=== PATIENT | male | born 1945 | race Caucasian/White ===

== ENCOUNTER 2017-03-05 20:19 | Inpatient (IN) | payer MEDICARE ==
[~2017-03-05] VITALS: Ht 172.7 cm; Wt 115.8 kg
[2017-03-06] MEDS ORDERED: METO25TA4 PO (02:40)
[2017-03-06] MEDS ORDERED: TERB250T PO (02:40)
[2017-03-06] MEDS ORDERED: PRAV40TA2 PO (02:40)
[2017-03-06] MEDS ORDERED: KETO15VI18 IV (02:40)
[2017-03-06] MEDS ORDERED: POTA20TA4 PO (02:40)
[2017-03-06] MEDS ORDERED: LISI-334 PO (02:40)
[2017-03-06] MEDS ORDERED: FURO-68 PO (02:40)
[2017-03-06] MEDS ORDERED: INSU100I13 SQ (02:40)
[2017-03-06] MEDS ORDERED: INSU100I17 SQ (02:40)
[2017-03-06] MEDS ORDERED: GABA-585 PO (02:40)
[2017-03-06] MEDS ORDERED: ACET325T9 PO (02:40)
[2017-03-06] MEDS ORDERED: VENL75CA PO (02:40)
[2017-03-06] MEDS ORDERED: GABA-586 PO (02:40)
[2017-03-06 15:28] VITALS: BP 182/80
[2017-03-06] MEDS ORDERED: MAG HYDROX/AL HYDROX/SIMETH 30 ML ORAL.SUSP PO PRN (16:15)
[2017-03-06] MEDS ORDERED: METHYL SALICYLATE/MENTHOL TOPICAL OINTMENT 29GM TUBE. TP PRN (16:15)
[2017-03-06 16:18] VITALS: BP 182/80
[2017-03-06] MEDS ORDERED: ACETAMINOPHEN 325 MG TABLET PO PRN (16:30)
[2017-03-06] MEDS ORDERED: DEXTROSE ORAL GEL 15 GM TUBE. PO PRN (16:30)
[2017-03-06] MEDS ORDERED: DEXTROSE 50% 25 GM / 50ML DISP.SYRIN. IV PRN (16:30)
--- NOTE | 2017-03-06 16:54 | EKG ---
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
[2017-03-06 17:17] LABS: ALBUMIN 3.1 g/dL (3.4-5.0); ALBUMIN/GLOBULIN RATIO 0.7 (1.0-1.7); CALCIUM 8.6 mg/dL (8.5-10.1); GFR 73.5; MAGNESIUM 1.9 mg/dL (1.8-2.4); POTASSIUM 3.9 mmol/L (3.5-5.1); TOTAL BILIRUBIN 0.4 mg/dL (0.2-1.0); TOTAL PROTEIN 7.3 g/dL (6.4-8.2)
[2017-03-06 17:34] LABS: BASO % 0 % (0-3); EOS # 0.1 x10^3/uL (0.0-0.7); EOS % 1 % (0-3); HEMATOCRIT 44.4 % (39.0-53.0); HEMOGLOBIN 14.9 g/dL (13.0-17.5); LYMPH # 0.8 x10^3/uL (1.0-4.8); LYMPH % 9 % (24-48); MEAN CORPUSCULAR HEMOGLOBIN 30 pg (25-35); MEAN CORPUSCULAR HGB CONC 34 g/dL (31-37); MEAN CORPUSCULAR VOLUME 90 fL (79-100); MONO # 0.5 x10^3/uL (0.0-1.1); MONO % 6 % (0-9); NEUT # 7.4 x10^3uL (1.8-7.7); NEUT % 83 % (31-73); PLATELET COUNT 146 x10^3/uL (140-400); RED BLOOD COUNT 4.95 x10^6/uL (4.30-5.70); RED CELL DISTRIBUTION WIDTH 14.9 % (11.5-14.5); WHITE BLOOD COUNT 8.9 x10^3/uL (4.0-11.0)
[2017-03-06] MEDS: INSULIN ASPART 300 UNITS/3 ML INSULN.PEN SQ SCH ×3 (18:09→21:00)
[2017-03-06] MEDS: GABAPENTIN 300 MG CAPSULE. PO SCH (19:36)
[2017-03-06] MEDS: PRAVASTATIN 20 MG TABLET. PO SCH (19:37)
[2017-03-06] MEDS: METOPROLOL TART IMMED RELEASE 25 MG TABLET PO SCH (19:37)
[2017-03-06] MEDS: TERBINAFINE 1% TOPICAL CREAM 30GM TUBE. TP SCH (19:44)
[2017-03-06] MEDS ORDERED: INSULIN DETEMIR 300 UNITS/3 ML INSULN.PEN. SQ SCH ×3 (21:00)
[2017-03-06] MEDS: NYSTATIN/TRIAMCIN TOPICAL CREAM 15GM TUBE. TP SCH (22:32)
[2017-03-07 03:16] LABS: T3 TOTAL 96 ng/dL (71-180); THYROXINE 6.7 ug/dL (4.5-12.0)
[2017-03-07 05:08] LABS: HEMOGLOBIN A1C 10.6 % (4.8-5.6)
[2017-03-07 05:52] VITALS: BP 166/79
[2017-03-07] MEDS: NYSTATIN/TRIAMCIN TOPICAL CREAM 15GM TUBE. TP SCH ×2 (06:00→19:34)
[2017-03-07] MEDS: TERBINAFINE 1% TOPICAL CREAM 30GM TUBE. TP SCH ×2 (06:00→19:34)
[2017-03-07] MEDS: INSULIN ASPART 300 UNITS/3 ML INSULN.PEN SQ SCH ×7 (07:30→17:24)
[2017-03-07] MEDS: GABAPENTIN 100 MG CAPSULE. PO SCH ×2 (08:05→11:34)
[2017-03-07] MEDS: FLUCONAZOLE 100 MG TABLET. PO SCH (08:06)
[2017-03-07] MEDS: VENLAFAXINE XR 37.5 MG CAP.ER.24H. PO SCH (08:06)
[2017-03-07] MEDS: POTASSIUM CHLORIDE 20 MEQ TABLET.ER. PO SCH (08:07)
[2017-03-07] MEDS: FUROSEMIDE 40 MG TABLET PO SCH (08:07)
[2017-03-07] MEDS: METOPROLOL TART IMMED RELEASE 25 MG TABLET PO SCH ×2 (08:07→19:32)
[2017-03-07] MEDS: INSULIN DETEMIR 300 UNITS/3 ML INSULN.PEN. SQ SCH ×2 (08:58→19:34)
[2017-03-07] MEDS ORDERED: LISINOPRIL 20 MG TABLET PO SCH (09:00)
[2017-03-07] MEDS ORDERED: INSULIN DETEMIR 300 UNITS/3 ML INSULN.PEN. SQ SCH ×2 (09:00)
[2017-03-07 11:56] LABS: THYROID STIM HORMONE (TSH) 1.831 uIU/mL (0.358-3.740)
[2017-03-07 15:41] VITALS: BP 167/76
[2017-03-07] MEDS: PRAVASTATIN 20 MG TABLET. PO SCH (19:32)
[2017-03-07] MEDS: GABAPENTIN 300 MG CAPSULE. PO SCH (19:32)
[2017-03-07] MEDS: CHOLECALCIFEROL (VITAMIN D3) 50,000 UNIT CAPSULE PO SCH (19:33)
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
[2017-03-08 05:54] VITALS: BP 174/80
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
[2017-03-08] MEDS: INSULIN ASPART 300 UNITS/3 ML INSULN.PEN SQ SCH ×5 (07:30→18:12)
[2017-03-08] MEDS: GABAPENTIN 100 MG CAPSULE. PO SCH ×2 (07:54→11:32)
[2017-03-08] MEDS: FLUCONAZOLE 100 MG TABLET. PO SCH (09:08)
[2017-03-08] MEDS: POTASSIUM CHLORIDE 20 MEQ TABLET.ER. PO SCH (09:09)
[2017-03-08] MEDS: FUROSEMIDE 40 MG TABLET PO SCH (09:09)
[2017-03-08] MEDS: VENLAFAXINE XR 37.5 MG CAP.ER.24H. PO SCH (09:09)
[2017-03-08] MEDS: NYSTATIN/TRIAMCIN TOPICAL CREAM 15GM TUBE. TP SCH ×2 (09:10→19:27)
[2017-03-08] MEDS: METOPROLOL TART IMMED RELEASE 25 MG TABLET PO SCH ×2 (09:10→19:29)
[2017-03-08] MEDS: LISINOPRIL 20 MG TABLET PO SCH (09:13)
[2017-03-08] MEDS: INSULIN DETEMIR 300 UNITS/3 ML INSULN.PEN. SQ SCH ×2 (09:28→19:30)
[2017-03-08] MEDS: TERBINAFINE 1% TOPICAL CREAM 30GM TUBE. TP SCH ×2 (09:29→19:27)
[2017-03-08] MEDS: NYSTATIN TOPICAL POWDER 15GM BOTTLE. TP PRN ×2 (13:03→19:28)
[2017-03-08 16:36] VITALS: BP 151/69
[2017-03-08] MEDS: GABAPENTIN 300 MG CAPSULE. PO SCH (19:28)
[2017-03-08] MEDS: PRAVASTATIN 20 MG TABLET. PO SCH (19:28)
--- NOTE | 2017-03-09 01:55 | PN ---
DATE: 03/08/2017 SUBJECTIVE: The patient was seen today, met with the staff, chart reviewed. The patient's behavior improved, withdrawn, isolative. Staff reports no major problems. The patient denies of any physical complaints. OBSERVATION: VITAL SIGNS: Temperature 97.3, blood pressure 174/80, pulse 71, respirations 14, O2 sat 94%. Slept about 7-1/2 hours last night. CURRENT MEDICATIONS: The patient's current medications include Effexor 75 mg daily, gabapentin 100 mg b.i.d. and 300 mg at night. The patient currently not admitting to having any major problems, feeling depressed. The patient's main problem being impulsive, poor decision making, lack of insight and also history of alcoholism, not able to stay clean. ASSESSMENT: 1. Alcohol dependence, chronic. 2. Cognitive disorder, unspecified. 3. Rule out alcohol amnestic disorder. PLAN: Continue with the treatment. WILI FREEMAN MD DR: KEISHA/james JOB#: [id number] / [id number]
[2017-03-09 06:11] VITALS: BP 161/82
[2017-03-09] MEDS: INSULIN ASPART 300 UNITS/3 ML INSULN.PEN SQ SCH ×6 (07:30→18:11)
[2017-03-09] MEDS: METOPROLOL TART IMMED RELEASE 25 MG TABLET PO SCH ×2 (07:57→19:54)
[2017-03-09] MEDS: LISINOPRIL 20 MG TABLET PO SCH (07:57)
[2017-03-09] MEDS: FUROSEMIDE 40 MG TABLET PO SCH (07:58)
[2017-03-09] MEDS: FLUCONAZOLE 100 MG TABLET. PO SCH (07:58)
[2017-03-09] MEDS: POTASSIUM CHLORIDE 20 MEQ TABLET.ER. PO SCH (07:58)
[2017-03-09] MEDS: GABAPENTIN 100 MG CAPSULE. PO SCH ×2 (07:58→12:39)
[2017-03-09] MEDS: VENLAFAXINE XR 37.5 MG CAP.ER.24H. PO SCH (07:58)
[2017-03-09] MEDS: TERBINAFINE 1% TOPICAL CREAM 30GM TUBE. TP SCH ×2 (07:59→19:51)
[2017-03-09] MEDS: NYSTATIN/TRIAMCIN TOPICAL CREAM 15GM TUBE. TP SCH ×2 (08:00→19:51)
[2017-03-09] MEDS: INSULIN DETEMIR 300 UNITS/3 ML INSULN.PEN. SQ SCH ×2 (08:04→19:56)
[2017-03-09 15:58] VITALS: BP 163/86
[2017-03-09] MEDS: GABAPENTIN 300 MG CAPSULE. PO SCH (19:52)
[2017-03-09] MEDS: QUEtiapine 25 MG TABLET. PO SCH (19:54)
[2017-03-09] MEDS: PRAVASTATIN 20 MG TABLET. PO SCH (19:55)
--- NOTE | 2017-03-09 20:35 | PDOC ---
Exam Adriano Demential Exam: Adriano Note: Please also refer to the separate dictated note~for this date of service dictated separately.~Patient seen individually. Discussed the patient with Nursing staff reviewed the chart.~Reviewed interim history and current functioning. Reviewed vital signs,~Labs/ Radiology~and current medications noted below. Continue current treatment with the changes noted in the dictated addendum note Assessment: Vital Signs: Vital Signs Date Time Temp Pulse Resp B/P (MAP) Pulse Ox O2 Delivery O2 Flow Rate FiO2 03/09/17 19:54 65 163/86 03/09/17 15:58 97.6 16 96 03/09/17 06:11 Room Air I&O Intake and Output 03/10/17 07:00 Intake Total 1040 ml Balance 1040 ml Intake Oral 1040 ml Labs: Laboratory Tests Test 03/09/17 06:59 03/09/17 11:32 03/09/17 17:29 03/09/17 19:20 Glucose (Fingerstick) 93 mg/dL (70-99) 198 mg/dL (70-99) H 240 mg/dL (70-99) H 236 mg/dL (70-99) H Current Medications: Meds: Current Medications Multi-Ingredient Ointment (Analgesic [place]) 1 raquel PRN QID PRN TP MUSCLE PAIN; Start 03/06/17 at 16:15 Al Hydroxide/Mg Hydroxide (Mylanta Plus Xs) 15 ml PRN AFTMEALHC PRN PO DYSPEPSIA; Start 03/06/17 at 16:15 Magnesium Hydroxide (Milk Of Magnesia) 2,400 mg PRN QHS PRN PO CONSTIPATION; Start 03/06/17 at 16:15 Acetaminophen (Tylenol) 650 mg PRN Q6HRS PRN PO PAIN / TEMP Last administered on 03/08/17 08:02; Start 03/06/17 at 16:30 Furosemide (Lasix) 40 mg DAILY PO Last administered on 03/09/17 07:58; Start 03/07/17 at 09:00 Gabapentin (Neurontin) 100 mg BIDACBL PO Last administered on 03/09/17 12:39 ; Start 03/07/17 at 07:30 Gabapentin (Neurontin) 300 mg QHS PO Last administered on 03/09/17 19:52; Start 03/06/17 at 21:00 Lisinopril (Prinivil) 20 mg DAILY PO Last administered on 03/07/17 08:07; Start 03/07/17 at 09:00; Stop 03/07/17 at 18:30; Status DC Metoprolol Tartrate (Lopressor) 25 mg BID PO Last administered on 03/09/17 19 :54; Start 03/06/17 at 21:00 Potassium Chloride (Klor-Con) 20 meq DAILY PO Last administered on 03/09/17 07:58; Start 03/07/17 at 09:00 Terbinafine HCl (LamISIL) 1 raquel BID TP Last administered on 03/09/17 19:51; Start 03/06/17 at 21:00 Insulin Detemir (Levemir) 30 units BID SQ ; Start 03/06/17 at 21:00; Stop at 21:00; Status DC Pravastatin Sodium (Pravachol) 40 mg QHS PO Last administered on 03/09/17 19: 55; Start 03/06/17 at 21:00 Venlafaxine HCl (Effexor Xr) 75 mg DAILY PO Last administered on 03/09/17 07: 58; Start 03/07/17 at 09:00 Insulin Aspart (NovoLOG) TID SQ Last administered on 03/06/17 18:09; Start 03/06/17 at 18:00; Stop 03/06/17 at 22:31; Status DC Dextrose 12.5 gm PRN Q15MIN PRN IV SEE COMMENTS; Start 03/06/17 at 16:30 Glucose (Insta-Glucose) 15 gm PRN Q15MIN PRN PO LOW BLOOD SUGAR; Start at 16:30 Insulin Detemir (Levemir) 36 units HS SQ ; Start 03/06/17 at 21:00; Stop 03/06 at 21:00; Status DC Insulin Detemir (Levemir) 30 units DAILY SQ ; Start 03/07/17 at 09:00; Stop at 09:00; Status DC Insulin Detemir (Levemir) 40 units HS SQ Last administered on 03/06/17 19:44 ; Start 03/06/17 at 21:00; Stop 03/06/17 at 22:31; Status DC Insulin Detemir (Levemir) 40 units DAILY SQ ; Start 03/07/17 at 09:00; Stop at 09:00; Status DC Fluconazole (Diflucan) 100 mg DAILY PO Last administered on 03/09/17 07:58; Start 03/07/17 at 09:00; Stop 03/14/17 at 09:01 Nystatin/ Triamcinolone Acetonide (Mycolog Ii) 1 raquel BID TP Last administered on 03/09/17 19:51; Start 03/06/17 at 21:00 Nystatin (Nystop) 1 raquel PRN BID PRN TP REDNESS Last administered on 03/08/17 19:28; Start 03/06/17 at 17:30 Insulin Aspart (NovoLOG) 5 units TIDAC SQ Last administered on 03/07/17 11:30 ; Start 03/06/17 at 18:00; Stop 03/07/17 at 17:21; Status DC Insulin Aspart (NovoLOG) TIDAC SQ Last administered on 03/09/17 18:11; Start 03/07/17 at 07:30 Insulin Detemir (Levemir) 40 units BID SQ Last administered on 03/09/17 19:56 ; Start 03/07/17 at 09:00 Insulin Aspart (NovoLOG) 10 units TIDAC SQ Last administered on 03/09/17 18: 11; Start 03/08/17 at 07:30 Lisinopril (Prinivil) 40 mg DAILY PO Last administered on 03/09/17 07:57; Start 03/08/17 at 09:00 Vitamin D (Vitamin D3) 50,000 unit Sa@2000 PO Last administered on 03/07/17 19:33; Start 03/07/17 at 20:00 Quetiapine Fumarate (SEROquel) 25 mg QHS PO Last administered on 03/09/17 19: 54; Start 03/09/17 at 21:00 Active Scripts Active Reported Effexor Xr (Venlafaxine Hcl) 75 Mg Cap.er.24h 75 Mg PO DAILY Lamisil (Terbinafine Hcl) 250 Mg Tablet 1 Raquel PO BID Pravastatin Sodium 40 Mg Tablet 40 Mg PO QHS Klor-Con M20 (Potassium Chloride) 20 Meq Tab.er.prt 20 Meq PO DAILY Metoprolol Tartrate 25 Mg Tablet 25 Mg PO BID Lisinopril 20 Mg Tablet 20 Mg PO DAILY Lantus Solostar (Insulin Glargine,Hum.rec.anlog) 100 Unit/1 Ml Insuln.pen 30 Unit SQ BID Gabapentin 300 Mg Capsule 300 Mg PO QHS Gabapentin 100 Mg Capsule 100 Mg PO BIDACBL Lasix (Furosemide) 40 Mg Tablet 40 Mg PO DAILY Tylenol (Acetaminophen) 325 Mg Tablet 650 Mg PO PRN Q4-6HRS PRN LIZ DIANE MD Mar 09, 2017 20:35
[2017-03-10 05:46] VITALS: BP 177/82
[2017-03-10] MEDS: INSULIN ASPART 300 UNITS/3 ML INSULN.PEN SQ SCH ×6 (07:30→17:55)
[2017-03-10] MEDS: NYSTATIN/TRIAMCIN TOPICAL CREAM 15GM TUBE. TP SCH ×2 (08:39→20:04)
[2017-03-10] MEDS: POTASSIUM CHLORIDE 20 MEQ TABLET.ER. PO SCH (08:39)
[2017-03-10] MEDS: TERBINAFINE 1% TOPICAL CREAM 30GM TUBE. TP SCH ×2 (08:39→20:04)
[2017-03-10] MEDS: GABAPENTIN 100 MG CAPSULE. PO SCH ×2 (08:40→12:16)
[2017-03-10] MEDS: LISINOPRIL 20 MG TABLET PO SCH (08:41)
[2017-03-10] MEDS: FLUCONAZOLE 100 MG TABLET. PO SCH (08:41)
[2017-03-10] MEDS: FUROSEMIDE 40 MG TABLET PO SCH (08:41)
[2017-03-10] MEDS: METOPROLOL TART IMMED RELEASE 25 MG TABLET PO SCH ×2 (08:41→20:02)
[2017-03-10] MEDS: VENLAFAXINE XR 37.5 MG CAP.ER.24H. PO SCH (08:41)
[2017-03-10] MEDS: INSULIN DETEMIR 300 UNITS/3 ML INSULN.PEN. SQ SCH ×2 (08:46→20:06)
[2017-03-10 16:07] VITALS: BP 128/71
[2017-03-10] MEDS: GABAPENTIN 300 MG CAPSULE. PO SCH (20:02)
[2017-03-10] MEDS: PRAVASTATIN 20 MG TABLET. PO SCH (20:02)
[2017-03-10] MEDS: QUEtiapine 25 MG TABLET. PO SCH (20:02)
--- NOTE | 2017-03-10 22:01 | PDOC ---
Exam Adriano Demential Exam: Adriano Note: Please also refer to the separate dictated note~for this date of service dictated separately.~Patient seen individually. Discussed the patient with Nursing staff reviewed the chart.~Reviewed interim history and current functioning. Reviewed vital signs,~Labs/ Radiology~and current medications noted below. Continue current treatment with the changes noted in the dictated addendum note Assessment: Vital Signs: Vital Signs Date Time Temp Pulse Resp B/P (MAP) Pulse Ox O2 Delivery O2 Flow Rate FiO2 03/10/17 20:02 76 128/71 03/10/17 16:07 97.8 20 94 03/09/17 06:11 Room Air I&O Intake and Output 03/11/17 07:00 Intake Total 1200 ml Balance 1200 ml Intake Oral 1200 ml Labs: Laboratory Tests Test 03/10/17 07:55 03/10/17 11:17 03/10/17 16:17 03/10/17 18:59 Glucose (Fingerstick) 143 mg/dL (70-99) H 251 mg/dL (70-99) H 276 mg/dL (70-99) H 247 mg/dL (70-99) H Current Medications: Meds: Current Medications Multi-Ingredient Ointment (Analgesic [place]) 1 raquel PRN QID PRN TP MUSCLE PAIN; Start 03/06/17 at 16:15 Al Hydroxide/Mg Hydroxide (Mylanta Plus Xs) 15 ml PRN AFTMEALHC PRN PO DYSPEPSIA; Start 03/06/17 at 16:15 Magnesium Hydroxide (Milk Of Magnesia) 2,400 mg PRN QHS PRN PO CONSTIPATION; Start 03/06/17 at 16:15 Acetaminophen (Tylenol) 650 mg PRN Q6HRS PRN PO PAIN / TEMP Last administered on 03/08/17 08:02; Start 03/06/17 at 16:30 Furosemide (Lasix) 40 mg DAILY PO Last administered on 03/10/17 08:41; Start 03/07/17 at 09:00 Gabapentin (Neurontin) 100 mg BIDACBL PO Last administered on 03/10/17 12:16 ; Start 03/07/17 at 07:30 Gabapentin (Neurontin) 300 mg QHS PO Last administered on 03/10/17 20:02; Start 03/06/17 at 21:00 Lisinopril (Prinivil) 20 mg DAILY PO Last administered on 03/07/17 08:07; Start 03/07/17 at 09:00; Stop 03/07/17 at 18:30; Status DC Metoprolol Tartrate (Lopressor) 25 mg BID PO Last administered on 03/10/17 20 :02; Start 03/06/17 at 21:00 Potassium Chloride (Klor-Con) 20 meq DAILY PO Last administered on 03/10/17 08:39; Start 03/07/17 at 09:00 Terbinafine HCl (LamISIL) 1 raquel BID TP Last administered on 03/10/17 20:04; Start 03/06/17 at 21:00 Insulin Detemir (Levemir) 30 units BID SQ ; Start 03/06/17 at 21:00; Stop at 21:00; Status DC Pravastatin Sodium (Pravachol) 40 mg QHS PO Last administered on 03/10/17 20: 02; Start 03/06/17 at 21:00 Venlafaxine HCl (Effexor Xr) 75 mg DAILY PO Last administered on 03/10/17 08: 41; Start 03/07/17 at 09:00 Insulin Aspart (NovoLOG) TID SQ Last administered on 03/06/17 18:09; Start 03/06/17 at 18:00; Stop 03/06/17 at 22:31; Status DC Dextrose 12.5 gm PRN Q15MIN PRN IV SEE COMMENTS; Start 03/06/17 at 16:30 Glucose (Insta-Glucose) 15 gm PRN Q15MIN PRN PO LOW BLOOD SUGAR; Start at 16:30 Insulin Detemir (Levemir) 36 units HS SQ ; Start 03/06/17 at 21:00; Stop 03/06 at 21:00; Status DC Insulin Detemir (Levemir) 30 units DAILY SQ ; Start 03/07/17 at 09:00; Stop at 09:00; Status DC Insulin Detemir (Levemir) 40 units HS SQ Last administered on 03/06/17 19:44 ; Start 03/06/17 at 21:00; Stop 03/06/17 at 22:31; Status DC Insulin Detemir (Levemir) 40 units DAILY SQ ; Start 03/07/17 at 09:00; Stop at 09:00; Status DC Fluconazole (Diflucan) 100 mg DAILY PO Last administered on 03/10/17 08:41; Start 03/07/17 at 09:00; Stop 03/14/17 at 09:01 Nystatin/ Triamcinolone Acetonide (Mycolog Ii) 1 raquel BID TP Last administered on 03/10/17 20:04; Start 03/06/17 at 21:00 Nystatin (Nystop) 1 raquel PRN BID PRN TP REDNESS Last administered on 03/08/17 19:28; Start 03/06/17 at 17:30 Insulin Aspart (NovoLOG) 5 units TIDAC SQ Last administered on 03/07/17 11:30 ; Start 03/06/17 at 18:00; Stop 03/07/17 at 17:21; Status DC Insulin Aspart (NovoLOG) TIDAC SQ Last administered on 03/10/17 17:54; Start 03/07/17 at 07:30 Insulin Detemir (Levemir) 40 units BID SQ Last administered on 03/10/17 20:06 ; Start 03/07/17 at 09:00 Insulin Aspart (NovoLOG) 10 units TIDAC SQ Last administered on 03/10/17 17: 55; Start 03/08/17 at 07:30 Lisinopril (Prinivil) 40 mg DAILY PO Last administered on 03/10/17 08:41; Start 03/08/17 at 09:00 Vitamin D (Vitamin D3) 50,000 unit Sa@2000 PO Last administered on 03/07/17 19:33; Start 03/07/17 at 20:00 Quetiapine Fumarate (SEROquel) 25 mg QHS PO Last administered on 03/10/17 20: 02; Start 03/09/17 at 21:00 Active Scripts Active Reported Effexor Xr (Venlafaxine Hcl) 75 Mg Cap.er.24h 75 Mg PO DAILY Lamisil (Terbinafine Hcl) 250 Mg Tablet 1 Raquel PO BID Pravastatin Sodium 40 Mg Tablet 40 Mg PO QHS Klor-Con M20 (Potassium Chloride) 20 Meq Tab.er.prt 20 Meq PO DAILY Metoprolol Tartrate 25 Mg Tablet 25 Mg PO BID Lisinopril 20 Mg Tablet 20 Mg PO DAILY Lantus Solostar (Insulin Glargine,Hum.rec.anlog) 100 Unit/1 Ml Insuln.pen 30 Unit SQ BID Gabapentin 300 Mg Capsule 300 Mg PO QHS Gabapentin 100 Mg Capsule 100 Mg PO BIDACBL Lasix (Furosemide) 40 Mg Tablet 40 Mg PO DAILY Tylenol (Acetaminophen) 325 Mg Tablet 650 Mg PO PRN Q4-6HRS PRN LIZ DIANE MD Mar 10, 2017 22:01
--- NOTE | 2017-03-11 00:41 | PN ---
DATE: 03/09/2017 PSYCHIATRIC PROGRESS NOTE DATE OF SERVICE: 03/09/2017 This late entry date of service 03/09/2017 covers elements not covered in my initial note. SUBJECTIVE: The patient was seen individually in evening of 03/09/2017. Discussed with nursing staff, reviewed the chart, also discussed with Dr. Seaman who has covered for me during my vacation over the past 1 week. The patient slept 1-1/2 hours previous evening. Reviewed current past records. The patient is oriented to himself, place and time. As I met with him, he was away, the year was 2016. He was at [place], but was unable to answer when I asked him what city he lived. He has been withdrawn, isolative, short-term memory is impaired, compliant with his medications. He was lying in bed as I met with him, did interactive with me. REVIEW OF SYSTEMS: No CV, , pulmonary, eye, ENT system symptoms on review. Reliability is fair. MENTAL STATUS EXAM: Oriented to himself, situation. Speech moderate latency, often responses monosyllabic. Abstraction fair, computation impaired, language function intact, attention span short, mood and affect withdrawn. LABORATORY DATA: Reviewed. 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 PLAN: Continue Effexor XR 75 mg a day. The patient appears somewhat paranoid, anxious. Start Seroquel 25 mg p.o. at bedtime. Reviewed drug interactions ,risk/benefit ratio, favors no further change. MAN Newton DIANE MD DR: MATILDA/james JOB#: [id number] / [id number]
[2017-03-11 05:34] VITALS: BP 121/94
[2017-03-11] MEDS: INSULIN ASPART 300 UNITS/3 ML INSULN.PEN SQ SCH ×6 (07:30→17:18)
[2017-03-11] MEDS: INSULIN DETEMIR 300 UNITS/3 ML INSULN.PEN. SQ SCH ×2 (08:12→19:42)
[2017-03-11] MEDS: GABAPENTIN 100 MG CAPSULE. PO SCH ×2 (08:13→12:35)
[2017-03-11] MEDS: FLUCONAZOLE 100 MG TABLET. PO SCH (08:13)
[2017-03-11] MEDS: POTASSIUM CHLORIDE 20 MEQ TABLET.ER. PO SCH (08:13)
[2017-03-11] MEDS: LISINOPRIL 20 MG TABLET PO SCH (08:14)
[2017-03-11] MEDS: VENLAFAXINE XR 37.5 MG CAP.ER.24H. PO SCH (08:14)
[2017-03-11] MEDS: METOPROLOL TART IMMED RELEASE 25 MG TABLET PO SCH ×2 (08:15→19:40)
[2017-03-11] MEDS: FUROSEMIDE 40 MG TABLET PO SCH (08:15)
[2017-03-11] MEDS: NYSTATIN/TRIAMCIN TOPICAL CREAM 15GM TUBE. TP SCH ×2 (09:56→19:42)
[2017-03-11] MEDS: TERBINAFINE 1% TOPICAL CREAM 30GM TUBE. TP SCH ×2 (09:56→19:42)
[2017-03-11 16:28] VITALS: BP 158/100
[2017-03-11] MEDS: GABAPENTIN 300 MG CAPSULE. PO SCH (19:40)
[2017-03-11] MEDS: PRAVASTATIN 20 MG TABLET. PO SCH (19:40)
[2017-03-11] MEDS: QUEtiapine 25 MG TABLET. PO SCH (19:40)
--- NOTE | 2017-03-11 20:43 | PDOC ---
Exam Adriano Demential Exam: Adriano Note: Please also refer to the separate dictated note~for this date of service dictated separately.~Patient seen individually. Discussed the patient with Nursing staff reviewed the chart.~Reviewed interim history and current functioning. Reviewed vital signs,~Labs/ Radiology~and current medications noted below. Continue current treatment with the changes noted in the dictated addendum note Assessment: Vital Signs: Vital Signs Date Time Temp Pulse Resp B/P (MAP) Pulse Ox O2 Delivery O2 Flow Rate FiO2 03/11/17 19:40 72 158/100 03/11/17 16:28 97.6 16 97 Room Air I&O Intake and Output 03/12/17 07:00 Intake Total 1200 ml Balance 1200 ml Intake Oral 1200 ml Labs: Laboratory Tests Test 03/11/17 07:10 03/11/17 11:32 03/11/17 16:47 03/11/17 19:05 Glucose (Fingerstick) 90 mg/dL (70-99) 171 mg/dL (70-99) H 354 mg/dL (70-99) H 256 mg/dL (70-99) H Current Medications: Meds: Current Medications Multi-Ingredient Ointment (Analgesic [place]) 1 raquel PRN QID PRN TP MUSCLE PAIN; Start 03/06/17 at 16:15 Al Hydroxide/Mg Hydroxide (Mylanta Plus Xs) 15 ml PRN AFTMEALHC PRN PO DYSPEPSIA; Start 03/06/17 at 16:15 Magnesium Hydroxide (Milk Of Magnesia) 2,400 mg PRN QHS PRN PO CONSTIPATION; Start 03/06/17 at 16:15 Acetaminophen (Tylenol) 650 mg PRN Q6HRS PRN PO PAIN / TEMP Last administered on 03/08/17 08:02; Start 03/06/17 at 16:30 Furosemide (Lasix) 40 mg DAILY PO Last administered on 03/11/17 08:15; Start 03/07/17 at 09:00 Gabapentin (Neurontin) 100 mg BIDACBL PO Last administered on 03/11/17 12:35; Start 03/07/17 at 07:30 Gabapentin (Neurontin) 300 mg QHS PO Last administered on 03/11/17 19:40; Start 03/06/17 at 21:00 Lisinopril (Prinivil) 20 mg DAILY PO Last administered on 03/07/17 08:07; Start 03/07/17 at 09:00; Stop 03/07/17 at 18:30; Status DC Metoprolol Tartrate (Lopressor) 25 mg BID PO Last administered on 03/11/17 19: 40; Start 03/06/17 at 21:00 Potassium Chloride (Klor-Con) 20 meq DAILY PO Last administered on 03/11/17 08 :13; Start 03/07/17 at 09:00 Terbinafine HCl (LamISIL) 1 raquel BID TP Last administered on 03/11/17 19:42; Start 03/06/17 at 21:00 Insulin Detemir (Levemir) 30 units BID SQ ; Start 03/06/17 at 21:00; Stop at 21:00; Status DC Pravastatin Sodium (Pravachol) 40 mg QHS PO Last administered on 03/11/17 19: 40; Start 03/06/17 at 21:00 Venlafaxine HCl (Effexor Xr) 75 mg DAILY PO Last administered on 03/11/17 08: 14; Start 03/07/17 at 09:00 Insulin Aspart (NovoLOG) TID SQ Last administered on 03/06/17 18:09; Start 03/06/17 at 18:00; Stop 03/06/17 at 22:31; Status DC Dextrose 12.5 gm PRN Q15MIN PRN IV SEE COMMENTS; Start 03/06/17 at 16:30 Glucose (Insta-Glucose) 15 gm PRN Q15MIN PRN PO LOW BLOOD SUGAR; Start at 16:30 Insulin Detemir (Levemir) 36 units HS SQ ; Start 03/06/17 at 21:00; Stop 03/06 at 21:00; Status DC Insulin Detemir (Levemir) 30 units DAILY SQ ; Start 03/07/17 at 09:00; Stop at 09:00; Status DC Insulin Detemir (Levemir) 40 units HS SQ Last administered on 03/06/17 19:44 ; Start 03/06/17 at 21:00; Stop 03/06/17 at 22:31; Status DC Insulin Detemir (Levemir) 40 units DAILY SQ ; Start 03/07/17 at 09:00; Stop at 09:00; Status DC Fluconazole (Diflucan) 100 mg DAILY PO Last administered on 03/11/17 08:13; Start 03/07/17 at 09:00; Stop 03/14/17 at 09:01 Nystatin/ Triamcinolone Acetonide (Mycolog Ii) 1 raquel BID TP Last administered on 03/11/17 19:42; Start 03/06/17 at 21:00 Nystatin (Nystop) 1 raquel PRN BID PRN TP REDNESS Last administered on 03/08/17 19:28; Start 03/06/17 at 17:30 Insulin Aspart (NovoLOG) 5 units TIDAC SQ Last administered on 03/07/17 11:30 ; Start 03/06/17 at 18:00; Stop 03/07/17 at 17:21; Status DC Insulin Aspart (NovoLOG) TIDAC SQ Last administered on 03/11/17 17:16; Start 03/07/17 at 07:30 Insulin Detemir (Levemir) 40 units BID SQ Last administered on 03/11/17 19:42 ; Start 03/07/17 at 09:00 Insulin Aspart (NovoLOG) 10 units TIDAC SQ Last administered on 03/11/17 17:18 ; Start 03/08/17 at 07:30 Lisinopril (Prinivil) 40 mg DAILY PO Last administered on 03/11/17 08:14; Start 03/08/17 at 09:00 Vitamin D (Vitamin D3) 50,000 unit Sa@2000 PO Last administered on 03/07/17 19:33; Start 03/07/17 at 20:00 Quetiapine Fumarate (SEROquel) 25 mg QHS PO Last administered on 03/11/17 19: 40; Start 03/09/17 at 21:00 Active Scripts Active Reported Effexor Xr (Venlafaxine Hcl) 75 Mg Cap.er.24h 75 Mg PO DAILY Lamisil (Terbinafine Hcl) 250 Mg Tablet 1 Raquel PO BID Pravastatin Sodium 40 Mg Tablet 40 Mg PO QHS Klor-Con M20 (Potassium Chloride) 20 Meq Tab.er.prt 20 Meq PO DAILY Metoprolol Tartrate 25 Mg Tablet 25 Mg PO BID Lisinopril 20 Mg Tablet 20 Mg PO DAILY Lantus Solostar (Insulin Glargine,Hum.rec.anlog) 100 Unit/1 Ml Insuln.pen 30 Unit SQ BID Gabapentin 300 Mg Capsule 300 Mg PO QHS Gabapentin 100 Mg Capsule 100 Mg PO BIDACBL Lasix (Furosemide) 40 Mg Tablet 40 Mg PO DAILY Tylenol (Acetaminophen) 325 Mg Tablet 650 Mg PO PRN Q4-6HRS PRN LIZ DIANE MD Mar 11, 2017 20:43
--- NOTE | 2017-03-11 22:32 | PN ---
DATE: 03/10/2017 PSYCHIATRIC PROGRESS NOTE This is a late entry for 03/10/2017, covers elements not covered in my initial note of 03/10/2017. SUBJECTIVE: The patient has appeared depressed, anxious, somewhat withdrawn, but has come out a little bit more than the previous days. He was complaining of having inadequate amount of meal portions and I have discussed with nursing staff, we will give him double portions. REVIEW OF SYSTEMS: No CV, , pulmonary, eye, ENT system symptoms on review. MENTAL STATUS EXAM: Oriented to himself and situation. Speech has some latency, coherent. Abstraction fair, computation impaired, language function intact. Short term memory has deficits. No active suicidal or homicidal ideation. Attention span short. Language function intact. IMPRESSION: Unchanged from initial note. PLAN: Continue Effexor XR 75 mg a day starting on 03/11/2017, we will increase it to 112.5 mg a day. Maintain Seroquel 25 mg p.o. at bedtime, which was added to augment the Effexor to help with his mood lability, anxiety, and paranoia. Review drug interactions. Risk/benefit ratio favors no further change. LIZ DIANE MD DR: MATILDA/james JOB#: [id number] / [id number]
[2017-03-12 06:08] VITALS: BP 155/66
[2017-03-12 06:29] LABS: BASO % 0 % (0-3); EOS # 0.2 x10^3/uL (0.0-0.7); EOS % 3 % (0-3); HEMATOCRIT 42.1 % (39.0-53.0); LYMPH # 1.3 x10^3/uL (1.0-4.8); LYMPH % 22 % (24-48); MEAN CORPUSCULAR HEMOGLOBIN 30 pg (25-35); MEAN CORPUSCULAR HGB CONC 33 g/dL (31-37); MEAN CORPUSCULAR VOLUME 89 fL (79-100); MONO # 0.4 x10^3/uL (0.0-1.1); MONO % 7 % (0-9); NEUT % 67 % (31-73); PLATELET COUNT 141 x10^3/uL (140-400); RED BLOOD COUNT 4.71 x10^6/uL (4.30-5.70); RED CELL DISTRIBUTION WIDTH 15.1 % (11.5-14.5); WHITE BLOOD COUNT 5.9 x10^3/uL (4.0-11.0)
[2017-03-12 06:37] LABS: ALBUMIN 2.6 g/dL (3.4-5.0); ALBUMIN/GLOBULIN RATIO 0.7 (1.0-1.7); CALCIUM 8.1 mg/dL (8.5-10.1); CREATININE 0.9 mg/dL (0.7-1.3); GFR 82.9; POTASSIUM 3.8 mmol/L (3.5-5.1); TOTAL BILIRUBIN 0.3 mg/dL (0.2-1.0); TOTAL PROTEIN 6.2 g/dL (6.4-8.2)
[2017-03-12] MEDS: INSULIN ASPART 300 UNITS/3 ML INSULN.PEN SQ SCH ×6 (07:30→16:30)
[2017-03-12] MEDS: GABAPENTIN 100 MG CAPSULE. PO SCH ×2 (07:40→10:51)
[2017-03-12] MEDS: LISINOPRIL 20 MG TABLET PO SCH (07:40)
[2017-03-12] MEDS: VENLAFAXINE XR 37.5 MG CAP.ER.24H. PO SCH (07:41)
[2017-03-12] MEDS: FUROSEMIDE 40 MG TABLET PO SCH (07:41)
[2017-03-12] MEDS: FLUCONAZOLE 100 MG TABLET. PO SCH (07:42)
[2017-03-12] MEDS: METOPROLOL TART IMMED RELEASE 25 MG TABLET PO SCH ×2 (07:42→19:19)
[2017-03-12] MEDS: POTASSIUM CHLORIDE 20 MEQ TABLET.ER. PO SCH (07:42)
[2017-03-12] MEDS: INSULIN DETEMIR 300 UNITS/3 ML INSULN.PEN. SQ SCH ×2 (07:48→19:35)
[2017-03-12] MEDS: NYSTATIN/TRIAMCIN TOPICAL CREAM 15GM TUBE. TP SCH ×2 (07:51→19:34)
[2017-03-12] MEDS: TERBINAFINE 1% TOPICAL CREAM 30GM TUBE. TP SCH ×2 (07:51→19:34)
[2017-03-12 16:15] VITALS: BP 167/75
[2017-03-12] MEDS: GABAPENTIN 300 MG CAPSULE. PO SCH (19:19)
[2017-03-12] MEDS: PRAVASTATIN 20 MG TABLET. PO SCH (19:19)
[2017-03-12] MEDS: QUEtiapine 50 MG TABLET. PO SCH (19:33)
--- NOTE | 2017-03-12 20:34 | PDOC ---
Exam Adriano Demential Exam: Adriano Note: Please also refer to the separate dictated note~for this date of service dictated separately.~Patient seen individually. Discussed the patient with Nursing staff reviewed the chart.~Reviewed interim history and current functioning. Reviewed vital signs,~Labs/ Radiology~and current medications noted below. Continue current treatment with the changes noted in the dictated addendum note Assessment: Vital Signs: Vital Signs Date Time Temp Pulse Resp B/P (MAP) Pulse Ox O2 Delivery O2 Flow Rate FiO2 03/12/17 19:19 69 167/75 03/12/17 16:15 98.4 16 96 Room Air I&O Intake and Output 03/13/17 07:00 Intake Total 960 ml Balance 960 ml Intake Oral 960 ml Labs: Laboratory Tests Test 03/12/17 06:18 03/12/17 07:04 03/12/17 11:19 03/12/17 16:22 White Blood Count 5.9 x10^3/uL (4.0-11.0) Red Blood Count 4.71 x10^6/uL (4.30-5.70) Hemoglobin 14.0 g/dL (13.0-17.5) Hematocrit 42.1 % (39.0-53.0) Mean Corpuscular Volume 89 fL (79-100) Mean Corpuscular Hemoglobin 30 pg (25-35) Mean Corpuscular Hemoglobin Concent 33 g/dL (31-37) Red Cell Distribution Width 15.1 % (11.5-14.5) H Platelet Count 141 x10^3/uL (140-400) Neutrophils (%) (Auto) 67 % (31-73) Lymphocytes (%) (Auto) 22 % (24-48) L Monocytes (%) (Auto) 7 % (0-9) Eosinophils (%) (Auto) 3 % (0-3) Basophils (%) (Auto) 0 % (0-3) Neutrophils # (Auto) 4.0 x10^3uL (1.8-7.7) Lymphocytes # (Auto) 1.3 x10^3/uL (1.0-4.8) Monocytes # (Auto) 0.4 x10^3/uL (0.0-1.1) Eosinophils # (Auto) 0.2 x10^3/uL (0.0-0.7) Basophils # (Auto) 0.0 x10^3/uL (0.0-0.2) Sodium Level 141 mmol/L (136-145) Potassium Level 3.8 mmol/L (3.5-5.1) Chloride Level 106 mmol/L (98-107) Carbon Dioxide Level 31 mmol/L (21-32) Anion Gap 4 (6-14) L Blood Urea Nitrogen 16 mg/dL (8-26) Creatinine 0.9 mg/dL (0.7-1.3) Estimated GFR (Cockcroft-Gault) 82.9 BUN/Creatinine Ratio 18 (6-20) Glucose Level 86 mg/dL (70-99) Calcium Level 8.1 mg/dL (8.5-10.1) L Total Bilirubin 0.3 mg/dL (0.2-1.0) Aspartate Amino Transferase (AST) 16 U/L (15-37) Alanine Aminotransferase (ALT) 25 U/L (16-63) Alkaline Phosphatase 84 U/L (46-116) Total Protein 6.2 g/dL (6.4-8.2) L Albumin 2.6 g/dL (3.4-5.0) L Albumin/Globulin Ratio 0.7 (1.0-1.7) L Glucose (Fingerstick) 70 mg/dL (70-99) 312 mg/dL (70-99) H 289 mg/dL (70-99) H Test 03/12/17 19:15 Glucose (Fingerstick) 243 mg/dL (70-99) H Current Medications: Meds: Current Medications Multi-Ingredient Ointment (Analgesic [place]) 1 raquel PRN QID PRN TP MUSCLE PAIN; Start 03/06/17 at 16:15 Al Hydroxide/Mg Hydroxide (Mylanta Plus Xs) 15 ml PRN AFTMEALHC PRN PO DYSPEPSIA; Start 03/06/17 at 16:15 Magnesium Hydroxide (Milk Of Magnesia) 2,400 mg PRN QHS PRN PO CONSTIPATION; Start 03/06/17 at 16:15 Acetaminophen (Tylenol) 650 mg PRN Q6HRS PRN PO PAIN / TEMP Last administered on 03/08/17t 08:02; Start 03/06/17 at 16:30 Furosemide (Lasix) 40 mg DAILY PO Last administered on 03/12/17 07:41; Start 03/07/17 at 09:00 Gabapentin (Neurontin) 100 mg BIDACBL PO Last administered on 03/12/17 10:51; Start 03/07/17 at 07:30 Gabapentin (Neurontin) 300 mg QHS PO Last administered on 03/12/17 19:19; Start 03/06/17 at 21:00 Lisinopril (Prinivil) 20 mg DAILY PO Last administered on 03/07/17 08:07; Start 03/07/17 at 09:00; Stop 03/07/17 at 18:30; Status DC Metoprolol Tartrate (Lopressor) 25 mg BID PO Last administered on 03/12/17 19: 19; Start 03/06/17 at 21:00 Potassium Chloride (Klor-Con) 20 meq DAILY PO Last administered on 03/12/17 07 :42; Start 03/07/17 at 09:00 Terbinafine HCl (LamISIL) 1 raquel BID TP Last administered on 03/12/17 19:34; Start 03/06/17 at 21:00 Insulin Detemir (Levemir) 30 units BID SQ ; Start 03/06/17 at 21:00; Stop at 21:00; Status DC Pravastatin Sodium (Pravachol) 40 mg QHS PO Last administered on 03/12/17 19: 19; Start 03/06/17 at 21:00 Venlafaxine HCl (Effexor Xr) 75 mg DAILY PO Last administered on 03/12/17 07: 41; Start 03/07/17 at 09:00; Stop 03/12/17 at 12:34; Status DC Insulin Aspart (NovoLOG) TID SQ Last administered on 03/06/17 18:09; Start 03/06/17 at 18:00; Stop 03/06/17 at 22:31; Status DC Dextrose 12.5 gm PRN Q15MIN PRN IV SEE COMMENTS; Start 03/06/17 at 16:30 Glucose (Insta-Glucose) 15 gm PRN Q15MIN PRN PO LOW BLOOD SUGAR; Start at 16:30 Insulin Detemir (Levemir) 36 units HS SQ ; Start 03/06/17 at 21:00; Stop 03/06 at 21:00; Status DC Insulin Detemir (Levemir) 30 units DAILY SQ ; Start 03/07/17 at 09:00; Stop at 09:00; Status DC Insulin Detemir (Levemir) 40 units HS SQ Last administered on 03/06/17 19:44 ; Start 03/06/17 at 21:00; Stop 03/06/17 at 22:31; Status DC Insulin Detemir (Levemir) 40 units DAILY SQ ; Start 03/07/17 at 09:00; Stop at 09:00; Status DC Fluconazole (Diflucan) 100 mg DAILY PO Last administered on 03/12/17 07:42; Start 03/07/17 at 09:00; Stop 03/14/17 at 09:01 Nystatin/ Triamcinolone Acetonide (Mycolog Ii) 1 raquel BID TP Last administered on 03/12/17 19:34; Start 03/06/17 at 21:00 Nystatin (Nystop) 1 raquel PRN BID PRN TP REDNESS Last administered on 03/08/17 19:28; Start 03/06/17 at 17:30 Insulin Aspart (NovoLOG) 5 units TIDAC SQ Last administered on 03/07/17 11:30 ; Start 03/06/17 at 18:00; Stop 03/07/17 at 17:21; Status DC Insulin Aspart (NovoLOG) TIDAC SQ Last administered on 03/12/17 16:30; Start 03/07/17 at 07:30 Insulin Detemir (Levemir) 40 units BID SQ Last administered on 03/12/17 19:35 ; Start 03/07/17 at 09:00 Insulin Aspart (NovoLOG) 10 units TIDAC SQ Last administered on 03/12/17 16:30 ; Start 03/08/17 at 07:30 Lisinopril (Prinivil) 40 mg DAILY PO Last administered on 03/12/17 07:40; Start 03/08/17 at 09:00 Vitamin D (Vitamin D3) 50,000 unit Sa@2000 PO Last administered on 03/07/17 19:33; Start 03/07/17 at 20:00 Quetiapine Fumarate (SEROquel) 25 mg QHS PO Last administered on 03/11/17 19: 40; Start 03/09/17 at 21:00; Stop 03/12/17 at 19:07; Status DC Venlafaxine HCl (Effexor Xr) 112.5 mg DAILY PO ; Start 03/13/17 at 09:00 Quetiapine Fumarate (SEROquel) 50 mg QHS PO Last administered on 03/12/17 19: 33; Start 03/12/17 at 21:00 Active Scripts Active Reported Effexor Xr (Venlafaxine Hcl) 75 Mg Cap.er.24h 75 Mg PO DAILY Lamisil (Terbinafine Hcl) 250 Mg Tablet 1 Raquel PO BID Pravastatin Sodium 40 Mg Tablet 40 Mg PO QHS Klor-Con M20 (Potassium Chloride) 20 Meq Tab.er.prt 20 Meq PO DAILY Metoprolol Tartrate 25 Mg Tablet 25 Mg PO BID Lisinopril 20 Mg Tablet 20 Mg PO DAILY Lantus Solostar (Insulin Glargine,Hum.rec.anlog) 100 Unit/1 Ml Insuln.pen 30 Unit SQ BID Gabapentin 300 Mg Capsule 300 Mg PO QHS Gabapentin 100 Mg Capsule 100 Mg PO BIDACBL Lasix (Furosemide) 40 Mg Tablet 40 Mg PO DAILY Tylenol (Acetaminophen) 325 Mg Tablet 650 Mg PO PRN Q4-6HRS PRN LIZ DIAEN MD Mar 12, 2017 20:34
[2017-03-13 06:06] VITALS: BP 145/68
[2017-03-13] MEDS: INSULIN ASPART 300 UNITS/3 ML INSULN.PEN SQ SCH ×6 (07:30→17:10)
--- NOTE | 2017-03-13 07:51 | PN ---
DATE: 03/11/2017 PSYCHIATRIC PROGRESS NOTE This is a late entry for date of service 03/11/2017, covers the elements not covered in my initial note of 03/11/2017. SUBJECTIVE: The patient was staffed at a treatment team meeting with the entire team morning of 03/11/2017, seen individually evening of 03/11/2017. At the treatment team meeting, the patient's son Mario attended. The patient has been somewhat withdrawn, more social in the evening. Ildefonso discussed how the patient has been preoccupied with going to [place] to a particular lady who was involved in prostitution and has preoccupation with this has been extensive and longstanding. There is no clear history of bipolar disorder. Family history is positive for head injury in a brother, but no specific psychiatric problems other than from the trauma. REVIEW OF SYSTEMS: No CV, , pulmonary, eye, ENT system symptoms on review. Reliability is fair. MENTAL STATUS EXAM: Oriented to himself and situation. Speech is coherent. He talked at length about his visits to [place], was smiling, laughing, stating "I always want to pussy." We discussed socially appropriate conversations and he is agreeable to not making comments to nursing staff. Abstraction fair, computation impaired, language function intact, attention span short. Mood and affect remain somewhat labile at times. LABORATORY DATA: Reviewed. IMPRESSION: Unchanged from initial note. PLAN: We will check with Dr. Wetzel. If there is no clinical contraindication, we will go ahead and add Provera 5 mg a day to help reduce some of his sexual urges, Effexor XR increased to 112.5 mg a day. He takes Seroquel 25 mg p.o. at bedtime, but need to increase this as a mood stabilizer. Review drug interactions, risk/benefit ratio favors no further change. LIZ DIANE MD DR: MATILDA/james JOB#: [id number] / [id number]
[2017-03-13] MEDS: FUROSEMIDE 40 MG TABLET PO SCH (08:17)
[2017-03-13] MEDS: GABAPENTIN 100 MG CAPSULE. PO SCH ×2 (08:17→12:31)
[2017-03-13] MEDS: FLUCONAZOLE 100 MG TABLET. PO SCH (08:18)
[2017-03-13] MEDS: METOPROLOL TART IMMED RELEASE 25 MG TABLET PO SCH ×2 (08:18→19:40)
[2017-03-13] MEDS: LISINOPRIL 20 MG TABLET PO SCH (08:19)
[2017-03-13] MEDS: POTASSIUM CHLORIDE 20 MEQ TABLET.ER. PO SCH (08:19)
[2017-03-13] MEDS: INSULIN DETEMIR 300 UNITS/3 ML INSULN.PEN. SQ SCH ×2 (08:25→19:40)
[2017-03-13] MEDS: VENLAFAXINE XR 37.5 MG CAP.ER.24H. PO SCH (08:31)
[2017-03-13] MEDS: NYSTATIN/TRIAMCIN TOPICAL CREAM 15GM TUBE. TP SCH ×2 (08:31→19:38)
[2017-03-13] MEDS: TERBINAFINE 1% TOPICAL CREAM 30GM TUBE. TP SCH ×2 (08:31→19:38)
[2017-03-13] MEDS: MAGNESIUM HYDROXIDE 2,400 MG/30 ML ORAL.SUSP. PO PRN (08:55)
[2017-03-13 16:02] VITALS: BP 145/81
[2017-03-13] MEDS: GABAPENTIN 300 MG CAPSULE. PO SCH (19:40)
[2017-03-13] MEDS: QUEtiapine 50 MG TABLET. PO SCH (19:40)
[2017-03-13] MEDS: PRAVASTATIN 20 MG TABLET. PO SCH (19:40)
--- NOTE | 2017-03-13 20:48 | PDOC ---
Exam Adriano Demential Exam: Adriano Note: Please also refer to the separate dictated note~for this date of service dictated separately.~Patient seen individually. Discussed the patient with Nursing staff reviewed the chart.~Reviewed interim history and current functioning. Reviewed vital signs,~Labs/ Radiology~and current medications noted below. Continue current treatment with the changes noted in the dictated addendum note Assessment: Vital Signs: Vital Signs Date Time Temp Pulse Resp B/P (MAP) Pulse Ox O2 Delivery O2 Flow Rate FiO2 03/13/17 19:40 60 145/81 03/13/17 16:02 98.0 16 96 03/12/17 16:15 Room Air I&O Intake and Output 03/14/17 07:00 Intake Total 1560 ml Balance 1560 ml Intake Oral 1560 ml Labs: Laboratory Tests Test 03/13/17 07:50 03/13/17 11:09 03/13/17 16:51 03/13/17 18:59 Glucose (Fingerstick) 70 mg/dL (70-99) 112 mg/dL (70-99) H 158 mg/dL (70-99) H 208 mg/dL (70-99) H Current Medications: Meds: Current Medications Multi-Ingredient Ointment (Analgesic [place]) 1 raquel PRN QID PRN TP MUSCLE PAIN; Start 03/06/17 at 16:15 Al Hydroxide/Mg Hydroxide (Mylanta Plus Xs) 15 ml PRN AFTMEALHC PRN PO DYSPEPSIA; Start 03/06/17 at 16:15 Magnesium Hydroxide (Milk Of Magnesia) 2,400 mg PRN QHS PRN PO CONSTIPATION Last administered on 03/13/17 08:55; Start 03/06/17 at 16:15 Acetaminophen (Tylenol) 650 mg PRN Q6HRS PRN PO PAIN / TEMP Last administered on 03/08/17 08:02; Start 03/06/17 at 16:30 Furosemide (Lasix) 40 mg DAILY PO Last administered on 03/13/17 08:17; Start 03/07/17 at 09:00 Gabapentin (Neurontin) 100 mg BIDACBL PO Last administered on 03/13/17 12:31; Start 03/07/17 at 07:30 Gabapentin (Neurontin) 300 mg QHS PO Last administered on 03/13/17 19:40; Start 03/06/17 at 21:00 Lisinopril (Prinivil) 20 mg DAILY PO Last administered on 03/07/17 08:07; Start 03/07/17 at 09:00; Stop 03/07/17 at 18:30; Status DC Metoprolol Tartrate (Lopressor) 25 mg BID PO Last administered on 03/13/17 19: 40; Start 03/06/17 at 21:00 Potassium Chloride (Klor-Con) 20 meq DAILY PO Last administered on 03/13/17 08 :19; Start 03/07/17 at 09:00 Terbinafine HCl (LamISIL) 1 raquel BID TP Last administered on 03/13/17 19:38; Start 03/06/17 at 21:00 Insulin Detemir (Levemir) 30 units BID SQ ; Start 03/06/17 at 21:00; Stop at 21:00; Status DC Pravastatin Sodium (Pravachol) 40 mg QHS PO Last administered on 03/13/17 19: 40; Start 03/06/17 at 21:00 Venlafaxine HCl (Effexor Xr) 75 mg DAILY PO Last administered on 03/12/17 07: 41; Start 03/07/17 at 09:00; Stop 03/12/17 at 12:34; Status DC Insulin Aspart (NovoLOG) TID SQ Last administered on 03/06/17 18:09; Start 03/06/17 at 18:00; Stop 03/06/17 at 22:31; Status DC Dextrose 12.5 gm PRN Q15MIN PRN IV SEE COMMENTS; Start 03/06/17 at 16:30 Glucose (Insta-Glucose) 15 gm PRN Q15MIN PRN PO LOW BLOOD SUGAR; Start at 16:30 Insulin Detemir (Levemir) 36 units HS SQ ; Start 03/06/17 at 21:00; Stop 03/06 at 21:00; Status DC Insulin Detemir (Levemir) 30 units DAILY SQ ; Start 03/07/17 at 09:00; Stop at 09:00; Status DC Insulin Detemir (Levemir) 40 units HS SQ Last administered on 03/06/17 19:44 ; Start 03/06/17 at 21:00; Stop 03/06/17 at 22:31; Status DC Insulin Detemir (Levemir) 40 units DAILY SQ ; Start 03/07/17 at 09:00; Stop at 09:00; Status DC Fluconazole (Diflucan) 100 mg DAILY PO Last administered on 03/13/17 08:18; Start 03/07/17 at 09:00; Stop 03/14/17 at 09:01 Nystatin/ Triamcinolone Acetonide (Mycolog Ii) 1 raquel BID TP Last administered on 03/13/17 19:38; Start 03/06/17 at 21:00 Nystatin (Nystop) 1 raquel PRN BID PRN TP REDNESS Last administered on 03/08/17 19:28; Start 03/06/17 at 17:30 Insulin Aspart (NovoLOG) 5 units TIDAC SQ Last administered on 03/07/17 11:30 ; Start 03/06/17 at 18:00; Stop 03/07/17 at 17:21; Status DC Insulin Aspart (NovoLOG) TIDAC SQ Last administered on 03/13/17 17:06; Start 03/07/17 at 07:30 Insulin Detemir (Levemir) 40 units BID SQ Last administered on 03/13/17 19:40 ; Start 03/07/17 at 09:00 Insulin Aspart (NovoLOG) 10 units TIDAC SQ Last administered on 03/13/17 17:10 ; Start 03/08/17 at 07:30 Lisinopril (Prinivil) 40 mg DAILY PO Last administered on 03/13/17 08:19; Start 03/08/17 at 09:00 Vitamin D (Vitamin D3) 50,000 unit Sa@2000 PO Last administered on 03/07/17 19:33; Start 03/07/17 at 20:00 Quetiapine Fumarate (SEROquel) 25 mg QHS PO Last administered on 03/11/17 19: 40; Start 03/09/17 at 21:00; Stop 03/12/17 at 19:07; Status DC Venlafaxine HCl (Effexor Xr) 112.5 mg DAILY PO Last administered on 03/13/17 08:31; Start 03/13/17 at 09:00 Quetiapine Fumarate (SEROquel) 50 mg QHS PO Last administered on 03/13/17t 19: 40; Start 03/12/17 at 21:00 Medroxyprogesterone Acetate (Provera) 5 mg DAILY PO ; Start 03/14/17 at 09:00 Active Scripts Active Reported Effexor Xr (Venlafaxine Hcl) 75 Mg Cap.er.24h 75 Mg PO DAILY Lamisil (Terbinafine Hcl) 250 Mg Tablet 1 Raquel PO BID Pravastatin Sodium 40 Mg Tablet 40 Mg PO QHS Klor-Con M20 (Potassium Chloride) 20 Meq Tab.er.prt 20 Meq PO DAILY Metoprolol Tartrate 25 Mg Tablet 25 Mg PO BID Lisinopril 20 Mg Tablet 20 Mg PO DAILY Lantus Solostar (Insulin Glargine,Hum.rec.anlog) 100 Unit/1 Ml Insuln.pen 30 Unit SQ BID Gabapentin 300 Mg Capsule 300 Mg PO QHS Gabapentin 100 Mg Capsule 100 Mg PO BIDACBL Lasix (Furosemide) 40 Mg Tablet 40 Mg PO DAILY Tylenol (Acetaminophen) 325 Mg Tablet 650 Mg PO PRN Q4-6HRS PRN LIZ DIANE MD Mar 13, 2017 20:48
--- NOTE | 2017-03-14 05:15 | PN ---
DATE: 03/12/2017 Covers the elements not covered in my initial note of 03/12/2017. SUBJECTIVE: Met with the patient the evening of 03/12/2017. The patient slept 7-1/4 hours previous evening. Per nursing report, he has been sexually inappropriate at times with female nursing staff, especially during shower time. He was winking at staff, making lewd gestures and I processed this with him at some length individually. Insight is limited. No CV, , pulmonary, eye, ENT system symptoms on review. MENTAL STATUS EXAM: Oriented to himself and situation. Speech coherent, abstraction fair, computation impaired, language function intact, attention span short. Mood and affect remain somewhat labile. No active suicidal or homicidal ideation. LABORATORY DATA: Reviewed. IMPRESSION: Unchanged from initial note. PLAN: Increase Seroquel to 50 mg p.o. at bedtime if Dr. Wetzel approves. We will also start Provera 5 mg a day for helping with the sexual disinhibition, maintain Effexor XR 112.5 mg a day. Reviewed drug interactions. Risk/benefit ratio favors no further change. MAN Newton DIANE MD DR: MATILDA/james JOB#: [id number] / [id number]
[2017-03-14 05:54] VITALS: BP 148/66
[2017-03-14] MEDS: INSULIN ASPART 300 UNITS/3 ML INSULN.PEN SQ SCH ×6 (07:30→16:30)
[2017-03-14] MEDS: INSULIN DETEMIR 300 UNITS/3 ML INSULN.PEN. SQ SCH ×2 (07:49→19:31)
[2017-03-14] MEDS: VENLAFAXINE XR 37.5 MG CAP.ER.24H. PO SCH (07:53)
[2017-03-14] MEDS: METOPROLOL TART IMMED RELEASE 25 MG TABLET PO SCH ×2 (07:53→19:30)
[2017-03-14] MEDS: GABAPENTIN 100 MG CAPSULE. PO SCH ×2 (07:53→14:20)
[2017-03-14] MEDS: POTASSIUM CHLORIDE 20 MEQ TABLET.ER. PO SCH (07:53)
[2017-03-14] MEDS: FLUCONAZOLE 100 MG TABLET. PO SCH (07:53)
[2017-03-14] MEDS: LISINOPRIL 20 MG TABLET PO SCH (07:53)
[2017-03-14] MEDS: FUROSEMIDE 40 MG TABLET PO SCH (07:53)
[2017-03-14] MEDS: medroxyPROGESTERone 5 MG TABLET PO SCH (07:55)
[2017-03-14] MEDS: TERBINAFINE 1% TOPICAL CREAM 30GM TUBE. TP SCH ×2 (07:56→19:30)
[2017-03-14] MEDS: NYSTATIN/TRIAMCIN TOPICAL CREAM 15GM TUBE. TP SCH ×2 (07:56→19:30)
[2017-03-14 16:07] VITALS: BP 140/76
[2017-03-14] MEDS: CHOLECALCIFEROL (VITAMIN D3) 50,000 UNIT CAPSULE PO SCH (19:30)
[2017-03-14] MEDS: QUEtiapine 50 MG TABLET. PO SCH (19:30)
[2017-03-14] MEDS: PRAVASTATIN 20 MG TABLET. PO SCH (19:30)
[2017-03-14] MEDS: GABAPENTIN 300 MG CAPSULE. PO SCH (19:30)
--- NOTE | 2017-03-14 21:32 | PN ---
DATE: 03/13/2017 PSYCHIATRIC PROGRESS NOTE This is a late entry for 03/13/2017, covers the elements not covered in my initial note of 03/13/2017. SUBJECTIVE: I met with the patient evening 03/13/2017. The patient is compliant with his medications, slept 7-1/2 hours. No sexual behaviors noted, but he was quite demanding with nursing staff the morning of 03/13/2017. He has not had a shower today, so it is difficult to assess the sexually inappropriate behaviors ____ last time he was having showers. He has been started on Provera as approved by Dr. Wetzel from a medical standpoint. REVIEW OF SYSTEMS: No CV, , pulmonary, eye, ENT system symptoms on review. MENTAL STATUS EXAM: Oriented to himself, situation, place. Speech coherent, abstraction fair, computation is somewhat impaired. Language function intact. Attention span short. Mood and affect, lability persists, but it is improved. LABORATORY DATA: Reviewed. IMPRESSION: Unchanged from initial note. PLAN: Continue current psychotropics mentioned in my initial. Reviewed drug interactions, risk/benefit ratio favors no further change. MAN Newton DIANE MD DR: MATILDA/james JOB#: [id number] / [id number]
--- NOTE | 2017-03-14 23:40 | PDOC ---
Exam Adriano Demential Exam: Adriano Note: Please also refer to the separate dictated note~for this date of service dictated separately.~Patient seen individually. Discussed the patient with Nursing staff reviewed the chart.~Reviewed interim history and current functioning. Reviewed vital signs,~Labs/ Radiology~and current medications noted below. Continue current treatment with the changes noted in the dictated addendum note Assessment: Vital Signs: Vital Signs Date Time Temp Pulse Resp B/P (MAP) Pulse Ox O2 Delivery O2 Flow Rate FiO2 03/14/17 19:30 66 140/76 03/14/17 16:07 98.0 18 92 03/12/17 16:15 Room Air I&O Intake and Output 03/15/17 07:00 Intake Total 1440 ml Balance 1440 ml Intake Oral 1440 ml Labs: Laboratory Tests Test 03/14/17 07:59 03/14/17 13:02 03/14/17 17:30 03/14/17 19:07 Glucose (Fingerstick) 81 mg/dL (70-99) 212 mg/dL (70-99) H 188 mg/dL (70-99) H 215 mg/dL (70-99) H Current Medications: Meds: Current Medications Multi-Ingredient Ointment (Analgesic [place]) 1 raquel PRN QID PRN TP MUSCLE PAIN; Start 03/06/17 at 16:15 Al Hydroxide/Mg Hydroxide (Mylanta Plus Xs) 15 ml PRN AFTMEALHC PRN PO DYSPEPSIA; Start 03/06/17 at 16:15 Magnesium Hydroxide (Milk Of Magnesia) 2,400 mg PRN QHS PRN PO CONSTIPATION Last administered on 03/13/17 08:55; Start 03/06/17 at 16:15 Acetaminophen (Tylenol) 650 mg PRN Q6HRS PRN PO PAIN / TEMP Last administered on 03/08/17 08:02; Start 03/06/17 at 16:30 Furosemide (Lasix) 40 mg DAILY PO Last administered on 03/14/17 07:53; Start 03/07/17 at 09:00 Gabapentin (Neurontin) 100 mg BIDACBL PO Last administered on 03/14/17 14:20; Start 03/07/17 at 07:30 Gabapentin (Neurontin) 300 mg QHS PO Last administered on 03/14/17 19:30; Start 03/06/17 at 21:00 Lisinopril (Prinivil) 20 mg DAILY PO Last administered on 03/07/17 08:07; Start 03/07/17 at 09:00; Stop 03/07/17 at 18:30; Status DC Metoprolol Tartrate (Lopressor) 25 mg BID PO Last administered on 03/14/17 19: 30; Start 03/06/17 at 21:00 Potassium Chloride (Klor-Con) 20 meq DAILY PO Last administered on 03/14/17 07 :53; Start 03/07/17 at 09:00 Terbinafine HCl (LamISIL) 1 raquel BID TP Last administered on 03/14/17 19:30; Start 03/06/17 at 21:00 Insulin Detemir (Levemir) 30 units BID SQ ; Start 03/06/17 at 21:00; Stop at 21:00; Status DC Pravastatin Sodium (Pravachol) 40 mg QHS PO Last administered on 03/14/17 19: 30; Start 03/06/17 at 21:00 Venlafaxine HCl (Effexor Xr) 75 mg DAILY PO Last administered on 03/12/17 07: 41; Start 03/07/17 at 09:00; Stop 03/12/17 at 12:34; Status DC Insulin Aspart (NovoLOG) TID SQ Last administered on 03/06/17 18:09; Start 03/06/17 at 18:00; Stop 03/06/17 at 22:31; Status DC Dextrose 12.5 gm PRN Q15MIN PRN IV SEE COMMENTS; Start 03/06/17 at 16:30 Glucose (Insta-Glucose) 15 gm PRN Q15MIN PRN PO LOW BLOOD SUGAR; Start at 16:30 Insulin Detemir (Levemir) 36 units HS SQ ; Start 03/06/17 at 21:00; Stop 03/06 at 21:00; Status DC Insulin Detemir (Levemir) 30 units DAILY SQ ; Start 03/07/17 at 09:00; Stop at 09:00; Status DC Insulin Detemir (Levemir) 40 units HS SQ Last administered on 03/06/17 19:44 ; Start 03/06/17 at 21:00; Stop 03/06/17 at 22:31; Status DC Insulin Detemir (Levemir) 40 units DAILY SQ ; Start 03/07/17 at 09:00; Stop at 09:00; Status DC Fluconazole (Diflucan) 100 mg DAILY PO Last administered on 03/14/17 07:53; Start 03/07/17 at 09:00; Stop 03/14/17 at 09:01; Status DC Nystatin/ Triamcinolone Acetonide (Mycolog Ii) 1 raquel BID TP Last administered on 03/14/17 19:30; Start 03/06/17 at 21:00 Nystatin (Nystop) 1 raquel PRN BID PRN TP REDNESS Last administered on 03/08/17 19:28; Start 03/06/17 at 17:30 Insulin Aspart (NovoLOG) 5 units TIDAC SQ Last administered on 03/07/17 11:30 ; Start 03/06/17 at 18:00; Stop 03/07/17 at 17:21; Status DC Insulin Aspart (NovoLOG) TIDAC SQ Last administered on 03/14/17 16:30; Start 03/07/17 at 07:30 Insulin Detemir (Levemir) 40 units BID SQ Last administered on 03/14/17 19:31 ; Start 03/07/17 at 09:00 Insulin Aspart (NovoLOG) 10 units TIDAC SQ Last administered on 03/14/17 16:30 ; Start 03/08/17 at 07:30 Lisinopril (Prinivil) 40 mg DAILY PO Last administered on 03/14/17 07:53; Start 03/08/17 at 09:00 Vitamin D (Vitamin D3) 50,000 unit Sa@2000 PO Last administered on 03/14/17 19 :30; Start 03/07/17 at 20:00 Quetiapine Fumarate (SEROquel) 25 mg QHS PO Last administered on 03/11/17 19: 40; Start 03/09/17 at 21:00; Stop 03/12/17 at 19:07; Status DC Venlafaxine HCl (Effexor Xr) 112.5 mg DAILY PO Last administered on 03/14/17 07:53; Start 03/13/17 at 09:00 Quetiapine Fumarate (SEROquel) 50 mg QHS PO Last administered on 03/14/17 19: 30; Start 03/12/17 at 21:00 Medroxyprogesterone Acetate (Provera) 5 mg DAILY PO Last administered on 07:55; Start 03/14/17 at 09:00 Active Scripts Active Reported Effexor Xr (Venlafaxine Hcl) 75 Mg Cap.er.24h 75 Mg PO DAILY Lamisil (Terbinafine Hcl) 250 Mg Tablet 1 Raquel PO BID Pravastatin Sodium 40 Mg Tablet 40 Mg PO QHS Klor-Con M20 (Potassium Chloride) 20 Meq Tab.er.prt 20 Meq PO DAILY Metoprolol Tartrate 25 Mg Tablet 25 Mg PO BID Lisinopril 20 Mg Tablet 20 Mg PO DAILY Lantus Solostar (Insulin Glargine,Hum.rec.anlog) 100 Unit/1 Ml Insuln.pen 30 Unit SQ BID Gabapentin 300 Mg Capsule 300 Mg PO QHS Gabapentin 100 Mg Capsule 100 Mg PO BIDACBL Lasix (Furosemide) 40 Mg Tablet 40 Mg PO DAILY Tylenol (Acetaminophen) 325 Mg Tablet 650 Mg PO PRN Q4-6HRS PRN LIZ DIANE MD Mar 14, 2017 23:40
[2017-03-15 06:07] VITALS: BP 173/73
[2017-03-15] MEDS: GABAPENTIN 100 MG CAPSULE. PO SCH ×2 (06:25→12:40)
[2017-03-15] MEDS: FUROSEMIDE 40 MG TABLET PO SCH (06:25)
[2017-03-15] MEDS: POTASSIUM CHLORIDE 20 MEQ TABLET.ER. PO SCH (06:25)
[2017-03-15] MEDS: medroxyPROGESTERone 5 MG TABLET PO SCH (06:25)
[2017-03-15] MEDS: VENLAFAXINE XR 37.5 MG CAP.ER.24H. PO SCH (06:25)
[2017-03-15] MEDS: LISINOPRIL 20 MG TABLET PO SCH (06:26)
[2017-03-15] MEDS: NYSTATIN/TRIAMCIN TOPICAL CREAM 15GM TUBE. TP SCH ×2 (06:27→19:30)
[2017-03-15] MEDS: TERBINAFINE 1% TOPICAL CREAM 30GM TUBE. TP SCH ×2 (06:27→19:30)
[2017-03-15] MEDS: METOPROLOL TART IMMED RELEASE 25 MG TABLET PO SCH ×2 (06:27→19:31)
[2017-03-15] MEDS: INSULIN ASPART 300 UNITS/3 ML INSULN.PEN SQ SCH ×6 (07:30→17:24)
[2017-03-15] MEDS: INSULIN DETEMIR 300 UNITS/3 ML INSULN.PEN. SQ SCH ×2 (09:04→19:31)
[2017-03-15 16:29] VITALS: BP 147/79
[2017-03-15] MEDS: PRENATAL MULTIVITAMIN TABLET. PO SCH (17:00)
--- NOTE | 2017-03-15 17:56 | PDOC ---
Exam Adriano Demential Exam: Adriano Note: Please also refer to the separate dictated note~for this date of service dictated separately.~Patient seen individually. Discussed the patient with Nursing staff reviewed the chart.~Reviewed interim history and current functioning. Reviewed vital signs,~Labs/ Radiology~and current medications noted below. Continue current treatment with the changes noted in the dictated addendum note Assessment: Vital Signs: Vital Signs Date Time Temp Pulse Resp B/P (MAP) Pulse Ox O2 Delivery O2 Flow Rate FiO2 03/15/17 16:29 98.2 73 20 147/79 (101) 95 03/12/17 16:15 Room Air I&O Intake and Output 03/16/17 07:00 Intake Total 1080 ml Balance 1080 ml Intake Oral 1080 ml Labs: Laboratory Tests Test 03/14/17 19:07 03/15/17 07:21 03/15/17 11:55 03/15/17 17:21 Glucose (Fingerstick) 215 mg/dL (70-99) H 97 mg/dL (70-99) 218 mg/dL (70-99) H 218 mg/dL (70-99) H Current Medications: Meds: Current Medications Multi-Ingredient Ointment (Analgesic [place]) 1 raquel PRN QID PRN TP MUSCLE PAIN; Start 03/06/17 at 16:15 Al Hydroxide/Mg Hydroxide (Mylanta Plus Xs) 15 ml PRN AFTMEALHC PRN PO DYSPEPSIA; Start 03/06/17 at 16:15 Magnesium Hydroxide (Milk Of Magnesia) 2,400 mg PRN QHS PRN PO CONSTIPATION Last administered on 03/13/17 08:55; Start 03/06/17 at 16:15 Acetaminophen (Tylenol) 650 mg PRN Q6HRS PRN PO PAIN / TEMP Last administered on 03/08/17 08:02; Start 03/06/17 at 16:30 Furosemide (Lasix) 40 mg DAILY PO Last administered on 03/15/17 06:25; Start 03/07/17 at 09:00 Gabapentin (Neurontin) 100 mg BIDACBL PO Last administered on 03/15/17 12:40; Start 03/07/17 at 07:30 Gabapentin (Neurontin) 300 mg QHS PO Last administered on 03/14/17 19:30; Start 03/06/17 at 21:00 Lisinopril (Prinivil) 20 mg DAILY PO Last administered on 03/07/17 08:07; Start 03/07/17 at 09:00; Stop 03/07/17 at 18:30; Status DC Metoprolol Tartrate (Lopressor) 25 mg BID PO Last administered on 03/15/17 06: 27; Start 03/06/17 at 21:00 Potassium Chloride (Klor-Con) 20 meq DAILY PO Last administered on 03/15/17 06 :25; Start 03/07/17 at 09:00 Terbinafine HCl (LamISIL) 1 raquel BID TP Last administered on 03/15/17 06:27; Start 03/06/17 at 21:00 Insulin Detemir (Levemir) 30 units BID SQ ; Start 03/06/17 at 21:00; Stop at 21:00; Status DC Pravastatin Sodium (Pravachol) 40 mg QHS PO Last administered on 03/14/17 19: 30; Start 03/06/17 at 21:00 Venlafaxine HCl (Effexor Xr) 75 mg DAILY PO Last administered on 03/12/17 07: 41; Start 03/07/17 at 09:00; Stop 03/12/17 at 12:34; Status DC Insulin Aspart (NovoLOG) TID SQ Last administered on 03/06/17 18:09; Start 03/06/17 at 18:00; Stop 03/06/17 at 22:31; Status DC Dextrose 12.5 gm PRN Q15MIN PRN IV SEE COMMENTS; Start 03/06/17 at 16:30 Glucose (Insta-Glucose) 15 gm PRN Q15MIN PRN PO LOW BLOOD SUGAR; Start at 16:30 Insulin Detemir (Levemir) 36 units HS SQ ; Start 03/06/17 at 21:00; Stop 03/06 at 21:00; Status DC Insulin Detemir (Levemir) 30 units DAILY SQ ; Start 03/07/17 at 09:00; Stop at 09:00; Status DC Insulin Detemir (Levemir) 40 units HS SQ Last administered on 03/06/17 19:44 ; Start 03/06/17 at 21:00; Stop 03/06/17 at 22:31; Status DC Insulin Detemir (Levemir) 40 units DAILY SQ ; Start 03/07/17 at 09:00; Stop at 09:00; Status DC Fluconazole (Diflucan) 100 mg DAILY PO Last administered on 03/14/17 07:53; Start 03/07/17 at 09:00; Stop 03/14/17 at 09:01; Status DC Nystatin/ Triamcinolone Acetonide (Mycolog Ii) 1 raquel BID TP Last administered on 03/15/17 06:27; Start 03/06/17 at 21:00 Nystatin (Nystop) 1 raquel PRN BID PRN TP REDNESS Last administered on 03/08/17 19:28; Start 03/06/17 at 17:30 Insulin Aspart (NovoLOG) 5 units TIDAC SQ Last administered on 03/07/17 11:30 ; Start 03/06/17 at 18:00; Stop 03/07/17 at 17:21; Status DC Insulin Aspart (NovoLOG) TIDAC SQ Last administered on 03/15/17 17:24; Start 03/07/17 at 07:30 Insulin Detemir (Levemir) 40 units BID SQ Last administered on 03/15/17 09:04 ; Start 03/07/17 at 09:00 Insulin Aspart (NovoLOG) 10 units TIDAC SQ Last administered on 03/15/17 12:05 ; Start 03/08/17 at 07:30; Stop 03/15/17 at 15:19; Status DC Lisinopril (Prinivil) 40 mg DAILY PO Last administered on 03/15/17 06:26; Start 03/08/17 at 09:00 Vitamin D (Vitamin D3) 50,000 unit Sa@2000 PO Last administered on 03/14/17 19 :30; Start 03/07/17 at 20:00 Quetiapine Fumarate (SEROquel) 25 mg QHS PO Last administered on 03/11/17 19: 40; Start 03/09/17 at 21:00; Stop 03/12/17 at 19:07; Status DC Venlafaxine HCl (Effexor Xr) 112.5 mg DAILY PO Last administered on 03/15/17 06:25; Start 03/13/17 at 09:00 Quetiapine Fumarate (SEROquel) 50 mg QHS PO Last administered on 03/14/17 19: 30; Start 03/12/17 at 21:00 Medroxyprogesterone Acetate (Provera) 5 mg DAILY PO Last administered on 06:25; Start 03/14/17 at 09:00 Prenat Multivit/ [place]/Iron/Folic Ac (Multivitamin ) 1 tab DAILYBFRSUP PO Last administered on 03/15/17 17:00; Start 03/15/17 at 17:00 Insulin Aspart (NovoLOG) 15 units TIDAC SQ Last administered on 03/15/17 17:23 ; Start 03/15/17 at 16:30 Active Scripts Active Reported Effexor Xr (Venlafaxine Hcl) 75 Mg Cap.er.24h 75 Mg PO DAILY Lamisil (Terbinafine Hcl) 250 Mg Tablet 1 Raquel PO BID Pravastatin Sodium 40 Mg Tablet 40 Mg PO QHS Klor-Con M20 (Potassium Chloride) 20 Meq Tab.er.prt 20 Meq PO DAILY Metoprolol Tartrate 25 Mg Tablet 25 Mg PO BID Lisinopril 20 Mg Tablet 20 Mg PO DAILY Lantus Solostar (Insulin Glargine,Hum.rec.anlog) 100 Unit/1 Ml Insuln.pen 30 Unit SQ BID Gabapentin 300 Mg Capsule 300 Mg PO QHS Gabapentin 100 Mg Capsule 100 Mg PO BIDACBL Lasix (Furosemide) 40 Mg Tablet 40 Mg PO DAILY Tylenol (Acetaminophen) 325 Mg Tablet 650 Mg PO PRN Q4-6HRS PRN Diagnosis: Problems: (1) Bipolar affective disorder, mixed (2) Anxiety disorder (3) Dementia, vascular, with delusions (4) Impulse control disorder LIZ DIANE MD Mar 15, 2017 17:56
[2017-03-15] MEDS: GABAPENTIN 300 MG CAPSULE. PO SCH (19:31)
[2017-03-15] MEDS: PRAVASTATIN 20 MG TABLET. PO SCH (19:31)
[2017-03-15] MEDS: QUEtiapine 50 MG TABLET. PO SCH (19:31)
--- NOTE | 2017-03-15 19:55 | PDOC ---
Exam Adriano Demential Exam: Adriano Note: Please also refer to the separate dictated note~for this date of service dictated separately.~Patient seen individually. Discussed the patient with Nursing staff reviewed the chart.~Reviewed interim history and current functioning. Reviewed vital signs,~Labs/ Radiology~and current medications noted below. Continue current treatment with the changes noted in the dictated addendum note Assessment: Vital Signs: Vital Signs Date Time Temp Pulse Resp B/P (MAP) Pulse Ox O2 Delivery O2 Flow Rate FiO2 03/15/17 19:31 73 147/79 03/15/17 16:29 98.2 20 95 03/12/17 16:15 Room Air I&O Intake and Output 03/16/17 07:00 Intake Total 1680 ml Balance 1680 ml Intake Oral 1680 ml Labs: Laboratory Tests Test 03/15/17 07:21 03/15/17 11:55 03/15/17 17:21 03/15/17 18:59 Glucose (Fingerstick) 97 mg/dL (70-99) 218 mg/dL (70-99) H 218 mg/dL (70-99) H 299 mg/dL (70-99) H Current Medications: Meds: Current Medications Multi-Ingredient Ointment (Analgesic [place]) 1 raquel PRN QID PRN TP MUSCLE PAIN; Start 03/06/17 at 16:15 Al Hydroxide/Mg Hydroxide (Mylanta Plus Xs) 15 ml PRN AFTMEALHC PRN PO DYSPEPSIA; Start 03/06/17 at 16:15 Magnesium Hydroxide (Milk Of Magnesia) 2,400 mg PRN QHS PRN PO CONSTIPATION Last administered on 03/13/17 08:55; Start 03/06/17 at 16:15 Acetaminophen (Tylenol) 650 mg PRN Q6HRS PRN PO PAIN / TEMP Last administered on 03/08/17 08:02; Start 03/06/17 at 16:30 Furosemide (Lasix) 40 mg DAILY PO Last administered on 03/15/17 06:25; Start 03/07/17 at 09:00 Gabapentin (Neurontin) 100 mg BIDACBL PO Last administered on 03/15/17 12:40; Start 03/07/17 at 07:30 Gabapentin (Neurontin) 300 mg QHS PO Last administered on 03/15/17 19:31; Start 03/06/17 at 21:00 Lisinopril (Prinivil) 20 mg DAILY PO Last administered on 03/07/17 08:07; Start 03/07/17 at 09:00; Stop 03/07/17 at 18:30; Status DC Metoprolol Tartrate (Lopressor) 25 mg BID PO Last administered on 03/15/17 19: 31; Start 03/06/17 at 21:00 Potassium Chloride (Klor-Con) 20 meq DAILY PO Last administered on 03/15/17 06 :25; Start 03/07/17 at 09:00 Terbinafine HCl (LamISIL) 1 raquel BID TP Last administered on 03/15/17 19:30; Start 03/06/17 at 21:00 Insulin Detemir (Levemir) 30 units BID SQ ; Start 03/06/17 at 21:00; Stop at 21:00; Status DC Pravastatin Sodium (Pravachol) 40 mg QHS PO Last administered on 03/15/17 19: 31; Start 03/06/17 at 21:00 Venlafaxine HCl (Effexor Xr) 75 mg DAILY PO Last administered on 03/12/17 07: 41; Start 03/07/17 at 09:00; Stop 03/12/17 at 12:34; Status DC Insulin Aspart (NovoLOG) TID SQ Last administered on 03/06/17 18:09; Start 03/06/17 at 18:00; Stop 03/06/17 at 22:31; Status DC Dextrose 12.5 gm PRN Q15MIN PRN IV SEE COMMENTS; Start 03/06/17 at 16:30 Glucose (Insta-Glucose) 15 gm PRN Q15MIN PRN PO LOW BLOOD SUGAR; Start at 16:30 Insulin Detemir (Levemir) 36 units HS SQ ; Start 03/06/17 at 21:00; Stop 03/06 at 21:00; Status DC Insulin Detemir (Levemir) 30 units DAILY SQ ; Start 03/07/17 at 09:00; Stop at 09:00; Status DC Insulin Detemir (Levemir) 40 units HS SQ Last administered on 03/06/17 19:44 ; Start 03/06/17 at 21:00; Stop 03/06/17 at 22:31; Status DC Insulin Detemir (Levemir) 40 units DAILY SQ ; Start 03/07/17 at 09:00; Stop at 09:00; Status DC Fluconazole (Diflucan) 100 mg DAILY PO Last administered on 03/14/17 07:53; Start 03/07/17 at 09:00; Stop 03/14/17 at 09:01; Status DC Nystatin/ Triamcinolone Acetonide (Mycolog Ii) 1 raquel BID TP Last administered on 03/15/17 19:30; Start 03/06/17 at 21:00 Nystatin (Nystop) 1 raquel PRN BID PRN TP REDNESS Last administered on 03/08/17 19:28; Start 03/06/17 at 17:30 Insulin Aspart (NovoLOG) 5 units TIDAC SQ Last administered on 03/07/17 11:30 ; Start 03/06/17 at 18:00; Stop 03/07/17 at 17:21; Status DC Insulin Aspart (NovoLOG) TIDAC SQ Last administered on 03/15/17 17:24; Start 03/07/17 at 07:30 Insulin Detemir (Levemir) 40 units BID SQ Last administered on 03/15/17 19:31 ; Start 03/07/17 at 09:00 Insulin Aspart (NovoLOG) 10 units TIDAC SQ Last administered on 03/15/17 12:05 ; Start 03/08/17 at 07:30; Stop 03/15/17 at 15:19; Status DC Lisinopril (Prinivil) 40 mg DAILY PO Last administered on 03/15/17 06:26; Start 03/08/17 at 09:00 Vitamin D (Vitamin D3) 50,000 unit Sa@2000 PO Last administered on 03/14/17 19 :30; Start 03/07/17 at 20:00 Quetiapine Fumarate (SEROquel) 25 mg QHS PO Last administered on 03/11/17 19: 40; Start 03/09/17 at 21:00; Stop 03/12/17 at 19:07; Status DC Venlafaxine HCl (Effexor Xr) 112.5 mg DAILY PO Last administered on 03/15/17 06:25; Start 03/13/17 at 09:00 Quetiapine Fumarate (SEROquel) 50 mg QHS PO Last administered on 03/15/17 19: 31; Start 03/12/17 at 21:00 Medroxyprogesterone Acetate (Provera) 5 mg DAILY PO Last administered on 06:25; Start 03/14/17 at 09:00 Prenat Multivit/ [place]/Iron/Folic Ac (Multivitamin ) 1 tab DAILYBFRSUP PO Last administered on 03/15/17 17:00; Start 03/15/17 at 17:00 Insulin Aspart (NovoLOG) 15 units TIDAC SQ Last administered on 03/15/17 17:23 ; Start 03/15/17 at 16:30 Active Scripts Active Reported Effexor Xr (Venlafaxine Hcl) 75 Mg Cap.er.24h 75 Mg PO DAILY Lamisil (Terbinafine Hcl) 250 Mg Tablet 1 Raquel PO BID Pravastatin Sodium 40 Mg Tablet 40 Mg PO QHS Klor-Con M20 (Potassium Chloride) 20 Meq Tab.er.prt 20 Meq PO DAILY Metoprolol Tartrate 25 Mg Tablet 25 Mg PO BID Lisinopril 20 Mg Tablet 20 Mg PO DAILY Lantus Solostar (Insulin Glargine,Hum.rec.anlog) 100 Unit/1 Ml Insuln.pen 30 Unit SQ BID Gabapentin 300 Mg Capsule 300 Mg PO QHS Gabapentin 100 Mg Capsule 100 Mg PO BIDACBL Lasix (Furosemide) 40 Mg Tablet 40 Mg PO DAILY Tylenol (Acetaminophen) 325 Mg Tablet 650 Mg PO PRN Q4-6HRS PRN Diagnosis: Problems: (1) Anxiety disorder (2) Impulse control disorder (3) Bipolar affective disorder, mixed (4) Dementia, vascular, with delusions LIZ DIANE MD Mar 15, 2017 19:55
[2017-03-16 06:17] VITALS: BP 130/84
[2017-03-16] MEDS: INSULIN ASPART 300 UNITS/3 ML INSULN.PEN SQ SCH ×6 (09:18→18:10)
[2017-03-16] MEDS: medroxyPROGESTERone 5 MG TABLET PO SCH (09:22)
[2017-03-16] MEDS: INSULIN DETEMIR 300 UNITS/3 ML INSULN.PEN. SQ SCH ×2 (09:22→19:50)
[2017-03-16] MEDS: METOPROLOL TART IMMED RELEASE 25 MG TABLET PO SCH ×2 (09:23→19:18)
[2017-03-16] MEDS: LISINOPRIL 20 MG TABLET PO SCH (09:23)
[2017-03-16] MEDS: POTASSIUM CHLORIDE 20 MEQ TABLET.ER. PO SCH (09:23)
[2017-03-16] MEDS: VENLAFAXINE XR 37.5 MG CAP.ER.24H. PO SCH (09:23)
--- NOTE | 2017-03-16 09:23 | PN ---
DATE: 03/14/2017 This is a late entry, covers the elements not covered in my initial note of 03/14/2017. I met with the patient the evening of 03/14/2016. SUBJECTIVE: The patient has not been sexually inappropriate, not making lewd comments and I processed this with him. He slept 6-3/4 hours the previous evening. No CV, , pulmonary, eye, ENT system symptoms on review. MENTAL STATUS EXAM: Oriented to himself and situation. Speech coherent, abstraction fair, computation impaired, language function intact. Mood and affect showing improvement and improved lability. LABORATORY DATA: Reviewed. IMPRESSION: Unchanged from initial note. PLAN: Continue current psychotropics including Provera 5 mg a day. Review drug interactions, risk/benefit ratio favors no further change. MAN Newton DIANE MD DR: MATILDA/james JOB#: [id number] / [id number]
[2017-03-16] MEDS: GABAPENTIN 100 MG CAPSULE. PO SCH ×2 (09:24→12:42)
[2017-03-16] MEDS: FUROSEMIDE 40 MG TABLET PO SCH (09:24)
[2017-03-16] MEDS: NYSTATIN/TRIAMCIN TOPICAL CREAM 15GM TUBE. TP SCH ×2 (09:25→19:19)
[2017-03-16] MEDS: TERBINAFINE 1% TOPICAL CREAM 30GM TUBE. TP SCH ×2 (09:25→19:19)
[2017-03-16 15:59] VITALS: BP 142/68
[2017-03-16] MEDS: PRENATAL MULTIVITAMIN TABLET. PO SCH (18:07)
[2017-03-16] MEDS: PRAVASTATIN 20 MG TABLET. PO SCH (19:18)
[2017-03-16] MEDS: GABAPENTIN 300 MG CAPSULE. PO SCH (19:18)
[2017-03-16] MEDS: QUEtiapine 50 MG TABLET. PO SCH (19:19)
--- NOTE | 2017-03-16 19:42 | PDOC ---
Exam Adriano Demential Exam: Adriano Note: Please also refer to the separate dictated note~for this date of service dictated separately.~Patient seen individually. Discussed the patient with Nursing staff reviewed the chart.~Reviewed interim history and current functioning. Reviewed vital signs,~Labs/ Radiology~and current medications noted below. Continue current treatment with the changes noted in the dictated addendum note Assessment: Vital Signs: Vital Signs Date Time Temp Pulse Resp B/P (MAP) Pulse Ox O2 Delivery O2 Flow Rate FiO2 03/16/17 19:18 63 142/68 03/16/17 15:59 97.9 18 95 03/12/17 16:15 Room Air I&O Intake and Output 03/17/17 07:00 Intake Total 1080 ml Balance 1080 ml Intake Oral 1080 ml Labs: Laboratory Tests Test 03/16/17 07:10 03/16/17 11:16 03/16/17 16:20 03/16/17 19:19 Glucose (Fingerstick) 60 mg/dL (70-99) L 157 mg/dL (70-99) H 169 mg/dL (70-99) H 191 mg/dL (70-99) H Current Medications: Meds: Current Medications Multi-Ingredient Ointment (Analgesic [place]) 1 raquel PRN QID PRN TP MUSCLE PAIN; Start 03/06/17 at 16:15 Al Hydroxide/Mg Hydroxide (Mylanta Plus Xs) 15 ml PRN AFTMEALHC PRN PO DYSPEPSIA; Start 03/06/17 at 16:15 Magnesium Hydroxide (Milk Of Magnesia) 2,400 mg PRN QHS PRN PO CONSTIPATION Last administered on 03/13/17 08:55; Start 03/06/17 at 16:15 Acetaminophen (Tylenol) 650 mg PRN Q6HRS PRN PO PAIN / TEMP Last administered on 03/08/17 08:02; Start 03/06/17 at 16:30 Furosemide (Lasix) 40 mg DAILY PO Last administered on 03/16/17 09:24; Start 03/07/17 at 09:00 Gabapentin (Neurontin) 100 mg BIDACBL PO Last administered on 03/16/17 12:42; Start 03/07/17 at 07:30 Gabapentin (Neurontin) 300 mg QHS PO Last administered on 03/16/17 19:18; Start 03/06/17 at 21:00 Lisinopril (Prinivil) 20 mg DAILY PO Last administered on 03/07/17 08:07; Start 03/07/17 at 09:00; Stop 03/07/17 at 18:30; Status DC Metoprolol Tartrate (Lopressor) 25 mg BID PO Last administered on 03/16/17 19: 18; Start 03/06/17 at 21:00 Potassium Chloride (Klor-Con) 20 meq DAILY PO Last administered on 03/16/17 09 :23; Start 03/07/17 at 09:00 Terbinafine HCl (LamISIL) 1 raquel BID TP Last administered on 03/16/17 19:19; Start 03/06/17 at 21:00 Insulin Detemir (Levemir) 30 units BID SQ ; Start 03/06/17 at 21:00; Stop at 21:00; Status DC Pravastatin Sodium (Pravachol) 40 mg QHS PO Last administered on 03/16/17 19: 18; Start 03/06/17 at 21:00 Venlafaxine HCl (Effexor Xr) 75 mg DAILY PO Last administered on 03/12/17 07: 41; Start 03/07/17 at 09:00; Stop 03/12/17 at 12:34; Status DC Insulin Aspart (NovoLOG) TID SQ Last administered on 03/06/17 18:09; Start 03/06/17 at 18:00; Stop 03/06/17 at 22:31; Status DC Dextrose 12.5 gm PRN Q15MIN PRN IV SEE COMMENTS; Start 03/06/17 at 16:30 Glucose (Insta-Glucose) 15 gm PRN Q15MIN PRN PO LOW BLOOD SUGAR; Start at 16:30 Insulin Detemir (Levemir) 36 units HS SQ ; Start 03/06/17 at 21:00; Stop 03/06 at 21:00; Status DC Insulin Detemir (Levemir) 30 units DAILY SQ ; Start 03/07/17 at 09:00; Stop at 09:00; Status DC Insulin Detemir (Levemir) 40 units HS SQ Last administered on 03/06/17 19:44 ; Start 03/06/17 at 21:00; Stop 03/06/17 at 22:31; Status DC Insulin Detemir (Levemir) 40 units DAILY SQ ; Start 03/07/17 at 09:00; Stop at 09:00; Status DC Fluconazole (Diflucan) 100 mg DAILY PO Last administered on 03/14/17 07:53; Start 03/07/17 at 09:00; Stop 03/14/17 at 09:01; Status DC Nystatin/ Triamcinolone Acetonide (Mycolog Ii) 1 raquel BID TP Last administered on 03/16/17 19:19; Start 03/06/17 at 21:00 Nystatin (Nystop) 1 raquel PRN BID PRN TP REDNESS Last administered on 03/08/17 19:28; Start 03/06/17 at 17:30 Insulin Aspart (NovoLOG) 5 units TIDAC SQ Last administered on 03/07/17 11:30 ; Start 03/06/17 at 18:00; Stop 03/07/17 at 17:21; Status DC Insulin Aspart (NovoLOG) TIDAC SQ Last administered on 03/16/17 18:09; Start 03/07/17 at 07:30 Insulin Detemir (Levemir) 40 units BID SQ Last administered on 03/16/17 09:22 ; Start 03/07/17 at 09:00 Insulin Aspart (NovoLOG) 10 units TIDAC SQ Last administered on 03/15/17 12:05 ; Start 03/08/17 at 07:30; Stop 03/15/17 at 15:19; Status DC Lisinopril (Prinivil) 40 mg DAILY PO Last administered on 03/16/17 09:23; Start 03/08/17 at 09:00 Vitamin D (Vitamin D3) 50,000 unit Sa@2000 PO Last administered on 03/14/17 19 :30; Start 03/07/17 at 20:00 Quetiapine Fumarate (SEROquel) 25 mg QHS PO Last administered on 03/11/17 19: 40; Start 03/09/17 at 21:00; Stop 03/12/17 at 19:07; Status DC Venlafaxine HCl (Effexor Xr) 112.5 mg DAILY PO Last administered on 03/16/17 09:23; Start 03/13/17 at 09:00 Quetiapine Fumarate (SEROquel) 50 mg QHS PO Last administered on 03/16/17 19: 19; Start 03/12/17 at 21:00 Medroxyprogesterone Acetate (Provera) 5 mg DAILY PO Last administered on 09:22; Start 03/14/17 at 09:00 Prenat Multivit/ [place]/Iron/Folic Ac (Multivitamin ) 1 tab DAILYBFRSUP PO Last administered on 03/16/17 18:07; Start 03/15/17 at 17:00 Insulin Aspart (NovoLOG) 15 units TIDAC SQ Last administered on 03/16/17 18:10 ; Start 03/15/17 at 16:30 Active Scripts Active Reported Effexor Xr (Venlafaxine Hcl) 75 Mg Cap.er.24h 75 Mg PO DAILY Lamisil (Terbinafine Hcl) 250 Mg Tablet 1 Raquel PO BID Pravastatin Sodium 40 Mg Tablet 40 Mg PO QHS Klor-Con M20 (Potassium Chloride) 20 Meq Tab.er.prt 20 Meq PO DAILY Metoprolol Tartrate 25 Mg Tablet 25 Mg PO BID Lisinopril 20 Mg Tablet 20 Mg PO DAILY Lantus Solostar (Insulin Glargine,Hum.rec.anlog) 100 Unit/1 Ml Insuln.pen 30 Unit SQ BID Gabapentin 300 Mg Capsule 300 Mg PO QHS Gabapentin 100 Mg Capsule 100 Mg PO BIDACBL Lasix (Furosemide) 40 Mg Tablet 40 Mg PO DAILY Tylenol (Acetaminophen) 325 Mg Tablet 650 Mg PO PRN Q4-6HRS PRN Diagnosis: Problems: (1) Anxiety disorder (2) Impulse control disorder (3) Bipolar affective disorder, mixed (4) Dementia, vascular, with delusions LIZ DIANE MD Mar 16, 2017 19:42
--- NOTE | 2017-03-17 00:49 | PN ---
DATE: 03/15/2017 This late entry 03/15/2017 covers elements not covered in my initial note of 03/15/2017. I met with the patient in the evening of 03/15/2017. Blood sugars have been stable. No sexually inappropriate behaviors noted and he states he is restraining himself. He is otherwise pleasant, somewhat forgetful. No CV, , pulmonary, eye, ENT system symptoms on review. Reliability varies. MENTAL STATUS EXAM: Oriented to himself and situation. Speech is coherent, abstraction fair, computation impaired, language function intact. Mood and affect, improved lability. LABORATORY DATA: Reviewed. IMPRESSION: Unchanged from initial note. PLAN: Continue current psychotropics Provera, Seroquel, Effexor XR. Reviewed drug interactions. Risk/benefit ratio favors no further change. MAN Newton DIANE MD DR: MATILDA/james JOB#: [id number] / [id number]
[2017-03-17 06:35] VITALS: BP 179/93
[2017-03-17] MEDS: TERBINAFINE 1% TOPICAL CREAM 30GM TUBE. TP SCH ×2 (08:41→21:22)
[2017-03-17] MEDS: NYSTATIN/TRIAMCIN TOPICAL CREAM 15GM TUBE. TP SCH ×2 (08:41→21:22)
[2017-03-17] MEDS: POTASSIUM CHLORIDE 20 MEQ TABLET.ER. PO SCH (08:41)
[2017-03-17] MEDS: medroxyPROGESTERone 5 MG TABLET PO SCH (08:42)
[2017-03-17] MEDS: GABAPENTIN 100 MG CAPSULE. PO SCH ×2 (08:42→12:00)
[2017-03-17] MEDS: VENLAFAXINE XR 37.5 MG CAP.ER.24H. PO SCH (08:42)
[2017-03-17] MEDS: LISINOPRIL 20 MG TABLET PO SCH (08:42)
[2017-03-17] MEDS: METOPROLOL TART IMMED RELEASE 25 MG TABLET PO SCH ×2 (08:42→20:11)
[2017-03-17] MEDS: FUROSEMIDE 40 MG TABLET PO SCH (08:42)
[2017-03-17] MEDS: INSULIN ASPART 300 UNITS/3 ML INSULN.PEN SQ SCH ×6 (08:44→17:36)
[2017-03-17] MEDS: INSULIN DETEMIR 300 UNITS/3 ML INSULN.PEN. SQ SCH ×2 (08:46→20:14)
[2017-03-17 16:29] VITALS: BP 141/68
[2017-03-17] MEDS: PRENATAL MULTIVITAMIN TABLET. PO SCH (17:31)
[2017-03-17] MEDS: PRAVASTATIN 20 MG TABLET. PO SCH (20:11)
[2017-03-17] MEDS: QUEtiapine 50 MG TABLET. PO SCH (20:11)
[2017-03-17] MEDS: GABAPENTIN 300 MG CAPSULE. PO SCH (20:11)
[2017-03-17] MEDS: MAGNESIUM HYDROXIDE 2,400 MG/30 ML ORAL.SUSP. PO PRN (20:23)
--- NOTE | 2017-03-17 21:40 | PDOC ---
Exam Adriano Demential Exam: Adriano Note: Please also refer to the separate dictated note~for this date of service dictated separately.~Patient seen individually. Discussed the patient with Nursing staff reviewed the chart.~Reviewed interim history and current functioning. Reviewed vital signs,~Labs/ Radiology~and current medications noted below. Continue current treatment with the changes noted in the dictated addendum note Assessment: Vital Signs: Vital Signs Date Time Temp Pulse Resp B/P (MAP) Pulse Ox O2 Delivery O2 Flow Rate FiO2 03/17/17 20:11 60 141/68 03/17/17 16:29 98.2 16 97 03/12/17 16:15 Room Air I&O Intake and Output 03/18/17 07:00 Intake Total 1200 ml Balance 1200 ml Intake Oral 1200 ml Labs: Laboratory Tests Test 03/17/17 07:13 03/17/17 11:38 03/17/17 16:45 03/17/17 19:03 Glucose (Fingerstick) 108 mg/dL (70-99) H 218 mg/dL (70-99) H 163 mg/dL (70-99) H 204 mg/dL (70-99) H Current Medications: Meds: Current Medications Multi-Ingredient Ointment (Analgesic [place]) 1 raquel PRN QID PRN TP MUSCLE PAIN; Start 03/06/17 at 16:15 Al Hydroxide/Mg Hydroxide (Mylanta Plus Xs) 15 ml PRN AFTMEALHC PRN PO DYSPEPSIA; Start 03/06/17 at 16:15 Magnesium Hydroxide (Milk Of Magnesia) 2,400 mg PRN QHS PRN PO CONSTIPATION Last administered on 03/17/17 20:23; Start 03/06/17 at 16:15 Acetaminophen (Tylenol) 650 mg PRN Q6HRS PRN PO PAIN / TEMP Last administered on 03/08/17 08:02; Start 03/06/17 at 16:30 Furosemide (Lasix) 40 mg DAILY PO Last administered on 03/17/17 08:42; Start 03/07/17 at 09:00 Gabapentin (Neurontin) 100 mg BIDACBL PO Last administered on 03/17/17 12:00; Start 03/07/17 at 07:30 Gabapentin (Neurontin) 300 mg QHS PO Last administered on 03/17/17 20:11; Start 03/06/17 at 21:00 Lisinopril (Prinivil) 20 mg DAILY PO Last administered on 03/07/17 08:07; Start 03/07/17 at 09:00; Stop 03/07/17 at 18:30; Status DC Metoprolol Tartrate (Lopressor) 25 mg BID PO Last administered on 03/17/17 20: 11; Start 03/06/17 at 21:00 Potassium Chloride (Klor-Con) 20 meq DAILY PO Last administered on 03/17/17 08 :41; Start 03/07/17 at 09:00 Terbinafine HCl (LamISIL) 1 raquel BID TP Last administered on 03/17/17 21:22; Start 03/06/17 at 21:00 Insulin Detemir (Levemir) 30 units BID SQ ; Start 03/06/17 at 21:00; Stop at 21:00; Status DC Pravastatin Sodium (Pravachol) 40 mg QHS PO Last administered on 03/17/17 20: 11; Start 03/06/17 at 21:00 Venlafaxine HCl (Effexor Xr) 75 mg DAILY PO Last administered on 03/12/17 07: 41; Start 03/07/17 at 09:00; Stop 03/12/17 at 12:34; Status DC Insulin Aspart (NovoLOG) TID SQ Last administered on 03/06/17 18:09; Start 03/06/17 at 18:00; Stop 03/06/17 at 22:31; Status DC Dextrose 12.5 gm PRN Q15MIN PRN IV SEE COMMENTS; Start 03/06/17 at 16:30 Glucose (Insta-Glucose) 15 gm PRN Q15MIN PRN PO LOW BLOOD SUGAR; Start at 16:30 Insulin Detemir (Levemir) 36 units HS SQ ; Start 03/06/17 at 21:00; Stop 03/06 at 21:00; Status DC Insulin Detemir (Levemir) 30 units DAILY SQ ; Start 03/07/17 at 09:00; Stop at 09:00; Status DC Insulin Detemir (Levemir) 40 units HS SQ Last administered on 03/06/17 19:44 ; Start 03/06/17 at 21:00; Stop 03/06/17 at 22:31; Status DC Insulin Detemir (Levemir) 40 units DAILY SQ ; Start 03/07/17 at 09:00; Stop at 09:00; Status DC Fluconazole (Diflucan) 100 mg DAILY PO Last administered on 03/14/17 07:53; Start 03/07/17 at 09:00; Stop 03/14/17 at 09:01; Status DC Nystatin/ Triamcinolone Acetonide (Mycolog Ii) 1 raquel BID TP Last administered on 03/17/17 21:22; Start 03/06/17 at 21:00 Nystatin (Nystop) 1 raquel PRN BID PRN TP REDNESS Last administered on 03/08/17 19:28; Start 03/06/17 at 17:30 Insulin Aspart (NovoLOG) 5 units TIDAC SQ Last administered on 03/07/17 11:30 ; Start 03/06/17 at 18:00; Stop 03/07/17 at 17:21; Status DC Insulin Aspart (NovoLOG) TIDAC SQ Last administered on 03/17/17 17:36; Start 03/07/17 at 07:30 Insulin Detemir (Levemir) 40 units BID SQ Last administered on 03/17/17 20:14 ; Start 03/07/17 at 09:00 Insulin Aspart (NovoLOG) 10 units TIDAC SQ Last administered on 03/15/17 12:05 ; Start 03/08/17 at 07:30; Stop 03/15/17 at 15:19; Status DC Lisinopril (Prinivil) 40 mg DAILY PO Last administered on 03/17/17 08:42; Start 03/08/17 at 09:00 Vitamin D (Vitamin D3) 50,000 unit Sa@2000 PO Last administered on 03/14/17 19 :30; Start 03/07/17 at 20:00 Quetiapine Fumarate (SEROquel) 25 mg QHS PO Last administered on 03/11/17 19: 40; Start 03/09/17 at 21:00; Stop 03/12/17 at 19:07; Status DC Venlafaxine HCl (Effexor Xr) 112.5 mg DAILY PO Last administered on 03/17/17 08:42; Start 03/13/17 at 09:00 Quetiapine Fumarate (SEROquel) 50 mg QHS PO Last administered on 03/17/17 20: 11; Start 03/12/17 at 21:00 Medroxyprogesterone Acetate (Provera) 5 mg DAILY PO Last administered on 08:42; Start 03/14/17 at 09:00 Prenat Multivit/ [place]/Iron/Folic Ac (Multivitamin ) 1 tab DAILYBFRSUP PO Last administered on 03/17/17 17:31; Start 03/15/17 at 17:00 Insulin Aspart (NovoLOG) 15 units TIDAC SQ Last administered on 03/17/17 16:30 ; Start 03/15/17 at 16:30 Active Scripts Active Reported Effexor Xr (Venlafaxine Hcl) 75 Mg Cap.er.24h 75 Mg PO DAILY Lamisil (Terbinafine Hcl) 250 Mg Tablet 1 Raquel PO BID Pravastatin Sodium 40 Mg Tablet 40 Mg PO QHS Klor-Con M20 (Potassium Chloride) 20 Meq Tab.er.prt 20 Meq PO DAILY Metoprolol Tartrate 25 Mg Tablet 25 Mg PO BID Lisinopril 20 Mg Tablet 20 Mg PO DAILY Lantus Solostar (Insulin Glargine,Hum.rec.anlog) 100 Unit/1 Ml Insuln.pen 30 Unit SQ BID Gabapentin 300 Mg Capsule 300 Mg PO QHS Gabapentin 100 Mg Capsule 100 Mg PO BIDACBL Lasix (Furosemide) 40 Mg Tablet 40 Mg PO DAILY Tylenol (Acetaminophen) 325 Mg Tablet 650 Mg PO PRN Q4-6HRS PRN Diagnosis: Problems: (1) Anxiety disorder (2) Impulse control disorder (3) Bipolar affective disorder, mixed (4) Dementia, vascular, with delusions LIZ DIANE MD Mar 17, 2017 21:40
[2017-03-18 06:08] VITALS: BP 130/69
[2017-03-18] MEDS: INSULIN ASPART 300 UNITS/3 ML INSULN.PEN SQ SCH ×6 (07:30→17:24)
--- NOTE | 2017-03-18 07:55 | PN ---
DATE: 03/16/2017 This late entry 03/16/2017 covers elements not covered in my initial note of 03/16/2017. SUBJECTIVE: I met with the patient in the evening of 03/16/2017. Overall, the patient has been somewhat withdrawn to his room, complains of feeling cold, but he has not had any sexually inappropriate comments or behaviors and I processed this with him individually. REVIEW OF SYSTEMS: No CV, , pulmonary, eye, ENT system symptoms on review. MENTAL STATUS EXAM: Oriented to himself and situation. Speech is coherent, has some latency. Abstraction fair, computation impaired, language function intact. Short-term memory is impaired. No suicidal or homicidal ideation. LABORATORY DATA: Reviewed. IMPRESSION: Unchanged from initial note. PLAN: Continue current psychotropics, reviewed drug interactions, risk and benefit ratio favors no further change. MAN Newton DIANE MD DR: MATILDA/james JOB#: [id number] / [id number]
[2017-03-18] MEDS: NYSTATIN/TRIAMCIN TOPICAL CREAM 15GM TUBE. TP SCH ×2 (08:43→20:09)
[2017-03-18] MEDS: VENLAFAXINE XR 37.5 MG CAP.ER.24H. PO SCH (08:43)
[2017-03-18] MEDS: LISINOPRIL 20 MG TABLET PO SCH (08:43)
[2017-03-18] MEDS: TERBINAFINE 1% TOPICAL CREAM 30GM TUBE. TP SCH ×2 (08:43→20:08)
[2017-03-18] MEDS: POTASSIUM CHLORIDE 20 MEQ TABLET.ER. PO SCH (08:44)
[2017-03-18] MEDS: medroxyPROGESTERone 5 MG TABLET PO SCH (08:44)
[2017-03-18] MEDS: METOPROLOL TART IMMED RELEASE 25 MG TABLET PO SCH ×2 (08:44→20:06)
[2017-03-18] MEDS: GABAPENTIN 100 MG CAPSULE. PO SCH ×2 (08:44→12:38)
[2017-03-18] MEDS: FUROSEMIDE 40 MG TABLET PO SCH (08:44)
[2017-03-18] MEDS: INSULIN DETEMIR 300 UNITS/3 ML INSULN.PEN. SQ SCH ×2 (08:46→20:08)
[2017-03-18] MEDS: PRENATAL MULTIVITAMIN TABLET. PO SCH (12:38)
[2017-03-18 16:29] VITALS: BP 160/84
[2017-03-18] MEDS: GABAPENTIN 300 MG CAPSULE. PO SCH (20:06)
[2017-03-18] MEDS: PRAVASTATIN 20 MG TABLET. PO SCH (20:06)
[2017-03-18] MEDS: QUEtiapine 50 MG TABLET. PO SCH (20:07)
--- NOTE | 2017-03-18 21:40 | PDOC ---
Exam Adriano Demential Exam: Adriano Note: Please also refer to the separate dictated note~for this date of service dictated separately.~Patient seen individually. Discussed the patient with Nursing staff reviewed the chart.~Reviewed interim history and current functioning. Reviewed vital signs,~Labs/ Radiology~and current medications noted below. Continue current treatment with the changes noted in the dictated addendum note Assessment: Vital Signs: Vital Signs Date Time Temp Pulse Resp B/P (MAP) Pulse Ox O2 Delivery O2 Flow Rate FiO2 03/18/17 20:06 67 160/84 03/18/17 16:29 97.7 18 96 Room Air I&O Intake and Output 03/19/17 07:00 Intake Total 1520 ml Balance 1520 ml Intake Oral 1520 ml # Bowel Movements 1 Labs: Laboratory Tests Test 03/18/17 07:10 03/18/17 11:37 03/18/17 16:55 03/18/17 19:04 Glucose (Fingerstick) 90 mg/dL (70-99) 137 mg/dL (70-99) H 230 mg/dL (70-99) H 281 mg/dL (70-99) H Current Medications: Meds: Current Medications Multi-Ingredient Ointment (Analgesic [place]) 1 raquel PRN QID PRN TP MUSCLE PAIN; Start 03/06/17 at 16:15 Al Hydroxide/Mg Hydroxide (Mylanta Plus Xs) 15 ml PRN AFTMEALHC PRN PO DYSPEPSIA; Start 03/06/17 at 16:15 Magnesium Hydroxide (Milk Of Magnesia) 2,400 mg PRN QHS PRN PO CONSTIPATION Last administered on 03/17/17 20:23; Start 03/06/17 at 16:15 Acetaminophen (Tylenol) 650 mg PRN Q6HRS PRN PO PAIN / TEMP Last administered on 03/08/17 08:02; Start 03/06/17 at 16:30 Furosemide (Lasix) 40 mg DAILY PO Last administered on 03/18/17 08:44; Start 03/07/17 at 09:00 Gabapentin (Neurontin) 100 mg BIDACBL PO Last administered on 03/18/17 12:38; Start 03/07/17 at 07:30 Gabapentin (Neurontin) 300 mg QHS PO Last administered on 03/18/17 20:06; Start 03/06/17 at 21:00 Lisinopril (Prinivil) 20 mg DAILY PO Last administered on 03/07/17 08:07; Start 03/07/17 at 09:00; Stop 03/07/17 at 18:30; Status DC Metoprolol Tartrate (Lopressor) 25 mg BID PO Last administered on 03/18/17 20: 06; Start 03/06/17 at 21:00 Potassium Chloride (Klor-Con) 20 meq DAILY PO Last administered on 03/18/17 08 :44; Start 03/07/17 at 09:00 Terbinafine HCl (LamISIL) 1 raquel BID TP Last administered on 03/18/17 20:08; Start 03/06/17 at 21:00 Insulin Detemir (Levemir) 30 units BID SQ ; Start 03/06/17 at 21:00; Stop at 21:00; Status DC Pravastatin Sodium (Pravachol) 40 mg QHS PO Last administered on 03/18/17 20: 06; Start 03/06/17 at 21:00 Venlafaxine HCl (Effexor Xr) 75 mg DAILY PO Last administered on 03/12/17 07: 41; Start 03/07/17 at 09:00; Stop 03/12/17 at 12:34; Status DC Insulin Aspart (NovoLOG) TID SQ Last administered on 03/06/17 18:09; Start 03/06/17 at 18:00; Stop 03/06/17 at 22:31; Status DC Dextrose 12.5 gm PRN Q15MIN PRN IV SEE COMMENTS; Start 03/06/17 at 16:30 Glucose (Insta-Glucose) 15 gm PRN Q15MIN PRN PO LOW BLOOD SUGAR; Start at 16:30 Insulin Detemir (Levemir) 36 units HS SQ ; Start 03/06/17 at 21:00; Stop 03/06 at 21:00; Status DC Insulin Detemir (Levemir) 30 units DAILY SQ ; Start 03/07/17 at 09:00; Stop at 09:00; Status DC Insulin Detemir (Levemir) 40 units HS SQ Last administered on 03/06/17 19:44 ; Start 03/06/17 at 21:00; Stop 03/06/17 at 22:31; Status DC Insulin Detemir (Levemir) 40 units DAILY SQ ; Start 03/07/17 at 09:00; Stop at 09:00; Status DC Fluconazole (Diflucan) 100 mg DAILY PO Last administered on 03/14/17 07:53; Start 03/07/17 at 09:00; Stop 03/14/17 at 09:01; Status DC Nystatin/ Triamcinolone Acetonide (Mycolog Ii) 1 raquel BID TP Last administered on 03/18/17 20:09; Start 03/06/17 at 21:00 Nystatin (Nystop) 1 raquel PRN BID PRN TP REDNESS Last administered on 03/08/17 19:28; Start 03/06/17 at 17:30 Insulin Aspart (NovoLOG) 5 units TIDAC SQ Last administered on 03/07/17 11:30 ; Start 03/06/17 at 18:00; Stop 03/07/17 at 17:21; Status DC Insulin Aspart (NovoLOG) TIDAC SQ Last administered on 03/18/17 17:24; Start 03/07/17 at 07:30 Insulin Detemir (Levemir) 40 units BID SQ Last administered on 03/18/17 20:08 ; Start 03/07/17 at 09:00 Insulin Aspart (NovoLOG) 10 units TIDAC SQ Last administered on 03/15/17 12:05 ; Start 03/08/17 at 07:30; Stop 03/15/17 at 15:19; Status DC Lisinopril (Prinivil) 40 mg DAILY PO Last administered on 03/18/17 08:43; Start 03/08/17 at 09:00 Vitamin D (Vitamin D3) 50,000 unit Sa@2000 PO Last administered on 03/14/17 19 :30; Start 03/07/17 at 20:00 Quetiapine Fumarate (SEROquel) 25 mg QHS PO Last administered on 03/11/17 19: 40; Start 03/09/17 at 21:00; Stop 03/12/17 at 19:07; Status DC Venlafaxine HCl (Effexor Xr) 112.5 mg DAILY PO Last administered on 03/18/17 08:43; Start 03/13/17 at 09:00 Quetiapine Fumarate (SEROquel) 50 mg QHS PO Last administered on 03/18/17 20: 07; Start 03/12/17 at 21:00 Medroxyprogesterone Acetate (Provera) 5 mg DAILY PO Last administered on 08:44; Start 03/14/17 at 09:00 Prenat Multivit/ [employer]/Iron/Folic Ac (Multivitamin ) 1 tab DAILYBFRSUP PO Last administered on 03/18/17 12:38; Start 03/15/17 at 17:00 Insulin Aspart (NovoLOG) 15 units TIDAC SQ Last administered on 03/18/17 17:24 ; Start 03/15/17 at 16:30 Active Scripts Active Reported Effexor Xr (Venlafaxine Hcl) 75 Mg Cap.er.24h 75 Mg PO DAILY Lamisil (Terbinafine Hcl) 250 Mg Tablet 1 Raquel PO BID Pravastatin Sodium 40 Mg Tablet 40 Mg PO QHS Klor-Con M20 (Potassium Chloride) 20 Meq Tab.er.prt 20 Meq PO DAILY Metoprolol Tartrate 25 Mg Tablet 25 Mg PO BID Lisinopril 20 Mg Tablet 20 Mg PO DAILY Lantus Solostar (Insulin Glargine,Hum.rec.anlog) 100 Unit/1 Ml Insuln.pen 30 Unit SQ BID Gabapentin 300 Mg Capsule 300 Mg PO QHS Gabapentin 100 Mg Capsule 100 Mg PO BIDACBL Lasix (Furosemide) 40 Mg Tablet 40 Mg PO DAILY Tylenol (Acetaminophen) 325 Mg Tablet 650 Mg PO PRN Q4-6HRS PRN Diagnosis: Problems: (1) Anxiety disorder (2) Impulse control disorder (3) Bipolar affective disorder, mixed (4) Dementia, vascular, with delusions LIZ DIANE MD Mar 18, 2017 21:40
--- NOTE | 2017-03-18 23:26 | PN ---
DATE: 03/17/2017 PSYCHIATRIC PROGRESS NOTE This is a late entry for 03/17/2017, covers elements not covered in my initial note of 03/17/2017. SUBJECTIVE: I met with the patient the evening of 03/17/2017. The patient is less withdrawn and coming out for groups and activities. No sexually inappropriate aggressive behaviors noted and I addressed this with him again individually. REVIEW OF SYSTEMS: No CV, , pulmonary, eye, ENT system symptoms on review. Ambulates independently. MENTAL STATUS EXAM: Oriented to himself and situation. Speech has some latency, coherent. Abstraction fair, computation impaired, language function intact, attention span short. Mood and affect, lability is improved. LABORATORY DATA: Reviewed. IMPRESSION: Unchanged from initial note. PLAN: Continue current psychotropics. Reviewed drug interactions. Risk/benefit ratio favors no further change. May need to increase Provera if sexually inappropriate behaviors resurface. MAN Newton DIANE MD DR: MATILDA/james JOB#: [id number] / [id number]
[2017-03-19 06:37] VITALS: BP 146/88
[2017-03-19 06:59] LABS: BASO % 1 % (0-3); EOS # 0.2 x10^3/uL (0.0-0.7); EOS % 3 % (0-3); HEMATOCRIT 42.6 % (39.0-53.0); HEMOGLOBIN 14.3 g/dL (13.0-17.5); LYMPH # 1.4 x10^3/uL (1.0-4.8); LYMPH % 23 % (24-48); MEAN CORPUSCULAR HEMOGLOBIN 30 pg (25-35); MEAN CORPUSCULAR HGB CONC 34 g/dL (31-37); MEAN CORPUSCULAR VOLUME 89 fL (79-100); MONO # 0.4 x10^3/uL (0.0-1.1); MONO % 7 % (0-9); NEUT # 4.1 x10^3uL (1.8-7.7); NEUT % 67 % (31-73); PLATELET COUNT 131 x10^3/uL (140-400); RED BLOOD COUNT 4.81 x10^6/uL (4.30-5.70); RED CELL DISTRIBUTION WIDTH 14.9 % (11.5-14.5); WHITE BLOOD COUNT 6.1 x10^3/uL (4.0-11.0)
[2017-03-19 07:15] LABS: ALBUMIN 2.9 g/dL (3.4-5.0); ALBUMIN/GLOBULIN RATIO 0.8 (1.0-1.7); CALCIUM 8.3 mg/dL (8.5-10.1); CREATININE 0.8 mg/dL (0.7-1.3); POTASSIUM 3.9 mmol/L (3.5-5.1); TOTAL BILIRUBIN 0.3 mg/dL (0.2-1.0); TOTAL PROTEIN 6.6 g/dL (6.4-8.2)
[2017-03-19] MEDS: INSULIN ASPART 300 UNITS/3 ML INSULN.PEN SQ SCH ×6 (07:30→17:49)
[2017-03-19] MEDS: medroxyPROGESTERone 5 MG TABLET PO SCH (08:11)
[2017-03-19] MEDS: FUROSEMIDE 40 MG TABLET PO SCH (08:12)
[2017-03-19] MEDS: LISINOPRIL 20 MG TABLET PO SCH (08:12)
[2017-03-19] MEDS: POTASSIUM CHLORIDE 20 MEQ TABLET.ER. PO SCH (08:12)
[2017-03-19] MEDS: GABAPENTIN 100 MG CAPSULE. PO SCH ×2 (08:12→12:35)
[2017-03-19] MEDS: VENLAFAXINE XR 37.5 MG CAP.ER.24H. PO SCH (08:13)
[2017-03-19] MEDS: METOPROLOL TART IMMED RELEASE 25 MG TABLET PO SCH ×2 (08:13→20:25)
[2017-03-19] MEDS: NYSTATIN/TRIAMCIN TOPICAL CREAM 15GM TUBE. TP SCH ×2 (08:14→20:26)
[2017-03-19] MEDS: TERBINAFINE 1% TOPICAL CREAM 30GM TUBE. TP SCH ×2 (08:14→20:26)
[2017-03-19] MEDS: INSULIN DETEMIR 300 UNITS/3 ML INSULN.PEN. SQ SCH ×2 (08:17→20:27)
[2017-03-19 15:13] VITALS: BP 174/78
[2017-03-19] MEDS: PRENATAL MULTIVITAMIN TABLET. PO SCH (17:47)
[2017-03-19] MEDS: PRAVASTATIN 20 MG TABLET. PO SCH (20:25)
[2017-03-19] MEDS: QUEtiapine 50 MG TABLET. PO SCH (20:25)
[2017-03-19] MEDS: GABAPENTIN 300 MG CAPSULE. PO SCH (20:26)
[2017-03-20 06:05] VITALS: BP 138/82
[2017-03-20] MEDS: INSULIN ASPART 300 UNITS/3 ML INSULN.PEN SQ SCH ×6 (07:30→17:49)
[2017-03-20] MEDS: TERBINAFINE 1% TOPICAL CREAM 30GM TUBE. TP SCH ×2 (08:55→19:42)
[2017-03-20] MEDS: NYSTATIN/TRIAMCIN TOPICAL CREAM 15GM TUBE. TP SCH ×2 (08:55→19:42)
[2017-03-20] MEDS: GABAPENTIN 100 MG CAPSULE. PO SCH ×2 (08:56→13:22)
[2017-03-20] MEDS: VENLAFAXINE XR 37.5 MG CAP.ER.24H. PO SCH (08:56)
[2017-03-20] MEDS: POTASSIUM CHLORIDE 20 MEQ TABLET.ER. PO SCH (08:56)
[2017-03-20] MEDS: LISINOPRIL 20 MG TABLET PO SCH (08:56)
[2017-03-20] MEDS: FUROSEMIDE 40 MG TABLET PO SCH (08:56)
[2017-03-20] MEDS: METOPROLOL TART IMMED RELEASE 25 MG TABLET PO SCH ×2 (08:57→19:36)
[2017-03-20] MEDS: INSULIN DETEMIR 300 UNITS/3 ML INSULN.PEN. SQ SCH ×2 (09:03→19:48)
[2017-03-20] MEDS: medroxyPROGESTERone 5 MG TABLET PO SCH (09:04)
[2017-03-20 16:31] VITALS: BP 144/73
[2017-03-20] MEDS: PRENATAL MULTIVITAMIN TABLET. PO SCH (17:48)
[2017-03-20] MEDS: GABAPENTIN 300 MG CAPSULE. PO SCH (19:36)
[2017-03-20] MEDS: PRAVASTATIN 20 MG TABLET. PO SCH (19:37)
[2017-03-20] MEDS: QUEtiapine 50 MG TABLET. PO SCH (19:37)
--- NOTE | 2017-03-20 20:05 | PDOC ---
Exam Note: Adriano Note: Please also refer to the separate dictated note~for this date of service dictated separately.~Patient seen individually. Discussed the patient with Nursing staff reviewed the chart.~Reviewed interim history and current functioning. Reviewed vital signs,~Labs/ Radiology~and current medications noted below. Continue current treatment with the changes noted in the dictated addendum note Assessment: Vital Signs: Vital Signs Date Time Temp Pulse Resp B/P (MAP) Pulse Ox O2 Delivery O2 Flow Rate FiO2 03/20/17 19:36 67 144/73 03/20/17 16:31 98.4 20 97 03/19/17 15:13 Room Air I&O Intake and Output 03/21/17 07:00 Intake Total 1320 ml Balance 1320 ml Intake Oral 1320 ml Labs: Laboratory Tests Test 03/20/17 07:05 03/20/17 11:25 03/20/17 17:07 03/20/17 19:09 Glucose (Fingerstick) 83 mg/dL (70-99) 140 mg/dL (70-99) H 171 mg/dL (70-99) H 317 mg/dL (70-99) H Current Medications: Meds: Current Medications Multi-Ingredient Ointment (Analgesic [place]) 1 raquel PRN QID PRN TP MUSCLE PAIN; Start 03/06/17 at 16:15 Al Hydroxide/Mg Hydroxide (Mylanta Plus Xs) 15 ml PRN AFTMEALHC PRN PO DYSPEPSIA; Start 03/06/17 at 16:15 Magnesium Hydroxide (Milk Of Magnesia) 2,400 mg PRN QHS PRN PO CONSTIPATION Last administered on 03/17/17 20:23; Start 03/06/17 at 16:15 Acetaminophen (Tylenol) 650 mg PRN Q6HRS PRN PO PAIN / TEMP Last administered on 03/08/17 08:02; Start 03/06/17 at 16:30 Furosemide (Lasix) 40 mg DAILY PO Last administered on 03/20/17 08:56; Start 03/07/17 at 09:00 Gabapentin (Neurontin) 100 mg BIDACBL PO Last administered on 03/20/17 13:22 ; Start 03/07/17 at 07:30 Gabapentin (Neurontin) 300 mg QHS PO Last administered on 03/20/17 19:36; Start 03/06/17 at 21:00 Lisinopril (Prinivil) 20 mg DAILY PO Last administered on 03/07/17 08:07; Start 03/07/17 at 09:00; Stop 03/07/17 at 18:30; Status DC Metoprolol Tartrate (Lopressor) 25 mg BID PO Last administered on 03/20/17 19 :36; Start 03/06/17 at 21:00 Potassium Chloride (Klor-Con) 20 meq DAILY PO Last administered on 03/20/17 08:56; Start 03/07/17 at 09:00 Terbinafine HCl (LamISIL) 1 raquel BID TP Last administered on 03/20/17 19:42; Start 03/06/17 at 21:00 Insulin Detemir (Levemir) 30 units BID SQ ; Start 03/06/17 at 21:00; Stop at 21:00; Status DC Pravastatin Sodium (Pravachol) 40 mg QHS PO Last administered on 03/20/17 19: 37; Start 03/06/17 at 21:00 Venlafaxine HCl (Effexor Xr) 75 mg DAILY PO Last administered on 03/12/17 07: 41; Start 03/07/17 at 09:00; Stop 03/12/17 at 12:34; Status DC Insulin Aspart (NovoLOG) TID SQ Last administered on 03/06/17 18:09; Start 03/06/17 at 18:00; Stop 03/06/17 at 22:31; Status DC Dextrose 12.5 gm PRN Q15MIN PRN IV SEE COMMENTS; Start 03/06/17 at 16:30 Glucose (Insta-Glucose) 15 gm PRN Q15MIN PRN PO LOW BLOOD SUGAR; Start at 16:30 Insulin Detemir (Levemir) 36 units HS SQ ; Start 03/06/17 at 21:00; Stop 03/06 at 21:00; Status DC Insulin Detemir (Levemir) 30 units DAILY SQ ; Start 03/07/17 at 09:00; Stop at 09:00; Status DC Insulin Detemir (Levemir) 40 units HS SQ Last administered on 03/06/17 19:44 ; Start 03/06/17 at 21:00; Stop 03/06/17 at 22:31; Status DC Insulin Detemir (Levemir) 40 units DAILY SQ ; Start 03/07/17 at 09:00; Stop at 09:00; Status DC Fluconazole (Diflucan) 100 mg DAILY PO Last administered on 03/14/17 07:53; Start 03/07/17 at 09:00; Stop 03/14/17 at 09:01; Status DC Nystatin/ Triamcinolone Acetonide (Mycolog Ii) 1 raquel BID TP Last administered on 03/20/17 19:42; Start 03/06/17 at 21:00 Nystatin (Nystop) 1 raquel PRN BID PRN TP REDNESS Last administered on 03/08/17 19:28; Start 03/06/17 at 17:30 Insulin Aspart (NovoLOG) 5 units TIDAC SQ Last administered on 03/07/17 11:30 ; Start 03/06/17 at 18:00; Stop 03/07/17 at 17:21; Status DC Insulin Aspart (NovoLOG) TIDAC SQ Last administered on 03/20/17 17:49; Start 03/07/17 at 07:30 Insulin Detemir (Levemir) 40 units BID SQ Last administered on 03/20/17 19:48 ; Start 03/07/17 at 09:00 Insulin Aspart (NovoLOG) 10 units TIDAC SQ Last administered on 03/15/17 12:05 ; Start 03/08/17 at 07:30; Stop 03/15/17 at 15:19; Status DC Lisinopril (Prinivil) 40 mg DAILY PO Last administered on 03/20/17 08:56; Start 03/08/17 at 09:00 Vitamin D (Vitamin D3) 50,000 unit Sa@2000 PO Last administered on 03/14/17 19 :30; Start 03/07/17 at 20:00 Quetiapine Fumarate (SEROquel) 25 mg QHS PO Last administered on 03/11/17 19: 40; Start 03/09/17 at 21:00; Stop 03/12/17 at 19:07; Status DC Venlafaxine HCl (Effexor Xr) 112.5 mg DAILY PO Last administered on 03/20/17 08:56; Start 03/13/17 at 09:00 Quetiapine Fumarate (SEROquel) 50 mg QHS PO Last administered on 03/20/17 19: 37; Start 03/12/17 at 21:00 Medroxyprogesterone Acetate (Provera) 5 mg DAILY PO Last administered on 08:11; Start 03/14/17 at 09:00; Stop 03/19/17 at 11:30; Status DC Prenat Multivit/ [place]/Iron/Folic Ac (Multivitamin ) 1 tab DAILYBFRSUP PO Last administered on 03/20/17 17:48; Start 03/15/17 at 17:00 Insulin Aspart (NovoLOG) 15 units TIDAC SQ Last administered on 03/20/17 17: 48; Start 03/15/17 at 16:30 Medroxyprogesterone Acetate (Provera) 7.5 mg DAILY PO Last administered on 09:04; Start 03/20/17 at 09:00 Active Scripts Active Reported Effexor Xr (Venlafaxine Hcl) 75 Mg Cap.er.24h 75 Mg PO DAILY Lamisil (Terbinafine Hcl) 250 Mg Tablet 1 Raquel PO BID Pravastatin Sodium 40 Mg Tablet 40 Mg PO QHS Klor-Con M20 (Potassium Chloride) 20 Meq Tab.er.prt 20 Meq PO DAILY Metoprolol Tartrate 25 Mg Tablet 25 Mg PO BID Lisinopril 20 Mg Tablet 20 Mg PO DAILY Lantus Solostar (Insulin Glargine,Hum.rec.anlog) 100 Unit/1 Ml Insuln.pen 30 Unit SQ BID Gabapentin 300 Mg Capsule 300 Mg PO QHS Gabapentin 100 Mg Capsule 100 Mg PO BIDACBL Lasix (Furosemide) 40 Mg Tablet 40 Mg PO DAILY Tylenol (Acetaminophen) 325 Mg Tablet 650 Mg PO PRN Q4-6HRS PRN I have reviewed the current psychotropics carefully including drug interactions. Risk benefit ratio favors no change other than as noted in my dictated progress note. Diagnosis: Problems: (1) Anxiety disorder (2) Impulse control disorder (3) Bipolar affective disorder, mixed (4) Dementia, vascular, with delusions LIZ DIANE MD Mar 20, 2017 20:05
--- NOTE | 2017-03-21 03:08 | PN ---
DATE: 03/20/2017 This is a late entry, 03/18/2017. Covers the elements not covered in my initial note of 03/18/2017. Met with the patient the evening of 03/18/2017. The patient has been appropriate even while taking showers assisted by female nursing staff, no sexual comments noted. REVIEW OF SYSTEMS: No CV, , pulmonary, eye, ENT system symptoms on review. MENTAL STATUS EXAM: Oriented reasonably to himself, short term memory has some deficits. Speech coherent, abstraction fair, computation impaired, language function intact, attention span short. Mood and affect is improved. IMPRESSION: Unchanged from initial note. PLAN: Continue current psychotropics, may need to increase Provera depending if he see any words inappropriate or hypersexual behaviors. Continue the rest unchanged. Review drug interactions. Risk/benefit ratio favors no further change. MAN Newton DIANE MD DR: MATILDA/james JOB#: [id number] / [id number]
--- NOTE | 2017-03-21 03:26 | PN ---
DATE: 03/20/2017 This is a late entry 03/19/2017. Covers the elements not covered in my initial note of 03/19/2017 SUBJECTIVE: The patient was staffed with treatment team meeting with the entire team morning of 03/19/2017 seen individually evening of 03/19/2017. He has overall been calm, compliant, but per nursing report the evening of 03/19/2017, he has made some inappropriate sexual comments. No CV, , pulmonary, eye, ENT system symptoms on review. MENTAL STATUS EXAM: Reasonably oriented. Does have some short-term memory deficits. Abstraction fair, computation impaired, language function intact. Mood and affect somewhat anxious, labile at times, but improved. LABORATORY DATA: Reviewed. IMPRESSION: Unchanged from initial note. PLAN: Increase Provera to 7.5 mg a day, continue rest and change. Review drug interactions. Risk/benefits ratio favors no further change. MAN Newton DIANE MD DR: MATILDA/james JOB#: [id number] / [id number]
[2017-03-21 06:01] VITALS: BP 166/90
[2017-03-21] MEDS: INSULIN ASPART 300 UNITS/3 ML INSULN.PEN SQ SCH ×6 (07:30→17:19)
[2017-03-21] MEDS: POTASSIUM CHLORIDE 20 MEQ TABLET.ER. PO SCH (08:11)
[2017-03-21] MEDS: FUROSEMIDE 40 MG TABLET PO SCH (08:11)
[2017-03-21] MEDS: GABAPENTIN 100 MG CAPSULE. PO SCH ×2 (08:12→13:44)
[2017-03-21] MEDS: METOPROLOL TART IMMED RELEASE 25 MG TABLET PO SCH ×2 (08:12→19:44)
[2017-03-21] MEDS: LISINOPRIL 20 MG TABLET PO SCH (08:12)
[2017-03-21] MEDS: medroxyPROGESTERone 5 MG TABLET PO SCH (08:12)
[2017-03-21] MEDS: PRENATAL MULTIVITAMIN TABLET. PO SCH (08:13)
[2017-03-21] MEDS: VENLAFAXINE XR 37.5 MG CAP.ER.24H. PO SCH (08:13)
[2017-03-21] MEDS: TERBINAFINE 1% TOPICAL CREAM 30GM TUBE. TP SCH ×2 (08:32→19:44)
[2017-03-21] MEDS: NYSTATIN/TRIAMCIN TOPICAL CREAM 15GM TUBE. TP SCH ×2 (08:32→19:44)
[2017-03-21] MEDS: INSULIN DETEMIR 300 UNITS/3 ML INSULN.PEN. SQ SCH ×2 (09:20→20:11)
[2017-03-21 15:58] VITALS: BP 177/83
[2017-03-21] MEDS: PRAVASTATIN 20 MG TABLET. PO SCH (19:43)
[2017-03-21] MEDS: CHOLECALCIFEROL (VITAMIN D3) 50,000 UNIT CAPSULE PO SCH (19:43)
[2017-03-21] MEDS: GABAPENTIN 300 MG CAPSULE. PO SCH (19:43)
[2017-03-21] MEDS: QUEtiapine 50 MG TABLET. PO SCH (19:43)
--- NOTE | 2017-03-21 19:50 | PDOC ---
Exam Note: Adriano Note: Please also refer to the separate dictated note~for this date of service dictated separately.~Patient seen individually. Discussed the patient with Nursing staff reviewed the chart.~Reviewed interim history and current functioning. Reviewed vital signs,~Labs/ Radiology~and current medications noted below. Continue current treatment with the changes noted in the dictated addendum note Assessment: Vital Signs: Vital Signs Date Time Temp Pulse Resp B/P (MAP) Pulse Ox O2 Delivery O2 Flow Rate FiO2 03/21/17 19:44 74 177/83 03/21/17 15:58 97.6 15 98 Room Air I&O Intake and Output 03/22/17 07:00 Intake Total 1380 ml Balance 1380 ml Intake Oral 1380 ml Labs: Laboratory Tests Test 03/21/17 07:03 03/21/17 11:13 03/21/17 16:38 03/21/17 19:03 Glucose (Fingerstick) 129 mg/dL (70-99) H 254 mg/dL (70-99) H 251 mg/dL (70-99) H 353 mg/dL (70-99) H Current Medications: Meds: Current Medications Multi-Ingredient Ointment (Analgesic [place]) 1 raquel PRN QID PRN TP MUSCLE PAIN; Start 03/06/17 at 16:15 Al Hydroxide/Mg Hydroxide (Mylanta Plus Xs) 15 ml PRN AFTMEALHC PRN PO DYSPEPSIA; Start 03/06/17 at 16:15 Magnesium Hydroxide (Milk Of Magnesia) 2,400 mg PRN QHS PRN PO CONSTIPATION Last administered on 03/17/17 20:23; Start 03/06/17 at 16:15 Acetaminophen (Tylenol) 650 mg PRN Q6HRS PRN PO PAIN / TEMP Last administered on 03/08/17 08:02; Start 03/06/17 at 16:30 Furosemide (Lasix) 40 mg DAILY PO Last administered on 03/21/17 08:11; Start 03/07/17 at 09:00 Gabapentin (Neurontin) 100 mg BIDACBL PO Last administered on 03/21/17 13:44 ; Start 03/07/17 at 07:30 Gabapentin (Neurontin) 300 mg QHS PO Last administered on 03/21/17 19:43; Start 03/06/17 at 21:00 Lisinopril (Prinivil) 20 mg DAILY PO Last administered on 03/07/17 08:07; Start 03/07/17 at 09:00; Stop 03/07/17 at 18:30; Status DC Metoprolol Tartrate (Lopressor) 25 mg BID PO Last administered on 03/21/17 19 :44; Start 03/06/17 at 21:00 Potassium Chloride (Klor-Con) 20 meq DAILY PO Last administered on 03/21/17 08:11; Start 03/07/17 at 09:00 Terbinafine HCl (LamISIL) 1 raquel BID TP Last administered on 03/21/17 19:44; Start 03/06/17 at 21:00 Insulin Detemir (Levemir) 30 units BID SQ ; Start 03/06/17 at 21:00; Stop at 21:00; Status DC Pravastatin Sodium (Pravachol) 40 mg QHS PO Last administered on 03/21/17 19: 43; Start 03/06/17 at 21:00 Venlafaxine HCl (Effexor Xr) 75 mg DAILY PO Last administered on 03/12/17 07: 41; Start 03/07/17 at 09:00; Stop 03/12/17 at 12:34; Status DC Insulin Aspart (NovoLOG) TID SQ Last administered on 03/06/17 18:09; Start 03/06/17 at 18:00; Stop 03/06/17 at 22:31; Status DC Dextrose 12.5 gm PRN Q15MIN PRN IV SEE COMMENTS; Start 03/06/17 at 16:30 Glucose (Insta-Glucose) 15 gm PRN Q15MIN PRN PO LOW BLOOD SUGAR; Start at 16:30 Insulin Detemir (Levemir) 36 units HS SQ ; Start 03/06/17 at 21:00; Stop 03/06 at 21:00; Status DC Insulin Detemir (Levemir) 30 units DAILY SQ ; Start 03/07/17 at 09:00; Stop at 09:00; Status DC Insulin Detemir (Levemir) 40 units HS SQ Last administered on 03/06/17 19:44 ; Start 03/06/17 at 21:00; Stop 03/06/17 at 22:31; Status DC Insulin Detemir (Levemir) 40 units DAILY SQ ; Start 03/07/17 at 09:00; Stop at 09:00; Status DC Fluconazole (Diflucan) 100 mg DAILY PO Last administered on 03/14/17 07:53; Start 03/07/17 at 09:00; Stop 03/14/17 at 09:01; Status DC Nystatin/ Triamcinolone Acetonide (Mycolog Ii) 1 raquel BID TP Last administered on 03/21/17 19:44; Start 03/06/17 at 21:00 Nystatin (Nystop) 1 raquel PRN BID PRN TP REDNESS Last administered on 03/08/17 19:28; Start 03/06/17 at 17:30 Insulin Aspart (NovoLOG) 5 units TIDAC SQ Last administered on 03/07/17 11:30 ; Start 03/06/17 at 18:00; Stop 03/07/17 at 17:21; Status DC Insulin Aspart (NovoLOG) TIDAC SQ Last administered on 03/21/17 17:19; Start 03/07/17 at 07:30 Insulin Detemir (Levemir) 40 units BID SQ Last administered on 03/21/17 09:20 ; Start 03/07/17 at 09:00 Insulin Aspart (NovoLOG) 10 units TIDAC SQ Last administered on 03/15/17 12:05 ; Start 03/08/17 at 07:30; Stop 03/15/17 at 15:19; Status DC Lisinopril (Prinivil) 40 mg DAILY PO Last administered on 03/21/17 08:12; Start 03/08/17 at 09:00 Vitamin D (Vitamin D3) 50,000 unit Sa@2000 PO Last administered on 03/21/17 19:43; Start 03/07/17 at 20:00 Quetiapine Fumarate (SEROquel) 25 mg QHS PO Last administered on 03/11/17 19: 40; Start 03/09/17 at 21:00; Stop 03/12/17 at 19:07; Status DC Venlafaxine HCl (Effexor Xr) 112.5 mg DAILY PO Last administered on 03/21/17 08:13; Start 03/13/17 at 09:00 Quetiapine Fumarate (SEROquel) 50 mg QHS PO Last administered on 03/21/17 19: 43; Start 03/12/17 at 21:00 Medroxyprogesterone Acetate (Provera) 5 mg DAILY PO Last administered on 08:11; Start 03/14/17 at 09:00; Stop 03/19/17 at 11:30; Status DC Prenat Multivit/ [place]/Iron/Folic Ac (Multivitamin ) 1 tab DAILYBFRSUP PO Last administered on 03/21/17 08:13; Start 03/15/17 at 17:00 Insulin Aspart (NovoLOG) 15 units TIDAC SQ Last administered on 03/21/17 17: 19; Start 03/15/17 at 16:30 Medroxyprogesterone Acetate (Provera) 7.5 mg DAILY PO Last administered on 08:12; Start 03/20/17 at 09:00 Active Scripts Active Reported Effexor Xr (Venlafaxine Hcl) 75 Mg Cap.er.24h 75 Mg PO DAILY Lamisil (Terbinafine Hcl) 250 Mg Tablet 1 Raquel PO BID Pravastatin Sodium 40 Mg Tablet 40 Mg PO QHS Klor-Con M20 (Potassium Chloride) 20 Meq Tab.er.prt 20 Meq PO DAILY Metoprolol Tartrate 25 Mg Tablet 25 Mg PO BID Lisinopril 20 Mg Tablet 20 Mg PO DAILY Lantus Solostar (Insulin Glargine,Hum.rec.anlog) 100 Unit/1 Ml Insuln.pen 30 Unit SQ BID Gabapentin 300 Mg Capsule 300 Mg PO QHS Gabapentin 100 Mg Capsule 100 Mg PO BIDACBL Lasix (Furosemide) 40 Mg Tablet 40 Mg PO DAILY Tylenol (Acetaminophen) 325 Mg Tablet 650 Mg PO PRN Q4-6HRS PRN I have reviewed the current psychotropics carefully including drug interactions. Risk benefit ratio favors no change other than as noted in my dictated progress note. Diagnosis: Problems: (1) Anxiety disorder (2) Impulse control disorder (3) Bipolar affective disorder, mixed (4) Dementia, vascular, with delusions LIZ DIANE MD Mar 21, 2017 19:50
--- NOTE | 2017-03-22 05:45 | PN ---
DATE: 03/21/2017 This late entry 03/20/2017 covers elements not covered in my initial note of 03/20/2017. I met with the patient the evening of 03/20/2016. The patient is distressed that he is not getting adequate meals. In fact, he is getting double portions. He is wanting Boost. He is a diabetic and we will have dietitian discuss all this with him. Previous evening, he was somewhat sexually inappropriate, but none of that evident on 03/20/2017. REVIEW OF SYSTEMS: No CV, , pulmonary, eye, ENT system symptoms on review. Reliability poor. MENTAL STATUS EXAM: Reasonably oriented. Speech coherent, abstraction fair, computation impaired, language function intact. Attention span short, short-term memory is impaired. No active suicidal or homicidal ideation. IMPRESSION: Unchanged from my initial note. PLAN: Continue psychotropics mentioned in my initial note. MAN Newton DIANE MD DR: MATILAD/james JOB#: [id number] / [id number]
[2017-03-22 06:07] VITALS: BP 183/90
[2017-03-22] MEDS: INSULIN DETEMIR 300 UNITS/3 ML INSULN.PEN. SQ SCH ×2 (08:07→21:08)
[2017-03-22] MEDS: METOPROLOL TART IMMED RELEASE 25 MG TABLET PO SCH ×2 (08:07→20:44)
[2017-03-22] MEDS: GABAPENTIN 100 MG CAPSULE. PO SCH ×2 (08:07→11:57)
[2017-03-22] MEDS: FUROSEMIDE 40 MG TABLET PO SCH (08:07)
[2017-03-22] MEDS: VENLAFAXINE XR 37.5 MG CAP.ER.24H. PO SCH (08:08)
[2017-03-22] MEDS: INSULIN ASPART 300 UNITS/3 ML INSULN.PEN SQ SCH ×6 (08:09→17:31)
[2017-03-22] MEDS: medroxyPROGESTERone 5 MG TABLET PO SCH (08:11)
[2017-03-22] MEDS: LISINOPRIL 20 MG TABLET PO SCH (08:11)
[2017-03-22] MEDS: POTASSIUM CHLORIDE 20 MEQ TABLET.ER. PO SCH (08:12)
[2017-03-22] MEDS: NYSTATIN/TRIAMCIN TOPICAL CREAM 15GM TUBE. TP SCH ×2 (09:00→21:00)
[2017-03-22] MEDS: TERBINAFINE 1% TOPICAL CREAM 30GM TUBE. TP SCH ×2 (09:00→21:00)
[2017-03-22 15:58] VITALS: BP 165/79
[2017-03-22] MEDS: PRENATAL MULTIVITAMIN TABLET. PO SCH (17:27)
--- NOTE | 2017-03-22 19:49 | PDOC ---
Exam Note: Adriano Note: Please also refer to the separate dictated note~for this date of service dictated separately.~Patient seen individually. Discussed the patient with Nursing staff reviewed the chart.~Reviewed interim history and current functioning. Reviewed vital signs,~Labs/ Radiology~and current medications noted below. Continue current treatment with the changes noted in the dictated addendum note Assessment: Vital Signs: Vital Signs Date Time Temp Pulse Resp B/P (MAP) Pulse Ox O2 Delivery O2 Flow Rate FiO2 03/22/17 15:58 97.8 62 18 165/79 (107) 95 Room Air I&O Intake and Output 03/23/17 07:00 Intake Total 1260 ml Balance 1260 ml Intake Oral 1260 ml Labs: Laboratory Tests Test 03/22/17 07:05 03/22/17 11:31 03/22/17 16:18 03/22/17 19:05 Glucose (Fingerstick) 165 mg/dL (70-99) H 215 mg/dL (70-99) H 173 mg/dL (70-99) H 268 mg/dL (70-99) H Current Medications: Meds: Current Medications Multi-Ingredient Ointment (Analgesic [place]) 1 raquel PRN QID PRN TP MUSCLE PAIN; Start 03/06/17 at 16:15 Al Hydroxide/Mg Hydroxide (Mylanta Plus Xs) 15 ml PRN AFTMEALHC PRN PO DYSPEPSIA; Start 03/06/17 at 16:15 Magnesium Hydroxide (Milk Of Magnesia) 2,400 mg PRN QHS PRN PO CONSTIPATION Last administered on 03/17/17 20:23; Start 03/06/17 at 16:15 Acetaminophen (Tylenol) 650 mg PRN Q6HRS PRN PO PAIN / TEMP Last administered on 03/08/17 08:02; Start 03/06/17 at 16:30 Furosemide (Lasix) 40 mg DAILY PO Last administered on 03/22/17 08:07; Start 03/07/17 at 09:00 Gabapentin (Neurontin) 100 mg BIDACBL PO Last administered on 03/22/17 11:57 ; Start 03/07/17 at 07:30 Gabapentin (Neurontin) 300 mg QHS PO Last administered on 03/21/17 19:43; Start 03/06/17 at 21:00 Lisinopril (Prinivil) 20 mg DAILY PO Last administered on 03/07/17 08:07; Start 03/07/17 at 09:00; Stop 03/07/17 at 18:30; Status DC Metoprolol Tartrate (Lopressor) 25 mg BID PO Last administered on 03/22/17 08 :07; Start 03/06/17 at 21:00 Potassium Chloride (Klor-Con) 20 meq DAILY PO Last administered on 03/22/17 08:12; Start 03/07/17 at 09:00 Terbinafine HCl (LamISIL) 1 raquel BID TP Last administered on 03/22/17 09:00; Start 03/06/17 at 21:00 Insulin Detemir (Levemir) 30 units BID SQ ; Start 03/06/17 at 21:00; Stop at 21:00; Status DC Pravastatin Sodium (Pravachol) 40 mg QHS PO Last administered on 03/21/17 19: 43; Start 03/06/17 at 21:00 Venlafaxine HCl (Effexor Xr) 75 mg DAILY PO Last administered on 03/12/17 07: 41; Start 03/07/17 at 09:00; Stop 03/12/17 at 12:34; Status DC Insulin Aspart (NovoLOG) TID SQ Last administered on 03/06/17 18:09; Start 03/06/17 at 18:00; Stop 03/06/17 at 22:31; Status DC Dextrose 12.5 gm PRN Q15MIN PRN IV SEE COMMENTS; Start 03/06/17 at 16:30 Glucose (Insta-Glucose) 15 gm PRN Q15MIN PRN PO LOW BLOOD SUGAR; Start at 16:30 Insulin Detemir (Levemir) 36 units HS SQ ; Start 03/06/17 at 21:00; Stop 03/06 at 21:00; Status DC Insulin Detemir (Levemir) 30 units DAILY SQ ; Start 03/07/17 at 09:00; Stop at 09:00; Status DC Insulin Detemir (Levemir) 40 units HS SQ Last administered on 03/06/17 19:44 ; Start 03/06/17 at 21:00; Stop 03/06/17 at 22:31; Status DC Insulin Detemir (Levemir) 40 units DAILY SQ ; Start 03/07/17 at 09:00; Stop at 09:00; Status DC Fluconazole (Diflucan) 100 mg DAILY PO Last administered on 03/14/17 07:53; Start 03/07/17 at 09:00; Stop 03/14/17 at 09:01; Status DC Nystatin/ Triamcinolone Acetonide (Mycolog Ii) 1 raquel BID TP Last administered on 03/22/17 09:00; Start 03/06/17 at 21:00 Nystatin (Nystop) 1 raquel PRN BID PRN TP REDNESS Last administered on 03/08/17 19:28; Start 03/06/17 at 17:30 Insulin Aspart (NovoLOG) 5 units TIDAC SQ Last administered on 03/07/17 11:30 ; Start 03/06/17 at 18:00; Stop 03/07/17 at 17:21; Status DC Insulin Aspart (NovoLOG) TIDAC SQ Last administered on 03/22/17 17:30; Start 03/07/17 at 07:30 Insulin Detemir (Levemir) 40 units BID SQ Last administered on 03/22/17 08:07 ; Start 03/07/17 at 09:00 Insulin Aspart (NovoLOG) 10 units TIDAC SQ Last administered on 03/15/17 12:05 ; Start 03/08/17 at 07:30; Stop 03/15/17 at 15:19; Status DC Lisinopril (Prinivil) 40 mg DAILY PO Last administered on 03/22/17 08:11; Start 03/08/17 at 09:00 Vitamin D (Vitamin D3) 50,000 unit Sa@2000 PO Last administered on 03/21/17 19:43; Start 03/07/17 at 20:00 Quetiapine Fumarate (SEROquel) 25 mg QHS PO Last administered on 03/11/17 19: 40; Start 03/09/17 at 21:00; Stop 03/12/17 at 19:07; Status DC Venlafaxine HCl (Effexor Xr) 112.5 mg DAILY PO Last administered on 03/22/17 08:08; Start 03/13/17 at 09:00 Quetiapine Fumarate (SEROquel) 50 mg QHS PO Last administered on 03/21/17 19: 43; Start 03/12/17 at 21:00; Stop 03/22/17 at 17:49; Status DC Medroxyprogesterone Acetate (Provera) 5 mg DAILY PO Last administered on 08:11; Start 03/14/17 at 09:00; Stop 03/19/17 at 11:30; Status DC Prenat Multivit/ [place]/Iron/Folic Ac (Multivitamin ) 1 tab DAILYBFRSUP PO Last administered on 03/22/17 17:27; Start 03/15/17 at 17:00 Insulin Aspart (NovoLOG) 15 units TIDAC SQ Last administered on 03/22/17 17: 31; Start 03/15/17 at 16:30 Medroxyprogesterone Acetate (Provera) 7.5 mg DAILY PO Last administered on 08:11; Start 03/20/17 at 09:00 Quetiapine Fumarate (SEROquel) 75 mg QHS PO ; Start 03/22/17 at 21:00 Active Scripts Active Reported Effexor Xr (Venlafaxine Hcl) 75 Mg Cap.er.24h 75 Mg PO DAILY Lamisil (Terbinafine Hcl) 250 Mg Tablet 1 Raquel PO BID Pravastatin Sodium 40 Mg Tablet 40 Mg PO QHS Klor-Con M20 (Potassium Chloride) 20 Meq Tab.er.prt 20 Meq PO DAILY Metoprolol Tartrate 25 Mg Tablet 25 Mg PO BID Lisinopril 20 Mg Tablet 20 Mg PO DAILY Lantus Solostar (Insulin Glargine,Hum.rec.anlog) 100 Unit/1 Ml Insuln.pen 30 Unit SQ BID Gabapentin 300 Mg Capsule 300 Mg PO QHS Gabapentin 100 Mg Capsule 100 Mg PO BIDACBL Lasix (Furosemide) 40 Mg Tablet 40 Mg PO DAILY Tylenol (Acetaminophen) 325 Mg Tablet 650 Mg PO PRN Q4-6HRS PRN I have reviewed the current psychotropics carefully including drug interactions. Risk benefit ratio favors no change other than as noted in my dictated progress note. Diagnosis: Problems: (1) Anxiety disorder (2) Impulse control disorder (3) Bipolar affective disorder, mixed (4) Dementia, vascular, with delusions LIZ DIANE MD Mar 22, 2017 19:49
[2017-03-22] MEDS: PRAVASTATIN 20 MG TABLET. PO SCH (20:43)
[2017-03-22] MEDS: GABAPENTIN 300 MG CAPSULE. PO SCH (20:43)
[2017-03-22] MEDS ORDERED: QUEtiapine 25 MG TABLET. PO SCH (21:00)
[2017-03-22] MEDS ORDERED: CHOL500050 PO (22:37)
[2017-03-22] MEDS ORDERED: INSU100I17 SQ ×2 (22:39→22:40)
[2017-03-22] MEDS ORDERED: LISI40TA PO (22:44)
[2017-03-22] MEDS ORDERED: MAG30ORA2 PO (22:45)
[2017-03-22] MEDS ORDERED: MAGN400O7 PO (22:46)
[2017-03-22] MEDS ORDERED: METH29OI TP (22:46)
[2017-03-22] MEDS ORDERED: NYST15CR2 TP (22:47)
[2017-03-22] MEDS ORDERED: NYST60PO TP (22:47)
[2017-03-22] MEDS ORDERED: PNV1TABL25 PO (22:48)
[2017-03-22] MEDS ORDERED: QUET50TA5 PO (22:49)
[2017-03-22] MEDS ORDERED: VENL37.5 PO (22:50)
[2017-03-22] MEDS ORDERED: MEDR5TAB PO (22:52)
--- NOTE | 2017-03-23 02:10 | PN ---
DATE: 03/21/2017 This late entry for 03/21/2017 covers elements not covered in my initial note of 03/21/2017. SUBJECTIVE: I met with the patient in the evening of 03/21/2017. Overall, the patient has had some sexually inappropriate statements that he has made to the nursing staff, but does redirect. REVIEW OF SYSTEMS: No CV, , pulmonary, eye, ENT system symptoms on review. MENTAL STATUS EXAM: Oriented to himself and situation. Speech coherent, abstraction fair, computation impaired, language function intact. Attention span short, short term memory has some impairment. No suicidal or homicidal ideation. IMPRESSION: Unchanged from initial note. PLAN: No change from initial note. MAN Newton DIANE MD DR: MATILDA/james JOB#: [id number] / [id number]
[2017-03-23 05:56] VITALS: BP 154/83
[2017-03-23] MEDS: INSULIN ASPART 300 UNITS/3 ML INSULN.PEN SQ SCH ×2 (07:30→08:15)
[2017-03-23] MEDS: medroxyPROGESTERone 5 MG TABLET PO SCH (07:38)
[2017-03-23] MEDS: GABAPENTIN 100 MG CAPSULE. PO SCH (07:38)
[2017-03-23] MEDS: LISINOPRIL 20 MG TABLET PO SCH (07:39)
[2017-03-23] MEDS: VENLAFAXINE XR 37.5 MG CAP.ER.24H. PO SCH (07:39)
[2017-03-23] MEDS: POTASSIUM CHLORIDE 20 MEQ TABLET.ER. PO SCH (07:39)
[2017-03-23 07:40] VITALS: BP 154/83
[2017-03-23] MEDS: NYSTATIN/TRIAMCIN TOPICAL CREAM 15GM TUBE. TP SCH (07:40)
[2017-03-23] MEDS: FUROSEMIDE 40 MG TABLET PO SCH (07:40)
[2017-03-23] MEDS: METOPROLOL TART IMMED RELEASE 25 MG TABLET PO SCH (07:40)
[2017-03-23] MEDS: TERBINAFINE 1% TOPICAL CREAM 30GM TUBE. TP SCH (07:40)
[2017-03-23] MEDS: INSULIN DETEMIR 300 UNITS/3 ML INSULN.PEN. SQ SCH (08:14)
--- NOTE | 2017-03-24 05:20 | PN ---
DATE: 03/22/2017 PSYCHIATRIC PROGRESS NOTE This late entry 03/22/2017, covers elements not covered in my initial note 03/22/2017. SUBJECTIVE: I met with the patient the evening of 03/22/2017. He has been somewhat sexually inappropriate with female nursing staff and tried to get "Jessica into the shower" per nursing report. He is also talking to another demented patient about sexual matters somewhat more impulsive. He minimized this as I processed this with him individually. REVIEW OF SYSTEMS: No CV, , pulmonary, eye, ENT system symptoms on review. MENTAL STATUS EXAM: Oriented to himself and situation. Speech is coherent. He is fixated on wanting double portions of meals, which he is already getting and then wanting supplements beyond this. Abstraction fair, computation impaired, language function intact. Attention span improved. Mood and affect remains somewhat labile, but showing improvement. LABORATORY DATA: Reviewed. IMPRESSION: Unchanged from my initial note. PLAN: Increase Seroquel from 50 mg at bedtime to 75 mg at bedtime. Rest unchanged. Provera was recently increased to 7.5 mg a day. MAN Newton DIANE MD DR: MATILDA/james JOB#: [id number] / [id number]
--- NOTE | 2017-03-24 22:09 | DS ---
DATE OF DISCHARGE: 03/23/2017 DISCHARGE SUMMARY/PSYCHIATRIC PROGRESS NOTE REASON FOR ADMISSION: Please refer to the admission history for details. Briefly, the patient is a 71-year-old male referred to us from [facility] where he presented with increased delusions, depression, noncompliance with medications, confusion, paranoid behaviors. He had been sexually inappropriate, left [facility] where he was residing in [place] on 02/05/2017 hitchhiked to [place]. Police took him to a intermediate there. He hitchhiked back to [place] and was sleeping in the parking lot of the [facility] [employer] when he was picked up. Behaviors were deemed dangerous, out of control, unmanageable, having absconded from the facility. He was referred for inpatient psychiatric stabilization. 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 PSYCHIATRIC HISTORY: As noted above. SIGNIFICANT FINDINGS AND CLINICAL COURSE: Following admission, the patient was seen daily individually by myself from a psychiatric standpoint medical followup per Dr. Wetzel/Dr. Chapman. He was noted to have significant inappropriate sexual behaviors, trying to get female staff into the shower with him amongst other things. Adjustments were made in his psychotropics. He seemed to respond to a combination of Effexor XR 112.5 mg a day, Seroquel 75 mg at bedtime, Provera 7.5 mg p.o. daily latter helping with his sexually abrasive behaviors. CONDITION AT DISCHARGE: Improved. REVIEW OF SYSTEMS: Prior to discharge, no CV, , pulmonary, eye, ENT system symptoms on review. MENTAL STATUS EXAM: Oriented to himself and situation. Speech coherent, less pressured. Abstraction fair, computation impaired, language function intact, attention span short. Mood and affect is showing some improvement. LABORATORY DATA: Reviewed. FINAL DIAGNOSES: Bipolar 1 disorder, mixed with psychotic features, in partial remission, history of major depressive disorder with psychotic features in partial remission, impulse control disorder, unspecified. Rest diagnoses unchanged from admission. DISCHARGE MEDICATIONS: Please refer to the MRAD. DISCHARGE INSTRUCTIONS: Outpatient psychiatric and medical followup at the assisted. Time for discharge day management greater than 30 minutes. MAN Newton DIANE MD DR: MATILDA/james JOB#: [id number] / [id number]
== END 2017-03-23 09:41 | DRG 884 ==
LOC: GEROPSY 03-06 14:46
PROVIDERS: ADMIT Psychiatry & Neurology Psychiatry; ATTEND Psychiatry & Neurology Psychiatry
DX: F01.51 Vascular dementia, unspecified severity, with behavioral disturbance (principal); E11.42 Type 2 diabetes mellitus with diabetic polyneuropathy; E11.36 Type 2 diabetes mellitus with diabetic cataract; F10.27 Alcohol dependence with alcohol-induced persisting dementia; F02.81 Dementia in other diseases classified elsewhere, unspecified severity, with behavioral disturbance; F31.64 Bipolar disorder, current episode mixed, severe, with psychotic features; G30.0 Alzheimer's disease with early onset; E78.5 Hyperlipidemia, unspecified; F41.9 Anxiety disorder, unspecified; F63.9 Impulse disorder, unspecified; I10 Essential (primary) hypertension; Z79.4 Long term (current) use of insulin; Z79.899 Other long term (current) drug therapy; Z81.8 Family history of other mental and behavioral disorders; Z87.891 Personal history of nicotine dependence; Z91.14 Patient's other noncompliance with medication regimen; Z87.828 Personal history of other (healed) physical injury and trauma; Z88.2 Allergy status to sulfonamides
CPT/HCPCS: 36415; 80053; 80061; 82306; 82607; 82947; 83036; 83540; 83550; 83735; 84436; 84443; 84480; 85025; 86592; 86593; 93005; J1815

== ENCOUNTER 2017-07-28 14:11 | Inpatient (IN) | payer MEDICARE ==
[~2017-07-28] VITALS: Ht 172.7 cm; Wt 118.0 kg
[~2017-07-28 14:11] MED LIST: ACET325T9 PO; CHOL500050 PO; FURO-68 PO; GABA-585 PO; GABA-586 PO; INSU100I13 SQ; INSU100I17 SQ; KETO15VI18 IV; LISI-334 PO; LISI40TA PO; MAG30ORA2 PO; MAGN400O7 PO; MEDR5TAB PO; METH29OI TP; METO25TA4 PO; NYST15CR2 TP; NYST60PO TP; PNV1TABL25 PO; POTA20TA4 PO; PRAV40TA2 PO; QUET50TA5 PO; TERB250T PO; VENL37.5 PO; VENL75CA PO
[2017-07-28 17:59] VITALS: BP 173/89
[2017-07-28] MEDS ORDERED: FOLI1TAB16 PO (18:13)
[2017-07-28] MEDS ORDERED: OLAN5TAB9 PO (18:13)
[2017-07-28] MEDS ORDERED: THIA100T8 PO (18:13)
[2017-07-28] MEDS ORDERED: ENOX40DI SQ (18:13)
[2017-07-28] MEDS: METOPROLOL TART IMMED RELEASE 50 MG TABLET PO SCH (20:43)
[2017-07-28] MEDS: LISINOPRIL 20 MG TABLET PO SCH (20:43)
[2017-07-28] MEDS: GABAPENTIN 100 MG CAPSULE. PO SCH (20:44)
[2017-07-28] MEDS: INSULIN DETEMIR 300 UNITS/3 ML INSULN.PEN. SQ SCH (20:45)
--- NOTE | 2017-07-28 20:46 | PDOC ---
Exam Note: Adriano Note: Please also refer to the separate dictated note~for this date of service dictated separately.~Patient seen individually. Discussed the patient with Nursing staff reviewed the chart.~Reviewed interim history and current functioning. Reviewed vital signs,~Labs/ Radiology~and current medications noted below. Continue current treatment with the changes noted in the dictated addendum note Assessment: Vital Signs: Vital Signs Date Time Temp Pulse Resp B/P (MAP) Pulse Ox O2 Delivery O2 Flow Rate FiO2 07/28/17 20:43 58 173/89 07/28/17 17:59 98.5 20 98 Room Air Labs: Laboratory Tests Test 07/28/17 19:05 Glucose (Fingerstick) 260 mg/dL (70-99) H Current Medications: Meds: Current Medications Olanzapine (ZyPREXA) 5 mg QHS PO Last administered on 07/28/17at 20:43; Start at 21:00 Gabapentin (Neurontin) 100 mg TID PO Last administered on 07/28/17 20:44; Start 07/28/17 at 21:00 Metoprolol Tartrate (Lopressor) 100 mg BID PO Last administered on 07/28/17at 20 :43; Start 07/28/17 at 21:00 Insulin Detemir (Levemir) 30 units BID SQ Last administered on 07/28/17 20:45 ; Start 07/28/17 at 21:00 Lisinopril (Prinivil) 20 mg BID PO Last administered on 07/28/17at 20:43; Start 07/28/17 at 21:00 Active Scripts Active Reported Thiamine Hcl 100 Mg Tablet 100 Mg PO DAILY Olanzapine 5 Mg Tablet 1 Tab PO QHS Folic Acid 1 Mg Tablet 1 Tab PO DAILY Lovenox (Enoxaparin Sodium) 40 Mg/0.4 Ml Disp.syrin 0.4 Ml SQ DAILY Lisinopril 40 Mg Tablet 20 Mg PO BID Novolog Flexpen (Insulin Aspart) 100 Unit/1 Ml Insuln.pen 0-7 Unit SQ TIDAC Novolog Flexpen (Insulin Aspart) 100 Unit/1 Ml Insuln.pen 15 Unit SQ TIDAC Metoprolol Tartrate 25 Mg Tablet 100 Mg PO BID Lantus Solostar (Insulin Glargine,Hum.rec.anlog) 100 Unit/1 Ml Insuln.pen 30 Unit SQ BID Gabapentin 100 Mg Capsule 100 Mg PO TID I have reviewed the current psychotropics carefully including drug interactions. Risk benefit ratio favors no change other than as noted in my dictated progress note. Diagnosis: Problems: (1) Anxiety disorder (2) Impulse control disorder (3) Bipolar affective disorder, mixed (4) Dementia, vascular, with delusions (5) Dementia with behavioral disturbance LIZ DIANE MD Jul 28, 2017 20:46
[2017-07-28] MEDS ORDERED: OLANZapine 5 MG TABLET PO SCH (21:00)
[2017-07-29 07:30] VITALS: BP 139/66
[2017-07-29 07:37] LABS: BASO % 1 % (0-3); EOS # 0.2 x10^3/uL (0.0-0.7); EOS % 3 % (0-3); HEMATOCRIT 39.5 % (39.0-53.0); HEMOGLOBIN 13.5 g/dL (13.0-17.5); LYMPH # 1.8 x10^3/uL (1.0-4.8); LYMPH % 26 % (24-48); MEAN CORPUSCULAR HEMOGLOBIN 31 pg (25-35); MEAN CORPUSCULAR HGB CONC 34 g/dL (31-37); MEAN CORPUSCULAR VOLUME 91 fL (79-100); MONO # 0.5 x10^3/uL (0.0-1.1); MONO % 7 % (0-9); NEUT # 4.2 x10^3uL (1.8-7.7); NEUT % 64 % (31-73); PLATELET COUNT 151 x10^3/uL (140-400); RED BLOOD COUNT 4.34 x10^6/uL (4.30-5.70); RED CELL DISTRIBUTION WIDTH 14.7 % (11.5-14.5); WHITE BLOOD COUNT 6.7 x10^3/uL (4.0-11.0)
[2017-07-29 07:48] LABS: ALBUMIN 3.3 g/dL (3.4-5.0); ALBUMIN/GLOBULIN RATIO 0.9 (1.0-1.7); CALCIUM 8.8 mg/dL (8.5-10.1); GFR 73.5; MAGNESIUM 1.9 mg/dL (1.8-2.4); POTASSIUM 3.7 mmol/L (3.5-5.1); TOTAL BILIRUBIN 0.4 mg/dL (0.2-1.0)
[2017-07-29] MEDS ORDERED: DEXTROSE 50% 25 GM / 50ML DISP.SYRIN. IV PRN (09:15)
[2017-07-29] MEDS: GABAPENTIN 100 MG CAPSULE. PO SCH ×3 (09:34→20:10)
[2017-07-29] MEDS: METOPROLOL TART IMMED RELEASE 50 MG TABLET PO SCH ×2 (09:34→20:10)
[2017-07-29] MEDS: LISINOPRIL 20 MG TABLET PO SCH ×2 (09:35→20:10)
[2017-07-29] MEDS: INSULIN DETEMIR 300 UNITS/3 ML INSULN.PEN. SQ SCH ×2 (09:39→20:17)
[2017-07-29] MEDS: NICOTINE POLACRILEX GUM 2 MG GUM. BC PRN (10:59)
[2017-07-29 11:34] LABS: THYROID STIM HORMONE (TSH) 3.246 uIU/mL (0.358-3.740)
[2017-07-29] MEDS: INSULIN ASPART 300 UNITS/3 ML INSULN.PEN SQ SCH ×3 (12:40→17:02)
--- NOTE | 2017-07-29 13:12 | HP ---
ADMIT DATE: 07/28/2017 This is a late entry for 07/28/2017 and covers elements not covered in my initial note of 07/28/2017. IDENTIFYING DATA: The patient is a 71-year-old male who is referred back to us from the Emergency Room at [facility] where he presented from the motel he had been living since he is homeless. He is having changes in mental status, found to have hyperglycemia, blood sugar in the 700s, noncompliant with his medications, with confusion, agitation, aggression. At [facility], he was swinging at nursing staff, ripping out IV lines, sexually inappropriate, not cooperative with cares. The patient has been with us in the past with a diagnosis of bipolar disorder and major neurocognitive disorder, was [facility] to the [facility] and then left there on his own accord and was homeless, noncompliant with all treatments resulting in going back to the [facility] and then referred to us because of dangerous, out of control behaviors. CHIEF COMPLAINT: "There is nothing right, everything is wrong. I need to get out of here." HISTORY OF PRESENT ILLNESS: The patient has a history of bipolar disorder with periods of elation, racing thoughts, alternating with being depressed, psychotic, paranoid. He has also been more confused, significant short term memory deficits, poor judgment, resulting in him leaving the nursing facility he was living at and being homeless. Even though he has not had active recent suicidal ideation, most of his behaviors were to a point where he was an imminent danger to himself given all of the above circumstances and noncompliance with treatment. He does also have a history of alcohol abuse, though the toxicology screen was negative at [facility]. PAST PSYCHIATRIC HISTORY: The patient has been hospitalized here in the past. PAST MEDICAL HISTORY: Diabetes mellitus, CHF, hypertension, hyperlipidemia, hyponatremia, past history of alcohol abuse, vitamin deficiency, hernia repair surgery, morbid obesity. Accu-Chek is a.c. and at bedtime. Diet: Regular, ADA. CODE STATUS: DNR. ALLERGIES: SULFA. Takes his medications whole, ambulates up ad mike with walker. UA was negative. CURRENT PSYCHOTROPICS: EMRAD was reviewed. FAMILY HISTORY: Noncontributory. SOCIAL HISTORY: He has been homeless. Alcohol abuse history is noted above, details unclear at this stage. MENTAL STATUS EXAM: The patient was seen individually evening of 07/28/2017 soon after he arrived on the unit. He is quite irritable, labile, dismissive of the reasons for his hospitalization. He said he remembered me. Speech coherent, rapid at times. Abstraction fair, computation impaired, language function intact. Short term memory is impaired. No active suicidal or homicidal ideation. Attention span is short. Intellect average. Insight poor. Judgment marginal. IMPRESSION: Bipolar 1 disorder, mixed with psychotic features; major neurocognitive disorder, Alzheimer, vascular with delusion, depression; anxiety disorder, unspecified; impulse control disorder, unspecified. Rest is above. TREATMENT PLAN: Admit to Geropsychiatry Unit at [facility]. I will see the patient daily individually from a psychiatric standpoint, medical followup per Dr. Wetzel/Dr. Chapman. Continue the patient on his current psychotropics, observe baseline, then adjust as clinically indicated. LIZ DIANE MD DR: MATILDA/james JOB#: [id number] / [id number]
[2017-07-29 15:56] VITALS: BP 108/57
--- NOTE | 2017-07-29 16:01 | PDOC1 ---
History of Present Illness Reason for Visit: Depression History of Present Illness Pt sent to [facility] from [facility] where pt presented w/ high blood sugars and depression. He is homeless and had been living in a hotel. He has been hospitalized here in the past for similar issues. He was previously at a halfway but was discharged from there. He has a past history of alcohol abuse, and states that he wishes he could just "go home and drink." He has not apparently had alcohol in quite a while. Today he is quite docile. He has a hx of DM. He walks with a walker. He has no complaints. Per nursing he has been "fine" since admission. Per chart, pt was very agitated in the ER in [place], swinging at staff, yelling, etc. Pt has a hx of bipolar d/o as well. Chief Complaint: Depression Allergies: Coded Allergies: Sulfa (Sulfonamide Antibiotics) (Verified Allergy, Intermediate, 03/07/17) Past Medical History Cardiac: CAD, CHF, HTN, hyperipidemia Psych: Other (Hx alcohol abuse) Endocrine: Diabetes Past Surgical History: Hernia Repair Family History: No pertinent hx Past Social History Smoke: No Alcohol: other (Past) Drugs: None Lives: Homeless Review of Systems Review Of Systems Fourteen system , review of systems has been reviewed. See HPI for pertinent positives and negative responses, other sabillon all other systems are negative, non pertinent or non contributory Allergies: Coded Allergies: Sulfa (Sulfonamide Antibiotics) (Verified Allergy, Intermediate, 03/07/17) Medications Current Medications Olanzapine (ZyPREXA) 5 mg QHS PO Last administered on 07/28/17at 20:43; Start at 21:00 Gabapentin (Neurontin) 100 mg TID PO Last administered on 07/29/17at 13:48; Start 07/28/17 at 21:00 Metoprolol Tartrate (Lopressor) 100 mg BID PO Last administered on 07/29/17at 09 :34; Start 07/28/17 at 21:00 Insulin Detemir (Levemir) 30 units BID SQ Last administered on 07/29/17at 09:39 ; Start 07/28/17 at 21:00 Lisinopril (Prinivil) 20 mg BID PO Last administered on 07/29/17at 09:35; Start 07/28/17 at 21:00 Insulin Aspart (NovoLOG) 0-7 UNITS TIDAC SQ Last administered on 07/29/17at 12: 40; Start 07/29/17 at 11:30 Dextrose 12.5 gm PRN Q15MIN PRN IV SEE COMMENTS; Start 07/29/17 at 09:15 Nicotine Polacrilex (Nicorette Gum) 2 mg PRN Q2HR PRN BC SMOKING CESSATION Last administered on 07/29/17at 10:59; Start 07/29/17 at 10:45 Active Scripts Active Reported Thiamine Hcl 100 Mg Tablet 100 Mg PO DAILY Olanzapine 5 Mg Tablet 1 Tab PO QHS Folic Acid 1 Mg Tablet 1 Tab PO DAILY Lovenox (Enoxaparin Sodium) 40 Mg/0.4 Ml Disp.syrin 0.4 Ml SQ DAILY Lisinopril 40 Mg Tablet 20 Mg PO BID Novolog Flexpen (Insulin Aspart) 100 Unit/1 Ml Insuln.pen 0-7 Unit SQ TIDAC Novolog Flexpen (Insulin Aspart) 100 Unit/1 Ml Insuln.pen 15 Unit SQ TIDAC Metoprolol Tartrate 25 Mg Tablet 100 Mg PO BID Lantus Solostar (Insulin Glargine,Hum.rec.anlog) 100 Unit/1 Ml Insuln.pen 30 Unit SQ BID Gabapentin 100 Mg Capsule 100 Mg PO TID Exam Vital Signs Vital Signs Date Time Temp Pulse Resp B/P (MAP) Pulse Ox O2 Delivery O2 Flow Rate FiO2 07/29/17 09:35 60 139/66 07/29/17 07:30 98.2 20 97 07/28/17 17:59 Room Air General Appearance: Alert, Cooperative, No acute distress, Other (Oriented x 2 (not time)) HEENT: Atraumatic, PERRLA, EOMI, Mucous membr. moist/pink, Other (Sclerae clear , anicteric; neck supple, no JVD, no LAD) Respiratory: Clear to auscultation, Normal air movement Heart: Regular rate, Normal S1, Normal S2, No murmurs Abdominal: Soft, No tenderness, No hepatospenomegaly, No masses Extremities: No edema, Normal pulses, No tenderness/swelling Skin: No rashes, No breakdown Neuro: Normal speech, Strength at 5/5 X4 ext, Normal tone, Sensation intact, Cranial nerves 3-12 NL, Other (Gait steady w/ wheeled walker) Psych/Mental Status: Mood NL Assessment/Plan Assessment/Plan 1. Depression w/ agitative behaviors: Per Dr. Danielson. 2. Past hx of alcoholism: No recent use. No signs of withdrawal on exam, though we will monitor for this. 3. DM: BG's a bit high. Continue home meds. If still in 200's in a couple days will need to adjust meds. 4. HTN: Ok now, continue to monitor. 5. DVT proph: Pt is fully ambulatory, no indication for heparin. COURSE Allergies Coded Allergies Type Severity Reaction Last Updated Verified Sulfa (Sulfonamide Antibiotics) Allergy Intermediate 03/07/17 Yes Laboratory Tests Test 07/28/17 19:05 07/29/17 07:19 07/29/17 07:30 07/29/17 12:36 Glucose (Fingerstick) 260 mg/dL (70-99) 179 mg/dL (70-99) 231 mg/dL (70-99) White Blood Count 6.7 x10^3/uL (4.0-11.0) Red Blood Count 4.34 x10^6/uL (4.30-5.70) Hemoglobin 13.5 g/dL (13.0-17.5) Hematocrit 39.5 % (39.0-53.0) Mean Corpuscular Volume 91 fL (79-100) Mean Corpuscular Hemoglobin 31 pg (25-35) Mean Corpuscular Hemoglobin Concent 34 g/dL (31-37) Red Cell Distribution Width 14.7 % (11.5-14.5) Platelet Count 151 x10^3/uL (140-400) Neutrophils (%) (Auto) 64 % (31-73) Lymphocytes (%) (Auto) 26 % (24-48) Monocytes (%) (Auto) 7 % (0-9) Eosinophils (%) (Auto) 3 % (0-3) Basophils (%) (Auto) 1 % (0-3) Neutrophils # (Auto) 4.2 x10^3uL (1.8-7.7) Lymphocytes # (Auto) 1.8 x10^3/uL (1.0-4.8) Monocytes # (Auto) 0.5 x10^3/uL (0.0-1.1) Eosinophils # (Auto) 0.2 x10^3/uL (0.0-0.7) Basophils # (Auto) 0.0 x10^3/uL (0.0-0.2) Sodium Level 141 mmol/L (136-145) Potassium Level 3.7 mmol/L (3.5-5.1) Chloride Level 107 mmol/L (98-107) Carbon Dioxide Level 23 mmol/L (21-32) Anion Gap 11 (6-14) Blood Urea Nitrogen 16 mg/dL (8-26) Creatinine 1.0 mg/dL (0.7-1.3) Estimated GFR (Cockcroft-Gault) 73.5 BUN/Creatinine Ratio 16 (6-20) Glucose Level 201 mg/dL (70-99) Calcium Level 8.8 mg/dL (8.5-10.1) Magnesium Level 1.9 mg/dL (1.8-2.4) Iron Level 120 ug/dL (65-175) Total Iron Binding Capacity 343 ug/dL (250-450) Iron Saturation 35 % (15-34) Total Bilirubin 0.4 mg/dL (0.2-1.0) Aspartate Amino Transf (AST/SGOT) 16 U/L (15-37) Alanine Aminotransferase (ALT/SGPT) 53 U/L (16-63) Alkaline Phosphatase 68 U/L (46-116) Total Protein 7.0 g/dL (6.4-8.2) Albumin 3.3 g/dL (3.4-5.0) Albumin/Globulin Ratio 0.9 (1.0-1.7) Triglycerides Level 107 mg/dL (0-150) Cholesterol Level 161 mg/dL (0-200) LDL Cholesterol, Calculated 107 mg/dL (0-100) VLDL Cholesterol, Calculated 21 mg/dL (0-40) Non-HDL Cholesterol Calculated 128 mg/dL (0-129) HDL Cholesterol 33 mg/dL (40-60) Cholesterol/HDL Ratio 4.0 Vitamin B12 Level 323 pg/mL (247-911) 25-Hydroxy Vitamin D Total 32.5 ng/mL (30-100) Thyroid Stimulating Hormone (TSH) 3.246 uIU/mL (0.358-3.740) Current Medications Medications (Trade) Dose Ordered Sig/Alexi Route PRN Reason Start Time Stop Time Status Last Admin Dose Admin Olanzapine (ZyPREXA) 5 mg QHS PO 07/28/17 21:00 07/28/17 20:43 Gabapentin (Neurontin) 100 mg TID PO 07/28/17 21:00 07/29/17 13:48 Metoprolol Tartrate (Lopressor) 100 mg BID PO 07/28/17 21:00 07/29/17 09:34 Insulin Detemir (Levemir) 30 units BID SQ 07/28/17 21:00 07/29/17 09:39 Lisinopril (Prinivil) 20 mg BID PO 07/28/17 21:00 07/29/17 09:35 Insulin Aspart (NovoLOG) 0-7 UNITS TIDAC SQ 07/29/17 11:30 07/29/17 12:40 Dextrose 12.5 gm PRN Q15MIN PRN IV SEE COMMENTS 07/29/17 09:15 Nicotine Polacrilex (Nicorette Gum) 2 mg PRN Q2HR PRN BC SMOKING CESSATION 07/29/17 10:45 07/29/17 10:59 I & O 07/29/17 00:00 Intake Total 360 ml Balance 360 ml Vital Signs Date Time Temp Pulse Resp B/P (MAP) Pulse Ox O2 Delivery O2 Flow Rate FiO2 07/29/17 09:35 60 139/66 07/29/17 07:30 98.2 20 97 07/28/17 17:59 Room Air DONNA GARZA MD Jul 29, 2017 16:01
[2017-07-29 19:12] LABS: T3 TOTAL 126 ng/dL (71-180); THYROXINE 7.1 ug/dL (4.5-12.0)
[2017-07-29 20:08] VITALS: BP 127/75
[2017-07-29] MEDS: QUEtiapine 50 MG TABLET. PO SCH (20:10)
[2017-07-30 03:07] LABS: HEMOGLOBIN A1C 9.5 % (4.8-5.6)
[2017-07-30 05:52] VITALS: BP 138/73
[2017-07-30] MEDS: INSULIN ASPART 300 UNITS/3 ML INSULN.PEN SQ SCH ×6 (07:30→17:18)
[2017-07-30] MEDS: GABAPENTIN 100 MG CAPSULE. PO SCH ×3 (07:57→22:02)
[2017-07-30] MEDS: METOPROLOL TART IMMED RELEASE 50 MG TABLET PO SCH ×2 (07:57→22:07)
[2017-07-30] MEDS: LISINOPRIL 20 MG TABLET PO SCH ×2 (07:58→22:09)
[2017-07-30] MEDS: THIAMINE 100 MG TABLET. PO SCH (07:59)
[2017-07-30] MEDS: FOLIC ACID 1 MG TABLET PO SCH (08:00)
[2017-07-30] MEDS: INSULIN DETEMIR 300 UNITS/3 ML INSULN.PEN. SQ SCH ×2 (08:03→22:05)
[2017-07-30] MEDS: DIVALPROEX 125 MG CAP.SPRINK PO SCH ×2 (12:42→22:04)
[2017-07-30 16:03] VITALS: BP 114/64
--- NOTE | 2017-07-30 20:57 | PDOC ---
Exam Note: Adriano Note: Please also refer to the separate dictated note~for this date of service dictated separately.~Patient seen individually. Discussed the patient with Nursing staff reviewed the chart.~Reviewed interim history and current functioning. Reviewed vital signs,~Labs/ Radiology~and current medications noted below. Continue current treatment with the changes noted in the dictated addendum note Assessment: Vital Signs: Vital Signs Date Time Temp Pulse Resp B/P (MAP) Pulse Ox O2 Delivery O2 Flow Rate FiO2 07/30/17 16:03 98.8 73 18 114/64 (81) 100 07/29/17 20:08 Room Air I&O Intake and Output 07/30/17 07:00 Intake Total 1320 ml Balance 1320 ml Intake Oral 1320 ml # Voids 1 Labs: Laboratory Tests Test 07/30/17 07:36 07/30/17 11:24 07/30/17 17:00 07/30/17 19:02 Glucose (Fingerstick) 71 mg/dL (70-99) 243 mg/dL (70-99) H 234 mg/dL (70-99) H 298 mg/dL (70-99) H Current Medications: Meds: Current Medications Olanzapine (ZyPREXA) 5 mg QHS PO Last administered on 07/28/17at 20:43; Start at 21:00; Stop 07/29/17 at 18:42; Status DC Gabapentin (Neurontin) 100 mg TID PO Last administered on 07/30/17at 12:42; Start 07/28/17 at 21:00 Metoprolol Tartrate (Lopressor) 100 mg BID PO Last administered on 07/30/17at 07 :57; Start 07/28/17 at 21:00 Insulin Detemir (Levemir) 30 units BID SQ Last administered on 07/30/17at 08:03 ; Start 07/28/17 at 21:00 Lisinopril (Prinivil) 20 mg BID PO Last administered on 07/30/17at 07:58; Start 07/28/17 at 21:00 Insulin Aspart (NovoLOG) 0-7 UNITS TIDAC SQ Last administered on 07/30/17at 17: 18; Start 07/29/17 at 11:30 Dextrose 12.5 gm PRN Q15MIN PRN IV SEE COMMENTS; Start 07/29/17 at 09:15 Nicotine Polacrilex (Nicorette Gum) 2 mg PRN Q2HR PRN BC SMOKING CESSATION Last administered on 07/29/17at 10:59; Start 07/29/17 at 10:45 Folic Acid (Folic Acid) 1 mg DAILY PO Last administered on 07/30/17at 08:00; Start 07/30/17 at 09:00 Insulin Aspart (NovoLOG) 15 units TIDAC SQ Last administered on 07/30/17at 17:16 ; Start 07/29/17 at 16:30 Thiamine HCl (Vitamin B-1) 100 mg DAILY PO Last administered on 07/30/17at 07:59 ; Start 07/30/17 at 09:00 Quetiapine Fumarate (SEROquel) 50 mg HS PO Last administered on 07/29/17at 20:10 ; Start 07/29/17 at 21:00 Medroxyprogesterone Acetate (Provera) 2.5 mg DAILY PO Last administered on 07/30at 07:59; Start 07/30/17 at 09:00; Stop 08/02/17 at 08:59 Olanzapine (ZyPREXA ZYDIS) 2.5 mg PRN Q2HR PRN PO PSYCHOSIS; Start 07/29/17 at 18:45 Divalproex Sodium (Depakote Sprinkles) 125 mg TID PO Last administered on at 12:42; Start 07/30/17 at 14:00 Medroxyprogesterone Acetate (Provera) 5 mg DAILY PO ; Start 08/02/17 at 09:00 Active Scripts Active Reported Thiamine Hcl 100 Mg Tablet 100 Mg PO DAILY Olanzapine 5 Mg Tablet 1 Tab PO QHS Folic Acid 1 Mg Tablet 1 Tab PO DAILY Lovenox (Enoxaparin Sodium) 40 Mg/0.4 Ml Disp.syrin 0.4 Ml SQ DAILY Lisinopril 40 Mg Tablet 20 Mg PO BID Novolog Flexpen (Insulin Aspart) 100 Unit/1 Ml Insuln.pen 0-7 Unit SQ TIDAC Novolog Flexpen (Insulin Aspart) 100 Unit/1 Ml Insuln.pen 15 Unit SQ TIDAC Metoprolol Tartrate 25 Mg Tablet 100 Mg PO BID Lantus Solostar (Insulin Glargine,Hum.rec.anlog) 100 Unit/1 Ml Insuln.pen 30 Unit SQ BID Gabapentin 100 Mg Capsule 100 Mg PO TID I have reviewed the current psychotropics carefully including drug interactions. Risk benefit ratio favors no change other than as noted in my dictated progress note. Diagnosis: Problems: (1) Anxiety disorder (2) Impulse control disorder (3) Bipolar affective disorder, mixed (4) Dementia, vascular, with delusions (5) Dementia with behavioral disturbance LIZ DIANE MD Jul 30, 2017 20:57
[2017-07-30] MEDS: QUEtiapine 50 MG TABLET. PO SCH (22:02)
[2017-07-31] MEDS: NICOTINE POLACRILEX GUM 2 MG GUM. BC PRN (01:42)
[2017-07-31 05:51] VITALS: BP 116/47
[2017-07-31] MEDS: INSULIN ASPART 300 UNITS/3 ML INSULN.PEN SQ SCH ×6 (07:30→17:35)
[2017-07-31] MEDS: DIVALPROEX 125 MG CAP.SPRINK PO SCH ×3 (07:44→20:43)
[2017-07-31] MEDS: THIAMINE 100 MG TABLET. PO SCH (07:44)
[2017-07-31] MEDS: FOLIC ACID 1 MG TABLET PO SCH (07:44)
[2017-07-31] MEDS: GABAPENTIN 100 MG CAPSULE. PO SCH ×3 (07:45→20:42)
[2017-07-31] MEDS: METOPROLOL TART IMMED RELEASE 50 MG TABLET PO SCH ×2 (08:17→20:44)
[2017-07-31] MEDS: INSULIN DETEMIR 300 UNITS/3 ML INSULN.PEN. SQ SCH ×2 (08:20→20:46)
[2017-07-31] MEDS: LISINOPRIL 20 MG TABLET PO SCH ×2 (08:20→20:43)
[2017-07-31 08:22] VITALS: BP 140/69
--- NOTE | 2017-07-31 10:04 | PN ---
DATE: 07/29/2017 This late entry 07/29/2017 covers elements not covered in my initial note 07/29/2017. The patient was seen individually evening of 07/29/2017. SUBJECTIVE: Per nursing report, the patient was quite agitated, labile in his mood the previous evening, sexually inappropriate. In the past, he had been on Provera 7.5 mg a day, Effexor ER 112.5 mg a day, Seroquel 75 mg p.o. at bedtime, all of which were stopped by the patient since he left the nursing facility and had been homeless for a period of time. REVIEW OF SYSTEMS: Ambulation impaired with walker. No CV, , pulmonary, eye system symptoms on review. MENTAL STATUS EXAM: Oriented to himself and situation. Speech is coherent, rapid at times. Abstraction fair, computation impaired, language function intact, attention span short. Mood and affect remain somewhat labile, depressed and paranoid. IMPRESSION: Major depressive disorder with psychotic features, major neurocognitive disorder, early vascular with delusions, major neurocognitive disorder, possibly secondary to alcohol abuse with delusion, depression. Rest unchanged. PLAN: We will change the Zyprexa 5 mg at bedtime to Seroquel 50 mg at bedtime. Start Provera 2.5 mg a day with a plan to increase gradually. Start Zyprexa 2.5 mg q. 2 hours p.r.n. psychosis, agitation, max 10 mg in 24 hours. Consider Depakote as a mood stabilizer. LIZ DIANE MD DR: MATILDA/james JOB#: [id number] / [id number]
--- NOTE | 2017-07-31 13:01 | PN ---
DATE: 07/30/2017 PSYCHIATRIC PROGRESS NOTE This is a late entry 07/30/2017, covers elements not covered in my initial note 07/30/2017. SUBJECTIVE: I met with the patient the evening of 07/30/2017 and the patient was staffed at treatment team meeting with the entire team morning of 07/30/2017. The patient slept 5-3/4 hours previous evening, remains somewhat sexually inappropriate, verbally to nursing staff repeatedly. REVIEW OF SYSTEMS: Ambulation impaired with walker. No CV, , pulmonary, eye system symptoms on review. As I met with him in the evening, he was fixated on wanting extra meals and I have discussed with nursing staffs, slept 5-3/4 hours previous evening. Ambulation impaired. No CV, , pulmonary, eye system symptoms on review. MENTAL STATUS EXAM: Oriented to himself and situation. Speech coherent, less pressured. Abstraction fair, computation impaired, language function intact, attention span short. Mood and affect remain somewhat labile. LABORATORY DATA: Reviewed. IMPRESSION: Possible bipolar 1 disorder, mixed with psychotic features; major neurocognitive disorder early secondary to alcohol, vascular with delusion, behavioral disturbance. Rest unchanged. PLAN: We will increase Provera to 5 mg a day after he has been on 2.5 mg for 2 days. Maintain Seroquel. Start Depakote 125 mg 3 times a day as a mood stabilizer. Check CBC, CMP, valproic acid level in 3 days. MAN Newton DIANE MD DR: MATILDA/james JOB#: [id number] / [id number]
[2017-07-31 16:11] VITALS: BP 116/50
[2017-07-31] MEDS: QUEtiapine 50 MG TABLET. PO SCH (20:42)
[2017-07-31] MEDS: traZODone 50 MG TABLET. PO SCH (20:45)
--- NOTE | 2017-07-31 20:59 | PDOC ---
Exam Note: Adriano Note: Please also refer to the separate dictated note~for this date of service dictated separately.~Patient seen individually. Discussed the patient with Nursing staff reviewed the chart.~Reviewed interim history and current functioning. Reviewed vital signs,~Labs/ Radiology~and current medications noted below. Continue current treatment with the changes noted in the dictated addendum note Assessment: Vital Signs: Vital Signs Date Time Temp Pulse Resp B/P (MAP) Pulse Ox O2 Delivery O2 Flow Rate FiO2 07/31/17 20:44 57 116/50 07/31/17 16:11 98.1 18 98 07/29/17 20:08 Room Air I&O Intake and Output 07/31/17 07:00 Intake Total 1200 ml Balance 1200 ml Intake Oral 1200 ml # Voids 1 Labs: Laboratory Tests Test 07/31/17 04:45 07/31/17 07:52 07/31/17 11:33 07/31/17 16:34 Glucose (Fingerstick) 173 mg/dL (70-99) H 137 mg/dL (70-99) H 119 mg/dL (70-99) H 95 mg/dL (70-99) Test 07/31/17 19:01 Glucose (Fingerstick) 112 mg/dL (70-99) H Current Medications: Meds: Current Medications Olanzapine (ZyPREXA) 5 mg QHS PO Last administered on 07/28/17 20:43; Start at 21:00; Stop 07/29/17 at 18:42; Status DC Gabapentin (Neurontin) 100 mg TID PO Last administered on 07/31/17 20:42; Start 07/28/17 at 21:00 Metoprolol Tartrate (Lopressor) 100 mg BID PO Last administered on 07/31/17 20 :44; Start 07/28/17 at 21:00 Insulin Detemir (Levemir) 30 units BID SQ Last administered on 07/31/17 20:46 ; Start 07/28/17 at 21:00 Lisinopril (Prinivil) 20 mg BID PO Last administered on 07/31/17 20:43; Start 07/28/17 at 21:00 Insulin Aspart (NovoLOG) 0-7 UNITS TIDAC SQ Last administered on 07/30/17at 17: 18; Start 07/29/17 at 11:30 Dextrose 12.5 gm PRN Q15MIN PRN IV SEE COMMENTS; Start 07/29/17 at 09:15 Nicotine Polacrilex (Nicorette Gum) 2 mg PRN Q2HR PRN BC SMOKING CESSATION Last administered on 07/31/17at 01:42; Start 07/29/17 at 10:45 Folic Acid (Folic Acid) 1 mg DAILY PO Last administered on 07/31/17at 07:44; Start 07/30/17 at 09:00 Insulin Aspart (NovoLOG) 15 units TIDAC SQ Last administered on 07/31/17at 17:35 ; Start 07/29/17 at 16:30 Thiamine HCl (Vitamin B-1) 100 mg DAILY PO Last administered on 07/31/17at 07:44 ; Start 07/30/17 at 09:00 Quetiapine Fumarate (SEROquel) 50 mg HS PO Last administered on 07/31/17at 20:42 ; Start 07/29/17 at 21:00 Medroxyprogesterone Acetate (Provera) 2.5 mg DAILY PO Last administered on 07/31at 07:44; Start 07/30/17 at 09:00; Stop 08/02/17 at 08:59 Olanzapine (ZyPREXA ZYDIS) 2.5 mg PRN Q2HR PRN PO PSYCHOSIS Last administered on 07/31/17at 02:55; Start 07/29/17 at 18:45 Divalproex Sodium (Depakote Sprinkles) 125 mg TID PO Last administered on at 20:43; Start 07/30/17 at 14:00 Medroxyprogesterone Acetate (Provera) 5 mg DAILY PO ; Start 08/02/17 at 09:00 Trazodone HCl (Desyrel) 50 mg QHS PO Last administered on 07/31/17at 20:45; Start 07/31/17 at 21:00 Trazodone HCl (Desyrel) 50 mg PRN QHS PRN PO INSOMNIA; Start 07/31/17 at 18:15 Active Scripts Active Reported Thiamine Hcl 100 Mg Tablet 100 Mg PO DAILY Olanzapine 5 Mg Tablet 1 Tab PO QHS Folic Acid 1 Mg Tablet 1 Tab PO DAILY Lovenox (Enoxaparin Sodium) 40 Mg/0.4 Ml Disp.syrin 0.4 Ml SQ DAILY Lisinopril 40 Mg Tablet 20 Mg PO BID Novolog Flexpen (Insulin Aspart) 100 Unit/1 Ml Insuln.pen 0-7 Unit SQ TIDAC Novolog Flexpen (Insulin Aspart) 100 Unit/1 Ml Insuln.pen 15 Unit SQ TIDAC Metoprolol Tartrate 25 Mg Tablet 100 Mg PO BID Lantus Solostar (Insulin Glargine,Hum.rec.anlog) 100 Unit/1 Ml Insuln.pen 30 Unit SQ BID Gabapentin 100 Mg Capsule 100 Mg PO TID I have reviewed the current psychotropics carefully including drug interactions. Risk benefit ratio favors no change other than as noted in my dictated progress note. Diagnosis: Problems: (1) Anxiety disorder (2) Impulse control disorder (3) Bipolar affective disorder, mixed (4) Dementia, vascular, with delusions (5) Dementia with behavioral disturbance LIZ DIANE MD Jul 31, 2017 20:59
[2017-08-01 05:48] VITALS: BP 123/52
[2017-08-01] MEDS: DIVALPROEX 125 MG CAP.SPRINK PO SCH ×3 (07:25→19:48)
[2017-08-01] MEDS: GABAPENTIN 100 MG CAPSULE. PO SCH ×3 (07:25→19:47)
[2017-08-01] MEDS: THIAMINE 100 MG TABLET. PO SCH (07:25)
[2017-08-01] MEDS: FOLIC ACID 1 MG TABLET PO SCH (07:25)
[2017-08-01] MEDS: LISINOPRIL 20 MG TABLET PO SCH ×2 (07:26→19:48)
[2017-08-01] MEDS: METOPROLOL TART IMMED RELEASE 50 MG TABLET PO SCH ×2 (07:28→19:48)
[2017-08-01] MEDS: INSULIN ASPART 300 UNITS/3 ML INSULN.PEN SQ SCH ×6 (07:30→17:57)
[2017-08-01] MEDS: INSULIN DETEMIR 300 UNITS/3 ML INSULN.PEN. SQ SCH ×2 (07:52→19:50)
[2017-08-01 07:56] VITALS: BP 124/65
[2017-08-01 16:02] VITALS: BP 153/59
--- NOTE | 2017-08-01 17:51 | PN ---
DATE: 07/31/2017 This is a late entry, 07/31/2017, covers the elements not covered in my initial note, 07/31/2017. SUBJECTIVE: I met with the patient in the evening of 07/31/2017. The patient has been somewhat irritable, withdrawn at times and unable to tell me the date, knew the year and who the president was. Complains of being more hungry than the amount of food is given; nursing staff will address this. REVIEW OF SYSTEMS: Ambulation impaired. No CV, , pulmonary, eye, ENT system symptoms on review. MENTAL STATUS EXAM: Reasonably oriented. Speech coherent, has some latency. Abstraction fair, computation impaired, language function intact. Mood and affect remain somewhat withdrawn, labile at times. LABORATORY DATA: Reviewed. IMPRESSION: Unchanged from initial note. He is sleeping poorly. PLAN: Start trazodone 50 mg at bedtime, may repeat x 1 as needed. Continue Rest unchanged from initial note. MAN Newton DIANE MD DR: MATILDA/james JOB#: [id number] / [id number]
[2017-08-01] MEDS: traZODone 50 MG TABLET. PO SCH (19:47)
[2017-08-01] MEDS: QUEtiapine 50 MG TABLET. PO SCH (19:48)
--- NOTE | 2017-08-01 22:01 | PDOC ---
Exam Note: Adriano Note: Please also refer to the separate dictated note~for this date of service dictated separately.~Patient seen individually. Discussed the patient with Nursing staff reviewed the chart.~Reviewed interim history and current functioning. Reviewed vital signs,~Labs/ Radiology~and current medications noted below. Continue current treatment with the changes noted in the dictated addendum note Assessment: Vital Signs: Vital Signs Date Time Temp Pulse Resp B/P (MAP) Pulse Ox O2 Delivery O2 Flow Rate FiO2 08/01/17 19:48 59 153/59 08/01/17 16:02 98.8 16 100 07/29/17 20:08 Room Air I&O Intake and Output 08/01/17 07:00 Intake Total 1200 ml Balance 1200 ml Intake Oral 1200 ml # Voids 1 Labs: Laboratory Tests Test 08/01/17 07:38 08/01/17 12:13 08/01/17 16:48 08/01/17 18:55 Glucose (Fingerstick) 101 mg/dL (70-99) H 166 mg/dL (70-99) H 157 mg/dL (70-99) H 222 mg/dL (70-99) H Current Medications: Meds: Current Medications Olanzapine (ZyPREXA) 5 mg QHS PO Last administered on 07/28/17 20:43; Start at 21:00; Stop 07/29/17 at 18:42; Status DC Gabapentin (Neurontin) 100 mg TID PO Last administered on 08/01/17 19:47; Start 07/28/17 at 21:00 Metoprolol Tartrate (Lopressor) 100 mg BID PO Last administered on 08/01/17 19 :48; Start 07/28/17 at 21:00 Insulin Detemir (Levemir) 30 units BID SQ Last administered on 08/01/17 19:50 ; Start 07/28/17 at 21:00 Lisinopril (Prinivil) 20 mg BID PO Last administered on 08/01/17 19:48; Start 07/28/17 at 21:00 Insulin Aspart (NovoLOG) 0-7 UNITS TIDAC SQ Last administered on 08/01/17at 17: 57; Start 07/29/17 at 11:30 Dextrose 12.5 gm PRN Q15MIN PRN IV SEE COMMENTS; Start 07/29/17 at 09:15 Nicotine Polacrilex (Nicorette Gum) 2 mg PRN Q2HR PRN BC SMOKING CESSATION Last administered on 07/31/17at 01:42; Start 07/29/17 at 10:45 Folic Acid (Folic Acid) 1 mg DAILY PO Last administered on 08/01/17 07:25; Start 07/30/17 at 09:00 Insulin Aspart (NovoLOG) 15 units TIDAC SQ Last administered on 08/01/17 17:55 ; Start 07/29/17 at 16:30 Thiamine HCl (Vitamin B-1) 100 mg DAILY PO Last administered on 08/01/17 07:25 ; Start 07/30/17 at 09:00 Quetiapine Fumarate (SEROquel) 50 mg HS PO Last administered on 08/01/17 19:48 ; Start 07/29/17 at 21:00 Medroxyprogesterone Acetate (Provera) 2.5 mg DAILY PO Last administered on 08/01 07:25; Start 07/30/17 at 09:00; Stop 08/02/17 at 08:59 Olanzapine (ZyPREXA ZYDIS) 2.5 mg PRN Q2HR PRN PO PSYCHOSIS Last administered on 08/01/17 13:15; Start 07/29/17 at 18:45 Divalproex Sodium (Depakote Sprinkles) 125 mg TID PO Last administered on 19:48; Start 07/30/17 at 14:00 Medroxyprogesterone Acetate (Provera) 5 mg DAILY PO ; Start 08/02/17 at 09:00 Trazodone HCl (Desyrel) 50 mg QHS PO Last administered on 08/01/17 19:47; Start 07/31/17 at 21:00 Trazodone HCl (Desyrel) 50 mg PRN QHS PRN PO INSOMNIA; Start 07/31/17 at 18:15 Active Scripts Active Reported Thiamine Hcl 100 Mg Tablet 100 Mg PO DAILY Olanzapine 5 Mg Tablet 1 Tab PO QHS Folic Acid 1 Mg Tablet 1 Tab PO DAILY Lovenox (Enoxaparin Sodium) 40 Mg/0.4 Ml Disp.syrin 0.4 Ml SQ DAILY Lisinopril 40 Mg Tablet 20 Mg PO BID Novolog Flexpen (Insulin Aspart) 100 Unit/1 Ml Insuln.pen 0-7 Unit SQ TIDAC Novolog Flexpen (Insulin Aspart) 100 Unit/1 Ml Insuln.pen 15 Unit SQ TIDAC Metoprolol Tartrate 25 Mg Tablet 100 Mg PO BID Lantus Solostar (Insulin Glargine,Hum.rec.anlog) 100 Unit/1 Ml Insuln.pen 30 Unit SQ BID Gabapentin 100 Mg Capsule 100 Mg PO TID I have reviewed the current psychotropics carefully including drug interactions. Risk benefit ratio favors no change other than as noted in my dictated progress note. Diagnosis: Problems: (1) Anxiety disorder (2) Impulse control disorder (3) Bipolar affective disorder, mixed (4) Dementia, vascular, with delusions (5) Dementia with behavioral disturbance LIZ DIANE MD Aug 01, 2017 22:01
[2017-08-02 05:50] VITALS: BP 138/56
[2017-08-02] MEDS: NICOTINE POLACRILEX GUM 2 MG GUM. BC PRN ×2 (07:00→09:24)
[2017-08-02] MEDS: INSULIN ASPART 300 UNITS/3 ML INSULN.PEN SQ SCH ×6 (07:30→17:16)
[2017-08-02] MEDS: GABAPENTIN 100 MG CAPSULE. PO SCH ×3 (07:50→19:37)
[2017-08-02] MEDS: METOPROLOL TART IMMED RELEASE 50 MG TABLET PO SCH ×2 (07:50→19:37)
[2017-08-02] MEDS: DIVALPROEX 125 MG CAP.SPRINK PO SCH ×3 (07:51→19:36)
[2017-08-02] MEDS: FOLIC ACID 1 MG TABLET PO SCH (07:51)
[2017-08-02] MEDS: THIAMINE 100 MG TABLET. PO SCH (07:51)
[2017-08-02] MEDS: LISINOPRIL 20 MG TABLET PO SCH ×2 (07:51→19:37)
[2017-08-02] MEDS: INSULIN DETEMIR 300 UNITS/3 ML INSULN.PEN. SQ SCH ×2 (07:54→19:40)
[2017-08-02] MEDS ORDERED: medroxyPROGESTERone 5 MG TABLET PO SCH (09:00)
[2017-08-02 16:08] VITALS: BP 155/65
[2017-08-02] MEDS: QUEtiapine 50 MG TABLET. PO SCH (19:37)
[2017-08-02] MEDS: traZODone 50 MG TABLET. PO SCH (19:37)
--- NOTE | 2017-08-02 21:00 | PDOC ---
Exam Note: Adriano Note: Please also refer to the separate dictated note~for this date of service dictated separately.~Patient seen individually. Discussed the patient with Nursing staff reviewed the chart.~Reviewed interim history and current functioning. Reviewed vital signs,~Labs/ Radiology~and current medications noted below. Continue current treatment with the changes noted in the dictated addendum note Assessment: Vital Signs: Vital Signs Date Time Temp Pulse Resp B/P (MAP) Pulse Ox O2 Delivery O2 Flow Rate FiO2 08/02/17 19:37 60 155/65 08/02/17 16:08 97.5 16 98 07/29/17 20:08 Room Air I&O Intake and Output 08/02/17 07:00 Intake Total 1300 ml Balance 1300 ml Intake Oral 1300 ml # Voids 1 Labs: Laboratory Tests Test 08/02/17 07:11 08/02/17 11:39 08/02/17 16:57 08/02/17 19:11 Glucose (Fingerstick) 81 mg/dL (70-99) 210 mg/dL (70-99) H 143 mg/dL (70-99) H 275 mg/dL (70-99) H Current Medications: Meds: Current Medications Olanzapine (ZyPREXA) 5 mg QHS PO Last administered on 07/28/17 20:43; Start at 21:00; Stop 07/29/17 at 18:42; Status DC Gabapentin (Neurontin) 100 mg TID PO Last administered on 08/02/17 19:37; Start 07/28/17 at 21:00 Metoprolol Tartrate (Lopressor) 100 mg BID PO Last administered on 08/02/17 19 :37; Start 07/28/17 at 21:00 Insulin Detemir (Levemir) 30 units BID SQ Last administered on 08/02/17 19:40 ; Start 07/28/17 at 21:00 Lisinopril (Prinivil) 20 mg BID PO Last administered on 08/02/17 19:37; Start 07/28/17 at 21:00 Insulin Aspart (NovoLOG) 0-7 UNITS TIDAC SQ Last administered on 08/02/17at 11: 55; Start 07/29/17 at 11:30 Dextrose 12.5 gm PRN Q15MIN PRN IV SEE COMMENTS; Start 07/29/17 at 09:15 Nicotine Polacrilex (Nicorette Gum) 2 mg PRN Q2HR PRN BC SMOKING CESSATION Last administered on 08/02/17 09:24; Start 07/29/17 at 10:45 Folic Acid (Folic Acid) 1 mg DAILY PO Last administered on 08/02/17 07:51; Start 07/30/17 at 09:00 Insulin Aspart (NovoLOG) 15 units TIDAC SQ Last administered on 08/02/17 17:16 ; Start 07/29/17 at 16:30 Thiamine HCl (Vitamin B-1) 100 mg DAILY PO Last administered on 08/02/17 07:51 ; Start 07/30/17 at 09:00 Quetiapine Fumarate (SEROquel) 50 mg HS PO Last administered on 08/02/17 19:37 ; Start 07/29/17 at 21:00 Medroxyprogesterone Acetate (Provera) 2.5 mg DAILY PO Last administered on 08/01 07:25; Start 07/30/17 at 09:00; Stop 08/02/17 at 08:59; Status DC Olanzapine (ZyPREXA ZYDIS) 2.5 mg PRN Q2HR PRN PO PSYCHOSIS Last administered on 08/01/17 13:15; Start 07/29/17 at 18:45 Divalproex Sodium (Depakote Sprinkles) 125 mg TID PO Last administered on 19:36; Start 07/30/17 at 14:00 Medroxyprogesterone Acetate (Provera) 5 mg DAILY PO Last administered on at 07:54; Start 08/02/17 at 09:00 Trazodone HCl (Desyrel) 50 mg QHS PO Last administered on 08/02/17 19:37; Start 07/31/17 at 21:00 Trazodone HCl (Desyrel) 50 mg PRN QHS PRN PO INSOMNIA; Start 07/31/17 at 18:15 Magnesium Hydroxide (Milk Of Magnesia) 2,400 mg PRN DAILY PRN PO CONSTIPATION; Start 08/02/17 at 19:45 Active Scripts Active Reported Thiamine Hcl 100 Mg Tablet 100 Mg PO DAILY Olanzapine 5 Mg Tablet 1 Tab PO QHS Folic Acid 1 Mg Tablet 1 Tab PO DAILY Lovenox (Enoxaparin Sodium) 40 Mg/0.4 Ml Disp.syrin 0.4 Ml SQ DAILY Lisinopril 40 Mg Tablet 20 Mg PO BID Novolog Flexpen (Insulin Aspart) 100 Unit/1 Ml Insuln.pen 0-7 Unit SQ TIDAC Novolog Flexpen (Insulin Aspart) 100 Unit/1 Ml Insuln.pen 15 Unit SQ TIDAC Metoprolol Tartrate 25 Mg Tablet 100 Mg PO BID Lantus Solostar (Insulin Glargine,Hum.rec.anlog) 100 Unit/1 Ml Insuln.pen 30 Unit SQ BID Gabapentin 100 Mg Capsule 100 Mg PO TID I have reviewed the current psychotropics carefully including drug interactions. Risk benefit ratio favors no change other than as noted in my dictated progress note. Diagnosis: Problems: (1) Anxiety disorder (2) Impulse control disorder (3) Bipolar affective disorder, mixed (4) Dementia, vascular, with delusions (5) Dementia with behavioral disturbance LIZ DIANE MD Aug 02, 2017 21:00
[2017-08-03] MEDS: traZODone 50 MG TABLET. PO PRN (01:51)
[2017-08-03 06:02] VITALS: BP 162/84
[2017-08-03] MEDS: INSULIN ASPART 300 UNITS/3 ML INSULN.PEN SQ SCH ×6 (07:30→17:45)
[2017-08-03 07:44] LABS: BASO % 0 % (0-3); EOS # 0.2 x10^3/uL (0.0-0.7); EOS % 3 % (0-3); HEMATOCRIT 36.9 % (39.0-53.0); HEMOGLOBIN 12.6 g/dL (13.0-17.5); LYMPH # 1.7 x10^3/uL (1.0-4.8); LYMPH % 26 % (24-48); MEAN CORPUSCULAR HEMOGLOBIN 31 pg (25-35); MEAN CORPUSCULAR HGB CONC 34 g/dL (31-37); MEAN CORPUSCULAR VOLUME 91 fL (79-100); MONO # 0.5 x10^3/uL (0.0-1.1); MONO % 8 % (0-9); NEUT % 63 % (31-73); PLATELET COUNT 129 x10^3/uL (140-400); RED BLOOD COUNT 4.07 x10^6/uL (4.30-5.70); RED CELL DISTRIBUTION WIDTH 14.7 % (11.5-14.5); WHITE BLOOD COUNT 6.4 x10^3/uL (4.0-11.0)
[2017-08-03 08:06] LABS: ALBUMIN/GLOBULIN RATIO 0.9 (1.0-1.7); ALK PHOS 68 U/L (46-116); ALT (SGPT) 28 U/L (16-63); ANION GAP 8 (6-14); AST (SGOT) 10 U/L (15-37); BLOOD UREA NITROGEN 12 mg/dL (8-26); BUN/CREATININE RATIO 15 (6-20); CALCIUM 8.5 mg/dL (8.5-10.1); CARBON DIOXIDE 26 mmol/L (21-32); CHLORIDE 107 mmol/L (98-107); CREATININE 0.8 mg/dL (0.7-1.3); GLUCOSE 179 mg/dL (70-99); SODIUM 141 mmol/L (136-145); TOTAL BILIRUBIN 0.3 mg/dL (0.2-1.0); TOTAL PROTEIN 6.4 g/dL (6.4-8.2)
[2017-08-03 08:15] LABS: VAL ACID 16 mcg/mL (50-100)
[2017-08-03] MEDS: THIAMINE 100 MG TABLET. PO SCH (09:11)
[2017-08-03] MEDS: METOPROLOL TART IMMED RELEASE 50 MG TABLET PO SCH ×2 (09:11→19:44)
[2017-08-03] MEDS: GABAPENTIN 100 MG CAPSULE. PO SCH ×3 (09:11→19:44)
[2017-08-03] MEDS: LISINOPRIL 20 MG TABLET PO SCH ×2 (09:11→19:44)
[2017-08-03] MEDS: DIVALPROEX 125 MG CAP.SPRINK PO SCH ×3 (09:11→19:43)
[2017-08-03] MEDS: FOLIC ACID 1 MG TABLET PO SCH (09:11)
[2017-08-03] MEDS: INSULIN DETEMIR 300 UNITS/3 ML INSULN.PEN. SQ SCH ×2 (09:13→19:45)
[2017-08-03] MEDS: medroxyPROGESTERone 5 MG TABLET PO SCH (09:14)
[2017-08-03] MEDS: MAGNESIUM HYDROXIDE 2,400 MG/30 ML ORAL.SUSP. PO PRN (11:49)
[2017-08-03 16:07] VITALS: BP 123/61
[2017-08-03] MEDS: traZODone 50 MG TABLET. PO SCH (19:43)
[2017-08-03] MEDS: MELATONIN 3 MG TABLET PO SCH (19:43)
[2017-08-03] MEDS: QUEtiapine 50 MG TABLET. PO SCH (19:44)
--- NOTE | 2017-08-03 20:57 | PDOC ---
Exam Note: Adriano Note: Please also refer to the separate dictated note~for this date of service dictated separately.~Patient seen individually. Discussed the patient with Nursing staff reviewed the chart.~Reviewed interim history and current functioning. Reviewed vital signs,~Labs/ Radiology~and current medications noted below. Continue current treatment with the changes noted in the dictated addendum note Assessment: Vital Signs: Vital Signs Date Time Temp Pulse Resp B/P (MAP) Pulse Ox O2 Delivery O2 Flow Rate FiO2 08/03/17 19:44 55 123/61 08/03/17 16:07 98.6 16 98 07/29/17 20:08 Room Air I&O Intake and Output 08/03/17 07:00 Intake Total 2080 ml Balance 2080 ml Intake Oral 2080 ml # Bowel Movements 2 Labs: Laboratory Tests Test 08/03/17 07:23 08/03/17 07:28 08/03/17 11:54 08/03/17 16:51 White Blood Count 6.4 x10^3/uL (4.0-11.0) Red Blood Count 4.07 x10^6/uL (4.30-5.70) L Hemoglobin 12.6 g/dL (13.0-17.5) L Hematocrit 36.9 % (39.0-53.0) L Mean Corpuscular Volume 91 fL (79-100) Mean Corpuscular Hemoglobin 31 pg (25-35) Mean Corpuscular Hemoglobin Concent 34 g/dL (31-37) Red Cell Distribution Width 14.7 % (11.5-14.5) H Platelet Count 129 x10^3/uL (140-400) L Neutrophils (%) (Auto) 63 % (31-73) Lymphocytes (%) (Auto) 26 % (24-48) Monocytes (%) (Auto) 8 % (0-9) Eosinophils (%) (Auto) 3 % (0-3) Basophils (%) (Auto) 0 % (0-3) Neutrophils # (Auto) 4.0 x10^3uL (1.8-7.7) Lymphocytes # (Auto) 1.7 x10^3/uL (1.0-4.8) Monocytes # (Auto) 0.5 x10^3/uL (0.0-1.1) Eosinophils # (Auto) 0.2 x10^3/uL (0.0-0.7) Basophils # (Auto) 0.0 x10^3/uL (0.0-0.2) Sodium Level 141 mmol/L (136-145) Potassium Level 4.0 mmol/L (3.5-5.1) Chloride Level 107 mmol/L (98-107) Carbon Dioxide Level 26 mmol/L (21-32) Anion Gap 8 (6-14) Blood Urea Nitrogen 12 mg/dL (8-26) Creatinine 0.8 mg/dL (0.7-1.3) Estimated GFR (Cockcroft-Gault) 95.0 BUN/Creatinine Ratio 15 (6-20) Glucose Level 179 mg/dL (70-99) H Calcium Level 8.5 mg/dL (8.5-10.1) Magnesium Level 2.0 mg/dL (1.8-2.4) Total Bilirubin 0.3 mg/dL (0.2-1.0) Aspartate Amino Transferase (AST) 10 U/L (15-37) L Alanine Aminotransferase (ALT) 28 U/L (16-63) Alkaline Phosphatase 68 U/L (46-116) Total Protein 6.4 g/dL (6.4-8.2) Albumin 3.0 g/dL (3.4-5.0) L Albumin/Globulin Ratio 0.9 (1.0-1.7) L Valproic Acid Level 16 mcg/mL (50-100) L Valproic Acid Last Dose Date 08/02/17 Valproic Acid Last Dose Time 2100 Glucose (Fingerstick) 156 mg/dL (70-99) H 131 mg/dL (70-99) H 128 mg/dL (70-99) H Test 08/03/17 19:14 Glucose (Fingerstick) 132 mg/dL (70-99) H Current Medications: Meds: Current Medications Olanzapine (ZyPREXA) 5 mg QHS PO Last administered on 07/28/17at 20:43; Start at 21:00; Stop 07/29/17 at 18:42; Status DC Gabapentin (Neurontin) 100 mg TID PO Last administered on 08/03/17at 19:44; Start 07/28/17 at 21:00 Metoprolol Tartrate (Lopressor) 100 mg BID PO Last administered on 08/03/17 19 :44; Start 07/28/17 at 21:00 Insulin Detemir (Levemir) 30 units BID SQ Last administered on 08/03/17 19:45 ; Start 07/28/17 at 21:00 Lisinopril (Prinivil) 20 mg BID PO Last administered on 08/03/17 19:44; Start 07/28/17 at 21:00 Insulin Aspart (NovoLOG) 0-7 UNITS TIDAC SQ Last administered on 08/03/17at 07: 30; Start 07/29/17 at 11:30 Dextrose 12.5 gm PRN Q15MIN PRN IV SEE COMMENTS; Start 07/29/17 at 09:15 Nicotine Polacrilex (Nicorette Gum) 2 mg PRN Q2HR PRN BC SMOKING CESSATION Last administered on 08/02/17 09:24; Start 07/29/17 at 10:45 Folic Acid (Folic Acid) 1 mg DAILY PO Last administered on 08/03/17 09:11; Start 07/30/17 at 09:00 Insulin Aspart (NovoLOG) 15 units TIDAC SQ Last administered on 08/03/17 17:45 ; Start 07/29/17 at 16:30 Thiamine HCl (Vitamin B-1) 100 mg DAILY PO Last administered on 08/03/17 09:11 ; Start 07/30/17 at 09:00 Quetiapine Fumarate (SEROquel) 50 mg HS PO Last administered on 08/03/17 19:44 ; Start 07/29/17 at 21:00 Medroxyprogesterone Acetate (Provera) 2.5 mg DAILY PO Last administered on 08/01 07:25; Start 07/30/17 at 09:00; Stop 08/02/17 at 08:59; Status DC Olanzapine (ZyPREXA ZYDIS) 2.5 mg PRN Q2HR PRN PO PSYCHOSIS Last administered on 08/01/17 13:15; Start 07/29/17 at 18:45 Divalproex Sodium (Depakote Sprinkles) 125 mg TID PO Last administered on 13:11; Start 07/30/17 at 14:00; Stop 08/03/17 at 18:52; Status DC Medroxyprogesterone Acetate (Provera) 5 mg DAILY PO Last administered on 07:54; Start 08/02/17 at 09:00; Stop 08/02/17 at 21:43; Status DC Trazodone HCl (Desyrel) 50 mg QHS PO Last administered on 08/03/17 19:43; Start 07/31/17 at 21:00 Trazodone HCl (Desyrel) 50 mg PRN QHS PRN PO INSOMNIA Last administered on 08/03 01:51; Start 07/31/17 at 18:15 Magnesium Hydroxide (Milk Of Magnesia) 2,400 mg PRN DAILY PRN PO CONSTIPATION Last administered on 08/03/17 11:49; Start 08/02/17 at 19:45 Medroxyprogesterone Acetate (Provera) 7.5 mg DAILY PO Last administered on 08/03 09:14; Start 08/03/17 at 09:00 Divalproex Sodium (Depakote Sprinkles) 250 mg TID PO Last administered on 19:43; Start 08/03/17 at 21:00 Melatonin 3 mg QHS PO Last administered on 08/03/17 19:43; Start 08/03/17 at 21:00 Active Scripts Active Reported Thiamine Hcl 100 Mg Tablet 100 Mg PO DAILY Olanzapine 5 Mg Tablet 1 Tab PO QHS Folic Acid 1 Mg Tablet 1 Tab PO DAILY Lovenox (Enoxaparin Sodium) 40 Mg/0.4 Ml Disp.syrin 0.4 Ml SQ DAILY Lisinopril 40 Mg Tablet 20 Mg PO BID Novolog Flexpen (Insulin Aspart) 100 Unit/1 Ml Insuln.pen 0-7 Unit SQ TIDAC Novolog Flexpen (Insulin Aspart) 100 Unit/1 Ml Insuln.pen 15 Unit SQ TIDAC Metoprolol Tartrate 25 Mg Tablet 100 Mg PO BID Lantus Solostar (Insulin Glargine,Hum.rec.anlog) 100 Unit/1 Ml Insuln.pen 30 Unit SQ BID Gabapentin 100 Mg Capsule 100 Mg PO TID I have reviewed the current psychotropics carefully including drug interactions. Risk benefit ratio favors no change other than as noted in my dictated progress note. Diagnosis: Problems: (1) Anxiety disorder (2) Impulse control disorder (3) Bipolar affective disorder, mixed (4) Dementia, vascular, with delusions (5) Dementia with behavioral disturbance LIZ DIANE MD Aug 03, 2017 20:57
--- NOTE | 2017-08-03 22:45 | PN ---
DATE: 08/01/2017 This is a late entry for 08/01/2017 covers elements not covered in my initial note of 08/01/2017. SUBJECTIVE: I met with the patient in the evening of 08/01/2017. The patient had a difficult day, has been belligerent, swearing at staff over lunch time because there was not enough meat on his tray. He has been given larger portions to help compensate. Zyprexa was started p.r.n. Slept poorly the night before. REVIEW OF SYSTEMS: No CV, , pulmonary, eye, ENT system symptoms on review. Gait unsteady. MENTAL STATUS EXAM: Oriented to himself and situation. Speech coherent, has some latency. Abstraction fair, computation impaired, language function intact, attention span short. Mood and affect somewhat labile. LABORATORY DATA: Reviewed. IMPRESSION: Schizoaffective disorder, bipolar type, major neurocognitive disorder, early Alzheimer, vascular with delusion, depression. He still has some sexually inappropriate comments and behaviors. PLAN: Increase Provera to 5 mg daily, may gradually increase to 7.5 mg. Continue Seroquel along with trazodone. Adjust Depakote to reach a therapeutic level. LIZ DIANE MD DR: MATILDA/james JOB#: [id number] / [id number]
--- NOTE | 2017-08-03 23:25 | PN ---
DATE: 08/02/2017 PSYCHIATRIC PROGRESS NOTE This is a late entry for 08/02/2017, covers elements not covered in my initial note of 08/02/2017. SUBJECTIVE: I met with the patient in the evening of 08/02/2017. The patient has been lying in bed with his head down, refusing to get up to take his medications. He has been sexually inappropriate with nursing staff at times making lewd gestures and comments, especially when he has been given a shower. REVIEW OF SYSTEMS: Ambulation impaired with walker. No CV, , pulmonary, eye system symptoms on review. MENTAL STATUS EXAM: Oriented to himself and situation. Speech is coherent, has some latency. Abstraction fair, computation impaired, language function intact, attention span short. Mood and affect somewhat withdrawn. LABORATORY DATA: Reviewed. 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 Rest unchanged. PLAN: Increase Provera to 7.5 mg daily. Continue rest of the psychotropics mentioned in my initial note. Check valproic acid level on 08/03/2017. Adjust Depakote thereafter to reach a therapeutic level. MAN Newton DIANE MD DR: MATILDA/james JOB#: [id number] / [id number]
[2017-08-04] MEDS: traZODone 50 MG TABLET. PO PRN (01:05)
[2017-08-04] MEDS: NICOTINE POLACRILEX GUM 2 MG GUM. BC PRN (02:08)
[2017-08-04 06:03] VITALS: BP 137/64
[2017-08-04] MEDS: INSULIN ASPART 300 UNITS/3 ML INSULN.PEN SQ SCH ×6 (07:30→17:17)
[2017-08-04] MEDS: FOLIC ACID 1 MG TABLET PO SCH (07:47)
[2017-08-04] MEDS: DIVALPROEX 125 MG CAP.SPRINK PO SCH ×3 (07:47→20:30)
[2017-08-04] MEDS: THIAMINE 100 MG TABLET. PO SCH (07:47)
[2017-08-04] MEDS: GABAPENTIN 100 MG CAPSULE. PO SCH ×3 (07:48→20:30)
[2017-08-04] MEDS: INSULIN DETEMIR 300 UNITS/3 ML INSULN.PEN. SQ SCH ×2 (07:50→20:32)
[2017-08-04 07:55] VITALS: BP 131/60
[2017-08-04] MEDS: LISINOPRIL 20 MG TABLET PO SCH ×2 (07:56→20:30)
[2017-08-04] MEDS: METOPROLOL TART IMMED RELEASE 50 MG TABLET PO SCH ×2 (07:56→20:31)
[2017-08-04] MEDS: medroxyPROGESTERone 5 MG TABLET PO SCH (08:01)
--- NOTE | 2017-08-04 15:26 | RAD ---
Bilateral lower extremity venous ultrasound, 08/04/2017: History: Bilateral leg swelling Duplex evaluation of the deep veins in the lower extremities was performed including grayscale, color-flow and spectral Doppler analysis. The femoral and popliteal veins demonstrate normal compressibility and normal responses to distal augmentation maneuvers. Color imaging of those vessels shows no evidence of intraluminal clot. The visualized deep veins in both calves are patent. IMPRESSION: There is no sonographic evidence of deep vein thrombosis in either lower extremity.
[2017-08-04 16:08] VITALS: BP 161/81
--- NOTE | 2017-08-04 20:04 | PN ---
DATE: 08/03/2017 PSYCHIATRIC PROGRESS NOTE This late entry 08/03/2017 covers elements, not covered in my initial note of 08/03/2017. I met with the patient in the evening of 08/03/2017. Per nursing report, the patient slept 2-1/2 hours previous evening, talking to his roommate much into the night, at times sexually inappropriate with nursing staff. REVIEW OF SYSTEMS: Ambulation impaired with walker. No CV, , pulmonary, eye, ENT system symptoms on review. MENTAL STATUS EXAM: Oriented to himself and situation. Speech coherent, abstraction fair, computation impaired, language function intact, attention span short. Mood and affect remain somewhat labile, little grandiose at times. During the individual visit, I addressed his sexually inappropriate comments at length and he showed some insight stating he would stop it. LABORATORY DATA: Reviewed. Valproic acid level is 16. IMPRESSION: Bipolar 1 disorder, mixed with psychotic features; major neurocognitive disorder, early Alzheimer, vascular with delusions. PLAN: Increase Depakote Sprinkles from 125 three times a day to 250 three times a day. Check CBC, CMP, valproic acid level in 3 days. Rest unchanged per initial note, start melatonin 3 mg at bedtime. Plan to reach therapeutic level and Depakote and then decide thereafter what to do next from the psychotropics. MAN Newton DIANE MD DR: MATILDA/james JOB#: [id number] / [id number]
[2017-08-04] MEDS: MELATONIN 3 MG TABLET PO SCH (20:30)
[2017-08-04] MEDS: traZODone 50 MG TABLET. PO SCH (20:30)
[2017-08-04] MEDS: QUEtiapine 50 MG TABLET. PO SCH (20:30)
--- NOTE | 2017-08-04 20:49 | PDOC ---
Exam Note: Adriano Note: Please also refer to the separate dictated note~for this date of service dictated separately.~Patient seen individually. Discussed the patient with Nursing staff reviewed the chart.~Reviewed interim history and current functioning. Reviewed vital signs,~Labs/ Radiology~and current medications noted below. Continue current treatment with the changes noted in the dictated addendum note Assessment: Vital Signs: Vital Signs Date Time Temp Pulse Resp B/P (MAP) Pulse Ox O2 Delivery O2 Flow Rate FiO2 08/04/17 20:31 82 161/81 08/04/17 16:08 98.3 20 98 08/04/17 07:55 Room Air I&O Intake and Output 08/04/17 07:00 Intake Total 1440 ml Balance 1440 ml Intake Oral 1440 ml # Bowel Movements 1 Labs: Laboratory Tests Test 08/04/17 07:28 08/04/17 11:24 08/04/17 16:38 08/04/17 19:39 Glucose (Fingerstick) 108 mg/dL (70-99) H 180 mg/dL (70-99) H 202 mg/dL (70-99) H 195 mg/dL (70-99) H Current Medications: Meds: Current Medications Olanzapine (ZyPREXA) 5 mg QHS PO Last administered on 07/28/17at 20:43; Start at 21:00; Stop 07/29/17 at 18:42; Status DC Gabapentin (Neurontin) 100 mg TID PO Last administered on 08/04/17at 20:30; Start 07/28/17 at 21:00 Metoprolol Tartrate (Lopressor) 100 mg BID PO Last administered on 08/04/17at 20 :31; Start 07/28/17 at 21:00 Insulin Detemir (Levemir) 30 units BID SQ Last administered on 08/04/17at 20:32 ; Start 07/28/17 at 21:00 Lisinopril (Prinivil) 20 mg BID PO Last administered on 08/04/17at 20:30; Start 07/28/17 at 21:00 Insulin Aspart (NovoLOG) 0-7 UNITS TIDAC SQ Last administered on 08/04/17at 17: 16; Start 07/29/17 at 11:30 Dextrose 12.5 gm PRN Q15MIN PRN IV SEE COMMENTS; Start 07/29/17 at 09:15 Nicotine Polacrilex (Nicorette Gum) 2 mg PRN Q2HR PRN BC SMOKING CESSATION Last administered on 08/04/17at 02:08; Start 07/29/17 at 10:45 Folic Acid (Folic Acid) 1 mg DAILY PO Last administered on 08/04/17 07:47; Start 07/30/17 at 09:00 Insulin Aspart (NovoLOG) 15 units TIDAC SQ Last administered on 08/04/17at 17:17 ; Start 07/29/17 at 16:30 Thiamine HCl (Vitamin B-1) 100 mg DAILY PO Last administered on 08/04/17 07:47 ; Start 07/30/17 at 09:00 Quetiapine Fumarate (SEROquel) 50 mg HS PO Last administered on 08/04/17at 20:30 ; Start 07/29/17 at 21:00 Medroxyprogesterone Acetate (Provera) 2.5 mg DAILY PO Last administered on 08/01at 07:25; Start 07/30/17 at 09:00; Stop 08/02/17 at 08:59; Status DC Olanzapine (ZyPREXA ZYDIS) 2.5 mg PRN Q2HR PRN PO PSYCHOSIS Last administered on 08/04/17 01:05; Start 07/29/17 at 18:45 Divalproex Sodium (Depakote Sprinkles) 125 mg TID PO Last administered on at 13:11; Start 07/30/17 at 14:00; Stop 08/03/17 at 18:52; Status DC Medroxyprogesterone Acetate (Provera) 5 mg DAILY PO Last administered on at 07:54; Start 08/02/17 at 09:00; Stop 08/02/17 at 21:43; Status DC Trazodone HCl (Desyrel) 50 mg QHS PO Last administered on 08/04/17at 20:30; Start 07/31/17 at 21:00 Trazodone HCl (Desyrel) 50 mg PRN QHS PRN PO INSOMNIA Last administered on 08/04at 01:05; Start 07/31/17 at 18:15 Magnesium Hydroxide (Milk Of Magnesia) 2,400 mg PRN DAILY PRN PO CONSTIPATION Last administered on 08/03/17at 11:49; Start 08/02/17 at 19:45 Medroxyprogesterone Acetate (Provera) 7.5 mg DAILY PO Last administered on 08/04at 08:01; Start 08/03/17 at 09:00; Stop 08/07/17 at 08:59 Divalproex Sodium (Depakote Sprinkles) 250 mg TID PO Last administered on 20:30; Start 08/03/17 at 21:00 Melatonin 3 mg QHS PO Last administered on 08/04/17at 20:30; Start 08/03/17 at 21:00 Nystatin (Nystop) 1 danielle BID TP ; Start 08/04/17 at 21:00 Medroxyprogesterone Acetate (Provera) 10 mg DAILY PO ; Start 08/07/17 at 09:00 Active Scripts Active Reported Thiamine Hcl 100 Mg Tablet 100 Mg PO DAILY Olanzapine 5 Mg Tablet 1 Tab PO QHS Folic Acid 1 Mg Tablet 1 Tab PO DAILY Lovenox (Enoxaparin Sodium) 40 Mg/0.4 Ml Disp.syrin 0.4 Ml SQ DAILY Lisinopril 40 Mg Tablet 20 Mg PO BID Novolog Flexpen (Insulin Aspart) 100 Unit/1 Ml Insuln.pen 0-7 Unit SQ TIDAC Novolog Flexpen (Insulin Aspart) 100 Unit/1 Ml Insuln.pen 15 Unit SQ TIDAC Metoprolol Tartrate 25 Mg Tablet 100 Mg PO BID Lantus Solostar (Insulin Glargine,Hum.rec.anlog) 100 Unit/1 Ml Insuln.pen 30 Unit SQ BID Gabapentin 100 Mg Capsule 100 Mg PO TID I have reviewed the current psychotropics carefully including drug interactions. Risk benefit ratio favors no change other than as noted in my dictated progress note. Diagnosis: Problems: (1) Anxiety disorder (2) Impulse control disorder (3) Bipolar affective disorder, mixed (4) Dementia, vascular, with delusions (5) Dementia with behavioral disturbance LIZ DIANE MD Aug 04, 2017 20:49
[2017-08-04] MEDS: NYSTATIN TOPICAL POWDER 15GM BOTTLE. TP SCH (21:00)
--- NOTE | 2017-08-04 21:43 | PN ---
DATE: 08/04/2017 SUBJECTIVE: The patient is a 71-year-old male patient, who was admitted on 07/28/2017 as he was referred from [facility] Emergency Room where he presented from [facility] he had been living in since he is homeless. He is having change in mental status, found to have hyperglycemia, blood sugar in the 700s, noncompliant with his medication with confusion, agitation, aggression. At [facility], he was swinging at nursing staff, ripping out IV lines, sexually inappropriate, not cooperative with cares. The patient was here before with diagnoses of bipolar disorder and major neurocognitive disorder. He apparently was in a [place] [facility]. From there, he left on his own accord and was homeless, noncompliant with all treatments resulting in going back to [facility]. Apparently, the patient has been doing well. The nursing staff; however, noted that he has bilateral lower extremity edema. Unfortunately, I have not seen him initially when he arrived here. The patient was sleeping, refusing to answer my questions; however, he does not seem to be in any respiratory distress, in fact he was lying flat in bed, in no apparent distress. PHYSICAL EXAMINATION: GENERAL: When I examined him, he looked well and was clearly in no apparent respiratory distress, pale, no jaundice, cyanosis, or thyromegaly. No jugular venous distention. No limb edema. VITAL SIGNS: His heart rate was 59, blood pressure was 131/60, temperature 97.5, respiratory rate 20, and oxygen saturation was 97% on room air. HEAD, EYES, EARS, NOSE AND THROAT: Showed normocephalic, atraumatic. NECK: Supple. HEART: Showed normal first and second heart sounds. No gallop, rub or murmur. CHEST: Was clear to auscultation. No crepitation or rhonchi. ABDOMEN: Was distended, soft, nontender. NEUROLOGIC: He was sleepy, but arousable. All cranial nerves are intact. He moves extremities without difficulty, ambulates with a walker. EXTREMITIES: Examination of both lower extremities shows marked bilateral lower extremity edema; however, there is no evidence of any erythema or tenderness. LABORATORY DATA: His lab work as of yesterday showed a serum sodium of 141, potassium 4, chloride 107, bicarbonate 26, anion gap of 8, BUN 12, creatinine was 0.8, estimated GFR was 95 mL per minute. His glucose was 179, calcium was 8.5, magnesium was 2. Total bilirubin, AST, ALT, alkaline phosphatase were normal. Total protein was 6.4, albumin was 3. His vitamin B12 was 323 and 25-hydroxy vitamin D3 was 32.5. His serum iron 120, TIBC was 343, and percent saturation was 35. His hemoglobin A1c was 9.5%. His white cell count was 6400, hemoglobin 12.6, hematocrit 36, MCV 91, and platelet count of 129,000. IMPRESSION: In summary, this is a 71-year-old male patient whom I have asked to see because of marked swelling of his extremities. He carries a diagnosis of congestive heart failure, although clinically he is lying flat comfortably, in no apparent distress. His serum albumin is only 3, which obviously might be because of nephrotic syndrome that can explain the hypoalbuminemia. PLAN: My plan is to arrange for bilateral venous Doppler ultrasound, also do a 24-hour urine collection and decide the further management accordingly. LIGIA HORTA MD DR: ROLANDO/james JOB#: [id number] / [id number]
[2017-08-05 06:01] VITALS: BP 156/73
[2017-08-05] MEDS: INSULIN ASPART 300 UNITS/3 ML INSULN.PEN SQ SCH ×7 (07:30→17:44)
[2017-08-05] MEDS: LISINOPRIL 20 MG TABLET PO SCH ×3 (08:53→19:46)
[2017-08-05] MEDS: medroxyPROGESTERone 5 MG TABLET PO SCH ×2 (08:53→09:45)
[2017-08-05] MEDS: DIVALPROEX 125 MG CAP.SPRINK PO SCH ×4 (08:54→19:45)
[2017-08-05] MEDS: THIAMINE 100 MG TABLET. PO SCH ×2 (08:56→09:45)
[2017-08-05] MEDS: NYSTATIN TOPICAL POWDER 15GM BOTTLE. TP SCH ×3 (08:56→19:55)
[2017-08-05] MEDS: GABAPENTIN 100 MG CAPSULE. PO SCH ×4 (08:56→19:46)
[2017-08-05] MEDS: FOLIC ACID 1 MG TABLET PO SCH ×2 (08:56→09:45)
[2017-08-05] MEDS: METOPROLOL TART IMMED RELEASE 50 MG TABLET PO SCH ×3 (08:56→19:46)
[2017-08-05] MEDS: INSULIN DETEMIR 300 UNITS/3 ML INSULN.PEN. SQ SCH ×2 (09:00→19:53)
[2017-08-05 16:26] VITALS: BP 165/71
[2017-08-05] MEDS: NICOTINE POLACRILEX GUM 2 MG GUM. BC PRN (18:23)
[2017-08-05] MEDS: traZODone 50 MG TABLET. PO SCH (19:45)
[2017-08-05] MEDS: QUEtiapine 50 MG TABLET. PO SCH (19:46)
[2017-08-05] MEDS: MELATONIN 3 MG TABLET PO SCH (19:47)
--- NOTE | 2017-08-05 20:57 | PDOC ---
Exam Note: Adriano Note: Please also refer to the separate dictated note~for this date of service dictated separately.~Patient seen individually. Discussed the patient with Nursing staff reviewed the chart.~Reviewed interim history and current functioning. Reviewed vital signs,~Labs/ Radiology~and current medications noted below. Continue current treatment with the changes noted in the dictated addendum note Assessment: Vital Signs: Vital Signs Date Time Temp Pulse Resp B/P (MAP) Pulse Ox O2 Delivery O2 Flow Rate FiO2 08/05/17 19:46 74 165/71 08/05/17 16:26 98.8 18 98 08/04/17 07:55 Room Air I&O Intake and Output 08/05/17 07:00 Intake Total 1320 ml Output Total 500 ml Balance 820 ml Intake Oral 1320 ml Output Urine Total 500 ml # Voids 1 Labs: Laboratory Tests Test 08/05/17 07:23 08/05/17 11:11 08/05/17 16:55 08/05/17 19:09 Glucose (Fingerstick) 78 mg/dL (70-99) 179 mg/dL (70-99) H 216 mg/dL (70-99) H 186 mg/dL (70-99) H Current Medications: Meds: Current Medications Olanzapine (ZyPREXA) 5 mg QHS PO Last administered on 07/28/17 20:43; Start at 21:00; Stop 07/29/17 at 18:42; Status DC Gabapentin (Neurontin) 100 mg TID PO Last administered on 08/05/17at 19:46; Start 07/28/17 at 21:00 Metoprolol Tartrate (Lopressor) 100 mg BID PO Last administered on 08/05/17at 19 :46; Start 07/28/17 at 21:00 Insulin Detemir (Levemir) 30 units BID SQ Last administered on 08/05/17 19:53 ; Start 07/28/17 at 21:00 Lisinopril (Prinivil) 20 mg BID PO Last administered on 08/05/17 19:46; Start 07/28/17 at 21:00 Insulin Aspart (NovoLOG) 0-7 UNITS TIDAC SQ Last administered on 08/05/17at 17: 44; Start 07/29/17 at 11:30 Dextrose 12.5 gm PRN Q15MIN PRN IV SEE COMMENTS; Start 07/29/17 at 09:15 Nicotine Polacrilex (Nicorette Gum) 2 mg PRN Q2HR PRN BC SMOKING CESSATION Last administered on 08/05/17 18:23; Start 07/29/17 at 10:45 Folic Acid (Folic Acid) 1 mg DAILY PO Last administered on 08/04/17 07:47; Start 07/30/17 at 09:00 Insulin Aspart (NovoLOG) 15 units TIDAC SQ Last administered on 08/05/17at 17:44 ; Start 07/29/17 at 16:30 Thiamine HCl (Vitamin B-1) 100 mg DAILY PO Last administered on 08/04/17 07:47 ; Start 07/30/17 at 09:00 Quetiapine Fumarate (SEROquel) 50 mg HS PO Last administered on 08/05/17 19:46 ; Start 07/29/17 at 21:00 Medroxyprogesterone Acetate (Provera) 2.5 mg DAILY PO Last administered on 08/01 07:25; Start 07/30/17 at 09:00; Stop 08/02/17 at 08:59; Status DC Olanzapine (ZyPREXA ZYDIS) 2.5 mg PRN Q2HR PRN PO PSYCHOSIS Last administered on 08/05/17at 11:32; Start 07/29/17 at 18:45 Divalproex Sodium (Depakote Sprinkles) 125 mg TID PO Last administered on at 13:11; Start 07/30/17 at 14:00; Stop 08/03/17 at 18:52; Status DC Medroxyprogesterone Acetate (Provera) 5 mg DAILY PO Last administered on 07:54; Start 08/02/17 at 09:00; Stop 08/02/17 at 21:43; Status DC Trazodone HCl (Desyrel) 50 mg QHS PO Last administered on 08/05/17at 19:45; Start 07/31/17 at 21:00 Trazodone HCl (Desyrel) 50 mg PRN QHS PRN PO INSOMNIA Last administered on 08/04 01:05; Start 07/31/17 at 18:15 Magnesium Hydroxide (Milk Of Magnesia) 2,400 mg PRN DAILY PRN PO CONSTIPATION Last administered on 08/03/17at 11:49; Start 08/02/17 at 19:45 Medroxyprogesterone Acetate (Provera) 7.5 mg DAILY PO Last administered on 08/04at 08:01; Start 08/03/17 at 09:00; Stop 08/07/17 at 08:59 Divalproex Sodium (Depakote Sprinkles) 250 mg TID PO Last administered on at 19:45; Start 08/03/17 at 21:00 Melatonin 3 mg QHS PO Last administered on 08/05/17at 19:47; Start 08/03/17 at 21:00 Nystatin (Nystop) 1 danielle BID TP Last administered on 08/05/17at 19:55; Start at 21:00 Medroxyprogesterone Acetate (Provera) 10 mg DAILY PO ; Start 08/07/17 at 09:00 Buspirone HCl (Buspar) 5 mg 0900,1300,1700 PO ; Start 08/06/17 at 09:00 Active Scripts Active Reported Thiamine Hcl 100 Mg Tablet 100 Mg PO DAILY Olanzapine 5 Mg Tablet 1 Tab PO QHS Folic Acid 1 Mg Tablet 1 Tab PO DAILY Lovenox (Enoxaparin Sodium) 40 Mg/0.4 Ml Disp.syrin 0.4 Ml SQ DAILY Lisinopril 40 Mg Tablet 20 Mg PO BID Novolog Flexpen (Insulin Aspart) 100 Unit/1 Ml Insuln.pen 0-7 Unit SQ TIDAC Novolog Flexpen (Insulin Aspart) 100 Unit/1 Ml Insuln.pen 15 Unit SQ TIDAC Metoprolol Tartrate 25 Mg Tablet 100 Mg PO BID Lantus Solostar (Insulin Glargine,Hum.rec.anlog) 100 Unit/1 Ml Insuln.pen 30 Unit SQ BID Gabapentin 100 Mg Capsule 100 Mg PO TID I have reviewed the current psychotropics carefully including drug interactions. Risk benefit ratio favors no change other than as noted in my dictated progress note. Diagnosis: Problems: (1) Anxiety disorder (2) Impulse control disorder (3) Bipolar affective disorder, mixed (4) Dementia, vascular, with delusions (5) Dementia with behavioral disturbance LIZ DIANE MD Aug 05, 2017 20:57
--- NOTE | 2017-08-05 21:42 | PN ---
DATE: 08/04/2017 This late entry 08/04/2017 covers elements not covered in my initial note 08/04/2017. Met with the patient evening of 08/04/2017. SUBJECTIVE: The patient slept 3-1/2 hours previous evening. He was somewhat agitated in the morning during shower time. He is oriented to the year and date of , but sexually inappropriate with a home theatre technician who would come to do the Doppler of his lower extremity. The Doppler was negative, however. REVIEW OF SYSTEMS: Ambulation impaired with walker. No CV, , pulmonary, eye, ENT system symptoms on review. MENTAL STATUS EXAM: Oriented to himself and situation. Speech is coherent, has some latency. Abstraction fair, computation impaired, language function intact. Attention span short. No suicidal or homicidal ideation. During the individual visit, we discussed at length his sexually inappropriate behavior, way to improving impulse control and moderate and eliminate this. LABORATORY DATA: Reviewed. IMPRESSION: Bipolar 1 disorder, mixed. Major neurocognitive disorder, early, secondary to vascular and alcohol with delusions. Rest unchanged. PLAN: Continue psychotropics mentioned in my initial note. Increase Provera to 10 mg a day after he has been on 7.5 mg for 3 days. MAN Newton DIANE MD DR: MATILDA/james JOB#: [id number] / [id number]
[2017-08-06 05:41] VITALS: BP 144/60
[2017-08-06] MEDS: INSULIN ASPART 300 UNITS/3 ML INSULN.PEN SQ SCH ×6 (07:30→17:12)
[2017-08-06 08:04] LABS: BASO % 1 % (0-3); EOS # 0.2 x10^3/uL (0.0-0.7); EOS % 3 % (0-3); HEMATOCRIT 36.5 % (39.0-53.0); HEMOGLOBIN 12.6 g/dL (13.0-17.5); LYMPH # 1.6 x10^3/uL (1.0-4.8); LYMPH % 28 % (24-48); MEAN CORPUSCULAR HEMOGLOBIN 31 pg (25-35); MEAN CORPUSCULAR HGB CONC 35 g/dL (31-37); MEAN CORPUSCULAR VOLUME 91 fL (79-100); MONO # 0.3 x10^3/uL (0.0-1.1); MONO % 6 % (0-9); NEUT # 3.6 x10^3uL (1.8-7.7); NEUT % 63 % (31-73); PLATELET COUNT 132 x10^3/uL (140-400); RED BLOOD COUNT 4.03 x10^6/uL (4.30-5.70); RED CELL DISTRIBUTION WIDTH 14.5 % (11.5-14.5); WHITE BLOOD COUNT 5.7 x10^3/uL (4.0-11.0)
[2017-08-06 08:24] LABS: ALBUMIN/GLOBULIN RATIO 0.9 (1.0-1.7); ALK PHOS 59 U/L (46-116); ALT (SGPT) 21 U/L (16-63); ANION GAP 9 (6-14); AST (SGOT) 11 U/L (15-37); BLOOD UREA NITROGEN 17 mg/dL (8-26); BUN/CREATININE RATIO 19 (6-20); CALCIUM 8.8 mg/dL (8.5-10.1); CARBON DIOXIDE 25 mmol/L (21-32); CHLORIDE 109 mmol/L (98-107); CREATININE 0.9 mg/dL (0.7-1.3); GFR 82.7; GLUCOSE 92 mg/dL (70-99); POTASSIUM 3.8 mmol/L (3.5-5.1); SODIUM 143 mmol/L (136-145); TOTAL BILIRUBIN 0.4 mg/dL (0.2-1.0); TOTAL PROTEIN 6.5 g/dL (6.4-8.2); VAL ACID 24 mcg/mL (50-100)
[2017-08-06] MEDS: DIVALPROEX 125 MG CAP.SPRINK PO SCH ×3 (08:48→20:30)
[2017-08-06] MEDS: medroxyPROGESTERone 5 MG TABLET PO SCH (08:48)
[2017-08-06] MEDS: LISINOPRIL 20 MG TABLET PO SCH ×2 (08:48→20:29)
[2017-08-06] MEDS: GABAPENTIN 100 MG CAPSULE. PO SCH ×3 (08:48→20:30)
[2017-08-06] MEDS: FOLIC ACID 1 MG TABLET PO SCH (08:49)
[2017-08-06] MEDS: METOPROLOL TART IMMED RELEASE 50 MG TABLET PO SCH ×2 (08:49→20:30)
[2017-08-06] MEDS: THIAMINE 100 MG TABLET. PO SCH (08:49)
[2017-08-06] MEDS: NICOTINE POLACRILEX GUM 2 MG GUM. BC PRN ×2 (08:50→13:33)
[2017-08-06] MEDS: busPIRone 5 MG TABLET. PO SCH ×3 (08:50→17:11)
[2017-08-06] MEDS: INSULIN DETEMIR 300 UNITS/3 ML INSULN.PEN. SQ SCH ×2 (08:51→20:42)
[2017-08-06] MEDS: NYSTATIN TOPICAL POWDER 15GM BOTTLE. TP SCH ×2 (08:52→20:30)
[2017-08-06 16:01] VITALS: BP 154/71
[2017-08-06] MEDS: MAGNESIUM HYDROXIDE 2,400 MG/30 ML ORAL.SUSP. PO PRN (18:26)
[2017-08-06 20:07] LABS: UR PROTEIN 22.5 mg/dL (Not Estab.)
[2017-08-06] MEDS: MELATONIN 3 MG TABLET PO SCH (20:29)
[2017-08-06] MEDS: QUEtiapine 50 MG TABLET. PO SCH (20:30)
[2017-08-06] MEDS: traZODone 50 MG TABLET. PO SCH (20:30)
--- NOTE | 2017-08-06 20:50 | PDOC ---
Exam Note: Adriano Note: Please also refer to the separate dictated note~for this date of service dictated separately.~Patient seen individually. Discussed the patient with Nursing staff reviewed the chart.~Reviewed interim history and current functioning. Reviewed vital signs,~Labs/ Radiology~and current medications noted below. Continue current treatment with the changes noted in the dictated addendum note Assessment: Vital Signs: Vital Signs Date Time Temp Pulse Resp B/P (MAP) Pulse Ox O2 Delivery O2 Flow Rate FiO2 08/06/17 20:30 55 154/71 08/06/17 16:01 98.2 18 100 08/04/17 07:55 Room Air I&O Intake and Output 08/06/17 07:00 Intake Total 720 ml Balance 720 ml Intake Oral 720 ml Labs: Laboratory Tests Test 08/06/17 07:37 08/06/17 07:46 08/06/17 10:30 08/06/17 11:23 White Blood Count 5.7 x10^3/uL (4.0-11.0) Red Blood Count 4.03 x10^6/uL (4.30-5.70) L Hemoglobin 12.6 g/dL (13.0-17.5) L Hematocrit 36.5 % (39.0-53.0) L Mean Corpuscular Volume 91 fL (79-100) Mean Corpuscular Hemoglobin 31 pg (25-35) Mean Corpuscular Hemoglobin Concent 35 g/dL (31-37) Red Cell Distribution Width 14.5 % (11.5-14.5) Platelet Count 132 x10^3/uL (140-400) L Neutrophils (%) (Auto) 63 % (31-73) Lymphocytes (%) (Auto) 28 % (24-48) Monocytes (%) (Auto) 6 % (0-9) Eosinophils (%) (Auto) 3 % (0-3) Basophils (%) (Auto) 1 % (0-3) Neutrophils # (Auto) 3.6 x10^3uL (1.8-7.7) Lymphocytes # (Auto) 1.6 x10^3/uL (1.0-4.8) Monocytes # (Auto) 0.3 x10^3/uL (0.0-1.1) Eosinophils # (Auto) 0.2 x10^3/uL (0.0-0.7) Basophils # (Auto) 0.0 x10^3/uL (0.0-0.2) Sodium Level 143 mmol/L (136-145) Potassium Level 3.8 mmol/L (3.5-5.1) Chloride Level 109 mmol/L (98-107) H Carbon Dioxide Level 25 mmol/L (21-32) Anion Gap 9 (6-14) Blood Urea Nitrogen 17 mg/dL (8-26) Creatinine 0.9 mg/dL (0.7-1.3) Estimated GFR (Cockcroft-Gault) 82.7 BUN/Creatinine Ratio 19 (6-20) Glucose Level 92 mg/dL (70-99) Calcium Level 8.8 mg/dL (8.5-10.1) Total Bilirubin 0.4 mg/dL (0.2-1.0) Aspartate Amino Transferase (AST) 11 U/L (15-37) L Alanine Aminotransferase (ALT) 21 U/L (16-63) Alkaline Phosphatase 59 U/L (46-116) Total Protein 6.5 g/dL (6.4-8.2) Albumin 3.0 g/dL (3.4-5.0) L Albumin/Globulin Ratio 0.9 (1.0-1.7) L Valproic Acid Level 24 mcg/mL (50-100) L Valproic Acid Last Dose Date 08/05/17 Valproic Acid Last Dose Time 0500 Glucose (Fingerstick) 88 mg/dL (70-99) 150 mg/dL (70-99) H Urine Protein 22.5 mg/dL (Not Estab.) Urine Protein 24 Hr Calculated 293 mg/24 hr (30-150) H Test 08/06/17 16:56 08/06/17 19:01 Glucose (Fingerstick) 123 mg/dL (70-99) H 154 mg/dL (70-99) H Current Medications: Meds: Current Medications Olanzapine (ZyPREXA) 5 mg QHS PO Last administered on 07/28/17at 20:43; Start at 21:00; Stop 07/29/17 at 18:42; Status DC Gabapentin (Neurontin) 100 mg TID PO Last administered on 08/06/17at 20:30; Start 07/28/17 at 21:00 Metoprolol Tartrate (Lopressor) 100 mg BID PO Last administered on 08/06/17 20 :30; Start 07/28/17 at 21:00 Insulin Detemir (Levemir) 30 units BID SQ Last administered on 08/06/17 20:42 ; Start 07/28/17 at 21:00 Lisinopril (Prinivil) 20 mg BID PO Last administered on 08/06/17 20:29; Start 07/28/17 at 21:00 Insulin Aspart (NovoLOG) 0-7 UNITS TIDAC SQ Last administered on 08/05/17 17: 44; Start 07/29/17 at 11:30 Dextrose 12.5 gm PRN Q15MIN PRN IV SEE COMMENTS; Start 07/29/17 at 09:15 Nicotine Polacrilex (Nicorette Gum) 2 mg PRN Q2HR PRN BC SMOKING CESSATION Last administered on 08/06/17 13:33; Start 07/29/17 at 10:45 Folic Acid (Folic Acid) 1 mg DAILY PO Last administered on 08/06/17 08:49; Start 07/30/17 at 09:00 Insulin Aspart (NovoLOG) 15 units TIDAC SQ Last administered on 08/06/17 17:12 ; Start 07/29/17 at 16:30 Thiamine HCl (Vitamin B-1) 100 mg DAILY PO Last administered on 08/06/17 08:49 ; Start 07/30/17 at 09:00 Quetiapine Fumarate (SEROquel) 50 mg HS PO Last administered on 08/06/17 20:30 ; Start 07/29/17 at 21:00 Medroxyprogesterone Acetate (Provera) 2.5 mg DAILY PO Last administered on 08/01 07:25; Start 07/30/17 at 09:00; Stop 08/02/17 at 08:59; Status DC Olanzapine (ZyPREXA ZYDIS) 2.5 mg PRN Q2HR PRN PO PSYCHOSIS Last administered on 08/05/17 11:32; Start 07/29/17 at 18:45 Divalproex Sodium (Depakote Sprinkles) 125 mg TID PO Last administered on 13:11; Start 07/30/17 at 14:00; Stop 08/03/17 at 18:52; Status DC Medroxyprogesterone Acetate (Provera) 5 mg DAILY PO Last administered on at 07:54; Start 08/02/17 at 09:00; Stop 08/02/17 at 21:43; Status DC Trazodone HCl (Desyrel) 50 mg QHS PO Last administered on 08/06/17at 20:30; Start 07/31/17 at 21:00 Trazodone HCl (Desyrel) 50 mg PRN QHS PRN PO INSOMNIA Last administered on 08/04at 01:05; Start 07/31/17 at 18:15 Magnesium Hydroxide (Milk Of Magnesia) 2,400 mg PRN DAILY PRN PO CONSTIPATION Last administered on 08/06/17 18:26; Start 08/02/17 at 19:45 Medroxyprogesterone Acetate (Provera) 7.5 mg DAILY PO Last administered on 08/06at 08:48; Start 08/03/17 at 09:00; Stop 08/07/17 at 08:59 Divalproex Sodium (Depakote Sprinkles) 250 mg TID PO Last administered on 08:48; Start 08/03/17 at 21:00; Stop 08/06/17 at 10:54; Status DC Melatonin 3 mg QHS PO Last administered on 08/06/17at 20:29; Start 08/03/17 at 21:00 Nystatin (Nystop) 1 danielle BID TP Last administered on 08/06/17 20:30; Start at 21:00 Medroxyprogesterone Acetate (Provera) 10 mg DAILY PO ; Start 08/07/17 at 09:00 Buspirone HCl (Buspar) 5 mg 0900,1300,1700 PO Last administered on 08/06/17at 17 :11; Start 08/06/17 at 09:00 Divalproex Sodium (Depakote Sprinkles) 375 mg TID PO Last administered on at 20:30; Start 08/06/17 at 14:00 Docusate Calcium (Surfak) 240 mg DAILY PO ; Start 08/07/17 at 09:00 Active Scripts Active Reported Thiamine Hcl 100 Mg Tablet 100 Mg PO DAILY Olanzapine 5 Mg Tablet 1 Tab PO QHS Folic Acid 1 Mg Tablet 1 Tab PO DAILY Lovenox (Enoxaparin Sodium) 40 Mg/0.4 Ml Disp.syrin 0.4 Ml SQ DAILY Lisinopril 40 Mg Tablet 20 Mg PO BID Novolog Flexpen (Insulin Aspart) 100 Unit/1 Ml Insuln.pen 0-7 Unit SQ TIDAC Novolog Flexpen (Insulin Aspart) 100 Unit/1 Ml Insuln.pen 15 Unit SQ TIDAC Metoprolol Tartrate 25 Mg Tablet 100 Mg PO BID Lantus Solostar (Insulin Glargine,Hum.rec.anlog) 100 Unit/1 Ml Insuln.pen 30 Unit SQ BID Gabapentin 100 Mg Capsule 100 Mg PO TID I have reviewed the current psychotropics carefully including drug interactions. Risk benefit ratio favors no change other than as noted in my dictated progress note. Diagnosis: Problems: (1) Anxiety disorder (2) Impulse control disorder (3) Bipolar affective disorder, mixed (4) Dementia, vascular, with delusions (5) Dementia with behavioral disturbance LIZ DIANE MD Aug 06, 2017 20:50
[2017-08-07 06:06] VITALS: BP 153/80
[2017-08-07] MEDS: INSULIN ASPART 300 UNITS/3 ML INSULN.PEN SQ SCH ×6 (07:30→17:03)
[2017-08-07] MEDS: NICOTINE POLACRILEX GUM 2 MG GUM. BC PRN ×2 (08:49→13:47)
[2017-08-07] MEDS: METOPROLOL TART IMMED RELEASE 50 MG TABLET PO SCH ×2 (08:50→20:05)
[2017-08-07] MEDS: busPIRone 5 MG TABLET. PO SCH ×3 (08:50→17:00)
[2017-08-07] MEDS: DOCUSATE CALCIUM 240 MG CAPSULE PO SCH (08:50)
[2017-08-07] MEDS: FOLIC ACID 1 MG TABLET PO SCH (08:50)
[2017-08-07] MEDS: THIAMINE 100 MG TABLET. PO SCH (08:50)
[2017-08-07] MEDS: medroxyPROGESTERone 5 MG TABLET PO SCH (08:50)
[2017-08-07] MEDS: LISINOPRIL 20 MG TABLET PO SCH ×2 (08:51→20:02)
[2017-08-07] MEDS: DIVALPROEX 125 MG CAP.SPRINK PO SCH ×3 (08:51→20:02)
[2017-08-07] MEDS: GABAPENTIN 100 MG CAPSULE. PO SCH ×3 (08:51→20:01)
[2017-08-07] MEDS: NYSTATIN TOPICAL POWDER 15GM BOTTLE. TP SCH ×2 (08:52→20:55)
[2017-08-07] MEDS: INSULIN DETEMIR 300 UNITS/3 ML INSULN.PEN. SQ SCH ×2 (08:52→20:58)
[2017-08-07 16:15] VITALS: BP 147/73
[2017-08-07] MEDS: MELATONIN 3 MG TABLET PO SCH (20:02)
[2017-08-07] MEDS: QUEtiapine 50 MG TABLET. PO SCH (20:02)
[2017-08-07] MEDS: traZODone 50 MG TABLET. PO SCH (20:02)
--- NOTE | 2017-08-07 20:58 | PDOC ---
Exam Note: Adriano Note: Please also refer to the separate dictated note~for this date of service dictated separately.~Patient seen individually. Discussed the patient with Nursing staff reviewed the chart.~Reviewed interim history and current functioning. Reviewed vital signs,~Labs/ Radiology~and current medications noted below. Continue current treatment with the changes noted in the dictated addendum note Assessment: Vital Signs: Vital Signs Date Time Temp Pulse Resp B/P (MAP) Pulse Ox O2 Delivery O2 Flow Rate FiO2 08/07/17 20:05 70 147/73 08/07/17 16:15 98.4 17 100 08/04/17 07:55 Room Air I&O Intake and Output 08/07/17 07:00 Intake Total 2400 ml Balance 2400 ml Intake Oral 2400 ml # Voids 2 Labs: Laboratory Tests Test 08/07/17 07:26 08/07/17 11:43 08/07/17 16:47 08/07/17 19:02 Glucose (Fingerstick) 86 mg/dL (70-99) 187 mg/dL (70-99) H 182 mg/dL (70-99) H 205 mg/dL (70-99) H Current Medications: Meds: Current Medications Olanzapine (ZyPREXA) 5 mg QHS PO Last administered on 07/28/17at 20:43; Start at 21:00; Stop 07/29/17 at 18:42; Status DC Gabapentin (Neurontin) 100 mg TID PO Last administered on 08/07/17at 20:01; Start 07/28/17 at 21:00 Metoprolol Tartrate (Lopressor) 100 mg BID PO Last administered on 08/07/17at 20 :05; Start 07/28/17 at 21:00 Insulin Detemir (Levemir) 30 units BID SQ Last administered on 08/07/17at 08:52 ; Start 07/28/17 at 21:00 Lisinopril (Prinivil) 20 mg BID PO Last administered on 08/07/17at 20:02; Start 07/28/17 at 21:00 Insulin Aspart (NovoLOG) 0-7 UNITS TIDAC SQ Last administered on 08/07/17at 17: 02; Start 07/29/17 at 11:30 Dextrose 12.5 gm PRN Q15MIN PRN IV SEE COMMENTS; Start 07/29/17 at 09:15 Nicotine Polacrilex (Nicorette Gum) 2 mg PRN Q2HR PRN BC SMOKING CESSATION Last administered on 08/07/17 13:47; Start 07/29/17 at 10:45 Folic Acid (Folic Acid) 1 mg DAILY PO Last administered on 08/07/17 08:50; Start 07/30/17 at 09:00 Insulin Aspart (NovoLOG) 15 units TIDAC SQ Last administered on 08/07/17at 17:03 ; Start 07/29/17 at 16:30 Thiamine HCl (Vitamin B-1) 100 mg DAILY PO Last administered on 08/07/17 08:50 ; Start 07/30/17 at 09:00 Quetiapine Fumarate (SEROquel) 50 mg HS PO Last administered on 08/07/17 20:02 ; Start 07/29/17 at 21:00 Medroxyprogesterone Acetate (Provera) 2.5 mg DAILY PO Last administered on 08/01 07:25; Start 07/30/17 at 09:00; Stop 08/02/17 at 08:59; Status DC Olanzapine (ZyPREXA ZYDIS) 2.5 mg PRN Q2HR PRN PO PSYCHOSIS Last administered on 08/05/17 11:32; Start 07/29/17 at 18:45 Divalproex Sodium (Depakote Sprinkles) 125 mg TID PO Last administered on 13:11; Start 07/30/17 at 14:00; Stop 08/03/17 at 18:52; Status DC Medroxyprogesterone Acetate (Provera) 5 mg DAILY PO Last administered on 07:54; Start 08/02/17 at 09:00; Stop 08/02/17 at 21:43; Status DC Trazodone HCl (Desyrel) 50 mg QHS PO Last administered on 08/07/17 20:02; Start 07/31/17 at 21:00 Trazodone HCl (Desyrel) 50 mg PRN QHS PRN PO INSOMNIA Last administered on 08/04at 01:05; Start 07/31/17 at 18:15 Magnesium Hydroxide (Milk Of Magnesia) 2,400 mg PRN DAILY PRN PO CONSTIPATION Last administered on 08/06/17 18:26; Start 08/02/17 at 19:45 Medroxyprogesterone Acetate (Provera) 7.5 mg DAILY PO Last administered on 08/06 08:48; Start 08/03/17 at 09:00; Stop 08/07/17 at 08:59; Status DC Divalproex Sodium (Depakote Sprinkles) 250 mg TID PO Last administered on 08:48; Start 08/03/17 at 21:00; Stop 08/06/17 at 10:54; Status DC Melatonin 3 mg QHS PO Last administered on 08/07/17 20:02; Start 08/03/17 at 21:00 Nystatin (Nystop) 1 danielle BID TP Last administered on 08/07/17 08:52; Start at 21:00 Medroxyprogesterone Acetate (Provera) 10 mg DAILY PO Last administered on at 08:50; Start 08/07/17 at 09:00 Buspirone HCl (Buspar) 5 mg 0900,1300,1700 PO Last administered on 08/07/17 17 :00; Start 08/06/17 at 09:00 Divalproex Sodium (Depakote Sprinkles) 375 mg TID PO Last administered on 20:02; Start 08/06/17 at 14:00 Docusate Calcium (Surfak) 240 mg DAILY PO Last administered on 08/07/17 08:50 ; Start 08/07/17 at 09:00 Magnesium Citrate (Citroma) 296 ml PRN DAILY PRN PO CONSTIPATION; Start at 15:30 Active Scripts Active Reported Thiamine Hcl 100 Mg Tablet 100 Mg PO DAILY Olanzapine 5 Mg Tablet 1 Tab PO QHS Folic Acid 1 Mg Tablet 1 Tab PO DAILY Lovenox (Enoxaparin Sodium) 40 Mg/0.4 Ml Disp.syrin 0.4 Ml SQ DAILY Lisinopril 40 Mg Tablet 20 Mg PO BID Novolog Flexpen (Insulin Aspart) 100 Unit/1 Ml Insuln.pen 0-7 Unit SQ TIDAC Novolog Flexpen (Insulin Aspart) 100 Unit/1 Ml Insuln.pen 15 Unit SQ TIDAC Metoprolol Tartrate 25 Mg Tablet 100 Mg PO BID Lantus Solostar (Insulin Glargine,Hum.rec.anlog) 100 Unit/1 Ml Insuln.pen 30 Unit SQ BID Gabapentin 100 Mg Capsule 100 Mg PO TID I have reviewed the current psychotropics carefully including drug interactions. Risk benefit ratio favors no change other than as noted in my dictated progress note. Diagnosis: Problems: (1) Anxiety disorder (2) Impulse control disorder (3) Bipolar affective disorder, mixed (4) Dementia, vascular, with delusions (5) Dementia with behavioral disturbance LIZ DIANE MD Aug 07, 2017 20:58
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
[2017-08-08] MEDS: traZODone 50 MG TABLET. PO SCH (00:55)
--- NOTE | 2017-08-08 00:58 | PN ---
DATE: 08/06/2017 This is a late entry for 08/06/2017 covers elements not covered in my initial note of 08/06/2017. SUBJECTIVE: I met with the patient in the evening of 08/06/2017, staffed at a treatment team meeting with the entire team morning of 08/06/2017. Appetite 100%, sleeping about 4 hours average, slept for 3/4 hours previous evening, The day before, he was quite aggressive, combative, sexually inappropriate, disruptive and distracting. Doing a little better during the day on 08/06/2017. Does complain of constipation, impaired ambulation with walker. REVIEW OF SYSTEMS: No CV, , pulmonary, eye system symptoms on review. MENTAL STATUS EXAM: Oriented to himself and situation. Speech is coherent, has some latency. Abstraction fair, computation impaired, language function intact, attention span short. Mood and affect remain somewhat labile, but less so than before. LABORATORY DATA: Reviewed. IMPRESSION: Bipolar 1 disorder, mixed with psychotic features; cognitive disorder, unspecified; impulse control disorder. Rest unchanged from initial note. PLAN: Continue psychotropics mentioned in my initial note. Valproic acid level is subtherapeutic at 24 on Depakote 250 mg t.i.d. We will increase it to 375 mg 3 times a day. Check CBC, CMP, valproic acid level in 3 days. MAN Newton DIANE MD DR: MATILDA/james JOB#: [id number] / [id number]
[2017-08-08 05:56] VITALS: BP 134/60
[2017-08-08] MEDS: INSULIN ASPART 300 UNITS/3 ML INSULN.PEN SQ SCH ×6 (07:30→18:02)
[2017-08-08] MEDS: medroxyPROGESTERone 5 MG TABLET PO SCH (08:48)
[2017-08-08] MEDS: DOCUSATE CALCIUM 240 MG CAPSULE PO SCH (08:49)
[2017-08-08] MEDS: LISINOPRIL 20 MG TABLET PO SCH ×2 (08:49→21:00)
[2017-08-08] MEDS: THIAMINE 100 MG TABLET. PO SCH (08:49)
[2017-08-08] MEDS: METOPROLOL TART IMMED RELEASE 50 MG TABLET PO SCH ×2 (08:49→20:28)
[2017-08-08] MEDS: FOLIC ACID 1 MG TABLET PO SCH (08:50)
[2017-08-08] MEDS: GABAPENTIN 100 MG CAPSULE. PO SCH ×3 (08:50→20:26)
[2017-08-08] MEDS: busPIRone 5 MG TABLET. PO SCH ×3 (08:50→17:50)
[2017-08-08] MEDS: DIVALPROEX 125 MG CAP.SPRINK PO SCH ×3 (08:50→20:25)
[2017-08-08] MEDS: INSULIN DETEMIR 300 UNITS/3 ML INSULN.PEN. SQ SCH ×2 (08:51→20:30)
[2017-08-08] MEDS: NYSTATIN TOPICAL POWDER 15GM BOTTLE. TP SCH ×2 (08:53→20:31)
[2017-08-08 15:47] VITALS: BP 137/54
[2017-08-08] MEDS: QUEtiapine 50 MG TABLET. PO SCH (20:25)
[2017-08-08] MEDS: MELATONIN 3 MG TABLET PO SCH (20:26)
[2017-08-08 20:34] LABS: BACTERIA,URINE 0 /HPF (0-FEW); BILIRUBIN,URINE NEG (NEG); CLARITY,URINE CLEAR; COLOR,URINE YELLOW; GLUCOSE,URINE 250 mg/dL (NEG); NITRITE,URINE NEG (NEG); RBC,URINE OCC /HPF (0-2); SQUAMOUS EPITHELIAL CELL,UR OCC /LPF; UROBILINOGEN,URINE 0.2 mg/dL (0.2 mg/dL); WBC,URINE OCC /HPF (0-4)
--- NOTE | 2017-08-08 22:50 | PDOC ---
Exam Note: Adriano Note: Please also refer to the separate dictated note~for this date of service dictated separately.~Patient seen individually. Discussed the patient with Nursing staff reviewed the chart.~Reviewed interim history and current functioning. Reviewed vital signs,~Labs/ Radiology~and current medications noted below. Continue current treatment with the changes noted in the dictated addendum note Assessment: Vital Signs: Vital Signs Date Time Temp Pulse Resp B/P (MAP) Pulse Ox O2 Delivery O2 Flow Rate FiO2 08/08/17 20:28 55 137/54 08/08/17 15:47 97.8 20 98 08/04/17 07:55 Room Air I&O Intake and Output 08/08/17 07:00 Intake Total 1560 ml Balance 1560 ml Intake Oral 1560 ml # Voids 2 # Bowel Movements 1 Labs: Laboratory Tests Test 08/08/17 07:10 08/08/17 11:51 08/08/17 16:33 08/08/17 19:02 Glucose (Fingerstick) 135 mg/dL (70-99) H 224 mg/dL (70-99) H 150 mg/dL (70-99) H 173 mg/dL (70-99) H Test 08/08/17 19:53 Urine Collection Type Unknown Urine Color Yellow Urine Clarity Clear Urine pH 6.0 Urine Specific [place] 1.020 Urine Protein 100 mg/dl (NEG-TRACE) Urine Glucose (UA) 250 mg/dL (NEG) Urine Ketones (Stick) 15 mg/dL (NEG) Urine Blood Neg (NEG) Urine Nitrite Neg (NEG) Urine Bilirubin Neg (NEG) Urine Urobilinogen Dipstick 0.2 mg/dL (0.2 mg/dL) Urine Leukocyte Esterase Neg (NEG) Urine RBC Occ /HPF (0-2) Urine WBC Occ /HPF (0-4) Urine Squamous Epithelial Cells Occ /LPF Urine Bacteria 0 /HPF (0-FEW) Urine Mucus Slight /LPF Current Medications: Meds: Current Medications Olanzapine (ZyPREXA) 5 mg QHS PO Last administered on 07/28/17at 20:43; Start at 21:00; Stop 07/29/17 at 18:42; Status DC Gabapentin (Neurontin) 100 mg TID PO Last administered on 08/08/17at 20:26; Start 07/28/17 at 21:00 Metoprolol Tartrate (Lopressor) 100 mg BID PO Last administered on 08/08/17 20 :28; Start 07/28/17 at 21:00 Insulin Detemir (Levemir) 30 units BID SQ Last administered on 08/08/17 20:30 ; Start 07/28/17 at 21:00 Lisinopril (Prinivil) 20 mg BID PO Last administered on 08/08/17 08:49; Start 07/28/17 at 21:00 Insulin Aspart (NovoLOG) 0-7 UNITS TIDAC SQ Last administered on 08/08/17 12: 23; Start 07/29/17 at 11:30 Dextrose 12.5 gm PRN Q15MIN PRN IV SEE COMMENTS; Start 07/29/17 at 09:15 Nicotine Polacrilex (Nicorette Gum) 2 mg PRN Q2HR PRN BC SMOKING CESSATION Last administered on 08/07/17 13:47; Start 07/29/17 at 10:45 Folic Acid (Folic Acid) 1 mg DAILY PO Last administered on 08/08/17 08:50; Start 07/30/17 at 09:00 Insulin Aspart (NovoLOG) 15 units TIDAC SQ Last administered on 08/08/17 18:02 ; Start 07/29/17 at 16:30 Thiamine HCl (Vitamin B-1) 100 mg DAILY PO Last administered on 08/08/17 08:49 ; Start 07/30/17 at 09:00 Quetiapine Fumarate (SEROquel) 50 mg HS PO Last administered on 08/08/17 20:25 ; Start 07/29/17 at 21:00 Medroxyprogesterone Acetate (Provera) 2.5 mg DAILY PO Last administered on 08/01 07:25; Start 07/30/17 at 09:00; Stop 08/02/17 at 08:59; Status DC Olanzapine (ZyPREXA ZYDIS) 2.5 mg PRN Q2HR PRN PO PSYCHOSIS Last administered on 08/05/17 11:32; Start 07/29/17 at 18:45 Divalproex Sodium (Depakote Sprinkles) 125 mg TID PO Last administered on 13:11; Start 07/30/17 at 14:00; Stop 08/03/17 at 18:52; Status DC Medroxyprogesterone Acetate (Provera) 5 mg DAILY PO Last administered on 07:54; Start 08/02/17 at 09:00; Stop 08/02/17 at 21:43; Status DC Trazodone HCl (Desyrel) 50 mg QHS PO Last administered on 08/08/17at 00:55; Start 07/31/17 at 21:00 Trazodone HCl (Desyrel) 50 mg PRN QHS PRN PO INSOMNIA Last administered on 08/04 01:05; Start 07/31/17 at 18:15 Magnesium Hydroxide (Milk Of Magnesia) 2,400 mg PRN DAILY PRN PO CONSTIPATION Last administered on 08/06/17 18:26; Start 08/02/17 at 19:45 Medroxyprogesterone Acetate (Provera) 7.5 mg DAILY PO Last administered on 08/06 08:48; Start 08/03/17 at 09:00; Stop 08/07/17 at 08:59; Status DC Divalproex Sodium (Depakote Sprinkles) 250 mg TID PO Last administered on 08:48; Start 08/03/17 at 21:00; Stop 08/06/17 at 10:54; Status DC Melatonin 3 mg QHS PO Last administered on 08/08/17 20:26; Start 08/03/17 at 21:00 Nystatin (Nystop) 1 danielle BID TP Last administered on 08/08/17 20:31; Start at 21:00 Medroxyprogesterone Acetate (Provera) 10 mg DAILY PO Last administered on 08:48; Start 08/07/17 at 09:00 Buspirone HCl (Buspar) 5 mg 0900,1300,1700 PO Last administered on 08/08/17 17 :50; Start 08/06/17 at 09:00 Divalproex Sodium (Depakote Sprinkles) 375 mg TID PO Last administered on 20:25; Start 08/06/17 at 14:00 Docusate Calcium (Surfak) 240 mg DAILY PO Last administered on 3/31/18at 08:49 ; Start 08/07/17 at 09:00 Magnesium Citrate (Citroma) 296 ml PRN DAILY PRN PO CONSTIPATION; Start at 15:30 Active Scripts Active Reported Thiamine Hcl 100 Mg Tablet 100 Mg PO DAILY Olanzapine 5 Mg Tablet 1 Tab PO QHS Folic Acid 1 Mg Tablet 1 Tab PO DAILY Lovenox (Enoxaparin Sodium) 40 Mg/0.4 Ml Disp.syrin 0.4 Ml SQ DAILY Lisinopril 40 Mg Tablet 20 Mg PO BID Novolog Flexpen (Insulin Aspart) 100 Unit/1 Ml Insuln.pen 0-7 Unit SQ TIDAC Novolog Flexpen (Insulin Aspart) 100 Unit/1 Ml Insuln.pen 15 Unit SQ TIDAC Metoprolol Tartrate 25 Mg Tablet 100 Mg PO BID Lantus Solostar (Insulin Glargine,Hum.rec.anlog) 100 Unit/1 Ml Insuln.pen 30 Unit SQ BID Gabapentin 100 Mg Capsule 100 Mg PO TID I have reviewed the current psychotropics carefully including drug interactions. Risk benefit ratio favors no change other than as noted in my dictated progress note. Diagnosis: Problems: (1) Anxiety disorder (2) Impulse control disorder (3) Bipolar affective disorder, mixed (4) Dementia, vascular, with delusions (5) Dementia with behavioral disturbance LIZ DIANE MD Aug 08, 2017 22:50
[2017-08-09] MEDS: traZODone 50 MG TABLET. PO PRN ×2 (02:15→22:09)
[2017-08-09 05:59] VITALS: BP 168/63
[2017-08-09] MEDS: INSULIN ASPART 300 UNITS/3 ML INSULN.PEN SQ SCH ×6 (07:30→17:42)
[2017-08-09 07:56] LABS: BASO % 1 % (0-3); EOS # 0.2 x10^3/uL (0.0-0.7); EOS % 3 % (0-3); HEMATOCRIT 38.6 % (39.0-53.0); HEMOGLOBIN 13.2 g/dL (13.0-17.5); LYMPH # 1.5 x10^3/uL (1.0-4.8); LYMPH % 26 % (24-48); MEAN CORPUSCULAR HEMOGLOBIN 31 pg (25-35); MEAN CORPUSCULAR HGB CONC 34 g/dL (31-37); MEAN CORPUSCULAR VOLUME 91 fL (79-100); MONO # 0.4 x10^3/uL (0.0-1.1); MONO % 7 % (0-9); NEUT # 3.6 x10^3uL (1.8-7.7); NEUT % 63 % (31-73); PLATELET COUNT 134 x10^3/uL (140-400); RED BLOOD COUNT 4.25 x10^6/uL (4.30-5.70); RED CELL DISTRIBUTION WIDTH 14.1 % (11.5-14.5); WHITE BLOOD COUNT 5.7 x10^3/uL (4.0-11.0)
[2017-08-09] MEDS: LISINOPRIL 20 MG TABLET PO SCH ×2 (08:08→20:44)
[2017-08-09] MEDS: FOLIC ACID 1 MG TABLET PO SCH (08:08)
[2017-08-09] MEDS: busPIRone 5 MG TABLET. PO SCH ×3 (08:08→17:42)
[2017-08-09] MEDS: medroxyPROGESTERone 5 MG TABLET PO SCH (08:08)
[2017-08-09] MEDS: THIAMINE 100 MG TABLET. PO SCH (08:08)
[2017-08-09] MEDS: DIVALPROEX 125 MG CAP.SPRINK PO SCH ×3 (08:08→20:46)
[2017-08-09] MEDS: METOPROLOL TART IMMED RELEASE 50 MG TABLET PO SCH ×2 (08:09→20:44)
[2017-08-09] MEDS: DOCUSATE CALCIUM 240 MG CAPSULE PO SCH (08:09)
[2017-08-09] MEDS: GABAPENTIN 100 MG CAPSULE. PO SCH ×3 (08:09→20:43)
[2017-08-09] MEDS: INSULIN DETEMIR 300 UNITS/3 ML INSULN.PEN. SQ SCH ×2 (08:14→22:13)
[2017-08-09] MEDS: NYSTATIN TOPICAL POWDER 15GM BOTTLE. TP SCH ×2 (08:15→20:59)
[2017-08-09 08:17] LABS: ALBUMIN/GLOBULIN RATIO 0.8 (1.0-1.7); ALK PHOS 60 U/L (46-116); ALT (SGPT) 21 U/L (16-63); ANION GAP 7 (6-14); AST (SGOT) 10 U/L (15-37); BLOOD UREA NITROGEN 16 mg/dL (8-26); BUN/CREATININE RATIO 18 (6-20); CALCIUM 8.3 mg/dL (8.5-10.1); CARBON DIOXIDE 28 mmol/L (21-32); CHLORIDE 109 mmol/L (98-107); CREATININE 0.9 mg/dL (0.7-1.3); GFR 82.7; GLUCOSE 126 mg/dL (70-99); POTASSIUM 4.1 mmol/L (3.5-5.1); SODIUM 144 mmol/L (136-145); TOTAL BILIRUBIN 0.3 mg/dL (0.2-1.0); TOTAL PROTEIN 6.6 g/dL (6.4-8.2)
[2017-08-09 08:20] LABS: VAL ACID 47 mcg/mL (50-100)
[2017-08-09] MEDS: MAGNESIUM CITRATE 296 ML SOLUTION. PO PRN (09:15)
[2017-08-09 15:27] VITALS: BP 145/71
--- NOTE | 2017-08-09 16:30 | PN ---
DATE: 08/07/2017 PSYCHIATRIC PROGRESS NOTE This is a late entry 08/07/2017, covers elements not covered in my initial note 08/07/2017. SUBJECTIVE: I met with the patient the evening of 08/07/2017. The patient slept 4 hours previous evening, irritable, somewhat withdrawn, sleeps off and on during the day, spends much time in his room at times. REVIEW OF SYSTEMS: Ambulation impaired with walker. No CV, , pulmonary, eye system symptoms on review. MENTAL STATUS EXAM: Oriented to himself and situation. Speech is coherent, abstraction fair, computation impaired, language function intact, attention span short. Mood and affect less labile. LABORATORY DATA: Reviewed. IMPRESSION: Unchanged from initial note. PLAN: Continue psychotropics mentioned in my initial note. MAN Newton DIANE MD DR: MATILDA/james JOB#: [id number] / [id number]
[2017-08-09] MEDS: traZODone 50 MG TABLET. PO SCH (20:43)
[2017-08-09] MEDS: QUEtiapine 50 MG TABLET. PO SCH (20:44)
[2017-08-09] MEDS: MELATONIN 3 MG TABLET PO SCH (20:44)
--- NOTE | 2017-08-09 22:00 | PDOC ---
Exam Note: Adriano Note: Please also refer to the separate dictated note~for this date of service dictated separately.~Patient seen individually. Discussed the patient with Nursing staff reviewed the chart.~Reviewed interim history and current functioning. Reviewed vital signs,~Labs/ Radiology~and current medications noted below. Continue current treatment with the changes noted in the dictated addendum note Assessment: Vital Signs: Vital Signs Date Time Temp Pulse Resp B/P (MAP) Pulse Ox O2 Delivery O2 Flow Rate FiO2 08/09/17 20:44 58 145/71 08/09/17 15:27 97.6 20 97 08/04/17 07:55 Room Air I&O Intake and Output 08/09/17 07:00 Intake Total 1320 ml Balance 1320 ml Intake Oral 1320 ml # Voids 2 Labs: Laboratory Tests Test 08/09/17 07:21 08/09/17 07:30 08/09/17 12:01 08/09/17 16:43 Glucose (Fingerstick) 107 mg/dL (70-99) H 199 mg/dL (70-99) H 217 mg/dL (70-99) H White Blood Count 5.7 x10^3/uL (4.0-11.0) Red Blood Count 4.25 x10^6/uL (4.30-5.70) L Hemoglobin 13.2 g/dL (13.0-17.5) Hematocrit 38.6 % (39.0-53.0) L Mean Corpuscular Volume 91 fL (79-100) Mean Corpuscular Hemoglobin 31 pg (25-35) Mean Corpuscular Hemoglobin Concent 34 g/dL (31-37) Red Cell Distribution Width 14.1 % (11.5-14.5) Platelet Count 134 x10^3/uL (140-400) L Neutrophils (%) (Auto) 63 % (31-73) Lymphocytes (%) (Auto) 26 % (24-48) Monocytes (%) (Auto) 7 % (0-9) Eosinophils (%) (Auto) 3 % (0-3) Basophils (%) (Auto) 1 % (0-3) Neutrophils # (Auto) 3.6 x10^3uL (1.8-7.7) Lymphocytes # (Auto) 1.5 x10^3/uL (1.0-4.8) Monocytes # (Auto) 0.4 x10^3/uL (0.0-1.1) Eosinophils # (Auto) 0.2 x10^3/uL (0.0-0.7) Basophils # (Auto) 0.0 x10^3/uL (0.0-0.2) Sodium Level 144 mmol/L (136-145) Potassium Level 4.1 mmol/L (3.5-5.1) Chloride Level 109 mmol/L (98-107) H Carbon Dioxide Level 28 mmol/L (21-32) Anion Gap 7 (6-14) Blood Urea Nitrogen 16 mg/dL (8-26) Creatinine 0.9 mg/dL (0.7-1.3) Estimated GFR (Cockcroft-Gault) 82.7 BUN/Creatinine Ratio 18 (6-20) Glucose Level 126 mg/dL (70-99) H Calcium Level 8.3 mg/dL (8.5-10.1) L Total Bilirubin 0.3 mg/dL (0.2-1.0) Aspartate Amino Transferase (AST) 10 U/L (15-37) L Alanine Aminotransferase (ALT) 21 U/L (16-63) Alkaline Phosphatase 60 U/L (46-116) Total Protein 6.6 g/dL (6.4-8.2) Albumin 3.0 g/dL (3.4-5.0) L Albumin/Globulin Ratio 0.8 (1.0-1.7) L Valproic Acid Level 47 mcg/mL (50-100) L Valproic Acid Last Dose Date 08/08/17 Valproic Acid Last Dose Time 2100 Test 08/09/17 19:12 Glucose (Fingerstick) 278 mg/dL (70-99) H Current Medications: Meds: Current Medications Olanzapine (ZyPREXA) 5 mg QHS PO Last administered on 07/28/17at 20:43; Start at 21:00; Stop 07/29/17 at 18:42; Status DC Gabapentin (Neurontin) 100 mg TID PO Last administered on 08/09/17at 20:43; Start 07/28/17 at 21:00 Metoprolol Tartrate (Lopressor) 100 mg BID PO Last administered on 08/09/17at 20: 44; Start 07/28/17 at 21:00 Insulin Detemir (Levemir) 30 units BID SQ Last administered on 08/09/17 08:14; Start 07/28/17 at 21:00 Lisinopril (Prinivil) 20 mg BID PO Last administered on 08/09/17at 20:44; Start 07/28/17 at 21:00 Insulin Aspart (NovoLOG) 0-7 UNITS TIDAC SQ Last administered on 08/09/17at 17:42 ; Start 07/29/17 at 11:30 Dextrose 12.5 gm PRN Q15MIN PRN IV SEE COMMENTS; Start 07/29/17 at 09:15 Nicotine Polacrilex (Nicorette Gum) 2 mg PRN Q2HR PRN BC SMOKING CESSATION Last administered on 08/07/17at 13:47; Start 07/29/17 at 10:45 Folic Acid (Folic Acid) 1 mg DAILY PO Last administered on 08/09/17 08:08; Start 07/30/17 at 09:00 Insulin Aspart (NovoLOG) 15 units TIDAC SQ Last administered on 08/09/17at 17:41 ; Start 07/29/17 at 16:30 Thiamine HCl (Vitamin B-1) 100 mg DAILY PO Last administered on 08/09/17 08:08 ; Start 07/30/17 at 09:00 Quetiapine Fumarate (SEROquel) 50 mg HS PO Last administered on 08/09/17 20:44 ; Start 07/29/17 at 21:00 Medroxyprogesterone Acetate (Provera) 2.5 mg DAILY PO Last administered on 08/01 07:25; Start 07/30/17 at 09:00; Stop 08/02/17 at 08:59; Status DC Olanzapine (ZyPREXA ZYDIS) 2.5 mg PRN Q2HR PRN PO PSYCHOSIS Last administered on 08/05/17 11:32; Start 07/29/17 at 18:45 Divalproex Sodium (Depakote Sprinkles) 125 mg TID PO Last administered on 13:11; Start 07/30/17 at 14:00; Stop 08/03/17 at 18:52; Status DC Medroxyprogesterone Acetate (Provera) 5 mg DAILY PO Last administered on 07:54; Start 08/02/17 at 09:00; Stop 08/02/17 at 21:43; Status DC Trazodone HCl (Desyrel) 50 mg QHS PO Last administered on 08/09/17 20:43; Start 07/31/17 at 21:00 Trazodone HCl (Desyrel) 50 mg PRN QHS PRN PO INSOMNIA Last administered on 02:15; Start 07/31/17 at 18:15 Magnesium Hydroxide (Milk Of Magnesia) 2,400 mg PRN DAILY PRN PO CONSTIPATION Last administered on 08/06/17 18:26; Start 08/02/17 at 19:45 Medroxyprogesterone Acetate (Provera) 7.5 mg DAILY PO Last administered on 08/06 08:48; Start 08/03/17 at 09:00; Stop 08/07/17 at 08:59; Status DC Divalproex Sodium (Depakote Sprinkles) 250 mg TID PO Last administered on 08:48; Start 08/03/17 at 21:00; Stop 08/06/17 at 10:54; Status DC Melatonin 3 mg QHS PO Last administered on 08/09/17 20:44; Start 08/03/17 at 21 :00 Nystatin (Nystop) 1 danielle BID TP Last administered on 08/09/17 20:59; Start 08/04 at 21:00 Medroxyprogesterone Acetate (Provera) 10 mg DAILY PO Last administered on 08:08; Start 08/07/17 at 09:00 Buspirone HCl (Buspar) 5 mg 0900,1300,1700 PO Last administered on 08/09/17 17: 42; Start 08/06/17 at 09:00 Divalproex Sodium (Depakote Sprinkles) 375 mg TID PO Last administered on 20:46; Start 08/06/17 at 14:00 Docusate Calcium (Surfak) 240 mg DAILY PO Last administered on 08/09/17 08:09; Start 08/07/17 at 09:00 Magnesium Citrate (Citroma) 296 ml PRN DAILY PRN PO CONSTIPATION Last administered on 4/1/18at 09:15; Start 08/07/17 at 15:30 Active Scripts Active Reported Thiamine Hcl 100 Mg Tablet 100 Mg PO DAILY Olanzapine 5 Mg Tablet 1 Tab PO QHS Folic Acid 1 Mg Tablet 1 Tab PO DAILY Lovenox (Enoxaparin Sodium) 40 Mg/0.4 Ml Disp.syrin 0.4 Ml SQ DAILY Lisinopril 40 Mg Tablet 20 Mg PO BID Novolog Flexpen (Insulin Aspart) 100 Unit/1 Ml Insuln.pen 0-7 Unit SQ TIDAC Novolog Flexpen (Insulin Aspart) 100 Unit/1 Ml Insuln.pen 15 Unit SQ TIDAC Metoprolol Tartrate 25 Mg Tablet 100 Mg PO BID Lantus Solostar (Insulin Glargine,Hum.rec.anlog) 100 Unit/1 Ml Insuln.pen 30 Unit SQ BID Gabapentin 100 Mg Capsule 100 Mg PO TID I have reviewed the current psychotropics carefully including drug interactions. Risk benefit ratio favors no change other than as noted in my dictated progress note. Diagnosis: Problems: (1) Anxiety disorder (2) Impulse control disorder (3) Bipolar affective disorder, mixed (4) Dementia, vascular, with delusions (5) Dementia with behavioral disturbance LIZ DIANE MD Aug 09, 2017 22:00
[2017-08-10 06:19] VITALS: BP 135/68
[2017-08-10] MEDS: DOCUSATE CALCIUM 240 MG CAPSULE PO SCH (07:48)
[2017-08-10] MEDS: medroxyPROGESTERone 5 MG TABLET PO SCH (07:48)
[2017-08-10] MEDS: DIVALPROEX 125 MG CAP.SPRINK PO SCH ×3 (07:49→19:38)
[2017-08-10] MEDS: LISINOPRIL 20 MG TABLET PO SCH ×2 (07:49→19:39)
[2017-08-10] MEDS: GABAPENTIN 100 MG CAPSULE. PO SCH ×3 (07:50→19:38)
[2017-08-10] MEDS: METOPROLOL TART IMMED RELEASE 50 MG TABLET PO SCH ×2 (07:50→19:39)
[2017-08-10] MEDS: FOLIC ACID 1 MG TABLET PO SCH (07:50)
[2017-08-10] MEDS: busPIRone 5 MG TABLET. PO SCH ×3 (07:50→17:06)
[2017-08-10] MEDS: INSULIN ASPART 300 UNITS/3 ML INSULN.PEN SQ SCH ×6 (07:51→16:53)
[2017-08-10] MEDS: THIAMINE 100 MG TABLET. PO SCH (07:54)
[2017-08-10] MEDS: NYSTATIN TOPICAL POWDER 15GM BOTTLE. TP SCH ×2 (07:54→19:43)
[2017-08-10] MEDS: INSULIN DETEMIR 300 UNITS/3 ML INSULN.PEN. SQ SCH ×2 (07:55→19:43)
[2017-08-10 15:54] VITALS: BP 155/70
--- NOTE | 2017-08-10 17:31 | PN ---
DATE: 08/08/2017 This late entry 08/08/2017 covers elements not covered in my initial note 08/08/2017. Met with the patient evening of 08/08/2017. The patient slept 6-1/2 hours previous evening, has done little better during the day, was upset last night with having change in his room, got repeat trazodone, slept until 10:00 in the morning. REVIEW OF SYSTEMS: No CV, , pulmonary, eye, ENT system symptoms on review. Gait unsteady with walker. MENTAL STATUS EXAM: Reasonably oriented. Speech coherent, abstraction fair, computation impaired, language function intact, attention span short. Mood and affect showing improvement. During the individual visit, we processed some of his reactivity to stimuli around him and his agitation in ways to improve the control and he is quite insightful. LABORATORY DATA: Reviewed. IMPRESSION: Bipolar 1 disorder, mixed; major neurocognitive disorder, early Alzheimer, vascular. PLAN: Continue current psychotropics. Provera was increased to 10 mg a day. Repeat valproic acid level on the higher dosage of Depakote, plan to reach therapeutic level. MAN Newton DIANE MD DR: MATILDA/james JOB#: [id number] / [id number]
[2017-08-10] MEDS: QUEtiapine 50 MG TABLET. PO SCH (19:38)
[2017-08-10] MEDS: MELATONIN 3 MG TABLET PO SCH (19:39)
[2017-08-10] MEDS: traZODone 100 MG TABLET. PO SCH (19:44)
--- NOTE | 2017-08-10 20:59 | PDOC ---
Exam Note: Adriano Note: Please also refer to the separate dictated note~for this date of service dictated separately.~Patient seen individually. Discussed the patient with Nursing staff reviewed the chart.~Reviewed interim history and current functioning. Reviewed vital signs,~Labs/ Radiology~and current medications noted below. Continue current treatment with the changes noted in the dictated addendum note Assessment: Vital Signs: Vital Signs Date Time Temp Pulse Resp B/P (MAP) Pulse Ox O2 Delivery O2 Flow Rate FiO2 08/10/17 19:39 52 155/70 08/10/17 15:54 98.3 18 100 Room Air I&O Intake and Output 08/10/17 07:00 Intake Total 1440 ml Balance 1440 ml Intake Oral 1440 ml # Voids 2 # Bowel Movements 1 Labs: Laboratory Tests Test 08/10/17 07:19 08/10/17 11:13 08/10/17 16:28 08/10/17 19:07 Glucose (Fingerstick) 155 mg/dL (70-99) H 196 mg/dL (70-99) H 144 mg/dL (70-99) H 166 mg/dL (70-99) H Current Medications: Meds: Current Medications Olanzapine (ZyPREXA) 5 mg QHS PO Last administered on 07/28/17 20:43; Start at 21:00; Stop 07/29/17 at 18:42; Status DC Gabapentin (Neurontin) 100 mg TID PO Last administered on 08/10/17 19:38; Start 07/28/17 at 21:00 Metoprolol Tartrate (Lopressor) 100 mg BID PO Last administered on 08/10/17 19: 39; Start 07/28/17 at 21:00 Insulin Detemir (Levemir) 30 units BID SQ Last administered on 08/10/17 19:43; Start 07/28/17 at 21:00 Lisinopril (Prinivil) 20 mg BID PO Last administered on 08/10/17 19:39; Start 07/28/17 at 21:00 Insulin Aspart (NovoLOG) 0-7 UNITS TIDAC SQ Last administered on 08/10/17at 11:38 ; Start 07/29/17 at 11:30 Dextrose 12.5 gm PRN Q15MIN PRN IV SEE COMMENTS; Start 07/29/17 at 09:15 Nicotine Polacrilex (Nicorette Gum) 2 mg PRN Q2HR PRN BC SMOKING CESSATION Last administered on 08/07/17 13:47; Start 07/29/17 at 10:45 Folic Acid (Folic Acid) 1 mg DAILY PO Last administered on 08/10/17 07:50; Start 07/30/17 at 09:00 Insulin Aspart (NovoLOG) 15 units TIDAC SQ Last administered on 08/10/17 16:53 ; Start 07/29/17 at 16:30 Thiamine HCl (Vitamin B-1) 100 mg DAILY PO Last administered on 08/10/17 07:54 ; Start 07/30/17 at 09:00 Quetiapine Fumarate (SEROquel) 50 mg HS PO Last administered on 08/10/17 19:38 ; Start 07/29/17 at 21:00 Medroxyprogesterone Acetate (Provera) 2.5 mg DAILY PO Last administered on 08/01at 07:25; Start 07/30/17 at 09:00; Stop 08/02/17 at 08:59; Status DC Olanzapine (ZyPREXA ZYDIS) 2.5 mg PRN Q2HR PRN PO PSYCHOSIS Last administered on 08/05/17at 11:32; Start 07/29/17 at 18:45 Divalproex Sodium (Depakote Sprinkles) 125 mg TID PO Last administered on 13:11; Start 07/30/17 at 14:00; Stop 08/03/17 at 18:52; Status DC Medroxyprogesterone Acetate (Provera) 5 mg DAILY PO Last administered on at 07:54; Start 08/02/17 at 09:00; Stop 08/02/17 at 21:43; Status DC Trazodone HCl (Desyrel) 50 mg QHS PO Last administered on 08/09/17at 20:43; Start 07/31/17 at 21:00; Stop 08/10/17 at 18:36; Status DC Trazodone HCl (Desyrel) 50 mg PRN QHS PRN PO INSOMNIA Last administered on 22:09; Start 07/31/17 at 18:15; Stop 08/10/17 at 18:37; Status DC Magnesium Hydroxide (Milk Of Magnesia) 2,400 mg PRN DAILY PRN PO CONSTIPATION Last administered on 08/06/17 18:26; Start 08/02/17 at 19:45 Medroxyprogesterone Acetate (Provera) 7.5 mg DAILY PO Last administered on 08/06 08:48; Start 08/03/17 at 09:00; Stop 08/07/17 at 08:59; Status DC Divalproex Sodium (Depakote Sprinkles) 250 mg TID PO Last administered on 08:48; Start 08/03/17 at 21:00; Stop 08/06/17 at 10:54; Status DC Melatonin 3 mg QHS PO Last administered on 08/10/17 19:39; Start 08/03/17 at 21 :00 Nystatin (Nystop) 1 danielle BID TP Last administered on 08/10/17 19:43; Start 08/04 at 21:00 Medroxyprogesterone Acetate (Provera) 10 mg DAILY PO Last administered on 07:48; Start 08/07/17 at 09:00 Buspirone HCl (Buspar) 5 mg 0900,1300,1700 PO Last administered on 08/10/17 17: 06; Start 08/06/17 at 09:00 Divalproex Sodium (Depakote Sprinkles) 375 mg TID PO Last administered on 19:38; Start 08/06/17 at 14:00 Docusate Calcium (Surfak) 240 mg DAILY PO Last administered on 08/10/17 07:48; Start 08/07/17 at 09:00 Magnesium Citrate (Citroma) 296 ml PRN DAILY PRN PO CONSTIPATION Last administered on 08/09/17 09:15; Start 08/07/17 at 15:30 Trazodone HCl (Desyrel) 100 mg PRN QHS PRN PO INSOMNIA; Start 08/10/17 at 18:45 Trazodone HCl (Desyrel) 100 mg QHS PO Last administered on 08/10/17 19:44; Start 08/10/17 at 21:00 Active Scripts Active Reported Thiamine Hcl 100 Mg Tablet 100 Mg PO DAILY Olanzapine 5 Mg Tablet 1 Tab PO QHS Folic Acid 1 Mg Tablet 1 Tab PO DAILY Lovenox (Enoxaparin Sodium) 40 Mg/0.4 Ml Disp.syrin 0.4 Ml SQ DAILY Lisinopril 40 Mg Tablet 20 Mg PO BID Novolog Flexpen (Insulin Aspart) 100 Unit/1 Ml Insuln.pen 0-7 Unit SQ TIDAC Novolog Flexpen (Insulin Aspart) 100 Unit/1 Ml Insuln.pen 15 Unit SQ TIDAC Metoprolol Tartrate 25 Mg Tablet 100 Mg PO BID Lantus Solostar (Insulin Glargine,Hum.rec.anlog) 100 Unit/1 Ml Insuln.pen 30 Unit SQ BID Gabapentin 100 Mg Capsule 100 Mg PO TID I have reviewed the current psychotropics carefully including drug interactions. Risk benefit ratio favors no change other than as noted in my dictated progress note. Diagnosis: Problems: (1) Anxiety disorder (2) Impulse control disorder (3) Bipolar affective disorder, mixed (4) Dementia, vascular, with delusions (5) Dementia with behavioral disturbance LIZ DIANE MD Aug 10, 2017 20:59
--- NOTE | 2017-08-11 02:27 | PN ---
DATE: 08/09/2017 This late entry 08/09/2016 covers elements not covered in the initial note 08/09/2017. Met with the patient in the evening of 08/09/2017. Overall, the patient remains somewhat withdrawn, a little labile at times. Psychological testing was completed by Dr. Mathis with the recommendation that the patient would benefit from having a power of personal injury attorney help make decisions for him given his some impairment, incapacity to make decisions for himself. We will defer to social service staff. We will help coordinate the DPOA after discussing with the son. REVIEW OF SYSTEMS: Ambulation impaired with walker. No CV, , pulmonary, eye system symptoms on review. MENTAL STATUS EXAM: Oriented to himself and situation. Speech coherent, abstraction fair, computation impaired, language function intact, attention span short. Mood and affect somewhat anxious, labile. LABORATORY DATA: Reviewed. IMPRESSION: Bipolar 1 disorder, mixed; major neurocognitive disorder, early Alzheimer, vascular with history of delusions. Rest unchanged. PLAN: Continue psychotropics mentioned in my initial note. Depakote was adjusted since last level was 24. We will repeat labs level, adjust to reach a therapeutic level. MAN Newton DIANE MD DR: MATILDA/james JOB#: [id number] / [id number]
[2017-08-11 06:03] VITALS: BP 164/70
[2017-08-11] MEDS: INSULIN ASPART 300 UNITS/3 ML INSULN.PEN SQ SCH ×6 (07:30→16:51)
[2017-08-11] MEDS: THIAMINE 100 MG TABLET. PO SCH (07:59)
[2017-08-11] MEDS: DOCUSATE CALCIUM 240 MG CAPSULE PO SCH (07:59)
[2017-08-11] MEDS: busPIRone 5 MG TABLET. PO SCH ×3 (07:59→16:50)
[2017-08-11] MEDS: medroxyPROGESTERone 5 MG TABLET PO SCH (07:59)
[2017-08-11] MEDS: DIVALPROEX 125 MG CAP.SPRINK PO SCH ×3 (07:59→19:34)
[2017-08-11] MEDS: FOLIC ACID 1 MG TABLET PO SCH (08:00)
[2017-08-11] MEDS: GABAPENTIN 100 MG CAPSULE. PO SCH ×3 (08:00→19:34)
[2017-08-11] MEDS: LISINOPRIL 20 MG TABLET PO SCH ×2 (08:00→19:33)
[2017-08-11] MEDS: METOPROLOL TART IMMED RELEASE 50 MG TABLET PO SCH ×2 (08:00→19:34)
[2017-08-11] MEDS: NYSTATIN TOPICAL POWDER 15GM BOTTLE. TP SCH ×2 (08:01→19:35)
[2017-08-11] MEDS: INSULIN DETEMIR 300 UNITS/3 ML INSULN.PEN. SQ SCH ×2 (08:04→19:36)
[2017-08-11 15:38] VITALS: BP 152/66
[2017-08-11] MEDS ORDERED: hydrOXYzine PAMOATE 25 MG CAPSULE PO PRN (18:45)
[2017-08-11] MEDS: traZODone 100 MG TABLET. PO SCH (19:34)
[2017-08-11] MEDS: QUEtiapine 50 MG TABLET. PO SCH (19:34)
[2017-08-11] MEDS: MELATONIN 3 MG TABLET PO SCH (19:34)
--- NOTE | 2017-08-11 20:57 | PDOC ---
Exam Note: Adriano Note: Please also refer to the separate dictated note~for this date of service dictated separately.~Patient seen individually. Discussed the patient with Nursing staff reviewed the chart.~Reviewed interim history and current functioning. Reviewed vital signs,~Labs/ Radiology~and current medications noted below. Continue current treatment with the changes noted in the dictated addendum note Assessment: Vital Signs: Vital Signs Date Time Temp Pulse Resp B/P (MAP) Pulse Ox O2 Delivery O2 Flow Rate FiO2 08/11/17 19:34 55 152/66 08/11/17 15:38 98.3 18 97 08/10/17 15:54 Room Air I&O Intake and Output 08/11/17 07:00 Intake Total 1920 ml Balance 1920 ml Intake Oral 1920 ml # Voids 2 Labs: Laboratory Tests Test 08/11/17 07:40 08/11/17 11:54 08/11/17 16:41 08/11/17 19:24 Glucose (Fingerstick) 107 mg/dL (70-99) H 121 mg/dL (70-99) H 143 mg/dL (70-99) H 173 mg/dL (70-99) H Current Medications: Meds: Current Medications Olanzapine (ZyPREXA) 5 mg QHS PO Last administered on 07/28/17 20:43; Start at 21:00; Stop 07/29/17 at 18:42; Status DC Gabapentin (Neurontin) 100 mg TID PO Last administered on 08/11/17 19:34; Start 07/28/17 at 21:00 Metoprolol Tartrate (Lopressor) 100 mg BID PO Last administered on 08/11/17 19: 34; Start 07/28/17 at 21:00 Insulin Detemir (Levemir) 30 units BID SQ Last administered on 08/11/17 19:36; Start 07/28/17 at 21:00 Lisinopril (Prinivil) 20 mg BID PO Last administered on 08/11/17 19:33; Start 07/28/17 at 21:00 Insulin Aspart (NovoLOG) 0-7 UNITS TIDAC SQ Last administered on 08/10/17at 11:38 ; Start 07/29/17 at 11:30 Dextrose 12.5 gm PRN Q15MIN PRN IV SEE COMMENTS; Start 07/29/17 at 09:15 Nicotine Polacrilex (Nicorette Gum) 2 mg PRN Q2HR PRN BC SMOKING CESSATION Last administered on 08/07/17at 13:47; Start 07/29/17 at 10:45 Folic Acid (Folic Acid) 1 mg DAILY PO Last administered on 08/11/17 08:00; Start 07/30/17 at 09:00 Insulin Aspart (NovoLOG) 15 units TIDAC SQ Last administered on 08/11/17at 16:51 ; Start 07/29/17 at 16:30 Thiamine HCl (Vitamin B-1) 100 mg DAILY PO Last administered on 08/11/17 07:59 ; Start 07/30/17 at 09:00 Quetiapine Fumarate (SEROquel) 50 mg HS PO Last administered on 08/11/17 19:34 ; Start 07/29/17 at 21:00 Medroxyprogesterone Acetate (Provera) 2.5 mg DAILY PO Last administered on 08/01 07:25; Start 07/30/17 at 09:00; Stop 08/02/17 at 08:59; Status DC Olanzapine (ZyPREXA ZYDIS) 2.5 mg PRN Q2HR PRN PO PSYCHOSIS Last administered on 08/05/17at 11:32; Start 07/29/17 at 18:45 Divalproex Sodium (Depakote Sprinkles) 125 mg TID PO Last administered on 13:11; Start 07/30/17 at 14:00; Stop 08/03/17 at 18:52; Status DC Medroxyprogesterone Acetate (Provera) 5 mg DAILY PO Last administered on at 07:54; Start 08/02/17 at 09:00; Stop 08/02/17 at 21:43; Status DC Trazodone HCl (Desyrel) 50 mg QHS PO Last administered on 08/09/17at 20:43; Start 07/31/17 at 21:00; Stop 08/10/17 at 18:36; Status DC Trazodone HCl (Desyrel) 50 mg PRN QHS PRN PO INSOMNIA Last administered on 22:09; Start 07/31/17 at 18:15; Stop 08/10/17 at 18:37; Status DC Magnesium Hydroxide (Milk Of Magnesia) 2,400 mg PRN DAILY PRN PO CONSTIPATION Last administered on 08/06/17 18:26; Start 08/02/17 at 19:45 Medroxyprogesterone Acetate (Provera) 7.5 mg DAILY PO Last administered on 08/06 08:48; Start 08/03/17 at 09:00; Stop 08/07/17 at 08:59; Status DC Divalproex Sodium (Depakote Sprinkles) 250 mg TID PO Last administered on 08:48; Start 08/03/17 at 21:00; Stop 08/06/17 at 10:54; Status DC Melatonin 3 mg QHS PO Last administered on 08/11/17 19:34; Start 08/03/17 at 21 :00 Nystatin (Nystop) 1 danielle BID TP Last administered on 08/11/17 19:35; Start 08/04 at 21:00 Medroxyprogesterone Acetate (Provera) 10 mg DAILY PO Last administered on 07:59; Start 08/07/17 at 09:00 Buspirone HCl (Buspar) 5 mg 0900,1300,1700 PO Last administered on 08/11/17 16: 50; Start 08/06/17 at 09:00 Divalproex Sodium (Depakote Sprinkles) 375 mg TID PO Last administered on 19:34; Start 08/06/17 at 14:00 Docusate Calcium (Surfak) 240 mg DAILY PO Last administered on 08/11/17 07:59; Start 08/07/17 at 09:00 Magnesium Citrate (Citroma) 296 ml PRN DAILY PRN PO CONSTIPATION Last administered on 08/09/17 09:15; Start 08/07/17 at 15:30 Trazodone HCl (Desyrel) 100 mg PRN QHS PRN PO INSOMNIA; Start 08/10/17 at 18:45 Trazodone HCl (Desyrel) 100 mg QHS PO Last administered on 08/11/17 19:34; Start 08/10/17 at 21:00 Hydroxyzine Pamoate (Vistaril) 50 mg PRN Q2HR PRN PO ANXIETY; Start 08/11/17 at 18:45 Active Scripts Active Reported Thiamine Hcl 100 Mg Tablet 100 Mg PO DAILY Olanzapine 5 Mg Tablet 1 Tab PO QHS Folic Acid 1 Mg Tablet 1 Tab PO DAILY Lovenox (Enoxaparin Sodium) 40 Mg/0.4 Ml Disp.syrin 0.4 Ml SQ DAILY Lisinopril 40 Mg Tablet 20 Mg PO BID Novolog Flexpen (Insulin Aspart) 100 Unit/1 Ml Insuln.pen 0-7 Unit SQ TIDAC Novolog Flexpen (Insulin Aspart) 100 Unit/1 Ml Insuln.pen 15 Unit SQ TIDAC Metoprolol Tartrate 25 Mg Tablet 100 Mg PO BID Lantus Solostar (Insulin Glargine,Hum.rec.anlog) 100 Unit/1 Ml Insuln.pen 30 Unit SQ BID Gabapentin 100 Mg Capsule 100 Mg PO TID I have reviewed the current psychotropics carefully including drug interactions. Risk benefit ratio favors no change other than as noted in my dictated progress note. Diagnosis: Problems: (1) Anxiety disorder (2) Impulse control disorder (3) Bipolar affective disorder, mixed (4) Dementia, vascular, with delusions (5) Dementia with behavioral disturbance LIZ DIANE MD Aug 11, 2017 20:57
--- NOTE | 2017-08-11 22:07 | PN ---
DATE: 08/10/2017 This late entry 08/10/2017 covers elements not covered in my initial note 08/10/2017. Met with the patient in the evening of 08/10/2017. The patient slept 5 hours previous evening, agitated at night, wants to go to an assisted living. Dr. Mathis has done psychological testing indicating he needs guardian or someone to make decisions for him. He has been somewhat drowsy. REVIEW OF SYSTEMS: Ambulation impaired with walker. No CV, , pulmonary, eye, ENT system symptoms on review. MENTAL STATUS EXAM: Oriented to himself and situation. Speech is coherent, has some latency. Abstraction fair, computation impaired, language function intact, attention span short. Mood and affect, somewhat anxious, but not aggressive. No sexually inappropriate behaviors. LABORATORY DATA: Reviewed. IMPRESSION: Bipolar 1 disorder, mixed cognitive disorder, unspecified versus major neurocognitive disorder, Alzheimer, vascular with delusion. PLAN: Increase trazodone to 100 mg at bedtime, september repeat x 1. Rest unchanged. MAN Newton DIANE MD DR: MATILDA/james JOB#: [id number] / [id number]
--- NOTE | 2017-08-12 00:30 | PN ---
DATE: SUBJECTIVE: The patient is a 72-year-old male patient, whom I have seen today as nursing staff are concerned that he has marked bilateral lower limb edema. However, when questioning him, he denied any complaint, in particular denied any chest pain, denied any shortness of breath, orthopnea, or paroxysmal nocturnal dyspnea. Denied any cough, phlegm or hemoptysis. PAST MEDICAL HISTORY: Significant for coronary artery disease, congestive heart failure, hypertension, hyperlipidemia. He is also known to have type 2 diabetes and has apparently history of alcohol abuse. PHYSICAL EXAMINATION: GENERAL: When I examined him this afternoon, he looked well and was slightly pale, but no jaundice, cyanosis, or thyromegaly. No jugular venous distension. He has marked 3+ bilateral lower limb edema. VITAL SIGNS: His heart rate was 55, blood pressure was 152/66, temperature was 98.3, respiratory rate was 18 and oxygen saturation was 97% on room air. HEAD, EYES, EARS, NOSE AND THROAT: Showed normocephalic, atraumatic. NECK: Supple. HEART: Showed normal first and second heart sounds. No gallop, rub or murmur. CHEST: Clear to auscultation. No crepitation or rhonchi. ABDOMEN: Distended, soft, and nontender. No guarding or rigidity. No organomegaly. Hernial orifice intact. Bowel sounds normal. NEUROLOGIC: He is awake, alert, responding appropriately. Cranial nerves are intact. He moves extremities without difficulty, ambulates with a walker. His intake over the last 24 hours was 1900, no output was recorded. LABORATORY DATA: His lab work this morning showed a serum sodium of 144, potassium 4.1, chloride 109, bicarbonate 28, anion gap of 7, BUN 16, creatinine 0.9, estimated GFR was 83 mL per minute. His glucose was 126, calcium was 8.3. Total bilirubin, AST, ALT, and alkaline phosphatase were normal. Total protein was 6, albumin 3. His hemoglobin A1c was 9.5. His serum iron was 120, total iron binding capacity was 343 and percent saturation was 35. His thyroid function tests including T3, T4, and TSH are all within normal range. His vitamin D is 32.5. Vitamin B12 was 323 pg/mL. We did actually arrange for him to have a bilateral venous Doppler ultrasound, which showed there is no sonographic evidence of deep vein thrombosis in either lower extremity. In summary, this is a 72-year-old male patient, who has marked bilateral lower extremities most likely lymphedema. He does not seem to have any evidence of clinically congestive heart failure. He is asymptomatic. He has no orthopnea or paroxysmal dyspnea. Denied any shortness of breath and he is able to walk for long distance without any dyspnea. His oxygen saturation was 99% oxygen on room air. His serum albumin is on the lower side and obviously nephrotic syndrome is a possibility as he is diabetic and his diabetes is poorly controlled. His hemoglobin A1c was 9.5%. I will do 24-hour urine collection for proteinuria to see whether that might explain his swollen legs. LIGIA HORTA MD DR: ROLANDO/james JOB#: [id number] / [id number]
[2017-08-12 06:03] VITALS: BP 165/55
[2017-08-12] MEDS: INSULIN ASPART 300 UNITS/3 ML INSULN.PEN SQ SCH ×6 (07:30→17:10)
[2017-08-12] MEDS: METOPROLOL TART IMMED RELEASE 50 MG TABLET PO SCH ×2 (07:51→19:21)
[2017-08-12] MEDS: DIVALPROEX 125 MG CAP.SPRINK PO SCH ×3 (07:51→19:20)
[2017-08-12] MEDS: DOCUSATE CALCIUM 240 MG CAPSULE PO SCH (07:51)
[2017-08-12] MEDS: LISINOPRIL 20 MG TABLET PO SCH ×2 (07:52→19:21)
[2017-08-12] MEDS: THIAMINE 100 MG TABLET. PO SCH (07:52)
[2017-08-12] MEDS: medroxyPROGESTERone 5 MG TABLET PO SCH (07:52)
[2017-08-12] MEDS: busPIRone 5 MG TABLET. PO SCH ×3 (07:52→17:10)
[2017-08-12] MEDS: GABAPENTIN 100 MG CAPSULE. PO SCH ×3 (07:52→19:22)
[2017-08-12] MEDS: FOLIC ACID 1 MG TABLET PO SCH (07:52)
[2017-08-12] MEDS: NYSTATIN TOPICAL POWDER 15GM BOTTLE. TP SCH ×2 (07:54→19:23)
[2017-08-12] MEDS: INSULIN DETEMIR 300 UNITS/3 ML INSULN.PEN. SQ SCH ×2 (08:00→19:26)
[2017-08-12 16:07] VITALS: BP 166/82
[2017-08-12] MEDS: traZODone 100 MG TABLET. PO SCH (19:21)
[2017-08-12] MEDS: MELATONIN 3 MG TABLET PO SCH (19:22)
[2017-08-12] MEDS: QUEtiapine 50 MG TABLET. PO SCH (19:22)
--- NOTE | 2017-08-12 20:56 | PDOC ---
Exam Note: Adriano Note: Please also refer to the separate dictated note~for this date of service dictated separately.~Patient seen individually. Discussed the patient with Nursing staff reviewed the chart.~Reviewed interim history and current functioning. Reviewed vital signs,~Labs/ Radiology~and current medications noted below. Continue current treatment with the changes noted in the dictated addendum note Assessment: Vital Signs: Vital Signs Date Time Temp Pulse Resp B/P (MAP) Pulse Ox O2 Delivery O2 Flow Rate FiO2 08/12/17 19:21 50 166/82 08/12/17 16:07 98.5 16 97 Room Air I&O Intake and Output 08/12/17 07:00 Intake Total 1460 ml Balance 1460 ml Intake Oral 1460 ml # Voids 1 Labs: Laboratory Tests Test 08/12/17 07:08 08/12/17 11:49 08/12/17 16:36 08/12/17 18:57 Glucose (Fingerstick) 104 mg/dL (70-99) H 173 mg/dL (70-99) H 209 mg/dL (70-99) H 243 mg/dL (70-99) H Current Medications: Meds: Current Medications Olanzapine (ZyPREXA) 5 mg QHS PO Last administered on 07/28/17 20:43; Start at 21:00; Stop 07/29/17 at 18:42; Status DC Gabapentin (Neurontin) 100 mg TID PO Last administered on 08/12/17 19:22; Start 07/28/17 at 21:00 Metoprolol Tartrate (Lopressor) 100 mg BID PO Last administered on 08/12/17 19: 21; Start 07/28/17 at 21:00 Insulin Detemir (Levemir) 30 units BID SQ Last administered on 08/12/17 19:26; Start 07/28/17 at 21:00 Lisinopril (Prinivil) 20 mg BID PO Last administered on 08/12/17 19:21; Start 07/28/17 at 21:00 Insulin Aspart (NovoLOG) 0-7 UNITS TIDAC SQ Last administered on 08/12/17at 17:10 ; Start 07/29/17 at 11:30 Dextrose 12.5 gm PRN Q15MIN PRN IV SEE COMMENTS; Start 07/29/17 at 09:15 Nicotine Polacrilex (Nicorette Gum) 2 mg PRN Q2HR PRN BC SMOKING CESSATION Last administered on 08/07/17 13:47; Start 07/29/17 at 10:45 Folic Acid (Folic Acid) 1 mg DAILY PO Last administered on 08/12/17 07:52; Start 07/30/17 at 09:00 Insulin Aspart (NovoLOG) 15 units TIDAC SQ Last administered on 08/12/17 17:10 ; Start 07/29/17 at 16:30 Thiamine HCl (Vitamin B-1) 100 mg DAILY PO Last administered on 08/12/17 07:52 ; Start 07/30/17 at 09:00 Quetiapine Fumarate (SEROquel) 50 mg HS PO Last administered on 08/12/17 19:22 ; Start 07/29/17 at 21:00 Medroxyprogesterone Acetate (Provera) 2.5 mg DAILY PO Last administered on 08/01 07:25; Start 07/30/17 at 09:00; Stop 08/02/17 at 08:59; Status DC Olanzapine (ZyPREXA ZYDIS) 2.5 mg PRN Q2HR PRN PO PSYCHOSIS Last administered on 08/05/17at 11:32; Start 07/29/17 at 18:45 Divalproex Sodium (Depakote Sprinkles) 125 mg TID PO Last administered on 13:11; Start 07/30/17 at 14:00; Stop 08/03/17 at 18:52; Status DC Medroxyprogesterone Acetate (Provera) 5 mg DAILY PO Last administered on 07:54; Start 08/02/17 at 09:00; Stop 08/02/17 at 21:43; Status DC Trazodone HCl (Desyrel) 50 mg QHS PO Last administered on 08/09/17 20:43; Start 07/31/17 at 21:00; Stop 08/10/17 at 18:36; Status DC Trazodone HCl (Desyrel) 50 mg PRN QHS PRN PO INSOMNIA Last administered on 22:09; Start 07/31/17 at 18:15; Stop 08/10/17 at 18:37; Status DC Magnesium Hydroxide (Milk Of Magnesia) 2,400 mg PRN DAILY PRN PO CONSTIPATION Last administered on 08/06/17 18:26; Start 08/02/17 at 19:45 Medroxyprogesterone Acetate (Provera) 7.5 mg DAILY PO Last administered on 08/06 08:48; Start 08/03/17 at 09:00; Stop 08/07/17 at 08:59; Status DC Divalproex Sodium (Depakote Sprinkles) 250 mg TID PO Last administered on 08:48; Start 08/03/17 at 21:00; Stop 08/06/17 at 10:54; Status DC Melatonin 3 mg QHS PO Last administered on 08/12/17 19:22; Start 08/03/17 at 21 :00 Nystatin (Nystop) 1 danielle BID TP Last administered on 08/12/17 19:23; Start 08/04 at 21:00 Medroxyprogesterone Acetate (Provera) 10 mg DAILY PO Last administered on 07:52; Start 08/07/17 at 09:00 Buspirone HCl (Buspar) 5 mg 0900,1300,1700 PO Last administered on 08/12/17 17: 10; Start 08/06/17 at 09:00 Divalproex Sodium (Depakote Sprinkles) 375 mg TID PO Last administered on 19:20; Start 08/06/17 at 14:00 Docusate Calcium (Surfak) 240 mg DAILY PO Last administered on 08/12/17 07:51; Start 08/07/17 at 09:00 Magnesium Citrate (Citroma) 296 ml PRN DAILY PRN PO CONSTIPATION Last administered on 08/09/17 09:15; Start 08/07/17 at 15:30 Trazodone HCl (Desyrel) 100 mg PRN QHS PRN PO INSOMNIA; Start 08/10/17 at 18:45 Trazodone HCl (Desyrel) 100 mg QHS PO Last administered on 08/12/17 19:21; Start 08/10/17 at 21:00 Hydroxyzine Pamoate (Vistaril) 50 mg PRN Q2HR PRN PO ANXIETY; Start 08/11/17 at 18:45 Active Scripts Active Reported Thiamine Hcl 100 Mg Tablet 100 Mg PO DAILY Olanzapine 5 Mg Tablet 1 Tab PO QHS Folic Acid 1 Mg Tablet 1 Tab PO DAILY Lovenox (Enoxaparin Sodium) 40 Mg/0.4 Ml Disp.syrin 0.4 Ml SQ DAILY Lisinopril 40 Mg Tablet 20 Mg PO BID Novolog Flexpen (Insulin Aspart) 100 Unit/1 Ml Insuln.pen 0-7 Unit SQ TIDAC Novolog Flexpen (Insulin Aspart) 100 Unit/1 Ml Insuln.pen 15 Unit SQ TIDAC Metoprolol Tartrate 25 Mg Tablet 100 Mg PO BID Lantus Solostar (Insulin Glargine,Hum.rec.anlog) 100 Unit/1 Ml Insuln.pen 30 Unit SQ BID Gabapentin 100 Mg Capsule 100 Mg PO TID I have reviewed the current psychotropics carefully including drug interactions. Risk benefit ratio favors no change other than as noted in my dictated progress note. Diagnosis: Problems: (1) Anxiety disorder (2) Impulse control disorder (3) Bipolar affective disorder, mixed (4) Dementia, vascular, with delusions (5) Dementia with behavioral disturbance LIZ DIANE MD Aug 12, 2017 20:56
--- NOTE | 2017-08-12 21:15 | PN ---
DATE: 08/11/2017 PSYCHIATRIC PROGRESS NOTE This late entry 08/11/2017 covers elements not covered in my initial note of 08/11/2017. SUBJECTIVE: Met with the patient in the evening of 08/11/2017. The patient slept 6-3/4 hours previous evening. He remains somewhat anxious, labile, demanding at times, stating he just walked away, wants to leave, feels he can just live in a homeless fpc or find a hotel to live with, addressed this with him individually. Compliant with medications. REVIEW OF SYSTEMS: Ambulation is impaired with walker. No CV, , pulmonary, eye, ENT system symptoms on review. MENTAL STATUS EXAM: Oriented to himself with time, situation. Speech is coherent, has some latency. Abstraction is fair, computation impaired, language function intact, attention span short. Mood and affect is somewhat labile at times. LABORATORY DATA: Reviewed. IMPRESSION: Bipolar 1 disorder, mixed with psychotic features; major neurocognitive disorder, early Alzheimer, vascular with delusion; depression. Rest is unchanged from initial note. PLAN: Continue psychotropics mentioned in my initial note including Provera 10 mg a day. MAN Newton DIANE MD DR: MATILDA/james JOB#: [id number] / [id number]
[2017-08-13 05:44] VITALS: BP 178/75
[2017-08-13] MEDS: INSULIN ASPART 300 UNITS/3 ML INSULN.PEN SQ SCH ×6 (07:30→17:31)
[2017-08-13] MEDS: DOCUSATE CALCIUM 240 MG CAPSULE PO SCH (08:58)
[2017-08-13] MEDS: GABAPENTIN 100 MG CAPSULE. PO SCH ×3 (08:58→20:43)
[2017-08-13] MEDS: medroxyPROGESTERone 5 MG TABLET PO SCH (08:58)
[2017-08-13] MEDS: FOLIC ACID 1 MG TABLET PO SCH (08:59)
[2017-08-13] MEDS: THIAMINE 100 MG TABLET. PO SCH (08:59)
[2017-08-13] MEDS: busPIRone 5 MG TABLET. PO SCH ×3 (08:59→17:27)
[2017-08-13] MEDS: LISINOPRIL 20 MG TABLET PO SCH ×2 (08:59→20:49)
[2017-08-13] MEDS: DIVALPROEX 125 MG CAP.SPRINK PO SCH ×3 (08:59→20:43)
[2017-08-13] MEDS: METOPROLOL TART IMMED RELEASE 50 MG TABLET PO SCH ×2 (08:59→20:49)
[2017-08-13] MEDS: INSULIN DETEMIR 300 UNITS/3 ML INSULN.PEN. SQ SCH ×2 (09:01→20:51)
[2017-08-13] MEDS: NYSTATIN TOPICAL POWDER 15GM BOTTLE. TP SCH ×2 (09:02→21:00)
[2017-08-13 16:25] VITALS: BP 95/55
[2017-08-13] MEDS: QUEtiapine 50 MG TABLET. PO SCH (20:43)
[2017-08-13] MEDS: traZODone 100 MG TABLET. PO SCH (20:43)
[2017-08-13] MEDS: MELATONIN 3 MG TABLET PO SCH (20:43)
--- NOTE | 2017-08-13 20:55 | PDOC ---
Exam Note: Adriano Note: Please also refer to the separate dictated note~for this date of service dictated separately.~Patient seen individually. Discussed the patient with Nursing staff reviewed the chart.~Reviewed interim history and current functioning. Reviewed vital signs,~Labs/ Radiology~and current medications noted below. Continue current treatment with the changes noted in the dictated addendum note Assessment: Vital Signs: Vital Signs Date Time Temp Pulse Resp B/P (MAP) Pulse Ox O2 Delivery O2 Flow Rate FiO2 08/13/17 20:49 61 176/69 08/13/17 16:25 97.7 14 92 08/12/17 16:07 Room Air I&O Intake and Output 08/13/17 07:00 Intake Total 1320 ml Balance 1320 ml Intake Oral 1320 ml # Voids 1 Labs: Laboratory Tests Test 08/13/17 07:09 08/13/17 11:12 08/13/17 16:44 08/13/17 18:59 Glucose (Fingerstick) 148 mg/dL (70-99) H 196 mg/dL (70-99) H 231 mg/dL (70-99) H 259 mg/dL (70-99) H Current Medications: Meds: Current Medications Olanzapine (ZyPREXA) 5 mg QHS PO Last administered on 07/28/17 20:43; Start at 21:00; Stop 07/29/17 at 18:42; Status DC Gabapentin (Neurontin) 100 mg TID PO Last administered on 08/13/17 20:43; Start 07/28/17 at 21:00 Metoprolol Tartrate (Lopressor) 100 mg BID PO Last administered on 08/13/17 20: 49; Start 07/28/17 at 21:00 Insulin Detemir (Levemir) 30 units BID SQ Last administered on 08/13/17 20:51; Start 07/28/17 at 21:00 Lisinopril (Prinivil) 20 mg BID PO Last administered on 08/13/17 20:49; Start 07/28/17 at 21:00 Insulin Aspart (NovoLOG) 0-7 UNITS TIDAC SQ Last administered on 08/13/17at 17:29 ; Start 07/29/17 at 11:30 Dextrose 12.5 gm PRN Q15MIN PRN IV SEE COMMENTS; Start 07/29/17 at 09:15 Nicotine Polacrilex (Nicorette Gum) 2 mg PRN Q2HR PRN BC SMOKING CESSATION Last administered on 08/07/17at 13:47; Start 07/29/17 at 10:45 Folic Acid (Folic Acid) 1 mg DAILY PO Last administered on 08/13/17 08:59; Start 07/30/17 at 09:00 Insulin Aspart (NovoLOG) 15 units TIDAC SQ Last administered on 08/13/17 17:31 ; Start 07/29/17 at 16:30 Thiamine HCl (Vitamin B-1) 100 mg DAILY PO Last administered on 08/13/17 08:59 ; Start 07/30/17 at 09:00 Quetiapine Fumarate (SEROquel) 50 mg HS PO Last administered on 08/13/17 20:43 ; Start 07/29/17 at 21:00 Medroxyprogesterone Acetate (Provera) 2.5 mg DAILY PO Last administered on 08/01 07:25; Start 07/30/17 at 09:00; Stop 08/02/17 at 08:59; Status DC Olanzapine (ZyPREXA ZYDIS) 2.5 mg PRN Q2HR PRN PO PSYCHOSIS Last administered on 08/05/17at 11:32; Start 07/29/17 at 18:45 Divalproex Sodium (Depakote Sprinkles) 125 mg TID PO Last administered on 13:11; Start 07/30/17 at 14:00; Stop 08/03/17 at 18:52; Status DC Medroxyprogesterone Acetate (Provera) 5 mg DAILY PO Last administered on at 07:54; Start 08/02/17 at 09:00; Stop 08/02/17 at 21:43; Status DC Trazodone HCl (Desyrel) 50 mg QHS PO Last administered on 08/09/17 20:43; Start 07/31/17 at 21:00; Stop 08/10/17 at 18:36; Status DC Trazodone HCl (Desyrel) 50 mg PRN QHS PRN PO INSOMNIA Last administered on 22:09; Start 07/31/17 at 18:15; Stop 08/10/17 at 18:37; Status DC Magnesium Hydroxide (Milk Of Magnesia) 2,400 mg PRN DAILY PRN PO CONSTIPATION Last administered on 08/06/17 18:26; Start 08/02/17 at 19:45 Medroxyprogesterone Acetate (Provera) 7.5 mg DAILY PO Last administered on 08/06 08:48; Start 08/03/17 at 09:00; Stop 08/07/17 at 08:59; Status DC Divalproex Sodium (Depakote Sprinkles) 250 mg TID PO Last administered on 08:48; Start 08/03/17 at 21:00; Stop 08/06/17 at 10:54; Status DC Melatonin 3 mg QHS PO Last administered on 08/13/17 20:43; Start 08/03/17 at 21 :00 Nystatin (Nystop) 1 danielle BID TP Last administered on 08/13/17 09:02; Start 08/04 at 21:00 Medroxyprogesterone Acetate (Provera) 10 mg DAILY PO Last administered on 08:58; Start 08/07/17 at 09:00 Buspirone HCl (Buspar) 5 mg 0900,1300,1700 PO Last administered on 08/13/17 17: 27; Start 08/06/17 at 09:00 Divalproex Sodium (Depakote Sprinkles) 375 mg TID PO Last administered on 20:43; Start 08/06/17 at 14:00 Docusate Calcium (Surfak) 240 mg DAILY PO Last administered on 08/13/17 08:58; Start 08/07/17 at 09:00 Magnesium Citrate (Citroma) 296 ml PRN DAILY PRN PO CONSTIPATION Last administered on 08/09/17 09:15; Start 08/07/17 at 15:30 Trazodone HCl (Desyrel) 100 mg PRN QHS PRN PO INSOMNIA; Start 08/10/17 at 18:45 Trazodone HCl (Desyrel) 100 mg QHS PO Last administered on 08/13/17 20:43; Start 08/10/17 at 21:00 Hydroxyzine Pamoate (Vistaril) 50 mg PRN Q2HR PRN PO ANXIETY; Start 08/11/17 at 18:45 Active Scripts Active Reported Thiamine Hcl 100 Mg Tablet 100 Mg PO DAILY Olanzapine 5 Mg Tablet 1 Tab PO QHS Folic Acid 1 Mg Tablet 1 Tab PO DAILY Lovenox (Enoxaparin Sodium) 40 Mg/0.4 Ml Disp.syrin 0.4 Ml SQ DAILY Lisinopril 40 Mg Tablet 20 Mg PO BID Novolog Flexpen (Insulin Aspart) 100 Unit/1 Ml Insuln.pen 0-7 Unit SQ TIDAC Novolog Flexpen (Insulin Aspart) 100 Unit/1 Ml Insuln.pen 15 Unit SQ TIDAC Metoprolol Tartrate 25 Mg Tablet 100 Mg PO BID Lantus Solostar (Insulin Glargine,Hum.rec.anlog) 100 Unit/1 Ml Insuln.pen 30 Unit SQ BID Gabapentin 100 Mg Capsule 100 Mg PO TID I have reviewed the current psychotropics carefully including drug interactions. Risk benefit ratio favors no change other than as noted in my dictated progress note. Diagnosis: Problems: (1) Anxiety disorder (2) Impulse control disorder (3) Bipolar affective disorder, mixed (4) Dementia, vascular, with delusions (5) Dementia with behavioral disturbance LIZ DIANE MD Aug 13, 2017 20:55
[2017-08-14 06:22] VITALS: BP 162/72
[2017-08-14 07:22] LABS: BASO % 1 % (0-3); EOS # 0.2 x10^3/uL (0.0-0.7); EOS % 3 % (0-3); HEMATOCRIT 39.5 % (39.0-53.0); HEMOGLOBIN 13.5 g/dL (13.0-17.5); LYMPH # 1.5 x10^3/uL (1.0-4.8); LYMPH % 23 % (24-48); MEAN CORPUSCULAR HEMOGLOBIN 31 pg (25-35); MEAN CORPUSCULAR HGB CONC 34 g/dL (31-37); MEAN CORPUSCULAR VOLUME 92 fL (79-100); MONO # 0.5 x10^3/uL (0.0-1.1); MONO % 8 % (0-9); NEUT # 4.1 x10^3uL (1.8-7.7); NEUT % 65 % (31-73); PLATELET COUNT 130 x10^3/uL (140-400); RED BLOOD COUNT 4.31 x10^6/uL (4.30-5.70); WHITE BLOOD COUNT 6.3 x10^3/uL (4.0-11.0)
[2017-08-14] MEDS: INSULIN ASPART 300 UNITS/3 ML INSULN.PEN SQ SCH ×6 (07:30→17:14)
[2017-08-14 07:35] LABS: ALBUMIN/GLOBULIN RATIO 0.8 (1.0-1.7); ALK PHOS 56 U/L (46-116); ALT (SGPT) 23 U/L (16-63); ANION GAP 8 (6-14); AST (SGOT) 11 U/L (15-37); BLOOD UREA NITROGEN 16 mg/dL (8-26); BUN/CREATININE RATIO 16 (6-20); CALCIUM 8.6 mg/dL (8.5-10.1); CARBON DIOXIDE 28 mmol/L (21-32); CHLORIDE 108 mmol/L (98-107); GFR 73.2; GLUCOSE 146 mg/dL (70-99); POTASSIUM 4.3 mmol/L (3.5-5.1); SODIUM 144 mmol/L (136-145); TOTAL BILIRUBIN 0.3 mg/dL (0.2-1.0); TOTAL PROTEIN 6.6 g/dL (6.4-8.2)
[2017-08-14 07:37] LABS: VAL ACID 50 mcg/mL (50-100)
[2017-08-14] MEDS: DOCUSATE CALCIUM 240 MG CAPSULE PO SCH (08:34)
[2017-08-14] MEDS: GABAPENTIN 100 MG CAPSULE. PO SCH ×3 (08:34→20:49)
[2017-08-14] MEDS: THIAMINE 100 MG TABLET. PO SCH (08:34)
[2017-08-14] MEDS: DIVALPROEX 125 MG CAP.SPRINK PO SCH ×3 (08:34→20:48)
[2017-08-14] MEDS: LISINOPRIL 20 MG TABLET PO SCH ×2 (08:34→20:46)
[2017-08-14] MEDS: medroxyPROGESTERone 5 MG TABLET PO SCH (08:34)
[2017-08-14] MEDS: METOPROLOL TART IMMED RELEASE 50 MG TABLET PO SCH ×2 (08:34→20:48)
[2017-08-14] MEDS: FOLIC ACID 1 MG TABLET PO SCH (08:34)
[2017-08-14] MEDS: NYSTATIN TOPICAL POWDER 15GM BOTTLE. TP SCH ×2 (08:36→20:49)
[2017-08-14] MEDS: busPIRone 5 MG TABLET. PO SCH ×3 (08:36→17:15)
[2017-08-14] MEDS: INSULIN DETEMIR 300 UNITS/3 ML INSULN.PEN. SQ SCH ×2 (08:42→20:49)
[2017-08-14 15:54] VITALS: BP 168/63
[2017-08-14] MEDS: MELATONIN 3 MG TABLET PO SCH (20:48)
[2017-08-14] MEDS: traZODone 100 MG TABLET. PO SCH (20:49)
[2017-08-14] MEDS: QUEtiapine 50 MG TABLET. PO SCH (20:49)
--- NOTE | 2017-08-14 22:40 | PN ---
DATE: 08/12/2017 PSYCHIATRIC PROGRESS NOTE This late entry 08/12/2017 covers elements not covered in my initial note of 08/12/2017. SUBJECTIVE: Met with the patient in the evening of 08/12/2017. The patient slept 5-1/2 hours previous evening. He has had no more sexually inappropriate comments and behaviors the previous night or during the day on 08/12/2017. On night of 08/12/2017, he made a statement to the nursing staff that he did not care if he , does not care about his blood sugars and will refuse his insulin because he is wanting to be discharged, to go, live in a homeless group home or on the street or find a motel to spend a few nights. Somewhat inappropriate in his thought process he is in, ability to make decisions in his best interest. ____ has completed the psychological testing indicating he needs a DPOA to assist him in making decisions. REVIEW OF SYSTEMS: Ambulation is impaired with walker. No CV, , pulmonary, eye, ENT system symptoms on review. MENTAL STATUS EXAM: Oriented to himself, situation, has some short-term memory deficits. Speech is coherent, abstraction fair, computation impaired, language function intact, attention span short. Mood and affect at times labile, depressed. LABORATORY DATA: Reviewed. IMPRESSION: Bipolar 1 disorder, mixed with psychotic features; major depressive disorder, recurrent, in partial remission; major neurocognitive disorder, early Alzheimer, vascular with delusions. PLAN: Continue psychotropics mentioned in my initial note. We will see whether the DPOA can be activated by his son to step in to help make decisions for him. Discussed with social service staff. MAN Newton DIANE MD DR: MATILDA/james JOB#: [id number] / [id number]
--- NOTE | 2017-08-14 23:17 | PDOC ---
Exam Note: Adriano Note: Please also refer to the separate dictated note~for this date of service dictated separately.~Patient seen individually. Discussed the patient with Nursing staff reviewed the chart.~Reviewed interim history and current functioning. Reviewed vital signs,~Labs/ Radiology~and current medications noted below. Continue current treatment with the changes noted in the dictated addendum note Assessment: Vital Signs: Vital Signs Date Time Temp Pulse Resp B/P (MAP) Pulse Ox O2 Delivery O2 Flow Rate FiO2 08/14/17 20:48 56 168/63 08/14/17 15:54 98.4 18 100 08/12/17 16:07 Room Air I&O Intake and Output 08/14/17 07:00 Intake Total 1320 ml Balance 1320 ml Intake Oral 1320 ml Labs: Laboratory Tests Test 08/14/17 07:08 08/14/17 07:21 08/14/17 11:16 08/14/17 16:25 White Blood Count 6.3 x10^3/uL (4.0-11.0) Red Blood Count 4.31 x10^6/uL (4.30-5.70) Hemoglobin 13.5 g/dL (13.0-17.5) Hematocrit 39.5 % (39.0-53.0) Mean Corpuscular Volume 92 fL (79-100) Mean Corpuscular Hemoglobin 31 pg (25-35) Mean Corpuscular Hemoglobin Concent 34 g/dL (31-37) Red Cell Distribution Width 14.0 % (11.5-14.5) Platelet Count 130 x10^3/uL (140-400) L Neutrophils (%) (Auto) 65 % (31-73) Lymphocytes (%) (Auto) 23 % (24-48) L Monocytes (%) (Auto) 8 % (0-9) Eosinophils (%) (Auto) 3 % (0-3) Basophils (%) (Auto) 1 % (0-3) Neutrophils # (Auto) 4.1 x10^3uL (1.8-7.7) Lymphocytes # (Auto) 1.5 x10^3/uL (1.0-4.8) Monocytes # (Auto) 0.5 x10^3/uL (0.0-1.1) Eosinophils # (Auto) 0.2 x10^3/uL (0.0-0.7) Basophils # (Auto) 0.0 x10^3/uL (0.0-0.2) Sodium Level 144 mmol/L (136-145) Potassium Level 4.3 mmol/L (3.5-5.1) Chloride Level 108 mmol/L (98-107) H Carbon Dioxide Level 28 mmol/L (21-32) Anion Gap 8 (6-14) Blood Urea Nitrogen 16 mg/dL (8-26) Creatinine 1.0 mg/dL (0.7-1.3) Estimated GFR (Cockcroft-Gault) 73.2 BUN/Creatinine Ratio 16 (6-20) Glucose Level 146 mg/dL (70-99) H Calcium Level 8.6 mg/dL (8.5-10.1) Total Bilirubin 0.3 mg/dL (0.2-1.0) Aspartate Amino Transferase (AST) 11 U/L (15-37) L Alanine Aminotransferase (ALT) 23 U/L (16-63) Alkaline Phosphatase 56 U/L (46-116) Total Protein 6.6 g/dL (6.4-8.2) Albumin 3.0 g/dL (3.4-5.0) L Albumin/Globulin Ratio 0.8 (1.0-1.7) L Valproic Acid Level 50 mcg/mL (50-100) Valproic Acid Last Dose Date 08/13/17 Valproic Acid Last Dose Time 2100 Glucose (Fingerstick) 140 mg/dL (70-99) H 180 mg/dL (70-99) H 207 mg/dL (70-99) H Test 08/14/17 19:04 Glucose (Fingerstick) 238 mg/dL (70-99) H Current Medications: Meds: Current Medications Olanzapine (ZyPREXA) 5 mg QHS PO Last administered on 07/28/17at 20:43; Start at 21:00; Stop 07/29/17 at 18:42; Status DC Gabapentin (Neurontin) 100 mg TID PO Last administered on 08/14/17at 20:49; Start 07/28/17 at 21:00 Metoprolol Tartrate (Lopressor) 100 mg BID PO Last administered on 08/14/17at 20: 48; Start 07/28/17 at 21:00 Insulin Detemir (Levemir) 30 units BID SQ Last administered on 08/14/17 20:49; Start 07/28/17 at 21:00 Lisinopril (Prinivil) 20 mg BID PO Last administered on 08/14/17 20:46; Start 07/28/17 at 21:00 Insulin Aspart (NovoLOG) 0-7 UNITS TIDAC SQ Last administered on 08/14/17 17:14 ; Start 07/29/17 at 11:30 Dextrose 12.5 gm PRN Q15MIN PRN IV SEE COMMENTS; Start 07/29/17 at 09:15 Nicotine Polacrilex (Nicorette Gum) 2 mg PRN Q2HR PRN BC SMOKING CESSATION Last administered on 08/07/17 13:47; Start 07/29/17 at 10:45 Folic Acid (Folic Acid) 1 mg DAILY PO Last administered on 08/14/17 08:34; Start 07/30/17 at 09:00 Insulin Aspart (NovoLOG) 15 units TIDAC SQ Last administered on 08/14/17 17:13 ; Start 07/29/17 at 16:30 Thiamine HCl (Vitamin B-1) 100 mg DAILY PO Last administered on 08/14/17 08:34 ; Start 07/30/17 at 09:00 Quetiapine Fumarate (SEROquel) 50 mg HS PO Last administered on 08/14/17 20:49 ; Start 07/29/17 at 21:00 Medroxyprogesterone Acetate (Provera) 2.5 mg DAILY PO Last administered on 08/01 07:25; Start 07/30/17 at 09:00; Stop 08/02/17 at 08:59; Status DC Olanzapine (ZyPREXA ZYDIS) 2.5 mg PRN Q2HR PRN PO PSYCHOSIS Last administered on 08/05/17 11:32; Start 07/29/17 at 18:45 Divalproex Sodium (Depakote Sprinkles) 125 mg TID PO Last administered on 13:11; Start 07/30/17 at 14:00; Stop 08/03/17 at 18:52; Status DC Medroxyprogesterone Acetate (Provera) 5 mg DAILY PO Last administered on 3/25/ 18at 07:54; Start 08/02/17 at 09:00; Stop 08/02/17 at 21:43; Status DC Trazodone HCl (Desyrel) 50 mg QHS PO Last administered on 08/09/17 20:43; Start 07/31/17 at 21:00; Stop 08/10/17 at 18:36; Status DC Trazodone HCl (Desyrel) 50 mg PRN QHS PRN PO INSOMNIA Last administered on 22:09; Start 07/31/17 at 18:15; Stop 08/10/17 at 18:37; Status DC Magnesium Hydroxide (Milk Of Magnesia) 2,400 mg PRN DAILY PRN PO CONSTIPATION Last administered on 08/06/17 18:26; Start 08/02/17 at 19:45 Medroxyprogesterone Acetate (Provera) 7.5 mg DAILY PO Last administered on 08/06 08:48; Start 08/03/17 at 09:00; Stop 08/07/17 at 08:59; Status DC Divalproex Sodium (Depakote Sprinkles) 250 mg TID PO Last administered on 08:48; Start 08/03/17 at 21:00; Stop 08/06/17 at 10:54; Status DC Melatonin 3 mg QHS PO Last administered on 08/14/17 20:48; Start 08/03/17 at 21 :00 Nystatin (Nystop) 1 danielle BID TP Last administered on 08/14/17 20:49; Start 08/04 at 21:00 Medroxyprogesterone Acetate (Provera) 10 mg DAILY PO Last administered on 08:34; Start 08/07/17 at 09:00 Buspirone HCl (Buspar) 5 mg 0900,1300,1700 PO Last administered on 08/14/17 17: 15; Start 08/06/17 at 09:00 Divalproex Sodium (Depakote Sprinkles) 375 mg TID PO Last administered on 12:52; Start 08/06/17 at 14:00; Stop 08/14/17 at 18:27; Status DC Docusate Calcium (Surfak) 240 mg DAILY PO Last administered on 4/6/18at 08:34; Start 08/07/17 at 09:00 Magnesium Citrate (Citroma) 296 ml PRN DAILY PRN PO CONSTIPATION Last administered on 08/09/17at 09:15; Start 08/07/17 at 15:30 Trazodone HCl (Desyrel) 100 mg PRN QHS PRN PO INSOMNIA; Start 08/10/17 at 18:45 Trazodone HCl (Desyrel) 100 mg QHS PO Last administered on 08/14/17at 20:49; Start 08/10/17 at 21:00 Hydroxyzine Pamoate (Vistaril) 50 mg PRN Q2HR PRN PO ANXIETY; Start 08/11/17 at 18:45 Divalproex Sodium (Depakote Sprinkles) 500 mg TID PO Last administered on at 20:48; Start 08/14/17 at 21:00 Active Scripts Active Reported Thiamine Hcl 100 Mg Tablet 100 Mg PO DAILY Olanzapine 5 Mg Tablet 1 Tab PO QHS Folic Acid 1 Mg Tablet 1 Tab PO DAILY Lovenox (Enoxaparin Sodium) 40 Mg/0.4 Ml Disp.syrin 0.4 Ml SQ DAILY Lisinopril 40 Mg Tablet 20 Mg PO BID Novolog Flexpen (Insulin Aspart) 100 Unit/1 Ml Insuln.pen 0-7 Unit SQ TIDAC Novolog Flexpen (Insulin Aspart) 100 Unit/1 Ml Insuln.pen 15 Unit SQ TIDAC Metoprolol Tartrate 25 Mg Tablet 100 Mg PO BID Lantus Solostar (Insulin Glargine,Hum.rec.anlog) 100 Unit/1 Ml Insuln.pen 30 Unit SQ BID Gabapentin 100 Mg Capsule 100 Mg PO TID I have reviewed the current psychotropics carefully including drug interactions. Risk benefit ratio favors no change other than as noted in my dictated progress note. Diagnosis: Problems: (1) Anxiety disorder (2) Impulse control disorder (3) Bipolar affective disorder, mixed (4) Dementia, vascular, with delusions (5) Dementia with behavioral disturbance LIZ DIANE MD Aug 14, 2017 23:17
--- NOTE | 2017-08-15 00:17 | PN ---
DATE: 08/13/2017 PSYCHIATRIC PROGRESS NOTE This late entry of 08/13/2017 covers elements not covered in my initial note of 08/13/2017. I met with the patient in the evening of 08/13/2017 and staffed at a treatment team meeting with the entire team morning of 08/13/2017. The patient's son's power of estate planning attorney has been activated. SUBJECTIVE: The patient becomes somewhat irate, labile at times, but redirects. Reportedly, the son wants him to come live with him closer to [place], [place] where the son lives. REVIEW OF SYSTEMS: Ambulation impaired with walker. No CV, , pulmonary, eye, ENT system symptoms on review. MENTAL STATUS EXAM: Oriented to himself and situation. Speech has some latency, coherent. Abstraction fair, computation impaired, language function intact, attention span short. Mood and affect, lability is improved. LABORATORY DATA: Reviewed. IMPRESSION: Bipolar 1 disorder, unspecified; major neurocognitive disorder; Alzheimer, vascular with delusions. Rest unchanged. PLAN: Continue psychotropics mentioned in my initial note, may need to adjust Depakote. We will check labs and valproic acid level on 08/13/2017 since the last level was subtherapeutic at 47. MAN Newton DIANE MD DR: MATILDA/james JOB#: [id number] / [id number]
[2017-08-15 05:51] VITALS: BP 155/54
[2017-08-15] MEDS: INSULIN ASPART 300 UNITS/3 ML INSULN.PEN SQ SCH ×6 (07:30→18:15)
[2017-08-15] MEDS: DOCUSATE CALCIUM 240 MG CAPSULE PO SCH (07:45)
[2017-08-15] MEDS: GABAPENTIN 100 MG CAPSULE. PO SCH ×3 (07:45→19:52)
[2017-08-15] MEDS: medroxyPROGESTERone 5 MG TABLET PO SCH (07:46)
[2017-08-15] MEDS: THIAMINE 100 MG TABLET. PO SCH (07:46)
[2017-08-15] MEDS: FOLIC ACID 1 MG TABLET PO SCH (07:46)
[2017-08-15] MEDS: busPIRone 5 MG TABLET. PO SCH ×3 (07:46→18:12)
[2017-08-15] MEDS: DIVALPROEX 125 MG CAP.SPRINK PO SCH ×3 (07:46→19:54)
[2017-08-15] MEDS: METOPROLOL TART IMMED RELEASE 50 MG TABLET PO SCH ×2 (07:53→19:53)
[2017-08-15] MEDS: LISINOPRIL 20 MG TABLET PO SCH ×2 (07:54→19:53)
[2017-08-15] MEDS: NYSTATIN TOPICAL POWDER 15GM BOTTLE. TP SCH ×2 (07:55→20:57)
[2017-08-15] MEDS: INSULIN DETEMIR 300 UNITS/3 ML INSULN.PEN. SQ SCH ×2 (07:55→20:58)
[2017-08-15 16:02] VITALS: BP 171/65
[2017-08-15] MEDS: traZODone 100 MG TABLET. PO SCH (19:52)
[2017-08-15] MEDS: QUEtiapine 50 MG TABLET. PO SCH (19:52)
[2017-08-15] MEDS: MELATONIN 3 MG TABLET PO SCH (19:53)
[2017-08-15] MEDS: traZODone 100 MG TABLET. PO PRN (22:25)
--- NOTE | 2017-08-15 22:49 | PDOC ---
Exam Note: Adriano Note: Please also refer to the separate dictated note~for this date of service dictated separately.~Patient seen individually. Discussed the patient with Nursing staff reviewed the chart.~Reviewed interim history and current functioning. Reviewed vital signs,~Labs/ Radiology~and current medications noted below. Continue current treatment with the changes noted in the dictated addendum note Assessment: Vital Signs: Vital Signs Date Time Temp Pulse Resp B/P (MAP) Pulse Ox O2 Delivery O2 Flow Rate FiO2 08/15/17 19:53 57 171/65 08/15/17 16:02 98.8 18 98 08/12/17 16:07 Room Air I&O Intake and Output 08/15/17 07:00 Intake Total 840 ml Balance 840 ml Intake Oral 840 ml Labs: Laboratory Tests Test 08/15/17 07:40 08/15/17 12:10 08/15/17 16:53 08/15/17 19:08 Glucose (Fingerstick) 120 mg/dL (70-99) H 227 mg/dL (70-99) H 249 mg/dL (70-99) H 246 mg/dL (70-99) H Current Medications: Meds: Current Medications Olanzapine (ZyPREXA) 5 mg QHS PO Last administered on 07/28/17 20:43; Start at 21:00; Stop 07/29/17 at 18:42; Status DC Gabapentin (Neurontin) 100 mg TID PO Last administered on 08/15/17 19:52; Start 07/28/17 at 21:00 Metoprolol Tartrate (Lopressor) 100 mg BID PO Last administered on 08/15/17 19: 53; Start 07/28/17 at 21:00 Insulin Detemir (Levemir) 30 units BID SQ Last administered on 08/15/17at 20:58; Start 07/28/17 at 21:00 Lisinopril (Prinivil) 20 mg BID PO Last administered on 08/15/17 19:53; Start 07/28/17 at 21:00 Insulin Aspart (NovoLOG) 0-7 UNITS TIDAC SQ Last administered on 08/15/17at 18:13 ; Start 07/29/17 at 11:30 Dextrose 12.5 gm PRN Q15MIN PRN IV SEE COMMENTS; Start 07/29/17 at 09:15 Nicotine Polacrilex (Nicorette Gum) 2 mg PRN Q2HR PRN BC SMOKING CESSATION Last administered on 08/07/17 13:47; Start 07/29/17 at 10:45 Folic Acid (Folic Acid) 1 mg DAILY PO Last administered on 08/15/17 07:46; Start 07/30/17 at 09:00 Insulin Aspart (NovoLOG) 15 units TIDAC SQ Last administered on 08/15/17 18:15 ; Start 07/29/17 at 16:30 Thiamine HCl (Vitamin B-1) 100 mg DAILY PO Last administered on 08/15/17 07:46 ; Start 07/30/17 at 09:00 Quetiapine Fumarate (SEROquel) 50 mg HS PO Last administered on 08/15/17 19:52 ; Start 07/29/17 at 21:00 Medroxyprogesterone Acetate (Provera) 2.5 mg DAILY PO Last administered on 08/01at 07:25; Start 07/30/17 at 09:00; Stop 08/02/17 at 08:59; Status DC Olanzapine (ZyPREXA ZYDIS) 2.5 mg PRN Q2HR PRN PO PSYCHOSIS Last administered on 08/05/17at 11:32; Start 07/29/17 at 18:45 Divalproex Sodium (Depakote Sprinkles) 125 mg TID PO Last administered on at 13:11; Start 07/30/17 at 14:00; Stop 08/03/17 at 18:52; Status DC Medroxyprogesterone Acetate (Provera) 5 mg DAILY PO Last administered on at 07:54; Start 08/02/17 at 09:00; Stop 08/02/17 at 21:43; Status DC Trazodone HCl (Desyrel) 50 mg QHS PO Last administered on 08/09/17at 20:43; Start 07/31/17 at 21:00; Stop 08/10/17 at 18:36; Status DC Trazodone HCl (Desyrel) 50 mg PRN QHS PRN PO INSOMNIA Last administered on 22:09; Start 07/31/17 at 18:15; Stop 08/10/17 at 18:37; Status DC Magnesium Hydroxide (Milk Of Magnesia) 2,400 mg PRN DAILY PRN PO CONSTIPATION Last administered on 08/06/17 18:26; Start 08/02/17 at 19:45 Medroxyprogesterone Acetate (Provera) 7.5 mg DAILY PO Last administered on 08/06 08:48; Start 08/03/17 at 09:00; Stop 08/07/17 at 08:59; Status DC Divalproex Sodium (Depakote Sprinkles) 250 mg TID PO Last administered on 08:48; Start 08/03/17 at 21:00; Stop 08/06/17 at 10:54; Status DC Melatonin 3 mg QHS PO Last administered on 08/15/17 19:53; Start 08/03/17 at 21 :00 Nystatin (Nystop) 1 danielle BID TP Last administered on 08/15/17 20:57; Start 08/04 at 21:00 Medroxyprogesterone Acetate (Provera) 10 mg DAILY PO Last administered on 07:46; Start 08/07/17 at 09:00 Buspirone HCl (Buspar) 5 mg 0900,1300,1700 PO Last administered on 08/15/17 18: 12; Start 08/06/17 at 09:00 Divalproex Sodium (Depakote Sprinkles) 375 mg TID PO Last administered on 12:52; Start 08/06/17 at 14:00; Stop 08/14/17 at 18:27; Status DC Docusate Calcium (Surfak) 240 mg DAILY PO Last administered on 08/15/17 07:45; Start 08/07/17 at 09:00 Magnesium Citrate (Citroma) 296 ml PRN DAILY PRN PO CONSTIPATION Last administered on 08/09/17 09:15; Start 08/07/17 at 15:30 Trazodone HCl (Desyrel) 100 mg PRN QHS PRN PO INSOMNIA Last administered on 08/15 22:25; Start 08/10/17 at 18:45 Trazodone HCl (Desyrel) 100 mg QHS PO Last administered on 08/15/17 19:52; Start 08/10/17 at 21:00 Hydroxyzine Pamoate (Vistaril) 50 mg PRN Q2HR PRN PO ANXIETY; Start 08/11/17 at 18:45 Divalproex Sodium (Depakote Sprinkles) 500 mg TID PO Last administered on at 19:54; Start 08/14/17 at 21:00 Active Scripts Active Reported Thiamine Hcl 100 Mg Tablet 100 Mg PO DAILY Olanzapine 5 Mg Tablet 1 Tab PO QHS Folic Acid 1 Mg Tablet 1 Tab PO DAILY Lovenox (Enoxaparin Sodium) 40 Mg/0.4 Ml Disp.syrin 0.4 Ml SQ DAILY Lisinopril 40 Mg Tablet 20 Mg PO BID Novolog Flexpen (Insulin Aspart) 100 Unit/1 Ml Insuln.pen 0-7 Unit SQ TIDAC Novolog Flexpen (Insulin Aspart) 100 Unit/1 Ml Insuln.pen 15 Unit SQ TIDAC Metoprolol Tartrate 25 Mg Tablet 100 Mg PO BID Lantus Solostar (Insulin Glargine,Hum.rec.anlog) 100 Unit/1 Ml Insuln.pen 30 Unit SQ BID Gabapentin 100 Mg Capsule 100 Mg PO TID I have reviewed the current psychotropics carefully including drug interactions. Risk benefit ratio favors no change other than as noted in my dictated progress note. Diagnosis: Problems: (1) Anxiety disorder (2) Impulse control disorder (3) Bipolar affective disorder, mixed (4) Dementia, vascular, with delusions (5) Dementia with behavioral disturbance LIZ DIANE MD Aug 15, 2017 22:49
[2017-08-16 05:57] VITALS: BP 166/75
[2017-08-16] MEDS: INSULIN ASPART 300 UNITS/3 ML INSULN.PEN SQ SCH ×6 (07:30→16:30)
[2017-08-16] MEDS: GABAPENTIN 100 MG CAPSULE. PO SCH ×3 (07:35→20:14)
[2017-08-16] MEDS: LISINOPRIL 20 MG TABLET PO SCH ×2 (07:35→20:13)
[2017-08-16] MEDS: busPIRone 5 MG TABLET. PO SCH ×3 (07:35→17:00)
[2017-08-16] MEDS: DOCUSATE CALCIUM 240 MG CAPSULE PO SCH (07:36)
[2017-08-16] MEDS: FOLIC ACID 1 MG TABLET PO SCH (07:36)
[2017-08-16] MEDS: METOPROLOL TART IMMED RELEASE 50 MG TABLET PO SCH ×2 (07:36→20:14)
[2017-08-16] MEDS: THIAMINE 100 MG TABLET. PO SCH (07:37)
[2017-08-16] MEDS: DIVALPROEX 125 MG CAP.SPRINK PO SCH ×3 (07:37→20:13)
[2017-08-16] MEDS: medroxyPROGESTERone 5 MG TABLET PO SCH (07:37)
[2017-08-16] MEDS: NYSTATIN TOPICAL POWDER 15GM BOTTLE. TP SCH ×2 (07:39→20:31)
[2017-08-16] MEDS: INSULIN DETEMIR 300 UNITS/3 ML INSULN.PEN. SQ SCH ×2 (07:41→20:17)
[2017-08-16 15:44] VITALS: BP 146/57
[2017-08-16] MEDS: traZODone 100 MG TABLET. PO SCH (20:14)
[2017-08-16] MEDS: QUEtiapine 50 MG TABLET. PO SCH (20:14)
[2017-08-16] MEDS: MELATONIN 3 MG TABLET PO SCH (20:14)
[2017-08-16] MEDS: hydrALAZINE 10 MG TABLET PO SCH (20:31)
--- NOTE | 2017-08-16 20:54 | PDOC ---
Exam Note: Adriano Note: Please also refer to the separate dictated note~for this date of service dictated separately.~Patient seen individually. Discussed the patient with Nursing staff reviewed the chart.~Reviewed interim history and current functioning. Reviewed vital signs,~Labs/ Radiology~and current medications noted below. Continue current treatment with the changes noted in the dictated addendum note Assessment: Vital Signs: Vital Signs Date Time Temp Pulse Resp B/P (MAP) Pulse Ox O2 Delivery O2 Flow Rate FiO2 08/16/17 20:31 70 146/57 08/16/17 15:44 98.3 20 96 08/12/17 16:07 Room Air I&O Intake and Output 08/16/17 07:00 Intake Total 1320 ml Balance 1320 ml Intake Oral 1320 ml Labs: Laboratory Tests Test 08/16/17 07:09 08/16/17 11:28 08/16/17 16:11 08/16/17 19:10 Glucose (Fingerstick) 133 mg/dL (70-99) H 193 mg/dL (70-99) H 266 mg/dL (70-99) H 260 mg/dL (70-99) H Current Medications: Meds: Current Medications Olanzapine (ZyPREXA) 5 mg QHS PO Last administered on 07/28/17 20:43; Start at 21:00; Stop 07/29/17 at 18:42; Status DC Gabapentin (Neurontin) 100 mg TID PO Last administered on 08/16/17 20:14; Start 07/28/17 at 21:00 Metoprolol Tartrate (Lopressor) 100 mg BID PO Last administered on 08/16/17 20: 14; Start 07/28/17 at 21:00 Insulin Detemir (Levemir) 30 units BID SQ Last administered on 08/16/17 20:17; Start 07/28/17 at 21:00 Lisinopril (Prinivil) 20 mg BID PO Last administered on 08/16/17 20:13; Start 07/28/17 at 21:00 Insulin Aspart (NovoLOG) 0-7 UNITS TIDAC SQ Last administered on 08/16/17 16:30 ; Start 07/29/17 at 11:30 Dextrose 12.5 gm PRN Q15MIN PRN IV SEE COMMENTS; Start 07/29/17 at 09:15 Nicotine Polacrilex (Nicorette Gum) 2 mg PRN Q2HR PRN BC SMOKING CESSATION Last administered on 08/07/17 13:47; Start 07/29/17 at 10:45 Folic Acid (Folic Acid) 1 mg DAILY PO Last administered on 08/16/17 07:36; Start 07/30/17 at 09:00 Insulin Aspart (NovoLOG) 15 units TIDAC SQ Last administered on 08/16/17 16:30 ; Start 07/29/17 at 16:30 Thiamine HCl (Vitamin B-1) 100 mg DAILY PO Last administered on 08/16/17 07:37 ; Start 07/30/17 at 09:00 Quetiapine Fumarate (SEROquel) 50 mg HS PO Last administered on 08/16/17 20:14 ; Start 07/29/17 at 21:00 Medroxyprogesterone Acetate (Provera) 2.5 mg DAILY PO Last administered on 08/01 07:25; Start 07/30/17 at 09:00; Stop 08/02/17 at 08:59; Status DC Olanzapine (ZyPREXA ZYDIS) 2.5 mg PRN Q2HR PRN PO PSYCHOSIS Last administered on 08/05/17at 11:32; Start 07/29/17 at 18:45 Divalproex Sodium (Depakote Sprinkles) 125 mg TID PO Last administered on 13:11; Start 07/30/17 at 14:00; Stop 08/03/17 at 18:52; Status DC Medroxyprogesterone Acetate (Provera) 5 mg DAILY PO Last administered on at 07:54; Start 08/02/17 at 09:00; Stop 08/02/17 at 21:43; Status DC Trazodone HCl (Desyrel) 50 mg QHS PO Last administered on 08/09/17at 20:43; Start 07/31/17 at 21:00; Stop 08/10/17 at 18:36; Status DC Trazodone HCl (Desyrel) 50 mg PRN QHS PRN PO INSOMNIA Last administered on 22:09; Start 07/31/17 at 18:15; Stop 08/10/17 at 18:37; Status DC Magnesium Hydroxide (Milk Of Magnesia) 2,400 mg PRN DAILY PRN PO CONSTIPATION Last administered on 08/06/17 18:26; Start 08/02/17 at 19:45 Medroxyprogesterone Acetate (Provera) 7.5 mg DAILY PO Last administered on 08/06 08:48; Start 08/03/17 at 09:00; Stop 08/07/17 at 08:59; Status DC Divalproex Sodium (Depakote Sprinkles) 250 mg TID PO Last administered on 08:48; Start 08/03/17 at 21:00; Stop 08/06/17 at 10:54; Status DC Melatonin 3 mg QHS PO Last administered on 08/16/17 20:14; Start 08/03/17 at 21 :00 Nystatin (Nystop) 1 danielle BID TP Last administered on 08/16/17 20:31; Start 08/04 at 21:00 Medroxyprogesterone Acetate (Provera) 10 mg DAILY PO Last administered on 07:37; Start 08/07/17 at 09:00 Buspirone HCl (Buspar) 5 mg 0900,1300,1700 PO Last administered on 08/16/17 17: 00; Start 08/06/17 at 09:00 Divalproex Sodium (Depakote Sprinkles) 375 mg TID PO Last administered on 12:52; Start 08/06/17 at 14:00; Stop 08/14/17 at 18:27; Status DC Docusate Calcium (Surfak) 240 mg DAILY PO Last administered on 08/16/17 07:36; Start 08/07/17 at 09:00 Magnesium Citrate (Citroma) 296 ml PRN DAILY PRN PO CONSTIPATION Last administered on 08/09/17 09:15; Start 08/07/17 at 15:30 Trazodone HCl (Desyrel) 100 mg PRN QHS PRN PO INSOMNIA Last administered on 08/15 22:25; Start 08/10/17 at 18:45 Trazodone HCl (Desyrel) 100 mg QHS PO Last administered on 08/16/17 20:14; Start 08/10/17 at 21:00 Hydroxyzine Pamoate (Vistaril) 50 mg PRN Q2HR PRN PO ANXIETY; Start 08/11/17 at 18:45 Divalproex Sodium (Depakote Sprinkles) 500 mg TID PO Last administered on at 20:13; Start 08/14/17 at 21:00 Hydralazine HCl (Apresoline) 10 mg TID PO Last administered on 08/16/17at 20:31; Start 08/16/17 at 21:00 Active Scripts Active Reported Thiamine Hcl 100 Mg Tablet 100 Mg PO DAILY Olanzapine 5 Mg Tablet 1 Tab PO QHS Folic Acid 1 Mg Tablet 1 Tab PO DAILY Lovenox (Enoxaparin Sodium) 40 Mg/0.4 Ml Disp.syrin 0.4 Ml SQ DAILY Lisinopril 40 Mg Tablet 20 Mg PO BID Novolog Flexpen (Insulin Aspart) 100 Unit/1 Ml Insuln.pen 0-7 Unit SQ TIDAC Novolog Flexpen (Insulin Aspart) 100 Unit/1 Ml Insuln.pen 15 Unit SQ TIDAC Metoprolol Tartrate 25 Mg Tablet 100 Mg PO BID Lantus Solostar (Insulin Glargine,Hum.rec.anlog) 100 Unit/1 Ml Insuln.pen 30 Unit SQ BID Gabapentin 100 Mg Capsule 100 Mg PO TID I have reviewed the current psychotropics carefully including drug interactions. Risk benefit ratio favors no change other than as noted in my dictated progress note. Diagnosis: Problems: (1) Anxiety disorder (2) Impulse control disorder (3) Bipolar affective disorder, mixed (4) Dementia, vascular, with delusions (5) Dementia with behavioral disturbance LIZ DIANE MD Aug 16, 2017 20:54
--- NOTE | 2017-08-16 21:59 | PN ---
DATE: 08/14/2017 This late entry for 08/14/2017 covers elements not covered in my initial note for 08/14/2017. SUBJECTIVE: I met with the patient in the evening of 08/14/2017. The patient had a difficult day. He was taking his clothes off earlier in the day, he went into the day room with no clothes, very upset. He was taken back to the room by nursing staff, caught himself dressed, was extremely rude, loud, disruptive with staff, throwing food and cuffs, had to be placed in the West Hallway to reduce stimuli, refused his medications and insulin. I addressed this with him at length individually, limited insight for this. REVIEW OF SYSTEMS: Ambulation impaired with walker. No CV, , pulmonary, eye system symptoms on review. MENTAL STATUS EXAM: Oriented to himself and situation. Speech has some latency, coherent. Abstraction fair, computation impaired, language function intact, attention span short. Mood and affect remains labile. LABORATORY DATA: Reviewed. IMPRESSION: Bipolar 1 disorder, mixed with psychotic features; major neurocognitive disorder, Alzheimer, vascular with delusions. PLAN: Valproic acid level is 50 on 08/14/2017. Increase Depakote from 375 mg t.i.d. to 500 mg 3 times a day. Check CBC, CMP, valproic acid level in 3 days. Rest unchanged. MAN Newton DIANE MD DR: MATILDA/james JOB#: [id number] / [id number]
--- NOTE | 2017-08-17 01:41 | PN ---
DATE: 08/15/2017 This is a late entry, 08/15/2017, covers the elements not covered in my initial note, 08/15/2017. SUBJECTIVE: I met with the patient the evening of 08/15/2017. The patient has been somewhat drowsy, but otherwise pleasant, compliant not undressing like he did the day before and not aggressive, disruptive again for which he had to be placed in the West hallway to reduce stimuli the day before. REVIEW OF SYSTEMS: Ambulation impaired with a walker. No CV, , pulmonary, eye system symptoms on review. MENTAL STATUS EXAM: Oriented to himself and situation. Speech has some latency, coherent. Abstraction fair, computation impaired, language function intact, attention span short. Mood and affect less labile. LABORATORY DATA: Reviewed. IMPRESSION: Alzheimer, vascular with delusions, bipolar 1 disorder, mixed, rest unchanged. 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 PLAN: Continue psychotropics as mentioned in my initial note. MAN Newton DIANE MD DR: MATILDA/james JOB#: [id number] / [id number]
[2017-08-17 06:20] VITALS: BP 160/89
[2017-08-17] MEDS: INSULIN ASPART 300 UNITS/3 ML INSULN.PEN SQ SCH ×6 (07:30→17:20)
[2017-08-17 07:37] LABS: BASO % 0 % (0-3); EOS # 0.2 x10^3/uL (0.0-0.7); EOS % 3 % (0-3); HEMATOCRIT 39.2 % (39.0-53.0); LYMPH # 1.3 x10^3/uL (1.0-4.8); LYMPH % 20 % (24-48); MEAN CORPUSCULAR HEMOGLOBIN 30 pg (25-35); MEAN CORPUSCULAR HGB CONC 33 g/dL (31-37); MEAN CORPUSCULAR VOLUME 92 fL (79-100); MONO # 0.5 x10^3/uL (0.0-1.1); MONO % 8 % (0-9); NEUT # 4.6 x10^3uL (1.8-7.7); NEUT % 69 % (31-73); PLATELET COUNT 124 x10^3/uL (140-400); RED BLOOD COUNT 4.29 x10^6/uL (4.30-5.70); RED CELL DISTRIBUTION WIDTH 14.3 % (11.5-14.5); WHITE BLOOD COUNT 6.6 x10^3/uL (4.0-11.0)
[2017-08-17 07:48] LABS: ALBUMIN 2.9 g/dL (3.4-5.0); ALBUMIN/GLOBULIN RATIO 0.8 (1.0-1.7); ALK PHOS 53 U/L (46-116); ALT (SGPT) 25 U/L (16-63); ANION GAP 8 (6-14); AST (SGOT) 11 U/L (15-37); BLOOD UREA NITROGEN 15 mg/dL (8-26); BUN/CREATININE RATIO 15 (6-20); CALCIUM 8.4 mg/dL (8.5-10.1); CARBON DIOXIDE 28 mmol/L (21-32); CHLORIDE 108 mmol/L (98-107); GFR 73.2; GLUCOSE 142 mg/dL (70-99); SODIUM 144 mmol/L (136-145); TOTAL BILIRUBIN 0.3 mg/dL (0.2-1.0); TOTAL PROTEIN 6.4 g/dL (6.4-8.2)
[2017-08-17 08:00] LABS: VAL ACID 58 mcg/mL (50-100)
[2017-08-17] MEDS: INSULIN DETEMIR 300 UNITS/3 ML INSULN.PEN. SQ SCH ×2 (08:03→19:42)
[2017-08-17] MEDS: medroxyPROGESTERone 5 MG TABLET PO SCH (08:04)
[2017-08-17] MEDS: hydrALAZINE 10 MG TABLET PO SCH ×3 (08:04→19:34)
[2017-08-17] MEDS: DIVALPROEX 125 MG CAP.SPRINK PO SCH ×3 (08:04→19:34)
[2017-08-17] MEDS: METOPROLOL TART IMMED RELEASE 50 MG TABLET PO SCH ×2 (08:04→19:34)
[2017-08-17] MEDS: GABAPENTIN 100 MG CAPSULE. PO SCH ×3 (08:05→19:34)
[2017-08-17] MEDS: LISINOPRIL 20 MG TABLET PO SCH ×2 (08:05→19:35)
[2017-08-17] MEDS: busPIRone 5 MG TABLET. PO SCH ×3 (08:05→17:18)
[2017-08-17] MEDS: NYSTATIN TOPICAL POWDER 15GM BOTTLE. TP SCH ×2 (08:05→19:35)
[2017-08-17] MEDS: DOCUSATE CALCIUM 240 MG CAPSULE PO SCH (08:05)
[2017-08-17] MEDS: FOLIC ACID 1 MG TABLET PO SCH (08:05)
[2017-08-17] MEDS: THIAMINE 100 MG TABLET. PO SCH (08:05)
[2017-08-17] MEDS: MAGNESIUM CITRATE 296 ML SOLUTION. PO PRN (13:32)
[2017-08-17 16:14] VITALS: BP 127/75
[2017-08-17] MEDS: traZODone 100 MG TABLET. PO SCH (19:34)
[2017-08-17] MEDS: MELATONIN 3 MG TABLET PO SCH (19:34)
[2017-08-17] MEDS: QUEtiapine 50 MG TABLET. PO SCH (19:35)
[2017-08-17] MEDS: POTASSIUM CHLORIDE 20 MEQ TABLET.ER. PO SCH (20:31)
--- NOTE | 2017-08-17 21:29 | PN ---
DATE: 08/16/2017 PSYCHIATRIC PROGRESS NOTE This is a late entry 08/16/2017, covers elements not covered in my initial note 08/16/2017. SUBJECTIVE: I met with the patient the evening of 08/16/2017. Per nursing report, the patient has been sarcastic, demanding, anxious. Blood pressure and pulse were elevated, swelling of the feet is better. Defer to Dr. Chapman. REVIEW OF SYSTEMS: Ambulation impaired with walker. No CV, , pulmonary, eye, ENT system symptoms on review. MENTAL STATUS EXAM: Oriented to himself and situation. Speech has some latency, coherent. Abstraction fair, computation impaired, language function intact, attention span short. Mood and affect remain somewhat withdrawn, labile at times, but improved. LABORATORY DATA: Reviewed. IMPRESSION: Major neurocognitive disorder, Alzheimer, vascular with depression, delusion, behavioral disturbance; bipolar 1 disorder, unspecified. PLAN: Continue psychotropics mentioned in my initial note. Check CBC, CMP, valproic acid level 49. Adjust Depakote thereafter. MAN Newton DIANE MD DR: MATILDA/james JOB#: [id number] / [id number]
--- NOTE | 2017-08-17 22:05 | PDOC ---
Exam Note: Adriano Note: Please also refer to the separate dictated note~for this date of service dictated separately.~Patient seen individually. Discussed the patient with Nursing staff reviewed the chart.~Reviewed interim history and current functioning. Reviewed vital signs,~Labs/ Radiology~and current medications noted below. Continue current treatment with the changes noted in the dictated addendum note Assessment: Vital Signs: Vital Signs Date Time Temp Pulse Resp B/P (MAP) Pulse Ox O2 Delivery O2 Flow Rate FiO2 08/17/17 19:35 67 127/75 08/17/17 16:14 97.7 18 99 08/12/17 16:07 Room Air I&O Intake and Output 08/17/17 07:00 Intake Total 1680 ml Balance 1680 ml Intake Oral 1680 ml # Voids 3 Labs: Laboratory Tests Test 08/17/17 07:12 08/17/17 07:40 08/17/17 11:54 08/17/17 16:30 White Blood Count 6.6 x10^3/uL (4.0-11.0) Red Blood Count 4.29 x10^6/uL (4.30-5.70) L Hemoglobin 13.0 g/dL (13.0-17.5) Hematocrit 39.2 % (39.0-53.0) Mean Corpuscular Volume 92 fL (79-100) Mean Corpuscular Hemoglobin 30 pg (25-35) Mean Corpuscular Hemoglobin Concent 33 g/dL (31-37) Red Cell Distribution Width 14.3 % (11.5-14.5) Platelet Count 124 x10^3/uL (140-400) L Neutrophils (%) (Auto) 69 % (31-73) Lymphocytes (%) (Auto) 20 % (24-48) L Monocytes (%) (Auto) 8 % (0-9) Eosinophils (%) (Auto) 3 % (0-3) Basophils (%) (Auto) 0 % (0-3) Neutrophils # (Auto) 4.6 x10^3uL (1.8-7.7) Lymphocytes # (Auto) 1.3 x10^3/uL (1.0-4.8) Monocytes # (Auto) 0.5 x10^3/uL (0.0-1.1) Eosinophils # (Auto) 0.2 x10^3/uL (0.0-0.7) Basophils # (Auto) 0.0 x10^3/uL (0.0-0.2) Sodium Level 144 mmol/L (136-145) Potassium Level 4.0 mmol/L (3.5-5.1) Chloride Level 108 mmol/L (98-107) H Carbon Dioxide Level 28 mmol/L (21-32) Anion Gap 8 (6-14) Blood Urea Nitrogen 15 mg/dL (8-26) Creatinine 1.0 mg/dL (0.7-1.3) Estimated GFR (Cockcroft-Gault) 73.2 BUN/Creatinine Ratio 15 (6-20) Glucose Level 142 mg/dL (70-99) H Calcium Level 8.4 mg/dL (8.5-10.1) L Total Bilirubin 0.3 mg/dL (0.2-1.0) Aspartate Amino Transferase (AST) 11 U/L (15-37) L Alanine Aminotransferase (ALT) 25 U/L (16-63) Alkaline Phosphatase 53 U/L (46-116) Total Protein 6.4 g/dL (6.4-8.2) Albumin 2.9 g/dL (3.4-5.0) L Albumin/Globulin Ratio 0.8 (1.0-1.7) L Valproic Acid Level 58 mcg/mL (50-100) Valproic Acid Last Dose Date 08/16/17 Valproic Acid Last Dose Time 2100 Glucose (Fingerstick) 131 mg/dL (70-99) H 139 mg/dL (70-99) H 119 mg/dL (70-99) H Test 08/17/17 18:59 Glucose (Fingerstick) 231 mg/dL (70-99) H Current Medications: Meds: Current Medications Olanzapine (ZyPREXA) 5 mg QHS PO Last administered on 07/28/17at 20:43; Start at 21:00; Stop 07/29/17 at 18:42; Status DC Gabapentin (Neurontin) 100 mg TID PO Last administered on 08/17/17at 19:34; Start 07/28/17 at 21:00 Metoprolol Tartrate (Lopressor) 100 mg BID PO Last administered on 08/17/17at 19: 34; Start 07/28/17 at 21:00 Insulin Detemir (Levemir) 30 units BID SQ Last administered on 08/17/17 19:42; Start 07/28/17 at 21:00 Lisinopril (Prinivil) 20 mg BID PO Last administered on 08/17/17 19:35; Start 07/28/17 at 21:00 Insulin Aspart (NovoLOG) 0-7 UNITS TIDAC SQ Last administered on 08/16/17 16:30 ; Start 07/29/17 at 11:30 Dextrose 12.5 gm PRN Q15MIN PRN IV SEE COMMENTS; Start 07/29/17 at 09:15 Nicotine Polacrilex (Nicorette Gum) 2 mg PRN Q2HR PRN BC SMOKING CESSATION Last administered on 08/07/17 13:47; Start 07/29/17 at 10:45 Folic Acid (Folic Acid) 1 mg DAILY PO Last administered on 08/17/17 08:05; Start 07/30/17 at 09:00 Insulin Aspart (NovoLOG) 15 units TIDAC SQ Last administered on 08/17/17 17:20 ; Start 07/29/17 at 16:30 Thiamine HCl (Vitamin B-1) 100 mg DAILY PO Last administered on 08/17/17 08:05 ; Start 07/30/17 at 09:00 Quetiapine Fumarate (SEROquel) 50 mg HS PO Last administered on 08/17/17 19:35 ; Start 07/29/17 at 21:00 Medroxyprogesterone Acetate (Provera) 2.5 mg DAILY PO Last administered on 08/01 07:25; Start 07/30/17 at 09:00; Stop 08/02/17 at 08:59; Status DC Olanzapine (ZyPREXA ZYDIS) 2.5 mg PRN Q2HR PRN PO PSYCHOSIS Last administered on 08/05/17 11:32; Start 07/29/17 at 18:45 Divalproex Sodium (Depakote Sprinkles) 125 mg TID PO Last administered on 13:11; Start 07/30/17 at 14:00; Stop 08/03/17 at 18:52; Status DC Medroxyprogesterone Acetate (Provera) 5 mg DAILY PO Last administered on 07:54; Start 08/02/17 at 09:00; Stop 08/02/17 at 21:43; Status DC Trazodone HCl (Desyrel) 50 mg QHS PO Last administered on 08/09/17 20:43; Start 07/31/17 at 21:00; Stop 08/10/17 at 18:36; Status DC Trazodone HCl (Desyrel) 50 mg PRN QHS PRN PO INSOMNIA Last administered on 22:09; Start 07/31/17 at 18:15; Stop 08/10/17 at 18:37; Status DC Magnesium Hydroxide (Milk Of Magnesia) 2,400 mg PRN DAILY PRN PO CONSTIPATION Last administered on 08/06/17 18:26; Start 08/02/17 at 19:45 Medroxyprogesterone Acetate (Provera) 7.5 mg DAILY PO Last administered on 08/06 08:48; Start 08/03/17 at 09:00; Stop 08/07/17 at 08:59; Status DC Divalproex Sodium (Depakote Sprinkles) 250 mg TID PO Last administered on 08:48; Start 08/03/17 at 21:00; Stop 08/06/17 at 10:54; Status DC Melatonin 3 mg QHS PO Last administered on 08/17/17 19:34; Start 08/03/17 at 21 :00 Nystatin (Nystop) 1 danielle BID TP Last administered on 08/17/17 19:35; Start 08/04 at 21:00 Medroxyprogesterone Acetate (Provera) 10 mg DAILY PO Last administered on 08:04; Start 08/07/17 at 09:00 Buspirone HCl (Buspar) 5 mg 0900,1300,1700 PO Last administered on 08/17/17 17: 18; Start 08/06/17 at 09:00; Stop 08/17/17 at 18:32; Status DC Divalproex Sodium (Depakote Sprinkles) 375 mg TID PO Last administered on 12:52; Start 08/06/17 at 14:00; Stop 08/14/17 at 18:27; Status DC Docusate Calcium (Surfak) 240 mg DAILY PO Last administered on 08/17/17 08:05; Start 08/07/17 at 09:00 Magnesium Citrate (Citroma) 296 ml PRN DAILY PRN PO CONSTIPATION Last administered on 08/17/17 13:32; Start 08/07/17 at 15:30 Trazodone HCl (Desyrel) 100 mg PRN QHS PRN PO INSOMNIA Last administered on 08/15 22:25; Start 08/10/17 at 18:45 Trazodone HCl (Desyrel) 100 mg QHS PO Last administered on 08/17/17 19:34; Start 08/10/17 at 21:00 Hydroxyzine Pamoate (Vistaril) 50 mg PRN Q2HR PRN PO ANXIETY; Start 08/11/17 at 18:45 Divalproex Sodium (Depakote Sprinkles) 500 mg TID PO Last administered on 19:34; Start 08/14/17 at 21:00 Hydralazine HCl (Apresoline) 10 mg TID PO Last administered on 08/17/17 19:34; Start 08/16/17 at 21:00 Furosemide (Lasix) 40 mg DAILY PO ; Start 08/18/17 at 09:00 Potassium Chloride (Klor-Con) 20 meq BID PO Last administered on 08/17/17 20:31 ; Start 08/17/17 at 21:00 Buspirone HCl (Buspar) 5 mg 1300,1700 PO ; Start 08/18/17 at 13:00 Buspirone HCl (Buspar) 10 mg DAILY PO ; Start 08/18/17 at 09:00 Active Scripts Active Reported Thiamine Hcl 100 Mg Tablet 100 Mg PO DAILY Olanzapine 5 Mg Tablet 1 Tab PO QHS Folic Acid 1 Mg Tablet 1 Tab PO DAILY Lovenox (Enoxaparin Sodium) 40 Mg/0.4 Ml Disp.syrin 0.4 Ml SQ DAILY Lisinopril 40 Mg Tablet 20 Mg PO BID Novolog Flexpen (Insulin Aspart) 100 Unit/1 Ml Insuln.pen 0-7 Unit SQ TIDAC Novolog Flexpen (Insulin Aspart) 100 Unit/1 Ml Insuln.pen 15 Unit SQ TIDAC Metoprolol Tartrate 25 Mg Tablet 100 Mg PO BID Lantus Solostar (Insulin Glargine,Hum.rec.anlog) 100 Unit/1 Ml Insuln.pen 30 Unit SQ BID Gabapentin 100 Mg Capsule 100 Mg PO TID I have reviewed the current psychotropics carefully including drug interactions. Risk benefit ratio favors no change other than as noted in my dictated progress note. Diagnosis: Problems: (1) Anxiety disorder (2) Impulse control disorder (3) Bipolar affective disorder, mixed (4) Dementia, vascular, with delusions (5) Dementia with behavioral disturbance LIZ DIANE MD Aug 17, 2017 22:05
[2017-08-18 06:04] VITALS: BP 151/70
[2017-08-18] MEDS: INSULIN ASPART 300 UNITS/3 ML INSULN.PEN SQ SCH ×7 (07:29→16:54)
[2017-08-18] MEDS: POTASSIUM CHLORIDE 20 MEQ TABLET.ER. PO SCH ×2 (07:58→19:18)
[2017-08-18] MEDS: DIVALPROEX 125 MG CAP.SPRINK PO SCH ×3 (07:58→19:17)
[2017-08-18] MEDS: LISINOPRIL 20 MG TABLET PO SCH ×2 (07:59→19:19)
[2017-08-18] MEDS: hydrALAZINE 10 MG TABLET PO SCH ×3 (07:59→19:17)
[2017-08-18] MEDS: METOPROLOL TART IMMED RELEASE 50 MG TABLET PO SCH ×2 (08:00→19:18)
[2017-08-18] MEDS: FOLIC ACID 1 MG TABLET PO SCH (08:00)
[2017-08-18] MEDS: THIAMINE 100 MG TABLET. PO SCH (08:00)
[2017-08-18] MEDS: DOCUSATE CALCIUM 240 MG CAPSULE PO SCH (08:00)
[2017-08-18] MEDS: GABAPENTIN 100 MG CAPSULE. PO SCH ×3 (08:00→19:18)
[2017-08-18] MEDS: INSULIN DETEMIR 300 UNITS/3 ML INSULN.PEN. SQ SCH ×2 (08:02→20:01)
[2017-08-18] MEDS: busPIRone 10 MG TABLET. PO SCH (08:06)
[2017-08-18] MEDS: NYSTATIN TOPICAL POWDER 15GM BOTTLE. TP SCH ×2 (08:06→19:21)
[2017-08-18] MEDS: FUROSEMIDE 40 MG TABLET PO SCH (08:06)
[2017-08-18] MEDS: medroxyPROGESTERone 5 MG TABLET PO SCH (08:08)
[2017-08-18] MEDS: busPIRone 5 MG TABLET. PO SCH ×2 (13:46→16:52)
--- NOTE | 2017-08-18 14:04 | PN ---
DATE: 08/17/2017 PSYCHIATRIC PROGRESS NOTE This is a late entry 08/17/2017, covers elements not covered in my initial note 08/17/2017. SUBJECTIVE: I met with the patient the evening of 08/17/2017. Overall, the patient was quite belligerent, agitated previous evening regarding snacks, but redirected. He has done better during the day 08/17/2017. REVIEW OF SYSTEMS: Ambulation impaired with walker. No CV, , pulmonary, eye, ENT system symptoms on review. MENTAL STATUS EXAM: Reasonably oriented to himself and situation. Speech is coherent, has some latency. Abstraction fair, computation impaired, language function intact. Mood and affect somewhat withdrawn. LABORATORY DATA: Reviewed. IMPRESSION: Major depressive disorder with psychotic features; major neurocognitive disorder, Alzheimer, vascular with delusion, depression. PLAN: Valproic acid level is 58. Continue Depakote at current dosage together with the rest of the psychotropics, BuSpar is 5 mg 3 times a day and we will increase the morning dosage to 10 mg to help with anxiety, mood lability. MAN Newton DIANE MD DR: MATILDA/james JOB#: [id number] / [id number]
[2017-08-18 15:44] VITALS: BP 165/72
[2017-08-18] MEDS: traZODone 100 MG TABLET. PO SCH (19:17)
[2017-08-18] MEDS: MELATONIN 3 MG TABLET PO SCH (19:17)
[2017-08-18] MEDS: QUEtiapine 50 MG TABLET. PO SCH (19:19)
--- NOTE | 2017-08-18 20:54 | PDOC ---
Exam Note: Adriano Note: Please also refer to the separate dictated note~for this date of service dictated separately.~Patient seen individually. Discussed the patient with Nursing staff reviewed the chart.~Reviewed interim history and current functioning. Reviewed vital signs,~Labs/ Radiology~and current medications noted below. Continue current treatment with the changes noted in the dictated addendum note Assessment: Vital Signs: Vital Signs Date Time Temp Pulse Resp B/P (MAP) Pulse Ox O2 Delivery O2 Flow Rate FiO2 08/18/17 19:19 60 165/72 08/18/17 15:44 97.8 20 98 08/12/17 16:07 Room Air I&O Intake and Output 08/18/17 07:00 Intake Total 1320 ml Balance 1320 ml Intake Oral 1320 ml # Voids 1 # Bowel Movements 1 Labs: Laboratory Tests Test 08/18/17 07:01 08/18/17 07:07 08/18/17 11:10 08/18/17 16:19 Glucose (Fingerstick) 181 mg/dL (70-99) H 101 mg/dL (70-99) H 190 mg/dL (70-99) H 201 mg/dL (70-99) H Current Medications: Meds: Current Medications Olanzapine (ZyPREXA) 5 mg QHS PO Last administered on 07/28/17at 20:43; Start at 21:00; Stop 07/29/17 at 18:42; Status DC Gabapentin (Neurontin) 100 mg TID PO Last administered on 08/18/17 19:18; Start 07/28/17 at 21:00 Metoprolol Tartrate (Lopressor) 100 mg BID PO Last administered on 08/18/17 19 :18; Start 07/28/17 at 21:00 Insulin Detemir (Levemir) 30 units BID SQ Last administered on 08/18/17at 20:01 ; Start 07/28/17 at 21:00 Lisinopril (Prinivil) 20 mg BID PO Last administered on 08/18/17 19:19; Start 07/28/17 at 21:00 Insulin Aspart (NovoLOG) 0-7 UNITS TIDAC SQ Last administered on 08/18/17at 16: 54; Start 07/29/17 at 11:30 Dextrose 12.5 gm PRN Q15MIN PRN IV SEE COMMENTS; Start 07/29/17 at 09:15 Nicotine Polacrilex (Nicorette Gum) 2 mg PRN Q2HR PRN BC SMOKING CESSATION Last administered on 08/07/17at 13:47; Start 07/29/17 at 10:45 Folic Acid (Folic Acid) 1 mg DAILY PO Last administered on 08/18/17 08:00; Start 07/30/17 at 09:00 Insulin Aspart (NovoLOG) 15 units TIDAC SQ Last administered on 08/18/17at 16:53 ; Start 07/29/17 at 16:30 Thiamine HCl (Vitamin B-1) 100 mg DAILY PO Last administered on 08/18/17 08:00 ; Start 07/30/17 at 09:00 Quetiapine Fumarate (SEROquel) 50 mg HS PO Last administered on 08/18/17 19:19 ; Start 07/29/17 at 21:00 Medroxyprogesterone Acetate (Provera) 2.5 mg DAILY PO Last administered on 08/01at 07:25; Start 07/30/17 at 09:00; Stop 08/02/17 at 08:59; Status DC Olanzapine (ZyPREXA ZYDIS) 2.5 mg PRN Q2HR PRN PO PSYCHOSIS Last administered on 08/05/17at 11:32; Start 07/29/17 at 18:45 Divalproex Sodium (Depakote Sprinkles) 125 mg TID PO Last administered on at 13:11; Start 07/30/17 at 14:00; Stop 08/03/17 at 18:52; Status DC Medroxyprogesterone Acetate (Provera) 5 mg DAILY PO Last administered on at 07:54; Start 08/02/17 at 09:00; Stop 08/02/17 at 21:43; Status DC Trazodone HCl (Desyrel) 50 mg QHS PO Last administered on 08/09/17at 20:43; Start 07/31/17 at 21:00; Stop 08/10/17 at 18:36; Status DC Trazodone HCl (Desyrel) 50 mg PRN QHS PRN PO INSOMNIA Last administered on 22:09; Start 07/31/17 at 18:15; Stop 08/10/17 at 18:37; Status DC Magnesium Hydroxide (Milk Of Magnesia) 2,400 mg PRN DAILY PRN PO CONSTIPATION Last administered on 08/06/17 18:26; Start 08/02/17 at 19:45 Medroxyprogesterone Acetate (Provera) 7.5 mg DAILY PO Last administered on 08/06 08:48; Start 08/03/17 at 09:00; Stop 08/07/17 at 08:59; Status DC Divalproex Sodium (Depakote Sprinkles) 250 mg TID PO Last administered on 08:48; Start 08/03/17 at 21:00; Stop 08/06/17 at 10:54; Status DC Melatonin 3 mg QHS PO Last administered on 08/18/17 19:17; Start 08/03/17 at 21:00 Nystatin (Nystop) 1 danielle BID TP Last administered on 08/18/17 19:21; Start at 21:00 Medroxyprogesterone Acetate (Provera) 10 mg DAILY PO Last administered on 08:08; Start 08/07/17 at 09:00 Buspirone HCl (Buspar) 5 mg 0900,1300,1700 PO Last administered on 08/17/17 17: 18; Start 08/06/17 at 09:00; Stop 08/17/17 at 18:32; Status DC Divalproex Sodium (Depakote Sprinkles) 375 mg TID PO Last administered on 12:52; Start 08/06/17 at 14:00; Stop 08/14/17 at 18:27; Status DC Docusate Calcium (Surfak) 240 mg DAILY PO Last administered on 08/18/17 08:00 ; Start 08/07/17 at 09:00 Magnesium Citrate (Citroma) 296 ml PRN DAILY PRN PO CONSTIPATION Last administered on 08/17/17 13:32; Start 08/07/17 at 15:30 Trazodone HCl (Desyrel) 100 mg PRN QHS PRN PO INSOMNIA Last administered on 08/15 22:25; Start 08/10/17 at 18:45 Trazodone HCl (Desyrel) 100 mg QHS PO Last administered on 08/18/17 19:17; Start 08/10/17 at 21:00 Hydroxyzine Pamoate (Vistaril) 50 mg PRN Q2HR PRN PO ANXIETY; Start 08/11/17 at 18:45 Divalproex Sodium (Depakote Sprinkles) 500 mg TID PO Last administered on 19:17; Start 08/14/17 at 21:00 Hydralazine HCl (Apresoline) 10 mg TID PO Last administered on 08/18/17 19:17 ; Start 08/16/17 at 21:00 Furosemide (Lasix) 40 mg DAILY PO Last administered on 08/18/17 08:06; Start 08/18/17 at 09:00 Potassium Chloride (Klor-Con) 20 meq BID PO Last administered on 08/18/17 19: 18; Start 08/17/17 at 21:00 Buspirone HCl (Buspar) 5 mg 1300,1700 PO Last administered on 08/18/17at 16:52; Start 08/18/17 at 13:00 Buspirone HCl (Buspar) 10 mg DAILY PO Last administered on 08/18/17at 08:06; Start 08/18/17 at 09:00 Active Scripts Active Reported Thiamine Hcl 100 Mg Tablet 100 Mg PO DAILY Olanzapine 5 Mg Tablet 1 Tab PO QHS Folic Acid 1 Mg Tablet 1 Tab PO DAILY Lovenox (Enoxaparin Sodium) 40 Mg/0.4 Ml Disp.syrin 0.4 Ml SQ DAILY Lisinopril 40 Mg Tablet 20 Mg PO BID Novolog Flexpen (Insulin Aspart) 100 Unit/1 Ml Insuln.pen 0-7 Unit SQ TIDAC Novolog Flexpen (Insulin Aspart) 100 Unit/1 Ml Insuln.pen 15 Unit SQ TIDAC Metoprolol Tartrate 25 Mg Tablet 100 Mg PO BID Lantus Solostar (Insulin Glargine,Hum.rec.anlog) 100 Unit/1 Ml Insuln.pen 30 Unit SQ BID Gabapentin 100 Mg Capsule 100 Mg PO TID I have reviewed the current psychotropics carefully including drug interactions. Risk benefit ratio favors no change other than as noted in my dictated progress note. Diagnosis: Problems: (1) Anxiety disorder (2) Impulse control disorder (3) Bipolar affective disorder, mixed (4) Dementia, vascular, with delusions (5) Dementia with behavioral disturbance LIZ DIANE MD Aug 18, 2017 20:54
[2017-08-19 06:22] VITALS: BP 151/59
[2017-08-19] MEDS: INSULIN ASPART 300 UNITS/3 ML INSULN.PEN SQ SCH ×6 (07:48→16:56)
[2017-08-19 08:23] VITALS: BP 143/59
[2017-08-19] MEDS: DOCUSATE CALCIUM 240 MG CAPSULE PO SCH (08:24)
[2017-08-19] MEDS: busPIRone 10 MG TABLET. PO SCH (08:24)
[2017-08-19] MEDS: FUROSEMIDE 40 MG TABLET PO SCH (08:24)
[2017-08-19] MEDS: FOLIC ACID 1 MG TABLET PO SCH (08:24)
[2017-08-19] MEDS: GABAPENTIN 100 MG CAPSULE. PO SCH ×3 (08:24→20:19)
[2017-08-19] MEDS: hydrALAZINE 10 MG TABLET PO SCH ×3 (08:24→20:18)
[2017-08-19] MEDS: THIAMINE 100 MG TABLET. PO SCH (08:24)
[2017-08-19] MEDS: POTASSIUM CHLORIDE 20 MEQ TABLET.ER. PO SCH ×2 (08:25→20:19)
[2017-08-19] MEDS: medroxyPROGESTERone 5 MG TABLET PO SCH (08:25)
[2017-08-19] MEDS: LISINOPRIL 20 MG TABLET PO SCH ×2 (08:26→20:20)
[2017-08-19] MEDS: DIVALPROEX 125 MG CAP.SPRINK PO SCH ×3 (08:26→20:19)
[2017-08-19] MEDS: METOPROLOL TART IMMED RELEASE 50 MG TABLET PO SCH ×2 (08:26→20:19)
[2017-08-19] MEDS: NYSTATIN TOPICAL POWDER 15GM BOTTLE. TP SCH ×3 (08:29→20:21)
[2017-08-19] MEDS: INSULIN DETEMIR 300 UNITS/3 ML INSULN.PEN. SQ SCH ×2 (08:30→20:21)
[2017-08-19] MEDS: busPIRone 5 MG TABLET. PO SCH ×2 (12:48→17:03)
[2017-08-19 13:38] VITALS: BP 141/61
[2017-08-19 16:22] VITALS: BP 148/63
[2017-08-19] MEDS: MELATONIN 3 MG TABLET PO SCH (20:18)
[2017-08-19] MEDS: traZODone 100 MG TABLET. PO SCH (20:19)
[2017-08-19] MEDS: QUEtiapine 50 MG TABLET. PO SCH (20:20)
--- NOTE | 2017-08-19 20:58 | PDOC ---
Exam Note: Adriano Note: Please also refer to the separate dictated note~for this date of service dictated separately.~Patient seen individually. Discussed the patient with Nursing staff reviewed the chart.~Reviewed interim history and current functioning. Reviewed vital signs,~Labs/ Radiology~and current medications noted below. Continue current treatment with the changes noted in the dictated addendum note Assessment: Vital Signs: Vital Signs Date Time Temp Pulse Resp B/P (MAP) Pulse Ox O2 Delivery O2 Flow Rate FiO2 08/19/17 20:20 65 148/63 08/19/17 16:22 98.2 18 94 I&O Intake and Output 08/19/17 07:00 Intake Total 1800 ml Balance 1800 ml Intake Oral 1800 ml # Voids 1 Labs: Laboratory Tests Test 08/19/17 07:06 08/19/17 12:00 08/19/17 16:47 08/19/17 19:36 Glucose (Fingerstick) 158 mg/dL (70-99) H 176 mg/dL (70-99) H 185 mg/dL (70-99) H 193 mg/dL (70-99) H Current Medications: Meds: Current Medications Olanzapine (ZyPREXA) 5 mg QHS PO Last administered on 07/28/17 20:43; Start at 21:00; Stop 07/29/17 at 18:42; Status DC Gabapentin (Neurontin) 100 mg TID PO Last administered on 08/19/17 20:19; Start 07/28/17 at 21:00 Metoprolol Tartrate (Lopressor) 100 mg BID PO Last administered on 08/19/17 20 :19; Start 07/28/17 at 21:00 Insulin Detemir (Levemir) 30 units BID SQ Last administered on 08/19/17 20:21 ; Start 07/28/17 at 21:00 Lisinopril (Prinivil) 20 mg BID PO Last administered on 08/19/17 20:20; Start 07/28/17 at 21:00 Insulin Aspart (NovoLOG) 0-7 UNITS TIDAC SQ Last administered on 08/19/17 16: 55; Start 07/29/17 at 11:30 Dextrose 12.5 gm PRN Q15MIN PRN IV SEE COMMENTS; Start 07/29/17 at 09:15 Nicotine Polacrilex (Nicorette Gum) 2 mg PRN Q2HR PRN BC SMOKING CESSATION Last administered on 08/07/17 13:47; Start 07/29/17 at 10:45 Folic Acid (Folic Acid) 1 mg DAILY PO Last administered on 08/19/17 08:24; Start 07/30/17 at 09:00 Insulin Aspart (NovoLOG) 15 units TIDAC SQ Last administered on 08/19/17at 16:56 ; Start 07/29/17 at 16:30 Thiamine HCl (Vitamin B-1) 100 mg DAILY PO Last administered on 08/19/17 08:24 ; Start 07/30/17 at 09:00 Quetiapine Fumarate (SEROquel) 50 mg HS PO Last administered on 08/19/17 20:20 ; Start 07/29/17 at 21:00 Medroxyprogesterone Acetate (Provera) 2.5 mg DAILY PO Last administered on 08/01 07:25; Start 07/30/17 at 09:00; Stop 08/02/17 at 08:59; Status DC Olanzapine (ZyPREXA ZYDIS) 2.5 mg PRN Q2HR PRN PO PSYCHOSIS Last administered on 08/05/17at 11:32; Start 07/29/17 at 18:45 Divalproex Sodium (Depakote Sprinkles) 125 mg TID PO Last administered on 13:11; Start 07/30/17 at 14:00; Stop 08/03/17 at 18:52; Status DC Medroxyprogesterone Acetate (Provera) 5 mg DAILY PO Last administered on at 07:54; Start 08/02/17 at 09:00; Stop 08/02/17 at 21:43; Status DC Trazodone HCl (Desyrel) 50 mg QHS PO Last administered on 08/09/17at 20:43; Start 07/31/17 at 21:00; Stop 08/10/17 at 18:36; Status DC Trazodone HCl (Desyrel) 50 mg PRN QHS PRN PO INSOMNIA Last administered on 22:09; Start 07/31/17 at 18:15; Stop 08/10/17 at 18:37; Status DC Magnesium Hydroxide (Milk Of Magnesia) 2,400 mg PRN DAILY PRN PO CONSTIPATION Last administered on 08/06/17 18:26; Start 08/02/17 at 19:45 Medroxyprogesterone Acetate (Provera) 7.5 mg DAILY PO Last administered on 08/06 08:48; Start 08/03/17 at 09:00; Stop 08/07/17 at 08:59; Status DC Divalproex Sodium (Depakote Sprinkles) 250 mg TID PO Last administered on 08:48; Start 08/03/17 at 21:00; Stop 08/06/17 at 10:54; Status DC Melatonin 3 mg QHS PO Last administered on 08/19/17 20:18; Start 08/03/17 at 21:00 Nystatin (Nystop) 1 danielle BID TP Last administered on 08/19/17 20:21; Start at 21:00 Medroxyprogesterone Acetate (Provera) 10 mg DAILY PO Last administered on 08:25; Start 08/07/17 at 09:00 Buspirone HCl (Buspar) 5 mg 0900,1300,1700 PO Last administered on 08/17/17 17: 18; Start 08/06/17 at 09:00; Stop 08/17/17 at 18:32; Status DC Divalproex Sodium (Depakote Sprinkles) 375 mg TID PO Last administered on 12:52; Start 08/06/17 at 14:00; Stop 08/14/17 at 18:27; Status DC Docusate Calcium (Surfak) 240 mg DAILY PO Last administered on 08/19/17 08:24 ; Start 08/07/17 at 09:00 Magnesium Citrate (Citroma) 296 ml PRN DAILY PRN PO CONSTIPATION Last administered on 08/17/17 13:32; Start 08/07/17 at 15:30 Trazodone HCl (Desyrel) 100 mg PRN QHS PRN PO INSOMNIA Last administered on 08/15 22:25; Start 08/10/17 at 18:45 Trazodone HCl (Desyrel) 100 mg QHS PO Last administered on 08/19/17 20:19; Start 08/10/17 at 21:00 Hydroxyzine Pamoate (Vistaril) 50 mg PRN Q2HR PRN PO ANXIETY; Start 08/11/17 at 18:45 Divalproex Sodium (Depakote Sprinkles) 500 mg TID PO Last administered on 20:19; Start 08/14/17 at 21:00 Hydralazine HCl (Apresoline) 10 mg TID PO Last administered on 08/19/17 20:18 ; Start 08/16/17 at 21:00 Furosemide (Lasix) 40 mg DAILY PO Last administered on 08/19/17 08:24; Start 08/18/17 at 09:00 Potassium Chloride (Klor-Con) 20 meq BID PO Last administered on 08/19/17 20: 19; Start 08/17/17 at 21:00 Buspirone HCl (Buspar) 5 mg 1300,1700 PO Last administered on 08/19/17at 17:03; Start 08/18/17 at 13:00 Buspirone HCl (Buspar) 10 mg DAILY PO Last administered on 08/19/17 08:24; Start 08/18/17 at 09:00 Active Scripts Active Reported Thiamine Hcl 100 Mg Tablet 100 Mg PO DAILY Olanzapine 5 Mg Tablet 1 Tab PO QHS Folic Acid 1 Mg Tablet 1 Tab PO DAILY Lovenox (Enoxaparin Sodium) 40 Mg/0.4 Ml Disp.syrin 0.4 Ml SQ DAILY Lisinopril 40 Mg Tablet 20 Mg PO BID Novolog Flexpen (Insulin Aspart) 100 Unit/1 Ml Insuln.pen 0-7 Unit SQ TIDAC Novolog Flexpen (Insulin Aspart) 100 Unit/1 Ml Insuln.pen 15 Unit SQ TIDAC Metoprolol Tartrate 25 Mg Tablet 100 Mg PO BID Lantus Solostar (Insulin Glargine,Hum.rec.anlog) 100 Unit/1 Ml Insuln.pen 30 Unit SQ BID Gabapentin 100 Mg Capsule 100 Mg PO TID I have reviewed the current psychotropics carefully including drug interactions. Risk benefit ratio favors no change other than as noted in my dictated progress note. Diagnosis: Problems: (1) Anxiety disorder (2) Impulse control disorder (3) Bipolar affective disorder, mixed (4) Dementia, vascular, with delusions (5) Dementia with behavioral disturbance ROXI,MAN M MD Aug 19, 2017 20:58
--- NOTE | 2017-08-19 23:44 | PN ---
DATE: 08/18/2017 This is a late entry of 08/18/2017 covers elements not covered in my initial note of 08/18/2017. SUBJECTIVE: I met with the patient evening of 08/18/2017. The patient slept 3-1/4 hours previous night. Slept in his room, then slept part of the night in the day room, woke up at night, was combative, somewhat delusional then withdrawn, irritable and labile. We will go ahead and repeat the trazodone the night of 08/18/2017 to see if it helps him sleep better. REVIEW OF SYSTEMS: Ambulation impaired with walker. No CV, , pulmonary, eye, ENT system symptoms on review. MENTAL STATUS EXAM: Oriented to himself and situation. Speech coherent, has some latency. Abstraction fair, computation impaired, language function intact, attention span short. Mood and affect still somewhat labile, anxious. LABORATORY DATA: Reviewed. IMPRESSION: Bipolar 1 disorder, mixed; major neurocognitive disorder, early Alzheimer, vascular with delusions. Rest unchanged. PLAN: BuSpar was increased. We will continue rest of the psychotropics, repeat the trazodone. Psychotropics mentioned in my initial note. MAN Newton DIANE MD DR: MATILDA/james JOB#: [id number] / [id number]
[2017-08-20 06:21] VITALS: BP 174/79
[2017-08-20] MEDS: INSULIN ASPART 300 UNITS/3 ML INSULN.PEN SQ SCH ×6 (07:30→17:19)
[2017-08-20] MEDS: INSULIN DETEMIR 300 UNITS/3 ML INSULN.PEN. SQ SCH ×2 (08:00→21:17)
[2017-08-20] MEDS: medroxyPROGESTERone 5 MG TABLET PO SCH (08:24)
[2017-08-20] MEDS: DOCUSATE CALCIUM 240 MG CAPSULE PO SCH (08:24)
[2017-08-20] MEDS: DIVALPROEX 125 MG CAP.SPRINK PO SCH ×3 (08:25→21:13)
[2017-08-20] MEDS: GABAPENTIN 100 MG CAPSULE. PO SCH ×3 (08:25→21:14)
[2017-08-20] MEDS: FOLIC ACID 1 MG TABLET PO SCH (08:25)
[2017-08-20] MEDS: POTASSIUM CHLORIDE 20 MEQ TABLET.ER. PO SCH ×2 (08:25→21:13)
[2017-08-20] MEDS: THIAMINE 100 MG TABLET. PO SCH (08:25)
[2017-08-20] MEDS: FUROSEMIDE 40 MG TABLET PO SCH (08:25)
[2017-08-20] MEDS: NYSTATIN TOPICAL POWDER 15GM BOTTLE. TP SCH ×2 (08:27→21:14)
[2017-08-20] MEDS: busPIRone 10 MG TABLET. PO SCH (08:27)
[2017-08-20 08:37] VITALS: BP 164/83
[2017-08-20] MEDS: hydrALAZINE 10 MG TABLET PO SCH ×3 (08:38→21:13)
[2017-08-20] MEDS: LISINOPRIL 20 MG TABLET PO SCH ×2 (08:38→21:14)
[2017-08-20] MEDS: METOPROLOL TART IMMED RELEASE 50 MG TABLET PO SCH ×2 (08:39→21:13)
[2017-08-20] MEDS: busPIRone 5 MG TABLET. PO SCH ×2 (12:42→17:19)
[2017-08-20 15:38] VITALS: BP 162/69
--- NOTE | 2017-08-20 20:55 | PDOC ---
Exam Note: Adriano Note: Please also refer to the separate dictated note~for this date of service dictated separately.~Patient seen individually. Discussed the patient with Nursing staff reviewed the chart.~Reviewed interim history and current functioning. Reviewed vital signs,~Labs/ Radiology~and current medications noted below. Continue current treatment with the changes noted in the dictated addendum note Assessment: Vital Signs: Vital Signs Date Time Temp Pulse Resp B/P (MAP) Pulse Ox O2 Delivery O2 Flow Rate FiO2 08/20/17 15:38 97.9 63 18 162/69 (100) 98 I&O Intake and Output 08/20/17 07:00 Intake Total 1440 ml Balance 1440 ml Intake Oral 1440 ml # Voids 1 Labs: Laboratory Tests Test 08/20/17 07:41 08/20/17 11:06 08/20/17 16:41 08/20/17 19:20 Glucose (Fingerstick) 107 mg/dL (70-99) H 160 mg/dL (70-99) H 168 mg/dL (70-99) H 194 mg/dL (70-99) H Current Medications: Meds: Current Medications Olanzapine (ZyPREXA) 5 mg QHS PO Last administered on 07/28/17at 20:43; Start at 21:00; Stop 07/29/17 at 18:42; Status DC Gabapentin (Neurontin) 100 mg TID PO Last administered on 08/20/17at 14:18; Start 07/28/17 at 21:00 Metoprolol Tartrate (Lopressor) 100 mg BID PO Last administered on 08/20/17at 08 :39; Start 07/28/17 at 21:00 Insulin Detemir (Levemir) 30 units BID SQ Last administered on 08/20/17at 08:00 ; Start 07/28/17 at 21:00 Lisinopril (Prinivil) 20 mg BID PO Last administered on 08/20/17at 08:38; Start 07/28/17 at 21:00 Insulin Aspart (NovoLOG) 0-7 UNITS TIDAC SQ Last administered on 08/20/17at 17: 17; Start 07/29/17 at 11:30 Dextrose 12.5 gm PRN Q15MIN PRN IV SEE COMMENTS; Start 07/29/17 at 09:15 Nicotine Polacrilex (Nicorette Gum) 2 mg PRN Q2HR PRN BC SMOKING CESSATION Last administered on 08/07/17at 13:47; Start 07/29/17 at 10:45 Folic Acid (Folic Acid) 1 mg DAILY PO Last administered on 08/20/17 08:25; Start 07/30/17 at 09:00 Insulin Aspart (NovoLOG) 15 units TIDAC SQ Last administered on 08/20/17 17:19 ; Start 07/29/17 at 16:30 Thiamine HCl (Vitamin B-1) 100 mg DAILY PO Last administered on 08/20/17 08:25 ; Start 07/30/17 at 09:00 Quetiapine Fumarate (SEROquel) 50 mg HS PO Last administered on 08/19/17 20:20 ; Start 07/29/17 at 21:00 Medroxyprogesterone Acetate (Provera) 2.5 mg DAILY PO Last administered on 08/01at 07:25; Start 07/30/17 at 09:00; Stop 08/02/17 at 08:59; Status DC Olanzapine (ZyPREXA ZYDIS) 2.5 mg PRN Q2HR PRN PO PSYCHOSIS Last administered on 08/05/17at 11:32; Start 07/29/17 at 18:45 Divalproex Sodium (Depakote Sprinkles) 125 mg TID PO Last administered on at 13:11; Start 07/30/17 at 14:00; Stop 08/03/17 at 18:52; Status DC Medroxyprogesterone Acetate (Provera) 5 mg DAILY PO Last administered on at 07:54; Start 08/02/17 at 09:00; Stop 08/02/17 at 21:43; Status DC Trazodone HCl (Desyrel) 50 mg QHS PO Last administered on 08/09/17 20:43; Start 07/31/17 at 21:00; Stop 08/10/17 at 18:36; Status DC Trazodone HCl (Desyrel) 50 mg PRN QHS PRN PO INSOMNIA Last administered on 22:09; Start 07/31/17 at 18:15; Stop 08/10/17 at 18:37; Status DC Magnesium Hydroxide (Milk Of Magnesia) 2,400 mg PRN DAILY PRN PO CONSTIPATION Last administered on 08/06/17 18:26; Start 08/02/17 at 19:45 Medroxyprogesterone Acetate (Provera) 7.5 mg DAILY PO Last administered on 08/06 08:48; Start 08/03/17 at 09:00; Stop 08/07/17 at 08:59; Status DC Divalproex Sodium (Depakote Sprinkles) 250 mg TID PO Last administered on 08:48; Start 08/03/17 at 21:00; Stop 08/06/17 at 10:54; Status DC Melatonin 3 mg QHS PO Last administered on 08/19/17 20:18; Start 08/03/17 at 21:00 Nystatin (Nystop) 1 danielle BID TP Last administered on 08/20/17 08:27; Start at 21:00 Medroxyprogesterone Acetate (Provera) 10 mg DAILY PO Last administered on 08:24; Start 08/07/17 at 09:00 Buspirone HCl (Buspar) 5 mg 0900,1300,1700 PO Last administered on 08/17/17 17: 18; Start 08/06/17 at 09:00; Stop 08/17/17 at 18:32; Status DC Divalproex Sodium (Depakote Sprinkles) 375 mg TID PO Last administered on 12:52; Start 08/06/17 at 14:00; Stop 08/14/17 at 18:27; Status DC Docusate Calcium (Surfak) 240 mg DAILY PO Last administered on 08/20/17 08:24 ; Start 08/07/17 at 09:00 Magnesium Citrate (Citroma) 296 ml PRN DAILY PRN PO CONSTIPATION Last administered on 08/17/17 13:32; Start 08/07/17 at 15:30 Trazodone HCl (Desyrel) 100 mg PRN QHS PRN PO INSOMNIA Last administered on 08/15 22:25; Start 08/10/17 at 18:45 Trazodone HCl (Desyrel) 100 mg QHS PO Last administered on 4/11/18at 20:19; Start 08/10/17 at 21:00 Hydroxyzine Pamoate (Vistaril) 50 mg PRN Q2HR PRN PO ANXIETY; Start 08/11/17 at 18:45 Divalproex Sodium (Depakote Sprinkles) 500 mg TID PO Last administered on at 14:18; Start 08/14/17 at 21:00 Hydralazine HCl (Apresoline) 10 mg TID PO Last administered on 08/20/17at 14:50 ; Start 08/16/17 at 21:00 Furosemide (Lasix) 40 mg DAILY PO Last administered on 08/20/17at 08:25; Start 08/18/17 at 09:00 Potassium Chloride (Klor-Con) 20 meq BID PO Last administered on 08/20/17at 08: 25; Start 08/17/17 at 21:00 Buspirone HCl (Buspar) 5 mg 1300,1700 PO Last administered on 08/20/17at 17:19; Start 08/18/17 at 13:00 Buspirone HCl (Buspar) 10 mg DAILY PO Last administered on 08/20/17at 08:27; Start 08/18/17 at 09:00 Active Scripts Active Reported Thiamine Hcl 100 Mg Tablet 100 Mg PO DAILY Olanzapine 5 Mg Tablet 1 Tab PO QHS Folic Acid 1 Mg Tablet 1 Tab PO DAILY Lovenox (Enoxaparin Sodium) 40 Mg/0.4 Ml Disp.syrin 0.4 Ml SQ DAILY Lisinopril 40 Mg Tablet 20 Mg PO BID Novolog Flexpen (Insulin Aspart) 100 Unit/1 Ml Insuln.pen 0-7 Unit SQ TIDAC Novolog Flexpen (Insulin Aspart) 100 Unit/1 Ml Insuln.pen 15 Unit SQ TIDAC Metoprolol Tartrate 25 Mg Tablet 100 Mg PO BID Lantus Solostar (Insulin Glargine,Hum.rec.anlog) 100 Unit/1 Ml Insuln.pen 30 Unit SQ BID Gabapentin 100 Mg Capsule 100 Mg PO TID I have reviewed the current psychotropics carefully including drug interactions. Risk benefit ratio favors no change other than as noted in my dictated progress note. Diagnosis: Problems: (1) Anxiety disorder (2) Impulse control disorder (3) Bipolar affective disorder, mixed (4) Dementia, vascular, with delusions (5) Dementia with behavioral disturbance ROXI,MAN M MD Aug 20, 2017 20:55
[2017-08-20] MEDS: MELATONIN 3 MG TABLET PO SCH (21:12)
[2017-08-20] MEDS: traZODone 100 MG TABLET. PO SCH (21:13)
[2017-08-20] MEDS: QUEtiapine 50 MG TABLET. PO SCH (21:13)
[2017-08-21 06:47] VITALS: BP 136/68
[2017-08-21] MEDS: INSULIN ASPART 300 UNITS/3 ML INSULN.PEN SQ SCH ×6 (07:30→16:42)
[2017-08-21] MEDS: FUROSEMIDE 40 MG TABLET PO SCH (08:16)
[2017-08-21] MEDS: DIVALPROEX 125 MG CAP.SPRINK PO SCH ×3 (08:16→20:32)
[2017-08-21] MEDS: LISINOPRIL 20 MG TABLET PO SCH ×2 (08:16→20:32)
[2017-08-21] MEDS: FOLIC ACID 1 MG TABLET PO SCH (08:16)
[2017-08-21] MEDS: busPIRone 10 MG TABLET. PO SCH (08:16)
[2017-08-21] MEDS: GABAPENTIN 100 MG CAPSULE. PO SCH ×3 (08:16→20:31)
[2017-08-21] MEDS: THIAMINE 100 MG TABLET. PO SCH (08:16)
[2017-08-21] MEDS: medroxyPROGESTERone 5 MG TABLET PO SCH (08:16)
[2017-08-21] MEDS: DOCUSATE CALCIUM 240 MG CAPSULE PO SCH (08:16)
[2017-08-21] MEDS: hydrALAZINE 10 MG TABLET PO SCH ×3 (08:17→20:32)
[2017-08-21] MEDS: NYSTATIN TOPICAL POWDER 15GM BOTTLE. TP SCH ×2 (08:17→20:33)
[2017-08-21] MEDS: POTASSIUM CHLORIDE 20 MEQ TABLET.ER. PO SCH ×2 (08:17→20:31)
[2017-08-21] MEDS: METOPROLOL TART IMMED RELEASE 50 MG TABLET PO SCH ×2 (08:18→20:32)
[2017-08-21] MEDS: INSULIN DETEMIR 300 UNITS/3 ML INSULN.PEN. SQ SCH ×2 (08:24→20:35)
[2017-08-21] MEDS: busPIRone 5 MG TABLET. PO SCH ×2 (13:02→16:42)
[2017-08-21 14:41] VITALS: BP 172/77
[2017-08-21 16:17] VITALS: BP 177/71
[2017-08-21] MEDS: traZODone 100 MG TABLET. PO PRN (20:31)
[2017-08-21] MEDS: QUEtiapine 50 MG TABLET. PO SCH (20:32)
[2017-08-21] MEDS: MELATONIN 3 MG TABLET PO SCH (20:32)
[2017-08-21] MEDS: traZODone 150 MG TABLET. PO SCH (20:33)
--- NOTE | 2017-08-21 20:56 | PDOC ---
Exam Note: Adriano Note: Please also refer to the separate dictated note~for this date of service dictated separately.~Patient seen individually. Discussed the patient with Nursing staff reviewed the chart.~Reviewed interim history and current functioning. Reviewed vital signs,~Labs/ Radiology~and current medications noted below. Continue current treatment with the changes noted in the dictated addendum note Assessment: Vital Signs: Vital Signs Date Time Temp Pulse Resp B/P (MAP) Pulse Ox O2 Delivery O2 Flow Rate FiO2 08/21/17 20:32 65 177/71 08/21/17 16:17 97.5 18 99 I&O Intake and Output 08/21/17 07:00 Intake Total 1080 ml Balance 1080 ml Intake Oral 1080 ml Labs: Laboratory Tests Test 08/21/17 07:09 08/21/17 11:29 08/21/17 16:23 08/21/17 19:15 Glucose (Fingerstick) 106 mg/dL (70-99) H 160 mg/dL (70-99) H 181 mg/dL (70-99) H 215 mg/dL (70-99) H Current Medications: Meds: Current Medications Olanzapine (ZyPREXA) 5 mg QHS PO Last administered on 07/28/17at 20:43; Start at 21:00; Stop 07/29/17 at 18:42; Status DC Gabapentin (Neurontin) 100 mg TID PO Last administered on 08/21/17at 20:31; Start 07/28/17 at 21:00 Metoprolol Tartrate (Lopressor) 100 mg BID PO Last administered on 08/21/17 20 :32; Start 07/28/17 at 21:00 Insulin Detemir (Levemir) 30 units BID SQ Last administered on 08/21/17at 20:35 ; Start 07/28/17 at 21:00 Lisinopril (Prinivil) 20 mg BID PO Last administered on 08/21/17 20:32; Start 07/28/17 at 21:00 Insulin Aspart (NovoLOG) 0-7 UNITS TIDAC SQ Last administered on 08/21/17at 16: 41; Start 07/29/17 at 11:30 Dextrose 12.5 gm PRN Q15MIN PRN IV SEE COMMENTS; Start 07/29/17 at 09:15 Nicotine Polacrilex (Nicorette Gum) 2 mg PRN Q2HR PRN BC SMOKING CESSATION Last administered on 08/07/17 13:47; Start 07/29/17 at 10:45 Folic Acid (Folic Acid) 1 mg DAILY PO Last administered on 08/21/17 08:16; Start 07/30/17 at 09:00 Insulin Aspart (NovoLOG) 15 units TIDAC SQ Last administered on 08/21/17at 16:42 ; Start 07/29/17 at 16:30 Thiamine HCl (Vitamin B-1) 100 mg DAILY PO Last administered on 08/21/17 08:16 ; Start 07/30/17 at 09:00 Quetiapine Fumarate (SEROquel) 50 mg HS PO Last administered on 08/21/17 20:32 ; Start 07/29/17 at 21:00 Medroxyprogesterone Acetate (Provera) 2.5 mg DAILY PO Last administered on 08/01at 07:25; Start 07/30/17 at 09:00; Stop 08/02/17 at 08:59; Status DC Olanzapine (ZyPREXA ZYDIS) 2.5 mg PRN Q2HR PRN PO PSYCHOSIS Last administered on 08/05/17at 11:32; Start 07/29/17 at 18:45 Divalproex Sodium (Depakote Sprinkles) 125 mg TID PO Last administered on 13:11; Start 07/30/17 at 14:00; Stop 08/03/17 at 18:52; Status DC Medroxyprogesterone Acetate (Provera) 5 mg DAILY PO Last administered on at 07:54; Start 08/02/17 at 09:00; Stop 08/02/17 at 21:43; Status DC Trazodone HCl (Desyrel) 50 mg QHS PO Last administered on 08/09/17 20:43; Start 07/31/17 at 21:00; Stop 08/10/17 at 18:36; Status DC Trazodone HCl (Desyrel) 50 mg PRN QHS PRN PO INSOMNIA Last administered on 22:09; Start 07/31/17 at 18:15; Stop 08/10/17 at 18:37; Status DC Magnesium Hydroxide (Milk Of Magnesia) 2,400 mg PRN DAILY PRN PO CONSTIPATION Last administered on 08/06/17 18:26; Start 08/02/17 at 19:45 Medroxyprogesterone Acetate (Provera) 7.5 mg DAILY PO Last administered on 08/06 08:48; Start 08/03/17 at 09:00; Stop 08/07/17 at 08:59; Status DC Divalproex Sodium (Depakote Sprinkles) 250 mg TID PO Last administered on 08:48; Start 08/03/17 at 21:00; Stop 08/06/17 at 10:54; Status DC Melatonin 3 mg QHS PO Last administered on 08/21/17 20:32; Start 08/03/17 at 21:00 Nystatin (Nystop) 1 danielle BID TP Last administered on 08/21/17 20:33; Start at 21:00 Medroxyprogesterone Acetate (Provera) 10 mg DAILY PO Last administered on 08:16; Start 08/07/17 at 09:00 Buspirone HCl (Buspar) 5 mg 0900,1300,1700 PO Last administered on 08/17/17 17: 18; Start 08/06/17 at 09:00; Stop 08/17/17 at 18:32; Status DC Divalproex Sodium (Depakote Sprinkles) 375 mg TID PO Last administered on 12:52; Start 08/06/17 at 14:00; Stop 08/14/17 at 18:27; Status DC Docusate Calcium (Surfak) 240 mg DAILY PO Last administered on 08/21/17 08:16 ; Start 08/07/17 at 09:00 Magnesium Citrate (Citroma) 296 ml PRN DAILY PRN PO CONSTIPATION Last administered on 08/17/17 13:32; Start 08/07/17 at 15:30 Trazodone HCl (Desyrel) 100 mg PRN QHS PRN PO INSOMNIA Last administered on 20:31; Start 08/10/17 at 18:45 Trazodone HCl (Desyrel) 100 mg QHS PO Last administered on 08/20/17 21:13; Start 08/10/17 at 21:00; Stop 08/21/17 at 18:27; Status DC Hydroxyzine Pamoate (Vistaril) 50 mg PRN Q2HR PRN PO ANXIETY; Start 08/11/17 at 18:45 Divalproex Sodium (Depakote Sprinkles) 500 mg TID PO Last administered on 20:32; Start 08/14/17 at 21:00 Hydralazine HCl (Apresoline) 10 mg TID PO Last administered on 08/21/17 20:32 ; Start 08/16/17 at 21:00 Furosemide (Lasix) 40 mg DAILY PO Last administered on 08/21/17 08:16; Start 08/18/17 at 09:00 Potassium Chloride (Klor-Con) 20 meq BID PO Last administered on 08/21/17at 20: 31; Start 08/17/17 at 21:00 Buspirone HCl (Buspar) 5 mg 1300,1700 PO Last administered on 08/21/17at 16:42; Start 08/18/17 at 13:00 Buspirone HCl (Buspar) 10 mg DAILY PO Last administered on 08/21/17 08:16; Start 08/18/17 at 09:00 Trazodone HCl (Desyrel) 150 mg QHS PO Last administered on 08/21/17 20:33; Start 08/21/17 at 21:00 Active Scripts Active Reported Thiamine Hcl 100 Mg Tablet 100 Mg PO DAILY Olanzapine 5 Mg Tablet 1 Tab PO QHS Folic Acid 1 Mg Tablet 1 Tab PO DAILY Lovenox (Enoxaparin Sodium) 40 Mg/0.4 Ml Disp.syrin 0.4 Ml SQ DAILY Lisinopril 40 Mg Tablet 20 Mg PO BID Novolog Flexpen (Insulin Aspart) 100 Unit/1 Ml Insuln.pen 0-7 Unit SQ TIDAC Novolog Flexpen (Insulin Aspart) 100 Unit/1 Ml Insuln.pen 15 Unit SQ TIDAC Metoprolol Tartrate 25 Mg Tablet 100 Mg PO BID Lantus Solostar (Insulin Glargine,Hum.rec.anlog) 100 Unit/1 Ml Insuln.pen 30 Unit SQ BID Gabapentin 100 Mg Capsule 100 Mg PO TID I have reviewed the current psychotropics carefully including drug interactions. Risk benefit ratio favors no change other than as noted in my dictated progress note. Diagnosis: Problems: (1) Anxiety disorder (2) Impulse control disorder (3) Bipolar affective disorder, mixed (4) Dementia, vascular, with delusions (5) Dementia with behavioral disturbance LIZ DIANE MD Aug 21, 2017 20:56
--- NOTE | 2017-08-21 22:24 | PN ---
DATE: 08/19/2017 PSYCHIATRIC PROGRESS NOTE This late entry 08/19/2017 covers elements not covered in my initial note of 08/19/2017. SUBJECTIVE: I met with the patient in evening of 08/19/2017. The patient is compliant with his medications, but somewhat sexually inappropriate in his comments, talking about "skinny dipping" to female nursing staff. He slept in the day room previous night 8 hours. REVIEW OF SYSTEMS: Ambulation is impaired with walker. No CV, , pulmonary, eye, ENT system symptoms on review. MENTAL STATUS EXAM: Oriented to self, situation. Speech has some latency, coherent. Abstraction fair, computation is impaired, language function intact. Attention span is short. Short term memory is impaired. No active suicidal or homicidal ideation. LABORATORY DATA: Reviewed. IMPRESSION: Schizoaffective disorder, bipolar type, mixed with psychotic features; major neurocognitive disorder, Alzheimer, vascular with delusion, depression. PLAN: Continue psychotropics mentioned in my initial note. Valproic acid level is therapeutic at 58. MAN Newton DIANE MD DR: MATILDA/james JOB#: [id number] / [id number]
[2017-08-22] MEDS: traZODone 100 MG TABLET. PO PRN (02:00)
--- NOTE | 2017-08-22 04:26 | PN ---
DATE: 08/20/2017 This is a late entry for 08/20/2017 covers elements not covered in my initial note of 08/20/2017. SUBJECTIVE: I met with the patient in the evening of 08/20/2017, staffed at a treatment team meeting with the entire team in the morning of 08/20/2017. Overall, the patient has been less hypersexual, less comments with this respect. REVIEW OF SYSTEMS: Ambulation impaired with walker. No CV, , pulmonary, eye system symptoms on review. MENTAL STATUS EXAM: Oriented to himself, at times situation. Speech has some latency, often responses monosyllabic. Abstraction fair, computation impaired, language function intact, attention span short. Mood and affect somewhat withdrawn. LABORATORY DATA: Reviewed. IMPRESSION: Bipolar 1 disorder, mixed, major neurocognitive disorder, Alzheimer, vascular with delusion. PLAN: Continue psychotropics mentioned in my initial note. There social service staff are diligently looking for placement. LIZ DIANE MD DR: MATILDA/james JOB#: [id number] / [id number]
[2017-08-22 06:32] VITALS: BP 173/66
[2017-08-22] MEDS: POTASSIUM CHLORIDE 20 MEQ TABLET.ER. PO SCH ×2 (08:13→20:36)
[2017-08-22] MEDS: DOCUSATE CALCIUM 240 MG CAPSULE PO SCH (08:13)
[2017-08-22] MEDS: busPIRone 10 MG TABLET. PO SCH (08:14)
[2017-08-22] MEDS: GABAPENTIN 100 MG CAPSULE. PO SCH ×3 (08:14→20:32)
[2017-08-22] MEDS: THIAMINE 100 MG TABLET. PO SCH (08:14)
[2017-08-22] MEDS: DIVALPROEX 125 MG CAP.SPRINK PO SCH ×3 (08:14→20:33)
[2017-08-22] MEDS: FUROSEMIDE 40 MG TABLET PO SCH (08:14)
[2017-08-22] MEDS: FOLIC ACID 1 MG TABLET PO SCH (08:14)
[2017-08-22] MEDS: LISINOPRIL 20 MG TABLET PO SCH ×2 (08:15→20:33)
[2017-08-22] MEDS: METOPROLOL TART IMMED RELEASE 50 MG TABLET PO SCH ×2 (08:15→20:33)
[2017-08-22] MEDS: hydrALAZINE 10 MG TABLET PO SCH ×2 (08:15→14:19)
[2017-08-22] MEDS: NYSTATIN TOPICAL POWDER 15GM BOTTLE. TP SCH ×2 (08:19→20:36)
[2017-08-22] MEDS: medroxyPROGESTERone 5 MG TABLET PO SCH (08:19)
[2017-08-22] MEDS: INSULIN DETEMIR 300 UNITS/3 ML INSULN.PEN. SQ SCH ×2 (08:26→20:37)
[2017-08-22] MEDS: INSULIN ASPART 300 UNITS/3 ML INSULN.PEN SQ SCH ×6 (08:27→17:21)
[2017-08-22] MEDS: busPIRone 5 MG TABLET. PO SCH ×2 (12:33→17:15)
[2017-08-22 14:18] VITALS: BP 166/82
[2017-08-22] MEDS: hydrALAZINE 25 MG TABLET PO SCH ×2 (15:15→20:34)
[2017-08-22 16:31] VITALS: BP 186/72
--- NOTE | 2017-08-22 19:54 | PDOC ---
Exam Note: Adriano Note: Please also refer to the separate dictated note~for this date of service dictated separately.~Patient seen individually. Discussed the patient with Nursing staff reviewed the chart.~Reviewed interim history and current functioning. Reviewed vital signs,~Labs/ Radiology~and current medications noted below. Continue current treatment with the changes noted in the dictated addendum note Assessment: Vital Signs: Vital Signs Date Time Temp Pulse Resp B/P (MAP) Pulse Ox O2 Delivery O2 Flow Rate FiO2 08/22/17 16:31 98.1 65 22 186/72 (110) 99 Room Air I&O Intake and Output 08/22/17 07:00 Intake Total 1320 ml Balance 1320 ml Intake Oral 1320 ml # Bowel Movements 1 Labs: Laboratory Tests Test 08/22/17 07:28 08/22/17 11:46 08/22/17 16:50 08/22/17 19:16 Glucose (Fingerstick) 171 mg/dL (70-99) H 192 mg/dL (70-99) H 221 mg/dL (70-99) H 258 mg/dL (70-99) H Current Medications: Meds: Current Medications Olanzapine (ZyPREXA) 5 mg QHS PO Last administered on 07/28/17at 20:43; Start at 21:00; Stop 07/29/17 at 18:42; Status DC Gabapentin (Neurontin) 100 mg TID PO Last administered on 08/22/17at 14:11; Start 07/28/17 at 21:00 Metoprolol Tartrate (Lopressor) 100 mg BID PO Last administered on 08/22/17at 08 :15; Start 07/28/17 at 21:00 Insulin Detemir (Levemir) 30 units BID SQ Last administered on 08/22/17at 08:26 ; Start 07/28/17 at 21:00 Lisinopril (Prinivil) 20 mg BID PO Last administered on 08/22/17at 08:15; Start 07/28/17 at 21:00 Insulin Aspart (NovoLOG) 0-7 UNITS TIDAC SQ Last administered on 08/22/17at 17: 21; Start 07/29/17 at 11:30 Dextrose 12.5 gm PRN Q15MIN PRN IV SEE COMMENTS; Start 07/29/17 at 09:15 Nicotine Polacrilex (Nicorette Gum) 2 mg PRN Q2HR PRN BC SMOKING CESSATION Last administered on 08/07/17 13:47; Start 07/29/17 at 10:45 Folic Acid (Folic Acid) 1 mg DAILY PO Last administered on 08/22/17at 08:14; Start 07/30/17 at 09:00 Insulin Aspart (NovoLOG) 15 units TIDAC SQ Last administered on 08/22/17at 17:21 ; Start 07/29/17 at 16:30 Thiamine HCl (Vitamin B-1) 100 mg DAILY PO Last administered on 08/22/17 08:14 ; Start 07/30/17 at 09:00 Quetiapine Fumarate (SEROquel) 50 mg HS PO Last administered on 08/21/17 20:32 ; Start 07/29/17 at 21:00 Medroxyprogesterone Acetate (Provera) 2.5 mg DAILY PO Last administered on 08/01at 07:25; Start 07/30/17 at 09:00; Stop 08/02/17 at 08:59; Status DC Olanzapine (ZyPREXA ZYDIS) 2.5 mg PRN Q2HR PRN PO PSYCHOSIS Last administered on 08/05/17at 11:32; Start 07/29/17 at 18:45 Divalproex Sodium (Depakote Sprinkles) 125 mg TID PO Last administered on at 13:11; Start 07/30/17 at 14:00; Stop 08/03/17 at 18:52; Status DC Medroxyprogesterone Acetate (Provera) 5 mg DAILY PO Last administered on at 07:54; Start 08/02/17 at 09:00; Stop 08/02/17 at 21:43; Status DC Trazodone HCl (Desyrel) 50 mg QHS PO Last administered on 08/09/17at 20:43; Start 07/31/17 at 21:00; Stop 08/10/17 at 18:36; Status DC Trazodone HCl (Desyrel) 50 mg PRN QHS PRN PO INSOMNIA Last administered on 22:09; Start 07/31/17 at 18:15; Stop 08/10/17 at 18:37; Status DC Magnesium Hydroxide (Milk Of Magnesia) 2,400 mg PRN DAILY PRN PO CONSTIPATION Last administered on 08/06/17 18:26; Start 08/02/17 at 19:45 Medroxyprogesterone Acetate (Provera) 7.5 mg DAILY PO Last administered on 08/06 08:48; Start 08/03/17 at 09:00; Stop 08/07/17 at 08:59; Status DC Divalproex Sodium (Depakote Sprinkles) 250 mg TID PO Last administered on 08:48; Start 08/03/17 at 21:00; Stop 08/06/17 at 10:54; Status DC Melatonin 3 mg QHS PO Last administered on 08/21/17 20:32; Start 08/03/17 at 21:00 Nystatin (Nystop) 1 danielle BID TP Last administered on 08/22/17 08:19; Start at 21:00 Medroxyprogesterone Acetate (Provera) 10 mg DAILY PO Last administered on 08:19; Start 08/07/17 at 09:00 Buspirone HCl (Buspar) 5 mg 0900,1300,1700 PO Last administered on 08/17/17 17: 18; Start 08/06/17 at 09:00; Stop 08/17/17 at 18:32; Status DC Divalproex Sodium (Depakote Sprinkles) 375 mg TID PO Last administered on 12:52; Start 08/06/17 at 14:00; Stop 08/14/17 at 18:27; Status DC Docusate Calcium (Surfak) 240 mg DAILY PO Last administered on 08/22/17 08:13 ; Start 08/07/17 at 09:00 Magnesium Citrate (Citroma) 296 ml PRN DAILY PRN PO CONSTIPATION Last administered on 08/17/17 13:32; Start 08/07/17 at 15:30 Trazodone HCl (Desyrel) 100 mg PRN QHS PRN PO INSOMNIA Last administered on 02:00; Start 08/10/17 at 18:45 Trazodone HCl (Desyrel) 100 mg QHS PO Last administered on 4/12/18at 21:13; Start 08/10/17 at 21:00; Stop 08/21/17 at 18:27; Status DC Hydroxyzine Pamoate (Vistaril) 50 mg PRN Q2HR PRN PO ANXIETY; Start 08/11/17 at 18:45 Divalproex Sodium (Depakote Sprinkles) 500 mg TID PO Last administered on at 14:11; Start 08/14/17 at 21:00 Hydralazine HCl (Apresoline) 10 mg TID PO Last administered on 08/22/17at 14:19 ; Start 08/16/17 at 21:00; Stop 08/22/17 at 14:53; Status DC Furosemide (Lasix) 40 mg DAILY PO Last administered on 08/22/17at 08:14; Start 08/18/17 at 09:00 Potassium Chloride (Klor-Con) 20 meq BID PO Last administered on 08/22/17at 08: 13; Start 08/17/17 at 21:00 Buspirone HCl (Buspar) 5 mg 1300,1700 PO Last administered on 08/22/17at 17:15; Start 08/18/17 at 13:00 Buspirone HCl (Buspar) 10 mg DAILY PO Last administered on 08/22/17at 08:14; Start 08/18/17 at 09:00 Trazodone HCl (Desyrel) 150 mg QHS PO Last administered on 08/21/17at 20:33; Start 08/21/17 at 21:00 Hydralazine HCl (Apresoline) 25 mg TID PO ; Start 08/22/17 at 15:15 Active Scripts Active Reported Thiamine Hcl 100 Mg Tablet 100 Mg PO DAILY Olanzapine 5 Mg Tablet 1 Tab PO QHS Folic Acid 1 Mg Tablet 1 Tab PO DAILY Lovenox (Enoxaparin Sodium) 40 Mg/0.4 Ml Disp.syrin 0.4 Ml SQ DAILY Lisinopril 40 Mg Tablet 20 Mg PO BID Novolog Flexpen (Insulin Aspart) 100 Unit/1 Ml Insuln.pen 0-7 Unit SQ TIDAC Novolog Flexpen (Insulin Aspart) 100 Unit/1 Ml Insuln.pen 15 Unit SQ TIDAC Metoprolol Tartrate 25 Mg Tablet 100 Mg PO BID Lantus Solostar (Insulin Glargine,Hum.rec.anlog) 100 Unit/1 Ml Insuln.pen 30 Unit SQ BID Gabapentin 100 Mg Capsule 100 Mg PO TID I have reviewed the current psychotropics carefully including drug interactions. Risk benefit ratio favors no change other than as noted in my dictated progress note. Diagnosis: Problems: (1) Anxiety disorder (2) Impulse control disorder (3) Bipolar affective disorder, mixed (4) Dementia, vascular, with delusions (5) Dementia with behavioral disturbance LIZ DIANE MD Aug 22, 2017 19:54
[2017-08-22] MEDS: traZODone 150 MG TABLET. PO SCH (20:33)
[2017-08-22] MEDS: MELATONIN 3 MG TABLET PO SCH (20:34)
[2017-08-22] MEDS: QUEtiapine 50 MG TABLET. PO SCH (20:34)
[2017-08-23] MEDS: hydrALAZINE 25 MG TABLET PO SCH ×3 (06:24→19:22)
[2017-08-23 06:25] VITALS: BP 190/89
[2017-08-23] MEDS: THIAMINE 100 MG TABLET. PO SCH (08:38)
[2017-08-23] MEDS: METOPROLOL TART IMMED RELEASE 50 MG TABLET PO SCH ×2 (08:38→19:23)
[2017-08-23] MEDS: POTASSIUM CHLORIDE 20 MEQ TABLET.ER. PO SCH ×2 (08:38→19:22)
[2017-08-23] MEDS: medroxyPROGESTERone 5 MG TABLET PO SCH (08:38)
[2017-08-23] MEDS: LISINOPRIL 20 MG TABLET PO SCH ×2 (08:39→19:23)
[2017-08-23] MEDS: GABAPENTIN 100 MG CAPSULE. PO SCH ×3 (08:39→19:23)
[2017-08-23] MEDS: busPIRone 10 MG TABLET. PO SCH (08:39)
[2017-08-23] MEDS: FOLIC ACID 1 MG TABLET PO SCH (08:39)
[2017-08-23] MEDS: DIVALPROEX 125 MG CAP.SPRINK PO SCH ×3 (08:39→19:22)
[2017-08-23] MEDS: FUROSEMIDE 40 MG TABLET PO SCH (08:39)
[2017-08-23] MEDS: DOCUSATE CALCIUM 240 MG CAPSULE PO SCH (08:39)
[2017-08-23] MEDS: INSULIN DETEMIR 300 UNITS/3 ML INSULN.PEN. SQ SCH ×2 (08:47→19:29)
[2017-08-23] MEDS: INSULIN ASPART 300 UNITS/3 ML INSULN.PEN SQ SCH ×6 (08:48→16:51)
[2017-08-23] MEDS: NYSTATIN TOPICAL POWDER 15GM BOTTLE. TP SCH ×2 (09:00→19:24)
[2017-08-23] MEDS: busPIRone 5 MG TABLET. PO SCH ×2 (13:09→16:49)
[2017-08-23 17:03] VITALS: BP 175/65
[2017-08-23] MEDS: MELATONIN 3 MG TABLET PO SCH (19:21)
[2017-08-23] MEDS: traZODone 150 MG TABLET. PO SCH (19:22)
[2017-08-23] MEDS: QUEtiapine 50 MG TABLET. PO SCH (19:23)
--- NOTE | 2017-08-23 22:15 | PDOC ---
Exam Note: Adriano Note: Please also refer to the separate dictated note~for this date of service dictated separately.~Patient seen individually. Discussed the patient with Nursing staff reviewed the chart.~Reviewed interim history and current functioning. Reviewed vital signs,~Labs/ Radiology~and current medications noted below. Continue current treatment with the changes noted in the dictated addendum note Assessment: Vital Signs: Vital Signs Date Time Temp Pulse Resp B/P (MAP) Pulse Ox O2 Delivery O2 Flow Rate FiO2 08/23/17 19:23 69 175/65 08/23/17 17:03 98.4 18 96 08/22/17 16:31 Room Air I&O Intake and Output 08/23/17 07:00 Intake Total 1800 ml Balance 1800 ml Intake Oral 1800 ml Labs: Laboratory Tests Test 08/23/17 07:03 08/23/17 11:04 08/23/17 16:20 08/23/17 19:04 Glucose (Fingerstick) 161 mg/dL (70-99) H 251 mg/dL (70-99) H 179 mg/dL (70-99) H 214 mg/dL (70-99) H Current Medications: Meds: Current Medications Olanzapine (ZyPREXA) 5 mg QHS PO Last administered on 07/28/17 20:43; Start at 21:00; Stop 07/29/17 at 18:42; Status DC Gabapentin (Neurontin) 100 mg TID PO Last administered on 08/23/17 19:23; Start 07/28/17 at 21:00 Metoprolol Tartrate (Lopressor) 100 mg BID PO Last administered on 08/23/17 19 :23; Start 07/28/17 at 21:00 Insulin Detemir (Levemir) 30 units BID SQ Last administered on 08/23/17at 19:29 ; Start 07/28/17 at 21:00 Lisinopril (Prinivil) 20 mg BID PO Last administered on 08/23/17 19:23; Start 07/28/17 at 21:00 Insulin Aspart (NovoLOG) 0-7 UNITS TIDAC SQ Last administered on 08/23/17at 16: 50; Start 07/29/17 at 11:30 Dextrose 12.5 gm PRN Q15MIN PRN IV SEE COMMENTS; Start 07/29/17 at 09:15 Nicotine Polacrilex (Nicorette Gum) 2 mg PRN Q2HR PRN BC SMOKING CESSATION Last administered on 08/07/17 13:47; Start 07/29/17 at 10:45 Folic Acid (Folic Acid) 1 mg DAILY PO Last administered on 08/23/17 08:39; Start 07/30/17 at 09:00 Insulin Aspart (NovoLOG) 15 units TIDAC SQ Last administered on 08/23/17at 16:51 ; Start 07/29/17 at 16:30 Thiamine HCl (Vitamin B-1) 100 mg DAILY PO Last administered on 08/23/17 08:38 ; Start 07/30/17 at 09:00 Quetiapine Fumarate (SEROquel) 50 mg HS PO Last administered on 08/23/17 19:23 ; Start 07/29/17 at 21:00 Medroxyprogesterone Acetate (Provera) 2.5 mg DAILY PO Last administered on 08/01 07:25; Start 07/30/17 at 09:00; Stop 08/02/17 at 08:59; Status DC Olanzapine (ZyPREXA ZYDIS) 2.5 mg PRN Q2HR PRN PO PSYCHOSIS Last administered on 08/05/17at 11:32; Start 07/29/17 at 18:45 Divalproex Sodium (Depakote Sprinkles) 125 mg TID PO Last administered on 13:11; Start 07/30/17 at 14:00; Stop 08/03/17 at 18:52; Status DC Medroxyprogesterone Acetate (Provera) 5 mg DAILY PO Last administered on at 07:54; Start 08/02/17 at 09:00; Stop 08/02/17 at 21:43; Status DC Trazodone HCl (Desyrel) 50 mg QHS PO Last administered on 08/09/17at 20:43; Start 07/31/17 at 21:00; Stop 08/10/17 at 18:36; Status DC Trazodone HCl (Desyrel) 50 mg PRN QHS PRN PO INSOMNIA Last administered on 22:09; Start 07/31/17 at 18:15; Stop 08/10/17 at 18:37; Status DC Magnesium Hydroxide (Milk Of Magnesia) 2,400 mg PRN DAILY PRN PO CONSTIPATION Last administered on 08/06/17 18:26; Start 08/02/17 at 19:45 Medroxyprogesterone Acetate (Provera) 7.5 mg DAILY PO Last administered on 08/06 08:48; Start 08/03/17 at 09:00; Stop 08/07/17 at 08:59; Status DC Divalproex Sodium (Depakote Sprinkles) 250 mg TID PO Last administered on 08:48; Start 08/03/17 at 21:00; Stop 08/06/17 at 10:54; Status DC Melatonin 3 mg QHS PO Last administered on 08/23/17 19:21; Start 08/03/17 at 21:00 Nystatin (Nystop) 1 danielle BID TP Last administered on 08/23/17 19:24; Start at 21:00 Medroxyprogesterone Acetate (Provera) 10 mg DAILY PO Last administered on 08:38; Start 08/07/17 at 09:00 Buspirone HCl (Buspar) 5 mg 0900,1300,1700 PO Last administered on 08/17/17 17: 18; Start 08/06/17 at 09:00; Stop 08/17/17 at 18:32; Status DC Divalproex Sodium (Depakote Sprinkles) 375 mg TID PO Last administered on 12:52; Start 08/06/17 at 14:00; Stop 08/14/17 at 18:27; Status DC Docusate Calcium (Surfak) 240 mg DAILY PO Last administered on 08/23/17 08:39 ; Start 08/07/17 at 09:00 Magnesium Citrate (Citroma) 296 ml PRN DAILY PRN PO CONSTIPATION Last administered on 08/17/17 13:32; Start 08/07/17 at 15:30 Trazodone HCl (Desyrel) 100 mg PRN QHS PRN PO INSOMNIA Last administered on 02:00; Start 08/10/17 at 18:45 Trazodone HCl (Desyrel) 100 mg QHS PO Last administered on 08/20/17 21:13; Start 08/10/17 at 21:00; Stop 08/21/17 at 18:27; Status DC Hydroxyzine Pamoate (Vistaril) 50 mg PRN Q2HR PRN PO ANXIETY; Start 08/11/17 at 18:45 Divalproex Sodium (Depakote Sprinkles) 500 mg TID PO Last administered on 19:22; Start 08/14/17 at 21:00 Hydralazine HCl (Apresoline) 10 mg TID PO Last administered on 08/22/17 14:19 ; Start 08/16/17 at 21:00; Stop 08/22/17 at 14:53; Status DC Furosemide (Lasix) 40 mg DAILY PO Last administered on 08/23/17 08:39; Start 08/18/17 at 09:00 Potassium Chloride (Klor-Con) 20 meq BID PO Last administered on 08/23/17 19: 22; Start 08/17/17 at 21:00 Buspirone HCl (Buspar) 5 mg 1300,1700 PO Last administered on 08/23/17 16:49; Start 08/18/17 at 13:00 Buspirone HCl (Buspar) 10 mg DAILY PO Last administered on 08/23/17 08:39; Start 08/18/17 at 09:00 Trazodone HCl (Desyrel) 150 mg QHS PO Last administered on 08/23/17 19:22; Start 08/21/17 at 21:00 Hydralazine HCl (Apresoline) 25 mg TID PO Last administered on 08/23/17 19:22 ; Start 08/22/17 at 15:15 Active Scripts Active Reported Thiamine Hcl 100 Mg Tablet 100 Mg PO DAILY Olanzapine 5 Mg Tablet 1 Tab PO QHS Folic Acid 1 Mg Tablet 1 Tab PO DAILY Lovenox (Enoxaparin Sodium) 40 Mg/0.4 Ml Disp.syrin 0.4 Ml SQ DAILY Lisinopril 40 Mg Tablet 20 Mg PO BID Novolog Flexpen (Insulin Aspart) 100 Unit/1 Ml Insuln.pen 0-7 Unit SQ TIDAC Novolog Flexpen (Insulin Aspart) 100 Unit/1 Ml Insuln.pen 15 Unit SQ TIDAC Metoprolol Tartrate 25 Mg Tablet 100 Mg PO BID Lantus Solostar (Insulin Glargine,Hum.rec.anlog) 100 Unit/1 Ml Insuln.pen 30 Unit SQ BID Gabapentin 100 Mg Capsule 100 Mg PO TID I have reviewed the current psychotropics carefully including drug interactions. Risk benefit ratio favors no change other than as noted in my dictated progress note. Diagnosis: Problems: (1) Anxiety disorder (2) Impulse control disorder (3) Bipolar affective disorder, mixed (4) Dementia, vascular, with delusions (5) Dementia with behavioral disturbance LIZ DIANE MD Aug 23, 2017 22:15
--- NOTE | 2017-08-23 23:32 | PN ---
DATE: 08/21/2017 This late entry 08/21/2017 covers elements not covered in my initial note 08/21/2017. Met with the patient in the evening of 08/21/2017. The patient slept just 2-3/4 hours previous evening, but otherwise sexually less inappropriate. REVIEW OF SYSTEMS: Ambulation impaired with walker. No CV, , pulmonary, eye system symptoms on review. MENTAL STATUS EXAM: Oriented to himself and situation. Speech has some latency, coherent. Abstraction fair, computation impaired, language function intact, attention span short. Mood and affect, somewhat anxious, at times labile. LABORATORY DATA: Reviewed. IMPRESSION: Major neurocognitive disorder, Alzheimer, vascular with depression, delusions, major depressive disorder with psychotic features, bipolar 1 disorder, mixed PLAN: We will use hydroxyzine p.r.n. for insomnia. Continue rest of psychotropics. MAN Newton DIANE MD DR: MATILDA/james JOB#: [id number] / [id number]
[2017-08-24 06:13] VITALS: BP 130/52
[2017-08-24] MEDS: INSULIN ASPART 300 UNITS/3 ML INSULN.PEN SQ SCH ×6 (10:01→18:45)
[2017-08-24] MEDS: INSULIN DETEMIR 300 UNITS/3 ML INSULN.PEN. SQ SCH ×2 (10:11→21:02)
[2017-08-24] MEDS: FOLIC ACID 1 MG TABLET PO SCH (10:12)
[2017-08-24] MEDS: POTASSIUM CHLORIDE 20 MEQ TABLET.ER. PO SCH ×2 (10:12→20:59)
[2017-08-24] MEDS: NYSTATIN TOPICAL POWDER 15GM BOTTLE. TP SCH ×2 (10:12→21:00)
[2017-08-24] MEDS: DOCUSATE CALCIUM 240 MG CAPSULE PO SCH (10:14)
[2017-08-24] MEDS: THIAMINE 100 MG TABLET. PO SCH (10:14)
[2017-08-24] MEDS: FUROSEMIDE 40 MG TABLET PO SCH (10:14)
[2017-08-24] MEDS: GABAPENTIN 100 MG CAPSULE. PO SCH ×3 (10:14→20:59)
[2017-08-24] MEDS: busPIRone 10 MG TABLET. PO SCH (10:15)
[2017-08-24] MEDS: DIVALPROEX 125 MG CAP.SPRINK PO SCH ×3 (10:15→20:58)
[2017-08-24] MEDS: medroxyPROGESTERone 5 MG TABLET PO SCH (10:15)
[2017-08-24] MEDS: hydrALAZINE 25 MG TABLET PO SCH ×3 (11:45→23:53)
[2017-08-24] MEDS: LISINOPRIL 20 MG TABLET PO SCH ×3 (11:46→23:54)
[2017-08-24] MEDS: METOPROLOL TART IMMED RELEASE 50 MG TABLET PO SCH ×3 (11:46→23:52)
[2017-08-24 12:18] VITALS: BP 149/70
[2017-08-24] MEDS: busPIRone 5 MG TABLET. PO SCH ×2 (13:07→18:46)
[2017-08-24 15:55] VITALS: BP 148/75
[2017-08-24 20:57] VITALS: BP 108/77
[2017-08-24] MEDS: QUEtiapine 50 MG TABLET. PO SCH (20:58)
[2017-08-24] MEDS: MELATONIN 3 MG TABLET PO SCH (20:59)
[2017-08-24] MEDS: traZODone 150 MG TABLET. PO SCH (20:59)
--- NOTE | 2017-08-24 21:13 | PDOC ---
Exam Note: Adriano Note: Please also refer to the separate dictated note~for this date of service dictated separately.~Patient seen individually. Discussed the patient with Nursing staff reviewed the chart.~Reviewed interim history and current functioning. Reviewed vital signs,~Labs/ Radiology~and current medications noted below. Continue current treatment with the changes noted in the dictated addendum note Assessment: Vital Signs: Vital Signs Date Time Temp Pulse Resp B/P (MAP) Pulse Ox O2 Delivery O2 Flow Rate FiO2 08/24/17 20:57 64 108/77 (87) 08/24/17 15:55 97.6 20 96 08/22/17 16:31 Room Air I&O Intake and Output 08/24/17 07:00 Intake Total 1560 ml Balance 1560 ml Intake Oral 1560 ml # Voids 2 # Bowel Movements 1 Labs: Laboratory Tests Test 08/24/17 07:09 08/24/17 11:12 08/24/17 12:05 08/24/17 16:22 Glucose (Fingerstick) 161 mg/dL (70-99) H 103 mg/dL (70-99) H 63 mg/dL (70-99) L 189 mg/dL (70-99) H Test 08/24/17 19:19 08/24/17 20:54 Glucose (Fingerstick) 287 mg/dL (70-99) H 263 mg/dL (70-99) H Current Medications: Meds: Current Medications Olanzapine (ZyPREXA) 5 mg QHS PO Last administered on 07/28/17at 20:43; Start at 21:00; Stop 07/29/17 at 18:42; Status DC Gabapentin (Neurontin) 100 mg TID PO Last administered on 08/24/17at 20:59; Start 07/28/17 at 21:00 Metoprolol Tartrate (Lopressor) 100 mg BID PO Last administered on 08/24/17at 12 :23; Start 07/28/17 at 21:00 Insulin Detemir (Levemir) 30 units BID SQ Last administered on 08/24/17at 21:02 ; Start 07/28/17 at 21:00 Lisinopril (Prinivil) 20 mg BID PO Last administered on 08/24/17at 12:23; Start 07/28/17 at 21:00 Insulin Aspart (NovoLOG) 0-7 UNITS TIDAC SQ Last administered on 08/24/17 18: 45; Start 07/29/17 at 11:30 Dextrose 12.5 gm PRN Q15MIN PRN IV SEE COMMENTS; Start 07/29/17 at 09:15 Nicotine Polacrilex (Nicorette Gum) 2 mg PRN Q2HR PRN BC SMOKING CESSATION Last administered on 08/07/17at 13:47; Start 07/29/17 at 10:45 Folic Acid (Folic Acid) 1 mg DAILY PO Last administered on 08/24/17at 10:12; Start 07/30/17 at 09:00 Insulin Aspart (NovoLOG) 15 units TIDAC SQ Last administered on 08/24/17 18:45 ; Start 07/29/17 at 16:30 Thiamine HCl (Vitamin B-1) 100 mg DAILY PO Last administered on 08/24/17 10:14 ; Start 07/30/17 at 09:00 Quetiapine Fumarate (SEROquel) 50 mg HS PO Last administered on 08/24/17at 20:58 ; Start 07/29/17 at 21:00 Medroxyprogesterone Acetate (Provera) 2.5 mg DAILY PO Last administered on 08/01at 07:25; Start 07/30/17 at 09:00; Stop 08/02/17 at 08:59; Status DC Olanzapine (ZyPREXA ZYDIS) 2.5 mg PRN Q2HR PRN PO PSYCHOSIS Last administered on 08/05/17at 11:32; Start 07/29/17 at 18:45 Divalproex Sodium (Depakote Sprinkles) 125 mg TID PO Last administered on at 13:11; Start 07/30/17 at 14:00; Stop 08/03/17 at 18:52; Status DC Medroxyprogesterone Acetate (Provera) 5 mg DAILY PO Last administered on at 07:54; Start 08/02/17 at 09:00; Stop 08/02/17 at 21:43; Status DC Trazodone HCl (Desyrel) 50 mg QHS PO Last administered on 08/09/17at 20:43; Start 07/31/17 at 21:00; Stop 08/10/17 at 18:36; Status DC Trazodone HCl (Desyrel) 50 mg PRN QHS PRN PO INSOMNIA Last administered on 22:09; Start 07/31/17 at 18:15; Stop 08/10/17 at 18:37; Status DC Magnesium Hydroxide (Milk Of Magnesia) 2,400 mg PRN DAILY PRN PO CONSTIPATION Last administered on 08/06/17at 18:26; Start 08/02/17 at 19:45 Medroxyprogesterone Acetate (Provera) 7.5 mg DAILY PO Last administered on 08/06at 08:48; Start 08/03/17 at 09:00; Stop 08/07/17 at 08:59; Status DC Divalproex Sodium (Depakote Sprinkles) 250 mg TID PO Last administered on 08:48; Start 08/03/17 at 21:00; Stop 08/06/17 at 10:54; Status DC Melatonin 3 mg QHS PO Last administered on 08/24/17at 20:59; Start 08/03/17 at 21:00 Nystatin (Nystop) 1 danielle BID TP Last administered on 08/24/17at 21:00; Start at 21:00 Medroxyprogesterone Acetate (Provera) 10 mg DAILY PO Last administered on 10:15; Start 08/07/17 at 09:00 Buspirone HCl (Buspar) 5 mg 0900,1300,1700 PO Last administered on 08/17/17 17: 18; Start 08/06/17 at 09:00; Stop 08/17/17 at 18:32; Status DC Divalproex Sodium (Depakote Sprinkles) 375 mg TID PO Last administered on 12:52; Start 08/06/17 at 14:00; Stop 08/14/17 at 18:27; Status DC Docusate Calcium (Surfak) 240 mg DAILY PO Last administered on 08/24/17at 10:14 ; Start 08/07/17 at 09:00 Magnesium Citrate (Citroma) 296 ml PRN DAILY PRN PO CONSTIPATION Last administered on 08/17/17at 13:32; Start 08/07/17 at 15:30 Trazodone HCl (Desyrel) 100 mg PRN QHS PRN PO INSOMNIA Last administered on at 02:00; Start 08/10/17 at 18:45 Trazodone HCl (Desyrel) 100 mg QHS PO Last administered on 08/20/17at 21:13; Start 08/10/17 at 21:00; Stop 08/21/17 at 18:27; Status DC Hydroxyzine Pamoate (Vistaril) 50 mg PRN Q2HR PRN PO ANXIETY; Start 08/11/17 at 18:45 Divalproex Sodium (Depakote Sprinkles) 500 mg TID PO Last administered on at 20:58; Start 08/14/17 at 21:00 Hydralazine HCl (Apresoline) 10 mg TID PO Last administered on 08/22/17 14:19 ; Start 08/16/17 at 21:00; Stop 08/22/17 at 14:53; Status DC Furosemide (Lasix) 40 mg DAILY PO Last administered on 08/24/17at 10:14; Start 08/18/17 at 09:00 Potassium Chloride (Klor-Con) 20 meq BID PO Last administered on 08/24/17at 20: 59; Start 08/17/17 at 21:00 Buspirone HCl (Buspar) 5 mg 1300,1700 PO Last administered on 08/24/17at 18:46; Start 08/18/17 at 13:00 Buspirone HCl (Buspar) 10 mg DAILY PO Last administered on 08/24/17 10:15; Start 08/18/17 at 09:00 Trazodone HCl (Desyrel) 150 mg QHS PO Last administered on 08/24/17 20:59; Start 08/21/17 at 21:00 Hydralazine HCl (Apresoline) 25 mg TID PO Last administered on 08/24/17at 13:07 ; Start 08/22/17 at 15:15 Active Scripts Active Reported Thiamine Hcl 100 Mg Tablet 100 Mg PO DAILY Olanzapine 5 Mg Tablet 1 Tab PO QHS Folic Acid 1 Mg Tablet 1 Tab PO DAILY Lovenox (Enoxaparin Sodium) 40 Mg/0.4 Ml Disp.syrin 0.4 Ml SQ DAILY Lisinopril 40 Mg Tablet 20 Mg PO BID Novolog Flexpen (Insulin Aspart) 100 Unit/1 Ml Insuln.pen 0-7 Unit SQ TIDAC Novolog Flexpen (Insulin Aspart) 100 Unit/1 Ml Insuln.pen 15 Unit SQ TIDAC Metoprolol Tartrate 25 Mg Tablet 100 Mg PO BID Lantus Solostar (Insulin Glargine,Hum.rec.anlog) 100 Unit/1 Ml Insuln.pen 30 Unit SQ BID Gabapentin 100 Mg Capsule 100 Mg PO TID I have reviewed the current psychotropics carefully including drug interactions. Risk benefit ratio favors no change other than as noted in my dictated progress note. Diagnosis: Problems: (1) Anxiety disorder (2) Impulse control disorder (3) Bipolar affective disorder, mixed (4) Dementia, vascular, with delusions (5) Dementia with behavioral disturbance LIZ DIANE MD Aug 24, 2017 21:13
--- NOTE | 2017-08-25 03:24 | PN ---
DATE: 08/22/2017 This is a late entry for 08/22/2017 covers elements not covered in my initial note for 08/22/2017. SUBJECTIVE: I met with the patient in the evening of 08/22/2017. The patient slept just 2-3/4 hours previous evening, somewhat withdrawn, tired during the day as a consequence of this. REVIEW OF SYSTEMS: Ambulation impaired with walker. No CV, , pulmonary, eye system symptoms on review. MENTAL STATUS EXAM: Oriented to himself, situation. Speech moderate latency, often responses monosyllabic. Abstraction fair, computation impaired, language function intact, attention span short. Mood and affect somewhat withdrawn. LABORATORY DATA: Reviewed. IMPRESSION: Major neurocognitive disorder, Alzheimer, vascular with delusion, depression, bipolar 1 disorder, mixed with psychotic features. Rest unchanged. PLAN: Continue current psychotropics. Use hydroxyzine for insomnia then make further adjustments as clinically indicated. MAN Newton DIANE MD DR: MATILDA/james JOB#: [id number] / [id number]
--- NOTE | 2017-08-25 04:32 | PN ---
DATE: 08/23/2017 This is a late entry for 08/23, covers elements not covered in my initial note of 08/23. SUBJECTIVE: I met with the patient in the evening of 08/23. Overall, the patient is compliant with medications and assessment, still makes some occasional sexual remarks to staff and I addressed this with him individually. REVIEW OF SYSTEMS: Ambulation impaired with walker. No CV, , pulmonary, eye, ENT system symptoms on review. MENTAL STATUS EXAMINATION: Oriented to himself and situation. Speech moderate latency, coherent. Abstraction fair. Computation impaired. Language function intact. Attention span short. Mood and affect remain somewhat withdrawn. LABORATORY DATA: Reviewed. IMPRESSION: Bipolar 1 disorder, mixed with psychotic features; major neurocognitive disorder, early Alzheimer's, vascular with depression and delusion. PLAN: Continue psychotropics mentioned in my initial note. Valproic acid level therapeutic at 58. MAN Newton DIANE MD DR: MATILDA/james JOB#: [id number] / [id number]
[2017-08-25 07:15] VITALS: BP 161/80
[2017-08-25] MEDS: INSULIN ASPART 300 UNITS/3 ML INSULN.PEN SQ SCH ×6 (07:30→16:47)
[2017-08-25] MEDS: INSULIN DETEMIR 300 UNITS/3 ML INSULN.PEN. SQ SCH ×2 (08:14→22:15)
[2017-08-25] MEDS: hydrALAZINE 25 MG TABLET PO SCH ×3 (08:15→19:33)
[2017-08-25] MEDS: medroxyPROGESTERone 5 MG TABLET PO SCH (08:15)
[2017-08-25] MEDS: DIVALPROEX 125 MG CAP.SPRINK PO SCH ×3 (08:15→19:33)
[2017-08-25] MEDS: METOPROLOL TART IMMED RELEASE 50 MG TABLET PO SCH ×2 (08:15→19:34)
[2017-08-25] MEDS: LISINOPRIL 20 MG TABLET PO SCH ×2 (08:16→19:34)
[2017-08-25] MEDS: busPIRone 10 MG TABLET. PO SCH (08:16)
[2017-08-25] MEDS: DOCUSATE CALCIUM 240 MG CAPSULE PO SCH (08:16)
[2017-08-25] MEDS: GABAPENTIN 100 MG CAPSULE. PO SCH ×3 (08:16→19:32)
[2017-08-25] MEDS: FOLIC ACID 1 MG TABLET PO SCH (08:16)
[2017-08-25] MEDS: POTASSIUM CHLORIDE 20 MEQ TABLET.ER. PO SCH ×2 (08:16→19:33)
[2017-08-25] MEDS: NYSTATIN TOPICAL POWDER 15GM BOTTLE. TP SCH ×2 (08:17→22:15)
[2017-08-25] MEDS: FUROSEMIDE 40 MG TABLET PO SCH (08:17)
[2017-08-25] MEDS: THIAMINE 100 MG TABLET. PO SCH (08:17)
[2017-08-25 09:11] LABS: BASO % 1 % (0-3); EOS # 0.1 x10^3/uL (0.0-0.7); EOS % 2 % (0-3); HEMATOCRIT 41.7 % (39.0-53.0); HEMOGLOBIN 13.8 g/dL (13.0-17.5); LYMPH # 1.2 x10^3/uL (1.0-4.8); LYMPH % 15 % (24-48); MEAN CORPUSCULAR HEMOGLOBIN 31 pg (25-35); MEAN CORPUSCULAR HGB CONC 33 g/dL (31-37); MEAN CORPUSCULAR VOLUME 93 fL (79-100); MONO # 0.7 x10^3/uL (0.0-1.1); MONO % 9 % (0-9); NEUT # 5.8 x10^3uL (1.8-7.7); NEUT % 74 % (31-73); PLATELET COUNT 131 x10^3/uL (140-400); RED CELL DISTRIBUTION WIDTH 13.9 % (11.5-14.5); WHITE BLOOD COUNT 7.8 x10^3/uL (4.0-11.0)
[2017-08-25 09:27] LABS: ALBUMIN 2.8 g/dL (3.4-5.0); ALBUMIN/GLOBULIN RATIO 0.8 (1.0-1.7); CALCIUM 8.2 mg/dL (8.5-10.1); GFR 73.2; POTASSIUM 4.2 mmol/L (3.5-5.1); TOTAL BILIRUBIN 0.4 mg/dL (0.2-1.0); TOTAL PROTEIN 6.3 g/dL (6.4-8.2)
[2017-08-25 13:13] VITALS: BP 154/87
[2017-08-25] MEDS: busPIRone 5 MG TABLET. PO SCH ×2 (13:14→16:48)
[2017-08-25 15:47] VITALS: BP 159/81
[2017-08-25] MEDS: QUEtiapine 50 MG TABLET. PO SCH (19:32)
[2017-08-25] MEDS: traZODone 150 MG TABLET. PO SCH (19:32)
[2017-08-25] MEDS: MELATONIN 3 MG TABLET PO SCH (19:34)
--- NOTE | 2017-08-25 21:01 | PDOC ---
Exam Note: Adriano Note: Please also refer to the separate dictated note~for this date of service dictated separately.~Patient seen individually. Discussed the patient with Nursing staff reviewed the chart.~Reviewed interim history and current functioning. Reviewed vital signs,~Labs/ Radiology~and current medications noted below. Continue current treatment with the changes noted in the dictated addendum note Assessment: Vital Signs: Vital Signs Date Time Temp Pulse Resp B/P (MAP) Pulse Ox O2 Delivery O2 Flow Rate FiO2 08/25/17 19:34 59 159/81 08/25/17 15:47 97.8 20 98 08/22/17 16:31 Room Air I&O Intake and Output 08/25/17 07:00 Intake Total 1440 ml Balance 1440 ml Intake Oral 1440 ml # Voids 2 Labs: Laboratory Tests Test 08/25/17 07:19 08/25/17 08:59 08/25/17 11:27 08/25/17 16:27 Glucose (Fingerstick) 135 mg/dL (70-99) H 177 mg/dL (70-99) H 168 mg/dL (70-99) H White Blood Count 7.8 x10^3/uL (4.0-11.0) Red Blood Count 4.50 x10^6/uL (4.30-5.70) Hemoglobin 13.8 g/dL (13.0-17.5) Hematocrit 41.7 % (39.0-53.0) Mean Corpuscular Volume 93 fL (79-100) Mean Corpuscular Hemoglobin 31 pg (25-35) Mean Corpuscular Hemoglobin Concent 33 g/dL (31-37) Red Cell Distribution Width 13.9 % (11.5-14.5) Platelet Count 131 x10^3/uL (140-400) L Neutrophils (%) (Auto) 74 % (31-73) H Lymphocytes (%) (Auto) 15 % (24-48) L Monocytes (%) (Auto) 9 % (0-9) Eosinophils (%) (Auto) 2 % (0-3) Basophils (%) (Auto) 1 % (0-3) Neutrophils # (Auto) 5.8 x10^3uL (1.8-7.7) Lymphocytes # (Auto) 1.2 x10^3/uL (1.0-4.8) Monocytes # (Auto) 0.7 x10^3/uL (0.0-1.1) Eosinophils # (Auto) 0.1 x10^3/uL (0.0-0.7) Basophils # (Auto) 0.0 x10^3/uL (0.0-0.2) Sodium Level 142 mmol/L (136-145) Potassium Level 4.2 mmol/L (3.5-5.1) Chloride Level 107 mmol/L (98-107) Carbon Dioxide Level 29 mmol/L (21-32) Anion Gap 6 (6-14) Blood Urea Nitrogen 17 mg/dL (8-26) Creatinine 1.0 mg/dL (0.7-1.3) Estimated GFR (Cockcroft-Gault) 73.2 BUN/Creatinine Ratio 17 (6-20) Glucose Level 148 mg/dL (70-99) H Calcium Level 8.2 mg/dL (8.5-10.1) L Magnesium Level 2.0 mg/dL (1.8-2.4) Total Bilirubin 0.4 mg/dL (0.2-1.0) Aspartate Amino Transferase (AST) 10 U/L (15-37) L Alanine Aminotransferase (ALT) 20 U/L (16-63) Alkaline Phosphatase 55 U/L (46-116) Total Protein 6.3 g/dL (6.4-8.2) L Albumin 2.8 g/dL (3.4-5.0) L Albumin/Globulin Ratio 0.8 (1.0-1.7) L Test 08/25/17 19:08 Glucose (Fingerstick) 179 mg/dL (70-99) H Current Medications: Meds: Current Medications Olanzapine (ZyPREXA) 5 mg QHS PO Last administered on 07/28/17at 20:43; Start at 21:00; Stop 07/29/17 at 18:42; Status DC Gabapentin (Neurontin) 100 mg TID PO Last administered on 08/25/17at 19:32; Start 07/28/17 at 21:00 Metoprolol Tartrate (Lopressor) 100 mg BID PO Last administered on 08/25/17at 19 :34; Start 07/28/17 at 21:00 Insulin Detemir (Levemir) 30 units BID SQ Last administered on 08/25/17 08:14 ; Start 07/28/17 at 21:00 Lisinopril (Prinivil) 20 mg BID PO Last administered on 08/25/17at 19:34; Start 07/28/17 at 21:00 Insulin Aspart (NovoLOG) 0-7 UNITS TIDAC SQ Last administered on 08/25/17at 16: 47; Start 07/29/17 at 11:30 Dextrose 12.5 gm PRN Q15MIN PRN IV SEE COMMENTS; Start 07/29/17 at 09:15 Nicotine Polacrilex (Nicorette Gum) 2 mg PRN Q2HR PRN BC SMOKING CESSATION Last administered on 08/07/17 13:47; Start 07/29/17 at 10:45 Folic Acid (Folic Acid) 1 mg DAILY PO Last administered on 08/25/17 08:16; Start 07/30/17 at 09:00 Insulin Aspart (NovoLOG) 15 units TIDAC SQ Last administered on 08/25/17at 16:47 ; Start 07/29/17 at 16:30 Thiamine HCl (Vitamin B-1) 100 mg DAILY PO Last administered on 08/25/17 08:17 ; Start 07/30/17 at 09:00 Quetiapine Fumarate (SEROquel) 50 mg HS PO Last administered on 08/25/17 19:32 ; Start 07/29/17 at 21:00 Medroxyprogesterone Acetate (Provera) 2.5 mg DAILY PO Last administered on 08/01 07:25; Start 07/30/17 at 09:00; Stop 08/02/17 at 08:59; Status DC Olanzapine (ZyPREXA ZYDIS) 2.5 mg PRN Q2HR PRN PO PSYCHOSIS Last administered on 08/05/17 11:32; Start 07/29/17 at 18:45 Divalproex Sodium (Depakote Sprinkles) 125 mg TID PO Last administered on 13:11; Start 07/30/17 at 14:00; Stop 08/03/17 at 18:52; Status DC Medroxyprogesterone Acetate (Provera) 5 mg DAILY PO Last administered on at 07:54; Start 08/02/17 at 09:00; Stop 08/02/17 at 21:43; Status DC Trazodone HCl (Desyrel) 50 mg QHS PO Last administered on 08/09/17at 20:43; Start 07/31/17 at 21:00; Stop 08/10/17 at 18:36; Status DC Trazodone HCl (Desyrel) 50 mg PRN QHS PRN PO INSOMNIA Last administered on 22:09; Start 07/31/17 at 18:15; Stop 08/10/17 at 18:37; Status DC Magnesium Hydroxide (Milk Of Magnesia) 2,400 mg PRN DAILY PRN PO CONSTIPATION Last administered on 08/06/17 18:26; Start 08/02/17 at 19:45 Medroxyprogesterone Acetate (Provera) 7.5 mg DAILY PO Last administered on 08/06 08:48; Start 08/03/17 at 09:00; Stop 08/07/17 at 08:59; Status DC Divalproex Sodium (Depakote Sprinkles) 250 mg TID PO Last administered on at 08:48; Start 08/03/17 at 21:00; Stop 08/06/17 at 10:54; Status DC Melatonin 3 mg QHS PO Last administered on 08/25/17at 19:34; Start 08/03/17 at 21:00 Nystatin (Nystop) 1 danielle BID TP Last administered on 08/25/17at 08:17; Start at 21:00 Medroxyprogesterone Acetate (Provera) 10 mg DAILY PO Last administered on at 08:15; Start 08/07/17 at 09:00 Buspirone HCl (Buspar) 5 mg 0900,1300,1700 PO Last administered on 08/17/17at 17: 18; Start 08/06/17 at 09:00; Stop 08/17/17 at 18:32; Status DC Divalproex Sodium (Depakote Sprinkles) 375 mg TID PO Last administered on at 12:52; Start 08/06/17 at 14:00; Stop 08/14/17 at 18:27; Status DC Docusate Calcium (Surfak) 240 mg DAILY PO Last administered on 08/25/17 08:16 ; Start 08/07/17 at 09:00 Magnesium Citrate (Citroma) 296 ml PRN DAILY PRN PO CONSTIPATION Last administered on 08/17/17 13:32; Start 08/07/17 at 15:30 Trazodone HCl (Desyrel) 100 mg PRN QHS PRN PO INSOMNIA Last administered on 02:00; Start 08/10/17 at 18:45 Trazodone HCl (Desyrel) 100 mg QHS PO Last administered on 08/20/17 21:13; Start 08/10/17 at 21:00; Stop 08/21/17 at 18:27; Status DC Hydroxyzine Pamoate (Vistaril) 50 mg PRN Q2HR PRN PO ANXIETY; Start 08/11/17 at 18:45 Divalproex Sodium (Depakote Sprinkles) 500 mg TID PO Last administered on 19:33; Start 08/14/17 at 21:00 Hydralazine HCl (Apresoline) 10 mg TID PO Last administered on 08/22/17 14:19 ; Start 08/16/17 at 21:00; Stop 08/22/17 at 14:53; Status DC Furosemide (Lasix) 40 mg DAILY PO Last administered on 08/25/17 08:17; Start 08/18/17 at 09:00 Potassium Chloride (Klor-Con) 20 meq BID PO Last administered on 08/25/17 19: 33; Start 08/17/17 at 21:00 Buspirone HCl (Buspar) 5 mg 1300,1700 PO Last administered on 08/25/17at 16:48; Start 08/18/17 at 13:00 Buspirone HCl (Buspar) 10 mg DAILY PO Last administered on 08/25/17 08:16; Start 08/18/17 at 09:00 Trazodone HCl (Desyrel) 150 mg QHS PO Last administered on 08/25/17 19:32; Start 08/21/17 at 21:00 Hydralazine HCl (Apresoline) 25 mg TID PO Last administered on 08/25/17 19:33 ; Start 08/22/17 at 15:15 Active Scripts Active Reported Thiamine Hcl 100 Mg Tablet 100 Mg PO DAILY Olanzapine 5 Mg Tablet 1 Tab PO QHS Folic Acid 1 Mg Tablet 1 Tab PO DAILY Lovenox (Enoxaparin Sodium) 40 Mg/0.4 Ml Disp.syrin 0.4 Ml SQ DAILY Lisinopril 40 Mg Tablet 20 Mg PO BID Novolog Flexpen (Insulin Aspart) 100 Unit/1 Ml Insuln.pen 0-7 Unit SQ TIDAC Novolog Flexpen (Insulin Aspart) 100 Unit/1 Ml Insuln.pen 15 Unit SQ TIDAC Metoprolol Tartrate 25 Mg Tablet 100 Mg PO BID Lantus Solostar (Insulin Glargine,Hum.rec.anlog) 100 Unit/1 Ml Insuln.pen 30 Unit SQ BID Gabapentin 100 Mg Capsule 100 Mg PO TID I have reviewed the current psychotropics carefully including drug interactions. Risk benefit ratio favors no change other than as noted in my dictated progress note. Diagnosis: Problems: (1) Anxiety disorder (2) Impulse control disorder (3) Bipolar affective disorder, mixed (4) Dementia, vascular, with delusions (5) Dementia with behavioral disturbance LIZ DIANE MD Aug 25, 2017 21:01
--- NOTE | 2017-08-25 23:09 | PN ---
DATE: 08/24/2017 This late entry date of service 08/24/2017 covers elements not covered in my initial note of 08/24/2017. I met with the patient evening of 08/24/2017. SUBJECTIVE: The patient is somewhat withdrawn, somewhat inappropriate in sexual comments the previous night, compliant with medications. REVIEW OF SYSTEMS: Ambulation impaired with walker. No CV, , pulmonary, eye system symptoms on review. MENTAL STATUS EXAM: Oriented to himself and situation. Speech moderate latency, often responses monosyllabic. Abstraction fair, computation impaired, language function intact. Mood and affect somewhat labile at times. IMPRESSION: Unchanged from initial note. PLAN: Continue current psychotropics. Discussed with social service staff regarding placement. MAN Newton DIANE MD DR: MATILDA/james JOB#: [id number] / [id number]
[2017-08-26 06:20] VITALS: BP 164/98
[2017-08-26] MEDS: INSULIN ASPART 300 UNITS/3 ML INSULN.PEN SQ SCH (07:30)
[2017-08-26] MEDS: medroxyPROGESTERone 5 MG TABLET PO SCH (07:44)
[2017-08-26] MEDS: DOCUSATE CALCIUM 240 MG CAPSULE PO SCH (07:44)
[2017-08-26] MEDS: DIVALPROEX 125 MG CAP.SPRINK PO SCH ×2 (07:44→13:11)
[2017-08-26] MEDS: METOPROLOL TART IMMED RELEASE 50 MG TABLET PO SCH (07:44)
[2017-08-26] MEDS: busPIRone 10 MG TABLET. PO SCH (07:45)
[2017-08-26] MEDS: FOLIC ACID 1 MG TABLET PO SCH (07:45)
[2017-08-26] MEDS: hydrALAZINE 25 MG TABLET PO SCH ×2 (07:45→13:12)
[2017-08-26] MEDS: FUROSEMIDE 40 MG TABLET PO SCH (07:45)
[2017-08-26] MEDS: THIAMINE 100 MG TABLET. PO SCH (07:45)
[2017-08-26] MEDS: GABAPENTIN 100 MG CAPSULE. PO SCH ×2 (07:45→13:12)
[2017-08-26] MEDS: POTASSIUM CHLORIDE 20 MEQ TABLET.ER. PO SCH (07:46)
[2017-08-26] MEDS: LISINOPRIL 20 MG TABLET PO SCH (07:46)
[2017-08-26] MEDS: INSULIN DETEMIR 300 UNITS/3 ML INSULN.PEN. SQ SCH (07:48)
[2017-08-26] MEDS: INSULIN LISPRO 300 UNITS/3 ML INSULN.PEN. SQ SCH ×5 (07:48→16:49)
[2017-08-26] MEDS: NYSTATIN TOPICAL POWDER 15GM BOTTLE. TP SCH (07:49)
[2017-08-26] MEDS ORDERED: INSU100V13 SQ (09:56)
[2017-08-26] MEDS ORDERED: METO50TA6 PO (09:56)
[2017-08-26] MEDS ORDERED: LISI-334 PO (09:56)
[2017-08-26] MEDS ORDERED: INSU100I11 SQ (09:56)
[2017-08-26] MEDS ORDERED: DIVA125C PO (10:06)
[2017-08-26] MEDS ORDERED: DOCU240C30 PO (10:07)
[2017-08-26] MEDS ORDERED: FURO40TA4 PO (10:08)
[2017-08-26] MEDS ORDERED: MAGN296S4 PO (10:09)
[2017-08-26] MEDS ORDERED: MELA3TAB2 PO (10:10)
[2017-08-26] MEDS ORDERED: MAGN2400 PO (10:10)
[2017-08-26] MEDS ORDERED: NICO2GUM42 BC (10:11)
[2017-08-26] MEDS ORDERED: NYST60PO TP (10:13)
[2017-08-26] MEDS ORDERED: POTA20TA4 PO (10:14)
[2017-08-26] MEDS ORDERED: QUET50TA5 PO (10:16)
[2017-08-26] MEDS ORDERED: BUSP5TAB PO (10:17)
[2017-08-26] MEDS ORDERED: BUSP10TA PO (10:17)
[2017-08-26] MEDS ORDERED: HYDR-2868 PO (10:18)
[2017-08-26] MEDS ORDERED: HYDR50TA PO (10:19)
[2017-08-26] MEDS ORDERED: MEDR10TA3 PO (10:21)
[2017-08-26] MEDS ORDERED: TRAZ150T49 PO (10:22)
[2017-08-26] MEDS ORDERED: TRAZ-90 PO (10:22)
[2017-08-26] MEDS ORDERED: INSU100C SQ (10:23)
[2017-08-26] MEDS: busPIRone 5 MG TABLET. PO SCH ×2 (13:12→16:49)
[2017-08-26 16:28] VITALS: BP 162/73
--- NOTE | 2017-08-26 21:06 | PDOC ---
Exam Note: Adriano Note: Please also refer to the separate dictated note~for this date of service dictated separately.~Patient seen individually. Discussed the patient with Nursing staff reviewed the chart.~Reviewed interim history and current functioning. Reviewed vital signs,~Labs/ Radiology~and current medications noted below. Continue current treatment with the changes noted in the dictated addendum note Assessment: Vital Signs: Vital Signs Date Time Temp Pulse Resp B/P (MAP) Pulse Ox O2 Delivery O2 Flow Rate FiO2 08/26/17 16:28 97.7 63 18 162/73 (102) 97 08/22/17 16:31 Room Air I&O Intake and Output 08/26/17 07:00 Intake Total 1680 ml Balance 1680 ml Intake Oral 1680 ml Labs: Laboratory Tests Test 08/26/17 07:12 08/26/17 11:24 08/26/17 16:25 Glucose (Fingerstick) 109 mg/dL (70-99) H 140 mg/dL (70-99) H 177 mg/dL (70-99) H Current Medications: Meds: Current Medications Olanzapine (ZyPREXA) 5 mg QHS PO Last administered on 07/28/17at 20:43; Start at 21:00; Stop 07/29/17 at 18:42; Status DC Gabapentin (Neurontin) 100 mg TID PO Last administered on 08/26/17at 13:12; Start 07/28/17 at 21:00; Stop 08/26/17 at 18:17; Status DC Metoprolol Tartrate (Lopressor) 100 mg BID PO Last administered on 08/26/17at 07 :44; Start 07/28/17 at 21:00; Stop 08/26/17 at 18:17; Status DC Insulin Detemir (Levemir) 30 units BID SQ Last administered on 08/26/17at 07:48 ; Start 07/28/17 at 21:00; Stop 08/26/17 at 18:17; Status DC Lisinopril (Prinivil) 20 mg BID PO Last administered on 08/26/17at 07:46; Start 07/28/17 at 21:00; Stop 08/26/17 at 18:17; Status DC Insulin Aspart (NovoLOG) 0-7 UNITS TIDAC SQ Last administered on 08/25/17at 16: 47; Start 07/29/17 at 11:30; Stop 08/26/17 at 07:47; Status DC Dextrose 12.5 gm PRN Q15MIN PRN IV SEE COMMENTS; Start 07/29/17 at 09:15; Stop 08/26/17 at 18:17; Status DC Nicotine Polacrilex (Nicorette Gum) 2 mg PRN Q2HR PRN BC SMOKING CESSATION Last administered on 08/07/17at 13:47; Start 07/29/17 at 10:45; Stop 08/26/17 at 18:17; Status DC Folic Acid (Folic Acid) 1 mg DAILY PO Last administered on 08/26/17at 07:45; Start 07/30/17 at 09:00; Stop 08/26/17 at 18:17; Status DC Insulin Aspart (NovoLOG) 15 units TIDAC SQ Last administered on 08/25/17at 16:47 ; Start 07/29/17 at 16:30; Stop 08/26/17 at 07:33; Status DC Thiamine HCl (Vitamin B-1) 100 mg DAILY PO Last administered on 08/26/17at 07:45 ; Start 07/30/17 at 09:00; Stop 08/26/17 at 18:17; Status DC Quetiapine Fumarate (SEROquel) 50 mg HS PO Last administered on 08/25/17at 19:32 ; Start 07/29/17 at 21:00; Stop 08/26/17 at 18:17; Status DC Medroxyprogesterone Acetate (Provera) 2.5 mg DAILY PO Last administered on 08/01at 07:25; Start 07/30/17 at 09:00; Stop 08/02/17 at 08:59; Status DC Olanzapine (ZyPREXA ZYDIS) 2.5 mg PRN Q2HR PRN PO PSYCHOSIS Last administered on 08/05/17at 11:32; Start 07/29/17 at 18:45; Stop 08/26/17 at 18:17; Status DC Divalproex Sodium (Depakote Sprinkles) 125 mg TID PO Last administered on at 13:11; Start 07/30/17 at 14:00; Stop 08/03/17 at 18:52; Status DC Medroxyprogesterone Acetate (Provera) 5 mg DAILY PO Last administered on 07:54; Start 08/02/17 at 09:00; Stop 08/02/17 at 21:43; Status DC Trazodone HCl (Desyrel) 50 mg QHS PO Last administered on 08/09/17 20:43; Start 07/31/17 at 21:00; Stop 08/10/17 at 18:36; Status DC Trazodone HCl (Desyrel) 50 mg PRN QHS PRN PO INSOMNIA Last administered on 22:09; Start 07/31/17 at 18:15; Stop 08/10/17 at 18:37; Status DC Magnesium Hydroxide (Milk Of Magnesia) 2,400 mg PRN DAILY PRN PO CONSTIPATION Last administered on 08/06/17 18:26; Start 08/02/17 at 19:45; Stop 08/26/17 at 18:17; Status DC Medroxyprogesterone Acetate (Provera) 7.5 mg DAILY PO Last administered on 08/06 08:48; Start 08/03/17 at 09:00; Stop 08/07/17 at 08:59; Status DC Divalproex Sodium (Depakote Sprinkles) 250 mg TID PO Last administered on 08:48; Start 08/03/17 at 21:00; Stop 08/06/17 at 10:54; Status DC Melatonin 3 mg QHS PO Last administered on 08/25/17at 19:34; Start 08/03/17 at 21:00; Stop 08/26/17 at 18:17; Status DC Nystatin (Nystop) 1 raquel BID TP Last administered on 08/26/17 07:49; Start at 21:00; Stop 08/26/17 at 18:17; Status DC Medroxyprogesterone Acetate (Provera) 10 mg DAILY PO Last administered on 07:44; Start 08/07/17 at 09:00; Stop 08/26/17 at 18:17; Status DC Buspirone HCl (Buspar) 5 mg 0900,1300,1700 PO Last administered on 08/17/17 17: 18; Start 08/06/17 at 09:00; Stop 08/17/17 at 18:32; Status DC Divalproex Sodium (Depakote Sprinkles) 375 mg TID PO Last administered on 12:52; Start 08/06/17 at 14:00; Stop 08/14/17 at 18:27; Status DC Docusate Calcium (Surfak) 240 mg DAILY PO Last administered on 08/26/17 07:44 ; Start 08/07/17 at 09:00; Stop 08/26/17 at 18:17; Status DC Magnesium Citrate (Citroma) 296 ml PRN DAILY PRN PO CONSTIPATION Last administered on 08/17/17 13:32; Start 08/07/17 at 15:30; Stop 08/26/17 at 18:17 ; Status DC Trazodone HCl (Desyrel) 100 mg PRN QHS PRN PO INSOMNIA Last administered on 02:00; Start 08/10/17 at 18:45; Stop 08/26/17 at 18:17; Status DC Trazodone HCl (Desyrel) 100 mg QHS PO Last administered on 08/20/17at 21:13; Start 08/10/17 at 21:00; Stop 08/21/17 at 18:27; Status DC Hydroxyzine Pamoate (Vistaril) 50 mg PRN Q2HR PRN PO ANXIETY; Start 08/11/17 at 18:45; Stop 08/26/17 at 18:17; Status DC Divalproex Sodium (Depakote Sprinkles) 500 mg TID PO Last administered on 13:11; Start 08/14/17 at 21:00; Stop 08/26/17 at 18:17; Status DC Hydralazine HCl (Apresoline) 10 mg TID PO Last administered on 08/22/17 14:19 ; Start 08/16/17 at 21:00; Stop 08/22/17 at 14:53; Status DC Furosemide (Lasix) 40 mg DAILY PO Last administered on 08/26/17 07:45; Start 08/18/17 at 09:00; Stop 08/26/17 at 18:17; Status DC Potassium Chloride (Klor-Con) 20 meq BID PO Last administered on 08/26/17at 07: 46; Start 08/17/17 at 21:00; Stop 08/26/17 at 18:17; Status DC Buspirone HCl (Buspar) 5 mg 1300,1700 PO Last administered on 08/26/17at 16:49; Start 08/18/17 at 13:00; Stop 08/26/17 at 18:17; Status DC Buspirone HCl (Buspar) 10 mg DAILY PO Last administered on 08/26/17at 07:45; Start 08/18/17 at 09:00; Stop 08/26/17 at 18:17; Status DC Trazodone HCl (Desyrel) 150 mg QHS PO Last administered on 08/25/17at 19:32; Start 08/21/17 at 21:00; Stop 08/26/17 at 18:17; Status DC Hydralazine HCl (Apresoline) 25 mg TID PO Last administered on 08/26/17at 13:12 ; Start 08/22/17 at 15:15; Stop 08/26/17 at 18:17; Status DC Insulin Human Lispro (HumaLOG) 15 units TIDAC SQ Last administered on at 16:47; Start 08/26/17 at 07:30; Stop 08/26/17 at 18:17; Status DC Insulin Human Lispro (HumaLOG) 0-7 UNITS TIDAC SQ Last administered on at 16:49; Start 08/26/17 at 11:30; Stop 08/26/17 at 18:17; Status DC Active Scripts Active Reported Humalog (Insulin Lispro) 100 Unit/1 Ml Cartridge 0-7 Unit SQ TIDAC For BG <70 units, notify provider IF EATING IF NOT EATING B-150 0 units 0 units B-200 3 units 0 units B-250 4 units 2 units B-300 6 units 3 units B-350 7 units 4 units BG >351 notify provider Trazodone Hcl 150 Mg Tablet 1 Tab PO QHS Trazodone Hcl 100 Mg Tablet 1 Tab PO PRN QHS PRN Medroxyprogesterone Acetate 10 Mg Tablet 1 Tab PO DAILY Hydroxyzine Hcl 50 Mg Tablet 50 Mg PO PRN Q2HR PRN MDD 100mg/24hrs Hydralazine Hcl 25 Mg Tablet 1 Tab PO TID Buspirone Hcl 10 Mg Tablet 1 Tab PO DAILY Buspirone Hcl 5 Mg Tablet 1 Tab PO BID@1300,1700 Seroquel (Quetiapine Fumarate) 50 Mg Tablet 1 Tab PO QHS Klor-Con M20 (Potassium Chloride) 20 Meq Tab.er.prt 1 Tab PO BID Nystop (Nystatin) 60 Gm Powder 1 Raquel TP BID Apply under ABD folds Nicotine Gum (Nicotine Polacrilex) 2 Mg Gum 2 Mg BC PRN Q2HR Discontinue if patient resumes smoking/chewing tobacco Melatonin 3 Mg Tablet 1 Tab PO QHS Milk Of Magnesia (Magnesium Hydroxide) 2,400 Mg/10 Ml Oral.susp 2,400 Mg PO PRN DAILY PRN Citroma (Magnesium Citrate) 296 Ml Solution 296 Ml PO PRN DAILY PRN Furosemide 40 Mg Tablet 1 Tab PO DAILY Surfak (Docusate Calcium) 240 Mg Capsule 240 Mg PO DAILY Depakote Sprinkle (Divalproex Sodium) 125 Mg Cap.sprink 500 Mg PO TID Lisinopril 20 Mg Tablet 1 Tab PO BID Humalog (Insulin Lispro) 100 Unit/1 Ml Insuln.pen 15 Unit SQ TIDAC Metoprolol Tartrate 50 Mg Tablet 100 Mg PO BID Levemir (Insulin Detemir) 100 Unit/1 Ml Vial 30 Unit SQ BID Thiamine Hcl 100 Mg Tablet 100 Mg PO DAILY Olanzapine 5 Mg Tablet 2.5 Mg PO PRN Q2HR PRN MDD 10mg/24hrs Folic Acid 1 Mg Tablet 1 Tab PO DAILY Gabapentin 100 Mg Capsule 100 Mg PO TID I have reviewed the current psychotropics carefully including drug interactions. Risk benefit ratio favors no change other than as noted in my dictated progress note. Diagnosis: Problems: (1) Anxiety disorder (2) Impulse control disorder (3) Bipolar affective disorder, mixed (4) Dementia, vascular, with delusions (5) Dementia with behavioral disturbance LIZ DIANE MD Aug 26, 2017 21:06
--- NOTE | 2017-08-26 22:12 | PN ---
DATE: 08/25/2017 PSYCHIATRIC PROGRESS NOTE This is a late entry for 08/25/2017, covers elements not covered in my initial note of 08/25/2017. SUBJECTIVE: I met with the patient the evening of 08/25/2017. The patient has not had any sexually inappropriate behaviors or comments, which is an improvement. REVIEW OF SYSTEMS: No CV, , pulmonary, eye system symptoms on review. MENTAL STATUS EXAM: Oriented to himself, at times to situation. Speech moderate latency, often responses monosyllabic. Abstraction fair, computation impaired, language function intact, attention span short. Mood and affect somewhat withdrawn. LABORATORY DATA: Reviewed. 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 Rest unchanged. PLAN: Continue current psychotropics. Valproic acid level therapeutic at 58. Transition to a lower level of care on 08/26/2017. MAN Newton DIANE MD DR: MATILDA/james JOB#: [id number] / [id number]
--- NOTE | 2017-08-28 10:55 | DS ---
DATE OF DISCHARGE: 08/26/2017 DISCHARGE SUMMARY AND PSYCHIATRIC PROGRESS NOTE This is a late entry for date of service 08/26/2017 and covers elements not covered in my initial note of 08/26/2017. REASON FOR ADMISSION: Please refer to the admission history for details. Briefly, the patient is a 72-year-old male, who is referred back to us from [facility] Emergency Room where he was taken due to mental status changes and significant hyperglycemia with a blood sugar in the 700s, worsening confusion, agitation, aggression. While admitted to the hospital, he was swinging at nursing staff, ripping out IV lines, sexually inappropriate, not cooperative with cares. He is homeless, had been living in motels. SIGNIFICANT FINDINGS AND CLINICAL PROGRESS: Following admission, the patient was seen daily individually by myself, followed medically per Dr. Wetzel/Dr. Chapman/Dr. Aquino. He is quite agitated, sexually inappropriate, grandiose, labile. Neuropsychological testing was completed by Dr. Mathis and fund to have significant cognitive deficits, needing the initiation of his DPOA with his son as the DPOA. Adjustments were made in his psychotropics. He was restarted on Provera for marked sexually inappropriate, aggressive, disruptive behaviors and adjusted to 10 mg a day. He is also on Seroquel 50 mg at bedtime, Zyprexa p.r.n., Depakote 500 mg 3 times a day with a Valproic acid level therapeutic at 58, trazodone 150 mg at bedtime, may repeat x 1 for insomnia, melatonin 3 mg at bedtime, BuSpar 10 mg in the morning and 5 mg at 1 p.m. and 5 p.m., hydroxyzine p.r.n. Gradually, the patient's mood appeared to stabilize. He was much more cooperative, not sexually aggressive, accepting placement in a structured setting rather than being homeless and placement arrangements were made with social service staff. REVIEW OF SYSTEMS: Prior to discharge on 08/26/2017, ambulation impaired with walker. No CV, , pulmonary, eye system symptoms on review. MENTAL STATUS EXAM: Oriented to himself and situation. Speech has moderate latency, coherent. Abstraction fair, computation impaired, language function intact, attention span short. Mood and affect, much improved, less labile. No suicidal or homicidal ideation at discharge. CONDITION AT DISCHARGE: Improved. FINAL DIAGNOSES: Bipolar 1 disorder, mixed with psychotic features, in partial remission; major neurocognitive disorder, Alzheimer, vascular with delusion, behavioral disturbance; anxiety disorder, unspecified; impulse control disorder, unspecified. Rest unchanged from admission. DISCHARGE MEDICATIONS: Please refer to the EMRAD. DISCHARGE INSTRUCTIONS: Outpatient psychiatric and medical followup at the senior care. Time for discharge day management greater than 30 minutes. LIZ DIANE MD DR: MATILDA/james JOB#: [id number] / [id number]
== END 2017-08-26 18:17 | DRG 885 ==
LOC: GEROPSY 17:24
PROVIDERS: ADMIT Psychiatry & Neurology Psychiatry; ATTEND Psychiatry & Neurology Psychiatry
DX: F25.0 Schizoaffective disorder, bipolar type (principal); E11.65 Type 2 diabetes mellitus with hyperglycemia; I11.0 Hypertensive heart disease with heart failure; I50.9 Heart failure, unspecified; F01.51 Vascular dementia, unspecified severity, with behavioral disturbance; F02.81 Dementia in other diseases classified elsewhere, unspecified severity, with behavioral disturbance; G30.0 Alzheimer's disease with early onset; E66.01 Morbid (severe) obesity due to excess calories; E78.5 Hyperlipidemia, unspecified; F41.9 Anxiety disorder, unspecified; Z71.6 Tobacco abuse counseling; F17.210 Nicotine dependence, cigarettes, uncomplicated; G47.00 Insomnia, unspecified; F10.10 Alcohol abuse, uncomplicated; F63.9 Impulse disorder, unspecified; I25.10 Atherosclerotic heart disease of native coronary artery without angina pectoris; Z66 Do not resuscitate; K59.00 Constipation, unspecified; Z59.0 Homelessness; Z79.899 Other long term (current) drug therapy; Z91.14 Patient's other noncompliance with medication regimen; Z91.19 Patient's noncompliance with other medical treatment and regimen; Z88.2 Allergy status to sulfonamides; Z68.39 Body mass index [BMI] 39.0-39.9, adult
CPT/HCPCS: 36415; 80053; 80061; 80164; 81001; 82306; 82607; 82947; 83036; 83540; 83550; 83735; 84156; 84436; 84443; 84480; 85025; 86593; 93970; 99406; J1815

== ENCOUNTER 2018-07-16 04:11 | Inpatient (IN) | payer MEDICARE ==
[~2018-07-16] VITALS: Ht 174 cm; Wt 112.5 kg
[~2018-07-16 04:11] MED LIST changes: +BUSP10TA PO; +BUSP5TAB PO; +DIVA125C2 PO; +DOCU240C30 PO; +ENOX40DI SQ; +FOLI1TAB16 PO; +FURO40TA4 PO; +HYDR-2868 PO; +HYDR50TA PO; +INSU100C SQ; +INSU100I11 SQ; +INSU100V13 SQ; +MAGN2400 PO; +MAGN296S4 PO; +MEDR10TA3 PO; +MELA3TAB2 PO; +METO50TA6 PO; +NICO2GUM42 BC; +OLAN5TAB9 PO; +THIA100T8 PO; +TRAZ-86 PO; +TRAZ150T49 PO
[2018-07-16] MEDS ORDERED: LOSA100T14 PO (04:41)
[2018-07-16] MEDS ORDERED: QUET25TA5 PO (04:41)
[2018-07-16] MEDS ORDERED: LIDOCAINE 5% TP (04:41)
[2018-07-16] MEDS ORDERED: ONDA4TAB12 PO (04:41)
[2018-07-16] MEDS ORDERED: FURO40TA4 PO (04:41)
[2018-07-16] MEDS ORDERED: DIVA500T2 PO (04:41)
[2018-07-16] MEDS ORDERED: MULT-312 PO (04:41)
[2018-07-16] MEDS ORDERED: DOCU100C28 PO (04:41)
[2018-07-16] MEDS ORDERED: TRAM50TA PO (04:41)
[2018-07-16] MEDS ORDERED: CEFP200T PO (04:41)
[2018-07-16] MEDS ORDERED: ACET325T21 PO (04:41)
[2018-07-16] MEDS ORDERED: TRIA15CR2 TP (04:41)
[2018-07-16] MEDS ORDERED: INSU100V SQ (04:41)
[2018-07-16] MEDS ORDERED: METO-247 PO (04:41)
[2018-07-16] MEDS ORDERED: MAGNESIUM HYDROXIDE 2,400 MG/30 ML ORAL.SUSP. PO PRN ×2 (06:15→06:45)
[2018-07-16] MEDS ORDERED: MAG HYDROX/AL HYDROX/SIMETH 30 ML ORAL.SUSP PO PRN (06:15)
[2018-07-16] MEDS ORDERED: METHYL SALICYLATE/MENTHOL TOPICAL OINTMENT 29GM TUBE. TP PRN (06:15)
[2018-07-16] MEDS ORDERED: ACETAMINOPHEN 325 MG TABLET PO PRN (06:15)
[2018-07-16 06:40] VITALS: BP 153/90
[2018-07-16] MEDS ORDERED: ONDANSETRON ODT 4 MG TAB.RAPDIS PO PRN (06:45)
[2018-07-16 07:43] LABS: BASO % 0 % (0-3); EOS # 0.1 x10^3/uL (0.0-0.7); EOS % 1 % (0-3); HEMATOCRIT 37.3 % (39.0-53.0); HEMOGLOBIN 12.6 g/dL (13.0-17.5); LYMPH % 17 % (24-48); MEAN CORPUSCULAR HEMOGLOBIN 30 pg (25-35); MEAN CORPUSCULAR HGB CONC 34 g/dL (31-37); MEAN CORPUSCULAR VOLUME 89 fL (79-100); MONO # 0.4 x10^3/uL (0.0-1.1); MONO % 6 % (0-9); NEUT # 4.6 x10^3uL (1.8-7.7); NEUT % 76 % (31-73); PLATELET COUNT 195 x10^3/uL (140-400); RED BLOOD COUNT 4.18 x10^6/uL (4.30-5.70); WHITE BLOOD COUNT 6.1 x10^3/uL (4.0-11.0)
[2018-07-16 08:00] LABS: ALBUMIN/GLOBULIN RATIO 0.7 (1.0-1.7); CALCIUM 8.7 mg/dL (8.5-10.1); CREATININE 0.8 mg/dL (0.7-1.3); GFR 94.8; MAGNESIUM 1.9 mg/dL (1.8-2.4); POTASSIUM 4.3 mmol/L (3.5-5.1); TOTAL BILIRUBIN 0.4 mg/dL (0.2-1.0); TOTAL PROTEIN 7.1 g/dL (6.4-8.2)
[2018-07-16 08:10] LABS: VAL ACID 18 mcg/mL (50-100)
[2018-07-16] MEDS ORDERED: LIDOCAINE 5% TOPICAL OINTMENT 35GM TUBE. TP PRN (09:00)
[2018-07-16] MEDS ORDERED: TRIAMCINOLONE ACETONIDE 0.1% TOPICAL CREAM 15GM TUBE. TP PRN (09:00)
[2018-07-16] MEDS ORDERED: medroxyPROGESTERone 5 MG TABLET PO SCH (09:00)
[2018-07-16] MEDS: DOCUSATE SODIUM 100 MG CAPSULE PO SCH (10:45)
[2018-07-16] MEDS: LOSARTAN 50 MG TABLET. PO SCH (10:45)
[2018-07-16] MEDS: DIVALPROEX SODIUM 250 MG TABLET.DR. PO SCH ×2 (10:46→21:13)
[2018-07-16] MEDS: busPIRone 10 MG TABLET. PO SCH (10:46)
[2018-07-16] MEDS: FUROSEMIDE 40 MG TABLET PO SCH ×2 (10:46→12:56)
[2018-07-16] MEDS: POTASSIUM CHLORIDE 20 MEQ TABLET.ER. PO SCH ×2 (10:46→17:52)
[2018-07-16] MEDS: MULTIVITAMIN with MINERAL TABLET. PO SCH (10:47)
[2018-07-16] MEDS: THIAMINE 100 MG TABLET. PO SCH (10:47)
[2018-07-16] MEDS: FOLIC ACID 1 MG TABLET PO SCH (10:47)
[2018-07-16] MEDS: METOPROLOL SUCC 24HR ER 50 MG TAB.ER.24H. PO SCH (10:47)
[2018-07-16] MEDS: hydrALAZINE 25 MG TABLET PO SCH ×3 (10:47→21:13)
[2018-07-16] MEDS: GABAPENTIN 100 MG CAPSULE. PO SCH ×3 (10:48→17:52)
[2018-07-16] MEDS: INSULIN LISPRO 300 UNITS/3 ML INSULN.PEN. SQ SCH ×2 (13:07→17:53)
[2018-07-16 14:17] LABS: THYROID STIM HORMONE (TSH) 3.358 uIU/mL (0.358-3.740)
[2018-07-16 16:21] VITALS: BP 143/79
[2018-07-16 17:09] LABS: THYROXINE 7.7 ug/dL (4.5-12.0)
[2018-07-16] MEDS ORDERED: INSULIN LISPRO 300 UNITS/3 ML INSULN.PEN. SQ SCH (21:00)
[2018-07-16] MEDS: MELATONIN 3 MG TABLET PO SCH (21:15)
[2018-07-16] MEDS: QUEtiapine 25 MG TABLET. PO SCH (21:15)
[2018-07-16] MEDS: traZODone 150 MG TABLET. PO SCH (21:15)
[2018-07-16] MEDS ORDERED: OLANZapine IM 10 MG VIAL. IM ONE (22:00)
--- NOTE | 2018-07-16 22:32 | PDOC ---
Exam Note: Adriano Note: Please also refer to the separate dictated note~for this date of service dictated separately. Discussed the patient with Nursing staff reviewed the chart.~Reviewed interim history and current functioning. Reviewed vital signs,~ Labs/ Radiology~and current medications noted below. Continue current treatment with the changes noted in the dictated addendum note Assessment: Vital Signs: Vital Signs Date Time Temp Pulse Resp B/P (MAP) Pulse Ox O2 Delivery O2 Flow Rate FiO2 07/16/18 21:13 68 143/79 07/16/18 16:21 97.0 20 98 Room Air Labs: Laboratory Tests Test 07/16/18 07:18 07/16/18 07:23 07/16/18 11:20 07/16/18 16:59 Glucose (Fingerstick) 233 mg/dL (70-99) H 274 mg/dL (70-99) H 325 mg/dL (70-99) H White Blood Count 6.1 x10^3/uL (4.0-11.0) Red Blood Count 4.18 x10^6/uL (4.30-5.70) L Hemoglobin 12.6 g/dL (13.0-17.5) L Hematocrit 37.3 % (39.0-53.0) L Mean Corpuscular Volume 89 fL (79-100) Mean Corpuscular Hemoglobin 30 pg (25-35) Mean Corpuscular Hemoglobin Concent 34 g/dL (31-37) Red Cell Distribution Width 15.0 % (11.5-14.5) H Platelet Count 195 x10^3/uL (140-400) Neutrophils (%) (Auto) 76 % (31-73) H Lymphocytes (%) (Auto) 17 % (24-48) L Monocytes (%) (Auto) 6 % (0-9) Eosinophils (%) (Auto) 1 % (0-3) Basophils (%) (Auto) 0 % (0-3) Neutrophils # (Auto) 4.6 x10^3uL (1.8-7.7) Lymphocytes # (Auto) 1.0 x10^3/uL (1.0-4.8) Monocytes # (Auto) 0.4 x10^3/uL (0.0-1.1) Eosinophils # (Auto) 0.1 x10^3/uL (0.0-0.7) Basophils # (Auto) 0.0 x10^3/uL (0.0-0.2) Sodium Level 139 mmol/L (136-145) Potassium Level 4.3 mmol/L (3.5-5.1) Chloride Level 104 mmol/L (98-107) Carbon Dioxide Level 25 mmol/L (21-32) Anion Gap 10 (6-14) Blood Urea Nitrogen 6 mg/dL (8-26) L Creatinine 0.8 mg/dL (0.7-1.3) Estimated GFR (Cockcroft-Gault) 94.8 BUN/Creatinine Ratio 8 (6-20) Glucose Level 242 mg/dL (70-99) H Calcium Level 8.7 mg/dL (8.5-10.1) Magnesium Level 1.9 mg/dL (1.8-2.4) Iron Level 76 ug/dL (65-175) Total Iron Binding Capacity 314 ug/dL (250-450) Iron Saturation 24 % (15-34) Total Bilirubin 0.4 mg/dL (0.2-1.0) Aspartate Amino Transferase (AST) 11 U/L (15-37) L Alanine Aminotransferase (ALT) 12 U/L (16-63) L Alkaline Phosphatase 63 U/L (46-116) Total Protein 7.1 g/dL (6.4-8.2) Albumin 3.0 g/dL (3.4-5.0) L Albumin/Globulin Ratio 0.7 (1.0-1.7) L Triglycerides Level 141 mg/dL (0-150) Cholesterol Level 178 mg/dL (0-200) LDL Cholesterol, Calculated 114 mg/dL (0-100) H VLDL Cholesterol, Calculated 28 mg/dL (0-40) Non-HDL Cholesterol Calculated 142 mg/dL (0-129) H HDL Cholesterol 36 mg/dL (40-60) L Cholesterol/HDL Ratio 4.0 25-Hydroxy Vitamin D Total 23.5 ng/mL (30-100) L Thyroid Stimulating Hormone (TSH) 3.358 uIU/mL (0.358-3.740) Thyroxine (T4) 7.7 ug/dL (4.5-12.0) Total Triiodothyronine (TT3) 114 ng/dL (71-180) Valproic Acid Level 18 mcg/mL (50-100) L Valproic Acid Last Dose Date 07/15/18 Valproic Acid Last Dose Time 2100 Treponema pallidum Antibody Nonreactive (Nonreactive) Test 07/16/18 19:16 Glucose (Fingerstick) 330 mg/dL (70-99) H Current Medications: Meds: Current Medications Acetaminophen (Tylenol) 650 mg PRN Q6HRS PRN PO PAIN / TEMP; Start 07/16/18 at 06:15; Status Cancel Multi-Ingredient Ointment (Analgesic Arthur) 1 raquel PRN QID PRN TP MUSCLE PAIN; Start 07/16/18 at 06:15 Al Hydroxide/Mg Hydroxide (Mylanta Plus Xs) 15 ml PRN AFTMEALHC PRN PO DYSPEPSIA; Start 07/16/18 at 06:15 Magnesium Hydroxide (Milk Of Magnesia) 2,400 mg PRN QHS PRN PO CONSTIPATION; Start 07/16/18 at 06:15; Status Cancel Acetaminophen (Tylenol) 650 mg PRN Q6HRS PRN PO PAIN / TEMP; Start 07/16/18 at 06:45 Gabapentin (Neurontin) 100 mg TIDWMEALS PO Last administered on 07/16/18 17:52 ; Start 07/16/18 at 08:00 Potassium Chloride (Klor-Con) 20 meq BIDWMEALS PO Last administered on 17:52; Start 07/16/18 at 08:00 Tramadol HCl (Ultram) 50 mg PRN BID PRN PO PAIN; Start 07/16/18 at 06:45 Buspirone HCl (Buspar) 10 mg DAILY PO Last administered on 07/16/18 10:46; Start 07/16/18 at 09:00 Divalproex Sodium (Depakote) 500 mg BID PO Last administered on 07/16/18 21:13 ; Start 07/16/18 at 09:00 Docusate Sodium (Colace) 200 mg DAILY PO Last administered on 07/16/18 10:45; Start 07/16/18 at 09:00 Folic Acid (Folic Acid) 1 mg DAILY PO Last administered on 07/16/18 10:47; Start 07/16/18 at 09:00 Furosemide (Lasix) 60 mg BIDACBL PO Last administered on 07/16/18 12:56; Start 07/16/18 at 07:30 Hydralazine HCl (Apresoline) 25 mg TID PO Last administered on 07/16/18 21:13; Start 07/16/18 at 09:00 Losartan Potassium (Cozaar) 100 mg DAILY PO Last administered on 07/16/18 10:45 ; Start 07/16/18 at 09:00 Magnesium Hydroxide (Milk Of Magnesia) 2,400 mg PRN DAILY PRN PO CONSTIPATION; Start 07/16/18 at 06:45 Medroxyprogesterone Acetate (Provera) 10 mg DAILY PO Last administered on 10:47; Start 07/16/18 at 09:00; Stop 07/16/18 at 18:37; Status DC Melatonin 3 mg QHS PO Last administered on 07/16/18 21:15; Start 07/16/18 at 21: 00 Metoprolol Succinate (Toprol Xl) 100 mg DAILY PO Last administered on 07/16/18 10:47; Start 07/16/18 at 09:00 Multivitamins/ Calcium (Thera-M Plus) 1 tab DAILY PO Last administered on 10:47; Start 07/16/18 at 09:00 Ondansetron HCl (Zofran Odt) 4 mg PRN Q6HRS PRN PO NAUSEA/VOMITING; Start at 06:45 Quetiapine Fumarate (SEROquel) 25 mg HS PO Last administered on 07/16/18 21:15 ; Start 07/16/18 at 21:00 Thiamine HCl (Vitamin B-1) 100 mg DAILY PO Last administered on 07/16/18 10:47 ; Start 07/16/18 at 09:00 Trazodone HCl (Desyrel) 150 mg QHS PO Last administered on 07/16/18 21:15; Start 07/16/18 at 21:00 Triamcinolone Acetonide (Kenalog) 1 raquel PRN DAILY PRN TP RASH; Start 07/16/18 at 09:00 Lidocaine (Xylocaine) 1 raquel PRN DAILY PRN TP .; Start 07/16/18 at 09:00 Insulin Human Lispro (HumaLOG) sliding scale Bl... TIDAC SQ Last administered on 3/8/19at 17:53; Start 07/16/18 at 11:30 Insulin Human Lispro (HumaLOG) blood sugar 70-15,0/0 units... HS SQ Last administered on 07/16/18at 21:16; Start 07/16/18 at 21:00 Medroxyprogesterone Acetate (Provera) 15 mg DAILY PO ; Start 07/17/18 at 09:00 Olanzapine (ZyPREXA IM) 5 mg 1X ONCE IM Last administered on 07/16/18at 21:55; Start 07/16/18 at 22:00; Stop 07/16/18 at 22:01; Status DC Olanzapine (ZyPREXA ZYDIS) 2.5 mg PRN Q2HR PRN PO ANXIETY / AGITATION; Start at 21:45 Active Scripts Active Reported Humalog (Insulin Lispro) 100 Unit/1 Ml Vial 0-3 Unit SQ HS per s/s if not eating: BS 70-200 = 0 units BS 201-250 = 2 units BS 251-300 = 3 units Depakote (Divalproex Sodium) 500 Mg Tablet.dr 500 Mg PO BID Cefpodoxime Proxetil 200 Mg Tablet 200 Mg PO BID Seroquel (Quetiapine Fumarate) 25 Mg Tablet 25 Mg PO HS Triamcinolone Acetonide 15 Gm Cream..g. 1 Raquel TP PRN DAILY PRN Ondansetron Odt (Ondansetron) 4 Mg Tab.rapdis 4 Mg PO PRN Q6HRS PRN Furosemide 40 Mg Tablet 60 Mg PO BIDACBL Acetaminophen 325 Mg Tablet 650 Mg PO PRN Q6HRS PRN Tramadol Hcl (Tramadol HCl) 50 Mg Tablet 50 Mg PO PRN BID PRN [Lidocaine Oint 5%] 1 Raquel TP PRN DAILY Apply to heel prior to wound debridement. One Daily Plus Minerals (Multivitamin With Minerals) 1 Each Tablet 1 Tab PO DAILY Losartan Potassium 100 Mg Tablet 100 Mg PO DAILY Metoprolol Succinate ( Xl ) (Metoprolol Succinate) 100 Mg Tab.er.24h 100 Mg PO DAILY Docusate Sodium 100 Mg Capsule 200 Mg PO DAILY Humalog (Insulin Lispro) 100 Unit/1 Ml Cartridge 0-7 Unit SQ TIDAC For BG <70 units, notify provider IF EATING IF NOT EATING B-150 0 units 0 units B-200 3 units 0 units B-250 4 units 2 units B-300 6 units 3 units B-350 7 units 4 units BG <60 or >351 notify provider Trazodone Hcl 150 Mg Tablet 1 Tab PO QHS Medroxyprogesterone Acetate 10 Mg Tablet 1 Tab PO DAILY Hydralazine Hcl 25 Mg Tablet 1 Tab PO TID Buspirone Hcl 10 Mg Tablet 1 Tab PO DAILY Klor-Con M20 (Potassium Chloride) 20 Meq Tab.er.prt 1 Tab PO BIDWMEALS Melatonin 3 Mg Tablet 1 Tab PO QHS Milk Of Magnesia (Magnesium Hydroxide) 2,400 Mg/10 Ml Oral.susp 2,400 Mg PO PRN DAILY PRN Thiamine Hcl 100 Mg Tablet 100 Mg PO DAILY Folic Acid 1 Mg Tablet 1 Tab PO DAILY Gabapentin (Gabapentin) 100 Mg Capsule 100 Mg PO TIDWMEALS I have reviewed the current psychotropics carefully including drug interactions. Risk benefit ratio favors no change other than as noted in my dictated progress note. Diagnosis: Problems: (1) Anxiety disorder (2) Impulse control disorder (3) Bipolar affective disorder, mixed (4) Dementia, vascular, with delusions (5) Dementia with behavioral disturbance LIZ DIANE MD Jul 16, 2018 22:31
[2018-07-17 05:45] VITALS: BP 158/85
[2018-07-17] MEDS: DIVALPROEX SODIUM 250 MG TABLET.DR. PO SCH ×2 (07:37→20:19)
[2018-07-17] MEDS: DOCUSATE SODIUM 100 MG CAPSULE PO SCH (07:38)
[2018-07-17] MEDS: POTASSIUM CHLORIDE 20 MEQ TABLET.ER. PO SCH ×2 (07:38→17:17)
[2018-07-17] MEDS: LOSARTAN 50 MG TABLET. PO SCH (07:38)
[2018-07-17] MEDS: THIAMINE 100 MG TABLET. PO SCH (07:39)
[2018-07-17] MEDS: busPIRone 10 MG TABLET. PO SCH (07:39)
[2018-07-17] MEDS: FUROSEMIDE 40 MG TABLET PO SCH ×2 (07:39→13:02)
[2018-07-17] MEDS: METOPROLOL SUCC 24HR ER 50 MG TAB.ER.24H. PO SCH (07:40)
[2018-07-17] MEDS: FOLIC ACID 1 MG TABLET PO SCH (07:40)
[2018-07-17] MEDS: hydrALAZINE 25 MG TABLET PO SCH ×3 (07:40→20:18)
[2018-07-17] MEDS: MULTIVITAMIN with MINERAL TABLET. PO SCH (07:41)
[2018-07-17] MEDS: INSULIN LISPRO 300 UNITS/3 ML INSULN.PEN. SQ SCH ×4 (07:43→17:21)
[2018-07-17] MEDS: medroxyPROGESTERone 5 MG TABLET PO SCH (08:35)
[2018-07-17] MEDS: GABAPENTIN 100 MG CAPSULE. PO SCH ×3 (08:35→17:17)
[2018-07-17 14:50] VITALS: BP 120/75
[2018-07-17 15:29] VITALS: BP 116/62
[2018-07-17 18:24] VITALS: BP 112/62
[2018-07-17] MEDS: QUEtiapine 25 MG TABLET. PO SCH (20:18)
[2018-07-17] MEDS: MELATONIN 3 MG TABLET PO SCH (20:19)
[2018-07-17] MEDS: traZODone 150 MG TABLET. PO SCH (20:19)
[2018-07-17] MEDS: INSULIN GLARGINE 300 UNITS/3 ML INSULN.PEN. SQ SCH (20:22)
--- NOTE | 2018-07-17 21:51 | HP ---
ADMIT DATE: 07/17/2018 PSYCHIATRIC EVALUATION AND ADMISSION PSYCHIATRIC HISTORY This is a late entry for 07/16/2018 and covers elements not covered in my initial note. I met with the patient in the evening. I was called by the nursing staff around 2:30 in the morning after the patient presented to the Emergency Room at [facility] from [facility], referred by his primary care physician, ____ and the staff at facility after the patient made suicidal ideation with a plan to hang himself. He admits to being extremely depressed, less helpless, worthless, resents the fact that he is in a assisted, wants to be living motels in [place], [place]. He was referred to the Emergency Room, found to be a potential danger to himself and then referred for inpatient psychiatric stabilization. CHIEF COMPLAINT: "It's nice to see you again. Yes, I felt that way." HISTORY OF PRESENT ILLNESS: The patient has a history of major depressive disorder. He has had worsening mood swings, feeling hopeless, helpless, worthless, overwhelmed with day-to-day stressors. He resides at the assisted, resents the fact that he lives there, wants to be living on his own. In the past, he has been on the street and living in hotels and unable to take care of himself and that is what prompted his prior to admission to us. I have seen him at the assisted as well. He is on the memory care unit and cognitively, he himself does have short-term memory deficits, but orientation is much better than the other residents at the facility and this frustrates him even more. No clear history of bipolar disorder or homicidal ideation. At times, he has been sexually inappropriate in his comments to female nursing staff and has been sarcastic, resistive with meds, cursing at other patients, called 1 patient "bitch" at breakfast. PAST PSYCHIATRIC HISTORY: As above. MEDICAL HISTORY: Positive for diabetes mellitus, hypertension, Accu-Cheks a.c. and at bedtime. CODE STATUS: DNR. ALLERGIES: PENICILLIN, SULFA. CURRENT PSYCHOTROPICS: Melatonin 3 mg at bedtime, BuSpar 10 mg daily, trazodone 150 at bedtime, Seroquel 25 at bedtime, Depakote ER 500 b.i.d., Provera 15 mg a day for sexually inappropriate aggressive behaviors. FAMILY HISTORY: Noncontributory. SOCIAL HISTORY: No history of alcohol, drug abuse, physical, sexual or elder abuse. He is not known to be a perpetrator. MENTAL STATUS EXAMINATION: Oriented to himself and situation. Speech has some latency, coherent. Abstraction fair, computation impaired, language function intact, attention span short. Mood and affect is depressed. Short term memory is impaired. LABORATORY DATA: Reviewed. He denies active suicidal ideation. IMPRESSION: Major depressive disorder, recurrent with rule out psychotic features; anxiety disorder, unspecified; impulse control disorder, unspecified. Rest as above. PLAN: Continue current psychotropics, observe baseline, adjust further as clinically indicated. I will see the patient daily individually from a psychiatric standpoint, medical followup with Dr. Chapman. Estimated length of stay 10 to 12 days. DISPOSITION PLANS: Back to [facility] at discharge. LIZ DIANE MD DR: MATILDA/james JOB#: [id number] / [id number]
--- NOTE | 2018-07-17 23:12 | PN ---
DATE: 07/17/2018 SUBJECTIVE: The patient was seen today, met with the staff, chart reviewed. The patient apparently has been combative, resistive to care, refusing to shower, also scratching and hitting staff. The patient apparently has been sexually inappropriate towards the staff. VITAL SIGNS: Temperature 97.6, blood pressure 158/85, pulse 78, respiration 18, and O2 sat 97%. Slept about 7 hours last night. The patient's appetite improved. MEDICATIONS: The patient's current medications include Provera 15 mg daily, olanzapine 2.5 mg p.r.n., trazodone 150 mg at night, Seroquel 25 mg at night, melatonin 3 mg at night, Depakote 500 mg b.i.d., BuSpar 10 mg daily, gabapentin 100 mg t.i.d. p.o. The patient is also on tramadol 50 mg b.i.d. p.r.n. The patient is not having any side effects to the medications. LABORATORY DATA: The patient's lab reviewed, within normal limits. ASSESSMENT: Major depressive disorder, chronic and impulse control disorder, unspecified. PLAN: To continue with the treatment. WILI FREEMAN MD DR: KEISHA/james JOB#: [id number] / [id number]
--- NOTE | 2018-07-18 01:06 | CONS ---
DATE OF CONSULTATION: 07/17/2018 REASON FOR CONSULTATION: Medical management. HISTORY OF PRESENT ILLNESS: The patient is a 72-year-old male patient, a resident at [facility] was evaluated at [facility] Emergency Room. He apparently was seen at [facility] Emergency Room with suicidal ideation. He said he was trying to kill himself. There is no reason to live. He was very helpless, hopeless, sad, depressed, suicidal. He apparently is disabled and he is known to have highly impulsive behavior and therefore, the patient was [facility] stabilization. He has been living at a group home for almost a year and a half. He apparently has suicidal ideation before, but now he made the statement that he has formulated the plan and it was felt that the patient is not safe to be at the group home, would be stable to have acute risk. PAST MEDICAL HISTORY: Significant for hypertension, type 2 diabetes. PAST SURGICAL HISTORY: Unremarkable. ALLERGIES: He IS ALLERGIC TO SULFA AND PENICILLIN. FAMILY HISTORY: Noncontributory. SOCIAL HISTORY: He is apparently , has 3 sons. He has been in [facility] almost a year and a half. He used to be a smoker and heavy drinker and in fact was diagnosed with the alcohol-induced dementia prior to admission to that facility. MEDICATIONS: He is currently on following medications: He is on Vantin 200 mg twice a day, hydralazine 25 mg 3 times a day, metoprolol succinate 100 mg daily, losartan potassium 100 mg daily, tramadol 50 mg twice a day, Tylenol 650 mg every 6 hours, divalproex sodium 500 mg twice a day, gabapentin 100 mg 3 times a day and trazodone 150 mg at bedtime, quetiapine fumarate 25 mg at bedtime. He is on buspirone 10 mg daily. He is on potassium chloride 20 mEq twice a day with meals, furosemide 60 mg twice a day, Colace 200 mg daily, magnesium hydroxide for milk of magnesia 30 mL p.o. daily, ondansetron 4 mg every 6 hours. He is on Humalog insulin as insulin sliding scale before meals and medroxyprogesterone acetate 10 mg daily for being 6 units appropriate. He is on triamcinolone acetonide 15 grams applied topically twice a day. He is on folic acid 1 mg once a day, thiamine 100 mg daily, multivitamin with mineral 1 tablet once a day, melatonin 3 mg at bedtime. He is on Lidoderm ointment 5% apply topically as needed. PHYSICAL EXAMINATION: GENERAL: When I examined him, he looked well and was clearly in no apparent respiratory distress. No jaundice, cyanosis, or thyromegaly. No jugular venous distention. No limb edema. VITAL SIGNS: Heart rate was 64, blood pressure was 116/62, temperature was 98, respiratory rate 20, and oxygen saturation was 98%. HEAD, EYES, EARS, NOSE AND THROAT: Showed normocephalic, atraumatic. NECK: Supple. HEART: Showed normal first and second heart sounds. No gallop, rub or murmur. CHEST: Clear to auscultation. No crepitation or rhonchi. ABDOMEN: Distended, soft, nontender. No guarding or rigidity. No organomegaly. All hernial orifices intact. Bowel sounds normal. NEUROLOGIC: He was awake, alert, somehow very slow has a soft monotonous speech; however, all his cranial nerves are intact. EXTREMITIES: He moves extremities without difficulty, although he is mostly bed bound, wheelchair bound. LABORATORY WORK: Showed a white cell count of 6100, hemoglobin 12.6, hematocrit 37, MCV 89, platelet count of 195,000. His chemistry showed that his serum sodium was 139, potassium 4.3, chloride 104, bicarbonate 25, anion gap of 10, BUN 6, creatinine 0.8, estimated GFR was 95 mL per minute. His glucose was 242, calcium was 8.7, magnesium was 1.9. Total bilirubin, AST, ALT, alkaline phosphatase were normal. Total protein 7.1, albumin 3. His hemoglobin A1c was high at 8%. Serum iron was 76, TIBC was 314 and percent saturation was 24%. His serum triglycerides was 141, total cholesterol 178, LDL was 114, VLDL was 28, HDL cholesterol 36 and the ratio was 4. His 25-hydroxy vitamin D was low at 23.5; however, his TSH, total T4 and total T3 are all within normal range. His valproic acid trough level was only 18 mcg, which is obviously will below the therapeutic range and his Treponema pallidum antibodies were nonreactive. IMPRESSION: In summary, this is a 72-year-old male patient, a resident at [facility], who has been there for almost a year and a half, who has had multiple suicidal ideation before; however, now he apparently formulated the plan and would like to hang himself. He was evaluated at [facility] where he continued to be suicidal and it was felt that he is at high risk for committing suicide at the group home and therefore, he was [facility] for inpatient psychiatric stabilization. Medically, he is known to have type 2 diabetes and hypertension. All-in-all, he seemed to be stable except that his blood sugar is not optimally controlled. We will probably start him on a scheduled NovoLog insulin before meals and also at bedtime and adjusted as needed. Thank you, Dr. Danielson for allowing me to participate in the care of this patient. LIGIA HORTA MD DR: ROLANDO/james JOB#: [id number] / [id number]
[2018-07-18 06:13] VITALS: BP 148/77
[2018-07-18 07:53] LABS: HEMATOCRIT 40.6 % (39.0-53.0); HEMOGLOBIN 13.4 g/dL (13.0-17.5); RED BLOOD COUNT 4.52 x10^6/uL (4.30-5.70); RED CELL DISTRIBUTION WIDTH 15.7 % (11.5-14.5); WHITE BLOOD COUNT 11.2 x10^3/uL (4.0-11.0)
[2018-07-18 07:58] LABS: ALBUMIN 3.3 g/dL (3.4-5.0); ALBUMIN/GLOBULIN RATIO 0.8 (1.0-1.7); ALK PHOS 72 U/L (46-116); ALT (SGPT) 13 U/L (16-63); ANION GAP 13 (6-14); AST (SGOT) 14 U/L (15-37); BLOOD UREA NITROGEN 20 mg/dL (8-26); BUN/CREATININE RATIO 13 (6-20); CALCIUM 8.9 mg/dL (8.5-10.1); CARBON DIOXIDE 25 mmol/L (21-32); CHLORIDE 102 mmol/L (98-107); CREATININE 1.5 mg/dL (0.7-1.3); GFR 45.9; GLUCOSE 308 mg/dL (70-99); SODIUM 140 mmol/L (136-145); TOTAL BILIRUBIN 0.5 mg/dL (0.2-1.0); TOTAL PROTEIN 7.6 g/dL (6.4-8.2)
[2018-07-18 07:59] LABS: VAL ACID 56 mcg/mL (50-100)
[2018-07-18 08:01] LABS: POTASSIUM 4.5 mmol/L (3.5-5.1)
[2018-07-18] MEDS: POTASSIUM CHLORIDE 20 MEQ TABLET.ER. PO SCH ×2 (09:33→17:39)
[2018-07-18] MEDS: DOCUSATE SODIUM 100 MG CAPSULE PO SCH (09:34)
[2018-07-18] MEDS: busPIRone 10 MG TABLET. PO SCH (09:34)
[2018-07-18] MEDS: medroxyPROGESTERone 5 MG TABLET PO SCH (09:34)
[2018-07-18] MEDS: FUROSEMIDE 40 MG TABLET PO SCH ×2 (09:35→12:45)
[2018-07-18] MEDS: LOSARTAN 50 MG TABLET. PO SCH (09:35)
[2018-07-18] MEDS: FOLIC ACID 1 MG TABLET PO SCH (09:36)
[2018-07-18] MEDS: THIAMINE 100 MG TABLET. PO SCH (09:36)
[2018-07-18] MEDS: METOPROLOL SUCC 24HR ER 50 MG TAB.ER.24H. PO SCH (09:36)
[2018-07-18] MEDS: MULTIVITAMIN with MINERAL TABLET. PO SCH (09:36)
[2018-07-18] MEDS: DIVALPROEX SODIUM 250 MG TABLET.DR. PO SCH ×2 (09:37→19:50)
[2018-07-18] MEDS: hydrALAZINE 25 MG TABLET PO SCH ×2 (09:37→14:09)
[2018-07-18] MEDS: GABAPENTIN 100 MG CAPSULE. PO SCH ×3 (09:39→17:53)
[2018-07-18] MEDS: INSULIN LISPRO 300 UNITS/3 ML INSULN.PEN. SQ SCH ×6 (09:40→18:04)
[2018-07-18 14:07] VITALS: BP 115/76
[2018-07-18 16:20] VITALS: BP 121/66
[2018-07-18] MEDS: MELATONIN 3 MG TABLET PO SCH (19:49)
[2018-07-18] MEDS: traZODone 150 MG TABLET. PO SCH (19:49)
[2018-07-18] MEDS: QUEtiapine 25 MG TABLET. PO SCH (19:50)
[2018-07-18] MEDS: INSULIN GLARGINE 300 UNITS/3 ML INSULN.PEN. SQ SCH (19:59)
[2018-07-18] MEDS: traMADol 50 MG TABLET PO PRN (23:03)
--- NOTE | 2018-07-19 02:08 | PN ---
DATE: 07/18/2018 SUBJECTIVE: The patient was seen today, met with the staff, chart reviewed. The patient continues to exhibit behavior problems, refusing his medications, periods of feeling weak and tired, and also complains of feeling drowsy in the morning. OBSERVATION: Vital signs, stable. The patient's sleeping is fair, appetite fair. MEDICATIONS: The patient's current medications include Provera 15 mg daily, olanzapine 2.5 mg p.r.n., trazodone 150 mg at night, Seroquel 25 mg at night, melatonin 3 mg at night, Depakote 500 mg b.i.d., BuSpar 10 mg daily, gabapentin 100 mg t.i.d. p.o., and also tramadol 50 mg b.i.d. p.r.n. The patient is not having any side effects. ASSESSMENT: Major depressive disorder, chronic and impulse control disorder, unspecified. PLAN: To continue with the treatment. WILI FREEMAN MD DR: KEISHA/james JOB#: [id number] / [id number]
[2018-07-19 06:06] VITALS: BP_SYST 124
[2018-07-19] MEDS: medroxyPROGESTERone 5 MG TABLET PO SCH (08:08)
[2018-07-19] MEDS: DOCUSATE SODIUM 100 MG CAPSULE PO SCH (08:09)
[2018-07-19] MEDS: POTASSIUM CHLORIDE 20 MEQ TABLET.ER. PO SCH ×2 (08:10→17:05)
[2018-07-19] MEDS: THIAMINE 100 MG TABLET. PO SCH (08:10)
[2018-07-19] MEDS: busPIRone 10 MG TABLET. PO SCH (08:10)
[2018-07-19] MEDS: METOPROLOL SUCC 24HR ER 50 MG TAB.ER.24H. PO SCH (08:11)
[2018-07-19] MEDS: DIVALPROEX SODIUM 250 MG TABLET.DR. PO SCH ×2 (08:11→21:07)
[2018-07-19] MEDS: FOLIC ACID 1 MG TABLET PO SCH (08:11)
[2018-07-19] MEDS: MULTIVITAMIN with MINERAL TABLET. PO SCH (08:11)
[2018-07-19] MEDS: GABAPENTIN 100 MG CAPSULE. PO SCH ×3 (08:11→17:05)
[2018-07-19] MEDS: INSULIN LISPRO 300 UNITS/3 ML INSULN.PEN. SQ SCH ×6 (08:14→17:10)
[2018-07-19] MEDS: FUROSEMIDE 40 MG TABLET PO SCH ×2 (08:18→11:50)
[2018-07-19] MEDS: LOSARTAN 25 MG TABLET. PO SCH (08:19)
[2018-07-19 16:25] VITALS: BP 130/64
[2018-07-19] MEDS: ACETAMINOPHEN 325 MG TABLET PO PRN (17:05)
[2018-07-19] MEDS: QUEtiapine 25 MG TABLET. PO SCH (21:07)
[2018-07-19] MEDS: traZODone 150 MG TABLET. PO SCH (21:07)
[2018-07-19] MEDS: MELATONIN 3 MG TABLET PO SCH (21:07)
[2018-07-19] MEDS: INSULIN GLARGINE 300 UNITS/3 ML INSULN.PEN. SQ SCH (21:09)
[2018-07-19] MEDS: traMADol 50 MG TABLET PO PRN (21:31)
--- NOTE | 2018-07-20 03:09 | PN ---
DATE: 07/19/2018 SUBJECTIVE: The patient was seen today. I met with the staff. Chart reviewed. Staff reports the patient has been constantly complaining negative thinking, irritability, mood swings complaints of severe leg pain, which is chronic. He is also on tramadol p.r.n. The patient also has made suicidal statements. OBSERVATION: VITAL SIGNS: Temperature 98.1, blood pressure 124/73, pulse 76, respirations 20, O2 sat 96%. Slept about 6 hours last night. The patient's appetite improved. MEDICATIONS: The patient's current medications include Provera 50 mg daily, olanzapine 2.5 mg p.r.n., trazodone 150 mg at night, Seroquel 25 mg at night, melatonin 3 mg at night, Depakote 500 mg b.i.d., BuSpar 10 mg daily, gabapentin 100 mg t.i.d. p.o., and tramadol 50 mg b.i.d. p.r.n. The patient is not having any side effects. ASSESSMENT: 1. Major depressive disorder, chronic. 2. Impulse control disorder, unspecified. PLAN: The patient will be started on Cymbalta 30 mg daily for depression. WILI FREEMAN MD DR: KEISHA/james JOB#: [id number] / [id number]
[2018-07-20 06:29] VITALS: BP 151/78
[2018-07-20] MEDS: MULTIVITAMIN with MINERAL TABLET. PO SCH (08:18)
[2018-07-20] MEDS: DIVALPROEX SODIUM 250 MG TABLET.DR. PO SCH ×2 (08:18→20:05)
[2018-07-20] MEDS: medroxyPROGESTERone 5 MG TABLET PO SCH (08:18)
[2018-07-20] MEDS: METOPROLOL SUCC 24HR ER 50 MG TAB.ER.24H. PO SCH (08:19)
[2018-07-20] MEDS: POTASSIUM CHLORIDE 20 MEQ TABLET.ER. PO SCH ×2 (08:19→17:28)
[2018-07-20] MEDS: FUROSEMIDE 40 MG TABLET PO SCH ×2 (08:19→12:33)
[2018-07-20] MEDS: busPIRone 10 MG TABLET. PO SCH (08:20)
[2018-07-20] MEDS: DOCUSATE SODIUM 100 MG CAPSULE PO SCH (08:20)
[2018-07-20] MEDS: THIAMINE 100 MG TABLET. PO SCH (08:20)
[2018-07-20] MEDS: FOLIC ACID 1 MG TABLET PO SCH (08:22)
[2018-07-20] MEDS: LOSARTAN 25 MG TABLET. PO SCH (08:22)
[2018-07-20] MEDS: GABAPENTIN 100 MG CAPSULE. PO SCH ×3 (08:22→17:28)
[2018-07-20] MEDS: DULoxetine HCL 30 MG CAPSULE.DR PO SCH (08:22)
[2018-07-20] MEDS: INSULIN LISPRO 300 UNITS/3 ML INSULN.PEN. SQ SCH ×6 (08:40→17:32)
[2018-07-20] MEDS ORDERED: traMADol 50 MG TABLET PO PRN (10:45)
[2018-07-20 14:10] VITALS: BP 154/77
[2018-07-20 16:22] VITALS: BP 156/67
[2018-07-20] MEDS: traZODone 150 MG TABLET. PO SCH (20:05)
[2018-07-20] MEDS: MELATONIN 3 MG TABLET PO SCH (20:05)
[2018-07-20] MEDS: QUEtiapine 25 MG TABLET. PO SCH (20:05)
[2018-07-20] MEDS: traMADol 50 MG TABLET PO SCH (20:07)
[2018-07-20] MEDS: INSULIN GLARGINE 300 UNITS/3 ML INSULN.PEN. SQ SCH (20:11)
--- NOTE | 2018-07-21 02:18 | PN ---
DATE: 07/20/2018 SUBJECTIVE: The patient was seen today, met with the staff, chart reviewed. The patient continues to have multiple physical complaints, mood swings and also irritable and chisholm and at times, making suicidal statements. OBSERVATION: VITAL SIGNS: Temperature 97.2, blood pressure 156/67, pulse 70, respirations 17, O2 sat 98%. MEDICATIONS: The patient's current medications include Provera, olanzapine, trazodone, Seroquel, melatonin, Depakote, BuSpar, also on gabapentin and tramadol. The patient was started on Cymbalta 30 mg daily for depression. ASSESSMENT: 1. Major depressive disorder, chronic. 2. Impulse control disorder, unspecified. PLAN: To continue with the treatment. WILI FREEMAN MD DR: KEISHA/james JOB#: [id number] / [id number]
[2018-07-21 06:06] VITALS: BP 146/68
[2018-07-21] MEDS: INSULIN LISPRO 300 UNITS/3 ML INSULN.PEN. SQ SCH ×6 (08:24→19:07)
[2018-07-21] MEDS: medroxyPROGESTERone 5 MG TABLET PO SCH (08:25)
[2018-07-21] MEDS: LOSARTAN 25 MG TABLET. PO SCH (08:26)
[2018-07-21] MEDS: DOCUSATE SODIUM 100 MG CAPSULE PO SCH (08:26)
[2018-07-21] MEDS: FOLIC ACID 1 MG TABLET PO SCH (08:26)
[2018-07-21] MEDS: DIVALPROEX SODIUM 250 MG TABLET.DR. PO SCH ×2 (08:26→20:53)
[2018-07-21] MEDS: FUROSEMIDE 40 MG TABLET PO SCH ×2 (08:27→12:24)
[2018-07-21] MEDS: MULTIVITAMIN with MINERAL TABLET. PO SCH (08:27)
[2018-07-21] MEDS: METOPROLOL SUCC 24HR ER 50 MG TAB.ER.24H. PO SCH (08:27)
[2018-07-21] MEDS: busPIRone 10 MG TABLET. PO SCH (08:27)
[2018-07-21] MEDS: DULoxetine HCL 30 MG CAPSULE.DR PO SCH (08:27)
[2018-07-21] MEDS: POTASSIUM CHLORIDE 20 MEQ TABLET.ER. PO SCH ×2 (08:28→17:40)
[2018-07-21] MEDS: THIAMINE 100 MG TABLET. PO SCH (08:28)
[2018-07-21] MEDS: GABAPENTIN 100 MG CAPSULE. PO SCH ×3 (08:30→17:39)
[2018-07-21 17:28] VITALS: BP 116/67
[2018-07-21] MEDS: QUEtiapine 25 MG TABLET. PO SCH (20:53)
[2018-07-21] MEDS: traZODone 150 MG TABLET. PO SCH (20:53)
[2018-07-21] MEDS: MELATONIN 3 MG TABLET PO SCH (20:53)
[2018-07-21] MEDS: traMADol 50 MG TABLET PO SCH (20:55)
[2018-07-21] MEDS: INSULIN GLARGINE 300 UNITS/3 ML INSULN.PEN. SQ SCH (20:56)
[2018-07-22 07:00] VITALS: BP 126/74
[2018-07-22] MEDS: busPIRone 10 MG TABLET. PO SCH (08:32)
[2018-07-22] MEDS: medroxyPROGESTERone 5 MG TABLET PO SCH (08:32)
[2018-07-22] MEDS: LOSARTAN 25 MG TABLET. PO SCH (08:33)
[2018-07-22] MEDS: THIAMINE 100 MG TABLET. PO SCH (08:33)
[2018-07-22] MEDS: DIVALPROEX SODIUM 250 MG TABLET.DR. PO SCH ×2 (08:33→19:28)
[2018-07-22] MEDS: ACETAMINOPHEN 325 MG TABLET PO PRN (08:33)
[2018-07-22] MEDS: DULoxetine HCL 30 MG CAPSULE.DR PO SCH (08:33)
[2018-07-22] MEDS: MULTIVITAMIN with MINERAL TABLET. PO SCH (08:33)
[2018-07-22] MEDS: DOCUSATE SODIUM 100 MG CAPSULE PO SCH (08:33)
[2018-07-22] MEDS: POTASSIUM CHLORIDE 20 MEQ TABLET.ER. PO SCH ×2 (08:34→18:11)
[2018-07-22] MEDS: FOLIC ACID 1 MG TABLET PO SCH (08:34)
[2018-07-22] MEDS: FUROSEMIDE 40 MG TABLET PO SCH ×2 (08:35→12:38)
[2018-07-22] MEDS: METOPROLOL SUCC 24HR ER 50 MG TAB.ER.24H. PO SCH (08:35)
[2018-07-22] MEDS: GABAPENTIN 100 MG CAPSULE. PO SCH ×3 (08:36→18:11)
[2018-07-22] MEDS: INSULIN LISPRO 300 UNITS/3 ML INSULN.PEN. SQ SCH ×6 (08:37→18:19)
[2018-07-22 16:30] VITALS: BP 135/73
[2018-07-22] MEDS: traZODone 150 MG TABLET. PO SCH (19:28)
[2018-07-22] MEDS: MELATONIN 3 MG TABLET PO SCH (19:28)
[2018-07-22] MEDS: QUEtiapine 25 MG TABLET. PO SCH (19:28)
[2018-07-22] MEDS: traMADol 50 MG TABLET PO SCH (19:29)
[2018-07-22] MEDS: INSULIN GLARGINE 300 UNITS/3 ML INSULN.PEN. SQ SCH (19:30)
--- NOTE | 2018-07-22 23:59 | PN ---
DATE: 07/22/2018 SUBJECTIVE: The patient was seen today, met with the staff, chart reviewed and also met with the patient's family member. The patient continues to show improvement, not having any major behavior problems. Still having mood swings. OBSERVATION: VITAL SIGNS: Temperature 97.7, blood pressure 135/73, pulse 68, respirations 19, O2 sat 94%. The patient's sleep improved, appetite is fair. MEDICATIONS: The patient's current medications include trazodone, Seroquel, melatonin, Depakote, BuSpar, gabapentin, tramadol and also Cymbalta. The patient is not having any side effects. No falls. ASSESSMENT: 1. Major depressive disorder, chronic. 2. Impulse control disorder, unspecified. PLAN: To continue with the treatment. WILI FREEMAN MD DR: KEISHA/james JOB#: [id number] / [id number]
[2018-07-23 06:03] VITALS: BP 134/72
[2018-07-23 07:12] LABS: BASO % 0 % (0-3); EOS # 0.1 x10^3/uL (0.0-0.7); EOS % 2 % (0-3); HEMOGLOBIN 11.1 g/dL (13.0-17.5); LYMPH # 1.4 x10^3/uL (1.0-4.8); LYMPH % 24 % (24-48); MEAN CORPUSCULAR HEMOGLOBIN 30 pg (25-35); MEAN CORPUSCULAR HGB CONC 34 g/dL (31-37); MEAN CORPUSCULAR VOLUME 90 fL (79-100); MONO # 0.5 x10^3/uL (0.0-1.1); MONO % 9 % (0-9); NEUT # 3.8 x10^3uL (1.8-7.7); NEUT % 65 % (31-73); PLATELET COUNT 132 x10^3/uL (140-400); RED BLOOD COUNT 3.66 x10^6/uL (4.30-5.70); WHITE BLOOD COUNT 5.9 x10^3/uL (4.0-11.0)
[2018-07-23 07:20] LABS: ALBUMIN 2.7 g/dL (3.4-5.0); ALBUMIN/GLOBULIN RATIO 0.7 (1.0-1.7); CALCIUM 8.5 mg/dL (8.5-10.1); CREATININE 1.2 mg/dL (0.7-1.3); GFR 59.3; POTASSIUM 4.4 mmol/L (3.5-5.1); TOTAL BILIRUBIN 0.5 mg/dL (0.2-1.0); TOTAL PROTEIN 6.4 g/dL (6.4-8.2)
[2018-07-23] MEDS: FUROSEMIDE 40 MG TABLET PO SCH ×3 (07:30→11:12)
[2018-07-23] MEDS: INSULIN LISPRO 300 UNITS/3 ML INSULN.PEN. SQ SCH ×6 (07:30→17:49)
[2018-07-23] MEDS: GABAPENTIN 100 MG CAPSULE. PO SCH ×4 (08:00→17:46)
[2018-07-23] MEDS: METOPROLOL SUCC 24HR ER 50 MG TAB.ER.24H. PO SCH (08:49)
[2018-07-23] MEDS: DIVALPROEX SODIUM 250 MG TABLET.DR. PO SCH ×2 (08:50→19:23)
[2018-07-23] MEDS: medroxyPROGESTERone 5 MG TABLET PO SCH (08:50)
[2018-07-23] MEDS: busPIRone 10 MG TABLET. PO SCH (08:51)
[2018-07-23] MEDS: DOCUSATE SODIUM 100 MG CAPSULE PO SCH (08:51)
[2018-07-23] MEDS: MULTIVITAMIN with MINERAL TABLET. PO SCH (08:51)
[2018-07-23] MEDS: LOSARTAN 25 MG TABLET. PO SCH (08:51)
[2018-07-23] MEDS: THIAMINE 100 MG TABLET. PO SCH (08:51)
[2018-07-23] MEDS: FOLIC ACID 1 MG TABLET PO SCH (08:52)
[2018-07-23] MEDS: POTASSIUM CHLORIDE 20 MEQ TABLET.ER. PO SCH ×2 (08:52→17:47)
[2018-07-23] MEDS: DULoxetine HCL 30 MG CAPSULE.DR PO SCH (08:52)
[2018-07-23 16:16] VITALS: BP 131/59
[2018-07-23] MEDS: QUEtiapine 25 MG TABLET. PO SCH (19:23)
[2018-07-23] MEDS: traZODone 150 MG TABLET. PO SCH (19:23)
[2018-07-23] MEDS: MELATONIN 3 MG TABLET PO SCH (19:23)
[2018-07-23] MEDS: traMADol 50 MG TABLET PO SCH (19:23)
[2018-07-23] MEDS: INSULIN GLARGINE 300 UNITS/3 ML INSULN.PEN. SQ SCH (19:46)
--- NOTE | 2018-07-23 23:10 | PN ---
DATE: 07/23/2018 SUBJECTIVE: The patient was seen today, met with the staff, chart reviewed. Staff reports increased behavior problems, verbally aggressive, irritable, angry. OBSERVATION: VITAL SIGNS: Temperature 97.9, blood pressure 134/72, pulse 76, respiration 18, O2 sat 96%. Slept about 7 hours last night. The patient's appetite is fair. No major side effects. MEDICATIONS: His current medications include Seroquel, melatonin, Depakote, BuSpar, Gabapentin, tramadol, and Cymbalta. ASSESSMENT: 1. Major depressive disorder, chronic. 2. Impulse control disorder, unspecified. PLAN: To continue with the treatment. WILI FREEMAN MD DR: KEISHA/james JOB#: [id number] / [id number]
[2018-07-24 05:55] VITALS: BP 124/78
[2018-07-24] MEDS: DOCUSATE SODIUM 100 MG CAPSULE PO SCH (08:08)
[2018-07-24] MEDS: medroxyPROGESTERone 5 MG TABLET PO SCH (08:08)
[2018-07-24] MEDS: LOSARTAN 25 MG TABLET. PO SCH (08:09)
[2018-07-24] MEDS: DULoxetine HCL 30 MG CAPSULE.DR PO SCH (08:09)
[2018-07-24] MEDS: POTASSIUM CHLORIDE 20 MEQ TABLET.ER. PO SCH ×2 (08:09→17:32)
[2018-07-24] MEDS: METOPROLOL SUCC 24HR ER 50 MG TAB.ER.24H. PO SCH (08:09)
[2018-07-24] MEDS: DIVALPROEX SODIUM 250 MG TABLET.DR. PO SCH ×2 (08:09→19:50)
[2018-07-24] MEDS: busPIRone 10 MG TABLET. PO SCH (08:10)
[2018-07-24] MEDS: FUROSEMIDE 40 MG TABLET PO SCH ×2 (08:10→12:02)
[2018-07-24] MEDS: THIAMINE 100 MG TABLET. PO SCH (08:10)
[2018-07-24] MEDS: MULTIVITAMIN with MINERAL TABLET. PO SCH (08:10)
[2018-07-24] MEDS: FOLIC ACID 1 MG TABLET PO SCH (08:10)
[2018-07-24] MEDS: INSULIN LISPRO 300 UNITS/3 ML INSULN.PEN. SQ SCH ×6 (08:11→17:46)
[2018-07-24] MEDS: GABAPENTIN 100 MG CAPSULE. PO SCH ×3 (08:13→17:31)
[2018-07-24 16:29] VITALS: BP 107/69
--- NOTE | 2018-07-24 17:39 | PN ---
DATE: 07/24/2018 SUBJECTIVE: The patient was seen today, met with the staff, chart reviewed. The patient continues to have behavior problems, verbally aggressive, irritable, angry and having mood swings. OBSERVATION: VITAL SIGNS: Temperature 98.1, blood pressure 124/78, pulse 78, respirations 20, O2 sat 98%. Slept about 6 hours last night. CURRENT MEDICATIONS: The patient's current medications include Seroquel, melatonin, Depakote, BuSpar, gabapentin, tramadol, and Cymbalta. LABORATORY DATA: The patient's lab reviewed, no significant change from the previous readings. ASSESSMENT: Major depressive disorder, chronic. Impulse control disorder, unspecified. PLAN: To continue with the treatment. WILI FREEMAN MD DR: KEISHA/james JOB#: [id number] / [id number]
[2018-07-24] MEDS: traMADol 50 MG TABLET PO SCH (19:50)
[2018-07-24] MEDS: traZODone 150 MG TABLET. PO SCH (19:50)
[2018-07-24] MEDS: QUEtiapine 25 MG TABLET. PO SCH (19:50)
[2018-07-24] MEDS: MELATONIN 3 MG TABLET PO SCH (19:51)
[2018-07-24] MEDS: INSULIN GLARGINE 300 UNITS/3 ML INSULN.PEN. SQ SCH (19:54)
[2018-07-25 05:28] VITALS: BP 138/76
[2018-07-25] MEDS: INSULIN LISPRO 300 UNITS/3 ML INSULN.PEN. SQ SCH ×6 (07:30→17:47)
[2018-07-25] MEDS: DIVALPROEX SODIUM 250 MG TABLET.DR. PO SCH ×2 (08:38→21:04)
[2018-07-25] MEDS: MULTIVITAMIN with MINERAL TABLET. PO SCH (08:39)
[2018-07-25] MEDS: METOPROLOL SUCC 24HR ER 50 MG TAB.ER.24H. PO SCH (08:42)
[2018-07-25] MEDS: FUROSEMIDE 40 MG TABLET PO SCH ×2 (08:45→13:17)
[2018-07-25] MEDS: busPIRone 10 MG TABLET. PO SCH (08:45)
[2018-07-25] MEDS: FOLIC ACID 1 MG TABLET PO SCH (08:47)
[2018-07-25] MEDS: medroxyPROGESTERone 5 MG TABLET PO SCH (08:47)
[2018-07-25] MEDS: LOSARTAN 25 MG TABLET. PO SCH (08:51)
[2018-07-25] MEDS: DOCUSATE SODIUM 100 MG CAPSULE PO SCH (08:51)
[2018-07-25] MEDS: THIAMINE 100 MG TABLET. PO SCH (08:52)
[2018-07-25] MEDS: POTASSIUM CHLORIDE 20 MEQ TABLET.ER. PO SCH ×2 (08:52→17:48)
[2018-07-25] MEDS: GABAPENTIN 100 MG CAPSULE. PO SCH ×3 (09:00→17:48)
[2018-07-25] MEDS: DULoxetine HCL 30 MG CAPSULE.DR PO SCH (09:01)
[2018-07-25 15:24] VITALS: BP 109/87
[2018-07-25] MEDS: traMADol 50 MG TABLET PO SCH (21:04)
[2018-07-25] MEDS: MELATONIN 3 MG TABLET PO SCH (21:05)
[2018-07-25] MEDS: traZODone 150 MG TABLET. PO SCH (21:06)
[2018-07-25] MEDS: QUEtiapine 25 MG TABLET. PO SCH (21:06)
[2018-07-25] MEDS: INSULIN GLARGINE 300 UNITS/3 ML INSULN.PEN. SQ SCH (21:07)
--- NOTE | 2018-07-25 22:43 | PDOC ---
Exam Note: Adriano Note: Please also refer to the separate dictated note~for this date of service dictated separately.~Patient seen individually. Discussed the patient with Nursing staff reviewed the chart.~Reviewed interim history and current functioning. Reviewed vital signs,~Labs/ Radiology~and current medications noted below. Continue current treatment with the changes noted in the dictated addendum note Assessment: Vital Signs: Vital Signs Date Time Temp Pulse Resp B/P (MAP) Pulse Ox O2 Delivery O2 Flow Rate FiO2 07/25/18 21:06 67 109/87 07/25/18 21:04 18 98 Room Air 07/25/18 15:24 97.7 I&O Intake and Output 07/25/18 07:00 Intake Total 960 ml Balance 960 ml Intake Oral 960 ml Labs: Laboratory Tests Test 07/25/18 07:15 07/25/18 11:33 07/25/18 16:50 07/25/18 19:22 Glucose (Fingerstick) 118 mg/dL (70-99) H 107 mg/dL (70-99) H 270 mg/dL (70-99) H 317 mg/dL (70-99) H Current Medications: Meds: Current Medications Acetaminophen (Tylenol) 650 mg PRN Q6HRS PRN PO PAIN / TEMP; Start 07/16/18 at 06:15; Status Cancel Multi-Ingredient Ointment (Analgesic Stratton) 1 raquel PRN QID PRN TP MUSCLE PAIN; Start 07/16/18 at 06:15 Al Hydroxide/Mg Hydroxide (Mylanta Plus Xs) 15 ml PRN AFTMEALHC PRN PO DYSPEPSIA; Start 07/16/18 at 06:15 Magnesium Hydroxide (Milk Of Magnesia) 2,400 mg PRN QHS PRN PO CONSTIPATION; Start 07/16/18 at 06:15; Status Cancel Acetaminophen (Tylenol) 650 mg PRN Q6HRS PRN PO PAIN / TEMP Last administered on 07/22/18at 08:33; Start 07/16/18 at 06:45 Gabapentin (Neurontin) 100 mg TIDWMEALS PO Last administered on 07/25/18at 17:48 ; Start 07/16/18 at 08:00 Potassium Chloride (Klor-Con) 20 meq BIDWMEALS PO Last administered on at 17:48; Start 07/16/18 at 08:00 Tramadol HCl (Ultram) 50 mg PRN BID PRN PO PAIN Last administered on 07/19/18 21:31; Start 07/16/18 at 06:45; Stop 07/20/18 at 10:41; Status DC Buspirone HCl (Buspar) 10 mg DAILY PO Last administered on 07/25/18 08:45; Start 07/16/18 at 09:00 Divalproex Sodium (Depakote) 500 mg BID PO Last administered on 07/25/18 21:04 ; Start 07/16/18 at 09:00 Docusate Sodium (Colace) 200 mg DAILY PO Last administered on 07/25/18 08:51; Start 07/16/18 at 09:00 Folic Acid (Folic Acid) 1 mg DAILY PO Last administered on 07/25/18 08:47; Start 07/16/18 at 09:00 Furosemide (Lasix) 60 mg BIDACBL PO Last administered on 07/18/18 12:45; Start 07/16/18 at 07:30; Stop 07/18/18 at 17:37; Status DC Hydralazine HCl (Apresoline) 25 mg TID PO Last administered on 07/18/18 14:09 ; Start 07/16/18 at 09:00; Stop 07/18/18 at 17:37; Status DC Losartan Potassium (Cozaar) 100 mg DAILY PO Last administered on 07/18/18 09: 35; Start 07/16/18 at 09:00; Stop 07/18/18 at 17:37; Status DC Magnesium Hydroxide (Milk Of Magnesia) 2,400 mg PRN DAILY PRN PO CONSTIPATION Last administered on 07/24/18 20:37; Start 07/16/18 at 06:45 Medroxyprogesterone Acetate (Provera) 10 mg DAILY PO Last administered on 10:47; Start 07/16/18 at 09:00; Stop 07/16/18 at 18:37; Status DC Melatonin 3 mg QHS PO Last administered on 07/25/18 21:05; Start 07/16/18 at 21 :00 Metoprolol Succinate (Toprol Xl) 100 mg DAILY PO Last administered on 3/17/ 19at 08:42; Start 07/16/18 at 09:00 Multivitamins/ Calcium (Thera-M Plus) 1 tab DAILY PO Last administered on at 08:39; Start 07/16/18 at 09:00 Ondansetron HCl (Zofran Odt) 4 mg PRN Q6HRS PRN PO NAUSEA/VOMITING; Start at 06:45 Quetiapine Fumarate (SEROquel) 25 mg HS PO Last administered on 07/25/18at 21:06 ; Start 07/16/18 at 21:00 Thiamine HCl (Vitamin B-1) 100 mg DAILY PO Last administered on 07/25/18at 08:52 ; Start 07/16/18 at 09:00 Trazodone HCl (Desyrel) 150 mg QHS PO Last administered on 07/25/18at 21:06; Start 07/16/18 at 21:00 Triamcinolone Acetonide (Kenalog) 1 raquel PRN DAILY PRN TP RASH; Start 07/16/18 at 09:00 Lidocaine (Xylocaine) 1 raquel PRN DAILY PRN TP .; Start 07/16/18 at 09:00 Insulin Human Lispro (HumaLOG) sliding scale Bl... TIDAC SQ Last administered on 07/25/18at 17:46; Start 07/16/18 at 11:30 Insulin Human Lispro (HumaLOG) blood sugar 70-15,0/0 units... HS SQ Last administered on 07/16/18 21:16; Start 07/16/18 at 21:00; Stop 07/17/18 at 16:24; Status DC Medroxyprogesterone Acetate (Provera) 15 mg DAILY PO Last administered on at 08:47; Start 07/17/18 at 09:00 Olanzapine (ZyPREXA IM) 5 mg 1X ONCE IM Last administered on 07/16/18 21:55; Start 07/16/18 at 22:00; Stop 07/16/18 at 22:01; Status DC Olanzapine (ZyPREXA ZYDIS) 2.5 mg PRN Q2HR PRN PO ANXIETY / AGITATION Last administered on 07/21/18 08:30; Start 07/16/18 at 21:45 Insulin Human Lispro (HumaLOG) 6 units TIDAC SQ Last administered on 07/22/18 18:19; Start 07/17/18 at 16:30; Stop 07/22/18 at 19:21; Status DC Insulin Glargine (Lantus) 20 units QHS SQ Last administered on 07/21/18at 20:56 ; Start 07/17/18 at 21:00; Stop 07/22/18 at 19:21; Status DC Furosemide (Lasix) 40 mg BIDACBL PO Last administered on 07/25/18at 13:17; Start 07/19/18 at 07:30 Hydralazine HCl (Apresoline) 50 mg TID PO Last administered on 07/25/18at 21:06 ; Start 07/18/18 at 21:00 Losartan Potassium (Cozaar) 25 mg DAILY PO Last administered on 07/25/18at 08:51 ; Start 07/19/18 at 09:00 Duloxetine HCl (Cymbalta) 30 mg DAILY PO Last administered on 07/25/18at 09:01; Start 07/20/18 at 09:00 Tramadol HCl (Ultram) 50 mg DAILY PRN PO PAIN; Start 07/20/18 at 10:45 Tramadol HCl (Ultram) 50 mg QHS PO Last administered on 07/25/18at 21:04; Start 07/20/18 at 21:00 Insulin Glargine (Lantus) 30 units QHS SQ Last administered on 07/25/18at 21:07 ; Start 07/22/18 at 21:00 Insulin Human Lispro (HumaLOG) 10 units TIDAC SQ Last administered on at 17:47; Start 07/23/18 at 07:30 Active Scripts Active Reported Humalog (Insulin Lispro) 100 Unit/1 Ml Vial 0-3 Unit SQ HS per s/s if not eating: BS 70-200 = 0 units BS 201-250 = 2 units BS 251-300 = 3 units Depakote (Divalproex Sodium) 500 Mg Tablet.dr 500 Mg PO BID Cefpodoxime Proxetil 200 Mg Tablet 200 Mg PO BID Seroquel (Quetiapine Fumarate) 25 Mg Tablet 25 Mg PO HS Triamcinolone Acetonide 15 Gm Cream..g. 1 Raquel TP PRN DAILY PRN Ondansetron Odt (Ondansetron) 4 Mg Tab.rapdis 4 Mg PO PRN Q6HRS PRN Furosemide 40 Mg Tablet 60 Mg PO BIDACBL Acetaminophen 325 Mg Tablet 650 Mg PO PRN Q6HRS PRN Tramadol Hcl (Tramadol HCl) 50 Mg Tablet 50 Mg PO PRN BID PRN [Lidocaine Oint 5%] 1 Raquel TP PRN DAILY Apply to heel prior to wound debridement. One Daily Plus Minerals (Multivitamin With Minerals) 1 Each Tablet 1 Tab PO DAILY Losartan Potassium 100 Mg Tablet 100 Mg PO DAILY Metoprolol Succinate ( Xl ) (Metoprolol Succinate) 100 Mg Tab.er.24h 100 Mg PO DAILY Docusate Sodium 100 Mg Capsule 200 Mg PO DAILY Humalog (Insulin Lispro) 100 Unit/1 Ml Cartridge 0-7 Unit SQ TIDAC For BG <70 units, notify provider IF EATING IF NOT EATING B-150 0 units 0 units B-200 3 units 0 units B-250 4 units 2 units B-300 6 units 3 units B-350 7 units 4 units BG <60 or >351 notify provider Trazodone Hcl 150 Mg Tablet 1 Tab PO QHS Medroxyprogesterone Acetate 10 Mg Tablet 1 Tab PO DAILY Hydralazine Hcl 25 Mg Tablet 1 Tab PO TID Buspirone Hcl 10 Mg Tablet 1 Tab PO DAILY Klor-Con M20 (Potassium Chloride) 20 Meq Tab.er.prt 1 Tab PO BIDWMEALS Melatonin 3 Mg Tablet 1 Tab PO QHS Milk Of Magnesia (Magnesium Hydroxide) 2,400 Mg/10 Ml Oral.susp 2,400 Mg PO PRN DAILY PRN Thiamine Hcl 100 Mg Tablet 100 Mg PO DAILY Folic Acid 1 Mg Tablet 1 Tab PO DAILY Gabapentin (Gabapentin) 100 Mg Capsule 100 Mg PO TIDWMEALS I have reviewed the current psychotropics carefully including drug interactions. Risk benefit ratio favors no change other than as noted in my dictated progress note. Diagnosis: Problems: (1) Anxiety disorder (2) Impulse control disorder (3) Bipolar affective disorder, mixed (4) Dementia, vascular, with delusions (5) Dementia with behavioral disturbance LIZ DIANE MD Jul 25, 2018 22:43
--- NOTE | 2018-07-25 23:38 | PN ---
DATE: 07/25/2018 SUBJECTIVE: The patient was seen today, met with the staff, chart reviewed. Staff reports no major problems, no complaints today. OBSERVATION: VITAL SIGNS: Temperature 97.2, blood pressure 138/76, pulse 71, respirations 16, O2 sat 97%. Slept about 5 hours last night. MEDICATIONS: The patient's current medications include Seroquel, melatonin, Depakote, BuSpar, gabapentin, tramadol, and Cymbalta. ASSESSMENT: Major depressive disorder, impulse control disorder, unspecified. PLAN: To continue with the treatment. WILI FREEMAN MD DR: KEISHA/nts JOB#: [id number] / [id number]
[2018-07-26 06:30] VITALS: BP 133/77
[2018-07-26] MEDS: DIVALPROEX SODIUM 250 MG TABLET.DR. PO SCH ×2 (07:27→20:29)
[2018-07-26] MEDS: busPIRone 10 MG TABLET. PO SCH (07:27)
[2018-07-26] MEDS: POTASSIUM CHLORIDE 20 MEQ TABLET.ER. PO SCH ×2 (07:28→16:30)
[2018-07-26] MEDS: LOSARTAN 25 MG TABLET. PO SCH (07:28)
[2018-07-26] MEDS: MULTIVITAMIN with MINERAL TABLET. PO SCH (07:28)
[2018-07-26] MEDS: FOLIC ACID 1 MG TABLET PO SCH (07:28)
[2018-07-26] MEDS: DOCUSATE SODIUM 100 MG CAPSULE PO SCH (07:28)
[2018-07-26] MEDS: THIAMINE 100 MG TABLET. PO SCH (07:29)
[2018-07-26] MEDS: METOPROLOL SUCC 24HR ER 50 MG TAB.ER.24H. PO SCH (07:30)
[2018-07-26] MEDS: FUROSEMIDE 40 MG TABLET PO SCH ×2 (07:30→11:16)
[2018-07-26] MEDS: INSULIN LISPRO 300 UNITS/3 ML INSULN.PEN. SQ SCH ×6 (07:30→17:23)
[2018-07-26] MEDS: GABAPENTIN 100 MG CAPSULE. PO SCH ×3 (08:19→16:30)
[2018-07-26] MEDS: DULoxetine HCL 30 MG CAPSULE.DR PO SCH (08:19)
[2018-07-26] MEDS: medroxyPROGESTERone 5 MG TABLET PO SCH (08:19)
[2018-07-26 17:39] VITALS: BP 125/56
[2018-07-26] MEDS: traZODone 150 MG TABLET. PO SCH (20:29)
[2018-07-26] MEDS: QUEtiapine 25 MG TABLET. PO SCH (20:29)
[2018-07-26] MEDS: MELATONIN 3 MG TABLET PO SCH (20:29)
[2018-07-26] MEDS: traMADol 50 MG TABLET PO SCH (20:33)
[2018-07-26] MEDS: INSULIN GLARGINE 300 UNITS/3 ML INSULN.PEN. SQ SCH (20:34)
--- NOTE | 2018-07-26 22:18 | PDOC ---
Exam Note: Adriano Note: "This is a late entry for 07/25/18. The template note for 07/25/18 was completed in error and should be disregarded." Please also refer to the separate dictated note~for this date of service dictated separately.~Patient seen individually. Discussed the patient with Nursing staff reviewed the chart.~ Reviewed interim history and current functioning. Reviewed vital signs,~Labs/ Radiology~and current medications noted below. Continue current treatment with the changes noted in the dictated addendum note Assessment: Vital Signs: Vital Signs Date Time Temp Pulse Resp B/P (MAP) Pulse Ox O2 Delivery O2 Flow Rate FiO2 07/26/18 21:44 18 97 Room Air 07/26/18 20:30 66 125/56 07/26/18 17:39 98.0 I&O Intake and Output 07/26/18 07:00 Intake Total 720 ml Balance 720 ml Intake Oral 720 ml # Bowel Movements 1 Labs: Laboratory Tests Test 07/26/18 07:47 07/26/18 11:56 07/26/18 14:04 07/26/18 17:15 Glucose (Fingerstick) 150 mg/dL (70-99) H 94 mg/dL (70-99) 170 mg/dL (70-99) H 260 mg/dL (70-99) H Test 07/26/18 19:23 Glucose (Fingerstick) 337 mg/dL (70-99) H Current Medications: Meds: Current Medications Acetaminophen (Tylenol) 650 mg PRN Q6HRS PRN PO PAIN / TEMP; Start 07/16/18 at 06:15; Status Cancel Multi-Ingredient Ointment (Analgesic [place]) 1 raquel PRN QID PRN TP MUSCLE PAIN; Start 07/16/18 at 06:15 Al Hydroxide/Mg Hydroxide (Mylanta Plus Xs) 15 ml PRN AFTMEALHC PRN PO DYSPEPSIA; Start 07/16/18 at 06:15 Magnesium Hydroxide (Milk Of Magnesia) 2,400 mg PRN QHS PRN PO CONSTIPATION; Start 07/16/18 at 06:15; Status Cancel Acetaminophen (Tylenol) 650 mg PRN Q6HRS PRN PO PAIN / TEMP Last administered on 07/22/18at 08:33; Start 07/16/18 at 06:45 Gabapentin (Neurontin) 100 mg TIDWMEALS PO Last administered on 07/26/18 16:30 ; Start 07/16/18 at 08:00 Potassium Chloride (Klor-Con) 20 meq BIDWMEALS PO Last administered on 16:30; Start 07/16/18 at 08:00 Tramadol HCl (Ultram) 50 mg PRN BID PRN PO PAIN Last administered on 07/19/18 21:31; Start 07/16/18 at 06:45; Stop 07/20/18 at 10:41; Status DC Buspirone HCl (Buspar) 10 mg DAILY PO Last administered on 07/26/18 07:27; Start 07/16/18 at 09:00 Divalproex Sodium (Depakote) 500 mg BID PO Last administered on 07/26/18 20:29 ; Start 07/16/18 at 09:00 Docusate Sodium (Colace) 200 mg DAILY PO Last administered on 07/26/18 07:28; Start 07/16/18 at 09:00 Folic Acid (Folic Acid) 1 mg DAILY PO Last administered on 07/26/18 07:28; Start 07/16/18 at 09:00 Furosemide (Lasix) 60 mg BIDACBL PO Last administered on 07/18/18 12:45; Start 07/16/18 at 07:30; Stop 07/18/18 at 17:37; Status DC Hydralazine HCl (Apresoline) 25 mg TID PO Last administered on 07/18/18 14:09 ; Start 07/16/18 at 09:00; Stop 07/18/18 at 17:37; Status DC Losartan Potassium (Cozaar) 100 mg DAILY PO Last administered on 07/18/18 09: 35; Start 07/16/18 at 09:00; Stop 07/18/18 at 17:37; Status DC Magnesium Hydroxide (Milk Of Magnesia) 2,400 mg PRN DAILY PRN PO CONSTIPATION Last administered on 07/24/18 20:37; Start 07/16/18 at 06:45 Medroxyprogesterone Acetate (Provera) 10 mg DAILY PO Last administered on 10:47; Start 07/16/18 at 09:00; Stop 07/16/18 at 18:37; Status DC Melatonin 3 mg QHS PO Last administered on 07/26/18 20:29; Start 07/16/18 at 21 :00 Metoprolol Succinate (Toprol Xl) 100 mg DAILY PO Last administered on at 07:30; Start 07/16/18 at 09:00 Multivitamins/ Calcium (Thera-M Plus) 1 tab DAILY PO Last administered on 07:28; Start 07/16/18 at 09:00 Ondansetron HCl (Zofran Odt) 4 mg PRN Q6HRS PRN PO NAUSEA/VOMITING; Start at 06:45 Quetiapine Fumarate (SEROquel) 25 mg HS PO Last administered on 07/26/18 20:29 ; Start 07/16/18 at 21:00 Thiamine HCl (Vitamin B-1) 100 mg DAILY PO Last administered on 07/26/18at 07:29 ; Start 07/16/18 at 09:00 Trazodone HCl (Desyrel) 150 mg QHS PO Last administered on 07/26/18 20:29; Start 07/16/18 at 21:00 Triamcinolone Acetonide (Kenalog) 1 raquel PRN DAILY PRN TP RASH; Start 07/16/18 at 09:00 Lidocaine (Xylocaine) 1 raquel PRN DAILY PRN TP .; Start 07/16/18 at 09:00 Insulin Human Lispro (HumaLOG) sliding scale Bl... TIDAC SQ Last administered on 07/26/18 17:22; Start 07/16/18 at 11:30 Insulin Human Lispro (HumaLOG) blood sugar 70-15,0/0 units... HS SQ Last administered on 07/16/18 21:16; Start 07/16/18 at 21:00; Stop 07/17/18 at 16:24; Status DC Medroxyprogesterone Acetate (Provera) 15 mg DAILY PO Last administered on 08:19; Start 07/17/18 at 09:00 Olanzapine (ZyPREXA IM) 5 mg 1X ONCE IM Last administered on 07/16/18 21:55; Start 07/16/18 at 22:00; Stop 07/16/18 at 22:01; Status DC Olanzapine (ZyPREXA ZYDIS) 2.5 mg PRN Q2HR PRN PO ANXIETY / AGITATION Last administered on 07/21/18 08:30; Start 07/16/18 at 21:45 Insulin Human Lispro (HumaLOG) 6 units TIDAC SQ Last administered on 07/22/18 18:19; Start 07/17/18 at 16:30; Stop 07/22/18 at 19:21; Status DC Insulin Glargine (Lantus) 20 units QHS SQ Last administered on 07/21/18 20:56 ; Start 07/17/18 at 21:00; Stop 07/22/18 at 19:21; Status DC Furosemide (Lasix) 40 mg BIDACBL PO Last administered on 07/26/18 11:16; Start 07/19/18 at 07:30 Hydralazine HCl (Apresoline) 50 mg TID PO Last administered on 07/26/18 20:30 ; Start 07/18/18 at 21:00 Losartan Potassium (Cozaar) 25 mg DAILY PO Last administered on 07/26/18at 07:28 ; Start 07/19/18 at 09:00 Duloxetine HCl (Cymbalta) 30 mg DAILY PO Last administered on 07/26/18 08:19; Start 07/20/18 at 09:00 Tramadol HCl (Ultram) 50 mg DAILY PRN PO PAIN; Start 07/20/18 at 10:45 Tramadol HCl (Ultram) 50 mg QHS PO Last administered on 07/26/18 20:33; Start 07/20/18 at 21:00 Insulin Glargine (Lantus) 30 units QHS SQ Last administered on 07/26/18 20:34 ; Start 07/22/18 at 21:00 Insulin Human Lispro (HumaLOG) 10 units TIDAC SQ Last administered on 17:23; Start 07/23/18 at 07:30 Active Scripts Active Reported Humalog (Insulin Lispro) 100 Unit/1 Ml Vial 0-3 Unit SQ HS per s/s if not eating: BS 70-200 = 0 units BS 201-250 = 2 units BS 251-300 = 3 units Depakote (Divalproex Sodium) 500 Mg Tablet.dr 500 Mg PO BID Cefpodoxime Proxetil 200 Mg Tablet 200 Mg PO BID Seroquel (Quetiapine Fumarate) 25 Mg Tablet 25 Mg PO HS Triamcinolone Acetonide 15 Gm Cream..g. 1 Raquel TP PRN DAILY PRN Ondansetron Odt (Ondansetron) 4 Mg Tab.rapdis 4 Mg PO PRN Q6HRS PRN Furosemide 40 Mg Tablet 60 Mg PO BIDACBL Acetaminophen 325 Mg Tablet 650 Mg PO PRN Q6HRS PRN Tramadol Hcl (Tramadol HCl) 50 Mg Tablet 50 Mg PO PRN BID PRN [Lidocaine Oint 5%] 1 Raquel TP PRN DAILY Apply to heel prior to wound debridement. One Daily Plus Minerals (Multivitamin With Minerals) 1 Each Tablet 1 Tab PO DAILY Losartan Potassium 100 Mg Tablet 100 Mg PO DAILY Metoprolol Succinate ( Xl ) (Metoprolol Succinate) 100 Mg Tab.er.24h 100 Mg PO DAILY Docusate Sodium 100 Mg Capsule 200 Mg PO DAILY Humalog (Insulin Lispro) 100 Unit/1 Ml Cartridge 0-7 Unit SQ TIDAC For BG <70 units, notify provider IF EATING IF NOT EATING B-150 0 units 0 units B-200 3 units 0 units B-250 4 units 2 units B-300 6 units 3 units B-350 7 units 4 units BG <60 or >351 notify provider Trazodone Hcl 150 Mg Tablet 1 Tab PO QHS Medroxyprogesterone Acetate 10 Mg Tablet 1 Tab PO DAILY Hydralazine Hcl 25 Mg Tablet 1 Tab PO TID Buspirone Hcl 10 Mg Tablet 1 Tab PO DAILY Klor-Con M20 (Potassium Chloride) 20 Meq Tab.er.prt 1 Tab PO BIDWMEALS Melatonin 3 Mg Tablet 1 Tab PO QHS Milk Of Magnesia (Magnesium Hydroxide) 2,400 Mg/10 Ml Oral.susp 2,400 Mg PO PRN DAILY PRN Thiamine Hcl 100 Mg Tablet 100 Mg PO DAILY Folic Acid 1 Mg Tablet 1 Tab PO DAILY Gabapentin (Gabapentin) 100 Mg Capsule 100 Mg PO TIDWMEALS I have reviewed the current psychotropics carefully including drug interactions. Risk benefit ratio favors no change other than as noted in my dictated progress note. Diagnosis: Problems: (1) Anxiety disorder (2) Impulse control disorder (3) Bipolar affective disorder, mixed (4) Dementia, vascular, with delusions (5) Dementia with behavioral disturbance LIZ DIANE MD Jul 26, 2018 22:17
--- NOTE | 2018-07-26 23:05 | PDOC ---
Exam Note: Adriano Note: Please also refer to the separate dictated note~for this date of service dictated separately.~Patient seen individually. Discussed the patient with Nursing staff reviewed the chart.~Reviewed interim history and current functioning. Reviewed vital signs,~Labs/ Radiology~and current medications noted below. Continue current treatment with the changes noted in the dictated addendum note Assessment: Vital Signs: Vital Signs Date Time Temp Pulse Resp B/P (MAP) Pulse Ox O2 Delivery O2 Flow Rate FiO2 07/26/18 21:44 18 97 Room Air 07/26/18 20:30 66 125/56 07/26/18 17:39 98.0 I&O Intake and Output 07/26/18 07:00 Intake Total 720 ml Balance 720 ml Intake Oral 720 ml # Bowel Movements 1 Labs: Laboratory Tests Test 07/26/18 07:47 07/26/18 11:56 07/26/18 14:04 07/26/18 17:15 Glucose (Fingerstick) 150 mg/dL (70-99) H 94 mg/dL (70-99) 170 mg/dL (70-99) H 260 mg/dL (70-99) H Test 07/26/18 19:23 Glucose (Fingerstick) 337 mg/dL (70-99) H Current Medications: Meds: Current Medications Acetaminophen (Tylenol) 650 mg PRN Q6HRS PRN PO PAIN / TEMP; Start 07/16/18 at 06:15; Status Cancel Multi-Ingredient Ointment (Analgesic [place]) 1 raquel PRN QID PRN TP MUSCLE PAIN; Start 07/16/18 at 06:15 Al Hydroxide/Mg Hydroxide (Mylanta Plus Xs) 15 ml PRN AFTMEALHC PRN PO DYSPEPSIA; Start 07/16/18 at 06:15 Magnesium Hydroxide (Milk Of Magnesia) 2,400 mg PRN QHS PRN PO CONSTIPATION; Start 07/16/18 at 06:15; Status Cancel Acetaminophen (Tylenol) 650 mg PRN Q6HRS PRN PO PAIN / TEMP Last administered on 07/22/18at 08:33; Start 07/16/18 at 06:45 Gabapentin (Neurontin) 100 mg TIDWMEALS PO Last administered on 07/26/18at 16:30 ; Start 07/16/18 at 08:00 Potassium Chloride (Klor-Con) 20 meq BIDWMEALS PO Last administered on 16:30; Start 07/16/18 at 08:00 Tramadol HCl (Ultram) 50 mg PRN BID PRN PO PAIN Last administered on 07/19/18 21:31; Start 07/16/18 at 06:45; Stop 07/20/18 at 10:41; Status DC Buspirone HCl (Buspar) 10 mg DAILY PO Last administered on 07/26/18 07:27; Start 07/16/18 at 09:00 Divalproex Sodium (Depakote) 500 mg BID PO Last administered on 07/26/18 20:29 ; Start 07/16/18 at 09:00 Docusate Sodium (Colace) 200 mg DAILY PO Last administered on 07/26/18 07:28; Start 07/16/18 at 09:00 Folic Acid (Folic Acid) 1 mg DAILY PO Last administered on 07/26/18 07:28; Start 07/16/18 at 09:00 Furosemide (Lasix) 60 mg BIDACBL PO Last administered on 07/18/18 12:45; Start 07/16/18 at 07:30; Stop 07/18/18 at 17:37; Status DC Hydralazine HCl (Apresoline) 25 mg TID PO Last administered on 07/18/18 14:09 ; Start 07/16/18 at 09:00; Stop 07/18/18 at 17:37; Status DC Losartan Potassium (Cozaar) 100 mg DAILY PO Last administered on 07/18/18 09: 35; Start 07/16/18 at 09:00; Stop 07/18/18 at 17:37; Status DC Magnesium Hydroxide (Milk Of Magnesia) 2,400 mg PRN DAILY PRN PO CONSTIPATION Last administered on 07/24/18 20:37; Start 07/16/18 at 06:45 Medroxyprogesterone Acetate (Provera) 10 mg DAILY PO Last administered on 10:47; Start 07/16/18 at 09:00; Stop 07/16/18 at 18:37; Status DC Melatonin 3 mg QHS PO Last administered on 07/26/18 20:29; Start 07/16/18 at 21 :00 Metoprolol Succinate (Toprol Xl) 100 mg DAILY PO Last administered on 07:30; Start 07/16/18 at 09:00 Multivitamins/ Calcium (Thera-M Plus) 1 tab DAILY PO Last administered on 07:28; Start 07/16/18 at 09:00 Ondansetron HCl (Zofran Odt) 4 mg PRN Q6HRS PRN PO NAUSEA/VOMITING; Start at 06:45 Quetiapine Fumarate (SEROquel) 25 mg HS PO Last administered on 07/26/18 20:29 ; Start 07/16/18 at 21:00 Thiamine HCl (Vitamin B-1) 100 mg DAILY PO Last administered on 07/26/18 07:29 ; Start 07/16/18 at 09:00 Trazodone HCl (Desyrel) 150 mg QHS PO Last administered on 07/26/18 20:29; Start 07/16/18 at 21:00 Triamcinolone Acetonide (Kenalog) 1 raquel PRN DAILY PRN TP RASH; Start 07/16/18 at 09:00 Lidocaine (Xylocaine) 1 raquel PRN DAILY PRN TP .; Start 07/16/18 at 09:00 Insulin Human Lispro (HumaLOG) sliding scale Bl... TIDAC SQ Last administered on 07/26/18 17:22; Start 07/16/18 at 11:30 Insulin Human Lispro (HumaLOG) blood sugar 70-15,0/0 units... HS SQ Last administered on 07/16/18 21:16; Start 07/16/18 at 21:00; Stop 07/17/18 at 16:24; Status DC Medroxyprogesterone Acetate (Provera) 15 mg DAILY PO Last administered on 08:19; Start 07/17/18 at 09:00 Olanzapine (ZyPREXA IM) 5 mg 1X ONCE IM Last administered on 07/16/18 21:55; Start 07/16/18 at 22:00; Stop 07/16/18 at 22:01; Status DC Olanzapine (ZyPREXA ZYDIS) 2.5 mg PRN Q2HR PRN PO ANXIETY / AGITATION Last administered on 3/13/19at 08:30; Start 07/16/18 at 21:45 Insulin Human Lispro (HumaLOG) 6 units TIDAC SQ Last administered on 07/22/18 18:19; Start 07/17/18 at 16:30; Stop 07/22/18 at 19:21; Status DC Insulin Glargine (Lantus) 20 units QHS SQ Last administered on 07/21/18 20:56 ; Start 07/17/18 at 21:00; Stop 07/22/18 at 19:21; Status DC Furosemide (Lasix) 40 mg BIDACBL PO Last administered on 07/26/18 11:16; Start 07/19/18 at 07:30 Hydralazine HCl (Apresoline) 50 mg TID PO Last administered on 07/26/18 20:30 ; Start 07/18/18 at 21:00 Losartan Potassium (Cozaar) 25 mg DAILY PO Last administered on 07/26/18 07:28 ; Start 07/19/18 at 09:00 Duloxetine HCl (Cymbalta) 30 mg DAILY PO Last administered on 07/26/18at 08:19; Start 07/20/18 at 09:00 Tramadol HCl (Ultram) 50 mg DAILY PRN PO PAIN; Start 07/20/18 at 10:45 Tramadol HCl (Ultram) 50 mg QHS PO Last administered on 07/26/18at 20:33; Start 07/20/18 at 21:00 Insulin Glargine (Lantus) 30 units QHS SQ Last administered on 07/26/18 20:34 ; Start 07/22/18 at 21:00 Insulin Human Lispro (HumaLOG) 10 units TIDAC SQ Last administered on at 17:23; Start 07/23/18 at 07:30 Active Scripts Active Reported Humalog (Insulin Lispro) 100 Unit/1 Ml Vial 0-3 Unit SQ HS per s/s if not eating: BS 70-200 = 0 units BS 201-250 = 2 units BS 251-300 = 3 units Depakote (Divalproex Sodium) 500 Mg Tablet.dr 500 Mg PO BID Cefpodoxime Proxetil 200 Mg Tablet 200 Mg PO BID Seroquel (Quetiapine Fumarate) 25 Mg Tablet 25 Mg PO HS Triamcinolone Acetonide 15 Gm Cream..g. 1 Raquel TP PRN DAILY PRN Ondansetron Odt (Ondansetron) 4 Mg Tab.rapdis 4 Mg PO PRN Q6HRS PRN Furosemide 40 Mg Tablet 60 Mg PO BIDACBL Acetaminophen 325 Mg Tablet 650 Mg PO PRN Q6HRS PRN Tramadol Hcl (Tramadol HCl) 50 Mg Tablet 50 Mg PO PRN BID PRN [Lidocaine Oint 5%] 1 Raquel TP PRN DAILY Apply to heel prior to wound debridement. One Daily Plus Minerals (Multivitamin With Minerals) 1 Each Tablet 1 Tab PO DAILY Losartan Potassium 100 Mg Tablet 100 Mg PO DAILY Metoprolol Succinate ( Xl ) (Metoprolol Succinate) 100 Mg Tab.er.24h 100 Mg PO DAILY Docusate Sodium 100 Mg Capsule 200 Mg PO DAILY Humalog (Insulin Lispro) 100 Unit/1 Ml Cartridge 0-7 Unit SQ TIDAC For BG <70 units, notify provider IF EATING IF NOT EATING B-150 0 units 0 units B-200 3 units 0 units B-250 4 units 2 units B-300 6 units 3 units B-350 7 units 4 units BG <60 or >351 notify provider Trazodone Hcl 150 Mg Tablet 1 Tab PO QHS Medroxyprogesterone Acetate 10 Mg Tablet 1 Tab PO DAILY Hydralazine Hcl 25 Mg Tablet 1 Tab PO TID Buspirone Hcl 10 Mg Tablet 1 Tab PO DAILY Klor-Con M20 (Potassium Chloride) 20 Meq Tab.er.prt 1 Tab PO BIDWMEALS Melatonin 3 Mg Tablet 1 Tab PO QHS Milk Of Magnesia (Magnesium Hydroxide) 2,400 Mg/10 Ml Oral.susp 2,400 Mg PO PRN DAILY PRN Thiamine Hcl 100 Mg Tablet 100 Mg PO DAILY Folic Acid 1 Mg Tablet 1 Tab PO DAILY Gabapentin (Gabapentin) 100 Mg Capsule 100 Mg PO TIDWMEALS I have reviewed the current psychotropics carefully including drug interactions. Risk benefit ratio favors no change other than as noted in my dictated progress note. Diagnosis: Problems: (1) Anxiety disorder (2) Impulse control disorder (3) Bipolar affective disorder, mixed (4) Dementia, vascular, with delusions (5) Dementia with behavioral disturbance LIZ DIANE MD Jul 26, 2018 23:05
[2018-07-27 06:26] VITALS: BP 142/72
[2018-07-27] MEDS: DOCUSATE SODIUM 100 MG CAPSULE PO SCH (08:33)
[2018-07-27] MEDS: FOLIC ACID 1 MG TABLET PO SCH (08:33)
[2018-07-27] MEDS: DULoxetine HCL 30 MG CAPSULE.DR PO SCH (08:33)
[2018-07-27] MEDS: THIAMINE 100 MG TABLET. PO SCH (08:33)
[2018-07-27] MEDS: medroxyPROGESTERone 5 MG TABLET PO SCH (08:34)
[2018-07-27] MEDS: FUROSEMIDE 40 MG TABLET PO SCH ×2 (08:34→11:03)
[2018-07-27] MEDS: METOPROLOL SUCC 24HR ER 50 MG TAB.ER.24H. PO SCH (08:34)
[2018-07-27] MEDS: DIVALPROEX SODIUM 250 MG TABLET.DR. PO SCH ×2 (08:34→20:24)
[2018-07-27] MEDS: MULTIVITAMIN with MINERAL TABLET. PO SCH (08:35)
[2018-07-27] MEDS: POTASSIUM CHLORIDE 20 MEQ TABLET.ER. PO SCH ×2 (08:35→16:53)
[2018-07-27] MEDS: busPIRone 10 MG TABLET. PO SCH (08:35)
[2018-07-27] MEDS: LOSARTAN 25 MG TABLET. PO SCH (08:35)
[2018-07-27] MEDS: GABAPENTIN 100 MG CAPSULE. PO SCH ×3 (08:37→16:53)
[2018-07-27] MEDS: INSULIN LISPRO 300 UNITS/3 ML INSULN.PEN. SQ SCH ×7 (08:52→18:06)
[2018-07-27 16:29] VITALS: BP 138/64
[2018-07-27] MEDS: MELATONIN 3 MG TABLET PO SCH (20:24)
[2018-07-27] MEDS: QUEtiapine 25 MG TABLET. PO SCH (20:24)
[2018-07-27] MEDS: traZODone 150 MG TABLET. PO SCH (20:25)
[2018-07-27] MEDS: traMADol 50 MG TABLET PO SCH (20:28)
[2018-07-27] MEDS: INSULIN GLARGINE 300 UNITS/3 ML INSULN.PEN. SQ SCH (20:29)
--- NOTE | 2018-07-27 22:46 | PDOC ---
Exam Note: Adriano Note: Please also refer to the separate dictated note~for this date of service dictated separately.~Patient seen individually. Discussed the patient with Nursing staff reviewed the chart.~Reviewed interim history and current functioning. Reviewed vital signs,~Labs/ Radiology~and current medications noted below. Continue current treatment with the changes noted in the dictated addendum note Assessment: Vital Signs: Vital Signs Date Time Temp Pulse Resp B/P (MAP) Pulse Ox O2 Delivery O2 Flow Rate FiO2 07/27/18 20:28 18 07/27/18 20:25 71 138/64 07/27/18 16:29 97.5 98 Room Air I&O Intake and Output 07/27/18 07:00 Intake Total 720 ml Balance 720 ml Intake Oral 720 ml Labs: Laboratory Tests Test 07/27/18 07:17 07/27/18 11:34 07/27/18 16:29 07/27/18 19:08 Glucose (Fingerstick) 209 mg/dL (70-99) H 312 mg/dL (70-99) H 328 mg/dL (70-99) H 212 mg/dL (70-99) H Current Medications: Meds: Current Medications Acetaminophen (Tylenol) 650 mg PRN Q6HRS PRN PO PAIN / TEMP; Start 07/16/18 at 06:15; Status Cancel Multi-Ingredient Ointment (Analgesic [place]) 1 raquel PRN QID PRN TP MUSCLE PAIN; Start 07/16/18 at 06:15 Al Hydroxide/Mg Hydroxide (Mylanta Plus Xs) 15 ml PRN AFTMEALHC PRN PO DYSPEPSIA; Start 07/16/18 at 06:15 Magnesium Hydroxide (Milk Of Magnesia) 2,400 mg PRN QHS PRN PO CONSTIPATION; Start 07/16/18 at 06:15; Status Cancel Acetaminophen (Tylenol) 650 mg PRN Q6HRS PRN PO PAIN / TEMP Last administered on 07/22/18at 08:33; Start 07/16/18 at 06:45 Gabapentin (Neurontin) 100 mg TIDWMEALS PO Last administered on 07/27/18at 16:53 ; Start 07/16/18 at 08:00 Potassium Chloride (Klor-Con) 20 meq BIDWMEALS PO Last administered on at 16:53; Start 07/16/18 at 08:00 Tramadol HCl (Ultram) 50 mg PRN BID PRN PO PAIN Last administered on 07/19/18 21:31; Start 07/16/18 at 06:45; Stop 07/20/18 at 10:41; Status DC Buspirone HCl (Buspar) 10 mg DAILY PO Last administered on 07/27/18 08:35; Start 07/16/18 at 09:00 Divalproex Sodium (Depakote) 500 mg BID PO Last administered on 07/27/18 20:24 ; Start 07/16/18 at 09:00 Docusate Sodium (Colace) 200 mg DAILY PO Last administered on 07/27/18 08:33; Start 07/16/18 at 09:00 Folic Acid (Folic Acid) 1 mg DAILY PO Last administered on 07/27/18 08:33; Start 07/16/18 at 09:00 Furosemide (Lasix) 60 mg BIDACBL PO Last administered on 07/18/18 12:45; Start 07/16/18 at 07:30; Stop 07/18/18 at 17:37; Status DC Hydralazine HCl (Apresoline) 25 mg TID PO Last administered on 07/18/18 14:09 ; Start 07/16/18 at 09:00; Stop 07/18/18 at 17:37; Status DC Losartan Potassium (Cozaar) 100 mg DAILY PO Last administered on 07/18/18 09: 35; Start 07/16/18 at 09:00; Stop 07/18/18 at 17:37; Status DC Magnesium Hydroxide (Milk Of Magnesia) 2,400 mg PRN DAILY PRN PO CONSTIPATION Last administered on 07/24/18 20:37; Start 07/16/18 at 06:45 Medroxyprogesterone Acetate (Provera) 10 mg DAILY PO Last administered on 10:47; Start 07/16/18 at 09:00; Stop 07/16/18 at 18:37; Status DC Melatonin 3 mg QHS PO Last administered on 07/27/18 20:24; Start 07/16/18 at 21 :00 Metoprolol Succinate (Toprol Xl) 100 mg DAILY PO Last administered on 08:34; Start 07/16/18 at 09:00 Multivitamins/ Calcium (Thera-M Plus) 1 tab DAILY PO Last administered on 08:35; Start 07/16/18 at 09:00 Ondansetron HCl (Zofran Odt) 4 mg PRN Q6HRS PRN PO NAUSEA/VOMITING; Start at 06:45 Quetiapine Fumarate (SEROquel) 25 mg HS PO Last administered on 07/27/18 20:24 ; Start 07/16/18 at 21:00 Thiamine HCl (Vitamin B-1) 100 mg DAILY PO Last administered on 07/27/18 08:33 ; Start 07/16/18 at 09:00 Trazodone HCl (Desyrel) 150 mg QHS PO Last administered on 07/27/18 20:25; Start 07/16/18 at 21:00 Triamcinolone Acetonide (Kenalog) 1 raquel PRN DAILY PRN TP RASH; Start 07/16/18 at 09:00 Lidocaine (Xylocaine) 1 raquel PRN DAILY PRN TP .; Start 07/16/18 at 09:00 Insulin Human Lispro (HumaLOG) sliding scale Bl... TIDAC SQ Last administered on 07/27/18 18:06; Start 07/16/18 at 11:30 Insulin Human Lispro (HumaLOG) blood sugar 70-15,0/0 units... HS SQ Last administered on 07/16/18 21:16; Start 07/16/18 at 21:00; Stop 07/17/18 at 16:24; Status DC Medroxyprogesterone Acetate (Provera) 15 mg DAILY PO Last administered on 08:34; Start 07/17/18 at 09:00 Olanzapine (ZyPREXA IM) 5 mg 1X ONCE IM Last administered on 07/16/18 21:55; Start 07/16/18 at 22:00; Stop 07/16/18 at 22:01; Status DC Olanzapine (ZyPREXA ZYDIS) 2.5 mg PRN Q2HR PRN PO ANXIETY / AGITATION Last administered on 07/21/18 08:30; Start 07/16/18 at 21:45 Insulin Human Lispro (HumaLOG) 6 units TIDAC SQ Last administered on 07/22/18 18:19; Start 07/17/18 at 16:30; Stop 07/22/18 at 19:21; Status DC Insulin Glargine (Lantus) 20 units QHS SQ Last administered on 07/21/18at 20:56 ; Start 07/17/18 at 21:00; Stop 07/22/18 at 19:21; Status DC Furosemide (Lasix) 40 mg BIDACBL PO Last administered on 07/27/18at 11:03; Start 07/19/18 at 07:30 Hydralazine HCl (Apresoline) 50 mg TID PO Last administered on 07/27/18 20:25 ; Start 07/18/18 at 21:00 Losartan Potassium (Cozaar) 25 mg DAILY PO Last administered on 07/27/18 08:35 ; Start 07/19/18 at 09:00 Duloxetine HCl (Cymbalta) 30 mg DAILY PO Last administered on 07/27/18 08:33; Start 07/20/18 at 09:00 Tramadol HCl (Ultram) 50 mg DAILY PRN PO PAIN; Start 07/20/18 at 10:45 Tramadol HCl (Ultram) 50 mg QHS PO Last administered on 07/27/18 20:28; Start 07/20/18 at 21:00 Insulin Glargine (Lantus) 30 units QHS SQ Last administered on 07/27/18 20:29 ; Start 07/22/18 at 21:00 Insulin Human Lispro (HumaLOG) 10 units TIDAC SQ Last administered on at 17:07; Start 07/23/18 at 07:30 Active Scripts Active Reported Humalog (Insulin Lispro) 100 Unit/1 Ml Vial 0-3 Unit SQ HS per s/s if not eating: BS 70-200 = 0 units BS 201-250 = 2 units BS 251-300 = 3 units Depakote (Divalproex Sodium) 500 Mg Tablet.dr 500 Mg PO BID Cefpodoxime Proxetil 200 Mg Tablet 200 Mg PO BID Seroquel (Quetiapine Fumarate) 25 Mg Tablet 25 Mg PO HS Triamcinolone Acetonide 15 Gm Cream..g. 1 Raquel TP PRN DAILY PRN Ondansetron Odt (Ondansetron) 4 Mg Tab.rapdis 4 Mg PO PRN Q6HRS PRN Furosemide 40 Mg Tablet 60 Mg PO BIDACBL Acetaminophen 325 Mg Tablet 650 Mg PO PRN Q6HRS PRN Tramadol Hcl (Tramadol HCl) 50 Mg Tablet 50 Mg PO PRN BID PRN [Lidocaine Oint 5%] 1 Raquel TP PRN DAILY Apply to heel prior to wound debridement. One Daily Plus Minerals (Multivitamin With Minerals) 1 Each Tablet 1 Tab PO DAILY Losartan Potassium 100 Mg Tablet 100 Mg PO DAILY Metoprolol Succinate ( Xl ) (Metoprolol Succinate) 100 Mg Tab.er.24h 100 Mg PO DAILY Docusate Sodium 100 Mg Capsule 200 Mg PO DAILY Humalog (Insulin Lispro) 100 Unit/1 Ml Cartridge 0-7 Unit SQ TIDAC For BG <70 units, notify provider IF EATING IF NOT EATING B-150 0 units 0 units B-200 3 units 0 units B-250 4 units 2 units B-300 6 units 3 units B-350 7 units 4 units BG <60 or >351 notify provider Trazodone Hcl 150 Mg Tablet 1 Tab PO QHS Medroxyprogesterone Acetate 10 Mg Tablet 1 Tab PO DAILY Hydralazine Hcl 25 Mg Tablet 1 Tab PO TID Buspirone Hcl 10 Mg Tablet 1 Tab PO DAILY Klor-Con M20 (Potassium Chloride) 20 Meq Tab.er.prt 1 Tab PO BIDWMEALS Melatonin 3 Mg Tablet 1 Tab PO QHS Milk Of Magnesia (Magnesium Hydroxide) 2,400 Mg/10 Ml Oral.susp 2,400 Mg PO PRN DAILY PRN Thiamine Hcl 100 Mg Tablet 100 Mg PO DAILY Folic Acid 1 Mg Tablet 1 Tab PO DAILY Gabapentin (Gabapentin) 100 Mg Capsule 100 Mg PO TIDWMEALS I have reviewed the current psychotropics carefully including drug interactions. Risk benefit ratio favors no change other than as noted in my dictated progress note. Diagnosis: Problems: (1) Anxiety disorder (2) Impulse control disorder (3) Bipolar affective disorder, mixed (4) Dementia, vascular, with delusions (5) Dementia with behavioral disturbance LIZ DIANE MD Jul 27, 2018 22:46
--- NOTE | 2018-07-28 01:36 | PN ---
DATE: 07/26/2018 PSYCHIATRIC PROGRESS NOTE This late entry 07/26/2018 covers elements not covered in my initial note. SUBJECTIVE: I met with the patient in the evening. The patient slept 6-3/4 hours previous night. He has been dozing in the chair in the morning, slept until about 8:30 a.m. REVIEW OF SYSTEMS: Ambulation impaired with walker. No CV, , pulmonary, eye system symptoms on review. MENTAL STATUS EXAM: Oriented to himself and situation. Speech has some latency, coherent, often responses monosyllabic. Abstraction fair, computation impaired, language function intact, attention span short. Mood and affect withdrawn. LABORATORY DATA: Reviewed. IMPRESSION: Major depressive disorder, recurrent, in partial remission; cognitive disorder, unspecified. Rest unchanged. PLAN: Continue psychotropics from initial note. BuSpar, melatonin, trazodone, Seroquel, Depakote along with Provera for sexually inappropriate behavior, Cymbalta and Zyprexa p.r.n. LIZ DIANE MD DR: MATILDA/james JOB#: [id number] / [id number]
[2018-07-28 06:15] VITALS: BP 150/80
[2018-07-28] MEDS: INSULIN LISPRO 300 UNITS/3 ML INSULN.PEN. SQ SCH ×6 (07:30→17:43)
[2018-07-28] MEDS: medroxyPROGESTERone 5 MG TABLET PO SCH (08:06)
[2018-07-28] MEDS: busPIRone 10 MG TABLET. PO SCH (08:06)
[2018-07-28] MEDS: FOLIC ACID 1 MG TABLET PO SCH (08:08)
[2018-07-28] MEDS: METOPROLOL SUCC 24HR ER 50 MG TAB.ER.24H. PO SCH (08:08)
[2018-07-28] MEDS: THIAMINE 100 MG TABLET. PO SCH (08:08)
[2018-07-28] MEDS: DIVALPROEX SODIUM 250 MG TABLET.DR. PO SCH ×2 (08:08→20:25)
[2018-07-28] MEDS: MULTIVITAMIN with MINERAL TABLET. PO SCH (08:08)
[2018-07-28] MEDS: FUROSEMIDE 40 MG TABLET PO SCH ×2 (08:08→11:53)
[2018-07-28] MEDS: LOSARTAN 25 MG TABLET. PO SCH (08:09)
[2018-07-28] MEDS: POTASSIUM CHLORIDE 20 MEQ TABLET.ER. PO SCH ×2 (08:09→16:42)
[2018-07-28] MEDS: DOCUSATE SODIUM 100 MG CAPSULE PO SCH (08:09)
[2018-07-28] MEDS: GABAPENTIN 100 MG CAPSULE. PO SCH ×3 (08:18→16:42)
[2018-07-28] MEDS: DULoxetine HCL 30 MG CAPSULE.DR PO SCH (09:00)
[2018-07-28 16:42] VITALS: BP 139/79
--- NOTE | 2018-07-28 19:31 | PN ---
DATE: 07/27/2018 PSYCHIATRIC PROGRESS NOTE This late entry 07/27/2018 covers elements not covered in my initial note. SUBJECTIVE: I met with the patient in the evening at some length. The patient slept 7-3/4 hours previous night. He is oriented to his date of , current year, and name of the president. 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 He recognizes he is unable to do any of that and he does not need to be staying in motels like he previously wanted to do and we processed this. He was agitated at lunchtime wanting some ice cream, but then redirected. He was agitated earlier due to blood sugars being checked, which was 312. We will defer to Dr. Chapman. REVIEW OF SYSTEMS: Ambulation impaired with walker. No CV, , pulmonary, eye system symptoms on review. MENTAL STATUS EXAM: Oriented to himself and situation. Speech is coherent, has some latency. Abstraction fair, computation impaired, language function intact, attention span short. Mood and affect is improved. He denied suicidal ideation. LABORATORY DATA: Reviewed. IMPRESSION: Unchanged from initial note. PLAN: No change from initial note. LIZ DIANE MD DR: MATILDA/james JOB#: [id number] / [id number]
[2018-07-28] MEDS: MELATONIN 3 MG TABLET PO SCH (20:24)
[2018-07-28] MEDS: traZODone 150 MG TABLET. PO SCH (20:24)
[2018-07-28] MEDS: QUEtiapine 25 MG TABLET. PO SCH (20:25)
[2018-07-28 20:26] VITALS: BP 139/79
[2018-07-28] MEDS: traMADol 50 MG TABLET PO SCH (20:30)
[2018-07-28] MEDS: INSULIN GLARGINE 300 UNITS/3 ML INSULN.PEN. SQ SCH (20:31)
[2018-07-28] MEDS ORDERED: DULO30CA43 PO (22:07)
[2018-07-28] MEDS ORDERED: INSU100I13 SQ (22:08)
[2018-07-28] MEDS ORDERED: INSU100C SQ (22:10)
[2018-07-28] MEDS ORDERED: MAG30ORA2 PO (22:13)
[2018-07-28] MEDS ORDERED: METH29OI TP (22:14)
[2018-07-28] MEDS ORDERED: METO-247 PO (22:15)
[2018-07-28] MEDS ORDERED: OLAN2.5T3 PO (22:16)
[2018-07-28] MEDS ORDERED: HYDR-2869 PO (22:19)
[2018-07-28] MEDS ORDERED: TRAM50TA PO (22:23)
[2018-07-28] MEDS ORDERED: LOSA25TA PO (22:24)
--- NOTE | 2018-07-28 22:53 | PDOC ---
Exam Note: Adriano Note: Please also refer to the separate dictated note~for this date of service dictated separately.~Patient seen individually. Discussed the patient with Nursing staff reviewed the chart.~Reviewed interim history and current functioning. Reviewed vital signs,~Labs/ Radiology~and current medications noted below. Continue current treatment with the changes noted in the dictated addendum note Assessment: Vital Signs: Vital Signs Date Time Temp Pulse Resp B/P (MAP) Pulse Ox O2 Delivery O2 Flow Rate FiO2 07/28/18 20:30 Room Air 07/28/18 20:26 67 139/79 07/28/18 16:42 97.8 19 95 I&O Intake and Output 07/28/18 07:00 Intake Total 840 ml Balance 840 ml Intake Oral 840 ml Labs: Laboratory Tests Test 07/28/18 07:21 07/28/18 11:40 07/28/18 17:00 07/28/18 19:21 Glucose (Fingerstick) 117 mg/dL (70-99) H 237 mg/dL (70-99) H 316 mg/dL (70-99) H 365 mg/dL (70-99) H Current Medications: Meds: Current Medications Acetaminophen (Tylenol) 650 mg PRN Q6HRS PRN PO PAIN / TEMP; Start 07/16/18 at 06:15; Status Cancel Multi-Ingredient Ointment (Analgesic [place]) 1 raquel PRN QID PRN TP MUSCLE PAIN; Start 07/16/18 at 06:15 Al Hydroxide/Mg Hydroxide (Mylanta Plus Xs) 15 ml PRN AFTMEALHC PRN PO DYSPEPSIA; Start 07/16/18 at 06:15 Magnesium Hydroxide (Milk Of Magnesia) 2,400 mg PRN QHS PRN PO CONSTIPATION; Start 07/16/18 at 06:15; Status Cancel Acetaminophen (Tylenol) 650 mg PRN Q6HRS PRN PO PAIN / TEMP Last administered on 07/22/18at 08:33; Start 07/16/18 at 06:45 Gabapentin (Neurontin) 100 mg TIDWMEALS PO Last administered on 07/28/18at 16:42 ; Start 07/16/18 at 08:00 Potassium Chloride (Klor-Con) 20 meq BIDWMEALS PO Last administered on at 16:42; Start 07/16/18 at 08:00 Tramadol HCl (Ultram) 50 mg PRN BID PRN PO PAIN Last administered on 07/19/18 21:31; Start 07/16/18 at 06:45; Stop 07/20/18 at 10:41; Status DC Buspirone HCl (Buspar) 10 mg DAILY PO Last administered on 07/28/18 08:06; Start 07/16/18 at 09:00 Divalproex Sodium (Depakote) 500 mg BID PO Last administered on 07/28/18 20:25 ; Start 07/16/18 at 09:00 Docusate Sodium (Colace) 200 mg DAILY PO Last administered on 07/28/18 08:09; Start 07/16/18 at 09:00 Folic Acid (Folic Acid) 1 mg DAILY PO Last administered on 07/28/18 08:08; Start 07/16/18 at 09:00 Furosemide (Lasix) 60 mg BIDACBL PO Last administered on 07/18/18 12:45; Start 07/16/18 at 07:30; Stop 07/18/18 at 17:37; Status DC Hydralazine HCl (Apresoline) 25 mg TID PO Last administered on 07/18/18 14:09 ; Start 07/16/18 at 09:00; Stop 07/18/18 at 17:37; Status DC Losartan Potassium (Cozaar) 100 mg DAILY PO Last administered on 07/18/18 09: 35; Start 07/16/18 at 09:00; Stop 07/18/18 at 17:37; Status DC Magnesium Hydroxide (Milk Of Magnesia) 2,400 mg PRN DAILY PRN PO CONSTIPATION Last administered on 07/24/18 20:37; Start 07/16/18 at 06:45 Medroxyprogesterone Acetate (Provera) 10 mg DAILY PO Last administered on 10:47; Start 07/16/18 at 09:00; Stop 07/16/18 at 18:37; Status DC Melatonin 3 mg QHS PO Last administered on 07/28/18 20:24; Start 07/16/18 at 21 :00 Metoprolol Succinate (Toprol Xl) 100 mg DAILY PO Last administered on 3/20/ 19at 08:08; Start 07/16/18 at 09:00 Multivitamins/ Calcium (Thera-M Plus) 1 tab DAILY PO Last administered on 08:08; Start 07/16/18 at 09:00 Ondansetron HCl (Zofran Odt) 4 mg PRN Q6HRS PRN PO NAUSEA/VOMITING; Start at 06:45 Quetiapine Fumarate (SEROquel) 25 mg HS PO Last administered on 07/28/18at 20:25 ; Start 07/16/18 at 21:00 Thiamine HCl (Vitamin B-1) 100 mg DAILY PO Last administered on 07/28/18 08:08 ; Start 07/16/18 at 09:00 Trazodone HCl (Desyrel) 150 mg QHS PO Last administered on 07/28/18at 20:24; Start 07/16/18 at 21:00 Triamcinolone Acetonide (Kenalog) 1 raquel PRN DAILY PRN TP RASH; Start 07/16/18 at 09:00 Lidocaine (Xylocaine) 1 raquel PRN DAILY PRN TP .; Start 07/16/18 at 09:00 Insulin Human Lispro (HumaLOG) sliding scale Bl... TIDAC SQ Last administered on 07/28/18at 17:42; Start 07/16/18 at 11:30 Insulin Human Lispro (HumaLOG) blood sugar 70-15,0/0 units... HS SQ Last administered on 07/16/18 21:16; Start 07/16/18 at 21:00; Stop 07/17/18 at 16:24; Status DC Medroxyprogesterone Acetate (Provera) 15 mg DAILY PO Last administered on at 08:06; Start 07/17/18 at 09:00 Olanzapine (ZyPREXA IM) 5 mg 1X ONCE IM Last administered on 07/16/18at 21:55; Start 07/16/18 at 22:00; Stop 07/16/18 at 22:01; Status DC Olanzapine (ZyPREXA ZYDIS) 2.5 mg PRN Q2HR PRN PO ANXIETY / AGITATION Last administered on 07/21/18 08:30; Start 07/16/18 at 21:45 Insulin Human Lispro (HumaLOG) 6 units TIDAC SQ Last administered on 07/22/18 18:19; Start 07/17/18 at 16:30; Stop 07/22/18 at 19:21; Status DC Insulin Glargine (Lantus) 20 units QHS SQ Last administered on 07/21/18at 20:56 ; Start 07/17/18 at 21:00; Stop 07/22/18 at 19:21; Status DC Furosemide (Lasix) 40 mg BIDACBL PO Last administered on 07/28/18at 11:53; Start 07/19/18 at 07:30 Hydralazine HCl (Apresoline) 50 mg TID PO Last administered on 07/28/18 20:26 ; Start 07/18/18 at 21:00 Losartan Potassium (Cozaar) 25 mg DAILY PO Last administered on 07/28/18at 08:09 ; Start 07/19/18 at 09:00 Duloxetine HCl (Cymbalta) 30 mg DAILY PO Last administered on 07/28/18 09:00; Start 07/20/18 at 09:00; Stop 07/28/18 at 17:54; Status DC Tramadol HCl (Ultram) 50 mg DAILY PRN PO PAIN; Start 07/20/18 at 10:45 Tramadol HCl (Ultram) 50 mg QHS PO Last administered on 07/28/18at 20:30; Start 07/20/18 at 21:00 Insulin Glargine (Lantus) 30 units QHS SQ Last administered on 07/28/18at 20:31 ; Start 07/22/18 at 21:00 Insulin Human Lispro (HumaLOG) 10 units TIDAC SQ Last administered on at 17:43; Start 07/23/18 at 07:30 Duloxetine HCl (Cymbalta) 60 mg DAILY PO ; Start 07/29/18 at 09:00 Active Scripts Active Reported Cozaar (Losartan Potassium) 25 Mg Tablet 25 Mg PO DAILY Tramadol Hcl (Tramadol HCl) 50 Mg Tablet 50 Mg PO HS PRN Hydralazine Hcl 50 Mg Tablet 50 Mg PO TID Zyprexa (Olanzapine) 2.5 Mg Tablet 2.5 Mg PO PRN Q2HR PRN Metoprolol Succinate ( Xl ) (Metoprolol Succinate) 100 Mg Tab.er.24h 100 Mg PO DAILY Analgesic [place] (Methyl Salicylate/Menthol) 28 Gm Oint...g. 1 Raquel TP PRN QID PRN Mag-Al Plus Xs Suspension (Mag Hydrox/Al Hydrox/Simeth) 30 Ml Oral.susp 15 Ml PO PRN AFTMEALHC PRN Humalog (Insulin Lispro) 100 Unit/1 Ml Cartridge 10 Unit SQ TIDAC Lantus Solostar (Insulin Glargine,Hum.rec.anlog) 100 Unit/1 Ml Insuln.pen 30 Unit SQ QHS Duloxetine Hcl 30 Mg Capsule.dr 30 Mg PO DAILY Depakote (Divalproex Sodium) 500 Mg Tablet.dr 500 Mg PO BID Seroquel (Quetiapine Fumarate) 25 Mg Tablet 25 Mg PO HS Triamcinolone Acetonide 15 Gm Cream..g. 1 Raquel TP PRN DAILY PRN Ondansetron Odt (Ondansetron) 4 Mg Tab.rapdis 4 Mg PO PRN Q6HRS PRN Furosemide 40 Mg Tablet 60 Mg PO BIDACBL Acetaminophen 325 Mg Tablet 650 Mg PO PRN Q6HRS PRN Tramadol Hcl (Tramadol HCl) 50 Mg Tablet 50 Mg PO PRN DAILY PRN [Lidocaine Oint 5%] 1 Raquel TP PRN DAILY Apply to heel prior to wound debridement. One Daily Plus Minerals (Multivitamin With Minerals) 1 Each Tablet 1 Tab PO DAILY Docusate Sodium 100 Mg Capsule 200 Mg PO DAILY Humalog (Insulin Lispro) 100 Unit/1 Ml Cartridge 0-7 Unit SQ TIDAC For BG <70 units, notify provider IF EATING IF NOT EATING B-150 0 units 0 units B-200 3 units 0 units B-250 4 units 2 units B-300 6 units 3 units B-350 7 units 4 units BG <60 or >351 notify provider Trazodone Hcl 150 Mg Tablet 1 Tab PO QHS Medroxyprogesterone Acetate 10 Mg Tablet 15 Mg PO DAILY Buspirone Hcl 10 Mg Tablet 1 Tab PO DAILY Klor-Con M20 (Potassium Chloride) 20 Meq Tab.er.prt 1 Tab PO BIDWMEALS Melatonin 3 Mg Tablet 1 Tab PO QHS Milk Of Magnesia (Magnesium Hydroxide) 2,400 Mg/10 Ml Oral.susp 2,400 Mg PO PRN DAILY PRN Thiamine Hcl 100 Mg Tablet 100 Mg PO DAILY Folic Acid 1 Mg Tablet 1 Tab PO DAILY Gabapentin (Gabapentin) 100 Mg Capsule 100 Mg PO TIDWMEALS I have reviewed the current psychotropics carefully including drug interactions. Risk benefit ratio favors no change other than as noted in my dictated progress note. Diagnosis: Problems: (1) Anxiety disorder (2) Impulse control disorder (3) Bipolar affective disorder, mixed (4) Dementia, vascular, with delusions (5) Dementia with behavioral disturbance LIZ DIANE MD Jul 28, 2018 22:53
[2018-07-29] MEDS ORDERED: DULoxetine HCL 60 MG CAPSULE.DR PO SCH (09:00)
--- NOTE | 2018-07-29 19:12 | DS ---
DATE OF DISCHARGE: 07/28/2018 DISCHARGE SUMMARY AND PSYCHIATRIC PROGRESS NOTE Discharged on 07/28/[address] Diane. This is late entry covers elements not covered in my initial note 07/28/2018. REASON FOR ADMISSION: Please refer to the admission history for details. Briefly, the patient is a 72-year-old male referred to us from [facility] by his primary care physician after he had failed outpatient psychiatric interventions by myself and was increasingly depressed, hopeless, helpless, worthless, had suicidal ideation with a plan to hang himself. The patient was deemed to be a potential danger, had failed outpatient psychiatric interventions resulting in this referral. SIGNIFICANT FINDINGS AND CLINICAL COURSE: Following admission, the patient was seen daily individually by myself from a psychiatric standpoint, medical followup with Dr. Chapman. He was quite withdrawn, depressed. Adjustments were made in his psychotropics and he seemed to be doing better on a combination of Cymbalta 30 mg a day with a plan to increase it to 60 mg a day after taken 3 doses of the 30. He was also on melatonin 3 mg at bedtime, BuSpar 10 mg a day, trazodone 150 mg at bedtime, Seroquel 25 mg at bedtime, Depakote ER 500 b.i.d. with a therapeutic blood level at 56. Provera 15 mg a day on account of his sexually aggressive behaviors and Zyprexa p.r.n. Gradually mood appeared to improve. He denied suicidal ideation. Still occasionally had thoughts of wanting to go to [place], [place] and live in hot, but easily moderated this as I addressed this with him individually. REVIEW OF SYSTEMS: Prior to discharge on 07/28/2018, ambulation impaired. No CV, , pulmonary, eye, ENT system symptoms on review. MENTAL STATUS EXAM: Oriented to himself and situation. Speech moderate latency, often responses monosyllabic. Abstraction fair, computation impaired, language function intact. Mood and affect is improved. No suicidal ideation. Labs reviewed. The patient was transferred to [facility] on 08/01/2018 wound care. FINAL DIAGNOSES: Major depressive disorder, recurrent, in partial remission; anxiety disorder, unspecified; cognitive disorder, unspecified; impulse control disorder, unspecified, worsening wounds requiring wound care. Rest unchanged from admission. DISCHARGE MEDICATIONS: Please refer to MRAD. DISCHARGE INSTRUCTIONS: Psychiatric and medical followup at [place]. MAN Newton DIANE MD DR: MATILDA/james JOB#: [id number] / [id number]
--- NOTE | 2018-08-09 11:01 | EKG ---
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
== END 2018-07-28 23:53 | DRG 885 ==
LOC: GEROPSY 05:40
PROVIDERS: ADMIT Psychiatry & Neurology Psychiatry; ATTEND Psychiatry & Neurology Psychiatry
DX: F31.60 Bipolar disorder, current episode mixed, unspecified (principal); F01.51 Vascular dementia, unspecified severity, with behavioral disturbance; R45.851 Suicidal ideations; F41.9 Anxiety disorder, unspecified; F63.9 Impulse disorder, unspecified; E11.9 Type 2 diabetes mellitus without complications; I10 Essential (primary) hypertension; Z66 Do not resuscitate; Z79.899 Other long term (current) drug therapy; Z87.891 Personal history of nicotine dependence
CPT/HCPCS: 36415; 80053; 80061; 80164; 82306; 82947; 83036; 83540; 83550; 83605; 83735; 84436; 84443; 84480; 85025; 85027; 86592; 93005; J1815; J3490

== ENCOUNTER 2018-08-03 17:35 | Inpatient (IN) | payer MEDICARE ==
[~2018-08-03] VITALS: Ht 172.7 cm; Wt 109.0 kg
[~2018-08-03 17:35] MED LIST changes: +ACET325T21 PO; +CEFP200T PO; +DIVA500T2 PO; +DOCU100C28 PO; +DULO30CA43 PO; +HYDR-2869 PO; +INSU100V SQ; +LIDOCAINE 5% TP; +LOSA100T14 PO; +LOSA25TA PO; +METO-247 PO; +MULT-312 PO; +OLAN2.5T3 PO; +ONDA4TAB12 PO; +QUET25TA5 PO; +TRAM50TA PO; +TRIA15CR2 TP
[2018-08-03] MEDS ORDERED: METHYL SALICYLATE/MENTHOL TOPICAL OINTMENT 29GM TUBE. TP PRN (21:45)
[2018-08-03] MEDS ORDERED: traMADol 50 MG TABLET PO PRN ×2 (21:45→22:15)
[2018-08-03] MEDS ORDERED: MAG HYDROX/AL HYDROX/SIMETH 30 ML ORAL.SUSP PO PRN (21:45)
[2018-08-03] MEDS ORDERED: ONDANSETRON ODT 4 MG TAB.RAPDIS PO PRN (22:00)
[2018-08-03] MEDS ORDERED: LIDOCAINE 5% TOPICAL OINTMENT 35GM TUBE. TP PRN (22:15)
[2018-08-03] MEDS ORDERED: TRIAMCINOLONE ACETONIDE 0.1% TOPICAL CREAM 15GM TUBE. TP PRN (22:15)
[2018-08-03] MEDS ORDERED: traZODone 150 MG TABLET. PO PRN (22:15)
[2018-08-03] MEDS: ACETAMINOPHEN 325 MG TABLET PO PRN (22:20)
--- NOTE | 2018-08-03 23:01 | PDOC ---
Exam Note: Adriano Note: Please also refer to the separate dictated note~for this date of service dictated separately. Discussed the patient with Nursing staff reviewed the chart.~Reviewed interim history and current functioning. Reviewed vital signs,~ Labs/ Radiology~and current medications noted below. Continue current treatment with the changes noted in the dictated addendum note Current Medications: Meds: Current Medications Acetaminophen (Tylenol) 650 mg PRN Q6HRS PRN PO PAIN / TEMP Last administered on 08/03/18at 22:20; Start 08/03/18 at 21:45 Gabapentin (Neurontin) 100 mg TIDWMEALS PO ; Start 08/04/18 at 08:00 Insulin Glargine (Lantus) 30 units QHS SQ ; Start 08/04/18 at 21:00 Losartan Potassium (Cozaar) 25 mg DAILY PO ; Start 08/04/18 at 09:00 Al Hydroxide/Mg Hydroxide (Mylanta Plus Xs) 15 ml PRN AFTMEALHC PRN PO DYSPEPSIA; Start 08/03/18 at 21:45 Multi-Ingredient Ointment (Analgesic [place]) 1 raquel PRN QID PRN TP MUSCLE PAIN; Start 08/03/18 at 21:45 Potassium Chloride (Klor-Con) 20 meq BIDWMEALS PO ; Start 08/04/18 at 08:00 Tramadol HCl (Ultram) 50 mg PRN QHS PRN PO PAIN Last administered on 08/03/18at 22:20; Start 08/03/18 at 22:15 Tramadol HCl (Ultram) 50 mg PRN DAILY PRN PO PAIN; Start 08/03/18 at 21:45 Buspirone HCl (Buspar) 10 mg DAILY PO ; Start 08/04/18 at 09:00 Divalproex Sodium (Depakote Er) 500 mg BID PO ; Start 08/04/18 at 09:00 Docusate Sodium (Colace) 200 mg DAILY PO ; Start 08/04/18 at 09:00 Duloxetine HCl (Cymbalta) 30 mg DAILY PO ; Start 08/04/18 at 09:00 Folic Acid (Folic Acid) 1 mg DAILY PO ; Start 08/04/18 at 09:00 Furosemide (Lasix) 40 mg BIDACBL PO ; Start 08/04/18 at 07:30 Hydralazine HCl (Apresoline) 50 mg TID PO ; Start 08/04/18 at 09:00 Non-Formulary Medication (Insulin Lispro (Humalog)) TID ac TIDAC SQ ; Start at 07:30; Status UNV Insulin Human Lispro (HumaLOG) 10 units TIDAC SQ ; Start 08/04/18 at 07:30 Magnesium Hydroxide (Milk Of Magnesia) 2,400 mg PRN DAILY PRN PO CONSTIPATION; Start 08/03/18 at 22:00 Medroxyprogesterone Acetate (Provera) 15 mg DAILY PO ; Start 08/04/18 at 09:00 Melatonin 3 mg QHS PO ; Start 08/04/18 at 21:00 Metoprolol Succinate (Toprol Xl) 100 mg DAILY PO ; Start 08/04/18 at 09:00 Multivitamins/ Calcium (Thera-M Plus) 1 tab DAILY PO ; Start 08/04/18 at 09:00 Olanzapine (ZyPREXA) 2.5 mg PRN Q2HR PRN PO AGITATION; Start 08/03/18 at 22:00 Ondansetron HCl (Zofran Odt) 4 mg PRN Q6HRS PRN PO NAUSEA/VOMITING; Start 08/03 at 22:00 Quetiapine Fumarate (SEROquel) 25 mg QHS PO ; Start 08/04/18 at 21:00 Thiamine HCl (Vitamin B-1) 100 mg DAILY PO ; Start 08/04/18 at 09:00 Trazodone HCl (Desyrel) 150 mg PRN QHS PRN PO INSOMNIA; Start 08/03/18 at 22:15 Triamcinolone Acetonide (Kenalog) 1 raquel PRN DAILY PRN TP RASH; Start 08/03/18 at 22:15 Lidocaine (Xylocaine) 1 raquel PRN DAILY PRN TP PAIN; Start 08/03/18 at 22:15 Active Scripts Active Reported Cozaar (Losartan Potassium) 25 Mg Tablet 25 Mg PO DAILY Tramadol Hcl (Tramadol HCl) 50 Mg Tablet 50 Mg PO HS PRN Hydralazine Hcl 50 Mg Tablet 50 Mg PO TID Zyprexa (Olanzapine) 2.5 Mg Tablet 2.5 Mg PO PRN Q2HR PRN Metoprolol Succinate ( Xl ) (Metoprolol Succinate) 100 Mg Tab.er.24h 100 Mg PO DAILY Analgesic [place] (Methyl Salicylate/Menthol) 28 Gm Oint...g. 1 Raquel TP PRN QID PRN Mag-Al Plus Xs Suspension (Mag Hydrox/Al Hydrox/Simeth) 30 Ml Oral.susp 15 Ml PO PRN AFTMEALHC PRN Humalog (Insulin Lispro) 100 Unit/1 Ml Cartridge 10 Unit SQ TIDAC Lantus Solostar (Insulin Glargine,Hum.rec.anlog) 100 Unit/1 Ml Insuln.pen 30 Unit SQ QHS Duloxetine Hcl 30 Mg Capsule.dr 30 Mg PO DAILY Depakote (Divalproex Sodium) 500 Mg Tablet.dr 500 Mg PO BID Seroquel (Quetiapine Fumarate) 25 Mg Tablet 25 Mg PO HS Triamcinolone Acetonide 15 Gm Cream..g. 1 Raquel TP PRN DAILY PRN Ondansetron Odt (Ondansetron) 4 Mg Tab.rapdis 4 Mg PO PRN Q6HRS PRN Furosemide 40 Mg Tablet 60 Mg PO BIDACBL Acetaminophen 325 Mg Tablet 650 Mg PO PRN Q6HRS PRN Tramadol Hcl (Tramadol HCl) 50 Mg Tablet 50 Mg PO PRN DAILY PRN [Lidocaine Oint 5%] 1 Raquel TP PRN DAILY Apply to heel prior to wound debridement. One Daily Plus Minerals (Multivitamin With Minerals) 1 Each Tablet 1 Tab PO DAILY Docusate Sodium 100 Mg Capsule 200 Mg PO DAILY Humalog (Insulin Lispro) 100 Unit/1 Ml Cartridge 0-7 Unit SQ TIDAC For BG <70 units, notify provider IF EATING IF NOT EATING B-150 0 units 0 units B-200 3 units 0 units B-250 4 units 2 units B-300 6 units 3 units B-350 7 units 4 units BG <60 or >351 notify provider Trazodone Hcl 150 Mg Tablet 1 Tab PO QHS Medroxyprogesterone Acetate 10 Mg Tablet 15 Mg PO DAILY Buspirone Hcl 10 Mg Tablet 1 Tab PO DAILY Klor-Con M20 (Potassium Chloride) 20 Meq Tab.er.prt 1 Tab PO BIDWMEALS Melatonin 3 Mg Tablet 1 Tab PO QHS Milk Of Magnesia (Magnesium Hydroxide) 2,400 Mg/10 Ml Oral.susp 2,400 Mg PO PRN DAILY PRN Thiamine Hcl 100 Mg Tablet 100 Mg PO DAILY Folic Acid 1 Mg Tablet 1 Tab PO DAILY Gabapentin (Gabapentin) 100 Mg Capsule 100 Mg PO TIDWMEALS I have reviewed the current psychotropics carefully including drug interactions. Risk benefit ratio favors no change other than as noted in my dictated progress note. Diagnosis: Problems: (1) Anxiety disorder (2) Impulse control disorder (3) Bipolar affective disorder, mixed (4) Dementia, vascular, with delusions (5) Dementia with behavioral disturbance LIZ DIANE MD Aug 03, 2018 23:01
[2018-08-03 23:24] VITALS: BP 172/77
[2018-08-04] MEDS ORDERED: INSULIN LISPRO 300 UNITS/3 ML INSULN.PEN. SQ PRN (00:15)
[2018-08-04] MEDS ORDERED: DEXTROSE ORAL GEL 15 GM TUBE. PO PRN (00:15)
[2018-08-04] MEDS ORDERED: DEXTROSE 50% 25 GM / 50ML DISP.SYRIN. IV PRN (00:15)
[2018-08-04] MEDS: DOXYCYCLINE HYCLATE 100 MG TABLET PO SCH ×2 (05:31→17:34)
[2018-08-04 06:08] VITALS: BP 169/74
[2018-08-04] MEDS: INSULIN LISPRO 300 UNITS/3 ML INSULN.PEN. SQ SCH ×3 (07:30→17:36)
[2018-08-04] MEDS ORDERED: INSULIN LISPRO 300 UNITS/3 ML INSULN.PEN. SQ SCH ×2 (07:30)
[2018-08-04] MEDS: POTASSIUM CHLORIDE 20 MEQ TABLET.ER. PO SCH ×2 (08:27→17:34)
[2018-08-04] MEDS: DULoxetine HCL 30 MG CAPSULE.DR PO SCH (08:27)
[2018-08-04] MEDS: DOCUSATE SODIUM 100 MG CAPSULE PO SCH (08:27)
[2018-08-04] MEDS: FUROSEMIDE 40 MG TABLET PO SCH ×2 (08:27→12:01)
[2018-08-04] MEDS: FOLIC ACID 1 MG TABLET PO SCH (08:27)
[2018-08-04] MEDS: METOPROLOL SUCC 24HR ER 50 MG TAB.ER.24H. PO SCH (08:28)
[2018-08-04] MEDS: MULTIVITAMIN with MINERAL TABLET. PO SCH (08:28)
[2018-08-04] MEDS: CEFDINIR 300 MG CAPSULE PO SCH ×2 (08:28→20:16)
[2018-08-04] MEDS: THIAMINE 100 MG TABLET. PO SCH (08:28)
[2018-08-04] MEDS: LACTOBACILLUS RHAMNOSUS GG 1 CAPSULE. PO SCH ×2 (08:28→20:15)
[2018-08-04] MEDS: GABAPENTIN 100 MG CAPSULE. PO SCH ×3 (08:28→17:34)
[2018-08-04] MEDS: medroxyPROGESTERone 5 MG TABLET PO SCH (08:28)
[2018-08-04] MEDS: LOSARTAN 25 MG TABLET. PO SCH (08:33)
[2018-08-04] MEDS: NYSTATIN 100,000 UNIT/GM TOPICAL CREAM 15GM TUBE. TP SCH ×2 (08:33→20:16)
[2018-08-04] MEDS ORDERED: busPIRone 10 MG TABLET. PO PRN (09:00)
[2018-08-04] MEDS ORDERED: CEFPODOXIME PROXETIL 100 MG TABLET PO SCH (09:00)
[2018-08-04] MEDS ORDERED: DIVALPROEX ER 500 MG TAB.ER.24H PO SCH (09:00)
[2018-08-04] MEDS ORDERED: busPIRone 10 MG TABLET. PO SCH (09:00)
[2018-08-04] MEDS: traMADol 50 MG TABLET PO PRN (12:21)
[2018-08-04] MEDS ORDERED: LIDOCAINE 5% TOPICAL OINTMENT 35GM TUBE. TP PRN (14:15)
[2018-08-04] MEDS: QUEtiapine 25 MG TABLET. PO SCH (20:16)
[2018-08-04] MEDS: DIVALPROEX SODIUM 250 MG TABLET.DR. PO SCH (20:16)
[2018-08-04] MEDS: MELATONIN 3 MG TABLET PO SCH (20:18)
[2018-08-04] MEDS: INSULIN GLARGINE 300 UNITS/3 ML INSULN.PEN. SQ SCH (20:20)
[2018-08-04] MEDS ORDERED: INSULIN GLARGINE 300 UNITS/3 ML INSULN.PEN. SQ SCH ×2 (21:00)
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
--- NOTE | 2018-08-04 23:05 | PDOC ---
Exam Note: Adriano Note: Please also refer to the separate dictated note~for this date of service dictated separately.~Patient seen individually. Discussed the patient with Nursing staff reviewed the chart.~Reviewed interim history and current functioning. Reviewed vital signs,~Labs/ Radiology~and current medications noted below. Continue current treatment with the changes noted in the dictated addendum note Assessment: Vital Signs: Vital Signs Date Time Temp Pulse Resp B/P (MAP) Pulse Ox O2 Delivery O2 Flow Rate FiO2 08/04/18 20:15 78 168/77 08/04/18 13:21 96 08/04/18 06:08 97.9 18 08/04/18 00:08 Room Air I&O Intake and Output 08/04/18 06:59 Intake Total 240 ml Balance 240 ml Intake Oral 240 ml Labs: Laboratory Tests Test 08/04/18 12:00 08/04/18 16:48 08/04/18 16:50 08/04/18 19:43 Glucose (Fingerstick) 320 mg/dL (70-99) H 419 mg/dL (70-99) H 394 mg/dL (70-99) H 384 mg/dL (70-99) H Current Medications: Meds: Current Medications Acetaminophen (Tylenol) 650 mg PRN Q6HRS PRN PO PAIN / TEMP Last administered on 08/03/18at 22:20; Start 08/03/18 at 21:45 Gabapentin (Neurontin) 100 mg TIDWMEALS PO Last administered on 08/04/18at 17:34 ; Start 08/04/18 at 08:00 Insulin Glargine (Lantus) 30 units QHS SQ ; Start 08/04/18 at 21:00; Stop at 21:00; Status DC Losartan Potassium (Cozaar) 25 mg DAILY PO Last administered on 08/04/18at 08:33 ; Start 08/04/18 at 09:00 Al Hydroxide/Mg Hydroxide (Mylanta Plus Xs) 15 ml PRN AFTMEALHC PRN PO DYSPEPSIA; Start 08/03/18 at 21:45 Multi-Ingredient Ointment (Analgesic [place]) 1 raquel PRN QID PRN TP MUSCLE PAIN; Start 08/03/18 at 21:45 Potassium Chloride (Klor-Con) 20 meq BIDWMEALS PO Last administered on at 17:34; Start 08/04/18 at 08:00 Tramadol HCl (Ultram) 50 mg PRN QHS PRN PO PAIN Last administered on 08/03/18at 22:20; Start 08/03/18 at 22:15; Stop 08/04/18 at 01:08; Status DC Tramadol HCl (Ultram) 50 mg PRN DAILY PRN PO PAIN; Start 08/03/18 at 21:45; Stop 08/04/18 at 01:08; Status DC Buspirone HCl (Buspar) 10 mg DAILY PO ; Start 08/04/18 at 09:00; Stop 08/04/18 at 09:00; Status DC Divalproex Sodium (Depakote Er) 500 mg BID PO Last administered on 08/04/18at 08 :27; Start 08/04/18 at 09:00; Stop 08/04/18 at 13:30; Status DC Docusate Sodium (Colace) 200 mg DAILY PO Last administered on 08/04/18at 08:27; Start 08/04/18 at 09:00 Duloxetine HCl (Cymbalta) 30 mg DAILY PO Last administered on 08/04/18at 08:27; Start 08/04/18 at 09:00 Folic Acid (Folic Acid) 1 mg DAILY PO Last administered on 08/04/18at 08:27; Start 08/04/18 at 09:00 Furosemide (Lasix) 40 mg BIDACBL PO Last administered on 08/04/18at 12:01; Start 08/04/18 at 07:30 Hydralazine HCl (Apresoline) 50 mg TID PO Last administered on 08/04/18at 20:15 ; Start 08/04/18 at 09:00 Insulin Human Lispro (HumaLOG) TID ac TIDAC SQ ; Start 08/04/18 at 07:30; Stop 08/04/18 at 07:30; Status DC Insulin Human Lispro (HumaLOG) 10 units TIDAC SQ ; Start 08/04/18 at 07:30; Stop 08/04/18 at 07:30; Status DC Magnesium Hydroxide (Milk Of Magnesia) 2,400 mg PRN DAILY PRN PO CONSTIPATION; Start 08/03/18 at 22:00 Medroxyprogesterone Acetate (Provera) 15 mg DAILY PO Last administered on 08:28; Start 08/04/18 at 09:00 Melatonin 3 mg QHS PO Last administered on 08/04/18at 20:18; Start 08/04/18 at 21:00 Metoprolol Succinate (Toprol Xl) 100 mg DAILY PO Last administered on 08:28; Start 08/04/18 at 09:00 Multivitamins/ Calcium (Thera-M Plus) 1 tab DAILY PO Last administered on at 08:28; Start 08/04/18 at 09:00 Olanzapine (ZyPREXA) 2.5 mg PRN Q2HR PRN PO AGITATION; Start 08/03/18 at 22:00 Ondansetron HCl (Zofran Odt) 4 mg PRN Q6HRS PRN PO NAUSEA/VOMITING; Start 08/03 at 22:00 Quetiapine Fumarate (SEROquel) 25 mg QHS PO Last administered on 08/04/18at 20: 16; Start 08/04/18 at 21:00 Thiamine HCl (Vitamin B-1) 100 mg DAILY PO Last administered on 08/04/18 08:28 ; Start 08/04/18 at 09:00 Trazodone HCl (Desyrel) 150 mg PRN QHS PRN PO INSOMNIA; Start 08/03/18 at 22:15 Triamcinolone Acetonide (Kenalog) 1 raquel PRN DAILY PRN TP RASH; Start 08/03/18 at 22:15 Lidocaine (Xylocaine) 1 raquel PRN DAILY PRN TP PAIN; Start 08/03/18 at 22:15; Stop 08/04/18 at 14:03; Status DC Insulin Glargine (Lantus) 30 units QHS SQ ; Start 08/04/18 at 21:00; Stop at 21:00; Status DC Insulin Human Lispro (HumaLOG) 0-7 UNITS TIDWMEALS PRN SQ ELEVATED BS; Start at 00:15 Dextrose 12.5 gm PRN Q15MIN PRN IV SEE COMMENTS; Start 08/04/18 at 00:15 Glucose (Insta-Glucose) 15 gm PRN Q15MIN PRN PO LOW BLOOD SUGAR; Start at 00:15 Insulin Human Lispro (HumaLOG) 10 units TIDAC SQ Last administered on 12:22; Start 08/04/18 at 07:30; Stop 08/04/18 at 17:33; Status DC Buspirone HCl (Buspar) 10 mg PRN DAILY PRN PO ANXIETY / AGITATION; Start at 09:00 Tramadol HCl (Ultram) 50 mg PRN BID PRN PO PAIN Last administered on 08/04/18 12:21; Start 08/04/18 at 01:15 Lactobacillus Rhamnosus (Culturelle) 1 cap BID PO Last administered on 20:15; Start 08/04/18 at 09:00 Nystatin (Mycostatin) 1 raquel BID TP Last administered on 08/04/18 20:16; Start 08/04/18 at 09:00 Cefpodoxime Proxetil (Vantin) 200 mg BID PO ; Start 08/04/18 at 09:00; Stop at 09:00; Status DC Doxycycline Hyclate (Vibra-Tab) 100 mg [id number] PO Last administered on 08/04/18 17:34; Start 08/04/18 at 06:00 Cefdinir (Omnicef) 300 mg BID PO Last administered on 08/04/18 20:16; Start at 09:00 Divalproex Sodium (Depakote) 500 mg BID PO Last administered on 08/04/18 20:16 ; Start 08/04/18 at 21:00 Lidocaine (Xylocaine) 1 raquel PRN DAILY PRN TP PAIN; Start 08/04/18 at 14:15 Insulin Glargine (Lantus) 40 units QHS SQ Last administered on 08/04/18 20:20 ; Start 08/04/18 at 21:00 Insulin Human Lispro (HumaLOG) 15 units TIDAC SQ Last administered on 17:36; Start 08/05/18 at 07:30 Active Scripts Active Reported Cozaar (Losartan Potassium) 25 Mg Tablet 25 Mg PO DAILY Tramadol Hcl (Tramadol HCl) 50 Mg Tablet 50 Mg PO HS PRN Hydralazine Hcl 50 Mg Tablet 50 Mg PO TID Zyprexa (Olanzapine) 2.5 Mg Tablet 2.5 Mg PO PRN Q2HR PRN Metoprolol Succinate ( Xl ) (Metoprolol Succinate) 100 Mg Tab.er.24h 100 Mg PO DAILY Analgesic [place] (Methyl Salicylate/Menthol) 28 Gm Oint...g. 1 Raquel TP PRN QID PRN Mag-Al Plus Xs Suspension (Mag Hydrox/Al Hydrox/Simeth) 30 Ml Oral.susp 15 Ml PO PRN AFTMEALHC PRN Humalog (Insulin Lispro) 100 Unit/1 Ml Cartridge 10 Unit SQ TIDAC Lantus Solostar (Insulin Glargine,Hum.rec.anlog) 100 Unit/1 Ml Insuln.pen 30 Unit SQ QHS Duloxetine Hcl 30 Mg Capsule.dr 30 Mg PO DAILY Depakote (Divalproex Sodium) 500 Mg Tablet.dr 500 Mg PO BID Seroquel (Quetiapine Fumarate) 25 Mg Tablet 25 Mg PO HS Triamcinolone Acetonide 15 Gm Cream..g. 1 Raquel TP PRN DAILY PRN Ondansetron Odt (Ondansetron) 4 Mg Tab.rapdis 4 Mg PO PRN Q6HRS PRN Furosemide 40 Mg Tablet 60 Mg PO BIDACBL Acetaminophen 325 Mg Tablet 650 Mg PO PRN Q6HRS PRN Tramadol Hcl (Tramadol HCl) 50 Mg Tablet 50 Mg PO PRN DAILY PRN [Lidocaine Oint 5%] 1 Raquel TP PRN DAILY Apply to heel prior to wound debridement. One Daily Plus Minerals (Multivitamin With Minerals) 1 Each Tablet 1 Tab PO DAILY Docusate Sodium 100 Mg Capsule 200 Mg PO DAILY Humalog (Insulin Lispro) 100 Unit/1 Ml Cartridge 0-7 Unit SQ TIDAC For BG <70 units, notify provider IF EATING IF NOT EATING B-150 0 units 0 units B-200 3 units 0 units B-250 4 units 2 units B-300 6 units 3 units B-350 7 units 4 units BG <60 or >351 notify provider Trazodone Hcl 150 Mg Tablet 1 Tab PO QHS Medroxyprogesterone Acetate 10 Mg Tablet 15 Mg PO DAILY Buspirone Hcl 10 Mg Tablet 1 Tab PO DAILY Klor-Con M20 (Potassium Chloride) 20 Meq Tab.er.prt 1 Tab PO BIDWMEALS Melatonin 3 Mg Tablet 1 Tab PO QHS Milk Of Magnesia (Magnesium Hydroxide) 2,400 Mg/10 Ml Oral.susp 2,400 Mg PO PRN DAILY PRN Thiamine Hcl 100 Mg Tablet 100 Mg PO DAILY Folic Acid 1 Mg Tablet 1 Tab PO DAILY Gabapentin (Gabapentin) 100 Mg Capsule 100 Mg PO TIDWMEALS I have reviewed the current psychotropics carefully including drug interactions. Risk benefit ratio favors no change other than as noted in my dictated progress note. Diagnosis: Problems: (1) Anxiety disorder (2) Impulse control disorder (3) Bipolar affective disorder, mixed (4) Dementia, vascular, with delusions (5) Dementia with behavioral disturbance LIZ DIANE MD Aug 04, 2018 23:05
[2018-08-04 23:45] VITALS: BP 168/77
[2018-08-05 05:30] VITALS: BP 148/81
[2018-08-05] MEDS: DOXYCYCLINE HYCLATE 100 MG TABLET PO SCH ×2 (05:53→17:22)
[2018-08-05] MEDS: traMADol 50 MG TABLET PO PRN ×2 (05:54→14:17)
[2018-08-05] MEDS ORDERED: INSULIN LISPRO 300 UNITS/3 ML INSULN.PEN. SQ ONE (07:30)
[2018-08-05] MEDS: LOSARTAN 25 MG TABLET. PO SCH (08:32)
[2018-08-05] MEDS: LACTOBACILLUS RHAMNOSUS GG 1 CAPSULE. PO SCH ×2 (08:32→20:17)
[2018-08-05] MEDS: METOPROLOL SUCC 24HR ER 50 MG TAB.ER.24H. PO SCH (08:33)
[2018-08-05] MEDS: POTASSIUM CHLORIDE 20 MEQ TABLET.ER. PO SCH ×2 (08:33→17:22)
[2018-08-05] MEDS: FOLIC ACID 1 MG TABLET PO SCH (08:33)
[2018-08-05] MEDS: DULoxetine HCL 30 MG CAPSULE.DR PO SCH (08:33)
[2018-08-05] MEDS: CEFDINIR 300 MG CAPSULE PO SCH ×2 (08:33→20:17)
[2018-08-05] MEDS: GABAPENTIN 100 MG CAPSULE. PO SCH ×3 (08:34→17:21)
[2018-08-05] MEDS: DOCUSATE SODIUM 100 MG CAPSULE PO SCH (08:34)
[2018-08-05] MEDS: medroxyPROGESTERone 5 MG TABLET PO SCH (08:34)
[2018-08-05] MEDS: DIVALPROEX SODIUM 250 MG TABLET.DR. PO SCH ×2 (08:34→20:16)
[2018-08-05] MEDS: MULTIVITAMIN with MINERAL TABLET. PO SCH (08:34)
[2018-08-05] MEDS: FUROSEMIDE 40 MG TABLET PO SCH ×2 (08:34→12:35)
[2018-08-05] MEDS: THIAMINE 100 MG TABLET. PO SCH (08:34)
[2018-08-05] MEDS: NYSTATIN 100,000 UNIT/GM TOPICAL CREAM 15GM TUBE. TP SCH ×2 (08:38→20:19)
[2018-08-05 09:17] LABS: HEMATOCRIT 36.3 % (39.0-53.0); HEMOGLOBIN 12.5 g/dL (13.0-17.5); RED BLOOD COUNT 4.06 x10^6/uL (4.30-5.70); RED CELL DISTRIBUTION WIDTH 15.5 % (11.5-14.5); WHITE BLOOD COUNT 9.8 x10^3/uL (4.0-11.0)
[2018-08-05 09:31] LABS: ALBUMIN 2.8 g/dL (3.4-5.0); ALBUMIN/GLOBULIN RATIO 0.8 (1.0-1.7); CALCIUM 8.4 mg/dL (8.5-10.1); CREATININE 0.8 mg/dL (0.7-1.3); POTASSIUM 3.8 mmol/L (3.5-5.1); TOTAL BILIRUBIN 0.4 mg/dL (0.2-1.0); TOTAL PROTEIN 6.5 g/dL (6.4-8.2)
[2018-08-05 09:33] LABS: GFR 94.5
[2018-08-05] MEDS: INSULIN LISPRO 300 UNITS/3 ML INSULN.PEN. SQ SCH ×2 (12:37→17:23)
[2018-08-05 16:21] VITALS: BP 134/76
--- NOTE | 2018-08-05 17:00 | PN ---
DATE: 08/04/2018 PSYCHIATRIC PROGRESS NOTE This late entry 08/04/2018 covers elements not covered in my initial note. I met with the patient in the evening of 08/04/2018. IDENTIFYING DATA: The patient is a 73-year-old male who returns back to us from [facility] where he was transferred for wound care. He was on our unit prior to going to [place]. Plan was for him, perhaps to return to [facility] from [place], but he became extremely agitated, aggressive, disruptive, confused, throwing objects at staff member, grabbing nurses by their rear ends, resistive to medications, making vague statements, "I don't want to live like this." He had previously had active suicidal ideation with a plan to hang himself and there were concerns about hurting himself or others and referred back to us for inpatient psychiatric stabilization. CHIEF COMPLAINT: "Yes, I need to get things better." HISTORY OF PRESENT ILLNESS: The patient has a history of major depressive disorder. He has been with us on 2 or 3 occasions in the past. Initially after he was living in various motels, unable to take care of himself, depressed, psychotic. Since then, has been at the [facility] and most recently referred to us from the [facility] due to suicidal ideation with a plan to hang himself. He does have a history of mood swings, diagnosis of bipolar disorder. He does have some short-term memory deficits. PAST PSYCHIATRIC HISTORY: As above, history of significant alcohol abuse in the past. PAST MEDICAL HISTORY: Positive for hypertension, diabetes mellitus, bilateral heel ulcers, alcohol, and his dementia. Accu-Cheks a.c. and at bedtime, elevated blood sugars. CODE STATUS: FULL CODE. ALLERGIES: PENICILLIN, SULFA. CURRENT PSYCHOTROPICS: Depakote DR 500 mg b.i.d.; Cymbalta 30 mg a day, may need to be adjusted; gabapentin 100 mg t.i.d.; Zyprexa p.r.n.; Seroquel 25 mg at bedtime; BuSpar 10 mg daily; Provera 15 mg a day; trazodone 150 mg at bedtime. FAMILY HISTORY: Noncontributory. SOCIAL HISTORY: Alcohol abuse history as noted. to work in [place]. His son, Ildefonso, is closely involved in his care and placement options. REACTION TO HOSPITALIZATION: The patient accepting of this. ASSETS: Supportive family, stable living at the [facility]. MENTAL STATUS EXAM: The patient was seen individually on the evening of 08/04/2018. He is reasonably oriented to himself and situation. Speech has some latency, coherent, low in volume. Abstraction fair, computation impaired, language function intact, attention span short. Mood and affect appears somewhat depressed. He denies active suicidal ideation. Short term memory does have deficits. LABORATORY DATA: Reviewed. IMPRESSION: Major depressive disorder, recurrent with psychotic features, in partial remission; bipolar 1 disorder, depressed with psychotic features; cognitive disorder, unspecified; history of alcohol abuse or dependence. Rest unchanged from above. PLAN: Admit to geropsychiatry unit at [facility]. I will see the patient daily individually from a psychiatric standpoint, medical followup with Dr. Chapman. We will continue his current psychotropics. Consider increasing the Cymbalta to 60 mg a day. Social service staff will actively pursue appropriate placement. ESTIMATED LENGTH OF STAY: 7-10 days. MAN Newton DIANE MD DR: MATILDA/james JOB#: [id number] / [id number]
[2018-08-05] MEDS: QUEtiapine 25 MG TABLET. PO SCH (20:16)
[2018-08-05] MEDS: MELATONIN 3 MG TABLET PO SCH (20:16)
[2018-08-05] MEDS: INSULIN GLARGINE 300 UNITS/3 ML INSULN.PEN. SQ SCH (20:21)
--- NOTE | 2018-08-05 22:42 | PDOC ---
Exam Note: Adriano Note: Please also refer to the separate dictated note~for this date of service dictated separately.~Patient seen individually. Discussed the patient with Nursing staff reviewed the chart.~Reviewed interim history and current functioning. Reviewed vital signs,~Labs/ Radiology~and current medications noted below. Continue current treatment with the changes noted in the dictated addendum note Assessment: Vital Signs: Vital Signs Date Time Temp Pulse Resp B/P (MAP) Pulse Ox O2 Delivery O2 Flow Rate FiO2 08/05/18 20:17 64 134/76 08/05/18 16:21 97.8 16 98 Room Air I&O Intake and Output 08/05/18 06:59 Intake Total 1560 ml Balance 1560 ml Intake Oral 1560 ml # Voids 1 Labs: Laboratory Tests Test 08/05/18 07:39 08/05/18 09:06 08/05/18 12:20 08/05/18 16:37 Glucose (Fingerstick) 110 mg/dL (70-99) H 147 mg/dL (70-99) H 244 mg/dL (70-99) H White Blood Count 9.8 x10^3/uL (4.0-11.0) Red Blood Count 4.06 x10^6/uL (4.30-5.70) L Hemoglobin 12.5 g/dL (13.0-17.5) L Hematocrit 36.3 % (39.0-53.0) L Mean Corpuscular Volume 89 fL (79-100) Mean Corpuscular Hemoglobin 31 pg (25-35) Mean Corpuscular Hemoglobin Concent 35 g/dL (31-37) Red Cell Distribution Width 15.5 % (11.5-14.5) H Platelet Count 147 x10^3/uL (140-400) Sodium Level 142 mmol/L (136-145) Potassium Level 3.8 mmol/L (3.5-5.1) Chloride Level 106 mmol/L (98-107) Carbon Dioxide Level 29 mmol/L (21-32) Anion Gap 7 (6-14) Blood Urea Nitrogen 16 mg/dL (8-26) Creatinine 0.8 mg/dL (0.7-1.3) Estimated GFR (Cockcroft-Gault) 94.5 BUN/Creatinine Ratio 20 (6-20) Glucose Level 94 mg/dL (70-99) Calcium Level 8.4 mg/dL (8.5-10.1) L Total Bilirubin 0.4 mg/dL (0.2-1.0) Aspartate Amino Transferase (AST) 19 U/L (15-37) Alanine Aminotransferase (ALT) 12 U/L (16-63) L Alkaline Phosphatase 57 U/L (46-116) Total Protein 6.5 g/dL (6.4-8.2) Albumin 2.8 g/dL (3.4-5.0) L Albumin/Globulin Ratio 0.8 (1.0-1.7) L Test 08/05/18 19:29 Glucose (Fingerstick) 242 mg/dL (70-99) H Current Medications: Meds: Current Medications Acetaminophen (Tylenol) 650 mg PRN Q6HRS PRN PO PAIN / TEMP Last administered on 08/03/18at 22:20; Start 08/03/18 at 21:45 Gabapentin (Neurontin) 100 mg TIDWMEALS PO Last administered on 08/05/18at 17:21 ; Start 08/04/18 at 08:00 Insulin Glargine (Lantus) 30 units QHS SQ ; Start 08/04/18 at 21:00; Stop at 21:00; Status DC Losartan Potassium (Cozaar) 25 mg DAILY PO Last administered on 08/05/18at 08:32 ; Start 08/04/18 at 09:00 Al Hydroxide/Mg Hydroxide (Mylanta Plus Xs) 15 ml PRN AFTMEALHC PRN PO DYSPEPSIA; Start 08/03/18 at 21:45 Multi-Ingredient Ointment (Analgesic [place]) 1 raquel PRN QID PRN TP MUSCLE PAIN; Start 08/03/18 at 21:45 Potassium Chloride (Klor-Con) 20 meq BIDWMEALS PO Last administered on at 17:22; Start 08/04/18 at 08:00 Tramadol HCl (Ultram) 50 mg PRN QHS PRN PO PAIN Last administered on 08/03/18at 22:20; Start 08/03/18 at 22:15; Stop 08/04/18 at 01:08; Status DC Tramadol HCl (Ultram) 50 mg PRN DAILY PRN PO PAIN; Start 08/03/18 at 21:45; Stop 08/04/18 at 01:08; Status DC Buspirone HCl (Buspar) 10 mg DAILY PO ; Start 08/04/18 at 09:00; Stop 08/04/18 at 09:00; Status DC Divalproex Sodium (Depakote Er) 500 mg BID PO Last administered on 08/04/18 08 :27; Start 08/04/18 at 09:00; Stop 08/04/18 at 13:30; Status DC Docusate Sodium (Colace) 200 mg DAILY PO Last administered on 08/05/18 08:34; Start 08/04/18 at 09:00 Duloxetine HCl (Cymbalta) 30 mg DAILY PO Last administered on 08/05/18 08:33; Start 08/04/18 at 09:00; Stop 08/05/18 at 11:09; Status DC Folic Acid (Folic Acid) 1 mg DAILY PO Last administered on 08/05/18 08:33; Start 08/04/18 at 09:00 Furosemide (Lasix) 40 mg BIDACBL PO Last administered on 08/05/18at 12:35; Start 08/04/18 at 07:30 Hydralazine HCl (Apresoline) 50 mg TID PO Last administered on 08/05/18 20:17 ; Start 08/04/18 at 09:00 Insulin Human Lispro (HumaLOG) TID ac TIDAC SQ ; Start 08/04/18 at 07:30; Stop 08/04/18 at 07:30; Status DC Insulin Human Lispro (HumaLOG) 10 units TIDAC SQ ; Start 08/04/18 at 07:30; Stop 08/04/18 at 07:30; Status DC Magnesium Hydroxide (Milk Of Magnesia) 2,400 mg PRN DAILY PRN PO CONSTIPATION; Start 08/03/18 at 22:00 Medroxyprogesterone Acetate (Provera) 15 mg DAILY PO Last administered on 08:34; Start 08/04/18 at 09:00 Melatonin 3 mg QHS PO Last administered on 08/05/18at 20:16; Start 08/04/18 at 21:00 Metoprolol Succinate (Toprol Xl) 100 mg DAILY PO Last administered on 3/28/ 19at 08:33; Start 08/04/18 at 09:00 Multivitamins/ Calcium (Thera-M Plus) 1 tab DAILY PO Last administered on at 08:34; Start 08/04/18 at 09:00 Olanzapine (ZyPREXA) 2.5 mg PRN Q2HR PRN PO AGITATION; Start 08/03/18 at 22:00 Ondansetron HCl (Zofran Odt) 4 mg PRN Q6HRS PRN PO NAUSEA/VOMITING; Start 08/03 at 22:00 Quetiapine Fumarate (SEROquel) 25 mg QHS PO Last administered on 08/05/18at 20: 16; Start 08/04/18 at 21:00 Thiamine HCl (Vitamin B-1) 100 mg DAILY PO Last administered on 08/05/18at 08:34 ; Start 08/04/18 at 09:00 Trazodone HCl (Desyrel) 150 mg PRN QHS PRN PO INSOMNIA; Start 08/03/18 at 22:15 Triamcinolone Acetonide (Kenalog) 1 raquel PRN DAILY PRN TP RASH; Start 08/03/18 at 22:15 Lidocaine (Xylocaine) 1 raquel PRN DAILY PRN TP PAIN; Start 08/03/18 at 22:15; Stop 08/04/18 at 14:03; Status DC Insulin Glargine (Lantus) 30 units QHS SQ ; Start 08/04/18 at 21:00; Stop at 21:00; Status DC Insulin Human Lispro (HumaLOG) 0-7 UNITS TIDWMEALS PRN SQ ELEVATED BS; Start at 00:15 Dextrose 12.5 gm PRN Q15MIN PRN IV SEE COMMENTS; Start 08/04/18 at 00:15 Glucose (Insta-Glucose) 15 gm PRN Q15MIN PRN PO LOW BLOOD SUGAR; Start at 00:15 Insulin Human Lispro (HumaLOG) 10 units TIDAC SQ Last administered on at 12:22; Start 08/04/18 at 07:30; Stop 08/04/18 at 17:33; Status DC Buspirone HCl (Buspar) 10 mg PRN DAILY PRN PO ANXIETY / AGITATION; Start at 09:00 Tramadol HCl (Ultram) 50 mg PRN BID PRN PO PAIN Last administered on 08/05/18 14:17; Start 08/04/18 at 01:15 Lactobacillus Rhamnosus (Culturelle) 1 cap BID PO Last administered on at 20:17; Start 08/04/18 at 09:00 Nystatin (Mycostatin) 1 raquel BID TP Last administered on 08/05/18 20:19; Start 08/04/18 at 09:00 Cefpodoxime Proxetil (Vantin) 200 mg BID PO ; Start 08/04/18 at 09:00; Stop at 09:00; Status DC Doxycycline Hyclate (Vibra-Tab) 100 mg [id number] PO Last administered on 08/05/18 17:22; Start 08/04/18 at 06:00 Cefdinir (Omnicef) 300 mg BID PO Last administered on 08/05/18at 20:17; Start at 09:00 Divalproex Sodium (Depakote) 500 mg BID PO Last administered on 08/05/18at 20:16 ; Start 08/04/18 at 21:00 Lidocaine (Xylocaine) 1 raquel PRN DAILY PRN TP PAIN; Start 08/04/18 at 14:15 Insulin Glargine (Lantus) 40 units QHS SQ Last administered on 08/05/18at 20:21 ; Start 08/04/18 at 21:00 Insulin Human Lispro (HumaLOG) 15 units TIDAC SQ Last administered on at 17:23; Start 08/05/18 at 07:30 Insulin Human Lispro (HumaLOG) 15 units 1X ONCE SQ Last administered on at 09:39; Start 08/05/18 at 07:30; Stop 08/05/18 at 09:28; Status DC Duloxetine HCl (Cymbalta) 60 mg DAILY PO ; Start 08/06/18 at 09:00 Active Scripts Active Reported Cozaar (Losartan Potassium) 25 Mg Tablet 25 Mg PO DAILY Tramadol Hcl (Tramadol HCl) 50 Mg Tablet 50 Mg PO HS PRN Hydralazine Hcl 50 Mg Tablet 50 Mg PO TID Zyprexa (Olanzapine) 2.5 Mg Tablet 2.5 Mg PO PRN Q2HR PRN Metoprolol Succinate ( Xl ) (Metoprolol Succinate) 100 Mg Tab.er.24h 100 Mg PO DAILY Analgesic [place] (Methyl Salicylate/Menthol) 28 Gm Oint...g. 1 Raquel TP PRN QID PRN Mag-Al Plus Xs Suspension (Mag Hydrox/Al Hydrox/Simeth) 30 Ml Oral.susp 15 Ml PO PRN AFTMEALHC PRN Humalog (Insulin Lispro) 100 Unit/1 Ml Cartridge 10 Unit SQ TIDAC Lantus Solostar (Insulin Glargine,Hum.rec.anlog) 100 Unit/1 Ml Insuln.pen 30 Unit SQ QHS Duloxetine Hcl 30 Mg Capsule.dr 30 Mg PO DAILY Depakote (Divalproex Sodium) 500 Mg Tablet.dr 500 Mg PO BID Seroquel (Quetiapine Fumarate) 25 Mg Tablet 25 Mg PO HS Triamcinolone Acetonide 15 Gm Cream..g. 1 Raquel TP PRN DAILY PRN Ondansetron Odt (Ondansetron) 4 Mg Tab.rapdis 4 Mg PO PRN Q6HRS PRN Furosemide 40 Mg Tablet 60 Mg PO BIDACBL Acetaminophen 325 Mg Tablet 650 Mg PO PRN Q6HRS PRN Tramadol Hcl (Tramadol HCl) 50 Mg Tablet 50 Mg PO PRN DAILY PRN [Lidocaine Oint 5%] 1 Raquel TP PRN DAILY Apply to heel prior to wound debridement. One Daily Plus Minerals (Multivitamin With Minerals) 1 Each Tablet 1 Tab PO DAILY Docusate Sodium 100 Mg Capsule 200 Mg PO DAILY Humalog (Insulin Lispro) 100 Unit/1 Ml Cartridge 0-7 Unit SQ TIDAC For BG <70 units, notify provider IF EATING IF NOT EATING B-150 0 units 0 units B-200 3 units 0 units B-250 4 units 2 units B-300 6 units 3 units B-350 7 units 4 units BG <60 or >351 notify provider Trazodone Hcl 150 Mg Tablet 1 Tab PO QHS Medroxyprogesterone Acetate 10 Mg Tablet 15 Mg PO DAILY Buspirone Hcl 10 Mg Tablet 1 Tab PO DAILY Klor-Con M20 (Potassium Chloride) 20 Meq Tab.er.prt 1 Tab PO BIDWMEALS Melatonin 3 Mg Tablet 1 Tab PO QHS Milk Of Magnesia (Magnesium Hydroxide) 2,400 Mg/10 Ml Oral.susp 2,400 Mg PO PRN DAILY PRN Thiamine Hcl 100 Mg Tablet 100 Mg PO DAILY Folic Acid 1 Mg Tablet 1 Tab PO DAILY Gabapentin (Gabapentin) 100 Mg Capsule 100 Mg PO TIDWMEALS I have reviewed the current psychotropics carefully including drug interactions. Risk benefit ratio favors no change other than as noted in my dictated progress note. Diagnosis: Problems: (1) Anxiety disorder (2) Impulse control disorder (3) Bipolar affective disorder, mixed (4) Dementia, vascular, with delusions (5) Dementia with behavioral disturbance LIZ DIANE MD Aug 05, 2018 22:42
[2018-08-06] MEDS: OLANZapine 2.5 MG TABLET PO PRN (02:27)
[2018-08-06] MEDS: DOXYCYCLINE HYCLATE 100 MG TABLET PO SCH ×2 (05:46→17:58)
[2018-08-06 06:00] VITALS: BP 157/79
[2018-08-06] MEDS: INSULIN LISPRO 300 UNITS/3 ML INSULN.PEN. SQ SCH ×3 (07:30→18:02)
[2018-08-06] MEDS: FUROSEMIDE 40 MG TABLET PO SCH ×3 (07:30→12:45)
[2018-08-06] MEDS: GABAPENTIN 100 MG CAPSULE. PO SCH ×4 (08:00→18:00)
[2018-08-06] MEDS: NYSTATIN 100,000 UNIT/GM TOPICAL CREAM 15GM TUBE. TP SCH ×2 (09:00→20:50)
[2018-08-06] MEDS: METOPROLOL SUCC 24HR ER 50 MG TAB.ER.24H. PO SCH (12:12)
[2018-08-06] MEDS: medroxyPROGESTERone 5 MG TABLET PO SCH (12:12)
[2018-08-06] MEDS: DIVALPROEX SODIUM 250 MG TABLET.DR. PO SCH ×2 (12:13→20:50)
[2018-08-06] MEDS: DOCUSATE SODIUM 100 MG CAPSULE PO SCH (12:14)
[2018-08-06] MEDS: CEFDINIR 300 MG CAPSULE PO SCH ×2 (12:15→20:50)
[2018-08-06] MEDS: LOSARTAN 25 MG TABLET. PO SCH (12:15)
[2018-08-06] MEDS: LACTOBACILLUS RHAMNOSUS GG 1 CAPSULE. PO SCH ×2 (12:15→20:50)
[2018-08-06] MEDS: FOLIC ACID 1 MG TABLET PO SCH (12:16)
[2018-08-06] MEDS: THIAMINE 100 MG TABLET. PO SCH (12:16)
[2018-08-06] MEDS: POTASSIUM CHLORIDE 20 MEQ TABLET.ER. PO SCH ×2 (12:16→18:00)
[2018-08-06] MEDS: MULTIVITAMIN with MINERAL TABLET. PO SCH (12:16)
[2018-08-06] MEDS: DULoxetine HCL 60 MG CAPSULE.DR PO SCH (12:19)
[2018-08-06 16:05] VITALS: BP 133/79
[2018-08-06] MEDS: QUEtiapine 25 MG TABLET. PO SCH (20:50)
[2018-08-06] MEDS: MELATONIN 3 MG TABLET PO SCH (20:50)
[2018-08-06] MEDS: INSULIN GLARGINE 300 UNITS/3 ML INSULN.PEN. SQ SCH (20:54)
[2018-08-06] MEDS: traMADol 50 MG TABLET PO PRN (21:03)
--- NOTE | 2018-08-06 21:25 | PN ---
DATE: 08/05/2018 PSYCHIATRIC PROGRESS NOTE This late entry 08/05/2018 covers elements not covered in my initial note. SUBJECTIVE: I met with the patient in the evening and staffed at a treatment team meeting with the entire team and the patient's son, Ildefonso, attending. Reviewed his historical information diagnosis, medications, possible transition to a detention in [place]. Appetite 100%, slept 6 hours, less agitated, still depressed. REVIEW OF SYSTEMS: No CV, , pulmonary, eye system symptoms on review. Gait unsteady. MENTAL STATUS EXAM: Oriented to himself. Insight, judgment, recent and remote memory, attention, concentration, fund of knowledge poor, consistent with his diagnosis mentioned in my initial note. PLAN: Increase Cymbalta from 30 to 60 mg a day. Rest unchanged per initial note. MAN Newton DIANE MD DR: MATILDA/james JOB#: [id number] / [id number]
--- NOTE | 2018-08-06 22:47 | PDOC ---
Exam Note: Adriano Note: Please also refer to the separate dictated note~for this date of service dictated separately.~Patient seen individually. Discussed the patient with Nursing staff reviewed the chart.~Reviewed interim history and current functioning. Reviewed vital signs,~Labs/ Radiology~and current medications noted below. Continue current treatment with the changes noted in the dictated addendum note Assessment: Vital Signs: Vital Signs Date Time Temp Pulse Resp B/P (MAP) Pulse Ox O2 Delivery O2 Flow Rate FiO2 08/06/18 21:03 18 Room Air 08/06/18 20:50 71 133/79 08/06/18 16:05 98.5 97 I&O Intake and Output 08/06/18 06:59 Intake Total 720 ml Balance 720 ml Intake Oral 720 ml # Voids 1 Labs: Laboratory Tests Test 08/06/18 07:22 08/06/18 12:03 08/06/18 16:35 08/06/18 19:43 Glucose (Fingerstick) 202 mg/dL (70-99) H 133 mg/dL (70-99) H 161 mg/dL (70-99) H 244 mg/dL (70-99) H Current Medications: Meds: Current Medications Acetaminophen (Tylenol) 650 mg PRN Q6HRS PRN PO PAIN / TEMP Last administered on 08/03/18at 22:20; Start 08/03/18 at 21:45 Gabapentin (Neurontin) 100 mg TIDWMEALS PO Last administered on 08/06/18at 18:00 ; Start 08/04/18 at 08:00 Insulin Glargine (Lantus) 30 units QHS SQ ; Start 08/04/18 at 21:00; Stop at 21:00; Status DC Losartan Potassium (Cozaar) 25 mg DAILY PO Last administered on 08/06/18at 12:15 ; Start 08/04/18 at 09:00 Al Hydroxide/Mg Hydroxide (Mylanta Plus Xs) 15 ml PRN AFTMEALHC PRN PO DYSPEPSIA; Start 08/03/18 at 21:45 Multi-Ingredient Ointment (Analgesic Patch [place]) 1 raquel PRN QID PRN TP MUSCLE PAIN; Start 08/03/18 at 21:45 Potassium Chloride (Klor-Con) 20 meq BIDWMEALS PO Last administered on at 18:00; Start 08/04/18 at 08:00 Tramadol HCl (Ultram) 50 mg PRN QHS PRN PO PAIN Last administered on 08/03/18at 22:20; Start 08/03/18 at 22:15; Stop 08/04/18 at 01:08; Status DC Tramadol HCl (Ultram) 50 mg PRN DAILY PRN PO PAIN; Start 08/03/18 at 21:45; Stop 08/04/18 at 01:08; Status DC Buspirone HCl (Buspar) 10 mg DAILY PO ; Start 08/04/18 at 09:00; Stop 08/04/18 at 09:00; Status DC Divalproex Sodium (Depakote Er) 500 mg BID PO Last administered on 08/04/18at 08 :27; Start 08/04/18 at 09:00; Stop 08/04/18 at 13:30; Status DC Docusate Sodium (Colace) 200 mg DAILY PO Last administered on 08/06/18at 12:14; Start 08/04/18 at 09:00 Duloxetine HCl (Cymbalta) 30 mg DAILY PO Last administered on 08/05/18at 08:33; Start 08/04/18 at 09:00; Stop 08/05/18 at 11:09; Status DC Folic Acid (Folic Acid) 1 mg DAILY PO Last administered on 08/06/18at 12:16; Start 08/04/18 at 09:00 Furosemide (Lasix) 40 mg BIDACBL PO Last administered on 08/06/18at 12:45; Start 08/04/18 at 07:30 Hydralazine HCl (Apresoline) 50 mg TID PO Last administered on 08/06/18at 20:50 ; Start 08/04/18 at 09:00 Insulin Human Lispro (HumaLOG) TID ac TIDAC SQ ; Start 08/04/18 at 07:30; Stop 08/04/18 at 07:30; Status DC Insulin Human Lispro (HumaLOG) 10 units TIDAC SQ ; Start 08/04/18 at 07:30; Stop 08/04/18 at 07:30; Status DC Magnesium Hydroxide (Milk Of Magnesia) 2,400 mg PRN DAILY PRN PO CONSTIPATION; Start 08/03/18 at 22:00 Medroxyprogesterone Acetate (Provera) 15 mg DAILY PO Last administered on 12:12; Start 08/04/18 at 09:00 Melatonin 3 mg QHS PO Last administered on 08/06/18 20:50; Start 08/04/18 at 21:00 Metoprolol Succinate (Toprol Xl) 100 mg DAILY PO Last administered on 12:12; Start 08/04/18 at 09:00 Multivitamins/ Calcium (Thera-M Plus) 1 tab DAILY PO Last administered on 12:16; Start 08/04/18 at 09:00 Olanzapine (ZyPREXA) 2.5 mg PRN Q2HR PRN PO AGITATION Last administered on 08/06 02:27; Start 08/03/18 at 22:00 Ondansetron HCl (Zofran Odt) 4 mg PRN Q6HRS PRN PO NAUSEA/VOMITING; Start 08/03 at 22:00 Quetiapine Fumarate (SEROquel) 25 mg QHS PO Last administered on 08/06/18 20: 50; Start 08/04/18 at 21:00 Thiamine HCl (Vitamin B-1) 100 mg DAILY PO Last administered on 08/06/18 12:16 ; Start 08/04/18 at 09:00 Trazodone HCl (Desyrel) 150 mg PRN QHS PRN PO INSOMNIA Last administered on 02:27; Start 08/03/18 at 22:15 Triamcinolone Acetonide (Kenalog) 1 raquel PRN DAILY PRN TP RASH; Start 08/03/18 at 22:15 Lidocaine (Xylocaine) 1 raquel PRN DAILY PRN TP PAIN; Start 08/03/18 at 22:15; Stop 08/04/18 at 14:03; Status DC Insulin Glargine (Lantus) 30 units QHS SQ ; Start 08/04/18 at 21:00; Stop at 21:00; Status DC Insulin Human Lispro (HumaLOG) 0-7 UNITS TIDWMEALS PRN SQ ELEVATED BS; Start at 00:15 Dextrose 12.5 gm PRN Q15MIN PRN IV SEE COMMENTS; Start 08/04/18 at 00:15 Glucose (Insta-Glucose) 15 gm PRN Q15MIN PRN PO LOW BLOOD SUGAR; Start at 00:15 Insulin Human Lispro (HumaLOG) 10 units TIDAC SQ Last administered on at 12:22; Start 08/04/18 at 07:30; Stop 08/04/18 at 17:33; Status DC Buspirone HCl (Buspar) 10 mg PRN DAILY PRN PO ANXIETY / AGITATION; Start at 09:00 Tramadol HCl (Ultram) 50 mg PRN BID PRN PO PAIN Last administered on 08/06/18 21:03; Start 08/04/18 at 01:15 Lactobacillus Rhamnosus (Culturelle) 1 cap BID PO Last administered on 20:50; Start 08/04/18 at 09:00 Nystatin (Mycostatin) 1 raquel BID TP Last administered on 08/06/18 20:50; Start 08/04/18 at 09:00 Cefpodoxime Proxetil (Vantin) 200 mg BID PO ; Start 08/04/18 at 09:00; Stop at 09:00; Status DC Doxycycline Hyclate (Vibra-Tab) 100 mg [id number] PO Last administered on 08/06/18 17:58; Start 08/04/18 at 06:00 Cefdinir (Omnicef) 300 mg BID PO Last administered on 08/06/18 20:50; Start at 09:00 Divalproex Sodium (Depakote) 500 mg BID PO Last administered on 08/06/18 20:50 ; Start 08/04/18 at 21:00 Lidocaine (Xylocaine) 1 raquel PRN DAILY PRN TP PAIN; Start 08/04/18 at 14:15 Insulin Glargine (Lantus) 40 units QHS SQ Last administered on 08/06/18 20:54 ; Start 08/04/18 at 21:00 Insulin Human Lispro (HumaLOG) 15 units TIDAC SQ Last administered on 18:02; Start 08/05/18 at 07:30 Insulin Human Lispro (HumaLOG) 15 units 1X ONCE SQ Last administered on 09:39; Start 08/05/18 at 07:30; Stop 08/05/18 at 09:28; Status DC Duloxetine HCl (Cymbalta) 60 mg DAILY PO Last administered on 08/06/18at 12:19; Start 08/06/18 at 09:00 Active Scripts Active Reported Cozaar (Losartan Potassium) 25 Mg Tablet 25 Mg PO DAILY Tramadol Hcl (Tramadol HCl) 50 Mg Tablet 50 Mg PO HS PRN Hydralazine Hcl 50 Mg Tablet 50 Mg PO TID Zyprexa (Olanzapine) 2.5 Mg Tablet 2.5 Mg PO PRN Q2HR PRN Metoprolol Succinate ( Xl ) (Metoprolol Succinate) 100 Mg Tab.er.24h 100 Mg PO DAILY Analgesic Patch [place] (Methyl Salicylate/Menthol) 28 Gm Oint...g. 1 Raquel TP PRN QID PRN Mag-Al Plus Xs Suspension (Mag Hydrox/Al Hydrox/Simeth) 30 Ml Oral.susp 15 Ml PO PRN AFTMEALHC PRN Humalog (Insulin Lispro) 100 Unit/1 Ml Cartridge 10 Unit SQ TIDAC Lantus Solostar (Insulin Glargine,Hum.rec.anlog) 100 Unit/1 Ml Insuln.pen 30 Unit SQ QHS Duloxetine Hcl 30 Mg Capsule.dr 30 Mg PO DAILY Depakote (Divalproex Sodium) 500 Mg Tablet.dr 500 Mg PO BID Seroquel (Quetiapine Fumarate) 25 Mg Tablet 25 Mg PO HS Triamcinolone Acetonide 15 Gm Cream..g. 1 Raquel TP PRN DAILY PRN Ondansetron Odt (Ondansetron) 4 Mg Tab.rapdis 4 Mg PO PRN Q6HRS PRN Furosemide 40 Mg Tablet 60 Mg PO BIDACBL Acetaminophen 325 Mg Tablet 650 Mg PO PRN Q6HRS PRN Tramadol Hcl (Tramadol HCl) 50 Mg Tablet 50 Mg PO PRN DAILY PRN [Lidocaine Oint 5%] 1 Raquel TP PRN DAILY Apply to heel prior to wound debridement. One Daily Plus Minerals (Multivitamin With Minerals) 1 Each Tablet 1 Tab PO DAILY Docusate Sodium 100 Mg Capsule 200 Mg PO DAILY Humalog (Insulin Lispro) 100 Unit/1 Ml Cartridge 0-7 Unit SQ TIDAC For BG <70 units, notify provider IF EATING IF NOT EATING B-150 0 units 0 units B-200 3 units 0 units B-250 4 units 2 units B-300 6 units 3 units B-350 7 units 4 units BG <60 or >351 notify provider Trazodone Hcl 150 Mg Tablet 1 Tab PO QHS Medroxyprogesterone Acetate 10 Mg Tablet 15 Mg PO DAILY Buspirone Hcl 10 Mg Tablet 1 Tab PO DAILY Klor-Con M20 (Potassium Chloride) 20 Meq Tab.er.prt 1 Tab PO BIDWMEALS Melatonin 3 Mg Tablet 1 Tab PO QHS Milk Of Magnesia (Magnesium Hydroxide) 2,400 Mg/10 Ml Oral.susp 2,400 Mg PO PRN DAILY PRN Thiamine Hcl 100 Mg Tablet 100 Mg PO DAILY Folic Acid 1 Mg Tablet 1 Tab PO DAILY Gabapentin (Gabapentin) 100 Mg Capsule 100 Mg PO TIDWMEALS I have reviewed the current psychotropics carefully including drug interactions. Risk benefit ratio favors no change other than as noted in my dictated progress note. Diagnosis: Problems: (1) Anxiety disorder (2) Impulse control disorder (3) Bipolar affective disorder, mixed (4) Dementia, vascular, with delusions (5) Dementia with behavioral disturbance LIZ DIANE MD Aug 06, 2018 22:47
[2018-08-07] MEDS: DOXYCYCLINE HYCLATE 100 MG TABLET PO SCH ×2 (05:54→16:26)
[2018-08-07 06:07] VITALS: BP 150/77
[2018-08-07] MEDS: NYSTATIN 100,000 UNIT/GM TOPICAL CREAM 15GM TUBE. TP SCH ×2 (08:49→20:08)
[2018-08-07] MEDS: POTASSIUM CHLORIDE 20 MEQ TABLET.ER. PO SCH ×2 (08:50→16:26)
[2018-08-07] MEDS: DULoxetine HCL 60 MG CAPSULE.DR PO SCH (08:50)
[2018-08-07] MEDS: LOSARTAN 25 MG TABLET. PO SCH (08:50)
[2018-08-07] MEDS: LACTOBACILLUS RHAMNOSUS GG 1 CAPSULE. PO SCH ×2 (08:51→20:06)
[2018-08-07] MEDS: FUROSEMIDE 40 MG TABLET PO SCH ×2 (08:51→12:09)
[2018-08-07] MEDS: FOLIC ACID 1 MG TABLET PO SCH (08:51)
[2018-08-07] MEDS: THIAMINE 100 MG TABLET. PO SCH (08:51)
[2018-08-07] MEDS: medroxyPROGESTERone 5 MG TABLET PO SCH (08:51)
[2018-08-07] MEDS: MULTIVITAMIN with MINERAL TABLET. PO SCH (08:51)
[2018-08-07] MEDS: DOCUSATE SODIUM 100 MG CAPSULE PO SCH (08:51)
[2018-08-07] MEDS: CEFDINIR 300 MG CAPSULE PO SCH ×2 (08:51→20:06)
[2018-08-07] MEDS: DIVALPROEX SODIUM 250 MG TABLET.DR. PO SCH ×2 (08:51→20:06)
[2018-08-07] MEDS: METOPROLOL SUCC 24HR ER 50 MG TAB.ER.24H. PO SCH (08:52)
[2018-08-07] MEDS: GABAPENTIN 100 MG CAPSULE. PO SCH ×3 (08:54→16:26)
[2018-08-07] MEDS: INSULIN LISPRO 300 UNITS/3 ML INSULN.PEN. SQ SCH ×3 (08:59→16:30)
[2018-08-07 17:25] VITALS: BP 144/71
[2018-08-07] MEDS: OLANZapine 2.5 MG TABLET PO PRN (18:45)
[2018-08-07] MEDS: QUEtiapine 25 MG TABLET. PO SCH (20:06)
[2018-08-07] MEDS: MELATONIN 3 MG TABLET PO SCH (20:06)
[2018-08-07] MEDS: INSULIN GLARGINE 300 UNITS/3 ML INSULN.PEN. SQ SCH (20:08)
--- NOTE | 2018-08-07 22:41 | PDOC ---
Exam Note: Adriano Note: Please also refer to the separate dictated note~for this date of service dictated separately.~Patient seen individually. Discussed the patient with Nursing staff reviewed the chart.~Reviewed interim history and current functioning. Reviewed vital signs,~Labs/ Radiology~and current medications noted below. Continue current treatment with the changes noted in the dictated addendum note Assessment: Vital Signs: Vital Signs Date Time Temp Pulse Resp B/P (MAP) Pulse Ox O2 Delivery O2 Flow Rate FiO2 08/07/18 20:06 71 144/71 08/07/18 17:25 98.4 16 95 08/06/18 22:03 Room Air I&O Intake and Output 08/07/18 07:00 Intake Total 1080 ml Balance 1080 ml Intake Oral 1080 ml # Voids 1 Labs: Laboratory Tests Test 08/07/18 07:10 08/07/18 11:44 08/07/18 16:56 08/07/18 19:42 Glucose (Fingerstick) 162 mg/dL (70-99) H 222 mg/dL (70-99) H 144 mg/dL (70-99) H 164 mg/dL (70-99) H Current Medications: Meds: Current Medications Acetaminophen (Tylenol) 650 mg PRN Q6HRS PRN PO PAIN / TEMP Last administered on 08/03/18at 22:20; Start 08/03/18 at 21:45 Gabapentin (Neurontin) 100 mg TIDWMEALS PO Last administered on 08/07/18at 16:26 ; Start 08/04/18 at 08:00 Insulin Glargine (Lantus) 30 units QHS SQ ; Start 08/04/18 at 21:00; Stop at 21:00; Status DC Losartan Potassium (Cozaar) 25 mg DAILY PO Last administered on 08/07/18at 08:50 ; Start 08/04/18 at 09:00 Al Hydroxide/Mg Hydroxide (Mylanta Plus Xs) 15 ml PRN AFTMEALHC PRN PO DYSPEPSIA; Start 08/03/18 at 21:45 Multi-Ingredient Ointment (Analgesic [place]) 1 raquel PRN QID PRN TP MUSCLE PAIN; Start 08/03/18 at 21:45 Potassium Chloride (Klor-Con) 20 meq BIDWMEALS PO Last administered on at 16:26; Start 08/04/18 at 08:00 Tramadol HCl (Ultram) 50 mg PRN QHS PRN PO PAIN Last administered on 08/03/18at 22:20; Start 08/03/18 at 22:15; Stop 08/04/18 at 01:08; Status DC Tramadol HCl (Ultram) 50 mg PRN DAILY PRN PO PAIN; Start 08/03/18 at 21:45; Stop 08/04/18 at 01:08; Status DC Buspirone HCl (Buspar) 10 mg DAILY PO ; Start 08/04/18 at 09:00; Stop 08/04/18 at 09:00; Status DC Divalproex Sodium (Depakote Er) 500 mg BID PO Last administered on 08/04/18at 08 :27; Start 08/04/18 at 09:00; Stop 08/04/18 at 13:30; Status DC Docusate Sodium (Colace) 200 mg DAILY PO Last administered on 08/07/18 08:51; Start 08/04/18 at 09:00 Duloxetine HCl (Cymbalta) 30 mg DAILY PO Last administered on 08/05/18at 08:33; Start 08/04/18 at 09:00; Stop 08/05/18 at 11:09; Status DC Folic Acid (Folic Acid) 1 mg DAILY PO Last administered on 08/07/18at 08:51; Start 08/04/18 at 09:00 Furosemide (Lasix) 40 mg BIDACBL PO Last administered on 08/07/18 12:09; Start 08/04/18 at 07:30 Hydralazine HCl (Apresoline) 50 mg TID PO Last administered on 08/07/18at 20:06 ; Start 08/04/18 at 09:00 Insulin Human Lispro (HumaLOG) TID ac TIDAC SQ ; Start 08/04/18 at 07:30; Stop 08/04/18 at 07:30; Status DC Insulin Human Lispro (HumaLOG) 10 units TIDAC SQ ; Start 08/04/18 at 07:30; Stop 08/04/18 at 07:30; Status DC Magnesium Hydroxide (Milk Of Magnesia) 2,400 mg PRN DAILY PRN PO CONSTIPATION; Start 08/03/18 at 22:00 Medroxyprogesterone Acetate (Provera) 15 mg DAILY PO Last administered on 08:51; Start 08/04/18 at 09:00 Melatonin 3 mg QHS PO Last administered on 08/07/18 20:06; Start 08/04/18 at 21:00 Metoprolol Succinate (Toprol Xl) 100 mg DAILY PO Last administered on 08:52; Start 08/04/18 at 09:00 Multivitamins/ Calcium (Thera-M Plus) 1 tab DAILY PO Last administered on 08:51; Start 08/04/18 at 09:00 Olanzapine (ZyPREXA) 2.5 mg PRN Q2HR PRN PO AGITATION Last administered on 08/07 18:45; Start 08/03/18 at 22:00 Ondansetron HCl (Zofran Odt) 4 mg PRN Q6HRS PRN PO NAUSEA/VOMITING; Start 08/03 at 22:00 Quetiapine Fumarate (SEROquel) 25 mg QHS PO Last administered on 08/07/18 20: 06; Start 08/04/18 at 21:00 Thiamine HCl (Vitamin B-1) 100 mg DAILY PO Last administered on 08/07/18 08:51 ; Start 08/04/18 at 09:00 Trazodone HCl (Desyrel) 150 mg PRN QHS PRN PO INSOMNIA Last administered on 02:27; Start 08/03/18 at 22:15 Triamcinolone Acetonide (Kenalog) 1 raquel PRN DAILY PRN TP RASH; Start 08/03/18 at 22:15 Lidocaine (Xylocaine) 1 raquel PRN DAILY PRN TP PAIN; Start 08/03/18 at 22:15; Stop 08/04/18 at 14:03; Status DC Insulin Glargine (Lantus) 30 units QHS SQ ; Start 08/04/18 at 21:00; Stop at 21:00; Status DC Insulin Human Lispro (HumaLOG) 0-7 UNITS TIDWMEALS PRN SQ ELEVATED BS; Start at 00:15 Dextrose 12.5 gm PRN Q15MIN PRN IV SEE COMMENTS; Start 08/04/18 at 00:15 Glucose (Insta-Glucose) 15 gm PRN Q15MIN PRN PO LOW BLOOD SUGAR; Start at 00:15 Insulin Human Lispro (HumaLOG) 10 units TIDAC SQ Last administered on at 12:22; Start 08/04/18 at 07:30; Stop 08/04/18 at 17:33; Status DC Buspirone HCl (Buspar) 10 mg PRN DAILY PRN PO ANXIETY / AGITATION; Start at 09:00 Tramadol HCl (Ultram) 50 mg PRN BID PRN PO PAIN Last administered on 08/06/18 21:03; Start 08/04/18 at 01:15 Lactobacillus Rhamnosus (Culturelle) 1 cap BID PO Last administered on 20:06; Start 08/04/18 at 09:00 Nystatin (Mycostatin) 1 raquel BID TP Last administered on 08/07/18 08:49; Start 08/04/18 at 09:00 Cefpodoxime Proxetil (Vantin) 200 mg BID PO ; Start 08/04/18 at 09:00; Stop at 09:00; Status DC Doxycycline Hyclate (Vibra-Tab) 100 mg [id number] PO Last administered on 08/07/18 16:26; Start 08/04/18 at 06:00 Cefdinir (Omnicef) 300 mg BID PO Last administered on 08/07/18 20:06; Start at 09:00 Divalproex Sodium (Depakote) 500 mg BID PO Last administered on 08/07/18 20:06 ; Start 08/04/18 at 21:00 Lidocaine (Xylocaine) 1 raquel PRN DAILY PRN TP PAIN; Start 08/04/18 at 14:15 Insulin Glargine (Lantus) 40 units QHS SQ Last administered on 08/07/18 20:08 ; Start 08/04/18 at 21:00 Insulin Human Lispro (HumaLOG) 15 units TIDAC SQ Last administered on 13:45; Start 08/05/18 at 07:30 Insulin Human Lispro (HumaLOG) 15 units 1X ONCE SQ Last administered on 09:39; Start 08/05/18 at 07:30; Stop 08/05/18 at 09:28; Status DC Duloxetine HCl (Cymbalta) 60 mg DAILY PO Last administered on 08/07/18at 08:50; Start 08/06/18 at 09:00 Active Scripts Active Reported Cozaar (Losartan Potassium) 25 Mg Tablet 25 Mg PO DAILY Tramadol Hcl (Tramadol HCl) 50 Mg Tablet 50 Mg PO HS PRN Hydralazine Hcl 50 Mg Tablet 50 Mg PO TID Zyprexa (Olanzapine) 2.5 Mg Tablet 2.5 Mg PO PRN Q2HR PRN Metoprolol Succinate ( Xl ) (Metoprolol Succinate) 100 Mg Tab.er.24h 100 Mg PO DAILY Analgesic [place] (Methyl Salicylate/Menthol) 28 Gm Oint...g. 1 Raquel TP PRN QID PRN Mag-Al Plus Xs Suspension (Mag Hydrox/Al Hydrox/Simeth) 30 Ml Oral.susp 15 Ml PO PRN AFTMEALHC PRN Humalog (Insulin Lispro) 100 Unit/1 Ml Cartridge 10 Unit SQ TIDAC Lantus Solostar (Insulin Glargine,Hum.rec.anlog) 100 Unit/1 Ml Insuln.pen 30 Unit SQ QHS Duloxetine Hcl 30 Mg Capsule.dr 30 Mg PO DAILY Depakote (Divalproex Sodium) 500 Mg Tablet.dr 500 Mg PO BID Seroquel (Quetiapine Fumarate) 25 Mg Tablet 25 Mg PO HS Triamcinolone Acetonide 15 Gm Cream..g. 1 Raquel TP PRN DAILY PRN Ondansetron Odt (Ondansetron) 4 Mg Tab.rapdis 4 Mg PO PRN Q6HRS PRN Furosemide 40 Mg Tablet 60 Mg PO BIDACBL Acetaminophen 325 Mg Tablet 650 Mg PO PRN Q6HRS PRN Tramadol Hcl (Tramadol HCl) 50 Mg Tablet 50 Mg PO PRN DAILY PRN [Lidocaine Oint 5%] 1 Raquel TP PRN DAILY Apply to heel prior to wound debridement. One Daily Plus Minerals (Multivitamin With Minerals) 1 Each Tablet 1 Tab PO DAILY Docusate Sodium 100 Mg Capsule 200 Mg PO DAILY Humalog (Insulin Lispro) 100 Unit/1 Ml Cartridge 0-7 Unit SQ TIDAC For BG <70 units, notify provider IF EATING IF NOT EATING B-150 0 units 0 units B-200 3 units 0 units B-250 4 units 2 units B-300 6 units 3 units B-350 7 units 4 units BG <60 or >351 notify provider Trazodone Hcl 150 Mg Tablet 1 Tab PO QHS Medroxyprogesterone Acetate 10 Mg Tablet 15 Mg PO DAILY Buspirone Hcl 10 Mg Tablet 1 Tab PO DAILY Klor-Con M20 (Potassium Chloride) 20 Meq Tab.er.prt 1 Tab PO BIDWMEALS Melatonin 3 Mg Tablet 1 Tab PO QHS Milk Of Magnesia (Magnesium Hydroxide) 2,400 Mg/10 Ml Oral.susp 2,400 Mg PO PRN DAILY PRN Thiamine Hcl 100 Mg Tablet 100 Mg PO DAILY Folic Acid 1 Mg Tablet 1 Tab PO DAILY Gabapentin (Gabapentin) 100 Mg Capsule 100 Mg PO TIDWMEALS I have reviewed the current psychotropics carefully including drug interactions. Risk benefit ratio favors no change other than as noted in my dictated progress note. Diagnosis: Problems: (1) Anxiety disorder (2) Impulse control disorder (3) Bipolar affective disorder, mixed (4) Dementia, vascular, with delusions (5) Dementia with behavioral disturbance LIZ DIANE MD Aug 07, 2018 22:41
[2018-08-08] MEDS: DOXYCYCLINE HYCLATE 100 MG TABLET PO SCH ×2 (05:42→17:39)
[2018-08-08 06:36] VITALS: BP 145/82
[2018-08-08] MEDS: medroxyPROGESTERone 5 MG TABLET PO SCH (09:24)
[2018-08-08] MEDS: CEFDINIR 300 MG CAPSULE PO SCH ×2 (09:24→19:45)
[2018-08-08] MEDS: POTASSIUM CHLORIDE 20 MEQ TABLET.ER. PO SCH ×2 (09:24→17:39)
[2018-08-08] MEDS: THIAMINE 100 MG TABLET. PO SCH (09:25)
[2018-08-08] MEDS: METOPROLOL SUCC 24HR ER 50 MG TAB.ER.24H. PO SCH (09:25)
[2018-08-08] MEDS: DIVALPROEX SODIUM 250 MG TABLET.DR. PO SCH ×2 (09:26→19:46)
[2018-08-08] MEDS: LOSARTAN 25 MG TABLET. PO SCH (09:26)
[2018-08-08] MEDS: LACTOBACILLUS RHAMNOSUS GG 1 CAPSULE. PO SCH ×2 (09:26→19:45)
[2018-08-08] MEDS: FUROSEMIDE 40 MG TABLET PO SCH ×2 (09:26→12:47)
[2018-08-08] MEDS: MULTIVITAMIN with MINERAL TABLET. PO SCH (09:26)
[2018-08-08] MEDS: FOLIC ACID 1 MG TABLET PO SCH (09:26)
[2018-08-08] MEDS: DULoxetine HCL 60 MG CAPSULE.DR PO SCH (09:26)
[2018-08-08] MEDS: DOCUSATE SODIUM 100 MG CAPSULE PO SCH (09:26)
[2018-08-08] MEDS: INSULIN LISPRO 300 UNITS/3 ML INSULN.PEN. SQ SCH ×3 (09:36→16:30)
[2018-08-08] MEDS: GABAPENTIN 100 MG CAPSULE. PO SCH ×3 (09:39→17:39)
[2018-08-08] MEDS: NYSTATIN 100,000 UNIT/GM TOPICAL CREAM 15GM TUBE. TP SCH ×2 (09:39→19:48)
[2018-08-08 15:52] VITALS: BP 141/78
[2018-08-08] MEDS: MELATONIN 3 MG TABLET PO SCH (19:45)
[2018-08-08] MEDS: QUEtiapine 25 MG TABLET. PO SCH (19:45)
[2018-08-08] MEDS: INSULIN GLARGINE 300 UNITS/3 ML INSULN.PEN. SQ SCH (19:49)
[2018-08-08] MEDS: MAGNESIUM HYDROXIDE 2,400 MG/30 ML ORAL.SUSP. PO PRN (22:17)
--- NOTE | 2018-08-08 22:47 | PDOC ---
Exam Note: Adriano Note: Please also refer to the separate dictated note~for this date of service dictated separately.~Patient seen individually. Discussed the patient with Nursing staff reviewed the chart.~Reviewed interim history and current functioning. Reviewed vital signs,~Labs/ Radiology~and current medications noted below. Continue current treatment with the changes noted in the dictated addendum note Assessment: Vital Signs: Vital Signs Date Time Temp Pulse Resp B/P (MAP) Pulse Ox O2 Delivery O2 Flow Rate FiO2 08/08/18 19:45 74 141/78 08/08/18 15:52 98.1 14 98 08/06/18 22:03 Room Air I&O Intake and Output 08/08/18 07:00 Intake Total 1320 ml Balance 1320 ml Intake Oral 1320 ml Labs: Laboratory Tests Test 08/08/18 07:19 08/08/18 12:12 08/08/18 17:31 08/08/18 19:36 Glucose (Fingerstick) 104 mg/dL (70-99) H 205 mg/dL (70-99) H 182 mg/dL (70-99) H 226 mg/dL (70-99) H Current Medications: Meds: Current Medications Acetaminophen (Tylenol) 650 mg PRN Q6HRS PRN PO PAIN / TEMP Last administered on 08/03/18at 22:20; Start 08/03/18 at 21:45 Gabapentin (Neurontin) 100 mg TIDWMEALS PO Last administered on 08/08/18at 17:39 ; Start 08/04/18 at 08:00 Insulin Glargine (Lantus) 30 units QHS SQ ; Start 08/04/18 at 21:00; Stop at 21:00; Status DC Losartan Potassium (Cozaar) 25 mg DAILY PO Last administered on 08/08/18at 09:26 ; Start 08/04/18 at 09:00 Al Hydroxide/Mg Hydroxide (Mylanta Plus Xs) 15 ml PRN AFTMEALHC PRN PO DYSPEPSIA; Start 08/03/18 at 21:45 Multi-Ingredient Ointment (Analgesic [place]) 1 raquel PRN QID PRN TP MUSCLE PAIN; Start 08/03/18 at 21:45 Potassium Chloride (Klor-Con) 20 meq BIDWMEALS PO Last administered on at 17:39; Start 08/04/18 at 08:00 Tramadol HCl (Ultram) 50 mg PRN QHS PRN PO PAIN Last administered on 08/03/18 22:20; Start 08/03/18 at 22:15; Stop 08/04/18 at 01:08; Status DC Tramadol HCl (Ultram) 50 mg PRN DAILY PRN PO PAIN; Start 08/03/18 at 21:45; Stop 08/04/18 at 01:08; Status DC Buspirone HCl (Buspar) 10 mg DAILY PO ; Start 08/04/18 at 09:00; Stop 08/04/18 at 09:00; Status DC Divalproex Sodium (Depakote Er) 500 mg BID PO Last administered on 08/04/18 08 :27; Start 08/04/18 at 09:00; Stop 08/04/18 at 13:30; Status DC Docusate Sodium (Colace) 200 mg DAILY PO Last administered on 08/08/18 09:26; Start 08/04/18 at 09:00 Duloxetine HCl (Cymbalta) 30 mg DAILY PO Last administered on 08/05/18 08:33; Start 08/04/18 at 09:00; Stop 08/05/18 at 11:09; Status DC Folic Acid (Folic Acid) 1 mg DAILY PO Last administered on 08/08/18 09:26; Start 08/04/18 at 09:00 Furosemide (Lasix) 40 mg BIDACBL PO Last administered on 08/08/18 12:47; Start 08/04/18 at 07:30 Hydralazine HCl (Apresoline) 50 mg TID PO Last administered on 08/08/18 19:45 ; Start 08/04/18 at 09:00 Insulin Human Lispro (HumaLOG) TID ac TIDAC SQ ; Start 08/04/18 at 07:30; Stop 08/04/18 at 07:30; Status DC Insulin Human Lispro (HumaLOG) 10 units TIDAC SQ ; Start 08/04/18 at 07:30; Stop 08/04/18 at 07:30; Status DC Magnesium Hydroxide (Milk Of Magnesia) 2,400 mg PRN DAILY PRN PO CONSTIPATION Last administered on 08/08/18 22:17; Start 08/03/18 at 22:00 Medroxyprogesterone Acetate (Provera) 15 mg DAILY PO Last administered on 09:24; Start 08/04/18 at 09:00 Melatonin 3 mg QHS PO Last administered on 08/08/18 19:45; Start 08/04/18 at 21:00 Metoprolol Succinate (Toprol Xl) 100 mg DAILY PO Last administered on 09:25; Start 08/04/18 at 09:00 Multivitamins/ Calcium (Thera-M Plus) 1 tab DAILY PO Last administered on 09:26; Start 08/04/18 at 09:00 Olanzapine (ZyPREXA) 2.5 mg PRN Q2HR PRN PO AGITATION Last administered on 08/07 18:45; Start 08/03/18 at 22:00 Ondansetron HCl (Zofran Odt) 4 mg PRN Q6HRS PRN PO NAUSEA/VOMITING; Start 08/03 at 22:00 Quetiapine Fumarate (SEROquel) 25 mg QHS PO Last administered on 08/08/18 19: 45; Start 08/04/18 at 21:00 Thiamine HCl (Vitamin B-1) 100 mg DAILY PO Last administered on 08/08/18 09:25 ; Start 08/04/18 at 09:00 Trazodone HCl (Desyrel) 150 mg PRN QHS PRN PO INSOMNIA Last administered on 02:27; Start 08/03/18 at 22:15 Triamcinolone Acetonide (Kenalog) 1 raquel PRN DAILY PRN TP RASH; Start 08/03/18 at 22:15 Lidocaine (Xylocaine) 1 raquel PRN DAILY PRN TP PAIN; Start 08/03/18 at 22:15; Stop 08/04/18 at 14:03; Status DC Insulin Glargine (Lantus) 30 units QHS SQ ; Start 08/04/18 at 21:00; Stop at 21:00; Status DC Insulin Human Lispro (HumaLOG) 0-7 UNITS TIDWMEALS PRN SQ ELEVATED BS; Start at 00:15 Dextrose 12.5 gm PRN Q15MIN PRN IV SEE COMMENTS; Start 08/04/18 at 00:15 Glucose (Insta-Glucose) 15 gm PRN Q15MIN PRN PO LOW BLOOD SUGAR; Start at 00:15 Insulin Human Lispro (HumaLOG) 10 units TIDAC SQ Last administered on at 12:22; Start 08/04/18 at 07:30; Stop 08/04/18 at 17:33; Status DC Buspirone HCl (Buspar) 10 mg PRN DAILY PRN PO ANXIETY / AGITATION; Start at 09:00 Tramadol HCl (Ultram) 50 mg PRN BID PRN PO PAIN Last administered on 08/06/18 21:03; Start 08/04/18 at 01:15 Lactobacillus Rhamnosus (Culturelle) 1 cap BID PO Last administered on at 19:45; Start 08/04/18 at 09:00 Nystatin (Mycostatin) 1 raquel BID TP Last administered on 08/08/18 19:48; Start 08/04/18 at 09:00 Cefpodoxime Proxetil (Vantin) 200 mg BID PO ; Start 08/04/18 at 09:00; Stop at 09:00; Status DC Doxycycline Hyclate (Vibra-Tab) 100 mg BID66 PO Last administered on 08/08/18 17:39; Start 08/04/18 at 06:00 Cefdinir (Omnicef) 300 mg BID PO Last administered on 08/08/18 19:45; Start at 09:00 Divalproex Sodium (Depakote) 500 mg BID PO Last administered on 08/08/18 19:46 ; Start 08/04/18 at 21:00 Lidocaine (Xylocaine) 1 raquel PRN DAILY PRN TP PAIN; Start 08/04/18 at 14:15 Insulin Glargine (Lantus) 40 units QHS SQ Last administered on 08/08/18 19:49 ; Start 08/04/18 at 21:00 Insulin Human Lispro (HumaLOG) 15 units TIDAC SQ Last administered on at 12:31; Start 08/05/18 at 07:30 Insulin Human Lispro (HumaLOG) 15 units 1X ONCE SQ Last administered on at 09:39; Start 08/05/18 at 07:30; Stop 08/05/18 at 09:28; Status DC Duloxetine HCl (Cymbalta) 60 mg DAILY PO Last administered on 08/08/18at 09:26; Start 08/06/18 at 09:00 Active Scripts Active Reported Cozaar (Losartan Potassium) 25 Mg Tablet 25 Mg PO DAILY Tramadol Hcl (Tramadol HCl) 50 Mg Tablet 50 Mg PO HS PRN Hydralazine Hcl 50 Mg Tablet 50 Mg PO TID Zyprexa (Olanzapine) 2.5 Mg Tablet 2.5 Mg PO PRN Q2HR PRN Metoprolol Succinate ( Xl ) (Metoprolol Succinate) 100 Mg Tab.er.24h 100 Mg PO DAILY Analgesic [place] (Methyl Salicylate/Menthol) 28 Gm Oint...g. 1 Raquel TP PRN QID PRN Mag-Al Plus Xs Suspension (Mag Hydrox/Al Hydrox/Simeth) 30 Ml Oral.susp 15 Ml PO PRN AFTMEALHC PRN Humalog (Insulin Lispro) 100 Unit/1 Ml Cartridge 10 Unit SQ TIDAC Lantus Solostar (Insulin Glargine,Hum.rec.anlog) 100 Unit/1 Ml Insuln.pen 30 Unit SQ QHS Duloxetine Hcl 30 Mg Capsule.dr 30 Mg PO DAILY Depakote (Divalproex Sodium) 500 Mg Tablet.dr 500 Mg PO BID Seroquel (Quetiapine Fumarate) 25 Mg Tablet 25 Mg PO HS Triamcinolone Acetonide 15 Gm Cream..g. 1 Raquel TP PRN DAILY PRN Ondansetron Odt (Ondansetron) 4 Mg Tab.rapdis 4 Mg PO PRN Q6HRS PRN Furosemide 40 Mg Tablet 60 Mg PO BIDACBL Acetaminophen 325 Mg Tablet 650 Mg PO PRN Q6HRS PRN Tramadol Hcl (Tramadol HCl) 50 Mg Tablet 50 Mg PO PRN DAILY PRN [Lidocaine Oint 5%] 1 Raquel TP PRN DAILY Apply to heel prior to wound debridement. One Daily Plus Minerals (Multivitamin With Minerals) 1 Each Tablet 1 Tab PO DAILY Docusate Sodium 100 Mg Capsule 200 Mg PO DAILY Humalog (Insulin Lispro) 100 Unit/1 Ml Cartridge 0-7 Unit SQ TIDAC For BG <70 units, notify provider IF EATING IF NOT EATING B-150 0 units 0 units B-200 3 units 0 units B-250 4 units 2 units B-300 6 units 3 units B-350 7 units 4 units BG <60 or >351 notify provider Trazodone Hcl 150 Mg Tablet 1 Tab PO QHS Medroxyprogesterone Acetate 10 Mg Tablet 15 Mg PO DAILY Buspirone Hcl 10 Mg Tablet 1 Tab PO DAILY Klor-Con M20 (Potassium Chloride) 20 Meq Tab.er.prt 1 Tab PO BIDWMEALS Melatonin 3 Mg Tablet 1 Tab PO QHS Milk Of Magnesia (Magnesium Hydroxide) 2,400 Mg/10 Ml Oral.susp 2,400 Mg PO PRN DAILY PRN Thiamine Hcl 100 Mg Tablet 100 Mg PO DAILY Folic Acid 1 Mg Tablet 1 Tab PO DAILY Gabapentin (Gabapentin) 100 Mg Capsule 100 Mg PO TIDWMEALS I have reviewed the current psychotropics carefully including drug interactions. Risk benefit ratio favors no change other than as noted in my dictated progress note. Diagnosis: Problems: (1) Anxiety disorder (2) Impulse control disorder (3) Bipolar affective disorder, mixed (4) Dementia, vascular, with delusions (5) Dementia with behavioral disturbance LIZ DIANE MD Aug 08, 2018 22:47
[2018-08-09] MEDS: DOXYCYCLINE HYCLATE 100 MG TABLET PO SCH ×2 (06:22→17:06)
[2018-08-09 06:39] VITALS: BP 137/85
[2018-08-09] MEDS: INSULIN LISPRO 300 UNITS/3 ML INSULN.PEN. SQ SCH ×3 (07:30→16:30)
[2018-08-09] MEDS: DOCUSATE SODIUM 100 MG CAPSULE PO SCH (08:39)
[2018-08-09] MEDS: NYSTATIN 100,000 UNIT/GM TOPICAL CREAM 15GM TUBE. TP SCH ×2 (08:39→20:04)
[2018-08-09] MEDS: FUROSEMIDE 40 MG TABLET PO SCH ×3 (08:40→12:16)
[2018-08-09] MEDS: LACTOBACILLUS RHAMNOSUS GG 1 CAPSULE. PO SCH ×2 (08:40→20:03)
[2018-08-09] MEDS: THIAMINE 100 MG TABLET. PO SCH (08:40)
[2018-08-09] MEDS: FOLIC ACID 1 MG TABLET PO SCH (08:40)
[2018-08-09] MEDS: DULoxetine HCL 60 MG CAPSULE.DR PO SCH (08:40)
[2018-08-09] MEDS: CEFDINIR 300 MG CAPSULE PO SCH ×2 (08:40→20:03)
[2018-08-09] MEDS: medroxyPROGESTERone 5 MG TABLET PO SCH (08:40)
[2018-08-09] MEDS: DIVALPROEX SODIUM 250 MG TABLET.DR. PO SCH ×2 (08:40→20:04)
[2018-08-09] MEDS: POTASSIUM CHLORIDE 20 MEQ TABLET.ER. PO SCH ×2 (08:41→17:06)
[2018-08-09] MEDS: MULTIVITAMIN with MINERAL TABLET. PO SCH (08:41)
[2018-08-09] MEDS: LOSARTAN 25 MG TABLET. PO SCH (08:42)
[2018-08-09] MEDS: METOPROLOL SUCC 24HR ER 50 MG TAB.ER.24H. PO SCH (08:42)
[2018-08-09] MEDS: GABAPENTIN 100 MG CAPSULE. PO SCH ×4 (08:43→17:06)
[2018-08-09] MEDS: HALOPERIDOL LACT 5 MG/ML VIAL. IM SCH (14:58)
[2018-08-09 20:02] VITALS: BP 167/94
[2018-08-09] MEDS: MELATONIN 3 MG TABLET PO SCH (20:03)
[2018-08-09] MEDS: QUEtiapine 25 MG TABLET. PO SCH (20:04)
[2018-08-09] MEDS: INSULIN GLARGINE 300 UNITS/3 ML INSULN.PEN. SQ SCH (20:19)
--- NOTE | 2018-08-09 20:42 | PN ---
DATE: 08/06/2018 PSYCHIATRIC PROGRESS NOTE This late entry 08/06/2018 covers elements not covered in my initial note. SUBJECTIVE: I met with the patient in the evening. The patient slept just 2-1/2 hours previous night, received Zyprexa at 2:27 a.m. because of agitation, then was in the quiet area, door was open, wandering, redirectable, slept in brainer to compensate for his insomnia. We will check a valproic acid level. REVIEW OF SYSTEMS: No CV, , pulmonary, eye, ENT system symptoms on review. MENTAL STATUS EXAM: Oriented to himself and situation. Speech has some latency, coherent. Abstraction fair, computation impaired, language function intact, attention span short. Mood and affect somewhat withdrawn, labile at times. LABORATORY DATA: Reviewed. IMPRESSION: Unchanged from initial note. PLAN: No change from initial note. MAN Newton DIANE MD DR: MATILDA/james JOB#: [id number] / [id number]
--- NOTE | 2018-08-09 22:20 | PN ---
DATE: 08/07/2018 PSYCHIATRIC PROGRESS NOTE This late entry 08/07/2018 covers elements not covered in my initial note. SUBJECTIVE: I met with the patient in the evening. The patient slept 7 hours previous night. He remains confused, anxious. Additionally wetting his pants purposely per nursing report, combative, cursing at staff. It took 4 staff members to give his insulin. REVIEW OF SYSTEMS: Ambulation impaired. No CV, , pulmonary, eye, ENT system symptoms on review. MENTAL STATUS EXAM: Oriented to himself and situation. Speech moderate latency, often responses monosyllabic, coherent. Abstraction fair, computation impaired, language function intact. Mood and affect withdrawn. No suicidal or homicidal ideation. LABORATORY DATA: Reviewed. IMPRESSION: Unchanged from initial note. PLAN: No change from initial note. MAN Netwon DIANE MD DR: MATILDA/james JOB#: [id number] / [id number]
--- NOTE | 2018-08-09 22:23 | PN ---
DATE: 08/08/2018 PSYCHIATRIC PROGRESS NOTE This late entry 08/08/2018 covers elements not covered in my initial note. SUBJECTIVE: I met with the patient in the evening. The patient slept 7 hours previous night. He refused his bedtime medications, combative with fingersticks and showers during the day 08/08/2018. He was somewhat withdrawn. He gets agitated and when I discussed the fact that he may not be able to go to the longterm in [place] if this persists. He is able to correct it at least briefly. REVIEW OF SYSTEMS: Ambulation impaired. No CV, , pulmonary, eye system symptoms on review. MENTAL STATUS EXAM: Oriented to himself, situation. Insight, judgment, recent memory is impaired. Language function is intact. Attention span short. Mood and affect somewhat labile, anxious. LABORATORY DATA: Reviewed. IMPRESSION: Unchanged from initial note. PLAN: No change from initial note. MAN Newton DIANE MD DR: MATILDA/james JOB#: [id number] / [id number]
--- NOTE | 2018-08-09 22:58 | PDOC ---
Exam Note: Adriano Note: Please also refer to the separate dictated note~for this date of service dictated separately.~Patient seen individually. Discussed the patient with Nursing staff reviewed the chart.~Reviewed interim history and current functioning. Reviewed vital signs,~Labs/ Radiology~and current medications noted below. Continue current treatment with the changes noted in the dictated addendum note Assessment: Vital Signs: Vital Signs Date Time Temp Pulse Resp B/P (MAP) Pulse Ox O2 Delivery O2 Flow Rate FiO2 08/09/18 20:03 61 167/94 08/09/18 06:39 98.3 18 95 08/06/18 22:03 Room Air I&O Intake and Output 08/09/18 06:59 Intake Total 1080 ml Balance 1080 ml Intake Oral 1080 ml # Bowel Movements 1 Labs: Laboratory Tests Test 08/09/18 07:38 08/09/18 11:50 08/09/18 17:05 08/09/18 19:31 Glucose (Fingerstick) 85 mg/dL (70-99) 157 mg/dL (70-99) H 205 mg/dL (70-99) H 163 mg/dL (70-99) H Current Medications: Meds: Current Medications Acetaminophen (Tylenol) 650 mg PRN Q6HRS PRN PO PAIN / TEMP Last administered on 08/03/18at 22:20; Start 08/03/18 at 21:45 Gabapentin (Neurontin) 100 mg TIDWMEALS PO Last administered on 08/09/18at 17:06 ; Start 08/04/18 at 08:00 Insulin Glargine (Lantus) 30 units QHS SQ ; Start 08/04/18 at 21:00; Stop at 21:00; Status DC Losartan Potassium (Cozaar) 25 mg DAILY PO Last administered on 08/09/18at 08:42 ; Start 08/04/18 at 09:00 Al Hydroxide/Mg Hydroxide (Mylanta Plus Xs) 15 ml PRN AFTMEALHC PRN PO DYSPEPSIA; Start 08/03/18 at 21:45 Multi-Ingredient Ointment (Analgesic [place]) 1 raquel PRN QID PRN TP MUSCLE PAIN; Start 08/03/18 at 21:45 Potassium Chloride (Klor-Con) 20 meq BIDWMEALS PO Last administered on at 17:06; Start 08/04/18 at 08:00 Tramadol HCl (Ultram) 50 mg PRN QHS PRN PO PAIN Last administered on 08/03/18at 22:20; Start 08/03/18 at 22:15; Stop 08/04/18 at 01:08; Status DC Tramadol HCl (Ultram) 50 mg PRN DAILY PRN PO PAIN; Start 08/03/18 at 21:45; Stop 08/04/18 at 01:08; Status DC Buspirone HCl (Buspar) 10 mg DAILY PO ; Start 08/04/18 at 09:00; Stop 08/04/18 at 09:00; Status DC Divalproex Sodium (Depakote Er) 500 mg BID PO Last administered on 08/04/18 08 :27; Start 08/04/18 at 09:00; Stop 08/04/18 at 13:30; Status DC Docusate Sodium (Colace) 200 mg DAILY PO Last administered on 08/09/18 08:39; Start 08/04/18 at 09:00 Duloxetine HCl (Cymbalta) 30 mg DAILY PO Last administered on 08/05/18at 08:33; Start 08/04/18 at 09:00; Stop 08/05/18 at 11:09; Status DC Folic Acid (Folic Acid) 1 mg DAILY PO Last administered on 08/09/18 08:40; Start 08/04/18 at 09:00 Furosemide (Lasix) 40 mg BIDACBL PO Last administered on 08/09/18 08:40; Start 08/04/18 at 07:30 Hydralazine HCl (Apresoline) 50 mg TID PO Last administered on 08/09/18at 20:03; Start 08/04/18 at 09:00 Insulin Human Lispro (HumaLOG) TID ac TIDAC SQ ; Start 08/04/18 at 07:30; Stop 08/04/18 at 07:30; Status DC Insulin Human Lispro (HumaLOG) 10 units TIDAC SQ ; Start 08/04/18 at 07:30; Stop 08/04/18 at 07:30; Status DC Magnesium Hydroxide (Milk Of Magnesia) 2,400 mg PRN DAILY PRN PO CONSTIPATION Last administered on 08/08/18at 22:17; Start 08/03/18 at 22:00 Medroxyprogesterone Acetate (Provera) 15 mg DAILY PO Last administered on 08:40; Start 08/04/18 at 09:00 Melatonin 3 mg QHS PO Last administered on 08/09/18 20:03; Start 08/04/18 at 21 :00 Metoprolol Succinate (Toprol Xl) 100 mg DAILY PO Last administered on 08/09/18 08:42; Start 08/04/18 at 09:00 Multivitamins/ Calcium (Thera-M Plus) 1 tab DAILY PO Last administered on 08:41; Start 08/04/18 at 09:00 Olanzapine (ZyPREXA) 2.5 mg PRN Q2HR PRN PO AGITATION Last administered on 08/07 18:45; Start 08/03/18 at 22:00 Ondansetron HCl (Zofran Odt) 4 mg PRN Q6HRS PRN PO NAUSEA/VOMITING; Start 08/03 at 22:00 Quetiapine Fumarate (SEROquel) 25 mg QHS PO Last administered on 08/09/18 20:04 ; Start 08/04/18 at 21:00 Thiamine HCl (Vitamin B-1) 100 mg DAILY PO Last administered on 08/09/18 08:40 ; Start 08/04/18 at 09:00 Trazodone HCl (Desyrel) 150 mg PRN QHS PRN PO INSOMNIA Last administered on 02:27; Start 08/03/18 at 22:15 Triamcinolone Acetonide (Kenalog) 1 raquel PRN DAILY PRN TP RASH; Start 08/03/18 at 22:15 Lidocaine (Xylocaine) 1 raquel PRN DAILY PRN TP PAIN; Start 08/03/18 at 22:15; Stop 08/04/18 at 14:03; Status DC Insulin Glargine (Lantus) 30 units QHS SQ ; Start 08/04/18 at 21:00; Stop at 21:00; Status DC Insulin Human Lispro (HumaLOG) 0-7 UNITS TIDWMEALS PRN SQ ELEVATED BS; Start at 00:15 Dextrose 12.5 gm PRN Q15MIN PRN IV SEE COMMENTS; Start 08/04/18 at 00:15 Glucose (Insta-Glucose) 15 gm PRN Q15MIN PRN PO LOW BLOOD SUGAR; Start at 00:15 Insulin Human Lispro (HumaLOG) 10 units TIDAC SQ Last administered on at 12:22; Start 08/04/18 at 07:30; Stop 08/04/18 at 17:33; Status DC Buspirone HCl (Buspar) 10 mg PRN DAILY PRN PO ANXIETY / AGITATION; Start at 09:00 Tramadol HCl (Ultram) 50 mg PRN BID PRN PO PAIN Last administered on 08/06/18at 21:03; Start 08/04/18 at 01:15 Lactobacillus Rhamnosus (Culturelle) 1 cap BID PO Last administered on at 20:03; Start 08/04/18 at 09:00 Nystatin (Mycostatin) 1 raquel BID TP Last administered on 08/09/18at 08:39; Start 08/04/18 at 09:00 Cefpodoxime Proxetil (Vantin) 200 mg BID PO ; Start 08/04/18 at 09:00; Stop at 09:00; Status DC Doxycycline Hyclate (Vibra-Tab) 100 mg [id number] PO Last administered on 08/09/18at 17:06; Start 08/04/18 at 06:00 Cefdinir (Omnicef) 300 mg BID PO Last administered on 08/09/18at 20:03; Start at 09:00 Divalproex Sodium (Depakote) 500 mg BID PO Last administered on 08/09/18at 20:04 ; Start 08/04/18 at 21:00 Lidocaine (Xylocaine) 1 raquel PRN DAILY PRN TP PAIN; Start 08/04/18 at 14:15 Insulin Glargine (Lantus) 40 units QHS SQ Last administered on 08/09/18at 20:19; Start 08/04/18 at 21:00 Insulin Human Lispro (HumaLOG) 15 units TIDAC SQ Last administered on at 12:31; Start 08/05/18 at 07:30 Insulin Human Lispro (HumaLOG) 15 units 1X ONCE SQ Last administered on at 09:39; Start 08/05/18 at 07:30; Stop 08/05/18 at 09:28; Status DC Duloxetine HCl (Cymbalta) 60 mg DAILY PO Last administered on 08/09/18at 08:40; Start 08/06/18 at 09:00 Haloperidol Lactate (Haldol) 5 mg DAILY IM Last administered on 08/09/18at 14:58 ; Start 08/09/18 at 15:00 Lorazepam (Ativan) 2 mg DAILY IM ; Start 08/09/18 at 15:00; Stop 08/09/18 at 15:00 ; Status DC Lorazepam (Ativan) 1 mg DAILY IM Last administered on 08/09/18at 14:57; Start 08/09/18 at 15:00 Active Scripts Active Reported Cozaar (Losartan Potassium) 25 Mg Tablet 25 Mg PO DAILY Tramadol Hcl (Tramadol HCl) 50 Mg Tablet 50 Mg PO HS PRN Hydralazine Hcl 50 Mg Tablet 50 Mg PO TID Zyprexa (Olanzapine) 2.5 Mg Tablet 2.5 Mg PO PRN Q2HR PRN Metoprolol Succinate ( Xl ) (Metoprolol Succinate) 100 Mg Tab.er.24h 100 Mg PO DAILY Analgesic [place] (Methyl Salicylate/Menthol) 28 Gm Oint...g. 1 Raquel TP PRN QID PRN Mag-Al Plus Xs Suspension (Mag Hydrox/Al Hydrox/Simeth) 30 Ml Oral.susp 15 Ml PO PRN AFTMEALHC PRN Humalog (Insulin Lispro) 100 Unit/1 Ml Cartridge 10 Unit SQ TIDAC Lantus Solostar (Insulin Glargine,Hum.rec.anlog) 100 Unit/1 Ml Insuln.pen 30 Unit SQ QHS Duloxetine Hcl 30 Mg Capsule.dr 30 Mg PO DAILY Depakote (Divalproex Sodium) 500 Mg Tablet.dr 500 Mg PO BID Seroquel (Quetiapine Fumarate) 25 Mg Tablet 25 Mg PO HS Triamcinolone Acetonide 15 Gm Cream..g. 1 Raquel TP PRN DAILY PRN Ondansetron Odt (Ondansetron) 4 Mg Tab.rapdis 4 Mg PO PRN Q6HRS PRN Furosemide 40 Mg Tablet 60 Mg PO BIDACBL Acetaminophen 325 Mg Tablet 650 Mg PO PRN Q6HRS PRN Tramadol Hcl (Tramadol HCl) 50 Mg Tablet 50 Mg PO PRN DAILY PRN [Lidocaine Oint 5%] 1 Raquel TP PRN DAILY Apply to heel prior to wound debridement. One Daily Plus Minerals (Multivitamin With Minerals) 1 Each Tablet 1 Tab PO DAILY Docusate Sodium 100 Mg Capsule 200 Mg PO DAILY Humalog (Insulin Lispro) 100 Unit/1 Ml Cartridge 0-7 Unit SQ TIDAC For BG <70 units, notify provider IF EATING IF NOT EATING B-150 0 units 0 units B-200 3 units 0 units B-250 4 units 2 units B-300 6 units 3 units B-350 7 units 4 units BG <60 or >351 notify provider Trazodone Hcl 150 Mg Tablet 1 Tab PO QHS Medroxyprogesterone Acetate 10 Mg Tablet 15 Mg PO DAILY Buspirone Hcl 10 Mg Tablet 1 Tab PO DAILY Klor-Con M20 (Potassium Chloride) 20 Meq Tab.er.prt 1 Tab PO BIDWMEALS Melatonin 3 Mg Tablet 1 Tab PO QHS Milk Of Magnesia (Magnesium Hydroxide) 2,400 Mg/10 Ml Oral.susp 2,400 Mg PO PRN DAILY PRN Thiamine Hcl 100 Mg Tablet 100 Mg PO DAILY Folic Acid 1 Mg Tablet 1 Tab PO DAILY Gabapentin (Gabapentin) 100 Mg Capsule 100 Mg PO TIDWMEALS I have reviewed the current psychotropics carefully including drug interactions. Risk benefit ratio favors no change other than as noted in my dictated progress note. Diagnosis: Problems: (1) Anxiety disorder (2) Impulse control disorder (3) Bipolar affective disorder, mixed (4) Dementia, vascular, with delusions (5) Dementia with behavioral disturbance LIZ DIANE MD Aug 09, 2018 22:58
[2018-08-10] MEDS: DOXYCYCLINE HYCLATE 100 MG TABLET PO SCH ×2 (05:43→17:17)
[2018-08-10 06:09] VITALS: BP 162/65
[2018-08-10] MEDS: HALOPERIDOL LACT 5 MG/ML VIAL. IM SCH (09:00)
[2018-08-10] MEDS: medroxyPROGESTERone 5 MG TABLET PO SCH (09:11)
[2018-08-10] MEDS: CEFDINIR 300 MG CAPSULE PO SCH ×2 (09:12→19:49)
[2018-08-10] MEDS: LACTOBACILLUS RHAMNOSUS GG 1 CAPSULE. PO SCH ×2 (09:12→19:49)
[2018-08-10] MEDS: FOLIC ACID 1 MG TABLET PO SCH (09:12)
[2018-08-10] MEDS: POTASSIUM CHLORIDE 20 MEQ TABLET.ER. PO SCH ×2 (09:12→17:17)
[2018-08-10] MEDS: METOPROLOL SUCC 24HR ER 50 MG TAB.ER.24H. PO SCH (09:12)
[2018-08-10] MEDS: DULoxetine HCL 60 MG CAPSULE.DR PO SCH (09:12)
[2018-08-10] MEDS: DIVALPROEX SODIUM 250 MG TABLET.DR. PO SCH ×2 (09:12→19:46)
[2018-08-10] MEDS: THIAMINE 100 MG TABLET. PO SCH (09:13)
[2018-08-10] MEDS: FUROSEMIDE 40 MG TABLET PO SCH ×2 (09:13→12:22)
[2018-08-10] MEDS: DOCUSATE SODIUM 100 MG CAPSULE PO SCH (09:13)
[2018-08-10] MEDS: MULTIVITAMIN with MINERAL TABLET. PO SCH (09:13)
[2018-08-10] MEDS: LOSARTAN 25 MG TABLET. PO SCH (09:13)
[2018-08-10] MEDS: GABAPENTIN 100 MG CAPSULE. PO SCH ×3 (09:15→17:17)
[2018-08-10] MEDS: INSULIN LISPRO 300 UNITS/3 ML INSULN.PEN. SQ SCH ×3 (09:16→17:20)
[2018-08-10] MEDS: NYSTATIN 100,000 UNIT/GM TOPICAL CREAM 15GM TUBE. TP SCH ×2 (12:42→21:30)
[2018-08-10 15:49] VITALS: BP_SYST 120; BP_SYST 20; BP_DIAS 54
[2018-08-10] MEDS: MELATONIN 3 MG TABLET PO SCH (19:47)
[2018-08-10] MEDS: QUEtiapine 25 MG TABLET. PO SCH (19:47)
[2018-08-10] MEDS: INSULIN GLARGINE 300 UNITS/3 ML INSULN.PEN. SQ SCH (21:00)
--- NOTE | 2018-08-10 22:41 | PDOC ---
Exam Note: Adriano Note: Please also refer to the separate dictated note~for this date of service dictated separately.~Patient seen individually. Discussed the patient with Nursing staff reviewed the chart.~Reviewed interim history and current functioning. Reviewed vital signs,~Labs/ Radiology~and current medications noted below. Continue current treatment with the changes noted in the dictated addendum note Assessment: Vital Signs: Vital Signs Date Time Temp Pulse Resp B/P (MAP) Pulse Ox O2 Delivery O2 Flow Rate FiO2 08/10/18 19:54 66 151/65 08/10/18 15:49 98.0 17 98 Room Air I&O Intake and Output 08/10/18 07:00 Intake Total 960 ml Balance 960 ml Intake Oral 960 ml # Voids 1 Labs: Laboratory Tests Test 08/10/18 07:15 08/10/18 08:57 08/10/18 11:56 08/10/18 16:57 Glucose (Fingerstick) 67 mg/dL (70-99) L 153 mg/dL (70-99) H 118 mg/dL (70-99) H 78 mg/dL (70-99) Test 08/10/18 19:35 Glucose (Fingerstick) 96 mg/dL (70-99) Current Medications: Meds: Current Medications Acetaminophen (Tylenol) 650 mg PRN Q6HRS PRN PO PAIN / TEMP Last administered on 08/03/18at 22:20; Start 08/03/18 at 21:45 Gabapentin (Neurontin) 100 mg TIDWMEALS PO Last administered on 08/10/18at 17:17 ; Start 08/04/18 at 08:00 Insulin Glargine (Lantus) 30 units QHS SQ ; Start 08/04/18 at 21:00; Stop at 21:00; Status DC Losartan Potassium (Cozaar) 25 mg DAILY PO Last administered on 08/10/18at 09:13 ; Start 08/04/18 at 09:00 Al Hydroxide/Mg Hydroxide (Mylanta Plus Xs) 15 ml PRN AFTMEALHC PRN PO DYSPEPSIA; Start 08/03/18 at 21:45 Multi-Ingredient Ointment (Analgesic [place]) 1 raquel PRN QID PRN TP MUSCLE PAIN; Start 08/03/18 at 21:45 Potassium Chloride (Klor-Con) 20 meq BIDWMEALS PO Last administered on 17:17; Start 08/04/18 at 08:00 Tramadol HCl (Ultram) 50 mg PRN QHS PRN PO PAIN Last administered on 08/03/18at 22:20; Start 08/03/18 at 22:15; Stop 08/04/18 at 01:08; Status DC Tramadol HCl (Ultram) 50 mg PRN DAILY PRN PO PAIN; Start 08/03/18 at 21:45; Stop 08/04/18 at 01:08; Status DC Buspirone HCl (Buspar) 10 mg DAILY PO ; Start 08/04/18 at 09:00; Stop 08/04/18 at 09:00; Status DC Divalproex Sodium (Depakote Er) 500 mg BID PO Last administered on 08/04/18at 08 :27; Start 08/04/18 at 09:00; Stop 08/04/18 at 13:30; Status DC Docusate Sodium (Colace) 200 mg DAILY PO Last administered on 08/10/18 09:13; Start 08/04/18 at 09:00 Duloxetine HCl (Cymbalta) 30 mg DAILY PO Last administered on 08/05/18 08:33; Start 08/04/18 at 09:00; Stop 08/05/18 at 11:09; Status DC Folic Acid (Folic Acid) 1 mg DAILY PO Last administered on 08/10/18 09:12; Start 08/04/18 at 09:00 Furosemide (Lasix) 40 mg BIDACBL PO Last administered on 08/10/18 12:22; Start 08/04/18 at 07:30 Hydralazine HCl (Apresoline) 50 mg TID PO Last administered on 08/10/18 19:54; Start 08/04/18 at 09:00 Insulin Human Lispro (HumaLOG) TID ac TIDAC SQ ; Start 08/04/18 at 07:30; Stop 08/04/18 at 07:30; Status DC Insulin Human Lispro (HumaLOG) 10 units TIDAC SQ ; Start 08/04/18 at 07:30; Stop 08/04/18 at 07:30; Status DC Magnesium Hydroxide (Milk Of Magnesia) 2,400 mg PRN DAILY PRN PO CONSTIPATION Last administered on 08/08/18 22:17; Start 08/03/18 at 22:00 Medroxyprogesterone Acetate (Provera) 15 mg DAILY PO Last administered on 09:11; Start 08/04/18 at 09:00 Melatonin 3 mg QHS PO Last administered on 08/10/18 19:47; Start 08/04/18 at 21 :00 Metoprolol Succinate (Toprol Xl) 100 mg DAILY PO Last administered on 08/10/18 09:12; Start 08/04/18 at 09:00 Multivitamins/ Calcium (Thera-M Plus) 1 tab DAILY PO Last administered on 09:13; Start 08/04/18 at 09:00 Olanzapine (ZyPREXA) 2.5 mg PRN Q2HR PRN PO AGITATION Last administered on 08/07 18:45; Start 08/03/18 at 22:00 Ondansetron HCl (Zofran Odt) 4 mg PRN Q6HRS PRN PO NAUSEA/VOMITING; Start 08/03 at 22:00 Quetiapine Fumarate (SEROquel) 25 mg QHS PO Last administered on 08/10/18 19:47 ; Start 08/04/18 at 21:00 Thiamine HCl (Vitamin B-1) 100 mg DAILY PO Last administered on 08/10/18 09:13 ; Start 08/04/18 at 09:00 Trazodone HCl (Desyrel) 150 mg PRN QHS PRN PO INSOMNIA Last administered on 02:27; Start 08/03/18 at 22:15 Triamcinolone Acetonide (Kenalog) 1 raquel PRN DAILY PRN TP RASH; Start 08/03/18 at 22:15 Lidocaine (Xylocaine) 1 raquel PRN DAILY PRN TP PAIN; Start 08/03/18 at 22:15; Stop 08/04/18 at 14:03; Status DC Insulin Glargine (Lantus) 30 units QHS SQ ; Start 08/04/18 at 21:00; Stop at 21:00; Status DC Insulin Human Lispro (HumaLOG) 0-7 UNITS TIDWMEALS PRN SQ ELEVATED BS; Start at 00:15 Dextrose 12.5 gm PRN Q15MIN PRN IV SEE COMMENTS; Start 08/04/18 at 00:15 Glucose (Insta-Glucose) 15 gm PRN Q15MIN PRN PO LOW BLOOD SUGAR; Start at 00:15 Insulin Human Lispro (HumaLOG) 10 units TIDAC SQ Last administered on at 12:22; Start 08/04/18 at 07:30; Stop 08/04/18 at 17:33; Status DC Buspirone HCl (Buspar) 10 mg PRN DAILY PRN PO ANXIETY / AGITATION; Start at 09:00 Tramadol HCl (Ultram) 50 mg PRN BID PRN PO PAIN Last administered on 08/06/18 21:03; Start 08/04/18 at 01:15 Lactobacillus Rhamnosus (Culturelle) 1 cap BID PO Last administered on 19:49; Start 08/04/18 at 09:00 Nystatin (Mycostatin) 1 raquel BID TP Last administered on 08/10/18 21:30; Start 08/04/18 at 09:00 Cefpodoxime Proxetil (Vantin) 200 mg BID PO ; Start 08/04/18 at 09:00; Stop at 09:00; Status DC Doxycycline Hyclate (Vibra-Tab) 100 mg [id number] PO Last administered on 08/10/18 17:17; Start 08/04/18 at 06:00 Cefdinir (Omnicef) 300 mg BID PO Last administered on 08/10/18 19:49; Start at 09:00 Divalproex Sodium (Depakote) 500 mg BID PO Last administered on 08/10/18 19:46 ; Start 08/04/18 at 21:00 Lidocaine (Xylocaine) 1 raquel PRN DAILY PRN TP PAIN; Start 08/04/18 at 14:15 Insulin Glargine (Lantus) 40 units QHS SQ Last administered on 08/09/18 20:19; Start 08/04/18 at 21:00 Insulin Human Lispro (HumaLOG) 15 units TIDAC SQ Last administered on 08/10/18 17:20; Start 08/05/18 at 07:30 Insulin Human Lispro (HumaLOG) 15 units 1X ONCE SQ Last administered on at 09:39; Start 08/05/18 at 07:30; Stop 08/05/18 at 09:28; Status DC Duloxetine HCl (Cymbalta) 60 mg DAILY PO Last administered on 08/10/18at 09:12; Start 08/06/18 at 09:00 Haloperidol Lactate (Haldol) 5 mg DAILY IM Last administered on 08/09/18at 14:58 ; Start 08/09/18 at 15:00 Lorazepam (Ativan) 2 mg DAILY IM ; Start 08/09/18 at 15:00; Stop 08/09/18 at 15:00 ; Status DC Lorazepam (Ativan) 1 mg DAILY IM Last administered on 08/09/18at 14:57; Start 08/09/18 at 15:00 Active Scripts Active Reported Cozaar (Losartan Potassium) 25 Mg Tablet 25 Mg PO DAILY Tramadol Hcl (Tramadol HCl) 50 Mg Tablet 50 Mg PO HS PRN Hydralazine Hcl 50 Mg Tablet 50 Mg PO TID Zyprexa (Olanzapine) 2.5 Mg Tablet 2.5 Mg PO PRN Q2HR PRN Metoprolol Succinate ( Xl ) (Metoprolol Succinate) 100 Mg Tab.er.24h 100 Mg PO DAILY Analgesic [place] (Methyl Salicylate/Menthol) 28 Gm Oint...g. 1 Raquel TP PRN QID PRN Mag-Al Plus Xs Suspension (Mag Hydrox/Al Hydrox/Simeth) 30 Ml Oral.susp 15 Ml PO PRN AFTMEALHC PRN Humalog (Insulin Lispro) 100 Unit/1 Ml Cartridge 10 Unit SQ TIDAC Lantus Solostar (Insulin Glargine,Hum.rec.anlog) 100 Unit/1 Ml Insuln.pen 30 Unit SQ QHS Duloxetine Hcl 30 Mg Capsule.dr 30 Mg PO DAILY Depakote (Divalproex Sodium) 500 Mg Tablet.dr 500 Mg PO BID Seroquel (Quetiapine Fumarate) 25 Mg Tablet 25 Mg PO HS Triamcinolone Acetonide 15 Gm Cream..g. 1 Raquel TP PRN DAILY PRN Ondansetron Odt (Ondansetron) 4 Mg Tab.rapdis 4 Mg PO PRN Q6HRS PRN Furosemide 40 Mg Tablet 60 Mg PO BIDACBL Acetaminophen 325 Mg Tablet 650 Mg PO PRN Q6HRS PRN Tramadol Hcl (Tramadol HCl) 50 Mg Tablet 50 Mg PO PRN DAILY PRN [Lidocaine Oint 5%] 1 Raquel TP PRN DAILY Apply to heel prior to wound debridement. One Daily Plus Minerals (Multivitamin With Minerals) 1 Each Tablet 1 Tab PO DAILY Docusate Sodium 100 Mg Capsule 200 Mg PO DAILY Humalog (Insulin Lispro) 100 Unit/1 Ml Cartridge 0-7 Unit SQ TIDAC For BG <70 units, notify provider IF EATING IF NOT EATING B-150 0 units 0 units B-200 3 units 0 units B-250 4 units 2 units B-300 6 units 3 units B-350 7 units 4 units BG <60 or >351 notify provider Trazodone Hcl 150 Mg Tablet 1 Tab PO QHS Medroxyprogesterone Acetate 10 Mg Tablet 15 Mg PO DAILY Buspirone Hcl 10 Mg Tablet 1 Tab PO DAILY Klor-Con M20 (Potassium Chloride) 20 Meq Tab.er.prt 1 Tab PO BIDWMEALS Melatonin 3 Mg Tablet 1 Tab PO QHS Milk Of Magnesia (Magnesium Hydroxide) 2,400 Mg/10 Ml Oral.susp 2,400 Mg PO PRN DAILY PRN Thiamine Hcl 100 Mg Tablet 100 Mg PO DAILY Folic Acid 1 Mg Tablet 1 Tab PO DAILY Gabapentin (Gabapentin) 100 Mg Capsule 100 Mg PO TIDWMEALS I have reviewed the current psychotropics carefully including drug interactions. Risk benefit ratio favors no change other than as noted in my dictated progress note. Diagnosis: Problems: (1) Anxiety disorder (2) Impulse control disorder (3) Bipolar affective disorder, mixed (4) Dementia, vascular, with delusions (5) Dementia with behavioral disturbance LIZ DIANE MD Aug 10, 2018 22:41
--- NOTE | 2018-08-11 03:25 | PN ---
DATE: 08/09/2018 This late entry for 08/09/2018 covers elements not covered in my initial note. SUBJECTIVE: I met with the patient in the evening and discussed with nursing staff 2 or 3 occasions during the day. He has been sexually inappropriate, telling female nursing staff that he wants to make a baby with them. He then told another staff member that he wanted to do certain sexual act on yet another female nursing staff. I addressed this with him individually, he minimizes this, but accepts that he should not have said that, seems to remember it. He slept 6-3/4 hours. REVIEW OF SYSTEMS: Ambulation impaired, in wheelchair walker. No CV, , pulmonary, eye system symptoms on review. MENTAL STATUS EXAM: Oriented to himself and situation. Speech coherent, has some latency. Abstraction fair, computation impaired, language function intact, attention span short. Mood and affect remains labile. LABORATORY DATA: Reviewed. IMPRESSION: Unchanged from initial note. PLAN: Continue current psychotropics. We may need to increase the Provera and we started him on Haldol 5 mg, Ativan 1 mg IM daily scheduled since the oral route has been ineffective with the psychotropics. We will make further changes as clinically indicated. LIZ DIANE MD DR: MATILDA/james JOB#: [id number] / [id number]
[2018-08-11] MEDS: DOXYCYCLINE HYCLATE 100 MG TABLET PO SCH ×2 (05:46→17:10)
[2018-08-11 05:49] VITALS: BP 171/74
[2018-08-11 07:47] LABS: BASO % 1 % (0-3); EOS # 0.1 x10^3/uL (0.0-0.7); EOS % 2 % (0-3); HEMATOCRIT 39.5 % (39.0-53.0); LYMPH % 29 % (24-48); MEAN CORPUSCULAR HEMOGLOBIN 30 pg (25-35); MEAN CORPUSCULAR HGB CONC 33 g/dL (31-37); MEAN CORPUSCULAR VOLUME 91 fL (79-100); MONO # 0.4 x10^3/uL (0.0-1.1); MONO % 6 % (0-9); NEUT # 4.2 x10^3uL (1.8-7.7); NEUT % 62 % (31-73); PLATELET COUNT 185 x10^3/uL (140-400); RED BLOOD COUNT 4.33 x10^6/uL (4.30-5.70); RED CELL DISTRIBUTION WIDTH 15.1 % (11.5-14.5); WHITE BLOOD COUNT 6.8 x10^3/uL (4.0-11.0)
[2018-08-11] MEDS: FOLIC ACID 1 MG TABLET PO SCH (08:02)
[2018-08-11] MEDS: FUROSEMIDE 40 MG TABLET PO SCH ×2 (08:02→12:48)
[2018-08-11] MEDS: MULTIVITAMIN with MINERAL TABLET. PO SCH (08:02)
[2018-08-11] MEDS: LACTOBACILLUS RHAMNOSUS GG 1 CAPSULE. PO SCH ×2 (08:02→19:39)
[2018-08-11] MEDS: THIAMINE 100 MG TABLET. PO SCH (08:03)
[2018-08-11] MEDS: DULoxetine HCL 60 MG CAPSULE.DR PO SCH (08:03)
[2018-08-11] MEDS: medroxyPROGESTERone 5 MG TABLET PO SCH (08:03)
[2018-08-11] MEDS: POTASSIUM CHLORIDE 20 MEQ TABLET.ER. PO SCH ×2 (08:05→17:10)
[2018-08-11 08:06] LABS: ALBUMIN 3.1 g/dL (3.4-5.0); ALBUMIN/GLOBULIN RATIO 0.7 (1.0-1.7); ALK PHOS 59 U/L (46-116); ALT (SGPT) 17 U/L (16-63); ANION GAP 11 (6-14); AST (SGOT) 13 U/L (15-37); BLOOD UREA NITROGEN 18 mg/dL (8-26); BUN/CREATININE RATIO 16 (6-20); CALCIUM 8.9 mg/dL (8.5-10.1); CARBON DIOXIDE 26 mmol/L (21-32); CHLORIDE 106 mmol/L (98-107); CREATININE 1.1 mg/dL (0.7-1.3); GFR 65.4; GLUCOSE 109 mg/dL (70-99); POTASSIUM 4.1 mmol/L (3.5-5.1); SODIUM 143 mmol/L (136-145); TOTAL BILIRUBIN 0.5 mg/dL (0.2-1.0); TOTAL PROTEIN 7.5 g/dL (6.4-8.2); VAL ACID 46 mcg/mL (50-100)
[2018-08-11] MEDS: METOPROLOL SUCC 24HR ER 50 MG TAB.ER.24H. PO SCH (08:06)
[2018-08-11] MEDS: LOSARTAN 25 MG TABLET. PO SCH (08:06)
[2018-08-11] MEDS: CEFDINIR 300 MG CAPSULE PO SCH ×2 (08:07→19:39)
[2018-08-11] MEDS: DOCUSATE SODIUM 100 MG CAPSULE PO SCH (08:07)
[2018-08-11] MEDS: DIVALPROEX SODIUM 250 MG TABLET.DR. PO SCH (08:07)
[2018-08-11] MEDS: GABAPENTIN 100 MG CAPSULE. PO SCH ×3 (08:10→17:09)
[2018-08-11] MEDS: NYSTATIN 100,000 UNIT/GM TOPICAL CREAM 15GM TUBE. TP SCH ×2 (08:10→19:45)
[2018-08-11] MEDS: INSULIN LISPRO 300 UNITS/3 ML INSULN.PEN. SQ SCH ×3 (08:12→17:09)
[2018-08-11] MEDS: HALOPERIDOL LACT 5 MG/ML VIAL. IM SCH (09:00)
[2018-08-11] MEDS: OLANZapine 2.5 MG TABLET PO PRN (14:53)
[2018-08-11 16:48] VITALS: BP 147/76
[2018-08-11] MEDS: MELATONIN 3 MG TABLET PO SCH (19:39)
[2018-08-11] MEDS: QUEtiapine 25 MG TABLET. PO SCH (19:39)
[2018-08-11] MEDS: INSULIN GLARGINE 300 UNITS/3 ML INSULN.PEN. SQ SCH (19:43)
[2018-08-11] MEDS: traMADol 50 MG TABLET PO PRN (19:47)
[2018-08-11] MEDS ORDERED: DIVALPROEX 125 MG CAP.SPRINK PO SCH (21:00)
--- NOTE | 2018-08-11 21:38 | PN ---
DATE: 08/10/2018 PSYCHIATRIC PROGRESS NOTE This late entry 08/10/2018 covers elements not covered in my initial note. SUBJECTIVE: I met with the patient in the evening. The patient slept 7 hours previous night. At night, he was sexually inappropriate with staff. During the day on 08/10/2018, somewhat more calm, compliant, went to physical therapy, did his exercises. We will check a valproic acid level. REVIEW OF SYSTEMS: Ambulation impaired. No CV, , pulmonary, eye system symptoms on review. MENTAL STATUS EXAM: Oriented to himself and situation. Speech coherent, has some latency. Abstraction fair, computation impaired, language function intact, attention span short. Mood and affect remain somewhat labile at times. LABORATORY DATA: Reviewed. IMPRESSION: Unchanged from initial note. PLAN: We will adjust Depakote post-labs. Rest unchanged for now. MAN Newton DIANE MD DR: MATILDA/james JOB#: [id number] / [id number]
--- NOTE | 2018-08-11 22:35 | PDOC ---
Exam Note: Adriano Note: Please also refer to the separate dictated note~for this date of service dictated separately.~Patient seen individually. Discussed the patient with Nursing staff reviewed the chart.~Reviewed interim history and current functioning. Reviewed vital signs,~Labs/ Radiology~and current medications noted below. Continue current treatment with the changes noted in the dictated addendum note Assessment: Vital Signs: Vital Signs Date Time Temp Pulse Resp B/P (MAP) Pulse Ox O2 Delivery O2 Flow Rate FiO2 08/11/18 21:28 99 08/11/18 19:41 64 147/76 08/11/18 16:48 98.1 20 08/10/18 15:49 Room Air I&O Intake and Output 08/11/18 07:00 Intake Total 1080 ml Balance 1080 ml Intake Oral 1080 ml Labs: Laboratory Tests Test 08/11/18 07:36 08/11/18 07:40 08/11/18 12:00 08/11/18 16:47 White Blood Count 6.8 x10^3/uL (4.0-11.0) Red Blood Count 4.33 x10^6/uL (4.30-5.70) Hemoglobin 13.0 g/dL (13.0-17.5) Hematocrit 39.5 % (39.0-53.0) Mean Corpuscular Volume 91 fL (79-100) Mean Corpuscular Hemoglobin 30 pg (25-35) Mean Corpuscular Hemoglobin Concent 33 g/dL (31-37) Red Cell Distribution Width 15.1 % (11.5-14.5) H Platelet Count 185 x10^3/uL (140-400) Neutrophils (%) (Auto) 62 % (31-73) Lymphocytes (%) (Auto) 29 % (24-48) Monocytes (%) (Auto) 6 % (0-9) Eosinophils (%) (Auto) 2 % (0-3) Basophils (%) (Auto) 1 % (0-3) Neutrophils # (Auto) 4.2 x10^3uL (1.8-7.7) Lymphocytes # (Auto) 2.0 x10^3/uL (1.0-4.8) Monocytes # (Auto) 0.4 x10^3/uL (0.0-1.1) Eosinophils # (Auto) 0.1 x10^3/uL (0.0-0.7) Basophils # (Auto) 0.0 x10^3/uL (0.0-0.2) Sodium Level 143 mmol/L (136-145) Potassium Level 4.1 mmol/L (3.5-5.1) Chloride Level 106 mmol/L (98-107) Carbon Dioxide Level 26 mmol/L (21-32) Anion Gap 11 (6-14) Blood Urea Nitrogen 18 mg/dL (8-26) Creatinine 1.1 mg/dL (0.7-1.3) Estimated GFR (Cockcroft-Gault) 65.4 BUN/Creatinine Ratio 16 (6-20) Glucose Level 109 mg/dL (70-99) H Calcium Level 8.9 mg/dL (8.5-10.1) Total Bilirubin 0.5 mg/dL (0.2-1.0) Aspartate Amino Transferase (AST) 13 U/L (15-37) L Alanine Aminotransferase (ALT) 17 U/L (16-63) Alkaline Phosphatase 59 U/L (46-116) Total Protein 7.5 g/dL (6.4-8.2) Albumin 3.1 g/dL (3.4-5.0) L Albumin/Globulin Ratio 0.7 (1.0-1.7) L Valproic Acid Level 46 mcg/mL (50-100) L Valproic Acid Last Dose Date 08/10/18 Valproic Acid Last Dose Time 2100 Glucose (Fingerstick) 106 mg/dL (70-99) H 124 mg/dL (70-99) H 145 mg/dL (70-99) H Test 08/11/18 19:18 Glucose (Fingerstick) 177 mg/dL (70-99) H Current Medications: Meds: Current Medications Acetaminophen (Tylenol) 650 mg PRN Q6HRS PRN PO PAIN / TEMP Last administered on 08/03/18at 22:20; Start 08/03/18 at 21:45 Gabapentin (Neurontin) 100 mg TIDWMEALS PO Last administered on 08/11/18at 17:09 ; Start 08/04/18 at 08:00 Insulin Glargine (Lantus) 30 units QHS SQ ; Start 08/04/18 at 21:00; Stop at 21:00; Status DC Losartan Potassium (Cozaar) 25 mg DAILY PO Last administered on 08/11/18at 08:06 ; Start 08/04/18 at 09:00 Al Hydroxide/Mg Hydroxide (Mylanta Plus Xs) 15 ml PRN AFTMEALHC PRN PO DYSPEPSIA; Start 08/03/18 at 21:45 Multi-Ingredient Ointment (Analgesic Superior) 1 raquel PRN QID PRN TP MUSCLE PAIN; Start 08/03/18 at 21:45 Potassium Chloride (Klor-Con) 20 meq BIDWMEALS PO Last administered on 17:10; Start 08/04/18 at 08:00 Tramadol HCl (Ultram) 50 mg PRN QHS PRN PO PAIN Last administered on 08/03/18at 22:20; Start 08/03/18 at 22:15; Stop 08/04/18 at 01:08; Status DC Tramadol HCl (Ultram) 50 mg PRN DAILY PRN PO PAIN; Start 08/03/18 at 21:45; Stop 08/04/18 at 01:08; Status DC Buspirone HCl (Buspar) 10 mg DAILY PO ; Start 08/04/18 at 09:00; Stop 08/04/18 at 09:00; Status DC Divalproex Sodium (Depakote Er) 500 mg BID PO Last administered on 08/04/18at 08 :27; Start 08/04/18 at 09:00; Stop 08/04/18 at 13:30; Status DC Docusate Sodium (Colace) 200 mg DAILY PO Last administered on 08/11/18at 08:07; Start 08/04/18 at 09:00 Duloxetine HCl (Cymbalta) 30 mg DAILY PO Last administered on 08/05/18at 08:33; Start 08/04/18 at 09:00; Stop 08/05/18 at 11:09; Status DC Folic Acid (Folic Acid) 1 mg DAILY PO Last administered on 08/11/18 08:02; Start 08/04/18 at 09:00 Furosemide (Lasix) 40 mg BIDACBL PO Last administered on 08/11/18at 12:48; Start 08/04/18 at 07:30 Hydralazine HCl (Apresoline) 50 mg TID PO Last administered on 08/11/18 19:41; Start 08/04/18 at 09:00 Insulin Human Lispro (HumaLOG) TID ac TIDAC SQ ; Start 08/04/18 at 07:30; Stop 08/04/18 at 07:30; Status DC Insulin Human Lispro (HumaLOG) 10 units TIDAC SQ ; Start 08/04/18 at 07:30; Stop 08/04/18 at 07:30; Status DC Magnesium Hydroxide (Milk Of Magnesia) 2,400 mg PRN DAILY PRN PO CONSTIPATION Last administered on 08/08/18 22:17; Start 08/03/18 at 22:00 Medroxyprogesterone Acetate (Provera) 15 mg DAILY PO Last administered on 08:03; Start 08/04/18 at 09:00 Melatonin 3 mg QHS PO Last administered on 08/11/18 19:39; Start 08/04/18 at 21 :00 Metoprolol Succinate (Toprol Xl) 100 mg DAILY PO Last administered on 08/11/18 08:06; Start 08/04/18 at 09:00 Multivitamins/ Calcium (Thera-M Plus) 1 tab DAILY PO Last administered on 08:02; Start 08/04/18 at 09:00 Olanzapine (ZyPREXA) 2.5 mg PRN Q2HR PRN PO AGITATION Last administered on 14:53; Start 08/03/18 at 22:00 Ondansetron HCl (Zofran Odt) 4 mg PRN Q6HRS PRN PO NAUSEA/VOMITING; Start 08/03 at 22:00 Quetiapine Fumarate (SEROquel) 25 mg QHS PO Last administered on 08/11/18 19:39 ; Start 08/04/18 at 21:00 Thiamine HCl (Vitamin B-1) 100 mg DAILY PO Last administered on 08/11/18 08:03 ; Start 08/04/18 at 09:00 Trazodone HCl (Desyrel) 150 mg PRN QHS PRN PO INSOMNIA Last administered on 02:27; Start 08/03/18 at 22:15 Triamcinolone Acetonide (Kenalog) 1 raquel PRN DAILY PRN TP RASH; Start 08/03/18 at 22:15 Lidocaine (Xylocaine) 1 raquel PRN DAILY PRN TP PAIN; Start 08/03/18 at 22:15; Stop 08/04/18 at 14:03; Status DC Insulin Glargine (Lantus) 30 units QHS SQ ; Start 08/04/18 at 21:00; Stop at 21:00; Status DC Insulin Human Lispro (HumaLOG) 0-7 UNITS TIDWMEALS PRN SQ ELEVATED BS; Start at 00:15 Dextrose 12.5 gm PRN Q15MIN PRN IV SEE COMMENTS; Start 08/04/18 at 00:15 Glucose (Insta-Glucose) 15 gm PRN Q15MIN PRN PO LOW BLOOD SUGAR; Start at 00:15 Insulin Human Lispro (HumaLOG) 10 units TIDAC SQ Last administered on at 12:22; Start 08/04/18 at 07:30; Stop 08/04/18 at 17:33; Status DC Buspirone HCl (Buspar) 10 mg PRN DAILY PRN PO ANXIETY / AGITATION; Start at 09:00 Tramadol HCl (Ultram) 50 mg PRN BID PRN PO PAIN Last administered on 08/11/18 19:47; Start 08/04/18 at 01:15 Lactobacillus Rhamnosus (Culturelle) 1 cap BID PO Last administered on 19:39; Start 08/04/18 at 09:00 Nystatin (Mycostatin) 1 raquel BID TP Last administered on 08/11/18at 19:45; Start 08/04/18 at 09:00 Cefpodoxime Proxetil (Vantin) 200 mg BID PO ; Start 08/04/18 at 09:00; Stop at 09:00; Status DC Doxycycline Hyclate (Vibra-Tab) 100 mg BID66 PO Last administered on 08/11/18 17:10; Start 08/04/18 at 06:00 Cefdinir (Omnicef) 300 mg BID PO Last administered on 08/11/18 19:39; Start at 09:00 Divalproex Sodium (Depakote) 500 mg BID PO Last administered on 4/3/19at 08:07 ; Start 08/04/18 at 21:00; Stop 08/11/18 at 19:13; Status DC Lidocaine (Xylocaine) 1 raquel PRN DAILY PRN TP PAIN; Start 08/04/18 at 14:15 Insulin Glargine (Lantus) 40 units QHS SQ Last administered on 08/11/18 19:43; Start 08/04/18 at 21:00 Insulin Human Lispro (HumaLOG) 15 units TIDAC SQ Last administered on 08/11/18at 17:09; Start 08/05/18 at 07:30 Insulin Human Lispro (HumaLOG) 15 units 1X ONCE SQ Last administered on at 09:39; Start 08/05/18 at 07:30; Stop 08/05/18 at 09:28; Status DC Duloxetine HCl (Cymbalta) 60 mg DAILY PO Last administered on 08/11/18 08:03; Start 08/06/18 at 09:00 Haloperidol Lactate (Haldol) 5 mg DAILY IM Last administered on 08/09/18at 14:58 ; Start 08/09/18 at 15:00 Lorazepam (Ativan) 2 mg DAILY IM ; Start 08/09/18 at 15:00; Stop 08/09/18 at 15:00 ; Status DC Lorazepam (Ativan) 1 mg DAILY IM Last administered on 08/09/18at 14:57; Start 08/09/18 at 15:00 Divalproex Sodium (Depakote) 500 mg DAILY PO ; Start 08/12/18 at 09:00 Divalproex Sodium (Depakote Sprinkles) 750 mg HS PO Last administered on at 19:41; Start 08/11/18 at 21:00 Active Scripts Active Reported Cozaar (Losartan Potassium) 25 Mg Tablet 25 Mg PO DAILY Tramadol Hcl (Tramadol HCl) 50 Mg Tablet 50 Mg PO HS PRN Hydralazine Hcl 50 Mg Tablet 50 Mg PO TID Zyprexa (Olanzapine) 2.5 Mg Tablet 2.5 Mg PO PRN Q2HR PRN Metoprolol Succinate ( Xl ) (Metoprolol Succinate) 100 Mg Tab.er.24h 100 Mg PO DAILY Analgesic Superior (Methyl Salicylate/Menthol) 28 Gm Oint...g. 1 Raquel TP PRN QID PRN Mag-Al Plus Xs Suspension (Mag Hydrox/Al Hydrox/Simeth) 30 Ml Oral.susp 15 Ml PO PRN AFTMEALHC PRN Humalog (Insulin Lispro) 100 Unit/1 Ml Cartridge 10 Unit SQ TIDAC Lantus Solostar (Insulin Glargine,Hum.rec.anlog) 100 Unit/1 Ml Insuln.pen 30 Unit SQ QHS Duloxetine Hcl 30 Mg Capsule.dr 30 Mg PO DAILY Depakote (Divalproex Sodium) 500 Mg Tablet.dr 500 Mg PO BID Seroquel (Quetiapine Fumarate) 25 Mg Tablet 25 Mg PO HS Triamcinolone Acetonide 15 Gm Cream..g. 1 Raquel TP PRN DAILY PRN Ondansetron Odt (Ondansetron) 4 Mg Tab.rapdis 4 Mg PO PRN Q6HRS PRN Furosemide 40 Mg Tablet 60 Mg PO BIDACBL Acetaminophen 325 Mg Tablet 650 Mg PO PRN Q6HRS PRN Tramadol Hcl (Tramadol HCl) 50 Mg Tablet 50 Mg PO PRN DAILY PRN [Lidocaine Oint 5%] 1 Raquel TP PRN DAILY Apply to heel prior to wound debridement. One Daily Plus Minerals (Multivitamin With Minerals) 1 Each Tablet 1 Tab PO DAILY Docusate Sodium 100 Mg Capsule 200 Mg PO DAILY Humalog (Insulin Lispro) 100 Unit/1 Ml Cartridge 0-7 Unit SQ TIDAC For BG <70 units, notify provider IF EATING IF NOT EATING B-150 0 units 0 units B-200 3 units 0 units B-250 4 units 2 units B-300 6 units 3 units B-350 7 units 4 units BG <60 or >351 notify provider Trazodone Hcl 150 Mg Tablet 1 Tab PO QHS Medroxyprogesterone Acetate 10 Mg Tablet 15 Mg PO DAILY Buspirone Hcl 10 Mg Tablet 1 Tab PO DAILY Klor-Con M20 (Potassium Chloride) 20 Meq Tab.er.prt 1 Tab PO BIDWMEALS Melatonin 3 Mg Tablet 1 Tab PO QHS Milk Of Magnesia (Magnesium Hydroxide) 2,400 Mg/10 Ml Oral.susp 2,400 Mg PO PRN DAILY PRN Thiamine Hcl 100 Mg Tablet 100 Mg PO DAILY Folic Acid 1 Mg Tablet 1 Tab PO DAILY Gabapentin (Gabapentin) 100 Mg Capsule 100 Mg PO TIDWMEALS I have reviewed the current psychotropics carefully including drug interactions. Risk benefit ratio favors no change other than as noted in my dictated progress note. Diagnosis: Problems: (1) Anxiety disorder (2) Impulse control disorder (3) Bipolar affective disorder, mixed (4) Dementia, vascular, with delusions (5) Dementia with behavioral disturbance LIZ DIANE MD Aug 11, 2018 22:35
[2018-08-12 06:03] VITALS: BP 151/75
[2018-08-12] MEDS: DOXYCYCLINE HYCLATE 100 MG TABLET PO SCH ×2 (06:05→17:00)
[2018-08-12] MEDS: INSULIN LISPRO 300 UNITS/3 ML INSULN.PEN. SQ SCH ×3 (07:30→17:50)
[2018-08-12] MEDS: METOPROLOL SUCC 24HR ER 50 MG TAB.ER.24H. PO SCH (08:18)
[2018-08-12] MEDS: CEFDINIR 300 MG CAPSULE PO SCH ×2 (08:18→21:03)
[2018-08-12] MEDS: LACTOBACILLUS RHAMNOSUS GG 1 CAPSULE. PO SCH ×2 (08:18→21:03)
[2018-08-12] MEDS: THIAMINE 100 MG TABLET. PO SCH (08:19)
[2018-08-12] MEDS: medroxyPROGESTERone 5 MG TABLET PO SCH (08:19)
[2018-08-12] MEDS: DULoxetine HCL 60 MG CAPSULE.DR PO SCH (08:19)
[2018-08-12] MEDS: DOCUSATE SODIUM 100 MG CAPSULE PO SCH (08:20)
[2018-08-12] MEDS: POTASSIUM CHLORIDE 20 MEQ TABLET.ER. PO SCH ×2 (08:20→17:00)
[2018-08-12] MEDS: MULTIVITAMIN with MINERAL TABLET. PO SCH (08:20)
[2018-08-12] MEDS: FUROSEMIDE 40 MG TABLET PO SCH ×2 (08:20→12:45)
[2018-08-12] MEDS: LOSARTAN 25 MG TABLET. PO SCH (08:20)
[2018-08-12] MEDS: FOLIC ACID 1 MG TABLET PO SCH (08:20)
[2018-08-12] MEDS: DIVALPROEX SODIUM 250 MG TABLET.DR. PO SCH (08:23)
[2018-08-12] MEDS: NYSTATIN 100,000 UNIT/GM TOPICAL CREAM 15GM TUBE. TP SCH ×2 (08:23→21:03)
[2018-08-12] MEDS: GABAPENTIN 100 MG CAPSULE. PO SCH ×3 (08:23→17:01)
[2018-08-12] MEDS: HALOPERIDOL LACT 5 MG/ML VIAL. IM SCH (09:00)
[2018-08-12] MEDS: MAGNESIUM HYDROXIDE 2,400 MG/30 ML ORAL.SUSP. PO PRN (12:56)
[2018-08-12 16:14] VITALS: BP 152/80
[2018-08-12] MEDS: MELATONIN 3 MG TABLET PO SCH (21:03)
[2018-08-12] MEDS: QUEtiapine 25 MG TABLET. PO SCH (21:03)
[2018-08-12] MEDS: INSULIN GLARGINE 300 UNITS/3 ML INSULN.PEN. SQ SCH (21:05)
[2018-08-12] MEDS: DIVALPROEX SODIUM 125 MG TABLET.DR. PO SCH (21:06)
--- NOTE | 2018-08-12 22:42 | PDOC ---
Exam Note: Adriano Note: Please also refer to the separate dictated note~for this date of service dictated separately.~Patient seen individually. Discussed the patient with Nursing staff reviewed the chart.~Reviewed interim history and current functioning. Reviewed vital signs,~Labs/ Radiology~and current medications noted below. Continue current treatment with the changes noted in the dictated addendum note Assessment: Vital Signs: Vital Signs Date Time Temp Pulse Resp B/P (MAP) Pulse Ox O2 Delivery O2 Flow Rate FiO2 08/12/18 21:03 69 152/80 08/12/18 16:14 98.5 16 99 Room Air I&O Intake and Output 08/12/18 07:00 Intake Total 960 ml Balance 960 ml Intake Oral 960 ml Labs: Laboratory Tests Test 08/12/18 07:30 08/12/18 11:55 08/12/18 16:59 08/12/18 19:18 Glucose (Fingerstick) 67 mg/dL (70-99) L 220 mg/dL (70-99) H 169 mg/dL (70-99) H 146 mg/dL (70-99) H Current Medications: Meds: Current Medications Acetaminophen (Tylenol) 650 mg PRN Q6HRS PRN PO PAIN / TEMP Last administered on 08/03/18at 22:20; Start 08/03/18 at 21:45 Gabapentin (Neurontin) 100 mg TIDWMEALS PO Last administered on 08/12/18at 17:01 ; Start 08/04/18 at 08:00 Insulin Glargine (Lantus) 30 units QHS SQ ; Start 08/04/18 at 21:00; Stop at 21:00; Status DC Losartan Potassium (Cozaar) 25 mg DAILY PO Last administered on 08/12/18at 08:20 ; Start 08/04/18 at 09:00 Al Hydroxide/Mg Hydroxide (Mylanta Plus Xs) 15 ml PRN AFTMEALHC PRN PO DYSPEPSIA; Start 08/03/18 at 21:45 Multi-Ingredient Ointment (Analgesic [place]) 1 raquel PRN QID PRN TP MUSCLE PAIN; Start 08/03/18 at 21:45 Potassium Chloride (Klor-Con) 20 meq BIDWMEALS PO Last administered on at 17:00; Start 08/04/18 at 08:00 Tramadol HCl (Ultram) 50 mg PRN QHS PRN PO PAIN Last administered on 08/03/18at 22:20; Start 08/03/18 at 22:15; Stop 08/04/18 at 01:08; Status DC Tramadol HCl (Ultram) 50 mg PRN DAILY PRN PO PAIN; Start 08/03/18 at 21:45; Stop 08/04/18 at 01:08; Status DC Buspirone HCl (Buspar) 10 mg DAILY PO ; Start 08/04/18 at 09:00; Stop 08/04/18 at 09:00; Status DC Divalproex Sodium (Depakote Er) 500 mg BID PO Last administered on 08/04/18at 08 :27; Start 08/04/18 at 09:00; Stop 08/04/18 at 13:30; Status DC Docusate Sodium (Colace) 200 mg DAILY PO Last administered on 08/12/18 08:20; Start 08/04/18 at 09:00 Duloxetine HCl (Cymbalta) 30 mg DAILY PO Last administered on 08/05/18 08:33; Start 08/04/18 at 09:00; Stop 08/05/18 at 11:09; Status DC Folic Acid (Folic Acid) 1 mg DAILY PO Last administered on 08/12/18 08:20; Start 08/04/18 at 09:00 Furosemide (Lasix) 40 mg BIDACBL PO Last administered on 08/12/18 12:45; Start 08/04/18 at 07:30 Hydralazine HCl (Apresoline) 50 mg TID PO Last administered on 08/12/18 21:03; Start 08/04/18 at 09:00 Insulin Human Lispro (HumaLOG) TID ac TIDAC SQ ; Start 08/04/18 at 07:30; Stop 08/04/18 at 07:30; Status DC Insulin Human Lispro (HumaLOG) 10 units TIDAC SQ ; Start 08/04/18 at 07:30; Stop 08/04/18 at 07:30; Status DC Magnesium Hydroxide (Milk Of Magnesia) 2,400 mg PRN DAILY PRN PO CONSTIPATION Last administered on 08/12/18at 12:56; Start 08/03/18 at 22:00 Medroxyprogesterone Acetate (Provera) 15 mg DAILY PO Last administered on 08:19; Start 08/04/18 at 09:00 Melatonin 3 mg QHS PO Last administered on 08/12/18 21:03; Start 08/04/18 at 21 :00 Metoprolol Succinate (Toprol Xl) 100 mg DAILY PO Last administered on 08/12/18 08:18; Start 08/04/18 at 09:00 Multivitamins/ Calcium (Thera-M Plus) 1 tab DAILY PO Last administered on 08:20; Start 08/04/18 at 09:00 Olanzapine (ZyPREXA) 2.5 mg PRN Q2HR PRN PO AGITATION Last administered on 14:53; Start 08/03/18 at 22:00 Ondansetron HCl (Zofran Odt) 4 mg PRN Q6HRS PRN PO NAUSEA/VOMITING; Start 08/03 at 22:00 Quetiapine Fumarate (SEROquel) 25 mg QHS PO Last administered on 08/12/18 21:03 ; Start 08/04/18 at 21:00 Thiamine HCl (Vitamin B-1) 100 mg DAILY PO Last administered on 08/12/18 08:19 ; Start 08/04/18 at 09:00 Trazodone HCl (Desyrel) 150 mg PRN QHS PRN PO INSOMNIA Last administered on 02:27; Start 08/03/18 at 22:15 Triamcinolone Acetonide (Kenalog) 1 raquel PRN DAILY PRN TP RASH; Start 08/03/18 at 22:15 Lidocaine (Xylocaine) 1 raquel PRN DAILY PRN TP PAIN; Start 08/03/18 at 22:15; Stop 08/04/18 at 14:03; Status DC Insulin Glargine (Lantus) 30 units QHS SQ ; Start 08/04/18 at 21:00; Stop at 21:00; Status DC Insulin Human Lispro (HumaLOG) 0-7 UNITS TIDWMEALS PRN SQ ELEVATED BS; Start at 00:15 Dextrose 12.5 gm PRN Q15MIN PRN IV SEE COMMENTS; Start 08/04/18 at 00:15 Glucose (Insta-Glucose) 15 gm PRN Q15MIN PRN PO LOW BLOOD SUGAR; Start at 00:15 Insulin Human Lispro (HumaLOG) 10 units TIDAC SQ Last administered on at 12:22; Start 08/04/18 at 07:30; Stop 08/04/18 at 17:33; Status DC Buspirone HCl (Buspar) 10 mg PRN DAILY PRN PO ANXIETY / AGITATION; Start at 09:00 Tramadol HCl (Ultram) 50 mg PRN BID PRN PO PAIN Last administered on 08/11/18 19:47; Start 08/04/18 at 01:15 Lactobacillus Rhamnosus (Culturelle) 1 cap BID PO Last administered on 21:03; Start 08/04/18 at 09:00 Nystatin (Mycostatin) 1 raquel BID TP Last administered on 08/12/18 21:03; Start 08/04/18 at 09:00 Cefpodoxime Proxetil (Vantin) 200 mg BID PO ; Start 08/04/18 at 09:00; Stop at 09:00; Status DC Doxycycline Hyclate (Vibra-Tab) 100 mg BID66 PO Last administered on 08/12/18 17:00; Start 08/04/18 at 06:00 Cefdinir (Omnicef) 300 mg BID PO Last administered on 08/12/18 21:03; Start at 09:00 Divalproex Sodium (Depakote) 500 mg BID PO Last administered on 08/11/18 08:07 ; Start 08/04/18 at 21:00; Stop 08/11/18 at 19:13; Status DC Lidocaine (Xylocaine) 1 raquel PRN DAILY PRN TP PAIN; Start 08/04/18 at 14:15 Insulin Glargine (Lantus) 40 units QHS SQ Last administered on 08/12/18 21:05; Start 08/04/18 at 21:00 Insulin Human Lispro (HumaLOG) 15 units TIDAC SQ Last administered on 08/12/18 17:50; Start 08/05/18 at 07:30 Insulin Human Lispro (HumaLOG) 15 units 1X ONCE SQ Last administered on 09:39; Start 08/05/18 at 07:30; Stop 08/05/18 at 09:28; Status DC Duloxetine HCl (Cymbalta) 60 mg DAILY PO Last administered on 08/12/18 08:19; Start 08/06/18 at 09:00 Haloperidol Lactate (Haldol) 5 mg DAILY IM Last administered on 08/09/18at 14:58 ; Start 08/09/18 at 15:00 Lorazepam (Ativan) 2 mg DAILY IM ; Start 08/09/18 at 15:00; Stop 08/09/18 at 15:00 ; Status DC Lorazepam (Ativan) 1 mg DAILY IM Last administered on 08/09/18at 14:57; Start 08/09/18 at 15:00 Divalproex Sodium (Depakote) 500 mg DAILY PO Last administered on 08/12/18at 08: 23; Start 08/12/18 at 09:00 Divalproex Sodium (Depakote Sprinkles) 750 mg HS PO Last administered on at 19:41; Start 08/11/18 at 21:00; Stop 08/12/18 at 00:48; Status DC Divalproex Sodium (Depakote) 750 mg QHS PO Last administered on 08/12/18at 21:06 ; Start 08/12/18 at 21:00 Active Scripts Active Reported Cozaar (Losartan Potassium) 25 Mg Tablet 25 Mg PO DAILY Tramadol Hcl (Tramadol HCl) 50 Mg Tablet 50 Mg PO HS PRN Hydralazine Hcl 50 Mg Tablet 50 Mg PO TID Zyprexa (Olanzapine) 2.5 Mg Tablet 2.5 Mg PO PRN Q2HR PRN Metoprolol Succinate ( Xl ) (Metoprolol Succinate) 100 Mg Tab.er.24h 100 Mg PO DAILY Analgesic [place] (Methyl Salicylate/Menthol) 28 Gm Oint...g. 1 Raquel TP PRN QID PRN Mag-Al Plus Xs Suspension (Mag Hydrox/Al Hydrox/Simeth) 30 Ml Oral.susp 15 Ml PO PRN AFTMEALHC PRN Humalog (Insulin Lispro) 100 Unit/1 Ml Cartridge 10 Unit SQ TIDAC Lantus Solostar (Insulin Glargine,Hum.rec.anlog) 100 Unit/1 Ml Insuln.pen 30 Unit SQ QHS Duloxetine Hcl 30 Mg Capsule.dr 30 Mg PO DAILY Depakote (Divalproex Sodium) 500 Mg Tablet.dr 500 Mg PO BID Seroquel (Quetiapine Fumarate) 25 Mg Tablet 25 Mg PO HS Triamcinolone Acetonide 15 Gm Cream..g. 1 Raquel TP PRN DAILY PRN Ondansetron Odt (Ondansetron) 4 Mg Tab.rapdis 4 Mg PO PRN Q6HRS PRN Furosemide 40 Mg Tablet 60 Mg PO BIDACBL Acetaminophen 325 Mg Tablet 650 Mg PO PRN Q6HRS PRN Tramadol Hcl (Tramadol HCl) 50 Mg Tablet 50 Mg PO PRN DAILY PRN [Lidocaine Oint 5%] 1 Raquel TP PRN DAILY Apply to heel prior to wound debridement. One Daily Plus Minerals (Multivitamin With Minerals) 1 Each Tablet 1 Tab PO DAILY Docusate Sodium 100 Mg Capsule 200 Mg PO DAILY Humalog (Insulin Lispro) 100 Unit/1 Ml Cartridge 0-7 Unit SQ TIDAC For BG <70 units, notify provider IF EATING IF NOT EATING B-150 0 units 0 units B-200 3 units 0 units B-250 4 units 2 units B-300 6 units 3 units B-350 7 units 4 units BG <60 or >351 notify provider Trazodone Hcl 150 Mg Tablet 1 Tab PO QHS Medroxyprogesterone Acetate 10 Mg Tablet 15 Mg PO DAILY Buspirone Hcl 10 Mg Tablet 1 Tab PO DAILY Klor-Con M20 (Potassium Chloride) 20 Meq Tab.er.prt 1 Tab PO BIDWMEALS Melatonin 3 Mg Tablet 1 Tab PO QHS Milk Of Magnesia (Magnesium Hydroxide) 2,400 Mg/10 Ml Oral.susp 2,400 Mg PO PRN DAILY PRN Thiamine Hcl 100 Mg Tablet 100 Mg PO DAILY Folic Acid 1 Mg Tablet 1 Tab PO DAILY Gabapentin (Gabapentin) 100 Mg Capsule 100 Mg PO TIDWMEALS I have reviewed the current psychotropics carefully including drug interactions. Risk benefit ratio favors no change other than as noted in my dictated progress note. Diagnosis: Problems: (1) Anxiety disorder (2) Impulse control disorder (3) Bipolar affective disorder, mixed (4) Dementia, vascular, with delusions (5) Dementia with behavioral disturbance ROXI,MAN M MD Aug 12, 2018 22:42
[2018-08-13] MEDS: traMADol 50 MG TABLET PO PRN (00:11)
[2018-08-13] MEDS: ACETAMINOPHEN 325 MG TABLET PO PRN (05:37)
[2018-08-13] MEDS: DOXYCYCLINE HYCLATE 100 MG TABLET PO SCH ×2 (05:37→17:49)
[2018-08-13 05:39] VITALS: BP 146/81
[2018-08-13] MEDS: DULoxetine HCL 60 MG CAPSULE.DR PO SCH (08:05)
[2018-08-13] MEDS: DOCUSATE SODIUM 100 MG CAPSULE PO SCH (08:06)
[2018-08-13] MEDS: POTASSIUM CHLORIDE 20 MEQ TABLET.ER. PO SCH ×2 (08:06→17:49)
[2018-08-13] MEDS: medroxyPROGESTERone 5 MG TABLET PO SCH (08:06)
[2018-08-13] MEDS: FOLIC ACID 1 MG TABLET PO SCH (08:06)
[2018-08-13] MEDS: MULTIVITAMIN with MINERAL TABLET. PO SCH (08:06)
[2018-08-13] MEDS: DIVALPROEX SODIUM 250 MG TABLET.DR. PO SCH (08:06)
[2018-08-13] MEDS: CEFDINIR 300 MG CAPSULE PO SCH ×2 (08:07→20:17)
[2018-08-13] MEDS: HALOPERIDOL LACT 5 MG/ML VIAL. IM SCH (08:07)
[2018-08-13] MEDS: FUROSEMIDE 40 MG TABLET PO SCH ×2 (08:07→12:23)
[2018-08-13] MEDS: LACTOBACILLUS RHAMNOSUS GG 1 CAPSULE. PO SCH ×2 (08:07→20:17)
[2018-08-13] MEDS: THIAMINE 100 MG TABLET. PO SCH (08:07)
[2018-08-13] MEDS: LOSARTAN 25 MG TABLET. PO SCH (08:09)
[2018-08-13] MEDS: METOPROLOL SUCC 24HR ER 50 MG TAB.ER.24H. PO SCH (08:09)
[2018-08-13] MEDS: GABAPENTIN 100 MG CAPSULE. PO SCH ×3 (08:11→17:49)
[2018-08-13] MEDS: INSULIN LISPRO 300 UNITS/3 ML INSULN.PEN. SQ SCH ×3 (08:14→17:55)
[2018-08-13] MEDS: NYSTATIN 100,000 UNIT/GM TOPICAL CREAM 15GM TUBE. TP SCH ×2 (09:00→20:20)
[2018-08-13 16:31] VITALS: BP 159/87
--- NOTE | 2018-08-13 18:29 | PN ---
DATE: 08/11/2018 PSYCHIATRIC PROGRESS NOTE This late entry 08/11/2018 covers elements not covered in my initial note. SUBJECTIVE: I met with the patient in the evening. The patient slept 7-1/2 hours previous night. He did well the previous night, did not receive the IM Haldol, Ativan and did well in the morning, but by the afternoon, he was upset. He was trying to elope from the unit from the backyard and, Annie, social service staff talked to him and was able to deescalate and slept 7-1/2 hours. Valproic acid level is 46 on Depakote delayed release 500 b.i.d. REVIEW OF SYSTEMS: Ambulation impaired with walker. No CV, , pulmonary, eye system symptoms on review. MENTAL STATUS EXAM: Oriented to himself and situation. Speech coherent, has some latency. Abstraction fair, computation impaired, language function intact, attention span short. Mood and affect, somewhat anxious, but improved. LABORATORY DATA: Reviewed. IMPRESSION: Unchanged from initial note. PLAN: Increase Depakote delayed release to 500 mg a.m., 750 at bedtime. Check CBC, CMP, valproic acid level in 3 days to reach therapeutic level. Rest unchanged and social service staff is trying to coordinate to transition to [facility] closer to his son, Ildefonso. MAN Newton DIANE MD DR: MATILDA/james JOB#: [id number] / [id number]
[2018-08-13] MEDS: MELATONIN 3 MG TABLET PO SCH (20:17)
[2018-08-13] MEDS: DIVALPROEX SODIUM 125 MG TABLET.DR. PO SCH (20:17)
[2018-08-13] MEDS: QUEtiapine 25 MG TABLET. PO SCH (20:18)
[2018-08-13] MEDS: INSULIN GLARGINE 300 UNITS/3 ML INSULN.PEN. SQ SCH (20:19)
--- NOTE | 2018-08-13 22:38 | PDOC ---
Exam Note: Adriano Note: Please also refer to the separate dictated note~for this date of service dictated separately.~Patient seen individually. Discussed the patient with Nursing staff reviewed the chart.~Reviewed interim history and current functioning. Reviewed vital signs,~Labs/ Radiology~and current medications noted below. Continue current treatment with the changes noted in the dictated addendum note Assessment: Vital Signs: Vital Signs Date Time Temp Pulse Resp B/P (MAP) Pulse Ox O2 Delivery O2 Flow Rate FiO2 08/13/18 20:18 80 159/87 08/13/18 16:31 98.7 18 97 08/13/18 05:39 Room Air I&O Intake and Output 08/13/18 07:00 Intake Total 1080 ml Balance 1080 ml Intake Oral 1080 ml # Bowel Movements 1 Labs: Laboratory Tests Test 08/13/18 07:14 08/13/18 11:49 08/13/18 17:01 08/13/18 19:33 Glucose (Fingerstick) 106 mg/dL (70-99) H 127 mg/dL (70-99) H 151 mg/dL (70-99) H 186 mg/dL (70-99) H Current Medications: Meds: Current Medications Acetaminophen (Tylenol) 650 mg PRN Q6HRS PRN PO PAIN / TEMP Last administered on 08/13/18 05:37; Start 08/03/18 at 21:45 Gabapentin (Neurontin) 100 mg TIDWMEALS PO Last administered on 08/13/18at 17:49 ; Start 08/04/18 at 08:00 Insulin Glargine (Lantus) 30 units QHS SQ ; Start 08/04/18 at 21:00; Stop at 21:00; Status DC Losartan Potassium (Cozaar) 25 mg DAILY PO Last administered on 08/13/18at 08:09 ; Start 08/04/18 at 09:00 Al Hydroxide/Mg Hydroxide (Mylanta Plus Xs) 15 ml PRN AFTMEALHC PRN PO DYSPEPSIA; Start 08/03/18 at 21:45 Multi-Ingredient Ointment (Analgesic [place]) 1 raquel PRN QID PRN TP MUSCLE PAIN; Start 08/03/18 at 21:45 Potassium Chloride (Klor-Con) 20 meq BIDWMEALS PO Last administered on 4/5/ 19at 17:49; Start 08/04/18 at 08:00 Tramadol HCl (Ultram) 50 mg PRN QHS PRN PO PAIN Last administered on 08/03/18 22:20; Start 08/03/18 at 22:15; Stop 08/04/18 at 01:08; Status DC Tramadol HCl (Ultram) 50 mg PRN DAILY PRN PO PAIN; Start 08/03/18 at 21:45; Stop 08/04/18 at 01:08; Status DC Buspirone HCl (Buspar) 10 mg DAILY PO ; Start 08/04/18 at 09:00; Stop 08/04/18 at 09:00; Status DC Divalproex Sodium (Depakote Er) 500 mg BID PO Last administered on 08/04/18 08 :27; Start 08/04/18 at 09:00; Stop 08/04/18 at 13:30; Status DC Docusate Sodium (Colace) 200 mg DAILY PO Last administered on 08/13/18 08:06; Start 08/04/18 at 09:00 Duloxetine HCl (Cymbalta) 30 mg DAILY PO Last administered on 08/05/18 08:33; Start 08/04/18 at 09:00; Stop 08/05/18 at 11:09; Status DC Folic Acid (Folic Acid) 1 mg DAILY PO Last administered on 08/13/18 08:06; Start 08/04/18 at 09:00 Furosemide (Lasix) 40 mg BIDACBL PO Last administered on 08/13/18 12:23; Start 08/04/18 at 07:30 Hydralazine HCl (Apresoline) 50 mg TID PO Last administered on 08/13/18 20:18; Start 08/04/18 at 09:00 Insulin Human Lispro (HumaLOG) TID ac TIDAC SQ ; Start 08/04/18 at 07:30; Stop 08/04/18 at 07:30; Status DC Insulin Human Lispro (HumaLOG) 10 units TIDAC SQ ; Start 08/04/18 at 07:30; Stop 08/04/18 at 07:30; Status DC Magnesium Hydroxide (Milk Of Magnesia) 2,400 mg PRN DAILY PRN PO CONSTIPATION Last administered on 4/4/19at 12:56; Start 08/03/18 at 22:00 Medroxyprogesterone Acetate (Provera) 15 mg DAILY PO Last administered on 08:06; Start 08/04/18 at 09:00 Melatonin 3 mg QHS PO Last administered on 08/13/18 20:17; Start 08/04/18 at 21 :00 Metoprolol Succinate (Toprol Xl) 100 mg DAILY PO Last administered on 08/13/18 08:09; Start 08/04/18 at 09:00 Multivitamins/ Calcium (Thera-M Plus) 1 tab DAILY PO Last administered on 08:06; Start 08/04/18 at 09:00 Olanzapine (ZyPREXA) 2.5 mg PRN Q2HR PRN PO AGITATION Last administered on 14:53; Start 08/03/18 at 22:00 Ondansetron HCl (Zofran Odt) 4 mg PRN Q6HRS PRN PO NAUSEA/VOMITING; Start 08/03 at 22:00 Quetiapine Fumarate (SEROquel) 25 mg QHS PO Last administered on 08/13/18 20:18 ; Start 08/04/18 at 21:00 Thiamine HCl (Vitamin B-1) 100 mg DAILY PO Last administered on 08/13/18 08:07 ; Start 08/04/18 at 09:00 Trazodone HCl (Desyrel) 150 mg PRN QHS PRN PO INSOMNIA Last administered on 02:27; Start 08/03/18 at 22:15 Triamcinolone Acetonide (Kenalog) 1 raquel PRN DAILY PRN TP RASH; Start 08/03/18 at 22:15 Lidocaine (Xylocaine) 1 raquel PRN DAILY PRN TP PAIN; Start 08/03/18 at 22:15; Stop 08/04/18 at 14:03; Status DC Insulin Glargine (Lantus) 30 units QHS SQ ; Start 08/04/18 at 21:00; Stop at 21:00; Status DC Insulin Human Lispro (HumaLOG) 0-7 UNITS TIDWMEALS PRN SQ ELEVATED BS; Start at 00:15 Dextrose 12.5 gm PRN Q15MIN PRN IV SEE COMMENTS; Start 08/04/18 at 00:15 Glucose (Insta-Glucose) 15 gm PRN Q15MIN PRN PO LOW BLOOD SUGAR; Start at 00:15 Insulin Human Lispro (HumaLOG) 10 units TIDAC SQ Last administered on at 12:22; Start 08/04/18 at 07:30; Stop 08/04/18 at 17:33; Status DC Buspirone HCl (Buspar) 10 mg PRN DAILY PRN PO ANXIETY / AGITATION; Start at 09:00 Tramadol HCl (Ultram) 50 mg PRN BID PRN PO PAIN Last administered on 08/13/18 00:11; Start 08/04/18 at 01:15 Lactobacillus Rhamnosus (Culturelle) 1 cap BID PO Last administered on 20:17; Start 08/04/18 at 09:00 Nystatin (Mycostatin) 1 raquel BID TP Last administered on 08/13/18 20:20; Start 08/04/18 at 09:00 Cefpodoxime Proxetil (Vantin) 200 mg BID PO ; Start 08/04/18 at 09:00; Stop at 09:00; Status DC Doxycycline Hyclate (Vibra-Tab) 100 mg BID66 PO Last administered on 08/13/18 17:49; Start 08/04/18 at 06:00 Cefdinir (Omnicef) 300 mg BID PO Last administered on 08/13/18 20:17; Start at 09:00 Divalproex Sodium (Depakote) 500 mg BID PO Last administered on 08/11/18 08:07 ; Start 08/04/18 at 21:00; Stop 08/11/18 at 19:13; Status DC Lidocaine (Xylocaine) 1 raquel PRN DAILY PRN TP PAIN; Start 08/04/18 at 14:15 Insulin Glargine (Lantus) 40 units QHS SQ Last administered on 08/13/18 20:19; Start 08/04/18 at 21:00 Insulin Human Lispro (HumaLOG) 15 units TIDAC SQ Last administered on 08/13/18at 17:55; Start 08/05/18 at 07:30 Insulin Human Lispro (HumaLOG) 15 units 1X ONCE SQ Last administered on 09:39; Start 08/05/18 at 07:30; Stop 08/05/18 at 09:28; Status DC Duloxetine HCl (Cymbalta) 60 mg DAILY PO Last administered on 08/13/18 08:05; Start 08/06/18 at 09:00 Haloperidol Lactate (Haldol) 5 mg DAILY IM Last administered on 08/13/18 08:07 ; Start 08/09/18 at 15:00 Lorazepam (Ativan) 2 mg DAILY IM ; Start 08/09/18 at 15:00; Stop 08/09/18 at 15:00 ; Status DC Lorazepam (Ativan) 1 mg DAILY IM Last administered on 08/13/18at 08:11; Start 08/09/18 at 15:00 Divalproex Sodium (Depakote) 500 mg DAILY PO Last administered on 08/13/18 08: 06; Start 08/12/18 at 09:00 Divalproex Sodium (Depakote Sprinkles) 750 mg HS PO Last administered on at 19:41; Start 08/11/18 at 21:00; Stop 08/12/18 at 00:48; Status DC Divalproex Sodium (Depakote) 750 mg QHS PO Last administered on 08/13/18 20:17 ; Start 08/12/18 at 21:00 Active Scripts Active Reported Cozaar (Losartan Potassium) 25 Mg Tablet 25 Mg PO DAILY Tramadol Hcl (Tramadol HCl) 50 Mg Tablet 50 Mg PO HS PRN Hydralazine Hcl 50 Mg Tablet 50 Mg PO TID Zyprexa (Olanzapine) 2.5 Mg Tablet 2.5 Mg PO PRN Q2HR PRN Metoprolol Succinate ( Xl ) (Metoprolol Succinate) 100 Mg Tab.er.24h 100 Mg PO DAILY Analgesic [place] (Methyl Salicylate/Menthol) 28 Gm Oint...g. 1 Raquel TP PRN QID PRN Mag-Al Plus Xs Suspension (Mag Hydrox/Al Hydrox/Simeth) 30 Ml Oral.susp 15 Ml PO PRN AFTMEALHC PRN Humalog (Insulin Lispro) 100 Unit/1 Ml Cartridge 10 Unit SQ TIDAC Lantus Solostar (Insulin Glargine,Hum.rec.anlog) 100 Unit/1 Ml Insuln.pen 30 Unit SQ QHS Duloxetine Hcl 30 Mg Capsule. 30 Mg PO DAILY Depakote (Divalproex Sodium) 500 Mg Tablet.dr 500 Mg PO BID Seroquel (Quetiapine Fumarate) 25 Mg Tablet 25 Mg PO HS Triamcinolone Acetonide 15 Gm Cream..g. 1 Raquel TP PRN DAILY PRN Ondansetron Odt (Ondansetron) 4 Mg Tab.rapdis 4 Mg PO PRN Q6HRS PRN Furosemide 40 Mg Tablet 60 Mg PO BIDACBL Acetaminophen 325 Mg Tablet 650 Mg PO PRN Q6HRS PRN Tramadol Hcl (Tramadol HCl) 50 Mg Tablet 50 Mg PO PRN DAILY PRN [Lidocaine Oint 5%] 1 Raquel TP PRN DAILY Apply to heel prior to wound debridement. One Daily Plus Minerals (Multivitamin With Minerals) 1 Each Tablet 1 Tab PO DAILY Docusate Sodium 100 Mg Capsule 200 Mg PO DAILY Humalog (Insulin Lispro) 100 Unit/1 Ml Cartridge 0-7 Unit SQ TIDAC For BG <70 units, notify provider IF EATING IF NOT EATING B-150 0 units 0 units B-200 3 units 0 units B-250 4 units 2 units B-300 6 units 3 units B-350 7 units 4 units BG <60 or >351 notify provider Trazodone Hcl 150 Mg Tablet 1 Tab PO QHS Medroxyprogesterone Acetate 10 Mg Tablet 15 Mg PO DAILY Buspirone Hcl 10 Mg Tablet 1 Tab PO DAILY Klor-Con M20 (Potassium Chloride) 20 Meq Tab.er.prt 1 Tab PO BIDWMEALS Melatonin 3 Mg Tablet 1 Tab PO QHS Milk Of Magnesia (Magnesium Hydroxide) 2,400 Mg/10 Ml Oral.susp 2,400 Mg PO PRN DAILY PRN Thiamine Hcl 100 Mg Tablet 100 Mg PO DAILY Folic Acid 1 Mg Tablet 1 Tab PO DAILY Gabapentin (Gabapentin) 100 Mg Capsule 100 Mg PO TIDWMEALS I have reviewed the current psychotropics carefully including drug interactions. Risk benefit ratio favors no change other than as noted in my dictated progress note. Diagnosis: Problems: (1) Anxiety disorder (2) Impulse control disorder (3) Bipolar affective disorder, mixed (4) Dementia, vascular, with delusions (5) Dementia with behavioral disturbance LIZ DIANE MD Aug 13, 2018 22:38
[2018-08-14] MEDS: DOXYCYCLINE HYCLATE 100 MG TABLET PO SCH ×2 (05:48→17:17)
[2018-08-14 06:08] VITALS: BP 154/86
[2018-08-14] MEDS: INSULIN LISPRO 300 UNITS/3 ML INSULN.PEN. SQ SCH ×3 (07:30→18:19)
[2018-08-14] MEDS: POTASSIUM CHLORIDE 20 MEQ TABLET.ER. PO SCH ×2 (07:41→17:17)
[2018-08-14] MEDS: THIAMINE 100 MG TABLET. PO SCH (07:41)
[2018-08-14] MEDS: CEFDINIR 300 MG CAPSULE PO SCH ×2 (07:41→20:13)
[2018-08-14] MEDS: MULTIVITAMIN with MINERAL TABLET. PO SCH (07:41)
[2018-08-14] MEDS: DULoxetine HCL 60 MG CAPSULE.DR PO SCH (07:41)
[2018-08-14] MEDS: medroxyPROGESTERone 5 MG TABLET PO SCH (07:41)
[2018-08-14] MEDS: DOCUSATE SODIUM 100 MG CAPSULE PO SCH (07:42)
[2018-08-14] MEDS: FUROSEMIDE 40 MG TABLET PO SCH ×2 (07:42→11:13)
[2018-08-14] MEDS: LACTOBACILLUS RHAMNOSUS GG 1 CAPSULE. PO SCH ×2 (07:42→20:13)
[2018-08-14] MEDS: FOLIC ACID 1 MG TABLET PO SCH (07:42)
[2018-08-14] MEDS: DIVALPROEX SODIUM 250 MG TABLET.DR. PO SCH (07:42)
[2018-08-14] MEDS: LOSARTAN 25 MG TABLET. PO SCH (07:43)
[2018-08-14] MEDS: METOPROLOL SUCC 24HR ER 50 MG TAB.ER.24H. PO SCH (07:43)
[2018-08-14] MEDS: GABAPENTIN 100 MG CAPSULE. PO SCH ×3 (07:56→17:17)
[2018-08-14] MEDS: HALOPERIDOL LACT 5 MG/ML VIAL. IM SCH ×2 (07:57→09:00)
[2018-08-14] MEDS: NYSTATIN 100,000 UNIT/GM TOPICAL CREAM 15GM TUBE. TP SCH ×2 (07:58→20:16)
[2018-08-14] MEDS ORDERED: TRIAMCINOLONE ACETONIDE 0.1% TOPICAL CREAM 15GM TUBE. TP PRN (16:15)
[2018-08-14 16:55] VITALS: BP 110/61
[2018-08-14] MEDS: DIVALPROEX SODIUM 125 MG TABLET.DR. PO SCH (20:13)
[2018-08-14] MEDS: MELATONIN 3 MG TABLET PO SCH (20:13)
[2018-08-14] MEDS: QUEtiapine 25 MG TABLET. PO SCH (20:13)
[2018-08-14] MEDS: INSULIN GLARGINE 300 UNITS/3 ML INSULN.PEN. SQ SCH (20:15)
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
[2018-08-15 05:43] VITALS: BP 156/71
[2018-08-15] MEDS: DOXYCYCLINE HYCLATE 100 MG TABLET PO SCH (06:00)
[2018-08-15] MEDS: INSULIN LISPRO 300 UNITS/3 ML INSULN.PEN. SQ SCH ×3 (07:30→17:25)
[2018-08-15 07:59] LABS: BASO % 0 % (0-3); EOS # 0.1 x10^3/uL (0.0-0.7); EOS % 1 % (0-3); HEMOGLOBIN 12.4 g/dL (13.0-17.5); LYMPH # 1.3 x10^3/uL (1.0-4.8); LYMPH % 23 % (24-48); MEAN CORPUSCULAR HEMOGLOBIN 30 pg (25-35); MEAN CORPUSCULAR HGB CONC 34 g/dL (31-37); MEAN CORPUSCULAR VOLUME 91 fL (79-100); MONO # 0.4 x10^3/uL (0.0-1.1); MONO % 6 % (0-9); NEUT # 3.9 x10^3uL (1.8-7.7); NEUT % 69 % (31-73); PLATELET COUNT 168 x10^3/uL (140-400); RED BLOOD COUNT 4.09 x10^6/uL (4.30-5.70); WHITE BLOOD COUNT 5.7 x10^3/uL (4.0-11.0)
[2018-08-15 08:11] LABS: ALBUMIN 2.8 g/dL (3.4-5.0); ALBUMIN/GLOBULIN RATIO 0.7 (1.0-1.7); ALK PHOS 52 U/L (46-116); ALT (SGPT) 13 U/L (16-63); ANION GAP 7 (6-14); AST (SGOT) 8 U/L (15-37); BLOOD UREA NITROGEN 23 mg/dL (8-26); BUN/CREATININE RATIO 21 (6-20); CALCIUM 8.4 mg/dL (8.5-10.1); CARBON DIOXIDE 29 mmol/L (21-32); CHLORIDE 108 mmol/L (98-107); CREATININE 1.1 mg/dL (0.7-1.3); GFR 65.4; GLUCOSE 58 mg/dL (70-99); SODIUM 144 mmol/L (136-145); TOTAL BILIRUBIN 0.3 mg/dL (0.2-1.0)
[2018-08-15 08:18] LABS: VAL ACID 50 mcg/mL (50-100)
[2018-08-15] MEDS: FUROSEMIDE 40 MG TABLET PO SCH ×2 (08:58→09:13)
[2018-08-15] MEDS: NYSTATIN 100,000 UNIT/GM TOPICAL CREAM 15GM TUBE. TP SCH ×2 (09:00→20:32)
[2018-08-15] MEDS: POTASSIUM CHLORIDE 20 MEQ TABLET.ER. PO SCH ×2 (09:01→17:25)
[2018-08-15] MEDS: DOCUSATE SODIUM 100 MG CAPSULE PO SCH (09:02)
[2018-08-15] MEDS: LOSARTAN 25 MG TABLET. PO SCH (09:03)
[2018-08-15] MEDS: LACTOBACILLUS RHAMNOSUS GG 1 CAPSULE. PO SCH (09:03)
[2018-08-15] MEDS: DIVALPROEX SODIUM 250 MG TABLET.DR. PO SCH (09:03)
[2018-08-15] MEDS: DULoxetine HCL 60 MG CAPSULE.DR PO SCH (09:03)
[2018-08-15] MEDS: FOLIC ACID 1 MG TABLET PO SCH (09:03)
[2018-08-15] MEDS: CEFDINIR 300 MG CAPSULE PO SCH (09:04)
[2018-08-15] MEDS: medroxyPROGESTERone 5 MG TABLET PO SCH (09:08)
[2018-08-15] MEDS: MULTIVITAMIN with MINERAL TABLET. PO SCH (09:08)
[2018-08-15] MEDS: METOPROLOL SUCC 24HR ER 50 MG TAB.ER.24H. PO SCH (09:10)
[2018-08-15] MEDS: THIAMINE 100 MG TABLET. PO SCH (09:10)
[2018-08-15] MEDS: GABAPENTIN 100 MG CAPSULE. PO SCH ×3 (09:11→17:25)
--- NOTE | 2018-08-15 09:48 | PDOC ---
Exam Note: Adriano Note: Late entry for DOS 08/14/2018. Please also refer to the separate dictated note~ for this date of service dictated separately.~Patient seen individually. Discussed the patient with Nursing staff reviewed the chart.~Reviewed interim history and current functioning. Reviewed vital signs,~Labs/ Radiology~and current medications noted below. Continue current treatment with the changes noted in the dictated addendum note Assessment: Vital Signs: VS - Last 72 Hours, by Label Date Time Temp Pulse Resp B/P (MAP) Pulse Ox O2 Delivery O2 Flow Rate FiO2 08/15/18 09:10 65 122/63 08/15/18 09:03 65 122/63 08/15/18 09:02 65 122/63 08/15/18 05:43 98.5 72 18 156/71 (99) 96 08/14/18 20:14 65 110/61 08/14/18 16:55 98.4 65 18 110/61 (77) 95 Room Air 08/14/18 11:14 66 154/86 08/14/18 07:44 66 154/86 08/14/18 07:43 66 154/86 08/14/18 07:43 66 154/86 08/14/18 06:08 98.2 66 18 154/86 (108) 97 08/13/18 20:18 80 159/87 08/13/18 16:31 98.7 80 18 159/87 (111) 97 08/13/18 12:24 80 146/81 08/13/18 08:09 80 146/81 08/13/18 08:09 80 146/81 08/13/18 08:08 80 146/81 08/13/18 05:39 98.0 80 20 146/81 (102) 97 Room Air 08/13/18 02:32 20 08/13/18 00:11 20 08/12/18 21:03 69 152/80 08/12/18 16:14 98.5 69 16 152/80 (104) 99 Room Air 08/12/18 15:10 69 152/80 Vital Signs Date Time Temp Pulse Resp B/P (MAP) Pulse Ox O2 Delivery O2 Flow Rate FiO2 08/15/18 09:10 65 122/63 08/15/18 05:43 98.5 18 96 08/14/18 16:55 Room Air I&O Intake and Output 08/15/18 07:00 Intake Total 1200 ml Balance 1200 ml Intake Oral 1200 ml # Voids 1 Labs: Laboratory Tests Test 08/14/18 11:46 08/14/18 16:48 08/14/18 20:08 08/15/18 07:39 Glucose (Fingerstick) 95 mg/dL (70-99) 176 mg/dL (70-99) H 136 mg/dL (70-99) H White Blood Count 5.7 x10^3/uL (4.0-11.0) Red Blood Count 4.09 x10^6/uL (4.30-5.70) L Hemoglobin 12.4 g/dL (13.0-17.5) L Hematocrit 37.0 % (39.0-53.0) L Mean Corpuscular Volume 91 fL (79-100) Mean Corpuscular Hemoglobin 30 pg (25-35) Mean Corpuscular Hemoglobin Concent 34 g/dL (31-37) Red Cell Distribution Width 15.0 % (11.5-14.5) H Platelet Count 168 x10^3/uL (140-400) Neutrophils (%) (Auto) 69 % (31-73) Lymphocytes (%) (Auto) 23 % (24-48) L Monocytes (%) (Auto) 6 % (0-9) Eosinophils (%) (Auto) 1 % (0-3) Basophils (%) (Auto) 0 % (0-3) Neutrophils # (Auto) 3.9 x10^3uL (1.8-7.7) Lymphocytes # (Auto) 1.3 x10^3/uL (1.0-4.8) Monocytes # (Auto) 0.4 x10^3/uL (0.0-1.1) Eosinophils # (Auto) 0.1 x10^3/uL (0.0-0.7) Basophils # (Auto) 0.0 x10^3/uL (0.0-0.2) Sodium Level 144 mmol/L (136-145) Potassium Level 4.0 mmol/L (3.5-5.1) Chloride Level 108 mmol/L (98-107) H Carbon Dioxide Level 29 mmol/L (21-32) Anion Gap 7 (6-14) Blood Urea Nitrogen 23 mg/dL (8-26) Creatinine 1.1 mg/dL (0.7-1.3) Estimated GFR (Cockcroft-Gault) 65.4 BUN/Creatinine Ratio 21 (6-20) H Glucose Level 58 mg/dL (70-99) L Calcium Level 8.4 mg/dL (8.5-10.1) L Total Bilirubin 0.3 mg/dL (0.2-1.0) Aspartate Amino Transferase (AST) 8 U/L (15-37) L Alanine Aminotransferase (ALT) 13 U/L (16-63) L Alkaline Phosphatase 52 U/L (46-116) Total Protein 7.0 g/dL (6.4-8.2) Albumin 2.8 g/dL (3.4-5.0) L Albumin/Globulin Ratio 0.7 (1.0-1.7) L Valproic Acid Level 50 mcg/mL (50-100) Valproic Acid Last Dose Date 08/14/18 Valproic Acid Last Dose Time 2100 Test 08/15/18 08:01 Glucose (Fingerstick) 70 mg/dL (70-99) Current Medications: Meds: Current Medications Acetaminophen (Tylenol) 650 mg PRN Q6HRS PRN PO PAIN / TEMP Last administered on 08/13/18at 05:37; Start 08/03/18 at 21:45 Gabapentin (Neurontin) 100 mg TIDWMEALS PO Last administered on 08/15/18at 09:11 ; Start 08/04/18 at 08:00 Insulin Glargine (Lantus) 30 units QHS SQ ; Start 08/04/18 at 21:00; Stop at 21:00; Status DC Losartan Potassium (Cozaar) 25 mg DAILY PO Last administered on 08/15/18at 09:03 ; Start 08/04/18 at 09:00 Al Hydroxide/Mg Hydroxide (Mylanta Plus Xs) 15 ml PRN AFTMEALHC PRN PO DYSPEPSIA; Start 08/03/18 at 21:45 Multi-Ingredient Ointment (Analgesic [place]) 1 raquel PRN QID PRN TP MUSCLE PAIN; Start 08/03/18 at 21:45 Potassium Chloride (Klor-Con) 20 meq BIDWMEALS PO Last administered on at 09:01; Start 08/04/18 at 08:00 Tramadol HCl (Ultram) 50 mg PRN QHS PRN PO PAIN Last administered on 08/03/18at 22:20; Start 08/03/18 at 22:15; Stop 08/04/18 at 01:08; Status DC Tramadol HCl (Ultram) 50 mg PRN DAILY PRN PO PAIN; Start 08/03/18 at 21:45; Stop 08/04/18 at 01:08; Status DC Buspirone HCl (Buspar) 10 mg DAILY PO ; Start 08/04/18 at 09:00; Stop 08/04/18 at 09:00; Status DC Divalproex Sodium (Depakote Er) 500 mg BID PO Last administered on 08/04/18at 08 :27; Start 08/04/18 at 09:00; Stop 08/04/18 at 13:30; Status DC Docusate Sodium (Colace) 200 mg DAILY PO Last administered on 08/15/18 09:02; Start 08/04/18 at 09:00 Duloxetine HCl (Cymbalta) 30 mg DAILY PO Last administered on 08/05/18at 08:33; Start 08/04/18 at 09:00; Stop 08/05/18 at 11:09; Status DC Folic Acid (Folic Acid) 1 mg DAILY PO Last administered on 08/15/18 09:03; Start 08/04/18 at 09:00 Furosemide (Lasix) 40 mg BIDACBL PO Last administered on 08/15/18 08:58; Start 08/04/18 at 07:30 Hydralazine HCl (Apresoline) 50 mg TID PO Last administered on 08/15/18at 09:02; Start 08/04/18 at 09:00 Insulin Human Lispro (HumaLOG) TID ac TIDAC SQ ; Start 08/04/18 at 07:30; Stop 08/04/18 at 07:30; Status DC Insulin Human Lispro (HumaLOG) 10 units TIDAC SQ ; Start 08/04/18 at 07:30; Stop 08/04/18 at 07:30; Status DC Magnesium Hydroxide (Milk Of Magnesia) 2,400 mg PRN DAILY PRN PO CONSTIPATION Last administered on 08/12/18at 12:56; Start 08/03/18 at 22:00 Medroxyprogesterone Acetate (Provera) 15 mg DAILY PO Last administered on 09:08; Start 08/04/18 at 09:00 Melatonin 3 mg QHS PO Last administered on 08/14/18 20:13; Start 08/04/18 at 21 :00 Metoprolol Succinate (Toprol Xl) 100 mg DAILY PO Last administered on 08/15/18 09:10; Start 08/04/18 at 09:00 Multivitamins/ Calcium (Thera-M Plus) 1 tab DAILY PO Last administered on 09:08; Start 08/04/18 at 09:00 Olanzapine (ZyPREXA) 2.5 mg PRN Q2HR PRN PO AGITATION Last administered on 14:53; Start 08/03/18 at 22:00 Ondansetron HCl (Zofran Odt) 4 mg PRN Q6HRS PRN PO NAUSEA/VOMITING; Start 08/03 at 22:00 Quetiapine Fumarate (SEROquel) 25 mg QHS PO Last administered on 08/14/18 20:13 ; Start 08/04/18 at 21:00 Thiamine HCl (Vitamin B-1) 100 mg DAILY PO Last administered on 08/15/18 09:10 ; Start 08/04/18 at 09:00 Trazodone HCl (Desyrel) 150 mg PRN QHS PRN PO INSOMNIA Last administered on 02:27; Start 08/03/18 at 22:15 Triamcinolone Acetonide (Kenalog) 1 raquel PRN DAILY PRN TP RASH; Start 08/03/18 at 22:15; Stop 08/14/18 at 16:15; Status DC Lidocaine (Xylocaine) 1 raquel PRN DAILY PRN TP PAIN; Start 08/03/18 at 22:15; Stop 08/04/18 at 14:03; Status DC Insulin Glargine (Lantus) 30 units QHS SQ ; Start 08/04/18 at 21:00; Stop at 21:00; Status DC Insulin Human Lispro (HumaLOG) 0-7 UNITS TIDWMEALS PRN SQ ELEVATED BS; Start at 00:15 Dextrose 12.5 gm PRN Q15MIN PRN IV SEE COMMENTS; Start 08/04/18 at 00:15 Glucose (Insta-Glucose) 15 gm PRN Q15MIN PRN PO LOW BLOOD SUGAR; Start at 00:15 Insulin Human Lispro (HumaLOG) 10 units TIDAC SQ Last administered on at 12:22; Start 08/04/18 at 07:30; Stop 08/04/18 at 17:33; Status DC Buspirone HCl (Buspar) 10 mg PRN DAILY PRN PO ANXIETY / AGITATION; Start at 09:00 Tramadol HCl (Ultram) 50 mg PRN BID PRN PO PAIN Last administered on 08/13/18at 00:11; Start 08/04/18 at 01:15 Lactobacillus Rhamnosus (Culturelle) 1 cap BID PO Last administered on at 09:03; Start 08/04/18 at 09:00 Nystatin (Mycostatin) 1 raquel BID TP Last administered on 08/15/18at 09:00; Start 08/04/18 at 09:00 Cefpodoxime Proxetil (Vantin) 200 mg BID PO ; Start 08/04/18 at 09:00; Stop at 09:00; Status DC Doxycycline Hyclate (Vibra-Tab) 100 mg [id number] PO Last administered on 08/15/18at 06:00; Start 08/04/18 at 06:00 Cefdinir (Omnicef) 300 mg BID PO Last administered on 08/15/18at 09:04; Start at 09:00 Divalproex Sodium (Depakote) 500 mg BID PO Last administered on 08/11/18at 08:07 ; Start 08/04/18 at 21:00; Stop 08/11/18 at 19:13; Status DC Lidocaine (Xylocaine) 1 raquel PRN DAILY PRN TP PAIN; Start 08/04/18 at 14:15 Insulin Glargine (Lantus) 40 units QHS SQ Last administered on 08/14/18at 20:15; Start 08/04/18 at 21:00 Insulin Human Lispro (HumaLOG) 15 units TIDAC SQ Last administered on 08/14/18at 18:19; Start 08/05/18 at 07:30 Insulin Human Lispro (HumaLOG) 15 units 1X ONCE SQ Last administered on at 09:39; Start 08/05/18 at 07:30; Stop 08/05/18 at 09:28; Status DC Duloxetine HCl (Cymbalta) 60 mg DAILY PO Last administered on 08/15/18 09:03; Start 08/06/18 at 09:00 Haloperidol Lactate (Haldol) 5 mg DAILY IM Last administered on 08/13/18at 08:07 ; Start 08/09/18 at 15:00; Stop 08/14/18 at 17:45; Status DC Lorazepam (Ativan) 2 mg DAILY IM ; Start 08/09/18 at 15:00; Stop 08/09/18 at 15:00 ; Status DC Lorazepam (Ativan) 1 mg DAILY IM Last administered on 08/13/18at 08:11; Start 08/09/18 at 15:00; Stop 08/14/18 at 17:45; Status DC Divalproex Sodium (Depakote) 500 mg DAILY PO Last administered on 08/15/18at 09: 03; Start 08/12/18 at 09:00 Divalproex Sodium (Depakote Sprinkles) 750 mg HS PO Last administered on at 19:41; Start 08/11/18 at 21:00; Stop 08/12/18 at 00:48; Status DC Divalproex Sodium (Depakote) 750 mg QHS PO Last administered on 08/14/18at 20:13 ; Start 08/12/18 at 21:00 Triamcinolone Acetonide (Kenalog) 1 raquel PRN DAILY PRN TP RASH; Start 08/14/18 at 16:15 Active Scripts Active Reported Cozaar (Losartan Potassium) 25 Mg Tablet 25 Mg PO DAILY Tramadol Hcl (Tramadol HCl) 50 Mg Tablet 50 Mg PO HS PRN Hydralazine Hcl 50 Mg Tablet 50 Mg PO TID Zyprexa (Olanzapine) 2.5 Mg Tablet 2.5 Mg PO PRN Q2HR PRN Metoprolol Succinate ( Xl ) (Metoprolol Succinate) 100 Mg Tab.er.24h 100 Mg PO DAILY Analgesic [place] (Methyl Salicylate/Menthol) 28 Gm Oint...g. 1 Raquel TP PRN QID PRN Mag-Al Plus Xs Suspension (Mag Hydrox/Al Hydrox/Simeth) 30 Ml Oral.susp 15 Ml PO PRN AFTMEALHC PRN Humalog (Insulin Lispro) 100 Unit/1 Ml Cartridge 10 Unit SQ TIDAC Lantus Solostar (Insulin Glargine,Hum.rec.anlog) 100 Unit/1 Ml Insuln.pen 30 Unit SQ QHS Duloxetine Hcl 30 Mg Capsule.dr 30 Mg PO DAILY Depakote (Divalproex Sodium) 500 Mg Tablet.dr 500 Mg PO BID Seroquel (Quetiapine Fumarate) 25 Mg Tablet 25 Mg PO HS Triamcinolone Acetonide 15 Gm Cream..g. 1 Raquel TP PRN DAILY PRN Ondansetron Odt (Ondansetron) 4 Mg Tab.rapdis 4 Mg PO PRN Q6HRS PRN Furosemide 40 Mg Tablet 60 Mg PO BIDACBL Acetaminophen 325 Mg Tablet 650 Mg PO PRN Q6HRS PRN Tramadol Hcl (Tramadol HCl) 50 Mg Tablet 50 Mg PO PRN DAILY PRN [Lidocaine Oint 5%] 1 Raquel TP PRN DAILY Apply to heel prior to wound debridement. One Daily Plus Minerals (Multivitamin With Minerals) 1 Each Tablet 1 Tab PO DAILY Docusate Sodium 100 Mg Capsule 200 Mg PO DAILY Humalog (Insulin Lispro) 100 Unit/1 Ml Cartridge 0-7 Unit SQ TIDAC For BG <70 units, notify provider IF EATING IF NOT EATING B-150 0 units 0 units B-200 3 units 0 units B-250 4 units 2 units B-300 6 units 3 units B-350 7 units 4 units BG <60 or >351 notify provider Trazodone Hcl 150 Mg Tablet 1 Tab PO QHS Medroxyprogesterone Acetate 10 Mg Tablet 15 Mg PO DAILY Buspirone Hcl 10 Mg Tablet 1 Tab PO DAILY Klor-Con M20 (Potassium Chloride) 20 Meq Tab.er.prt 1 Tab PO BIDWMEALS Melatonin 3 Mg Tablet 1 Tab PO QHS Milk Of Magnesia (Magnesium Hydroxide) 2,400 Mg/10 Ml Oral.susp 2,400 Mg PO PRN DAILY PRN Thiamine Hcl 100 Mg Tablet 100 Mg PO DAILY Folic Acid 1 Mg Tablet 1 Tab PO DAILY Gabapentin (Gabapentin) 100 Mg Capsule 100 Mg PO TIDWMEALS I have reviewed the current psychotropics carefully including drug interactions. Risk benefit ratio favors no change other than as noted in my dictated progress note. Diagnosis: Problems: (1) Anxiety disorder (2) Impulse control disorder (3) Bipolar affective disorder, mixed (4) Dementia, vascular, with delusions (5) Dementia with behavioral disturbance LIZ DIANE MD Aug 15, 2018 09:48
--- NOTE | 2018-08-15 10:07 | PN ---
DATE: 08/13/2018 PSYCHIATRIC PROGRESS NOTE This late entry 08/13/2018 covers elements not covered in my initial note. SUBJECTIVE: I met with the patient in the evening. The patient slept 9 hours previous night. He has done little better during the day on 08/13/2018 "so far" per nursing report. He was in his room, pulling on the dressing on for the wounds on his feet and nursing staff redirected him. REVIEW OF SYSTEMS: Ambulation impaired. No CV, , pulmonary, eye, ENT system symptoms on review. MENTAL STATUS EXAM: The patient is oriented to himself and situation. Speech is coherent, has some latency. Abstraction fair, computation impaired, language function intact, attention span short. Mood and affect, he remains somewhat anxious, labile at times, but improved. LABORATORY DATA: Reviewed. IMPRESSION: Unchanged from initial note. PLAN: No change from initial note. MAN Newton DIANE MD DR: MATILDA/james JOB#: [id number] / [id number]
[2018-08-15] MEDS: ACETAMINOPHEN 325 MG TABLET PO PRN (14:10)
[2018-08-15] MEDS: traMADol 50 MG TABLET PO PRN (14:10)
[2018-08-15 16:43] VITALS: BP 149/98
[2018-08-15] MEDS: DIVALPROEX SODIUM 125 MG TABLET.DR. PO SCH (20:25)
[2018-08-15] MEDS: MELATONIN 3 MG TABLET PO SCH (20:26)
[2018-08-15] MEDS: QUEtiapine 25 MG TABLET. PO SCH (20:26)
[2018-08-15] MEDS: INSULIN GLARGINE 300 UNITS/3 ML INSULN.PEN. SQ SCH (20:30)
--- NOTE | 2018-08-15 22:54 | PDOC ---
Exam Note: Adriano Note: Please also refer to the separate dictated note~for this date of service dictated separately.~Patient seen individually. Discussed the patient with Nursing staff reviewed the chart.~Reviewed interim history and current functioning. Reviewed vital signs,~Labs/ Radiology~and current medications noted below. Continue current treatment with the changes noted in the dictated addendum note Assessment: Vital Signs: Vital Signs Date Time Temp Pulse Resp B/P (MAP) Pulse Ox O2 Delivery O2 Flow Rate FiO2 08/15/18 20:25 76 149/98 08/15/18 16:43 97.4 18 98 Room Air I&O Intake and Output 08/15/18 07:00 Intake Total 1200 ml Balance 1200 ml Intake Oral 1200 ml # Voids 1 Labs: Laboratory Tests Test 08/15/18 07:39 08/15/18 08:01 08/15/18 11:40 08/15/18 16:48 White Blood Count 5.7 x10^3/uL (4.0-11.0) Red Blood Count 4.09 x10^6/uL (4.30-5.70) L Hemoglobin 12.4 g/dL (13.0-17.5) L Hematocrit 37.0 % (39.0-53.0) L Mean Corpuscular Volume 91 fL (79-100) Mean Corpuscular Hemoglobin 30 pg (25-35) Mean Corpuscular Hemoglobin Concent 34 g/dL (31-37) Red Cell Distribution Width 15.0 % (11.5-14.5) H Platelet Count 168 x10^3/uL (140-400) Neutrophils (%) (Auto) 69 % (31-73) Lymphocytes (%) (Auto) 23 % (24-48) L Monocytes (%) (Auto) 6 % (0-9) Eosinophils (%) (Auto) 1 % (0-3) Basophils (%) (Auto) 0 % (0-3) Neutrophils # (Auto) 3.9 x10^3uL (1.8-7.7) Lymphocytes # (Auto) 1.3 x10^3/uL (1.0-4.8) Monocytes # (Auto) 0.4 x10^3/uL (0.0-1.1) Eosinophils # (Auto) 0.1 x10^3/uL (0.0-0.7) Basophils # (Auto) 0.0 x10^3/uL (0.0-0.2) Sodium Level 144 mmol/L (136-145) Potassium Level 4.0 mmol/L (3.5-5.1) Chloride Level 108 mmol/L (98-107) H Carbon Dioxide Level 29 mmol/L (21-32) Anion Gap 7 (6-14) Blood Urea Nitrogen 23 mg/dL (8-26) Creatinine 1.1 mg/dL (0.7-1.3) Estimated GFR (Cockcroft-Gault) 65.4 BUN/Creatinine Ratio 21 (6-20) H Glucose Level 58 mg/dL (70-99) L Calcium Level 8.4 mg/dL (8.5-10.1) L Total Bilirubin 0.3 mg/dL (0.2-1.0) Aspartate Amino Transferase (AST) 8 U/L (15-37) L Alanine Aminotransferase (ALT) 13 U/L (16-63) L Alkaline Phosphatase 52 U/L (46-116) Total Protein 7.0 g/dL (6.4-8.2) Albumin 2.8 g/dL (3.4-5.0) L Albumin/Globulin Ratio 0.7 (1.0-1.7) L Valproic Acid Level 50 mcg/mL (50-100) Valproic Acid Last Dose Date 08/14/18 Valproic Acid Last Dose Time 2100 Glucose (Fingerstick) 70 mg/dL (70-99) 239 mg/dL (70-99) H 166 mg/dL (70-99) H Test 08/15/18 19:18 Glucose (Fingerstick) 158 mg/dL (70-99) H Current Medications: Meds: Current Medications Acetaminophen (Tylenol) 650 mg PRN Q6HRS PRN PO PAIN / TEMP Last administered on 08/15/18at 14:10; Start 08/03/18 at 21:45 Gabapentin (Neurontin) 100 mg TIDWMEALS PO Last administered on 08/15/18at 17:25 ; Start 08/04/18 at 08:00 Insulin Glargine (Lantus) 30 units QHS SQ ; Start 08/04/18 at 21:00; Stop at 21:00; Status DC Losartan Potassium (Cozaar) 25 mg DAILY PO Last administered on 08/15/18 09:03 ; Start 08/04/18 at 09:00 Al Hydroxide/Mg Hydroxide (Mylanta Plus Xs) 15 ml PRN AFTMEALHC PRN PO DYSPEPSIA; Start 08/03/18 at 21:45 Multi-Ingredient Ointment (Analgesic [place]) 1 raquel PRN QID PRN TP MUSCLE PAIN; Start 08/03/18 at 21:45 Potassium Chloride (Klor-Con) 20 meq BIDWMEALS PO Last administered on 17:25; Start 08/04/18 at 08:00 Tramadol HCl (Ultram) 50 mg PRN QHS PRN PO PAIN Last administered on 08/03/18 22:20; Start 08/03/18 at 22:15; Stop 08/04/18 at 01:08; Status DC Tramadol HCl (Ultram) 50 mg PRN DAILY PRN PO PAIN; Start 08/03/18 at 21:45; Stop 08/04/18 at 01:08; Status DC Buspirone HCl (Buspar) 10 mg DAILY PO ; Start 08/04/18 at 09:00; Stop 08/04/18 at 09:00; Status DC Divalproex Sodium (Depakote Er) 500 mg BID PO Last administered on 08/04/18 08 :27; Start 08/04/18 at 09:00; Stop 08/04/18 at 13:30; Status DC Docusate Sodium (Colace) 200 mg DAILY PO Last administered on 08/15/18 09:02; Start 08/04/18 at 09:00 Duloxetine HCl (Cymbalta) 30 mg DAILY PO Last administered on 08/05/18 08:33; Start 08/04/18 at 09:00; Stop 08/05/18 at 11:09; Status DC Folic Acid (Folic Acid) 1 mg DAILY PO Last administered on 08/15/18 09:03; Start 08/04/18 at 09:00 Furosemide (Lasix) 40 mg BIDACBL PO Last administered on 08/15/18 08:58; Start 08/04/18 at 07:30 Hydralazine HCl (Apresoline) 50 mg TID PO Last administered on 08/15/18 20:25; Start 08/04/18 at 09:00 Insulin Human Lispro (HumaLOG) TID ac TIDAC SQ ; Start 08/04/18 at 07:30; Stop 08/04/18 at 07:30; Status DC Insulin Human Lispro (HumaLOG) 10 units TIDAC SQ ; Start 08/04/18 at 07:30; Stop 08/04/18 at 07:30; Status DC Magnesium Hydroxide (Milk Of Magnesia) 2,400 mg PRN DAILY PRN PO CONSTIPATION Last administered on 08/12/18 12:56; Start 08/03/18 at 22:00 Medroxyprogesterone Acetate (Provera) 15 mg DAILY PO Last administered on 09:08; Start 08/04/18 at 09:00 Melatonin 3 mg QHS PO Last administered on 08/15/18 20:26; Start 08/04/18 at 21 :00 Metoprolol Succinate (Toprol Xl) 100 mg DAILY PO Last administered on 08/15/18 09:10; Start 08/04/18 at 09:00 Multivitamins/ Calcium (Thera-M Plus) 1 tab DAILY PO Last administered on 09:08; Start 08/04/18 at 09:00 Olanzapine (ZyPREXA) 2.5 mg PRN Q2HR PRN PO AGITATION Last administered on 14:53; Start 08/03/18 at 22:00 Ondansetron HCl (Zofran Odt) 4 mg PRN Q6HRS PRN PO NAUSEA/VOMITING; Start 08/03 at 22:00 Quetiapine Fumarate (SEROquel) 25 mg QHS PO Last administered on 08/15/18 20:26 ; Start 08/04/18 at 21:00 Thiamine HCl (Vitamin B-1) 100 mg DAILY PO Last administered on 08/15/18 09:10 ; Start 08/04/18 at 09:00 Trazodone HCl (Desyrel) 150 mg PRN QHS PRN PO INSOMNIA Last administered on 02:27; Start 08/03/18 at 22:15 Triamcinolone Acetonide (Kenalog) 1 raquel PRN DAILY PRN TP RASH; Start 08/03/18 at 22:15; Stop 08/14/18 at 16:15; Status DC Lidocaine (Xylocaine) 1 raquel PRN DAILY PRN TP PAIN; Start 08/03/18 at 22:15; Stop 08/04/18 at 14:03; Status DC Insulin Glargine (Lantus) 30 units QHS SQ ; Start 08/04/18 at 21:00; Stop at 21:00; Status DC Insulin Human Lispro (HumaLOG) 0-7 UNITS TIDWMEALS PRN SQ ELEVATED BS; Start at 00:15 Dextrose 12.5 gm PRN Q15MIN PRN IV SEE COMMENTS; Start 08/04/18 at 00:15 Glucose (Insta-Glucose) 15 gm PRN Q15MIN PRN PO LOW BLOOD SUGAR; Start at 00:15 Insulin Human Lispro (HumaLOG) 10 units TIDAC SQ Last administered on at 12:22; Start 08/04/18 at 07:30; Stop 08/04/18 at 17:33; Status DC Buspirone HCl (Buspar) 10 mg PRN DAILY PRN PO ANXIETY / AGITATION; Start at 09:00 Tramadol HCl (Ultram) 50 mg PRN BID PRN PO PAIN Last administered on 08/15/18at 14:10; Start 08/04/18 at 01:15 Lactobacillus Rhamnosus (Culturelle) 1 cap BID PO Last administered on at 09:03; Start 08/04/18 at 09:00; Stop 08/15/18 at 16:40; Status DC Nystatin (Mycostatin) 1 raquel BID TP Last administered on 08/15/18at 20:32; Start 08/04/18 at 09:00 Cefpodoxime Proxetil (Vantin) 200 mg BID PO ; Start 08/04/18 at 09:00; Stop at 09:00; Status DC Doxycycline Hyclate (Vibra-Tab) 100 mg [id number] PO Last administered on 08/15/18at 06:00; Start 08/04/18 at 06:00; Stop 08/15/18 at 16:40; Status DC Cefdinir (Omnicef) 300 mg BID PO Last administered on 4/7/19at 09:04; Start at 09:00; Stop 08/15/18 at 16:40; Status DC Divalproex Sodium (Depakote) 500 mg BID PO Last administered on 08/11/18 08:07 ; Start 08/04/18 at 21:00; Stop 08/11/18 at 19:13; Status DC Lidocaine (Xylocaine) 1 raquel PRN DAILY PRN TP PAIN; Start 08/04/18 at 14:15 Insulin Glargine (Lantus) 40 units QHS SQ Last administered on 08/15/18 20:30; Start 08/04/18 at 21:00 Insulin Human Lispro (HumaLOG) 15 units TIDAC SQ Last administered on 08/15/18 17:25; Start 08/05/18 at 07:30 Insulin Human Lispro (HumaLOG) 15 units 1X ONCE SQ Last administered on 09:39; Start 08/05/18 at 07:30; Stop 08/05/18 at 09:28; Status DC Duloxetine HCl (Cymbalta) 60 mg DAILY PO Last administered on 08/15/18 09:03; Start 08/06/18 at 09:00 Haloperidol Lactate (Haldol) 5 mg DAILY IM Last administered on 08/13/18 08:07 ; Start 08/09/18 at 15:00; Stop 08/14/18 at 17:45; Status DC Lorazepam (Ativan) 2 mg DAILY IM ; Start 08/09/18 at 15:00; Stop 08/09/18 at 15:00 ; Status DC Lorazepam (Ativan) 1 mg DAILY IM Last administered on 08/13/18 08:11; Start 08/09/18 at 15:00; Stop 08/14/18 at 17:45; Status DC Divalproex Sodium (Depakote) 500 mg DAILY PO Last administered on 08/15/18 09: 03; Start 08/12/18 at 09:00 Divalproex Sodium (Depakote Sprinkles) 750 mg HS PO Last administered on 19:41; Start 08/11/18 at 21:00; Stop 08/12/18 at 00:48; Status DC Divalproex Sodium (Depakote) 750 mg QHS PO Last administered on 08/15/18at 20:25 ; Start 08/12/18 at 21:00 Triamcinolone Acetonide (Kenalog) 1 raquel PRN DAILY PRN TP RASH; Start 08/14/18 at 16:15 Active Scripts Active Reported Cozaar (Losartan Potassium) 25 Mg Tablet 25 Mg PO DAILY Tramadol Hcl (Tramadol HCl) 50 Mg Tablet 50 Mg PO HS PRN Hydralazine Hcl 50 Mg Tablet 50 Mg PO TID Zyprexa (Olanzapine) 2.5 Mg Tablet 2.5 Mg PO PRN Q2HR PRN Metoprolol Succinate ( Xl ) (Metoprolol Succinate) 100 Mg Tab.er.24h 100 Mg PO DAILY Analgesic Bland (Methyl Salicylate/Menthol) 28 Gm Oint...g. 1 Raquel TP PRN QID PRN Mag-Al Plus Xs Suspension (Mag Hydrox/Al Hydrox/Simeth) 30 Ml Oral.susp 15 Ml PO PRN AFTMEALHC PRN Humalog (Insulin Lispro) 100 Unit/1 Ml Cartridge 10 Unit SQ TIDAC Lantus Solostar (Insulin Glargine,Hum.rec.anlog) 100 Unit/1 Ml Insuln.pen 30 Unit SQ QHS Duloxetine Hcl 30 Mg Capsule.dr 30 Mg PO DAILY Depakote (Divalproex Sodium) 500 Mg Tablet.dr 500 Mg PO BID Seroquel (Quetiapine Fumarate) 25 Mg Tablet 25 Mg PO HS Triamcinolone Acetonide 15 Gm Cream..g. 1 Raquel TP PRN DAILY PRN Ondansetron Odt (Ondansetron) 4 Mg Tab.rapdis 4 Mg PO PRN Q6HRS PRN Furosemide 40 Mg Tablet 60 Mg PO BIDACBL Acetaminophen 325 Mg Tablet 650 Mg PO PRN Q6HRS PRN Tramadol Hcl (Tramadol HCl) 50 Mg Tablet 50 Mg PO PRN DAILY PRN [Lidocaine Oint 5%] 1 Raquel TP PRN DAILY Apply to heel prior to wound debridement. One Daily Plus Minerals (Multivitamin With Minerals) 1 Each Tablet 1 Tab PO DAILY Docusate Sodium 100 Mg Capsule 200 Mg PO DAILY Humalog (Insulin Lispro) 100 Unit/1 Ml Cartridge 0-7 Unit SQ TIDAC For BG <70 units, notify provider IF EATING IF NOT EATING B-150 0 units 0 units B-200 3 units 0 units B-250 4 units 2 units B-300 6 units 3 units B-350 7 units 4 units BG <60 or >351 notify provider Trazodone Hcl 150 Mg Tablet 1 Tab PO QHS Medroxyprogesterone Acetate 10 Mg Tablet 15 Mg PO DAILY Buspirone Hcl 10 Mg Tablet 1 Tab PO DAILY Klor-Con M20 (Potassium Chloride) 20 Meq Tab.er.prt 1 Tab PO BIDWMEALS Melatonin 3 Mg Tablet 1 Tab PO QHS Milk Of Magnesia (Magnesium Hydroxide) 2,400 Mg/10 Ml Oral.susp 2,400 Mg PO PRN DAILY PRN Thiamine Hcl 100 Mg Tablet 100 Mg PO DAILY Folic Acid 1 Mg Tablet 1 Tab PO DAILY Gabapentin (Gabapentin) 100 Mg Capsule 100 Mg PO TIDWMEALS I have reviewed the current psychotropics carefully including drug interactions. Risk benefit ratio favors no change other than as noted in my dictated progress note. Diagnosis: Problems: (1) Anxiety disorder (2) Impulse control disorder (3) Bipolar affective disorder, mixed (4) Dementia, vascular, with delusions (5) Dementia with behavioral disturbance LIZ DIANE MD Aug 15, 2018 22:54
[2018-08-16 05:36] VITALS: BP 171/68
[2018-08-16] MEDS: NYSTATIN 100,000 UNIT/GM TOPICAL CREAM 15GM TUBE. TP SCH ×2 (09:00→21:00)
[2018-08-16] MEDS: FUROSEMIDE 40 MG TABLET PO SCH ×2 (09:12→11:43)
[2018-08-16] MEDS: LOSARTAN 25 MG TABLET. PO SCH (09:12)
[2018-08-16] MEDS: DOCUSATE SODIUM 100 MG CAPSULE PO SCH (09:12)
[2018-08-16] MEDS: THIAMINE 100 MG TABLET. PO SCH (09:13)
[2018-08-16] MEDS: DIVALPROEX SODIUM 250 MG TABLET.DR. PO SCH (09:13)
[2018-08-16] MEDS: DULoxetine HCL 60 MG CAPSULE.DR PO SCH (09:13)
[2018-08-16] MEDS: FOLIC ACID 1 MG TABLET PO SCH (09:14)
[2018-08-16] MEDS: POTASSIUM CHLORIDE 20 MEQ TABLET.ER. PO SCH ×2 (09:14→17:11)
[2018-08-16] MEDS: METOPROLOL SUCC 24HR ER 50 MG TAB.ER.24H. PO SCH (09:14)
[2018-08-16] MEDS: medroxyPROGESTERone 5 MG TABLET PO SCH (09:14)
[2018-08-16] MEDS: MULTIVITAMIN with MINERAL TABLET. PO SCH (09:14)
[2018-08-16] MEDS: GABAPENTIN 100 MG CAPSULE. PO SCH ×3 (09:16→17:11)
[2018-08-16] MEDS: INSULIN LISPRO 300 UNITS/3 ML INSULN.PEN. SQ SCH ×3 (09:17→16:30)
[2018-08-16 16:29] VITALS: BP 137/63
[2018-08-16] MEDS: MELATONIN 3 MG TABLET PO SCH (19:38)
[2018-08-16] MEDS: DIVALPROEX SODIUM 125 MG TABLET.DR. PO SCH (19:38)
[2018-08-16] MEDS: QUEtiapine 25 MG TABLET. PO SCH (19:38)
[2018-08-16] MEDS: INSULIN GLARGINE 300 UNITS/3 ML INSULN.PEN. SQ SCH (19:44)
--- NOTE | 2018-08-16 22:42 | PDOC ---
Exam Note: Adriano Note: Please also refer to the separate dictated note~for this date of service dictated separately.~Patient seen individually. Discussed the patient with Nursing staff reviewed the chart.~Reviewed interim history and current functioning. Reviewed vital signs,~Labs/ Radiology~and current medications noted below. Continue current treatment with the changes noted in the dictated addendum note Assessment: Vital Signs: Vital Signs Date Time Temp Pulse Resp B/P (MAP) Pulse Ox O2 Delivery O2 Flow Rate FiO2 08/16/18 19:38 64 137/63 08/16/18 16:29 98.0 18 100 08/15/18 16:43 Room Air I&O Intake and Output 08/16/18 06:59 Intake Total 1080 ml Balance 1080 ml Intake Oral 1080 ml # Voids 1 Labs: Laboratory Tests Test 08/16/18 05:33 08/16/18 07:37 08/16/18 11:14 08/16/18 16:49 Glucose (Fingerstick) 56 mg/dL (70-99) L 180 mg/dL (70-99) H 151 mg/dL (70-99) H 106 mg/dL (70-99) H Test 08/16/18 19:28 Glucose (Fingerstick) 259 mg/dL (70-99) H Current Medications: Meds: Current Medications Acetaminophen (Tylenol) 650 mg PRN Q6HRS PRN PO PAIN / TEMP Last administered on 08/15/18at 14:10; Start 08/03/18 at 21:45 Gabapentin (Neurontin) 100 mg TIDWMEALS PO Last administered on 08/16/18at 17:11 ; Start 08/04/18 at 08:00 Insulin Glargine (Lantus) 30 units QHS SQ ; Start 08/04/18 at 21:00; Stop at 21:00; Status DC Losartan Potassium (Cozaar) 25 mg DAILY PO Last administered on 08/16/18at 09:12 ; Start 08/04/18 at 09:00 Al Hydroxide/Mg Hydroxide (Mylanta Plus Xs) 15 ml PRN AFTMEALHC PRN PO DYSPEPSIA; Start 08/03/18 at 21:45 Multi-Ingredient Ointment (Analgesic [place]) 1 raquel PRN QID PRN TP MUSCLE PAIN; Start 08/03/18 at 21:45 Potassium Chloride (Klor-Con) 20 meq BIDWMEALS PO Last administered on 17:11; Start 08/04/18 at 08:00 Tramadol HCl (Ultram) 50 mg PRN QHS PRN PO PAIN Last administered on 08/03/18at 22:20; Start 08/03/18 at 22:15; Stop 08/04/18 at 01:08; Status DC Tramadol HCl (Ultram) 50 mg PRN DAILY PRN PO PAIN; Start 08/03/18 at 21:45; Stop 08/04/18 at 01:08; Status DC Buspirone HCl (Buspar) 10 mg DAILY PO ; Start 08/04/18 at 09:00; Stop 08/04/18 at 09:00; Status DC Divalproex Sodium (Depakote Er) 500 mg BID PO Last administered on 08/04/18at 08 :27; Start 08/04/18 at 09:00; Stop 08/04/18 at 13:30; Status DC Docusate Sodium (Colace) 200 mg DAILY PO Last administered on 08/16/18 09:12; Start 08/04/18 at 09:00 Duloxetine HCl (Cymbalta) 30 mg DAILY PO Last administered on 08/05/18at 08:33; Start 08/04/18 at 09:00; Stop 08/05/18 at 11:09; Status DC Folic Acid (Folic Acid) 1 mg DAILY PO Last administered on 08/16/18 09:14; Start 08/04/18 at 09:00 Furosemide (Lasix) 40 mg BIDACBL PO Last administered on 08/16/18 11:43; Start 08/04/18 at 07:30 Hydralazine HCl (Apresoline) 50 mg TID PO Last administered on 08/16/18 19:38; Start 08/04/18 at 09:00 Insulin Human Lispro (HumaLOG) TID ac TIDAC SQ ; Start 08/04/18 at 07:30; Stop 08/04/18 at 07:30; Status DC Insulin Human Lispro (HumaLOG) 10 units TIDAC SQ ; Start 08/04/18 at 07:30; Stop 08/04/18 at 07:30; Status DC Magnesium Hydroxide (Milk Of Magnesia) 2,400 mg PRN DAILY PRN PO CONSTIPATION Last administered on 08/12/18 12:56; Start 08/03/18 at 22:00 Medroxyprogesterone Acetate (Provera) 15 mg DAILY PO Last administered on 09:14; Start 08/04/18 at 09:00; Stop 08/16/18 at 17:09; Status DC Melatonin 3 mg QHS PO Last administered on 08/16/18 19:38; Start 08/04/18 at 21 :00 Metoprolol Succinate (Toprol Xl) 100 mg DAILY PO Last administered on 08/16/18 09:14; Start 08/04/18 at 09:00 Multivitamins/ Calcium (Thera-M Plus) 1 tab DAILY PO Last administered on 09:14; Start 08/04/18 at 09:00 Olanzapine (ZyPREXA) 2.5 mg PRN Q2HR PRN PO AGITATION Last administered on 14:53; Start 08/03/18 at 22:00 Ondansetron HCl (Zofran Odt) 4 mg PRN Q6HRS PRN PO NAUSEA/VOMITING; Start 08/03 at 22:00 Quetiapine Fumarate (SEROquel) 25 mg QHS PO Last administered on 08/16/18 19:38 ; Start 08/04/18 at 21:00 Thiamine HCl (Vitamin B-1) 100 mg DAILY PO Last administered on 08/16/18 09:13 ; Start 08/04/18 at 09:00 Trazodone HCl (Desyrel) 150 mg PRN QHS PRN PO INSOMNIA Last administered on 02:27; Start 08/03/18 at 22:15 Triamcinolone Acetonide (Kenalog) 1 raquel PRN DAILY PRN TP RASH; Start 08/03/18 at 22:15; Stop 08/14/18 at 16:15; Status DC Lidocaine (Xylocaine) 1 raquel PRN DAILY PRN TP PAIN; Start 08/03/18 at 22:15; Stop 08/04/18 at 14:03; Status DC Insulin Glargine (Lantus) 30 units QHS SQ ; Start 08/04/18 at 21:00; Stop at 21:00; Status DC Insulin Human Lispro (HumaLOG) 0-7 UNITS TIDWMEALS PRN SQ ELEVATED BS; Start at 00:15 Dextrose 12.5 gm PRN Q15MIN PRN IV SEE COMMENTS; Start 08/04/18 at 00:15 Glucose (Insta-Glucose) 15 gm PRN Q15MIN PRN PO LOW BLOOD SUGAR; Start at 00:15 Insulin Human Lispro (HumaLOG) 10 units TIDAC SQ Last administered on at 12:22; Start 08/04/18 at 07:30; Stop 08/04/18 at 17:33; Status DC Buspirone HCl (Buspar) 10 mg PRN DAILY PRN PO ANXIETY / AGITATION; Start at 09:00 Tramadol HCl (Ultram) 50 mg PRN BID PRN PO PAIN Last administered on 08/15/18at 14:10; Start 08/04/18 at 01:15 Lactobacillus Rhamnosus (Culturelle) 1 cap BID PO Last administered on at 09:03; Start 08/04/18 at 09:00; Stop 08/15/18 at 16:40; Status DC Nystatin (Mycostatin) 1 raquel BID TP Last administered on 08/15/18at 20:32; Start 08/04/18 at 09:00 Cefpodoxime Proxetil (Vantin) 200 mg BID PO ; Start 08/04/18 at 09:00; Stop at 09:00; Status DC Doxycycline Hyclate (Vibra-Tab) 100 mg [id number] PO Last administered on 08/15/18at 06:00; Start 08/04/18 at 06:00; Stop 08/15/18 at 16:40; Status DC Cefdinir (Omnicef) 300 mg BID PO Last administered on 08/15/18at 09:04; Start at 09:00; Stop 08/15/18 at 16:40; Status DC Divalproex Sodium (Depakote) 500 mg BID PO Last administered on 08/11/18at 08:07 ; Start 08/04/18 at 21:00; Stop 08/11/18 at 19:13; Status DC Lidocaine (Xylocaine) 1 raquel PRN DAILY PRN TP PAIN; Start 08/04/18 at 14:15 Insulin Glargine (Lantus) 40 units QHS SQ Last administered on 08/16/18 19:44; Start 08/04/18 at 21:00 Insulin Human Lispro (HumaLOG) 15 units TIDAC SQ Last administered on 08/16/18 11:43; Start 08/05/18 at 07:30 Insulin Human Lispro (HumaLOG) 15 units 1X ONCE SQ Last administered on 09:39; Start 08/05/18 at 07:30; Stop 08/05/18 at 09:28; Status DC Duloxetine HCl (Cymbalta) 60 mg DAILY PO Last administered on 08/16/18 09:13; Start 08/06/18 at 09:00 Haloperidol Lactate (Haldol) 5 mg DAILY IM Last administered on 08/13/18 08:07 ; Start 08/09/18 at 15:00; Stop 08/14/18 at 17:45; Status DC Lorazepam (Ativan) 2 mg DAILY IM ; Start 08/09/18 at 15:00; Stop 08/09/18 at 15:00 ; Status DC Lorazepam (Ativan) 1 mg DAILY IM Last administered on 08/13/18 08:11; Start 08/09/18 at 15:00; Stop 08/14/18 at 17:45; Status DC Divalproex Sodium (Depakote) 500 mg DAILY PO Last administered on 08/16/18 09: 13; Start 08/12/18 at 09:00 Divalproex Sodium (Depakote Sprinkles) 750 mg HS PO Last administered on 19:41; Start 08/11/18 at 21:00; Stop 08/12/18 at 00:48; Status DC Divalproex Sodium (Depakote) 750 mg QHS PO Last administered on 08/16/18 19:38 ; Start 08/12/18 at 21:00 Triamcinolone Acetonide (Kenalog) 1 raquel PRN DAILY PRN TP RASH; Start 08/14/18 at 16:15 Medroxyprogesterone Acetate (Provera) 17.5 mg DAILY PO ; Start 08/17/18 at 09:00 Active Scripts Active Reported Cozaar (Losartan Potassium) 25 Mg Tablet 25 Mg PO DAILY Tramadol Hcl (Tramadol HCl) 50 Mg Tablet 50 Mg PO HS PRN Hydralazine Hcl 50 Mg Tablet 50 Mg PO TID Zyprexa (Olanzapine) 2.5 Mg Tablet 2.5 Mg PO PRN Q2HR PRN Metoprolol Succinate ( Xl ) (Metoprolol Succinate) 100 Mg Tab.er.24h 100 Mg PO DAILY Analgesic [place] (Methyl Salicylate/Menthol) 28 Gm Oint...g. 1 Raquel TP PRN QID PRN Mag-Al Plus Xs Suspension (Mag Hydrox/Al Hydrox/Simeth) 30 Ml Oral.susp 15 Ml PO PRN AFTMEALHC PRN Humalog (Insulin Lispro) 100 Unit/1 Ml Cartridge 10 Unit SQ TIDAC Lantus Solostar (Insulin Glargine,Hum.rec.anlog) 100 Unit/1 Ml Insuln.pen 30 Unit SQ QHS Duloxetine Hcl 30 Mg Capsule.dr 30 Mg PO DAILY Depakote (Divalproex Sodium) 500 Mg Tablet.dr 500 Mg PO BID Seroquel (Quetiapine Fumarate) 25 Mg Tablet 25 Mg PO HS Triamcinolone Acetonide 15 Gm Cream..g. 1 Raquel TP PRN DAILY PRN Ondansetron Odt (Ondansetron) 4 Mg Tab.rapdis 4 Mg PO PRN Q6HRS PRN Furosemide 40 Mg Tablet 60 Mg PO BIDACBL Acetaminophen 325 Mg Tablet 650 Mg PO PRN Q6HRS PRN Tramadol Hcl (Tramadol HCl) 50 Mg Tablet 50 Mg PO PRN DAILY PRN [Lidocaine Oint 5%] 1 Raquel TP PRN DAILY Apply to heel prior to wound debridement. One Daily Plus Minerals (Multivitamin With Minerals) 1 Each Tablet 1 Tab PO DAILY Docusate Sodium 100 Mg Capsule 200 Mg PO DAILY Humalog (Insulin Lispro) 100 Unit/1 Ml Cartridge 0-7 Unit SQ TIDAC For BG <70 units, notify provider IF EATING IF NOT EATING B-150 0 units 0 units B-200 3 units 0 units B-250 4 units 2 units B-300 6 units 3 units B-350 7 units 4 units BG <60 or >351 notify provider Trazodone Hcl 150 Mg Tablet 1 Tab PO QHS Medroxyprogesterone Acetate 10 Mg Tablet 15 Mg PO DAILY Buspirone Hcl 10 Mg Tablet 1 Tab PO DAILY Klor-Con M20 (Potassium Chloride) 20 Meq Tab.er.prt 1 Tab PO BIDWMEALS Melatonin 3 Mg Tablet 1 Tab PO QHS Milk Of Magnesia (Magnesium Hydroxide) 2,400 Mg/10 Ml Oral.susp 2,400 Mg PO PRN DAILY PRN Thiamine Hcl 100 Mg Tablet 100 Mg PO DAILY Folic Acid 1 Mg Tablet 1 Tab PO DAILY Gabapentin (Gabapentin) 100 Mg Capsule 100 Mg PO TIDWMEALS I have reviewed the current psychotropics carefully including drug interactions. Risk benefit ratio favors no change other than as noted in my dictated progress note. Diagnosis: Problems: (1) Anxiety disorder (2) Impulse control disorder (3) Bipolar affective disorder, mixed (4) Dementia, vascular, with delusions (5) Dementia with behavioral disturbance LIZ DIANE MD Aug 16, 2018 22:42
[2018-08-17] MEDS: traMADol 50 MG TABLET PO PRN ×2 (05:40→17:40)
[2018-08-17] MEDS: ACETAMINOPHEN 325 MG TABLET PO PRN (05:40)
[2018-08-17 06:05] VITALS: BP 112/77
[2018-08-17] MEDS: MULTIVITAMIN with MINERAL TABLET. PO SCH (07:33)
[2018-08-17] MEDS: GABAPENTIN 100 MG CAPSULE. PO SCH ×3 (07:33→16:42)
[2018-08-17] MEDS: FOLIC ACID 1 MG TABLET PO SCH (07:33)
[2018-08-17] MEDS: DULoxetine HCL 60 MG CAPSULE.DR PO SCH (07:34)
[2018-08-17] MEDS: POTASSIUM CHLORIDE 20 MEQ TABLET.ER. PO SCH ×2 (07:34→16:42)
[2018-08-17] MEDS: DIVALPROEX SODIUM 250 MG TABLET.DR. PO SCH (07:34)
[2018-08-17] MEDS: FUROSEMIDE 40 MG TABLET PO SCH ×2 (07:34→12:05)
[2018-08-17] MEDS: DOCUSATE SODIUM 100 MG CAPSULE PO SCH (07:34)
[2018-08-17] MEDS: METOPROLOL SUCC 24HR ER 50 MG TAB.ER.24H. PO SCH (07:35)
[2018-08-17] MEDS: LOSARTAN 25 MG TABLET. PO SCH (07:36)
[2018-08-17] MEDS: INSULIN LISPRO 300 UNITS/3 ML INSULN.PEN. SQ SCH ×3 (08:13→16:30)
[2018-08-17] MEDS: NYSTATIN 100,000 UNIT/GM TOPICAL CREAM 15GM TUBE. TP SCH ×2 (08:14→19:45)
[2018-08-17] MEDS: medroxyPROGESTERone 5 MG TABLET PO SCH (08:14)
[2018-08-17] MEDS: THIAMINE 100 MG TABLET. PO SCH (08:14)
--- NOTE | 2018-08-17 09:22 | PN ---
DATE: 08/14/2018 PSYCHIATRIC PROGRESS NOTE This late entry 08/14/2018 covers elements not covered in my initial note. SUBJECTIVE: I met with the patient in the evening in his room at some length. Overall, the patient has been somewhat drowsy. He did get little irritable at times, but was redirectable. We will stop the IM Haldol, Ativan scheduled. REVIEW OF SYSTEMS: Ambulation impaired. No CV, , pulmonary, eye system symptoms on review. MENTAL STATUS EXAM: The patient is oriented to himself and situation. Speech has some latency, coherent, abstraction fair, computation impaired, language function intact. Attention span short. 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 No suicidal or homicidal ideation. Attention span short. Language function intact. Mood and affect showing improvement. IMPRESSION: Unchanged from initial note. PLAN: No change from initial note. MAN Newton DIANE MD DR: MATILDA/james JOB#: [id number] / [id number]
--- NOTE | 2018-08-17 09:23 | PN ---
DATE: 08/15/2018 PSYCHIATRIC PROGRESS NOTE This late entry 08/15/2018, covers elements not covered in my initial note. SUBJECTIVE: I met with the patient in the evening. The patient slept 8-3/4 hours previous night. He has been calmer, more pleasant, cooperative with cares, drowsy at times, unstable in his gait, placed in a wheelchair to avoid falls. Dressing changed on 08/14/2018. REVIEW OF SYSTEMS: No CV, , pulmonary, eye system symptoms on review. I met with him in his room. MENTAL STATUS EXAM: Oriented to himself and situation. Speech is coherent, has some latency. Abstraction fair, computation impaired, language function intact, attention span short. Mood and affect remain somewhat withdrawn at times. LABORATORY DATA: Reviewed. IMPRESSION: Unchanged from initial note. PLAN: No change from initial note. MAN Newton DIANE MD DR: MATILDA/james JOB#: [id number] / [id number]
[2018-08-17 16:13] VITALS: BP 143/77
[2018-08-17] MEDS: MELATONIN 3 MG TABLET PO SCH (19:35)
[2018-08-17] MEDS: DIVALPROEX SODIUM 125 MG TABLET.DR. PO SCH (19:36)
[2018-08-17] MEDS: QUEtiapine 25 MG TABLET. PO SCH (19:36)
[2018-08-17] MEDS: INSULIN GLARGINE 300 UNITS/3 ML INSULN.PEN. SQ SCH (19:44)
--- NOTE | 2018-08-17 20:44 | PN ---
DATE: 08/16/2018 PSYCHIATRIC PROGRESS NOTE This late entry 08/16/2018 covers elements not covered in my initial note. SUBJECTIVE: I met with the patient in the evening in his room at length. He slept 6-1/2 hours previous night. He was inappropriate, pulling his pants down and letting them fall down and telling nursing staff, "I can give you a show." He did redirect. REVIEW OF SYSTEMS: Ambulation impaired. No CV, , pulmonary, eye system symptoms on review. MENTAL STATUS EXAM: Oriented to himself and situation. Speech is coherent, has some latency. Abstraction fair, computation impaired, language function intact, attention span short. Mood and affect somewhat withdrawn. LABORATORY DATA: Reviewed. IMPRESSION: Unchanged from initial note. PLAN: Increase Provera from 15 mg a day to 17.5 mg a day for his sexually inappropriate behaviors. Rest unchanged for now. LIZ DIANE MD DR: MATILDA/james JOB#: [id number] / [id number]
--- NOTE | 2018-08-17 22:33 | PDOC ---
Exam Note: Adriano Note: Please also refer to the separate dictated note~for this date of service dictated separately.~Patient seen individually. Discussed the patient with Nursing staff reviewed the chart.~Reviewed interim history and current functioning. Reviewed vital signs,~Labs/ Radiology~and current medications noted below. Continue current treatment with the changes noted in the dictated addendum note Assessment: Vital Signs: Vital Signs Date Time Temp Pulse Resp B/P (MAP) Pulse Ox O2 Delivery O2 Flow Rate FiO2 08/17/18 19:42 62 143/77 08/17/18 17:40 18 08/17/18 16:13 98.2 99 08/17/18 06:40 Room Air I&O Intake and Output 08/17/18 06:59 Intake Total 800 ml Balance 800 ml Intake Oral 800 ml Labs: Laboratory Tests Test 08/17/18 07:28 08/17/18 11:42 08/17/18 16:50 08/17/18 19:25 Glucose (Fingerstick) 167 mg/dL (70-99) H 204 mg/dL (70-99) H 104 mg/dL (70-99) H 167 mg/dL (70-99) H Current Medications: Meds: Current Medications Acetaminophen (Tylenol) 650 mg PRN Q6HRS PRN PO PAIN / TEMP Last administered on 08/17/18at 05:40; Start 08/03/18 at 21:45 Gabapentin (Neurontin) 100 mg TIDWMEALS PO Last administered on 08/17/18at 16:42 ; Start 08/04/18 at 08:00 Insulin Glargine (Lantus) 30 units QHS SQ ; Start 08/04/18 at 21:00; Stop at 21:00; Status DC Losartan Potassium (Cozaar) 25 mg DAILY PO Last administered on 08/17/18at 07:36 ; Start 08/04/18 at 09:00 Al Hydroxide/Mg Hydroxide (Mylanta Plus Xs) 15 ml PRN AFTMEALHC PRN PO DYSPEPSIA; Start 08/03/18 at 21:45 Multi-Ingredient Ointment (Analgesic [place]) 1 raquel PRN QID PRN TP MUSCLE PAIN; Start 08/03/18 at 21:45 Potassium Chloride (Klor-Con) 20 meq BIDWMEALS PO Last administered on 16:42; Start 08/04/18 at 08:00 Tramadol HCl (Ultram) 50 mg PRN QHS PRN PO PAIN Last administered on 08/03/18 22:20; Start 08/03/18 at 22:15; Stop 08/04/18 at 01:08; Status DC Tramadol HCl (Ultram) 50 mg PRN DAILY PRN PO PAIN; Start 08/03/18 at 21:45; Stop 08/04/18 at 01:08; Status DC Buspirone HCl (Buspar) 10 mg DAILY PO ; Start 08/04/18 at 09:00; Stop 08/04/18 at 09:00; Status DC Divalproex Sodium (Depakote Er) 500 mg BID PO Last administered on 08/04/18 08 :27; Start 08/04/18 at 09:00; Stop 08/04/18 at 13:30; Status DC Docusate Sodium (Colace) 200 mg DAILY PO Last administered on 08/17/18 07:34; Start 08/04/18 at 09:00 Duloxetine HCl (Cymbalta) 30 mg DAILY PO Last administered on 08/05/18 08:33; Start 08/04/18 at 09:00; Stop 08/05/18 at 11:09; Status DC Folic Acid (Folic Acid) 1 mg DAILY PO Last administered on 08/17/18 07:33; Start 08/04/18 at 09:00 Furosemide (Lasix) 40 mg BIDACBL PO Last administered on 08/17/18 12:05; Start 08/04/18 at 07:30 Hydralazine HCl (Apresoline) 50 mg TID PO Last administered on 08/17/18 19:42; Start 08/04/18 at 09:00 Insulin Human Lispro (HumaLOG) TID ac TIDAC SQ ; Start 08/04/18 at 07:30; Stop 08/04/18 at 07:30; Status DC Insulin Human Lispro (HumaLOG) 10 units TIDAC SQ ; Start 08/04/18 at 07:30; Stop 08/04/18 at 07:30; Status DC Magnesium Hydroxide (Milk Of Magnesia) 2,400 mg PRN DAILY PRN PO CONSTIPATION Last administered on 08/12/18 12:56; Start 08/03/18 at 22:00 Medroxyprogesterone Acetate (Provera) 15 mg DAILY PO Last administered on 09:14; Start 08/04/18 at 09:00; Stop 08/16/18 at 17:09; Status DC Melatonin 3 mg QHS PO Last administered on 08/17/18 19:35; Start 08/04/18 at 21 :00 Metoprolol Succinate (Toprol Xl) 100 mg DAILY PO Last administered on 08/17/18 07:35; Start 08/04/18 at 09:00 Multivitamins/ Calcium (Thera-M Plus) 1 tab DAILY PO Last administered on 07:33; Start 08/04/18 at 09:00 Olanzapine (ZyPREXA) 2.5 mg PRN Q2HR PRN PO AGITATION Last administered on 14:53; Start 08/03/18 at 22:00 Ondansetron HCl (Zofran Odt) 4 mg PRN Q6HRS PRN PO NAUSEA/VOMITING; Start 08/03 at 22:00 Quetiapine Fumarate (SEROquel) 25 mg QHS PO Last administered on 08/17/18 19:36 ; Start 08/04/18 at 21:00 Thiamine HCl (Vitamin B-1) 100 mg DAILY PO Last administered on 08/17/18 08:14 ; Start 08/04/18 at 09:00 Trazodone HCl (Desyrel) 150 mg PRN QHS PRN PO INSOMNIA Last administered on 02:27; Start 08/03/18 at 22:15 Triamcinolone Acetonide (Kenalog) 1 raquel PRN DAILY PRN TP RASH; Start 08/03/18 at 22:15; Stop 08/14/18 at 16:15; Status DC Lidocaine (Xylocaine) 1 raquel PRN DAILY PRN TP PAIN; Start 08/03/18 at 22:15; Stop 08/04/18 at 14:03; Status DC Insulin Glargine (Lantus) 30 units QHS SQ ; Start 08/04/18 at 21:00; Stop at 21:00; Status DC Insulin Human Lispro (HumaLOG) 0-7 UNITS TIDWMEALS PRN SQ ELEVATED BS; Start at 00:15 Dextrose 12.5 gm PRN Q15MIN PRN IV SEE COMMENTS; Start 08/04/18 at 00:15 Glucose (Insta-Glucose) 15 gm PRN Q15MIN PRN PO LOW BLOOD SUGAR; Start at 00:15 Insulin Human Lispro (HumaLOG) 10 units TIDAC SQ Last administered on at 12:22; Start 08/04/18 at 07:30; Stop 08/04/18 at 17:33; Status DC Buspirone HCl (Buspar) 10 mg PRN DAILY PRN PO ANXIETY / AGITATION; Start at 09:00 Tramadol HCl (Ultram) 50 mg PRN BID PRN PO PAIN Last administered on 08/17/18at 17:40; Start 08/04/18 at 01:15 Lactobacillus Rhamnosus (Culturelle) 1 cap BID PO Last administered on at 09:03; Start 08/04/18 at 09:00; Stop 08/15/18 at 16:40; Status DC Nystatin (Mycostatin) 1 raquel BID TP Last administered on 08/17/18at 19:45; Start 08/04/18 at 09:00 Cefpodoxime Proxetil (Vantin) 200 mg BID PO ; Start 08/04/18 at 09:00; Stop at 09:00; Status DC Doxycycline Hyclate (Vibra-Tab) 100 mg BID66 PO Last administered on 08/15/18at 06:00; Start 08/04/18 at 06:00; Stop 08/15/18 at 16:40; Status DC Cefdinir (Omnicef) 300 mg BID PO Last administered on 08/15/18at 09:04; Start at 09:00; Stop 08/15/18 at 16:40; Status DC Divalproex Sodium (Depakote) 500 mg BID PO Last administered on 08/11/18at 08:07 ; Start 08/04/18 at 21:00; Stop 08/11/18 at 19:13; Status DC Lidocaine (Xylocaine) 1 raquel PRN DAILY PRN TP PAIN; Start 08/04/18 at 14:15 Insulin Glargine (Lantus) 40 units QHS SQ Last administered on 08/17/18 19:44; Start 08/04/18 at 21:00 Insulin Human Lispro (HumaLOG) 15 units TIDAC SQ Last administered on 08/17/18 12:10; Start 08/05/18 at 07:30 Insulin Human Lispro (HumaLOG) 15 units 1X ONCE SQ Last administered on 09:39; Start 08/05/18 at 07:30; Stop 08/05/18 at 09:28; Status DC Duloxetine HCl (Cymbalta) 60 mg DAILY PO Last administered on 08/17/18 07:34; Start 08/06/18 at 09:00 Haloperidol Lactate (Haldol) 5 mg DAILY IM Last administered on 08/13/18 08:07 ; Start 08/09/18 at 15:00; Stop 08/14/18 at 17:45; Status DC Lorazepam (Ativan) 2 mg DAILY IM ; Start 08/09/18 at 15:00; Stop 08/09/18 at 15:00 ; Status DC Lorazepam (Ativan) 1 mg DAILY IM Last administered on 08/13/18 08:11; Start 08/09/18 at 15:00; Stop 08/14/18 at 17:45; Status DC Divalproex Sodium (Depakote) 500 mg DAILY PO Last administered on 08/17/18 07: 34; Start 08/12/18 at 09:00 Divalproex Sodium (Depakote Sprinkles) 750 mg HS PO Last administered on 19:41; Start 08/11/18 at 21:00; Stop 08/12/18 at 00:48; Status DC Divalproex Sodium (Depakote) 750 mg QHS PO Last administered on 08/17/18 19:36 ; Start 08/12/18 at 21:00 Triamcinolone Acetonide (Kenalog) 1 raquel PRN DAILY PRN TP RASH; Start 08/14/18 at 16:15 Medroxyprogesterone Acetate (Provera) 17.5 mg DAILY PO Last administered on 08/17 08:14; Start 08/17/18 at 09:00 Active Scripts Active Reported Cozaar (Losartan Potassium) 25 Mg Tablet 25 Mg PO DAILY Tramadol Hcl (Tramadol HCl) 50 Mg Tablet 50 Mg PO HS PRN Hydralazine Hcl 50 Mg Tablet 50 Mg PO TID Zyprexa (Olanzapine) 2.5 Mg Tablet 2.5 Mg PO PRN Q2HR PRN Metoprolol Succinate ( Xl ) (Metoprolol Succinate) 100 Mg Tab.er.24h 100 Mg PO DAILY Analgesic [place] (Methyl Salicylate/Menthol) 28 Gm Oint...g. 1 Raquel TP PRN QID PRN Mag-Al Plus Xs Suspension (Mag Hydrox/Al Hydrox/Simeth) 30 Ml Oral.susp 15 Ml PO PRN AFTMEALHC PRN Humalog (Insulin Lispro) 100 Unit/1 Ml Cartridge 10 Unit SQ TIDAC Lantus Solostar (Insulin Glargine,Hum.rec.anlog) 100 Unit/1 Ml Insuln.pen 30 Unit SQ QHS Duloxetine Hcl 30 Mg Capsule.dr 30 Mg PO DAILY Depakote (Divalproex Sodium) 500 Mg Tablet.dr 500 Mg PO BID Seroquel (Quetiapine Fumarate) 25 Mg Tablet 25 Mg PO HS Triamcinolone Acetonide 15 Gm Cream..g. 1 Raquel TP PRN DAILY PRN Ondansetron Odt (Ondansetron) 4 Mg Tab.rapdis 4 Mg PO PRN Q6HRS PRN Furosemide 40 Mg Tablet 60 Mg PO BIDACBL Acetaminophen 325 Mg Tablet 650 Mg PO PRN Q6HRS PRN Tramadol Hcl (Tramadol HCl) 50 Mg Tablet 50 Mg PO PRN DAILY PRN [Lidocaine Oint 5%] 1 Raquel TP PRN DAILY Apply to heel prior to wound debridement. One Daily Plus Minerals (Multivitamin With Minerals) 1 Each Tablet 1 Tab PO DAILY Docusate Sodium 100 Mg Capsule 200 Mg PO DAILY Humalog (Insulin Lispro) 100 Unit/1 Ml Cartridge 0-7 Unit SQ TIDAC For BG <70 units, notify provider IF EATING IF NOT EATING B-150 0 units 0 units B-200 3 units 0 units B-250 4 units 2 units B-300 6 units 3 units B-350 7 units 4 units BG <60 or >351 notify provider Trazodone Hcl 150 Mg Tablet 1 Tab PO QHS Medroxyprogesterone Acetate 10 Mg Tablet 15 Mg PO DAILY Buspirone Hcl 10 Mg Tablet 1 Tab PO DAILY Klor-Con M20 (Potassium Chloride) 20 Meq Tab.er.prt 1 Tab PO BIDWMEALS Melatonin 3 Mg Tablet 1 Tab PO QHS Milk Of Magnesia (Magnesium Hydroxide) 2,400 Mg/10 Ml Oral.susp 2,400 Mg PO PRN DAILY PRN Thiamine Hcl 100 Mg Tablet 100 Mg PO DAILY Folic Acid 1 Mg Tablet 1 Tab PO DAILY Gabapentin (Gabapentin) 100 Mg Capsule 100 Mg PO TIDWMEALS I have reviewed the current psychotropics carefully including drug interactions. Risk benefit ratio favors no change other than as noted in my dictated progress note. Diagnosis: Problems: (1) Anxiety disorder (2) Impulse control disorder (3) Bipolar affective disorder, mixed (4) Dementia, vascular, with delusions (5) Dementia with behavioral disturbance LIZ DIANE MD Aug 17, 2018 22:33
[2018-08-18] MEDS ORDERED: DIVA-53 PO (00:57)
[2018-08-18] MEDS ORDERED: DULO60CA6 PO (01:01)
[2018-08-18] MEDS ORDERED: MEDR10TA PO (01:10)
[2018-08-18] MEDS ORDERED: MEDR2.5T PO (01:10)
[2018-08-18] MEDS ORDERED: MEDR5TAB PO (01:10)
[2018-08-18] MEDS ORDERED: NYST15CR TP (01:16)
[2018-08-18] MEDS ORDERED: DEXT38GE2 PO (01:18)
[2018-08-18 05:58] VITALS: BP 103/67
[2018-08-18] MEDS: medroxyPROGESTERone 5 MG TABLET PO SCH (07:52)
[2018-08-18] MEDS: DOCUSATE SODIUM 100 MG CAPSULE PO SCH (07:53)
[2018-08-18] MEDS: THIAMINE 100 MG TABLET. PO SCH (07:53)
[2018-08-18] MEDS: DULoxetine HCL 60 MG CAPSULE.DR PO SCH (07:53)
[2018-08-18] MEDS: FUROSEMIDE 40 MG TABLET PO SCH ×2 (07:54→12:10)
[2018-08-18] MEDS: MULTIVITAMIN with MINERAL TABLET. PO SCH (07:54)
[2018-08-18] MEDS: FOLIC ACID 1 MG TABLET PO SCH (07:54)
[2018-08-18] MEDS: DIVALPROEX SODIUM 250 MG TABLET.DR. PO SCH (07:54)
[2018-08-18] MEDS: POTASSIUM CHLORIDE 20 MEQ TABLET.ER. PO SCH ×2 (07:54→17:20)
[2018-08-18] MEDS: METOPROLOL SUCC 24HR ER 50 MG TAB.ER.24H. PO SCH (07:54)
[2018-08-18] MEDS: LOSARTAN 25 MG TABLET. PO SCH (07:55)
[2018-08-18] MEDS: INSULIN LISPRO 300 UNITS/3 ML INSULN.PEN. SQ SCH ×3 (07:59→16:30)
[2018-08-18] MEDS: GABAPENTIN 100 MG CAPSULE. PO SCH ×3 (08:00→17:19)
[2018-08-18] MEDS: NYSTATIN 100,000 UNIT/GM TOPICAL CREAM 15GM TUBE. TP SCH ×2 (09:00→21:17)
[2018-08-18 16:37] VITALS: BP 119/79
[2018-08-18] MEDS: MELATONIN 3 MG TABLET PO SCH (19:46)
[2018-08-18] MEDS: QUEtiapine 25 MG TABLET. PO SCH (19:47)
[2018-08-18] MEDS: DIVALPROEX SODIUM 125 MG TABLET.DR. PO SCH (19:47)
[2018-08-18] MEDS: INSULIN GLARGINE 300 UNITS/3 ML INSULN.PEN. SQ SCH (19:49)
--- NOTE | 2018-08-18 22:39 | PDOC ---
Exam Note: Adriano Note: Please also refer to the separate dictated note~for this date of service dictated separately.~Patient seen individually. Discussed the patient with Nursing staff reviewed the chart.~Reviewed interim history and current functioning. Reviewed vital signs,~Labs/ Radiology~and current medications noted below. Continue current treatment with the changes noted in the dictated addendum note Assessment: Vital Signs: Vital Signs Date Time Temp Pulse Resp B/P (MAP) Pulse Ox O2 Delivery O2 Flow Rate FiO2 08/18/18 19:46 57 119/79 08/18/18 16:37 98.1 19 98 08/17/18 06:40 Room Air I&O Intake and Output 08/18/18 07:00 Intake Total 1280 ml Balance 1280 ml Intake Oral 1280 ml Labs: Laboratory Tests Test 08/18/18 07:18 08/18/18 11:17 08/18/18 16:22 08/18/18 19:07 Glucose (Fingerstick) 178 mg/dL (70-99) H 126 mg/dL (70-99) H 81 mg/dL (70-99) 157 mg/dL (70-99) H Current Medications: Meds: Current Medications Acetaminophen (Tylenol) 650 mg PRN Q6HRS PRN PO PAIN / TEMP Last administered on 08/17/18at 05:40; Start 08/03/18 at 21:45 Gabapentin (Neurontin) 100 mg TIDWMEALS PO Last administered on 08/18/18at 17:19 ; Start 08/04/18 at 08:00 Insulin Glargine (Lantus) 30 units QHS SQ ; Start 08/04/18 at 21:00; Stop at 21:00; Status DC Losartan Potassium (Cozaar) 25 mg DAILY PO Last administered on 08/18/18at 07:55 ; Start 08/04/18 at 09:00 Al Hydroxide/Mg Hydroxide (Mylanta Plus Xs) 15 ml PRN AFTMEALHC PRN PO DYSPEPSIA; Start 08/03/18 at 21:45 Multi-Ingredient Ointment (Analgesic Speedwell) 1 raquel PRN QID PRN TP MUSCLE PAIN; Start 08/03/18 at 21:45 Potassium Chloride (Klor-Con) 20 meq BIDWMEALS PO Last administered on at 17:20; Start 08/04/18 at 08:00 Tramadol HCl (Ultram) 50 mg PRN QHS PRN PO PAIN Last administered on 08/03/18at 22:20; Start 08/03/18 at 22:15; Stop 08/04/18 at 01:08; Status DC Tramadol HCl (Ultram) 50 mg PRN DAILY PRN PO PAIN; Start 08/03/18 at 21:45; Stop 08/04/18 at 01:08; Status DC Buspirone HCl (Buspar) 10 mg DAILY PO ; Start 08/04/18 at 09:00; Stop 08/04/18 at 09:00; Status DC Divalproex Sodium (Depakote Er) 500 mg BID PO Last administered on 08/04/18 08 :27; Start 08/04/18 at 09:00; Stop 08/04/18 at 13:30; Status DC Docusate Sodium (Colace) 200 mg DAILY PO Last administered on 08/18/18 07:53; Start 08/04/18 at 09:00 Duloxetine HCl (Cymbalta) 30 mg DAILY PO Last administered on 08/05/18 08:33; Start 08/04/18 at 09:00; Stop 08/05/18 at 11:09; Status DC Folic Acid (Folic Acid) 1 mg DAILY PO Last administered on 08/18/18 07:54; Start 08/04/18 at 09:00 Furosemide (Lasix) 40 mg BIDACBL PO Last administered on 08/18/18 12:10; Start 08/04/18 at 07:30 Hydralazine HCl (Apresoline) 50 mg TID PO Last administered on 08/18/18 19:46 ; Start 08/04/18 at 09:00 Insulin Human Lispro (HumaLOG) TID ac TIDAC SQ ; Start 08/04/18 at 07:30; Stop 08/04/18 at 07:30; Status DC Insulin Human Lispro (HumaLOG) 10 units TIDAC SQ ; Start 08/04/18 at 07:30; Stop 08/04/18 at 07:30; Status DC Magnesium Hydroxide (Milk Of Magnesia) 2,400 mg PRN DAILY PRN PO CONSTIPATION Last administered on 08/12/18 12:56; Start 08/03/18 at 22:00 Medroxyprogesterone Acetate (Provera) 15 mg DAILY PO Last administered on 09:14; Start 08/04/18 at 09:00; Stop 08/16/18 at 17:09; Status DC Melatonin 3 mg QHS PO Last administered on 08/18/18 19:46; Start 08/04/18 at 21:00 Metoprolol Succinate (Toprol Xl) 100 mg DAILY PO Last administered on 07:54; Start 08/04/18 at 09:00 Multivitamins/ Calcium (Thera-M Plus) 1 tab DAILY PO Last administered on 07:54; Start 08/04/18 at 09:00 Olanzapine (ZyPREXA) 2.5 mg PRN Q2HR PRN PO AGITATION Last administered on 14:53; Start 08/03/18 at 22:00 Ondansetron HCl (Zofran Odt) 4 mg PRN Q6HRS PRN PO NAUSEA/VOMITING; Start 08/03 at 22:00 Quetiapine Fumarate (SEROquel) 25 mg QHS PO Last administered on 08/18/18 19: 47; Start 08/04/18 at 21:00 Thiamine HCl (Vitamin B-1) 100 mg DAILY PO Last administered on 08/18/18 07:53 ; Start 08/04/18 at 09:00 Trazodone HCl (Desyrel) 150 mg PRN QHS PRN PO INSOMNIA Last administered on 02:27; Start 08/03/18 at 22:15 Triamcinolone Acetonide (Kenalog) 1 raquel PRN DAILY PRN TP RASH; Start 08/03/18 at 22:15; Stop 08/14/18 at 16:15; Status DC Lidocaine (Xylocaine) 1 raquel PRN DAILY PRN TP PAIN; Start 08/03/18 at 22:15; Stop 08/04/18 at 14:03; Status DC Insulin Glargine (Lantus) 30 units QHS SQ ; Start 08/04/18 at 21:00; Stop at 21:00; Status DC Insulin Human Lispro (HumaLOG) 0-7 UNITS TIDWMEALS PRN SQ ELEVATED BS; Start at 00:15 Dextrose 12.5 gm PRN Q15MIN PRN IV SEE COMMENTS; Start 08/04/18 at 00:15 Glucose (Insta-Glucose) 15 gm PRN Q15MIN PRN PO LOW BLOOD SUGAR; Start at 00:15 Insulin Human Lispro (HumaLOG) 10 units TIDAC SQ Last administered on at 12:22; Start 08/04/18 at 07:30; Stop 08/04/18 at 17:33; Status DC Buspirone HCl (Buspar) 10 mg PRN DAILY PRN PO ANXIETY / AGITATION; Start at 09:00 Tramadol HCl (Ultram) 50 mg PRN BID PRN PO PAIN Last administered on 08/17/18at 17:40; Start 08/04/18 at 01:15 Lactobacillus Rhamnosus (Culturelle) 1 cap BID PO Last administered on at 09:03; Start 08/04/18 at 09:00; Stop 08/15/18 at 16:40; Status DC Nystatin (Mycostatin) 1 raquel BID TP Last administered on 08/18/18at 21:17; Start 08/04/18 at 09:00 Cefpodoxime Proxetil (Vantin) 200 mg BID PO ; Start 08/04/18 at 09:00; Stop at 09:00; Status DC Doxycycline Hyclate (Vibra-Tab) 100 mg BID66 PO Last administered on 08/15/18at 06:00; Start 08/04/18 at 06:00; Stop 08/15/18 at 16:40; Status DC Cefdinir (Omnicef) 300 mg BID PO Last administered on 08/15/18at 09:04; Start at 09:00; Stop 08/15/18 at 16:40; Status DC Divalproex Sodium (Depakote) 500 mg BID PO Last administered on 08/11/18at 08:07 ; Start 08/04/18 at 21:00; Stop 08/11/18 at 19:13; Status DC Lidocaine (Xylocaine) 1 raquel PRN DAILY PRN TP PAIN; Start 08/04/18 at 14:15 Insulin Glargine (Lantus) 40 units QHS SQ Last administered on 08/18/18 19:49 ; Start 08/04/18 at 21:00 Insulin Human Lispro (HumaLOG) 15 units TIDAC SQ Last administered on 12:11; Start 08/05/18 at 07:30 Insulin Human Lispro (HumaLOG) 15 units 1X ONCE SQ Last administered on 09:39; Start 08/05/18 at 07:30; Stop 08/05/18 at 09:28; Status DC Duloxetine HCl (Cymbalta) 60 mg DAILY PO Last administered on 08/18/18 07:53; Start 08/06/18 at 09:00 Haloperidol Lactate (Haldol) 5 mg DAILY IM Last administered on 08/13/18 08:07 ; Start 08/09/18 at 15:00; Stop 08/14/18 at 17:45; Status DC Lorazepam (Ativan) 2 mg DAILY IM ; Start 08/09/18 at 15:00; Stop 08/09/18 at 15:00 ; Status DC Lorazepam (Ativan) 1 mg DAILY IM Last administered on 08/13/18 08:11; Start 08/09/18 at 15:00; Stop 08/14/18 at 17:45; Status DC Divalproex Sodium (Depakote) 500 mg DAILY PO Last administered on 08/18/18 07: 54; Start 08/12/18 at 09:00 Divalproex Sodium (Depakote Sprinkles) 750 mg HS PO Last administered on 19:41; Start 08/11/18 at 21:00; Stop 08/12/18 at 00:48; Status DC Divalproex Sodium (Depakote) 750 mg QHS PO Last administered on 08/18/18 19:47 ; Start 08/12/18 at 21:00 Triamcinolone Acetonide (Kenalog) 1 raquel PRN DAILY PRN TP RASH; Start 08/14/18 at 16:15 Medroxyprogesterone Acetate (Provera) 17.5 mg DAILY PO Last administered on 07:52; Start 08/17/18 at 09:00 Active Scripts Active Reported Glucose Gel (Dextrose) 38 Gm Gel..gram. 15 Gm PO PRN Q15MIN PRN Nystatin 15 Gm Cream..g. 1 Raquel TP BID Provera (Medroxyprogesterone Acetate) 10 Mg Tablet 10 Mg PO DAILY Provera (Medroxyprogesterone Acetate) 5 Mg Tablet 5 Mg PO DAILY Provera (Medroxyprogesterone Acetate) 2.5 Mg Tablet 2.5 Mg PO DAILY Cymbalta (Duloxetine Hcl) 60 Mg Capsule.dr 60 Mg PO DAILY Divalproex Sodium 500 Mg Tablet.dr 750 Mg PO QHS Cozaar (Losartan Potassium) 25 Mg Tablet 25 Mg PO DAILY Tramadol Hcl (Tramadol HCl) 50 Mg Tablet 50 Mg PO HS PRN Hydralazine Hcl 50 Mg Tablet 50 Mg PO TID Zyprexa (Olanzapine) 2.5 Mg Tablet 2.5 Mg PO PRN Q2HR PRN Metoprolol Succinate ( Xl ) (Metoprolol Succinate) 100 Mg Tab.er.24h 100 Mg PO DAILY Analgesic Speed[place] (Methyl Salicylate/Menthol) 28 Gm Oint...g. 1 Raquel TP PRN QID PRN Mag-Al Plus Xs Suspension (Mag Hydrox/Al Hydrox/Simeth) 30 Ml Oral.susp 15 Ml PO PRN AFTMEALHC PRN Humalog (Insulin Lispro) 100 Unit/1 Ml Cartridge 10 Unit SQ TIDAC Lantus Solostar (Insulin Glargine,Hum.rec.anlog) 100 Unit/1 Ml Insuln.pen 30 Unit SQ QHS Duloxetine Hcl 30 Mg Capsule. 30 Mg PO DAILY Depakote (Divalproex Sodium) 500 Mg Tablet.dr 500 Mg PO BID Seroquel (Quetiapine Fumarate) 25 Mg Tablet 25 Mg PO HS Triamcinolone Acetonide 15 Gm Cream..g. 1 Raquel TP PRN DAILY PRN Ondansetron Odt (Ondansetron) 4 Mg Tab.rapdis 4 Mg PO PRN Q6HRS PRN Furosemide 40 Mg Tablet 60 Mg PO BIDACBL Acetaminophen 325 Mg Tablet 650 Mg PO PRN Q6HRS PRN Tramadol Hcl (Tramadol HCl) 50 Mg Tablet 50 Mg PO PRN DAILY PRN [Lidocaine Oint 5%] 1 Raquel TP PRN DAILY Apply to heel prior to wound debridement. One Daily Plus Minerals (Multivitamin With Minerals) 1 Each Tablet 1 Tab PO DAILY Docusate Sodium 100 Mg Capsule 200 Mg PO DAILY Humalog (Insulin Lispro) 100 Unit/1 Ml Cartridge 0-7 Unit SQ TIDAC For BG <70 units, notify provider IF EATING IF NOT EATING B-150 0 units 0 units B-200 3 units 0 units B-250 4 units 2 units B-300 6 units 3 units B-350 7 units 4 units BG <60 or >351 notify provider Trazodone Hcl 150 Mg Tablet 1 Tab PO QHS Medroxyprogesterone Acetate 10 Mg Tablet 15 Mg PO DAILY Buspirone Hcl 10 Mg Tablet 1 Tab PO DAILY Klor-Con M20 (Potassium Chloride) 20 Meq Tab.er.prt 1 Tab PO BIDWMEALS Melatonin 3 Mg Tablet 1 Tab PO QHS Milk Of Magnesia (Magnesium Hydroxide) 2,400 Mg/10 Ml Oral.susp 2,400 Mg PO PRN DAILY PRN Thiamine Hcl 100 Mg Tablet 100 Mg PO DAILY Folic Acid 1 Mg Tablet 1 Tab PO DAILY Gabapentin (Gabapentin) 100 Mg Capsule 100 Mg PO TIDWMEALS I have reviewed the current psychotropics carefully including drug interactions. Risk benefit ratio favors no change other than as noted in my dictated progress note. Diagnosis: Problems: (1) Anxiety disorder (2) Impulse control disorder (3) Bipolar affective disorder, mixed (4) Dementia, vascular, with delusions (5) Dementia with behavioral disturbance LIZ DIANE MD Aug 18, 2018 22:39
[2018-08-19 05:56] VITALS: BP 167/82
[2018-08-19] MEDS: DOCUSATE SODIUM 100 MG CAPSULE PO SCH (08:00)
[2018-08-19] MEDS: DULoxetine HCL 60 MG CAPSULE.DR PO SCH (08:00)
[2018-08-19] MEDS: MULTIVITAMIN with MINERAL TABLET. PO SCH (08:01)
[2018-08-19] MEDS: DIVALPROEX SODIUM 250 MG TABLET.DR. PO SCH (08:01)
[2018-08-19] MEDS: FOLIC ACID 1 MG TABLET PO SCH (08:01)
[2018-08-19] MEDS: METOPROLOL SUCC 24HR ER 50 MG TAB.ER.24H. PO SCH (08:02)
[2018-08-19] MEDS: medroxyPROGESTERone 5 MG TABLET PO SCH (08:02)
[2018-08-19] MEDS: POTASSIUM CHLORIDE 20 MEQ TABLET.ER. PO SCH (08:02)
[2018-08-19] MEDS: LOSARTAN 25 MG TABLET. PO SCH (08:03)
[2018-08-19] MEDS: THIAMINE 100 MG TABLET. PO SCH (08:03)
[2018-08-19] MEDS: FUROSEMIDE 40 MG TABLET PO SCH ×2 (08:03→12:15)
[2018-08-19] MEDS: INSULIN LISPRO 300 UNITS/3 ML INSULN.PEN. SQ SCH ×2 (08:05→12:16)
[2018-08-19] MEDS: GABAPENTIN 100 MG CAPSULE. PO SCH ×2 (08:07→12:15)
[2018-08-19] MEDS: traMADol 50 MG TABLET PO PRN (10:47)
[2018-08-19] MEDS: NYSTATIN 100,000 UNIT/GM TOPICAL CREAM 15GM TUBE. TP SCH (12:17)
[2018-08-19 14:35] VITALS: BP 105/62
--- NOTE | 2018-08-19 19:51 | PN ---
DATE: 08/17/2018 PSYCHIATRIC PROGRESS NOTE This late entry 08/17/2018 covers elements not covered in my initial note. SUBJECTIVE: I met with the patient at some length in his room. He slept 7-1/2 hours the previous night. He has been less inappropriate sexually and more compliant with nursing staff. REVIEW OF SYSTEMS: Ambulation impaired, in wheelchair/walker due to wounds on his feet. No CV, , pulmonary, eye system symptoms on review. MENTAL STATUS EXAM: Reasonably oriented. Speech is coherent, has some latency. Abstraction is fair, computation impaired, language function intact, attention span short. Mood and affect are still somewhat dysphoric, anxious, but better than before. LABORATORY DATA: Reviewed. IMPRESSION: Unchanged from initial note. PLAN: No change from initial note. Social service staff are actively looking for placement options. MAN Newton DIANE MD DR: MATILDA/james JOB#: [id number] / [id number]
[2018-08-19] MEDS ORDERED: DIVALPROEX SODIUM 250 MG TABLET.DR. PO SCH (21:00)
--- NOTE | 2018-08-19 22:22 | PN ---
DATE: 08/17/2018 PSYCHIATRIC PROGRESS NOTE Note that I just dictated on the patient on the dictation number [id number] is for date of service 08/17/2018. This note clarifies this. MAN Newton DIANE MD DR: Gamaliel JOB#: [id number] / [id number]
--- NOTE | 2018-08-20 23:42 | DS ---
DATE OF DISCHARGE: 08/19/2018 DISCHARGE SUMMARY/PSYCHIATRIC PROGRESS NOTE This is a late entry for 08/19/2018 covers elements not covered in my initial note. REASON FOR ADMISSION: Please refer to the admission history for details. Briefly, the patient is a 73-year-old male referred to us from [facility] after he was medically stabilized for complications he developed while he was at [facility] for his marked aggression, impulse control, depression, unmanageable behaviors at the intermediate. SIGNIFICANT FINDINGS AND CLINICAL COURSE: Following admission, the patient was seen daily individually by myself from a psychiatric standpoint, medical followup with Dr. Chapman. The patient remained extremely anxious, labile and somewhat explosive at times, especially during cares. He did have short-term memory deficits, sexually inappropriate at times, grabbing the rear end of nursing staff, throwing objects at staff. Prior to transfer to us from [place], he had made statements that "I don't want to live like this indicative of suicidal ideation." I met with the patient daily individually from a psychiatric standpoint. Adjustments were made in his psychotropics and he seemed to respond to a combination of Depakote delayed release 500 mg in the morning, 750 at night with the therapeutic blood level along with Cymbalta 60 mg a day, gabapentin 100 mg 3 times a day, Zyprexa p.r.n., Seroquel 25 mg at bedtime, BuSpar 10 mg daily, Provera 15 mg daily, trazodone 150 mg at bedtime p.r.n., melatonin 3 mg at bedtime. REVIEW OF SYSTEMS: Prior to discharge on 08/19/2018, ambulation impaired with walker. No CV, , pulmonary, eye, ENT system symptoms on review. MENTAL STATUS EXAM: Oriented to himself and situation. Speech is coherent, has some latency, low in volume. Abstraction fair, computation impaired, language function intact, attention span short. Mood and affect showing improvement. LABORATORY DATA: Reviewed. FINAL DIAGNOSES: Major depressive disorder, recurrent with psychotic features, in partial remission; anxiety disorder, unspecified; impulse control disorder, unspecified; mild cognitive impairment. Rest unchanged from admission. DISCHARGE MEDICATIONS: Please refer to the MRAD. DISCHARGE INSTRUCTIONS: The patient was transferred to the [facility]. Outpatient psychiatric and medical followup at the intermediate. MAN Newton DIANE MD DR: Gamaliel JOB#: [id number] / [id number]
--- NOTE | 2018-08-21 15:23 | PN ---
DATE: 08/18/2018 PSYCHIATRIC PROGRESS NOTE This late entry, date of service 08/18/2018, covers elements not covered in my initial note. SUBJECTIVE: I met with the patient the evening of 08/18/2018. The patient slept 9 hours previous night. He remains fairly compliant, still depressed, withdrawn, but not sexually inappropriate. I met with him in his room. REVIEW OF SYSTEMS: Ambulation impaired. No CV, , pulmonary, eye, ENT system symptoms on review. MENTAL STATUS EXAM: Oriented reasonably. Speech is coherent, has some latency. Abstraction fair, computation impaired, language function intact, attention span short. Mood and affect somewhat withdrawn. LABORATORY DATA: Reviewed. IMPRESSION: Unchanged from initial note. PLAN: No change from initial note. MAN Newton DIANE MD DR: MATILDA/james JOB#: [id number] / [id number]
== END 2018-08-19 15:00 | DRG 885 ==
LOC: GEROPSY 20:30
PROVIDERS: ADMIT Psychiatry & Neurology Psychiatry; ATTEND Psychiatry & Neurology Psychiatry
DX: F31.5 Bipolar disorder, current episode depressed, severe, with psychotic features (principal); F01.51 Vascular dementia, unspecified severity, with behavioral disturbance; R45.851 Suicidal ideations; F63.9 Impulse disorder, unspecified; F41.9 Anxiety disorder, unspecified; E11.42 Type 2 diabetes mellitus with diabetic polyneuropathy; F10.10 Alcohol abuse, uncomplicated; I10 Essential (primary) hypertension; L89.619 Pressure ulcer of right heel, unspecified stage; L89.629 Pressure ulcer of left heel, unspecified stage; Z79.899 Other long term (current) drug therapy; Z87.891 Personal history of nicotine dependence; Z88.2 Allergy status to sulfonamides
CPT/HCPCS: 36415; 80053; 80164; 82947; 85025; 85027; J1630; J1815; J2060; 97110; 97116; 97530; 97535